=== PATIENT | male | born 1955 | race Asian ===

== ENCOUNTER 2016-11-06 01:44 | Emergency (ER) | payer MEDICARE ==
[2016-11-06] MEDS ORDERED: ASPIRIN 81 MG TABLET, CHEWABLE PO ONE (03:03)
[2016-11-06] MEDS ORDERED: ONDANSETRON 4 MG TAB.RAPDIS PO ONE (03:04)
[2016-11-06 03:38] LABS: ABSOLUTE BASOPHILS # (AUTO) 0.1 10^3/uL (0.0-0.2); ABSOLUTE EOSINOPHILS # (AUTO) 0.3 10^3/uL (0.0-0.6); ABSOLUTE LYMPHOCYTES (AUTO) 0.7 10^3/uL (0.5-4.7); ABSOLUTE MONOCYTES (AUTO) 0.6 10^3/uL (0.1-1.4); ABSOLUTE NEUT (AUTO) 3.4 10^3/uL (1.7-8.2); BASOPHILS % (AUTO) 1.7 % (0-2); EOSINOPHILS % (AUTO) 6.3 % (0-6); HEMATOCRIT 30.5 % (37.9-51.0); HEMOGLOBIN 9.9 g/dL (13.5-17.0); HGB HCT DIFFERENCE -0.8; LYMPHOCYTES % (AUTO) 13.5 % (13-45); MEAN CORPUSCULAR HEMOGLOBIN 31.4 pg (27.0-33.4); MEAN CORPUSCULAR HGB CONC 32.6 g/dL (32.0-36.0); MEAN CORPUSCULAR VOLUME 96 fl (80-97); RED BLOOD COUNT 3.17 10^6/uL (4.35-5.55); RED CELL DISTRIBUTION WIDTH 25.2 % (11.5-14.0); SEGMENTED NEUTROPHILS % (AUTO) 66.5 % (42-78); WHITE BLOOD COUNT 5.2 10^3/uL (4.0-10.5)
--- NOTE | 2016-11-06 03:38 | RADIOLOGY REPORT (SQ) ---
EXAM DESCRIPTION: CHEST SINGLE VIEW COMPLETED DATE/TIME: 11/06/2016 3:02 am REASON FOR STUDY: SOB COMPARISON: Chest x-ray 02/18/2016, CT chest 08/28/2015. EXAM PARAMETERS: NUMBER OF VIEWS: One view. TECHNIQUE: Single frontal radiographic view of the chest acquired. RADIATION DOSE: NA LIMITATIONS: None. FINDINGS: LUNGS AND PLEURA: No consolidation, pneumothorax or pleural effusion. MEDIASTINUM AND HILAR STRUCTURES: No masses. Contour normal. HEART AND VASCULAR STRUCTURES: The heart remains moderately enlarged. No overt vascular congestion. BONES: No acute findings. HARDWARE: None in the chest. IMPRESSION: Stable cardiomegaly. No consolidation or pleural effusion. TECHNICAL DOCUMENTATION: JOB ID: [id number]
[2016-11-06 03:40] LABS: ALANINE AMINOTRANSFERASE 36 U/L (21-72); ALBUMIN 4.3 g/dL (3.5-5.0); ALKALINE PHOSPHATASE 90 U/L (38-126); ANION GAP 15 (5-19); ASPARTATE AMINO TRANSFERASE 34 U/L (17-59); BILIRUBIN,DIRECT 0.5 mg/dL (0.0-0.4); BILIRUBIN,TOTAL 1.4 mg/dL (0.2-1.3); BLOOD UREA NITROGEN 35 mg/dL (7-20); CALCIUM 8.9 mg/dL (8.4-10.2); CARBON DIOXIDE 29 mmol/L (22-30); CHLORIDE 97 mmol/L (98-107); CREATINE KINASE 215 U/L (55-170); CREATININE RESULT 5.56 mg/dL (0.52-1.25); GLUCOSE 92 mg/dL (75-110); POTASSIUM 5.1 mmol/L (3.6-5.0); TOTAL PROTEIN 8.4 g/dL (6.3-8.2)
[2016-11-06 03:52] LABS: CREATINE KINASE MB 3.06 ng/mL (<4.55)
[2016-11-06 03:57] LABS: TROPONIN I 0.087 ng/mL
[2016-11-06 03:59] LABS: TOXIC VACUOLATION PRESENT
[2016-11-06 04:00] LABS: ACANTHOCYTES SLIGHT; ANISOCYTOSIS 3+; OVALOCYTES 1+; POIKILOCYTOSIS 2+; STOMATOCYTES 1+
[2016-11-06 04:01] LABS: TARGET CELLS 2+; TEAR DROP CELLS 1+
[2016-11-06 04:07] VITALS: BP 192/81
[2016-11-06] MEDS ORDERED: MAG HYDROX/AL HYDROX/SIMETH SUSP 30 ML UDCUP PO ONE (04:37)
[2016-11-06] MEDS ORDERED: LIDOCAINE 2% VISCOUS SOLN 20 ML UDCUP PO ONE (04:37)
--- NOTE | 2016-11-06 05:36 | ER Document Report ---
ED General - General Chief Complaint: Shortness Of Breath Stated Complaint: SHORTNESS OF BREATH Time Seen by Provider: 11/06/16 02:55 Notes: Patient is a 61 year old male with emergency department complaining of epigastric discomfort with radiation to his chest since yesterday afternoon before dialysis. Patient describes the patient is a chronic pressure and burning sensation starting in the stomach radiating up into his chest. Otherwise he admits to associated nausea, shortness of breath. Denies any chest pain, cough, dyspnea on exertion, neck pain, arm pain. Denies any vomiting, diarrhea or constipation. Denies any fevers or chills. Past medical history significant for end-stage renal disease secondary to type 2 diabetes TRAVEL OUTSIDE OF THE [place] IN LAST 30 DAYS: No - Related Data Allergies/Adverse Reactions: vancomycin [Vancomycin] Adverse Reaction (Unknown, Verified 11/06/16 02:08) molina syndrome Past Medical History - Social History Smoking Status: Never Smoker Frequency of alcohol use: None Drug Abuse: None Family History: Reviewed & Not Pertinent - Past Medical History Cardiac Medical History: Reports: Hx Congestive Heart Failure, Hx Coronary Artery Disease Endocrine Medical History: Reports: Hx Diabetes Mellitus Type 2 Renal/ Medical History: Reports: Hx End Stage Renal Disease, Hx Hemodialysis, Hx Renal Insufficiency GI Medical History: Reports: Hx Gastroesophageal Reflux Disease Musculoskeltal Medical History: Denies Hx Arthritis Past Surgical History: Reports: Hx Orthopedic Surgery, Hx Vascular Surgery - Immunizations Hx Diphtheria, Pertussis, Tetanus Vaccination: Yes Hx Pneumococcal Vaccination: 02/05/15 Review of Systems - Review of Systems Constitutional: No symptoms reported Cardiovascular: No symptoms reported Respiratory: See HPI Gastrointestinal: See HPI -: Yes All other systems reviewed and negative Physical Exam - Vital signs Vitals: Temp Resp BP Pulse Ox 98.2 F 20 187/78 H 100 11/06/16 02:04 11/06/16 02:04 11/06/16 02:04 11/06/16 02:04 - Notes Notes: PHYSICAL EXAM GENERAL: Alert, interacts well. NECK: Full range of motion. Supple. Trachea midline. LUNGS: Clear to auscultation bilaterally, no wheezes, rales, or rhonchi. No respiratory distress. HEART: Regular rate and rhythm. No murmurs, gallops, or rubs. ABDOMEN: Soft, nondistended, mild tenderness in the epigastrium. No guarding, rebound, or rigidity.. Bowel sounds present in all 4 quadrants. EXTREMITIES: Moves all 4 extremities spontaneously. No edema, radial and dorsalis pedis pulses 2/4 bilaterally. No cyanosis. NEUROLOGICAL: Alert and oriented x4. Normal speech. PSYCH: Normal affect, normal mood. SKIN: Warm, dry, normal turgor. No rashes or lesions noted. Course - Re-evaluation Re-evalutation: 11/06/16 06:39 Patient is a 61-year-old male but is stable, no acute distress and afebrile. Patient is very well in appearance, vitals within normal limits. Low clinical suspicion for ACS given clinical history, exam, EKG without ST elevations or depressions, and troponins consistent with his baseleine elevations. HEART score less than or equal to 3. PE also seems unlikely given clinical history, absence of tachycardia or dyspnea. Well's score of 0. CXR without evidence of pneumothorax or pneumonia. No widened mediastinum. Aortic dissection also seems unlikely given history, symmetric pulses, CXR, and vitals. At this time will discharge with return precautions and follow-up recommendations. Findings on PE consistent with GERD, patient with complete resolution after GI cocktail. Verbal discharge instructions given a the bedside and opportunity for questions given. Medication warnings reviewed. Patient is in agreement with this plan and has verbalized understanding of return precautions and the need for primary care follow-up in the next 24-72 hours. - Vital Signs Vital signs: Temp Pulse Resp BP Pulse Ox 98.2 F 18 192/81 H 97 11/06/16 02:04 11/06/16 04:01 11/06/16 04:01 11/06/16 04:01 - Laboratory Result Diagrams: 11/06/16 03:11 11/06/16 03:11 Laboratory results interpreted by me: 11/06/16 11/06/16 03:11 03:11 RBC 3.17 L Hgb 9.9 L Hct 30.5 L RDW 25.2 H Plt Count 135 L Eosinophils % 6.3 H Potassium 5.1 H Chloride 97 L BUN 35 H Creatinine 5.56 H Est GFR ( Amer) 13 L Est GFR (Non-Af Amer) 10 L Total Bilirubin 1.4 H Direct Bilirubin 0.5 H Creatine Kinase 215 H Total Protein 8.4 H - Diagnostic Test Radiology reviewed: Image reviewed, Reports reviewed - EKG Interpretation by Me When compared to previous EKG there are: No significant change Discharge - Discharge Clinical Impression: Heartburn Condition: Good Disposition: HOME, SELF-CARE Instructions: Reflux Disease (GERD) ([facility]) Additional Instructions: NORMAL EXAM AND WORKUP: At this time, your examination and workup show no significant abnormality. No significant abnormal physical findings were noted. All laboratory, EKG, and imaging (x-ray, CT scans, ultrasound) studies that were ordered show no significant abnormality. Although your examination and all studies that were ordered showed no significant abnormal finding, there are no examinations and no studies that are 100% accurate. There is always the possibility that some abnormality could exist and not be detected with physical examination or within the limits and capabilities of laboratory and other studies. You should return or follow up as you were instructed on your visit today for further evaluation if your symptoms do not resolve. ACID REFLUX DISEASE (GERD): Gastro-Esophageal Reflux Disease (GERD) is caused by stomach acid refluxing back up into the esophagus. The valve at the end of the esophagus may be weak. This is common in persons with a hiatal hernia. GERD symptoms can include indigestion, chest pain, heartburn, or food "sticking." Certain foods, alcohol, and aspirin can make GERD worse. Treatment depends on the severity. Usually, antacids or acid-suppressing medicines are used. When the esophagus is acutely inflamed, the physician will often prescribe membrane-protective drugs such as Carafate. Some patients benefit from medication such as Reglan that tightens the valve at the top of the stomach. Avoid those foods that bring on your symptoms. For many people, these foods are coffee, chocolate, onions, garlic, and carbonated drinks. Don't use alcohol, aspirin, caffeine, or tobacco. Don't eat late at night -- within 4 hours of bedtime. Don't over-eat. If necessary, elevate the head of your bed about 4 inches so that stomach acid will not roll up into your esophagus. Call the doctor if you develop severe chest pain, inability to swallow fluids, fever, or worsening symptoms. ANTACID THERAPY: You have been instructed to start antacid therapy. Antacids directly neutralize stomach acid. This is useful for acid irritation of the esophagus, gastritis, and ulcers. You should take two tablespoons of antacid one hour after each meal and three hours after each meal. If you are not eating, take the antacid every two hours. If you are using a concentrate (such as Maalox TC), use only one tablespoon. Many antacids affect the bowels. The most common problem is diarrhea. In this case, a pure aluminum hydroxide antacid (such as AlternaGel) can be substituted for some or all doses. If the problem is constipation, add a teaspoon of Milk of Magnesia to each dose. Call the doctor if you experience continued diarrhea or constipation, or if you develop lightheadedness, bloody stool or vomitus, severe abdominal pain, or black stool. PRILOSEC (ACID PUMP INHIBITOR): Prilosec (omeprazole) is an acid-pump inhibitor. It blocks the secretion of hydrogen ions in the acid-producing cells of the stomach. Prilosec keeps your stomach from making acid. Take all medication as prescribed, even after the pain is gone. Regular antacids may be added as needed if you have symptoms while taking this medicine. There are usually no side effects from this medication. Contact your doctor if there is fever, rash, yellow skin color, increasing abdominal pain, weakness, or unusual bruising. Return at once if you develop lightheadedness, black or bloody stool, or bloody vomitus. FOLLOW-UP CARE: If you have been referred to a physician for follow-up care, call the physician s office for an appointment as you were instructed or within the next two days. If you experience worsening or a significant change in your symptoms, notify the physician immediately or return to the Emergency Department at any time for re-evaluation. Prescriptions: Omeprazole Magnesium [Prilosec Otc] 40 mg PO DAILY #30 tablet. Ondansetron HCl [Zofran 4 mg Tablet] 1 - 2 tab PO Q4H PRN #30 tablet PRN Reason: Sucralfate [Carafate 1 gm Tablet] 1 gm PO ACHS #120 tablet Forms: Elevated Blood Pressure Referrals: FEI ZULETA MD [Primary Care Provider] - Follow up as needed
--- NOTE | 2016-11-06 10:53 | EKG REPORT ---
SEVERITY:- ABNORMAL ECG - SINUS RHYTHM FIRST DEGREE AV BLOCK RIGHT BUNDLE BRANCH BLOCK : Confirmed by: Rachid Eugene 06-Nov-2016 10:52:09
== END 2016-11-06 05:44 | disposition home or self-care (01) ==
LOC: ER 01:44
DX: R12 Heartburn (principal); R06.02 Shortness of breath; R10.13 Epigastric pain
CPT/HCPCS: 93005; 99285; 36415; 82553; 82550; 85025; 80053; 84484; 71010; 93010; A9270 ×2; J3490; S0119

== ENCOUNTER 2016-11-08 06:37 | Emergency (ER) | payer MEDICARE ==
[2016-11-08] MEDS ORDERED: FAMOTIDINE INJ/PF 20 MG/2 ML SDV IV ONE (06:55)
[2016-11-08] MEDS ORDERED: ONDANSETRON HCL INJ/PF 4 MG/2 ML SDV IV ONE ×2 (06:55→08:53)
--- NOTE | 2016-11-08 07:09 | RADIOLOGY REPORT (SQ) ---
EXAM DESCRIPTION: CHEST SINGLE VIEW COMPLETED DATE/TIME: 11/08/2016 6:58 am REASON FOR STUDY: CP COMPARISON: 11/06/2016. EXAM PARAMETERS: NUMBER OF VIEWS: One view. TECHNIQUE: Single frontal radiographic view of the chest acquired. RADIATION DOSE: NA LIMITATIONS: None. FINDINGS: LUNGS AND PLEURA: No opacities, masses or pneumothorax. No pleural effusion. MEDIASTINUM AND HILAR STRUCTURES: No masses. Contour normal. HEART AND VASCULAR STRUCTURES: Mild enlargement of the cardiac silhouette. BONES: No acute findings. HARDWARE: None in the chest. OTHER: No other significant finding. IMPRESSION: NO ACUTE RADIOGRAPHIC FINDING IN THE CHEST. TECHNICAL DOCUMENTATION: JOB ID: [id number]
[2016-11-08 08:00] LABS: ABSOLUTE BASOPHILS # (AUTO) 0.2 10^3/uL (0.0-0.2); ABSOLUTE EOSINOPHILS # (AUTO) 0.4 10^3/uL (0.0-0.6); ABSOLUTE LYMPHOCYTES (AUTO) 0.8 10^3/uL (0.5-4.7); ABSOLUTE MONOCYTES (AUTO) 0.9 10^3/uL (0.1-1.4); ABSOLUTE NEUT (AUTO) 3.9 10^3/uL (1.7-8.2); BASOPHILS % (AUTO) 2.5 % (0-2); EOSINOPHILS % (AUTO) 6.3 % (0-6); HEMATOCRIT 28.5 % (37.9-51.0); HEMOGLOBIN 9.4 g/dL (13.5-17.0); HGB HCT DIFFERENCE -0.3; LYMPHOCYTES % (AUTO) 12.3 % (13-45); MEAN CORPUSCULAR HEMOGLOBIN 31.3 pg (27.0-33.4); MEAN CORPUSCULAR HGB CONC 32.9 g/dL (32.0-36.0); MEAN CORPUSCULAR VOLUME 95 fl (80-97); MONOCYTES % (AUTO) 14.9 % (3-13); RED CELL DISTRIBUTION WIDTH 25.9 % (11.5-14.0); WHITE BLOOD COUNT 6.1 10^3/uL (4.0-10.5)
[2016-11-08] MEDS ORDERED: LORAZEPAM INJ 2 MG/1 ML VIAL IV ONE (08:07)
[2016-11-08 08:14] LABS: ALANINE AMINOTRANSFERASE 31 U/L (21-72); ALBUMIN 4.2 g/dL (3.5-5.0); ALKALINE PHOSPHATASE 80 U/L (38-126); ANION GAP 15 (5-19); ASPARTATE AMINO TRANSFERASE 33 U/L (17-59); BILIRUBIN,DIRECT 0.7 mg/dL (0.0-0.4); BILIRUBIN,TOTAL 1.5 mg/dL (0.2-1.3); BLOOD UREA NITROGEN 66 mg/dL (7-20); CALCIUM 8.3 mg/dL (8.4-10.2); CARBON DIOXIDE 28 mmol/L (22-30); CHLORIDE 97 mmol/L (98-107); CREATINE KINASE 446 U/L (55-170); GLUCOSE 88 mg/dL (75-110); LIPASE 100.7 U/L (23-300); SODIUM 139.7 mmol/L (137-145)
[2016-11-08 08:23] LABS: POTASSIUM 6.1 mmol/L (3.6-5.0)
[2016-11-08 08:28] LABS: CREATINE KINASE MB 3.84 ng/mL (<4.55)
[2016-11-08] MEDS ORDERED: INSULIN REG, HUMAN 100 UNIT/ML 3 ML VIAL (PYX) IV ONE (08:30)
[2016-11-08] MEDS ORDERED: CALCIUM GLUCONATE 1000 MG/10 ML INJ IV ONE (08:30)
[2016-11-08] MEDS ORDERED: DEXTROSE 50%-WATER 25 GM/50 ML DISP.SYRIN IV ONE ×3 (08:30→11:11)
[2016-11-08 08:31] LABS: TROPONIN I 0.124 ng/mL
[2016-11-08 08:44] LABS: ACANTHOCYTES SLIGHT; ANISOCYTOSIS 3+; HYPOCHROMASIA 1+; POIKILOCYTOSIS 2+; ROULEAUX 1+
[2016-11-08 08:45] LABS: OVALOCYTES 1+; TARGET CELLS SLIGHT
[2016-11-08] MEDS ORDERED: MORPHINE SULFATE 10 MG/ML INJ IV ONE (08:53)
[2016-11-08] MEDS ORDERED: SODIUM POLYSTYRENE SULFONATE 15 GM/60 ML PO ONE (09:26)
[2016-11-08] MEDS ORDERED: NORMAL SALINE 500 ML IV ONE (09:26)
--- NOTE | 2016-11-08 10:18 | ER Document Report ---
ED General - General Chief Complaint: Chest Pain Stated Complaint: CHEST PAIN Time Seen by Provider: 11/08/16 06:45 TRAVEL OUTSIDE OF THE [place] IN LAST 30 DAYS: No - HPI Patient complains to provider of: Chest pain epigastric pain nausea vomiting Notes: Coming in for evaluation chest pain substernal and epigastric pain. Patient was seen Tuesday for similar symptoms. Patient also having nausea vomiting with symptoms states symptoms are exacerbated after eating fried chicken. Patient denies any fevers chills nausea vomiting diarrhea. Patient is a end-stage renal dialysis patient and is scheduled to have his dialysis done today. - Related Data Allergies/Adverse Reactions: vancomycin [Vancomycin] Adverse Reaction (Unknown, Verified 11/06/16 02:08) molina syndrome Past Medical History - Social History Smoking Status: Unknown if Ever Smoked Family History: Reviewed & Not Pertinent - Past Medical History Cardiac Medical History: Reports: Hx Congestive Heart Failure, Hx Coronary Artery Disease Endocrine Medical History: Reports: Hx Diabetes Mellitus Type 2 Renal/ Medical History: Reports: Hx End Stage Renal Disease, Hx Hemodialysis, Hx Renal Insufficiency GI Medical History: Reports: Hx Gastroesophageal Reflux Disease Musculoskeltal Medical History: Denies Hx Arthritis Past Surgical History: Reports: Hx Orthopedic Surgery, Hx Vascular Surgery - Immunizations Hx Diphtheria, Pertussis, Tetanus Vaccination: Yes Hx Pneumococcal Vaccination: 02/05/15 Review of Systems - Review of Systems Constitutional: No symptoms reported EENT: No symptoms reported Cardiovascular: Chest pain Respiratory: No symptoms reported Gastrointestinal: Abdominal pain, Nausea, Vomiting Genitourinary: No symptoms reported Male Genitourinary: No symptoms reported Musculoskeletal: No symptoms reported Skin: No symptoms reported Hematologic/Lymphatic: No symptoms reported Neurological/Psychological: No symptoms reported -: Yes All other systems reviewed and negative Physical Exam - Vital signs Vitals: Resp 20 11/08/16 06:27 Interpretation: Normal - General General appearance: Appears well, Alert - HEENT Head: Normocephalic, Atraumatic Eyes: Normal Pupils: PERRL - Respiratory Respiratory status: No respiratory distress Chest status: Nontender Breath sounds: Normal Chest palpation: Normal - Cardiovascular Rhythm: Regular Heart sounds: Normal auscultation Murmur: No - Abdominal Inspection: Normal Distension: No distension Bowel sounds: Normal Tenderness: Tender - Epigastric and right upper quadrant tenderness.. No: McBurney's point, Steinberg's sign, Guarding, Rebound Organomegaly: No organomegaly - Back Back: Normal, Nontender - Extremities General upper extremity: Normal inspection, Nontender, Normal color, Normal ROM , Normal temperature, Other - AV fistula to the left upper extremity General lower extremity: Normal inspection, Nontender, Normal color, Normal ROM , Normal temperature, Normal weight bearing. No: Mercedes's sign - Neurological Neuro grossly intact: Yes Cognition: Normal Orientation: AAOx4 Virgie Coma Scale Eye Opening: Spontaneous Virgie Coma Scale Verbal: Oriented Doug Coma Scale Motor: Obeys Commands Virgie Coma Scale Total: 15 Speech: Normal Motor strength normal: LUE, RUE, LLE, RLE Sensory: Normal - Psychological Associated symptoms: Normal affect, Normal mood - Skin Skin Temperature: Warm Skin Moisture: Dry Skin Color: Normal Course - Re-evaluation Re-evalutation: 11/08/16 13:02 Patient presented today for evaluation of chest pain and epigastric pain. Patient's physical examination does reveal tenderness to palpation of the epigastric region. No tenderness chest wall. Initial evaluation concern for possible cardiac and GI pathology. Patient does state nausea vomiting after eating food. Patient was seen for this on Tuesday with noted relief with a GI cocktail negative workup except for slightly elevated bilirubin and was discharged home. After initiation of workup here in the ER patient did have approximately 12-15 beat run what looked to be V. tach. This was confirmed by her service counter cashier Dr. Cerda. Dr. Cerda recommended patient be transferred to a tertiary care facility for further evaluation by specialized cardiology team. Discussed with hospitalist and [facility] agreed to set the patient in transfer. Patient otherwise remained stable on the manager cardiac at this episode. No signs of any runs of V. tach. Patient was given 2 g of calcium insulin and dextrose for his potassium. Patient at this did become hypoglycemic patient was given D50 and also was given a meal. Patient was able tolerate a hospital meal without difficulty. Patient did initially due to the epigastric right upper quadrant pain have an ultrasound ordered at the time of the is stable and no other signs EKG abnormalities and the ultrasound was performed showing signs of acute cholecystitis. Again we did contact the hospitalist at [facility] who agreed that this time patient should receive IV antibiotics will be more likely no emergent surgery done until pathology is ruled out. At time transfer patient stable no signs of any other pathology. She was given 1 dose of Invanz for antibiotic coverage for the acute cholecystitis chest pain did improve with IV morphine. 11/08/16 13:47 11/08/16 13:49 EKG showed first-degree AV block with right bundle branch block no signs of significant pathology 11/08/16 13:49 - Vital Signs Vital signs: Temp Pulse Resp BP Pulse Ox 97.5 F 60 16 163/74 H 98 11/08/16 12:50 11/08/16 12:50 11/08/16 12:50 11/08/16 12:50 11/08/16 12:50 - Laboratory Result Diagrams: 11/08/16 07:40 11/08/16 10:50 Laboratory results interpreted by me: 11/08/16 11/08/16 11/08/16 07:40 07:40 07:40 RBC 3.00 L Hgb 9.4 L Hct 28.5 L RDW 25.9 H Plt Count 140 L Lymphocytes % 12.3 L Monocytes % 14.9 H Eosinophils % 6.3 H Basophils % 2.5 H Potassium 6.1 H* Chloride 97 L BUN 66 H Creatinine 9.90 H Est GFR ( Amer) 6 L Est GFR (Non-Af Amer) 5 L Glucose POC Glucose Calcium 8.3 L Magnesium 2.5 H Total Bilirubin 1.5 H Direct Bilirubin 0.7 H Creatine Kinase 446 H 11/08/16 11/08/16 10:50 11:08 RBC Hgb Hct RDW Plt Count Lymphocytes % Monocytes % Eosinophils % Basophils % Potassium 5.3 H Chloride BUN 67 H Creatinine 10.10 H Est GFR ( Amer) 6 L Est GFR (Non-Af Amer) 5 L Glucose 50 L POC Glucose 56 L Calcium Magnesium Total Bilirubin Direct Bilirubin Creatine Kinase Critical Care Note - Critical Care Note Total time excluding time spent on procedures (mins): 40 Comments: Evaluation patient with nonsustained V. tach Discharge - Discharge Clinical Impression: Acute cholecystitis, Hyperkalemia, Nonsustained ventricular tachycardia Chest pain Qualifiers: Chest pain type: unspecified Qualified Code(s): R07.9 - Chest pain, unspecified Condition: Good Disposition: [facility] Referrals: FEI ZULETA MD [Primary Care Provider] - Follow up as needed
[2016-11-08 11:25] LABS: ANION GAP 16 (5-19); BLOOD UREA NITROGEN 67 mg/dL (7-20); CALCIUM 8.4 mg/dL (8.4-10.2); CARBON DIOXIDE 26 mmol/L (22-30); CHLORIDE 99 mmol/L (98-107); GLUCOSE 50 mg/dL (75-110); POTASSIUM 5.3 mmol/L (3.6-5.0); SODIUM 141.4 mmol/L (137-145)
[2016-11-08] MEDS ORDERED: ERTAPENEM SODIUM INJ 1 GM VIAL IV ONE (12:53)
--- NOTE | 2016-11-08 13:01 | RADIOLOGY REPORT (SQ) ---
EXAM DESCRIPTION: U/S ABDOMEN LTD W/DOPPLER COMPLETED DATE/TIME: 11/08/2016 12:45 pm REASON FOR STUDY: epigastric RUQ pain COMPARISON: None. TECHNIQUE: Dynamic and static grayscale images acquired of the abdomen and recorded on PACS. Additio nal selected color Doppler and spectral images recorded. LIMITATIONS: None. FINDINGS: PANCREAS: No masses. Visualized pancreatic duct normal caliber. LIVER: 17.6 cm. No masses. Normal echotexture. LIVER VASCULATURE: Normal directional flow of the main portal vein and hepatic veins. GALLBLADDER: A couple gallstones are present. There is thickening gallbladder wall and pericholecyst ic fluid is present. ULTRASOUND-DETECTED HAMILTON'S SIGN: Negative. INTRAHEPATIC DUCTS AND COMMON DUCT: The common bile duct is within normal limits at 3.5 mm. INFERIOR VENA CAVA: Normal flow. AORTA: No aneurysm. RIGHT KIDNEY: Normal size, 8.8 cm. . Normal echogenicity. No solid or suspicious masses. There is a 38 mm cysts. No hydronephrosis. No calcifications. PERITONEAL AND RIGHT PLEURAL SPACE: There is a minimal amount of perihepatic and pericholecystic flui d. OTHER: Technologist noted small small mobile echogenic particles within the inferior vena cava. Upon review of the cine loop, this merely appears to be flow artifact. IMPRESSION: Cholelithiasis with thickening of the gallbladder wall and pericholecystic fluid suggest melba of cholecystitis. The common bile duct is normal. COMMENT: The findings were discussed with the ER physician at 1253 hours on this date. TECHNICAL DOCUMENTATION: JOB ID: [id number] [employer]- All Rights Reserved
[2016-11-08 13:26] VITALS: BP 163/74
--- NOTE | 2016-11-08 14:35 | EKG REPORT ---
SEVERITY:- ABNORMAL ECG - SINUS RHYTHM FIRST DEGREE AV BLOCK RIGHT BUNDLE BRANCH BLOCK : Confirmed by: Rachid Eugene 08-Nov-2016 14:35:10
--- NOTE | 2016-11-08 14:37 | EKG REPORT ---
SEVERITY:- ABNORMAL ECG - SINUS RHYTHM WITH ARTIFACTS RIGHT BUNDLE BRANCH BLOCK REC REPEAT EKG : Confirmed by: Rachid Eugene 08-Nov-2016 14:37:09
--- NOTE | 2016-11-08 14:38 | EKG REPORT ---
SEVERITY:- ABNORMAL ECG - SINUS RHYTHM FIRST DEGREE AV BLOCK RIGHT BUNDLE BRANCH BLOCK : Confirmed by: Rachid Eugene 08-Nov-2016 14:37:18
== END 2016-11-08 13:27 | disposition short-term general hospital (02) ==
LOC: ER 06:37
DX: I47.2 Ventricular tachycardia (principal); K80.00 Calculus of gallbladder with acute cholecystitis without obstruction; E87.5 Hyperkalemia; E11.649 Type 2 diabetes mellitus with hypoglycemia without coma; E11.22 Type 2 diabetes mellitus with diabetic chronic kidney disease; N18.6 End stage renal disease; Z99.2 Dependence on renal dialysis; I44.0 Atrioventricular block, first degree; I45.10 Unspecified right bundle-branch block; I25.10 Atherosclerotic heart disease of native coronary artery without angina pectoris; R07.89 Other chest pain; R10.13 Epigastric pain; R10.11 Right upper quadrant pain; R11.2 Nausea with vomiting, unspecified
CPT/HCPCS: 93005 ×2; 96376; 99291; 96361; 96375; 96365; 36415; 82553; 82962; 82550; 83690; 83735; 85025; 80048; 80053; 84484; 71010; 76705; 93976; 93010; J0610; J3490; J1335; J2270; J2060; A9270; J2405; J7040; S0028; J1815

== ENCOUNTER 2016-11-13 04:09 | Inpatient (IN) | payer MEDICARE ==
[2016-11-13] MEDS ORDERED: ASPIRIN 81 MG TABLET, CHEWABLE PO ONE (05:15)
--- NOTE | 2016-11-13 05:16 | ER Document Report ---
ED Medical Screen (RME) - General Chief Complaint: Chest Pain Stated Complaint: SHORTNESS OF BREATH Time Seen by Provider: 11/13/16 05:13 Information source: Patient Notes: Patient presents complaining of chest pain and shortness of breath that started around 10 PM today. Patient to his epigastric area as his source of tenderness. Patient denies any cough, nausea, or vomiting. Patient states that he was just discharged from the hospital yesterday for the same complaint. Patient was diagnosed with gallstones and states that the pain feels similar. Patient states that pain comes and goes. Reports that he did have a stress test during his last admission and states that the results were okay. hx: Dialysis Tuesday, GERD, cholelithiasis, diabetes, congestive heart failure TRAVEL OUTSIDE OF THE [place] IN LAST 30 DAYS: No - Related Data Allergies/Adverse Reactions: vancomycin [Vancomycin] Adverse Reaction (Unknown, Verified 11/06/16 02:08) molina syndrome Past Medical History - Past Medical History Cardiac Medical History: Reports: Hx Congestive Heart Failure, Hx Coronary Artery Disease Endocrine Medical History: Reports: Hx Diabetes Mellitus Type 2 Renal/ Medical History: Reports: Hx End Stage Renal Disease, Hx Hemodialysis, Hx Renal Insufficiency. Denies: Hx Peritoneal Dialysis GI Medical History: Reports: Hx Gastroesophageal Reflux Disease Musculoskeltal Medical History: Denies Hx Arthritis Past Surgical History: Reports: Hx Orthopedic Surgery, Hx Vascular Surgery - Immunizations Hx Diphtheria, Pertussis, Tetanus Vaccination: Yes Physical Exam - Vital signs Vitals: Temp Pulse Resp BP Pulse Ox 98.1 F 55 L 18 159/57 H 94 11/13/16 04:16 11/13/16 04:16 11/13/16 04:16 11/13/16 04:16 11/13/16 04:16 - Respiratory Respiratory status: No respiratory distress Chest status: Nontender Breath sounds: Normal Chest palpation: Normal - Abdominal Tenderness: Tender - epigastric tenderness Course - Vital Signs Vital signs: Temp Pulse Resp BP Pulse Ox 98.1 F 55 L 18 159/57 H 94 11/13/16 04:16 11/13/16 04:16 11/13/16 04:16 11/13/16 04:16 11/13/16 04:16
[2016-11-13 05:25] LABS: ABSOLUTE EOSINOPHILS # (AUTO) 0.6 10^3/uL (0.0-0.6); ABSOLUTE LYMPHOCYTES (AUTO) 0.9 10^3/uL (0.5-4.7); ABSOLUTE MONOCYTES (AUTO) 0.8 10^3/uL (0.1-1.4); ABSOLUTE NEUT (AUTO) 1.6 10^3/uL (1.7-8.2); BASOPHILS % (AUTO) 1.2 % (0-2); EOSINOPHILS % (AUTO) 14.5 % (0-6); HEMATOCRIT 27.6 % (37.9-51.0); HGB HCT DIFFERENCE -0.6; LYMPHOCYTES % (AUTO) 22.8 % (13-45); MEAN CORPUSCULAR HEMOGLOBIN 31.9 pg (27.0-33.4); MEAN CORPUSCULAR HGB CONC 32.7 g/dL (32.0-36.0); MEAN CORPUSCULAR VOLUME 98 fl (80-97); MONOCYTES % (AUTO) 19.5 % (3-13); RED BLOOD COUNT 2.83 10^6/uL (4.35-5.55); RED CELL DISTRIBUTION WIDTH 25.9 % (11.5-14.0); WHITE BLOOD COUNT 3.9 10^3/uL (4.0-10.5)
[2016-11-13 05:38] LABS: ALANINE AMINOTRANSFERASE 35 U/L (21-72); ALBUMIN 3.9 g/dL (3.5-5.0); ALKALINE PHOSPHATASE 66 U/L (38-126); ANION GAP 13 (5-19); ASPARTATE AMINO TRANSFERASE 41 U/L (17-59); BILIRUBIN,DIRECT 0.6 mg/dL (0.0-0.4); BLOOD UREA NITROGEN 35 mg/dL (7-20); CALCIUM 8.9 mg/dL (8.4-10.2); CARBON DIOXIDE 26 mmol/L (22-30); CHLORIDE 103 mmol/L (98-107); CREATINE KINASE 295 U/L (55-170); GLUCOSE 105 mg/dL (75-110); LIPASE 226.8 U/L (23-300); MAGNESIUM 2.2 mg/dL (1.6-2.3); POTASSIUM 5.1 mmol/L (3.6-5.0); SODIUM 141.5 mmol/L (137-145); TOTAL PROTEIN 7.3 g/dL (6.3-8.2)
--- NOTE | 2016-11-13 05:44 | RADIOLOGY REPORT (SQ) ---
EXAM DESCRIPTION: CHEST PA/LAT COMPLETED DATE/TIME: 11/13/2016 5:36 am REASON FOR STUDY: cp, sob COMPARISON: 02/18/2016, 01/28/2016. EXAM PARAMETERS: NUMBER OF VIEWS: two views TECHNIQUE: Digital Frontal and Lateral radiographic views of the chest acquired. RADIATION DOSE: NA LIMITATIONS: none FINDINGS: LUNGS AND PLEURA: No opacities, masses or pneumothorax. No pleural effusion. MEDIASTINUM AND HILAR STRUCTURES: No masses or contour abnormalities. HEART AND VASCULAR STRUCTURES: Moderate enlargement of the cardiac silhouette. BONES: No acute findings. HARDWARE: Lower cervical hardware. OTHER: No other significant finding. IMPRESSION: No acute cardiopulmonary findings. Moderate cardiac enlargement. TECHNICAL DOCUMENTATION: JOB ID: [id number] [employer]- All Rights Reserved
[2016-11-13 05:45] LABS: ANISOCYTOSIS 3+; OVALOCYTES SLIGHT; POIKILOCYTOSIS SLIGHT; POLYCHROMASIA SLIGHT; TARGET CELLS SLIGHT; TEAR DROP CELLS SLIGHT
[2016-11-13 05:48] LABS: CREATINE KINASE MB 2.89 ng/mL (<4.55)
[2016-11-13 05:54] LABS: TROPONIN I 0.057 ng/mL
[2016-11-13] MEDS: OXYCODONE-ACETAMINOPHEN 5-325 MG TABLET PO ONE (06:00)
[2016-11-13] MEDS ORDERED: ONDANSETRON HCL INJ/PF 4 MG/2 ML SDV IV ONE (07:07)
[2016-11-13] MEDS ORDERED: MORPHINE SULFATE 10 MG/ML INJ IV ONE (07:07)
[2016-11-13] MEDS ORDERED: NORMAL SALINE 1000 ML 1,000 ML IV ONE (07:07)
--- NOTE | 2016-11-13 07:22 | RADIOLOGY REPORT (SQ) ---
EXAM DESCRIPTION: U/S ABDOMEN LIMITED W/O DOP COMPLETED DATE/TIME: 11/13/2016 7:12 am REASON FOR STUDY: epig pain, hx gallstones COMPARISON: None. TECHNIQUE: Dynamic and static grayscale images acquired of the abdomen and recorded on PACS. Additio nal selected color Doppler and spectral images recorded. LIMITATIONS: None. FINDINGS: PANCREAS: No masses. Visualized pancreatic duct normal caliber. LIVER: No masses. Echotexture normal. LIVER VASCULATURE: Normal directional flow of the main portal vein and hepatic veins. GALLBLADDER: 1.1 cm gallstone. Minimal pericholecystic fluid. 0.5 cm gallbladder wall thickness. ULTRASOUND-DETECTED STEINBERG'S SIGN: Negative. INTRAHEPATIC DUCTS AND COMMON DUCT: 0.5 cm diameter CBD and intrahepatic ducts normal caliber. No stanton ling defects. INFERIOR VENA CAVA: Normal flow. AORTA: No aneurysm. RIGHT KIDNEY: Normal size. Normal echogenicity. No solid or suspicious masses. No hydronephrosis. No calcifications. Multiple likely benign cysts measure up to 4.8 cm, not definitively characterized. PERITONEAL AND RIGHT PLEURAL SPACE: No ascites or effusions. OTHER: No other significant findings. IMPRESSION: Cholelithiasis. Nonspecific small pericholecystic fluid and moderate gallbladder wall t hickening. Negative sonographic Steinberg's test. Consider laboratory correlation. Otherwise unremark able abdominal sonogram. TECHNICAL DOCUMENTATION: JOB ID: [id number]- All Rights Reserved
[2016-11-13] MEDS ORDERED: ERTAPENEM SODIUM INJ 1 GM VIAL IV ONE (07:52)
--- NOTE | 2016-11-13 08:18 | ER Document Report ---
ED General - General Chief Complaint: Chest Pain Stated Complaint: SHORTNESS OF BREATH Time Seen by Provider: 11/13/16 05:13 TRAVEL OUTSIDE OF THE [place] IN LAST 30 DAYS: No - HPI Patient complains to provider of: epiGastric right upper quadrant Notes: Patient is coming in for evaluation of epigastric right upper quadrant pain. Patient was seen approximately 5 days prior by myself for similar pain found to have a run of V. tach and was transferred for cardiac standpoint at that time patient had an ultrasound showing pericholecystic fluid consistent with acute cholecystitis. Patient states she had a negative stress test performed at transferring facility [facility] however no further investigation of the patient's gallbladder was performed. Patient states night prior to arrival was eating chicken soup when pain recurred. Upon my evaluation patient is resting comfortably no signs of obvious distress. - Related Data Allergies/Adverse Reactions: vancomycin [Vancomycin] Adverse Reaction (Unknown, Verified 11/06/16 02:08) molina syndrome Past Medical History - General Information source: Patient - Social History Smoking Status: Unknown if Ever Smoked Drug Abuse: None Family History: Reviewed & Not Pertinent Patient has suicidal ideation: No Patient has homicidal ideation: No - Past Medical History Cardiac Medical History: Reports: Hx Congestive Heart Failure, Hx Coronary Artery Disease Endocrine Medical History: Reports: Hx Diabetes Mellitus Type 2 Renal/ Medical History: Reports: Hx End Stage Renal Disease, Hx Hemodialysis, Hx Renal Insufficiency. Denies: Hx Peritoneal Dialysis GI Medical History: Reports: Hx Gastroesophageal Reflux Disease Musculoskeltal Medical History: Denies Hx Arthritis Past Surgical History: Reports: Hx Orthopedic Surgery, Hx Vascular Surgery - Immunizations Hx Diphtheria, Pertussis, Tetanus Vaccination: Yes Hx Pneumococcal Vaccination: 02/05/15 Review of Systems - Review of Systems Constitutional: No symptoms reported EENT: No symptoms reported Cardiovascular: No symptoms reported Respiratory: No symptoms reported Gastrointestinal: Abdominal pain Genitourinary: No symptoms reported Male Genitourinary: No symptoms reported Musculoskeletal: No symptoms reported Skin: No symptoms reported Hematologic/Lymphatic: No symptoms reported Neurological/Psychological: No symptoms reported -: Yes All other systems reviewed and negative Physical Exam - Vital signs Vitals: Temp Pulse Resp BP Pulse Ox 98.1 F 55 L 18 159/57 H 94 11/13/16 04:16 11/13/16 04:16 11/13/16 04:16 11/13/16 04:16 11/13/16 04:16 Interpretation: Normal - General General appearance: Appears well, Alert - HEENT Head: Normocephalic, Atraumatic Eyes: Normal Pupils: PERRL - Respiratory Respiratory status: No respiratory distress Chest status: Nontender Breath sounds: Normal Chest palpation: Normal - Cardiovascular Rhythm: Regular Heart sounds: Normal auscultation Murmur: No - Abdominal Inspection: Normal Distension: No distension Bowel sounds: Normal Tenderness: Tender - right Upper quadrant moderate to palpation Organomegaly: No organomegaly - Back Back: Normal, Nontender - Extremities General upper extremity: Normal inspection, Nontender, Normal color, Normal ROM , Normal temperature General lower extremity: Normal inspection, Nontender, Normal color, Normal ROM , Normal temperature, Normal weight bearing. No: Mercedes's sign - Neurological Neuro grossly intact: Yes Cognition: Normal Orientation: AAOx4 Sunflower Coma Scale Eye Opening: Spontaneous Doug Coma Scale Verbal: Oriented Doug Coma Scale Motor: Obeys Commands Doug Coma Scale Total: 15 Speech: Normal Motor strength normal: LUE, RUE, LLE, RLE Sensory: Normal - Psychological Associated symptoms: Normal affect, Normal mood - Skin Skin Temperature: Warm Skin Moisture: Dry Skin Color: Normal Course - Re-evaluation Re-evalutation: 11/13/16 08:17 Patient coming in for evaluation of epigastric right upper quadrant pain. Ultrasound shows pericholecystic fluid thickened gallbladder and gallstones consistent with previous ultrasound. Patient will be given a dose of Invanz n.p.o. the patient's case will be discussed with the surgeon on-call at this time. 11/13/16 09:56 Discussed with surgeon occupational therapist recommend medical admission at this time that are older only has 2 surgical packs and can only do 2 surgeries currently at this time. Patient otherwise has no signs of sepsis or obstruction. Discussed with covering physician Dr. Gray agrees for medical admission - Vital Signs Vital signs: Temp Pulse Resp BP Pulse Ox 98.1 F 55 L 18 159/57 H 94 11/13/16 04:16 11/13/16 04:16 11/13/16 04:16 11/13/16 04:16 11/13/16 04:16 - Laboratory Result Diagrams: 11/13/16 05:10 11/13/16 05:10 Laboratory results interpreted by me: 11/13/16 11/13/16 05:10 05:10 WBC 3.9 L RBC 2.83 L Hgb 9.0 L Hct 27.6 L MCV 98 H RDW 25.9 H Monocytes % 19.5 H Eosinophils % 14.5 H Absolute Neutrophils 1.6 L Potassium 5.1 H BUN 35 H Creatinine 5.90 H Est GFR ( Amer) 12 L Est GFR (Non-Af Amer) 10 L Direct Bilirubin 0.6 H Creatine Kinase 295 H Discharge - Discharge Clinical Impression: Acute cholecystitis, CKD (chronic kidney disease) stage V requiring chronic dialysis Type I diabetes mellitus Qualifiers: Diabetes mellitus complication status: with unspecified complications Qualified Code(s): E10.8 - Type 1 diabetes mellitus with unspecified complications Admitting Provider: Nestor Gray covering Unit Admitted: Medical Floor
[2016-11-13] MEDS: MORPHINE SULFATE 10 MG/ML INJ IV PRN ×3 (12:37→21:56)
[2016-11-13] MEDS ORDERED: NITROGLYCERIN 0.4 MG/TAB 25 TAB/BOTTLE SL PRN (14:36)
[2016-11-13] MEDS ORDERED: TRAMADOL HCL 50 MG TABLET PO PRN (14:36)
[2016-11-13] MEDS ORDERED: (PENDING PHARMACY ID) (Oxymorphone Hcl [Opana] 10 MG) PO PRN (14:36)
[2016-11-13] MEDS ORDERED: (PENDING PHARMACY ID) (Isosorbide Mononitrate [Isosorbide Mononitrate Er] 120 MG) PO SCH (16:00)
[2016-11-13] MEDS ORDERED: DEXTROSE 40% GEL 15 GM TUBE PO PRN (16:02)
[2016-11-13] MEDS ORDERED: DEXTROSE 50%-WATER SYRINGE 12.5 GM/25 ML DOSE IV PRN (16:02)
[2016-11-13] MEDS ORDERED: INSULIN REG, HUMAN 100 UNIT/ML 3 ML VIAL (PYX) SUBCUT PRN (16:02)
[2016-11-13] MEDS ORDERED: GLUCAGON,HUMAN RECOMB 1 MG INJ IM PRN (16:02)
[2016-11-13] MEDS ORDERED: DEXTROSE 40% GEL 15 GM TUBE X 2 PO PRN (16:02)
[2016-11-13] MEDS ORDERED: DEXTROSE 50%-WATER SYRINGE 25 GM/50 ML DOSE IV PRN (16:02)
[2016-11-13] MEDS: CARVEDILOL 3.125 MG TABLET PO SCH (16:25)
[2016-11-13] MEDS: ISOSORBIDE MONONITRATE 60 MG TAB.ER.24H PO SCH (16:25)
[2016-11-13] MEDS: CALCIUM ACETATE 667 MG CAPSULE PO SCH (16:25)
[2016-11-13] MEDS: SUCRALFATE SUSP 1 GM/10 ML UDCUP PO SCH ×2 (16:26→21:56)
--- NOTE | 2016-11-13 16:43 | CONSULTATION REPORT E ---
Consultation Report NAME: CHAPITO LESLIE : 1955 AGE: 61Y DATE: 11/13/2016 530 A TO: OMARI AGUILERA M.D. FROM: FEI ZULETA M.D. Requesting Physician CHIEF COMPLAINT: Patient with cholelithiasis and cholecystitis on ultrasound. HISTORY OF PRESENT ILLNESS: This is a 61-year-old male who was seen at the emergency room several days ago complaining of epigastric pain radiating to the chest. There was a question of a cardiac abnormality or cardiac arrhythmia with V-tach. The patient had stones in gallbladder and pericholecystic fluid. He was then transferred to [facility] where he had stress testing which the patient claimed was normal. The patient got discharged the other day but came back today to the [place] emergency room for the same epigastric pain radiating to the right upper quadrant and upper chest. Again he had an ultrasound of the gallbladder which showed gallstones with less pericholecystic fluid. He is tender in the epigastric and right upper quadrant. He is a dialysis patient and his dialysis is Mondays, Wednesdays and Fridays. He had dialysis yesterday, Tuesday. PAST MEDICAL HISTORY: 1. History of GERD. 2. Diabetes mellitus. 3. CHF. 4. History of coronary artery disease. ALLERGIES: VANCOMYCIN--RICKY SYNDROME. REVIEW OF SYSTEMS: As in HPI. Denies any visual or hearing problems. No shortness of breath. Some mild chest pains radiating from the epigastric area. No diarrhea, no constipation or dysuria. PHYSICAL EXAMINATION: VITAL SIGNS: Temperature of 98.1 degrees Fahrenheit, pulse of 55 per minute, respiratory 18 per minute, blood pressure 159/57 and pulse oximetry of 94% on room air. LUNGS: Showed good breath sounds bilaterally. HEART: Regular sinus rhythm. ABDOMEN: Tenderness in the epigastric area and mild tenderness in the right upper quadrant. EXTREMITIES: No edema. IMPRESSION: Cholelithiasis with acute cholecystitis. PLAN: To keep the patient n.p.o. from midnight and do an urgent laparoscopic cholecystectomy in the a.m. DICTATING PHYSICIAN: OMARI AGUILERA M.D. [id number] Y#: [id number] ID: [id number] JOB#: [id number] ACCT: [id number] cc:OMARI AGUILERA M.D. >
[2016-11-13] MEDS ORDERED: (PENDING PHARMACY ID) (Diclofenac Sodium [Voltaren] 2 GM) TP SCH (18:00)
[2016-11-13 18:21] LABS: HEMATOCRIT 29.1 % (37.9-51.0); HEMOGLOBIN 9.6 g/dL (13.5-17.0); HGB HCT DIFFERENCE -0.3; MEAN CORPUSCULAR HEMOGLOBIN 32.2 pg (27.0-33.4); MEAN CORPUSCULAR HGB CONC 33.1 g/dL (32.0-36.0); MEAN CORPUSCULAR VOLUME 97 fl (80-97); RED BLOOD COUNT 2.99 10^6/uL (4.35-5.55); RED CELL DISTRIBUTION WIDTH 25.3 % (11.5-14.0); WHITE BLOOD COUNT 3.7 10^3/uL (4.0-10.5)
[2016-11-13 18:42] LABS: ANION GAP 16 (5-19); BLOOD UREA NITROGEN 40 mg/dL (7-20); CALCIUM 9.2 mg/dL (8.4-10.2); CARBON DIOXIDE 29 mmol/L (22-30); CHLORIDE 99 mmol/L (98-107); CREATININE RESULT 6.79 mg/dL (0.52-1.25); GLUCOSE 107 mg/dL (75-110); POTASSIUM 5.4 mmol/L (3.6-5.0)
[2016-11-13 18:44] LABS: BAND NEUTROPHILS % (MANUAL) 1 % (3-5); BASOPHILS % (MANUAL) 1 % (0-2); EOSINOPHILS % (MANUAL) 21 % (0-6); LYMPHOCYTES % (MANUAL) 29 % (13-45); NUCLEATED RED BLOOD CELLS 1 /100 WBC (0); TOTAL CELLS COUNTED 100
[2016-11-13 18:46] LABS: ANISOCYTOSIS 2+; OVALOCYTES SLIGHT; POIKILOCYTOSIS 2+
[2016-11-13 18:47] LABS: TARGET CELLS 1+; TEAR DROP CELLS SLIGHT
[2016-11-13] MEDS: INSULIN GLARGINE,HUM.REC.ANLOG 300 UNIT/3 ML INSULN.PEN SUBCUT SCH (23:39)
[2016-11-14] MEDS: LANSOPRAZOLE 15 MG TAB.RAP.DR PO SCH (05:24)
[2016-11-14] MEDS: CALCIUM ACETATE 667 MG CAPSULE PO SCH ×3 (08:30→17:28)
[2016-11-14] MEDS: AMLODIPINE BESYLATE 5 MG TABLET PO SCH (09:34)
[2016-11-14] MEDS: SUCRALFATE SUSP 1 GM/10 ML UDCUP PO SCH ×4 (09:34→22:05)
[2016-11-14] MEDS: CARVEDILOL 3.125 MG TABLET PO SCH ×2 (09:34→17:31)
[2016-11-14] MEDS: ASPIRIN 81 MG TABLET, ENT COATED PO SCH (09:34)
[2016-11-14 10:39] LABS: ALANINE AMINOTRANSFERASE 39 U/L (21-72); ALBUMIN 3.8 g/dL (3.5-5.0); ALKALINE PHOSPHATASE 56 U/L (38-126); ANION GAP 13 (5-19); ASPARTATE AMINO TRANSFERASE 44 U/L (17-59); BILIRUBIN,DIRECT 0.6 mg/dL (0.0-0.4); BILIRUBIN,TOTAL 0.8 mg/dL (0.2-1.3); BLOOD UREA NITROGEN 54 mg/dL (7-20); CALCIUM 8.7 mg/dL (8.4-10.2); CARBON DIOXIDE 27 mmol/L (22-30); CHLORIDE 101 mmol/L (98-107); CREATININE RESULT 8.42 mg/dL (0.52-1.25); GLUCOSE 81 mg/dL (75-110); SODIUM 141.2 mmol/L (137-145); TOTAL PROTEIN 7.2 g/dL (6.3-8.2)
[2016-11-14] MEDS: MORPHINE SULFATE 10 MG/ML INJ IV PRN ×3 (11:49→23:28)
--- NOTE | 2016-11-14 12:35 | PROGRESS NOTE E ---
Progress Note NAME: CHAPITO LESLIE : 1955 AGE: 61Y DATE: 11/14/2016 ROOM: 530 SUBJECTIVE: He remains afebrile though still complaining of some right upper quadrant pains. OBJECTIVE: His abdomen is soft with mild tenderness in right upper quadrant. ASSESSMENT: His potassium went up to 6.0 though his white count remained low at 3.7 with a hemoglobin of 9.6. PLAN: He is due to have his dialysis tomorrow. Also Anesthesia is waiting for his records from the other hospital who did his stress test. The nurse told me that they were not able to get the records on the weekend, and I told the anesthesiologist we can cancel the case today and have his dialysis tomorrow and possibly do the laparoscopic cholecystectomy tomorrow or Tuesday. DICTATING PHYSICIAN: OMARI AGUILERA M.D. [id number] PHY#: [id number] ID: [id number] JOB#: [id number] ACCT: [id number] cc: >
--- NOTE | 2016-11-14 13:02 | PDOC H&P ---
History of Present Illness Admission Date/PCP: 11/13/16 09:18 FEI ZULETA MD History of Present Illness: CHAPITO LESLIE is a 61 year old male, he has end-stage kidney disease on maintenance hemodialysis, about 5 days ago he came to the emergency room for evaluation of chest pain, at that time he was transferred to the [facility], he was evaluated, had a Cardiolite Lexiscan stress test according to patient and it was negative. He presented again to the emergency room with epigastric pain, he was evaluated in the emergency room, ultrasound of the abdomen was done he demonstrated gallstones. Consultation was requested from surgery but because patient have multiple comorbid conditions ,medicine was consulted to admit the patient to the hospital Past Medical History Cardiac Medical History: Reports: Congestive Heart Failure, Coronary Artery Disease Endocrine Medical History: Reports: Diabetes Mellitus Type 2 Renal/ Medical History: Reports: End Stage Renal Disease GI Medical History: Reports: Gastroesophageal Reflux Disease Hematology: Reports: Anemia Past Surgical History Past Surgical History: Reports: Orthopedic Surgery, Vascular Surgery Social History Smoking Status: Former Smoker Frequency of Alcohol Use: None Hx Recreational Drug Use: No Hx Prescription Drug Abuse: No - Advance Directive Resuscitation Status: Full Code Family History Family History: Reviewed & Not Pertinent Parental Family History Reviewed: Yes Children Family History Reviewed: Yes Sibling(s) Family History Reviewed.: Yes Medication/Allergy Home Medications: Amlodipine Besylate [Norvasc 5 mg Tablet] 5 mg PO DAILY 11/13/16 Aspirin [Aspirin EC] 81 mg PO DAILY 11/13/16 Calcium Acetate [Phoslo 667 Mg Capsule] 1,334 mg PO MEALS 11/13/16 Carvedilol [Coreg 3.125 mg Tablet] 3.125 mg PO BIDACBS 11/13/16 Diclofenac Sodium [Voltaren] 2 gm TP QID 11/13/16 Insulin Glargine,Hum.rec.anlog [Lantus Solostar] 5 unit SQ QHS 11/13/16 Isosorbide Mononitrate [Isosorbide Mononitrate ER] 120 mg PO ACSUPPER 11/13/16 Nitroglycerin [Nitrostat 0.4 mg (1/150 Gr) Tabs 25/Bottle] 1 tab SL Q5MP PRN 03/22 Omeprazole 20 mg PO Q6AM 11/13/16 Oxymorphone HCl [Opana] 10 mg PO Q8HP PRN 11/13/16 Sucralfate [Carafate Susp 1 Gm/10 Ml Udcup] 1 gm PO QID 11/13/16 Tramadol HCl [Ultram 50 mg Tablet] 50 mg PO BIDP PRN 11/13/16 Allergies/Adverse Reactions: vancomycin [Vancomycin] Adverse Reaction (Unknown, Verified 11/06/16 02:08) molina syndrome Review of Systems Constitutional: ABSENT: chills, fever(s), headache(s), weight gain, weight loss Eyes: ABSENT: visual disturbances Ears: ABSENT: hearing changes Cardiovascular: ABSENT: chest pain, dyspnea on exertion, edema, orthropnea, palpitations Respiratory: ABSENT: cough, hemoptysis Gastrointestinal: PRESENT: abdominal pain Genitourinary: ABSENT: dysuria, hematuria Musculoskeletal: ABSENT: joint swelling Integumentary: ABSENT: rash, wounds Neurological: ABSENT: abnormal gait, abnormal speech, confusion, dizziness, focal weakness, syncope Psychiatric: ABSENT: anxiety, depression, homidical ideation, suicidal ideation Endocrine: ABSENT: cold intolerance, heat intolerance, menstrual abnormalities, polydipsia, polyuria Hematologic/Lymphatic: ABSENT: easy bleeding, easy bruising, lymphadenopathy Physical Exam Vital Signs: Temp Pulse Resp BP Pulse Ox 98 F 55 L 20 173/69 H 95 11/14/16 08:00 11/14/16 08:00 11/14/16 08:00 11/14/16 08:00 11/14/16 08:00 Intake & Output 11/13/16 11/14/16 11/15/16 06:59 06:59 06:59 Intake Total 240 Output Total 74 Balance 166 General appearance: PRESENT: mild distress Head exam: PRESENT: atraumatic, normocephalic Eye exam: PRESENT: PERRLA. ABSENT: scleral icterus Ear exam: PRESENT: normal external ear exam Mouth exam: PRESENT: moist, tongue midline Neck exam: PRESENT: full ROM Respiratory exam: PRESENT: clear to auscultation john Cardiovascular exam: PRESENT: RRR, +S1, +S2 Pulses: PRESENT: normal dorsalis pedis pul, +2 pedal pulses bilateral Vascular exam: PRESENT: normal capillary refill GI/Abdominal exam: PRESENT: tenderness Rectal exam: PRESENT: deferred Neurological exam: PRESENT: alert, awake, oriented to person, oriented to place , oriented to time, oriented to situation, CN II-XII grossly intact. ABSENT: motor sensory deficit Psychiatric exam: PRESENT: appropriate affect, normal mood Skin exam: PRESENT: dry, intact, warm. ABSENT: cyanosis, rash Results Laboratory Results: 11/13/16 18:00 11/14/16 10:05 11/13/16 11/13/16 11/14/16 18:00 18:00 10:05 WBC 3.7 L RBC 2.99 L Hgb 9.6 L Hct 29.1 L MCV 97 MCH 32.2 MCHC 33.1 RDW 25.3 H Plt Count 156 Seg Neutrophils % Not Reportable Lymphocytes % Not Reportable Monocytes % Not Reportable Eosinophils % Not Reportable Basophils % Not Reportable Absolute Neutrophils Not Reportable Absolute Lymphocytes Not Reportable Absolute Monocytes Not Reportable Absolute Eosinophils Not Reportable Absolute Basophils Not Reportable Sodium 144.0 141.2 Potassium 5.4 H 6.0 H* Chloride 99 101 Carbon Dioxide 29 27 Anion Gap 16 13 BUN 40 H 54 H Creatinine 6.79 H 8.42 H Est GFR ( Amer) 10 L 8 L Est GFR (Non-Af Amer) 8 L 6 L Glucose 107 81 Calcium 9.2 8.7 Total Bilirubin 0.8 AST 44 ALT 39 Alkaline Phosphatase 56 Total Protein 7.2 Albumin 3.8 Impressions: Abdomen Ultrasound 11/13/16 05:14 IMPRESSION: Cholelithiasis. Nonspecific small pericholecystic fluid and moderate gallbladder wall thickening. Negative sonographic Steinberg's test. Consider laboratory correlation. Otherwise unremarkable abdominal sonogram. Chest X-Ray 11/13/16 05:14 IMPRESSION: No acute cardiopulmonary findings. Moderate cardiac enlargement. Assessment & Plan - Diagnosis (1) Acute calculous cholecystitis Is this a current diagnosis for this admission?: YesPlan: Surgical consultation will be requested (2) End stage renal disease Is this a current diagnosis for this admission?: Yes (3) Diabetes mellitus Qualifiers: Diabetes mellitus type: type 2 Diabetes mellitus complication status: with neurologic complications Diabetes mellitus complication detail: with polyneuropathy Diabetes mellitus meterman insulin use: with custodial use Qualified Code(s): E11.42 - Type 2 diabetes mellitus with diabetic polyneuropathy; Z79.4 - 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 (current) use of insulin Is this a current diagnosis for this admission?: Yes
[2016-11-14] MEDS: SODIUM POLYSTYRENE SULFONATE 15 GM/60 ML PO SCH ×3 (13:20→22:06)
--- NOTE | 2016-11-14 14:45 | PDOC PROGRESS REPORT ---
Subjective Progress Note for:: 11/14/16 Subjective:: Patient was admitted yesterday he was supposed to have a laparoscopic cholecystectomy today for acute calculus, cholecystitis but he had hyperkalemia so the surgery was cancelled Physical Exam Vital Signs: Temp Pulse Resp BP Pulse Ox 98 F 51 L 20 165/66 H 97 11/14/16 12:00 11/14/16 12:00 11/14/16 12:00 11/14/16 12:00 11/14/16 12:00 Intake & Output 11/13/16 11/14/16 11/15/16 06:59 06:59 06:59 Intake Total 240 Output Total 74 Balance 166 General appearance: PRESENT: no acute distress Eye exam: PRESENT: PERRLA Respiratory exam: PRESENT: clear to auscultation john Cardiovascular exam: PRESENT: +S1, +S2 GI/Abdominal exam: PRESENT: soft Results Laboratory Results: 11/13/16 18:00 11/14/16 10:05 11/13/16 11/13/16 11/14/16 18:00 18:00 10:05 WBC 3.7 L RBC 2.99 L Hgb 9.6 L Hct 29.1 L MCV 97 MCH 32.2 MCHC 33.1 RDW 25.3 H Plt Count 156 Seg Neutrophils % Not Reportable Lymphocytes % Not Reportable Monocytes % Not Reportable Eosinophils % Not Reportable Basophils % Not Reportable Absolute Neutrophils Not Reportable Absolute Lymphocytes Not Reportable Absolute Monocytes Not Reportable Absolute Eosinophils Not Reportable Absolute Basophils Not Reportable Sodium 144.0 141.2 Potassium 5.4 H 6.0 H* Chloride 99 101 Carbon Dioxide 29 27 Anion Gap 16 13 BUN 40 H 54 H Creatinine 6.79 H 8.42 H Est GFR ( Amer) 10 L 8 L Est GFR (Non-Af Amer) 8 L 6 L Glucose 107 81 Calcium 9.2 8.7 Total Bilirubin 0.8 AST 44 ALT 39 Alkaline Phosphatase 56 Total Protein 7.2 Albumin 3.8 Impressions: Abdomen Ultrasound 11/13/16 05:14 IMPRESSION: Cholelithiasis. Nonspecific small pericholecystic fluid and moderate gallbladder wall thickening. Negative sonographic Steinberg's test. Consider laboratory correlation. Otherwise unremarkable abdominal sonogram. Chest X-Ray 11/13/16 05:14 IMPRESSION: No acute cardiopulmonary findings. Moderate cardiac enlargement. Assessment & Plan - Diagnosis (1) Acute calculous cholecystitis Is this a current diagnosis for this admission?: Yes (2) End stage renal disease Is this a current diagnosis for this admission?: Yes (3) Diabetes mellitus Qualifiers: Diabetes mellitus type: type 2 Diabetes mellitus complication status: with neurologic complications Diabetes mellitus complication detail: with polyneuropathy Diabetes mellitus correction insulin use: with correction use Qualified Code(s): E11.42 - Type 2 diabetes mellitus with diabetic polyneuropathy; Z79.4 - residential (current) use of insulin Is this a current diagnosis for this admission?: Yes (4) Hyperkalemia Is this a current diagnosis for this admission?: YesPlan: Treat patient with Kayexalate
[2016-11-14] MEDS: ISOSORBIDE MONONITRATE 60 MG TAB.ER.24H PO SCH (17:28)
[2016-11-14] MEDS ORDERED: AMLODIPINE BESYLATE 5 MG TABLET PO ONE (22:00)
[2016-11-14] MEDS: INSULIN GLARGINE,HUM.REC.ANLOG 300 UNIT/3 ML INSULN.PEN SUBCUT SCH (22:05)
[2016-11-15] MEDS: LANSOPRAZOLE 15 MG TAB.RAP.DR PO SCH (05:48)
--- NOTE | 2016-11-15 08:40 | PDOC PROGRESS REPORT ---
Subjective Progress Note for:: 11/15/16 Subjective:: Patient was admitted because of the acute cholecystitis and currently stable waiting for the surgery. Patient supposed to go for the surgery but because of the dialysis was not done on the weekends so unable to go Patients denied any chest pain denied any shortness of the breath Patient's abdominal pain is under well control Patient scheduled for the dialysis Patient also seen the cardiology at the [facility] and the recently have a stress test was done and according to the patient was all stable Physical Exam Vital Signs: Temp Pulse Resp BP Pulse Ox 98.0 F 54 L 18 171/61 H 97 11/15/16 07:34 11/15/16 07:34 11/15/16 07:34 11/15/16 07:34 11/15/16 07:34 Intake & Output 11/14/16 11/15/16 11/16/16 06:59 06:59 06:59 Intake Total 240 655 Output Total 74 0 Balance 166 655 General appearance: PRESENT: no acute distress, well-developed, well-nourished Head exam: PRESENT: atraumatic, normocephalic Eye exam: PRESENT: conjunctiva pink, EOMI, PERRLA. ABSENT: scleral icterus Ear exam: PRESENT: normal external ear exam Mouth exam: PRESENT: moist, tongue midline Neck exam: PRESENT: full ROM. ABSENT: carotid bruit, JVD, lymphadenopathy, thyromegaly Respiratory exam: PRESENT: clear to auscultation john Cardiovascular exam: PRESENT: RRR. ABSENT: diastolic murmur, rubs, systolic murmur Pulses: PRESENT: normal dorsalis pedis pul, +2 pedal pulses bilateral Vascular exam: PRESENT: normal capillary refill GI/Abdominal exam: PRESENT: normal bowel sounds, tenderness Rectal exam: PRESENT: deferred Neurological exam: PRESENT: alert, awake, oriented to person, oriented to place , oriented to time, oriented to situation, CN II-XII grossly intact. ABSENT: motor sensory deficit Psychiatric exam: PRESENT: appropriate affect, normal mood. ABSENT: homicidal ideation, suicidal ideation Skin exam: PRESENT: dry, intact, warm. ABSENT: cyanosis, rash Results Laboratory Results: 11/13/16 18:00 11/14/16 10:05 11/14/16 10:05 Sodium 141.2 Potassium 6.0 H* Chloride 101 Carbon Dioxide 27 Anion Gap 13 BUN 54 H Creatinine 8.42 H Est GFR ( Amer) 8 L Est GFR (Non-Af Amer) 6 L Glucose 81 Calcium 8.7 Total Bilirubin 0.8 AST 44 ALT 39 Alkaline Phosphatase 56 Total Protein 7.2 Albumin 3.8 Impressions: Abdomen Ultrasound 11/13/16 05:14 IMPRESSION: Cholelithiasis. Nonspecific small pericholecystic fluid and moderate gallbladder wall thickening. Negative sonographic Steinberg's test. Consider laboratory correlation. Otherwise unremarkable abdominal sonogram. Chest X-Ray 11/13/16 05:14 IMPRESSION: No acute cardiopulmonary findings. Moderate cardiac enlargement. Assessment & Plan - Diagnosis (1) Acute calculous cholecystitis Is this a current diagnosis for this admission?: YesPlan: Will waiting for the hemodialysis and consult the cardiology of the body of cardiac clearance I think patient should be ready by tomorrow for the surgery (2) Diabetes mellitus Qualifiers: Diabetes mellitus type: type 2 Diabetes mellitus complication status: with neurologic complications Diabetes mellitus complication detail: with polyneuropathy Diabetes mellitus assisted insulin use: with assisted use Qualified Code(s): E11.42 - Type 2 diabetes mellitus with diabetic polyneuropathy; Z79.4 - custodial (current) use of insulin Is this a current diagnosis for this admission?: YesPlan: Continues to current medications (3) End stage renal disease Is this a current diagnosis for this admission?: YesPlan: Follow with the nephrology (4) Hyperkalemia Is this a current diagnosis for this admission?: YesPlan: Scheduled for the hemodialysis today - Time Time Spent with patient: 15-24 minutes Medications reviewed and adjusted accordingly: Yes Anticipated discharge: Home Within: Other - Inpatient Certification Medical Necessity: Need Close Monitoring Due to Risk of Patient Decompensation Post Hospital Care: D/C Jewel Waxer Documentation - Plan Summary Plan Summary: Discussed with the patient in taking care of the nurse for the scheduled for the dialysis today and a preop cardiac clearance by the cardiology
[2016-11-15 09:19] LABS: HEMATOCRIT 27.3 % (37.9-51.0); HEMOGLOBIN 8.8 g/dL (13.5-17.0); HGB HCT DIFFERENCE -0.9; MEAN CORPUSCULAR HEMOGLOBIN 31.9 pg (27.0-33.4); MEAN CORPUSCULAR HGB CONC 32.4 g/dL (32.0-36.0); MEAN CORPUSCULAR VOLUME 99 fl (80-97); RED BLOOD COUNT 2.77 10^6/uL (4.35-5.55); RED CELL DISTRIBUTION WIDTH 25.5 % (11.5-14.0); WHITE BLOOD COUNT 4.1 10^3/uL (4.0-10.5)
[2016-11-15 09:24] LABS: ANION GAP 16 (5-19); BLOOD UREA NITROGEN 67 mg/dL (7-20); CALCIUM 8.7 mg/dL (8.4-10.2); CARBON DIOXIDE 26 mmol/L (22-30); CHLORIDE 102 mmol/L (98-107); CREATININE RESULT 9.59 mg/dL (0.52-1.25); GLUCOSE 103 mg/dL (75-110); POTASSIUM 5.6 mmol/L (3.6-5.0); SODIUM 144.1 mmol/L (137-145)
[2016-11-15 09:49] LABS: BASOPHILS % (MANUAL) 0 % (0-2); EOSINOPHILS % (MANUAL) 21 % (0-6); LYMPHOCYTES % (MANUAL) 15 % (13-45); NUCLEATED RED BLOOD CELLS 1 /100 WBC (0); TOTAL CELLS COUNTED 100
[2016-11-15 09:50] LABS: ANISOCYTOSIS 3+; HYPOCHROMASIA 1+; OVALOCYTES 1+; POIKILOCYTOSIS 1+; POLYCHROMASIA SLIGHT; ROULEAUX 1+
--- NOTE | 2016-11-15 09:51 | EKG REPORT ---
SEVERITY:- ABNORMAL ECG - SINUS RHYTHM FIRST DEGREE AV BLOCK RIGHT BUNDLE BRANCH BLOCK : Confirmed by: Rachid Eugene 15-Nov-2016 09:50:23
[2016-11-15] MEDS ORDERED: EPOETIN ALFA 10,000 UNIT in SYRINGE, DISPOSABLE, 1 EACH IV ONE (11:00)
[2016-11-15] MEDS: SUCRALFATE SUSP 1 GM/10 ML UDCUP PO SCH ×4 (11:29→21:27)
[2016-11-15] MEDS: CALCIUM ACETATE 667 MG CAPSULE PO SCH ×3 (11:29→17:58)
[2016-11-15] MEDS: CARVEDILOL 3.125 MG TABLET PO SCH ×2 (11:29→17:56)
[2016-11-15] MEDS: ASPIRIN 81 MG TABLET, ENT COATED PO SCH (12:38)
[2016-11-15] MEDS: AMLODIPINE BESYLATE 5 MG TABLET PO SCH (12:39)
--- NOTE | 2016-11-15 12:50 | PDOC CONSULTATION ---
Consultation Consult Date: 11/15/16 Attending physician:: FEI BAEZ Consult reason:: Encounter for preprocedural cardiovascular examination History of Present Illness Admission Date/PCP: 11/13/16 12:19 FEI BAEZ MD Patient complains of: abdominal discomfort History of Present Illness: CHAPITO LESLIE is a 61 year old male, he has end-stage kidney disease on maintenance hemodialysis, about 5 days ago he came to the emergency room for evaluation of chest pain, at that time he was transferred to the [facility], he was evaluated, had a Cardiolite Lexiscan stress test according to patient and it was negative. He presented again to the emergency room with epigastric pain, he was evaluated in the emergency room, ultrasound of the abdomen was done he demonstrated gallstones. Consultation was requested from surgery but because patient have multiple comorbid conditions , I was asked to evaluate patient and for cardiac clearance. Past Medical History Cardiac Medical History: Reports: Congestive Heart Failure, Coronary Artery Disease Endocrine Medical History: Reports: Diabetes Mellitus Type 2 Renal/ Medical History: Reports: End Stage Renal Disease GI Medical History: Reports: Gastroesophageal Reflux Disease Musculoskeltal Medical History: Denies: Arthritis Hematology: Reports: Anemia Past Surgical History Past Surgical History: Reports: Orthopedic Surgery, Vascular Surgery Social History Information Source: Patient Smoking Status: Former Smoker Frequency of Alcohol Use: None Hx Recreational Drug Use: No Hx Prescription Drug Abuse: No - Advance Directive Resuscitation Status: Full Code Family History Family History: Reviewed & Not Pertinent Parental Family History Reviewed: Yes Children Family History Reviewed: Yes Sibling(s) Family History Reviewed.: Yes - Negative for premature coronary artery disease or sudden cardiac in the family amongst first degree relatives. Medication/Allergy Home Medications: Aspirin [Aspirin EC] 81 mg PO DAILY 11/13/16 Calcium Acetate [Phoslo 667 mg Capsule] 1,334 mg PO MEALS 11/13/16 Carvedilol [Coreg 3.125 mg Tablet] 3.125 mg PO BIDACBS 11/13/16 Diclofenac Sodium [Voltaren] 2 gm TP QID 11/13/16 Insulin Glargine,Hum.rec.anlog [Lantus Solostar] 5 unit SQ QHS 11/13/16 Isosorbide Mononitrate [Isosorbide Mononitrate ER] 120 mg PO ACSUPPER 11/13/16 Nitroglycerin [Nitrostat 0.4 mg (1/150 Gr) Tabs 25/Bottle] 1 tab SL Q5MP PRN 03/22 Omeprazole 20 mg PO Q6AM 11/13/16 Oxymorphone HCl [Opana] 10 mg PO Q8HP PRN 11/13/16 Sucralfate [Carafate Susp 1 Gm/10 Ml Udcup] 1 gm PO QID 11/13/16 Tramadol HCl [Ultram 50 mg Tablet] 50 mg PO BIDP PRN 11/13/16 Amlodipine Besylate [Norvasc 5 mg Tablet] 5 mg PO Q12 #60 tablet 11/18/16 Allergies/Adverse Reactions: vancomycin [Vancomycin] Adverse Reaction (Unknown, Verified 11/06/16 02:08) molina syndrome Review of Systems Review of Systems: Please see history of present illness and past medical history as wall. Constitutional: No fever or chills reported. Head : No recent chronic headaches, recent head injury. Eyes: No recent eye pain, diplopia, redness, discharge, acute visual changes. Ears: No recent chronic ear pain, acute hearing loss, ear discharge. Oral cavity: No recent ulcerations, bleeding, oral cavity discomfort. Neck: No recent acute neck pain reported. Hematologic: No recent easy bruising or bleeding or hematologic malignancy reported. Lymphatic: No recent lymphatic malignancy, chronic lymphadenopathy reported yet Cardiovascular system review: See history of present illness. No prior history of myocardial infarction or CHF but patient Respiratory system review: No recent chronic cough, hemoptysis, blood clots in the lungs reported. Mild Shortness of breath on exertion Gastrointestinal system review: Negative for any recent acute or chronic abdominal pain, hematemesis, melena, recent change in bowel habits. Genitourinary system review: No recent acute or chronic hematuria, flank pain, UTI etc. reported. End-stage renal disease on dialysis. Skin system review: Negative for any recent abnormal bruising, no rash, no pruritus reported. Neurologic: No prior history of strokes, mini strokes, seizure disorder. Psychologic: No history of major psychosis or major depression reported. Musculoskeletal: Minor aches and pains reported. No acute joint swelling reported. Endocrine: No recent polyuria, polydipsia, recent heat or cold intolerance. Physical Exam Vital Signs: Temp Pulse Resp BP Pulse Ox 98.0 F 54 L 18 171/61 H 97 11/15/16 07:34 11/15/16 07:34 11/15/16 07:34 11/15/16 07:34 11/15/16 07:34 Intake & Output 11/14/16 11/15/16 11/16/16 06:59 06:59 06:59 Intake Total 240 655 Output Total 74 0 Balance 166 655 Exam: GENERAL: well-nourished and in no acute distress. Alert and oriented x3 HEAD: Atraumatic, normocephalic. EYES: Pupils equal round and reactive to light, extraocular movements intact, sclera anicteric, conjunctiva are normal. ENT: TMs normal, nares patent, oropharynx clear without exudates. Moist mucous membranes. No oral ulcerations or bleeding gums noted NECK: supple without lymphadenopathy. Trachea is central. No cervical or axillary lymphadenopathy noted. Carotids are 2+, JVD WNL LUNGS: Respiration seems nonlabored, no significant accessory muscle action noted. Breath sounds clear to auscultation bilaterally and equal noted. No wheezes rales or rhonchi noted. No significant dullness noted on percussion. CHEST: Palpation of the chest wall shows no significant chest wall tenderness. No other significant abnormalities noted. HEART: [place] CONSERVATION EDUCATOR, No PSH, 1/6 JORDAN aortic area, 1/6 gomez systolic murmur mitral area, no rubs, no gallops. ABDOMEN: Soft, no significant tenderness appreciated, normoactive bowel sounds. No guarding, no rebound. No rigidity noted . No masses appreciated. EXTREMITIES: Pedal pulses are 1-2+, no calf tenderness noted. No clubbing or cyanosis.trace to 1+ pedal edema noted NEUROLOGICAL: Focused neurological exam showed no significant neurologic deficit. Normal speech, no focal weakness appreciated. PSYCH: Normal mood, normal affect. Judgment and insight within normal limits. SKIN: No significant ecchymosis, rash, ulcerations or signs of pruritus noted. MUSCULOSKELETAL EXAM: No significant joint swelling noted. Results Laboratory Results: 11/15/16 08:15 11/15/16 08:15 11/15/16 11/15/16 08:15 08:15 WBC 4.1 RBC 2.77 L Hgb 8.8 L Hct 27.3 L MCV 99 H MCH 31.9 MCHC 32.4 RDW 25.5 H Plt Count 167 Seg Neutrophils % Not Reportable Lymphocytes % Not Reportable Monocytes % Not Reportable Eosinophils % Not Reportable Basophils % Not Reportable Absolute Neutrophils Not Reportable Absolute Lymphocytes Not Reportable Absolute Monocytes Not Reportable Absolute Eosinophils Not Reportable Absolute Basophils Not Reportable Sodium 144.1 Potassium 5.6 H Chloride 102 Carbon Dioxide 26 Anion Gap 16 BUN 67 H Creatinine 9.59 H Est GFR ( Amer) 7 L Est GFR (Non-Af Amer) 6 L Glucose 103 Calcium 8.7 11/13/16 14:45 Nasophary (Mrsa Only) MRSA Surveillance Culture - Final NO MRSA RECOVERED EKG Comments: Sinus rhythm, left axis deviation, right bundle branch block pattern and first- degree AV block Impressions: Abdomen Ultrasound 11/13/16 05:14 IMPRESSION: Cholelithiasis. Nonspecific small pericholecystic fluid and moderate gallbladder wall thickening. Negative sonographic Steinberg's test. Consider laboratory correlation. Otherwise unremarkable abdominal sonogram. Chest X-Ray 11/13/16 05:14 IMPRESSION: No acute cardiopulmonary findings. Moderate cardiac enlargement. Assessment & Plan - Diagnosis (1) Preoperative cardiovascular examination Is this a current diagnosis for this admission?: Yes (2) Diabetes mellitus Qualifiers: Diabetes mellitus type: type 2 Diabetes mellitus complication status: with neurologic complications Diabetes mellitus complication detail: with polyneuropathy Diabetes mellitus senior living insulin use: with superintendent terminal use Qualified Code(s): E11.42 - Type 2 diabetes mellitus with diabetic polyneuropathy; Z79.4 - terminal system operator (current) use of insulin Is this a current diagnosis for this admission?: Yes (3) End stage renal disease Is this a current diagnosis for this admission?: Yes (4) CKD (chronic kidney disease) stage V requiring chronic dialysis Is this a current diagnosis for this admission?: Yes (5) Nonsustained ventricular tachycardia Is this a current diagnosis for this admission?: Yes (6) Hyperkalemia Is this a current diagnosis for this admission?: Yes - Notes Notes: Preop cardiovascular examination: Patient had recent cardiovascular evaluation at [facility]. Patient has a history of nonsustained ventricular tachycardia and also had bifascicular/trifascicular block. Patient also has end-stage renal disease and diabetes. Patient considered higher than average risk but not in the prohibitive range. Would recommend close cardiology /internal medicine monitoring for any heart block or precipitation of CHF. History of nonsustained ventricular tachycardia: Exact recommendation from [facility] not available. Continue close cardiology monitoring. Continue COREG End-stage renal disease: Continue timely dialysis. Hyperkalemia: Continue with dialysis therapy. Monitor K levels. Diabetes: Recommend good control of blood sugar. However should avoid any hypoglycemia. Patient being expertly managed by primary care MEdgar Hypertension: Reasonably well controlled. Blood pressure goal in this patient is 135/85 or less. This was discussed with the patient. Currently blood pressure under reasonable control. Better medication for this patient are RIZWAN inhibitor/ARB/beta chang etc. discussed side effects of uncontrolled hypertension and also severe hypotension. ACEI/ARB may become contraindicated if K remains high. Discussed with Dr. Baez. Awaiting records from [facility] as well. Will F/U closely. - Time Time Spent: 50 to 70 Minutes - CODE STATUS was discussed, patient remains full code. Surrogate decision-maker unchanged. Multiple medical problems were addressed. More than 50% of the time spent coordinating care, discussing management plans with involved caregivers. Management plans discussed with involved personnels. Medical decision making was of moderate to high complexity , patient's has multiple comorbidities. Medications reviewed and adjusted accordingly: Yes
[2016-11-15] MEDS: MORPHINE SULFATE 10 MG/ML INJ IV PRN (14:05)
--- NOTE | 2016-11-15 17:42 | PDOC PROGRESS REPORT ---
Subjective Progress Note for:: 11/15/16 Subjective:: Patient had dialysis, walking in the halls, no complaints. Physical Exam Vital Signs: Temp Pulse Resp BP Pulse Ox 98.2 F 58 L 16 179/61 H 100 11/15/16 15:15 11/15/16 15:15 11/15/16 15:15 11/15/16 15:15 11/15/16 15:15 Intake & Output 11/14/16 11/15/16 11/16/16 06:59 06:59 06:59 Intake Total 240 655 Output Total 74 0 1100 Balance 166 655 -1100 General appearance: PRESENT: no acute distress - Stimulator. Cellular sugar Donley is again the only area he GI/Abdominal exam: PRESENT: other - She returns the abdomen is soft benign no peritoneal signs no rigidity no organomegaly. There is some bruising in the abdominal wall Results Laboratory Results: 11/15/16 08:15 11/15/16 08:15 11/15/16 11/15/16 08:15 08:15 WBC 4.1 RBC 2.77 L Hgb 8.8 L Hct 27.3 L MCV 99 H MCH 31.9 MCHC 32.4 RDW 25.5 H Plt Count 167 Seg Neutrophils % Not Reportable Lymphocytes % Not Reportable Monocytes % Not Reportable Eosinophils % Not Reportable Basophils % Not Reportable Absolute Neutrophils Not Reportable Absolute Lymphocytes Not Reportable Absolute Monocytes Not Reportable Absolute Eosinophils Not Reportable Absolute Basophils Not Reportable Sodium 144.1 Potassium 5.6 H Chloride 102 Carbon Dioxide 26 Anion Gap 16 BUN 67 H Creatinine 9.59 H Est GFR ( Amer) 7 L Est GFR (Non-Af Amer) 6 L Glucose 103 Calcium 8.7 11/13/16 14:45 Nasophary (Mrsa Only) MRSA Surveillance Culture - Final NO MRSA RECOVERED Impressions: Abdomen Ultrasound 11/13/16 05:14 IMPRESSION: Cholelithiasis. Nonspecific small pericholecystic fluid and moderate gallbladder wall thickening. Negative sonographic Steinberg's test. Consider laboratory correlation. Otherwise unremarkable abdominal sonogram. Chest X-Ray 11/13/16 05:14 IMPRESSION: No acute cardiopulmonary findings. Moderate cardiac enlargement. Assessment & Plan - Diagnosis (1) Acute calculous cholecystitis Is this a current diagnosis for this admission?: YesPlan: 1. Patient's symptoms remain controlled. Pointing including 1. 2. We will set him up for laparoscopic possible open cholecystectomy in the morning, Dr. Jett. 3. Will repeat potassium level in the morning
[2016-11-15] MEDS: ISOSORBIDE MONONITRATE 60 MG TAB.ER.24H PO SCH (17:58)
--- NOTE | 2016-11-15 20:17 | PDOC CONSULTATION ---
Consultation Consult Date: 11/15/16 Attending physician:: FEI ZULETA Consult reason:: I was asked by Dr. Zuleta to see this patient to supervise dialysis while in the hospital. History of Present Illness Admission Date/PCP: 11/13/16 12:19 FEI ZULETA MD History of Present Illness: Patient is a pleasant 60-year-old French gentleman known to me with history of end-stage renal disease on maintenance hemodialysis Wednesdays and Fridays secondary to diabetic nephropathy, diabetes mellitus type 2, diastolic cardiomyopathy, who was admitted last Tuesday because of acute cholecystitis with cholelithiasis. Patient initially presented in the emergency room on November 08, for chest pains and shortness of shortness of breath. Patient did have a run of V. tach and somewhat elevated troponin so he was transferred to [facility] for further cardiac evaluation. According to the patient he had a stress test done which she was told was good. Uncertain if echocardiogram was also done. Patient said he was found to have acute cholelithiasis at [facility] and he had some kind of imaging study. However no procedure was planned for the cholelithiasis and patient was subsequently discharged on November 11. Patient went home but the next day Tuesday he started to have epigastric pain with radiation to the left and mildly to the right upper quadrant and also radiates to the back associated with nausea but no vomiting. He said he feels cold but unknown if he has fever. Due to persistence of symptoms he presented to the emergency room on Tuesday. Patient had initial workup including abdominal ultrasound which confirmed the presence of cholelithiasis and findings consistent with acute cholecystitis. Patient was evaluated by the by surgery and recommendation was to have cholecystectomy. Patient was then admitted last Tuesday. He was supposed to have cholecystectomy on Tuesday but he had elevated potassium at 6.0. So surgery was postponed. In terms of the patient's hemodialysis since last dialysis was done at [facility] last Tuesday. This morning at around 8:20 AM I saw the patient on dialysis. He was tolerating dialysis well and it seems to be fairly comfortable. At that time he has only mild epigastric pain. He said the pain comes and goes in intensity fluctuates. Was hemodynamically stable during dialysis except for elevated blood pressure. Otherwise tolerated dialysis without any problems no any other complaints. Past Medical History Cardiac Medical History: Reports: CHF-Diastolic, Coronary Artery Disease, Hypertension-primary EENT Medical History: Reports: Cataracts, Other - Glaucoma Endocrine Medical History: Reports: Diabetes Mellitus Type 2 Complications of Diabetes: Reports: Nephropathy Renal/ Medical History: Reports: End Stage Renal Disease GI Medical History: Reports: Gastroesophageal Reflux Disease Musculoskeltal Medical History: Denies: Arthritis Psychiatric Medical History: Reports: Depression, General Anxiety Disorder Infectious Medical History: Reports: Hepatitis C Past Surgical History Past Surgical History: Reports: Dialysis Access Surgery AVF, Orthopedic Surgery - Right big toe amputation in 2014, left third and fourth toe amputation, Other - Neck surgery in 2013 Social History Information Source: Patient Lives with: Family Smoking Status: Former Smoker Frequency of Alcohol Use: None Hx Recreational Drug Use: No Hx Prescription Drug Abuse: No - Advance Directive Resuscitation Status: Full Code Family History Family History: Reviewed & Not Pertinent Parental Family History Reviewed: Yes Children Family History Reviewed: Yes Sibling(s) Family History Reviewed.: Yes Medication/Allergy Home Medications: Amlodipine Besylate [Norvasc 5 mg Tablet] 5 mg PO DAILY 11/13/16 Aspirin [Aspirin EC] 81 mg PO DAILY 11/13/16 Calcium Acetate [Phoslo 667 Mg Capsule] 1,334 mg PO MEALS 11/13/16 Carvedilol [Coreg 3.125 mg Tablet] 3.125 mg PO BIDACBS 11/13/16 Diclofenac Sodium [Voltaren] 2 gm TP QID 11/13/16 Insulin Glargine,Hum.rec.anlog [Lantus Solostar] 5 unit SQ QHS 11/13/16 Isosorbide Mononitrate [Isosorbide Mononitrate ER] 120 mg PO ACSUPPER 11/13/16 Nitroglycerin [Nitrostat 0.4 mg (1/150 Gr) Tabs 25/Bottle] 1 tab SL Q5MP PRN 03/22 Omeprazole 20 mg PO Q6AM 11/13/16 Oxymorphone HCl [Opana] 10 mg PO Q8HP PRN 11/13/16 Sucralfate [Carafate Susp 1 Gm/10 Ml Udcup] 1 gm PO QID 11/13/16 Tramadol HCl [Ultram 50 mg Tablet] 50 mg PO BIDP PRN 11/13/16 Allergies/Adverse Reactions: vancomycin [Vancomycin] Adverse Reaction (Unknown, Verified 11/06/16 02:08) molina syndrome Review of Systems All systems: reviewed and no additional remarkable complaints except as stated Review of Systems: Constitutional: ABSENT: chills, fatigue, fever(s), headache(s), weight gain, weight loss Eyes: ABSENT: visual disturbances Ears: ABSENT: hearing changes Cardiovascular: ABSENT: chest pain, dyspnea on exertion, edema, orthropnea, palpitations Respiratory: ABSENT: cough, dyspnea, hemoptysis Gastrointestinal: ABSENT: Constipation, diarrhea, hematemesis, hematochezia, vomiting; admits epigastric pain and nausea Genitourinary: ABSENT: dysuria, hematuria Musculoskeletal: ABSENT: joint swelling Integumentary: ABSENT: rash, wounds Neurological: ABSENT: abnormal gait, abnormal speech, confusion, dizziness, focal weakness, numbness, syncope Psychiatric: ABSENT: anxiety, depression Endocrine: ABSENT: cold intolerance, heat intolerance, polydipsia, polyuria Hematologic/Lymphatic: ABSENT: easy bleeding, easy bruising, lymphadenopathy Physical Exam Vital Signs: Temp Pulse Resp BP Pulse Ox 98.2 F 58 L 16 179/61 H 100 11/15/16 15:15 11/15/16 15:15 11/15/16 15:15 11/15/16 15:15 11/15/16 15:15 Intake & Output 11/14/16 11/15/16 11/16/16 06:59 06:59 06:59 Intake Total 918 260 4529 Output Total 74 0 1100 Balance 166 655 703 Results Laboratory Results: 11/15/16 08:15 11/15/16 08:15 11/15/16 11/15/16 08:15 08:15 WBC 4.1 RBC 2.77 L Hgb 8.8 L Hct 27.3 L MCV 99 H MCH 31.9 MCHC 32.4 RDW 25.5 H Plt Count 167 Seg Neutrophils % Not Reportable Lymphocytes % Not Reportable Monocytes % Not Reportable Eosinophils % Not Reportable Basophils % Not Reportable Absolute Neutrophils Not Reportable Absolute Lymphocytes Not Reportable Absolute Monocytes Not Reportable Absolute Eosinophils Not Reportable Absolute Basophils Not Reportable Sodium 144.1 Potassium 5.6 H Chloride 102 Carbon Dioxide 26 Anion Gap 16 BUN 67 H Creatinine 9.59 H Est GFR ( Amer) 7 L Est GFR (Non-Af Amer) 6 L Glucose 103 Calcium 8.7 11/13/16 14:45 Nasophary (Mrsa Only) MRSA Surveillance Culture - Final NO MRSA RECOVERED Impressions: Abdomen Ultrasound 11/13/16 05:14 IMPRESSION: Cholelithiasis. Nonspecific small pericholecystic fluid and moderate gallbladder wall thickening. Negative sonographic Steinberg's test. Consider laboratory correlation. Otherwise unremarkable abdominal sonogram. Chest X-Ray 11/13/16 05:14 IMPRESSION: No acute cardiopulmonary findings. Moderate cardiac enlargement. Assessment & Plan - Diagnosis (1) End stage renal disease Is this a current diagnosis for this admission?: YesPlan: This is due to diabetic nephropathy. We did dialysis today for 3 hours, using the patient's AV fistula, with one potassium bath for the first hour then to potassium that subsequently, blood flow rate of 450 mL per minute, dialysate flow rate of 600 mL per minute, ultrafiltration 1 L, no heparin and Procrit with 10,000 units during dialysis intravenously. Patient tolerated dialysis well. We will continue to supervise dialysis while here in the hospital. (2) Hyperkalemia Is this a current diagnosis for this admission?: YesPlan: Continue dialysis support and low potassium renal diet. (3) Hypertension Is this a current diagnosis for this admission?: YesPlan: Uncontrolled. I will increase his amlodipine to 10 mg p.o. daily. (4) Anemia in chronic kidney disease (CKD) Is this a current diagnosis for this admission?: YesPlan: Procrit on dialysis. (5) Acute calculous cholecystitis Is this a current diagnosis for this admission?: YesPlan: Patient plan for cholecystectomy laparoscopically tomorrow. (6) Diabetes mellitus Qualifiers: Diabetes mellitus type: type 2 Diabetes mellitus complication status: with neurologic complications Diabetes mellitus complication detail: with polyneuropathy Diabetes mellitus custodial insulin use: with custodial use Qualified Code(s): E11.42 - Type 2 diabetes mellitus with diabetic polyneuropathy; Z79.4 - skilled nursing (current) use of insulin Is this a current diagnosis for this admission?: Yes - Notes Notes: Thank you very much for this consultation. I will follow the patient with you. - Time Time Spent: 50 to 70 Minutes
[2016-11-15] MEDS: INSULIN GLARGINE,HUM.REC.ANLOG 300 UNIT/3 ML INSULN.PEN SUBCUT SCH (21:37)
[2016-11-16] MEDS: MORPHINE SULFATE 10 MG/ML INJ IV PRN ×2 (01:04→08:04)
[2016-11-16 05:01] LABS: HEMATOCRIT 26.4 % (37.9-51.0); HEMOGLOBIN 8.7 g/dL (13.5-17.0); HGB HCT DIFFERENCE -0.3; MEAN CORPUSCULAR HGB CONC 32.9 g/dL (32.0-36.0); MEAN CORPUSCULAR VOLUME 97 fl (80-97); RED BLOOD COUNT 2.73 10^6/uL (4.35-5.55); RED CELL DISTRIBUTION WIDTH 25.4 % (11.5-14.0); WHITE BLOOD COUNT 3.8 10^3/uL (4.0-10.5)
[2016-11-16 05:24] LABS: ALANINE AMINOTRANSFERASE 35 U/L (21-72); ALBUMIN 3.6 g/dL (3.5-5.0); ALKALINE PHOSPHATASE 56 U/L (38-126); ANION GAP 12 (5-19); ASPARTATE AMINO TRANSFERASE 33 U/L (17-59); BILIRUBIN,DIRECT 0.5 mg/dL (0.0-0.4); BILIRUBIN,TOTAL 0.7 mg/dL (0.2-1.3); CALCIUM 8.8 mg/dL (8.4-10.2); CARBON DIOXIDE 30 mmol/L (22-30); CHLORIDE 100 mmol/L (98-107); CREATININE RESULT 7.16 mg/dL (0.52-1.25); GLUCOSE 103 mg/dL (75-110); SODIUM 142.3 mmol/L (137-145)
[2016-11-16 05:32] LABS: POTASSIUM 4.7 mmol/L (3.6-5.0)
[2016-11-16 05:39] LABS: BLOOD UREA NITROGEN 46 mg/dL (7-20)
[2016-11-16 06:04] LABS: BAND NEUTROPHILS % (MANUAL) 1 % (3-5); BASOPHILS % (MANUAL) 0 % (0-2); EOSINOPHILS % (MANUAL) 18 % (0-6); LYMPHOCYTES % (MANUAL) 20 % (13-45); NUCLEATED RED BLOOD CELLS 1 /100 WBC (0); TOTAL CELLS COUNTED 100
[2016-11-16 06:06] LABS: ANISOCYTOSIS 4+; HYPOCHROMASIA SLIGHT; POLYCHROMASIA SLIGHT; TOXIC GRANULATION SLIGHT; TOXIC VACUOLATION PRESENT
[2016-11-16] MEDS: LANSOPRAZOLE 15 MG TAB.RAP.DR PO SCH (06:06)
[2016-11-16 06:07] LABS: OVALOCYTES SLIGHT; POIKILOCYTOSIS 1+; SCHISTOCYTES SLIGHT
[2016-11-16] MEDS: CARVEDILOL 3.125 MG TABLET PO SCH ×2 (08:05→17:16)
[2016-11-16] MEDS: CALCIUM ACETATE 667 MG CAPSULE PO SCH ×3 (08:06→17:13)
--- NOTE | 2016-11-16 08:20 | PDOC PROGRESS REPORT ---
Subjective Progress Note for:: 11/16/16 Subjective:: Patient is currently doing well this morning. Patient's denied any chest pain denied any shortness of the breath. Denied any abdominal pain no nausea no vomiting. Patient had hemodialysis done yesterday and patient's potassium is all stable. Patient seen by the cardiology and currently stable for the surgery with moderate risk Patient scheduled for the lap charlotte today Physical Exam Vital Signs: Temp Pulse Resp BP Pulse Ox 98.1 F 53 L 16 177/55 H 100 11/16/16 07:31 11/16/16 07:31 11/16/16 07:31 11/16/16 07:31 11/16/16 07:31 Intake & Output 11/15/16 11/16/16 11/17/16 06:59 06:59 06:59 Intake Total 655 2334 Output Total 0 1100 Balance 655 1234 General appearance: PRESENT: no acute distress, well-developed, well-nourished Head exam: PRESENT: atraumatic, normocephalic Eye exam: PRESENT: conjunctiva pink, EOMI, PERRLA. ABSENT: scleral icterus Ear exam: PRESENT: normal external ear exam Mouth exam: PRESENT: moist, tongue midline Neck exam: PRESENT: full ROM. ABSENT: carotid bruit, JVD, lymphadenopathy, thyromegaly Respiratory exam: PRESENT: clear to auscultation john Cardiovascular exam: PRESENT: RRR. ABSENT: diastolic murmur, rubs, systolic murmur Pulses: PRESENT: normal dorsalis pedis pul, +2 pedal pulses bilateral Vascular exam: PRESENT: normal capillary refill GI/Abdominal exam: PRESENT: normal bowel sounds, soft. ABSENT: distended, guarding, mass, organolmegaly, rebound, tenderness Rectal exam: PRESENT: deferred Neurological exam: PRESENT: alert, awake, oriented to person, oriented to place , oriented to time, oriented to situation, CN II-XII grossly intact. ABSENT: motor sensory deficit Psychiatric exam: PRESENT: appropriate affect, normal mood. ABSENT: homicidal ideation, suicidal ideation Skin exam: PRESENT: dry, intact, warm. ABSENT: cyanosis, rash Results Laboratory Results: 11/16/16 03:52 11/16/16 03:52 11/15/16 11/15/16 11/16/16 08:15 08:15 03:52 WBC 4.1 3.8 L RBC 2.77 L 2.73 L Hgb 8.8 L 8.7 L Hct 27.3 L 26.4 L MCV 99 H 97 MCH 31.9 32.0 MCHC 32.4 32.9 RDW 25.5 H 25.4 H Plt Count 167 142 L Seg Neutrophils % Not Reportable Not Reportable Lymphocytes % Not Reportable Not Reportable Monocytes % Not Reportable Not Reportable Eosinophils % Not Reportable Not Reportable Basophils % Not Reportable Not Reportable Absolute Neutrophils Not Reportable Not Reportable Absolute Lymphocytes Not Reportable Not Reportable Absolute Monocytes Not Reportable Not Reportable Absolute Eosinophils Not Reportable Not Reportable Absolute Basophils Not Reportable Not Reportable Sodium 144.1 Potassium 5.6 H Chloride 102 Carbon Dioxide 26 Anion Gap 16 BUN 67 H Creatinine 9.59 H Est GFR ( Amer) 7 L Est GFR (Non-Af Amer) 6 L Glucose 103 Calcium 8.7 Total Bilirubin AST ALT Alkaline Phosphatase Total Protein Albumin 11/16/16 03:52 WBC RBC Hgb Hct MCV MCH MCHC RDW Plt Count Seg Neutrophils % Lymphocytes % Monocytes % Eosinophils % Basophils % Absolute Neutrophils Absolute Lymphocytes Absolute Monocytes Absolute Eosinophils Absolute Basophils Sodium 142.3 Potassium 4.7 Chloride 100 Carbon Dioxide 30 Anion Gap 12 BUN 46 H D Creatinine 7.16 H Est GFR ( Amer) 9 L Est GFR (Non-Af Amer) 8 L Glucose 103 Calcium 8.8 Total Bilirubin 0.7 AST 33 ALT 35 Alkaline Phosphatase 56 Total Protein 7.0 Albumin 3.6 11/13/16 14:45 Nasophary (Mrsa Only) MRSA Surveillance Culture - Final NO MRSA RECOVERED Impressions: Abdomen Ultrasound 11/13/16 05:14 IMPRESSION: Cholelithiasis. Nonspecific small pericholecystic fluid and moderate gallbladder wall thickening. Negative sonographic Steinberg's test. Consider laboratory correlation. Otherwise unremarkable abdominal sonogram. Chest X-Ray 11/13/16 05:14 IMPRESSION: No acute cardiopulmonary findings. Moderate cardiac enlargement. Assessment & Plan - Diagnosis (1) Acute calculous cholecystitis Is this a current diagnosis for this admission?: YesPlan: Patient scheduled for the surgery today patient seen by cardiology and nephrology. Discussed with the patient and the in the room about the potential complication of the surgery. (2) Diabetes mellitus Qualifiers: Diabetes mellitus type: type 2 Diabetes mellitus complication status: with neurologic complications Diabetes mellitus complication detail: with polyneuropathy Diabetes mellitus long term care social worker insulin use: with long term care social worker use Qualified Code(s): E11.42 - Type 2 diabetes mellitus with diabetic polyneuropathy; Z79.4 - [facility] (current) use of insulin Is this a current diagnosis for this admission?: YesPlan: Continues to current medications (3) End stage renal disease Is this a current diagnosis for this admission?: YesPlan: Follow with the nephrology (4) Hyperkalemia Is this a current diagnosis for this admission?: YesPlan: Currently all resolved (5) Coronary artery disease Qualifiers: Coronary Disease-Associated Artery/Lesion type: unspecified vessel or lesion type Is this a current diagnosis for this admission?: YesPlan: Currently stable seen by cardiology - Time Time Spent with patient: 15-24 minutes Medications reviewed and adjusted accordingly: Yes Anticipated discharge: Home Within: Other - Inpatient Certification Medical Necessity: Need for Surgery Post Hospital Care: D/C Child Care Giver Documentation - Plan Summary Plan Summary: Discussed with the patient and the in the room about the all the test results and all the consult
[2016-11-16] MEDS ORDERED: BUPIVACAINE HCL 0.25 % INJ/PF (2.5 MG/1 ML) 30 ML VIAL ONE (09:38)
[2016-11-16] MEDS ORDERED: CIPROFLOXACIN 400 MG/D5W RTU 400 MG/200 ML RTUPB IV ONE (10:17)
[2016-11-16] MEDS: AMLODIPINE BESYLATE 5 MG TABLET PO SCH ×2 (10:40→23:15)
[2016-11-16] MEDS: ASPIRIN 81 MG TABLET, ENT COATED PO SCH (10:40)
[2016-11-16] MEDS: SUCRALFATE SUSP 1 GM/10 ML UDCUP PO SCH ×4 (10:40→23:15)
[2016-11-16] MEDS ORDERED: MIDAZOLAM 2 MG/2 ML INJ ONE (10:48)
[2016-11-16] MEDS ORDERED: FENTANYL CITRATE INJ/PF 250 MCG/5 ML AMPULE ONE (10:48)
[2016-11-16] MEDS ORDERED: PROPOFOL INJ 200 MG/20 ML VIAL IV ONE (10:49)
[2016-11-16] MEDS ORDERED: MORPHINE SULFATE 10 MG/ML INJ ONE (10:49)
[2016-11-16] MEDS ORDERED: ACETAMINOPHEN 100 ML IV ONE (10:49)
--- NOTE | 2016-11-16 11:04 | EKG REPORT ---
SEVERITY:- ABNORMAL ECG - SINUS RHYTHM MULTIPLE ATRIAL PREMATURE COMPLEXES FIRST DEGREE AV BLOCK RIGHT BUNDLE BRANCH BLOCK : Confirmed by: Rachid Eugene 16-Nov-2016 11:04:08
[2016-11-16] MEDS ORDERED: FENTANYL CITRATE INJ/PF 100 MCG/2 ML AMPUL IV PRN ×3 (11:49)
[2016-11-16] MEDS ORDERED: DIPHENHYDRAMINE HCL 50 MG/ML VIAL IV PRN (11:49)
[2016-11-16] MEDS ORDERED: MORPHINE SULFATE 10 MG/ML INJ IV PRN (11:49)
[2016-11-16] MEDS ORDERED: PROMETHAZINE HCL INJ 25 MG/1 ML VIAL IV PRN ×2 (11:49)
[2016-11-16] MEDS ORDERED: OXYCODONE-ACETAMINOPHEN 5-325 MG TABLET PO PRN ×2 (11:49)
[2016-11-16] MEDS ORDERED: MEPERIDINE HCL/PF INJ 25 MG/1 ML DISP.SYRIN IV PRN (11:49)
[2016-11-16] MEDS ORDERED: NORMAL SALINE 1000 ML 1,000 ML IV PRN (12:36)
[2016-11-16] MEDS ORDERED: LIDOCAINE 2% INJ-PF (20 MG/ML) 10 ML AMPUL ONE (13:55)
[2016-11-16] MEDS ORDERED: METOCLOPRAMIDE HCL INJ/PF 10 MG/2 ML SDV ONE (13:55)
[2016-11-16] MEDS ORDERED: ROCURONIUM BROMIDE INJ 50 MG/5 ML VIAL IV ONE (13:55)
[2016-11-16] MEDS ORDERED: ONDANSETRON HCL INJ/PF 4 MG/2 ML SDV ONE (13:55)
[2016-11-16] MEDS ORDERED: GLYCOPYRROLATE INJ 0.4 MG/2 ML VIAL ONE (13:55)
[2016-11-16] MEDS ORDERED: NEOSTIGMINE METHYLSULFATE 10 MG/10 ML VIAL ONE (13:55)
[2016-11-16] MEDS ORDERED: SUCCINYLCHOLINE CHLORIDE INJ 200 MG/10 ML VIAL ONE (13:55)
--- NOTE | 2016-11-16 14:03 | OPERATIVE REPORT E ---
Operative Report NAME: CHAPITO LESLIE : 1955 AGE: 61Y DATE OF SURGERY: 11/16/2016 ROOM: 530 PREOPERATIVE DIAGNOSIS: Chronic calculous cholecystitis. POSTOPERATIVE DIAGNOSES: 1. Chronic calculous cholecystitis. 2. Possible acute cholecystitis. ANESTHESIA: General. SURGEON: OMARI AGUILERA M.D. PROCEDURE: Laparoscopic cholecystectomy. INDICATION: This is a 61-year-old dialysis patient, who is complaining of right upper quadrant abdominal pains. He was noted to have gallstones. After cleared by Medicine and Cardiology, the patient now is going to have his gallbladder removed laparoscopically. DESCRIPTION OF PROCEDURE: After adequate general anesthesia, the abdomen was then prepped and draped in the usual sterile fashion. An infraumbilical elliptical incision was made and the fascia identified, grasped with Palma clamps and divided between the Palma clamps. A hemostat was then placed through the fascia and into the abdominal cavity and slightly dilated the area. Next, a Nita trocar was then inserted through the fascia into the abdominal cavity and CO2 insufflated through the trocar to a pressure of 15 mmHg. Next, three other trocars were placed, an 11 mm in the subxiphoid area and two 5 mm in the right upper quadrant. The trocars were placed under direct vision. Next, the gallbladder was subsequently grasped at the fundus. The wall was noted to be thickened and slightly distended. Another clamp placed in the infundibulum and the cystic duct was then dissected. There was some difficulty dissecting the cystic duct because of thickened wall and peritoneum, indicating likely the patient had chronic cholecystitis and the distended gallbladder may be from acute cholecystectomy. Cystic duct was then dissected and subsequently clipped without hemoclips. Cystic artery also identified and clipped with hemoclips and divided with the use of harmonic sandy. The gallbladder was then removed from the liver bed with the use of harmonic sheers. The gallbladder was then removed and placed in an Endobag and pulled out through the umbilical port. The trocars were put back and the liver bed inspected. No evidence of acute bleeding. There is a little oozing right at the area of the cystic duct that appears to have stopped after irrigating. An any rate, the small piece of Surgicel was placed at this area to aid in the hemostasis. The trocars were then all removed after making sure there was no bleeding at the trocar sites. Next, the Nita fascial defect at the infraumbilical area was then closed with a ijjkzz-[id number] suture using 0-Vicryl. All the skin incisions were then closed with running subcuticular 4-0 Vicryl undyed. Long-acting local anesthesia with Marcaine was then injected around the trocar sites and the area of the fascia. The incision sites were then dressed with skin glue. The patient tolerated the procedure well and was brought to the recovery room in a satisfactory condition. DICTATING PHYSICIAN: OMARI AGUILERA M.D. [id number] PHY#: [id number] ID: [id number] JOB#: [id number] ACCT: [id number] cc:OMARI AGUILERA M.D. >
[2016-11-16] MEDS: ISOSORBIDE MONONITRATE 60 MG TAB.ER.24H PO SCH (17:14)
[2016-11-16] MEDS: CIPROFLOXACIN 400 MG/D5W RTU 400 MG/200 ML RTUPB IV SCH (17:15)
--- NOTE | 2016-11-16 20:19 | PDOC PROGRESS REPORT ---
Subjective Progress Note for:: 11/16/16 Subjective:: Patient seems to be doing better. Patient was seen in the morning. He is waiting to go for surgery. Pt is denying any chest arm or neck discomfort. Patient denying any PND, orthopnea. Patient denied any sustained palpitations, dizziness, syncope, near syncope. Patient denying any fever chills. Patient denying any other significant discomfort. Patient is maintaining sinus rhythm. Mild sinus bradycardia is noted. Review of systems: Rest review of systems negative. Medications: Medications have been reviewed. Physical Exam Vital Signs: Temp Pulse Resp BP Pulse Ox 97.5 F 48 L 16 170/57 H 100 11/16/16 19:16 11/16/16 19:16 11/16/16 19:16 11/16/16 19:16 11/16/16 19:16 Intake & Output 11/15/16 11/16/16 11/17/16 06:59 06:59 06:59 Intake Total 655 2334 1730 Output Total 0 1100 860 Balance 655 1234 870 Exam: GENERAL: well-nourished and in no acute distress. Alert and oriented x3 HEAD: Atraumatic, normocephalic. EYES: Pupils equal round and reactive to light, extraocular movements intact, sclera anicteric, conjunctiva are normal. ENT: TMs normal, nares patent, oropharynx clear without exudates. Moist mucous membranes. No oral ulcerations or bleeding gums noted NECK: supple without lymphadenopathy. Trachea is central. No cervical or axillary lymphadenopathy noted. Carotids are 2+, JVD WNL LUNGS: Respiration seems nonlabored, no significant accessory muscle action noted. Breath sounds clear to auscultation bilaterally and equal noted. No wheezes rales or rhonchi noted. No significant dullness noted on percussion. CHEST: Palpation of the chest wall shows no significant chest wall tenderness. No other significant abnormalities noted. 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 ABDOMEN: Soft, mild right upper quadrant tenderness appreciated, normoactive bowel sounds. No guarding, no rebound. No rigidity noted . No masses appreciated. EXTREMITIES: Pedal pulses are 1-2+, no calf tenderness noted. No clubbing or cyanosis.trace to 1+ pedal edema noted. Dialysis fistula noted left arm. NEUROLOGICAL: Focused neurological exam showed no significant neurologic deficit. Normal speech, no focal weakness appreciated. PSYCH: Normal mood, normal affect. Judgment and insight within normal limits. SKIN: No significant ecchymosis, rash, ulcerations or signs of pruritus noted. MUSCULOSKELETAL EXAM: No significant joint swelling noted. Results Laboratory Results: 11/16/16 03:52 11/16/16 03:52 11/16/16 11/16/16 03:52 03:52 WBC 3.8 L RBC 2.73 L Hgb 8.7 L Hct 26.4 L MCV 97 MCH 32.0 MCHC 32.9 RDW 25.4 H Plt Count 142 L Seg Neutrophils % Not Reportable Lymphocytes % Not Reportable Monocytes % Not Reportable Eosinophils % Not Reportable Basophils % Not Reportable Absolute Neutrophils Not Reportable Absolute Lymphocytes Not Reportable Absolute Monocytes Not Reportable Absolute Eosinophils Not Reportable Absolute Basophils Not Reportable Sodium 142.3 Potassium 4.7 Chloride 100 Carbon Dioxide 30 Anion Gap 12 BUN 46 H D Creatinine 7.16 H Est GFR ( Amer) 9 L Est GFR (Non-Af Amer) 8 L Glucose 103 Calcium 8.8 Total Bilirubin 0.7 AST 33 ALT 35 Alkaline Phosphatase 56 Total Protein 7.0 Albumin 3.6 EKG Comments: Sinus rhythm, frequent APCs and right bundle branch block pattern Impressions: Abdomen Ultrasound 11/13/16 05:14 IMPRESSION: Cholelithiasis. Nonspecific small pericholecystic fluid and moderate gallbladder wall thickening. Negative sonographic Steinberg's test. Consider laboratory correlation. Otherwise unremarkable abdominal sonogram. Chest X-Ray 11/13/16 05:14 IMPRESSION: No acute cardiopulmonary findings. Moderate cardiac enlargement. 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 Review recent cardiac reports from [facility]. Preop cardiovascular examination: Patient had recent cardiovascular evaluation at [facility]. Patient has a history of nonsustained ventricular tachycardia and also had bifascicular/trifascicular block. Patient also has end-stage renal disease and diabetes. Patient considered higher than average risk but not in the prohibitive range. Would recommend close cardiology /internal medicine monitoring for any heart block or precipitation of CHF. Patient's today are unchanged. History of nonsustained ventricular tachycardia: There has been no recurrence on monitoring for 24 hours. End-stage renal disease: Continue timely dialysis. Hyperkalemia: Continue with dialysis therapy. Potassium level today 4.7. Diabetes: Recommend good control of blood sugar. However should avoid any hypoglycemia. Patient being expertly managed by primary care M.D. Hypertension: Reasonably well controlled. Blood pressure goal in this patient is 135/85 or less. This was discussed with the patient. Currently blood pressure under reasonable control. Better medication for this patient are RIZWAN inhibitor/ARB/beta chang etc. discussed side effects of uncontrolled hypertension and also severe hypotension. We will follow patient closely postop. Recommend postop EKG. Addendum patient also seen postop. He was noted to be bradycardic. Have ordered an EKG. - Time Time with patient: 15-25 minutes - CODE STATUS was discussed, patient remains full code. Surrogate decision-maker patient's . Multiple medical problems were addressed. More than 50% of the time spent coordinating care, discussing management plans with involved caregivers. Management plans discussed with involved personnels. Medical decision making was of moderate to high complexity , patient's has multiple comorbidities. Medications reviewed and adjusted accordingly: Yes
[2016-11-16] MEDS ORDERED: HYDRALAZINE HCL INJ/PF 20 MG/1 ML SDV IV PRN (20:21)
--- NOTE | 2016-11-16 22:49 | EKG REPORT ---
SEVERITY:- ABNORMAL ECG - SINUS OR ECTOPIC ATRIAL RHYTHM FIRST DEGREE AV BLOCK RIGHT BUNDLE BRANCH BLOCK : Confirmed by: Rachid Eugene 16-Nov-2016 22:48:56
[2016-11-16] MEDS: INSULIN GLARGINE,HUM.REC.ANLOG 300 UNIT/3 ML INSULN.PEN SUBCUT SCH (23:15)
[2016-11-17] MEDS: OXYCODONE-ACETAMINOPHEN 5-325 MG TABLET PO PRN (02:04)
[2016-11-17] MEDS: MORPHINE SULFATE 10 MG/ML INJ IV PRN ×4 (04:07→21:20)
[2016-11-17] MEDS ORDERED: EPOETIN ALFA INJ 20000 UNIT/1 ML VIAL (RENAL) IV PRN (05:00)
[2016-11-17] MEDS: CIPROFLOXACIN 400 MG/D5W RTU 400 MG/200 ML RTUPB IV SCH (05:56)
[2016-11-17] MEDS: LANSOPRAZOLE 15 MG TAB.RAP.DR PO SCH (05:56)
[2016-11-17 06:58] LABS: ABSOLUTE BASOPHILS # (AUTO) 0.1 10^3/uL (0.0-0.2); ABSOLUTE EOSINOPHILS # (AUTO) 0.6 10^3/uL (0.0-0.6); ABSOLUTE LYMPHOCYTES (AUTO) 0.5 10^3/uL (0.5-4.7); ABSOLUTE MONOCYTES (AUTO) 0.6 10^3/uL (0.1-1.4); BASOPHILS % (AUTO) 1.1 % (0-2); EOSINOPHILS % (AUTO) 12.3 % (0-6); HEMOGLOBIN 8.5 g/dL (13.5-17.0); HGB HCT DIFFERENCE -0.5; MEAN CORPUSCULAR HGB CONC 32.8 g/dL (32.0-36.0); MEAN CORPUSCULAR VOLUME 98 fl (80-97); MONOCYTES % (AUTO) 12.9 % (3-13); RED BLOOD COUNT 2.66 10^6/uL (4.35-5.55); SEGMENTED NEUTROPHILS % (AUTO) 62.7 % (42-78); WHITE BLOOD COUNT 4.7 10^3/uL (4.0-10.5)
[2016-11-17 07:11] LABS: ANION GAP 14 (5-19); BLOOD UREA NITROGEN 54 mg/dL (7-20); CALCIUM 8.8 mg/dL (8.4-10.2); CARBON DIOXIDE 28 mmol/L (22-30); CHLORIDE 100 mmol/L (98-107); GLUCOSE 93 mg/dL (75-110); SODIUM 141.7 mmol/L (137-145)
[2016-11-17 07:49] LABS: ANISOCYTOSIS 3+; HYPOCHROMASIA 2+; OVALOCYTES 2+; POIKILOCYTOSIS 2+; ROULEAUX 1+; SCHISTOCYTES SLIGHT; TARGET CELLS SLIGHT
[2016-11-17] MEDS: CALCIUM ACETATE 667 MG CAPSULE PO SCH ×3 (08:29→16:06)
--- NOTE | 2016-11-17 08:49 | PDOC PROGRESS REPORT ---
Subjective Progress Note for:: 11/17/16 Subjective:: Patient is currently doing well patient underwent for the lap charlotte and denied any abdominal pain no nausea no vomiting. Patient is currently on a dialysis Physical Exam Vital Signs: Temp Pulse Resp BP Pulse Ox 99.1 F 58 L 20 151/57 H 91 L 11/17/16 03:59 11/17/16 03:59 11/17/16 03:59 11/17/16 03:59 11/17/16 03:59 Intake & Output 11/16/16 11/17/16 11/18/16 06:59 06:59 06:59 Intake Total 2334 2676 Output Total 1100 860 Balance 1234 1816 General appearance: PRESENT: no acute distress, well-developed, well-nourished Head exam: PRESENT: atraumatic, normocephalic Eye exam: PRESENT: conjunctiva pink, EOMI, PERRLA. ABSENT: scleral icterus Ear exam: PRESENT: normal external ear exam Mouth exam: PRESENT: moist, tongue midline Neck exam: PRESENT: full ROM. ABSENT: carotid bruit, JVD, lymphadenopathy, thyromegaly Respiratory exam: PRESENT: clear to auscultation john Cardiovascular exam: PRESENT: RRR. ABSENT: diastolic murmur, rubs, systolic murmur Pulses: PRESENT: normal dorsalis pedis pul, +2 pedal pulses bilateral Vascular exam: PRESENT: normal capillary refill GI/Abdominal exam: PRESENT: normal bowel sounds, soft Additonal comments: Surgical scar is intact Rectal exam: PRESENT: deferred Neurological exam: PRESENT: alert, awake, oriented to person, oriented to place , oriented to time, oriented to situation, CN II-XII grossly intact. ABSENT: motor sensory deficit Psychiatric exam: PRESENT: appropriate affect, normal mood. ABSENT: homicidal ideation, suicidal ideation Skin exam: PRESENT: dry, intact, warm. ABSENT: cyanosis, rash Results Laboratory Results: 11/17/16 06:31 11/17/16 06:31 11/17/16 11/17/16 06:31 06:31 WBC 4.7 RBC 2.66 L Hgb 8.5 L Hct 26.0 L MCV 98 H MCH 32.0 MCHC 32.8 RDW 26.0 H Plt Count 123 L Seg Neutrophils % 62.7 Lymphocytes % 11.0 L Monocytes % 12.9 Eosinophils % 12.3 H Basophils % 1.1 Absolute Neutrophils 3.0 Absolute Lymphocytes 0.5 Absolute Monocytes 0.6 Absolute Eosinophils 0.6 Absolute Basophils 0.1 Sodium 141.7 Potassium 5.0 Chloride 100 Carbon Dioxide 28 Anion Gap 14 BUN 54 H Creatinine 8.70 H Est GFR ( Amer) 8 L Est GFR (Non-Af Amer) 6 L Glucose 93 Calcium 8.8 Impressions: Abdomen Ultrasound 11/13/16 05:14 IMPRESSION: Cholelithiasis. Nonspecific small pericholecystic fluid and moderate gallbladder wall thickening. Negative sonographic Steinberg's test. Consider laboratory correlation. Otherwise unremarkable abdominal sonogram. Chest X-Ray 11/13/16 05:14 IMPRESSION: No acute cardiopulmonary findings. Moderate cardiac enlargement. 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: with custodial use Qualified Code(s): E11.42 - Type 2 diabetes mellitus with diabetic polyneuropathy; Z79.4 - [facility] (current) use of insulin Is this a current diagnosis for this admission?: YesPlan: Continues to current medications (3) End stage renal disease Is this a current diagnosis for this admission?: YesPlan: Follow with the nephrology (4) Hyperkalemia Is this a current diagnosis for this admission?: YesPlan: All resolved (5) Coronary artery disease Qualifiers: Coronary Disease-Associated Artery/Lesion type: unspecified vessel or lesion type Is this a current diagnosis for this admission?: YesPlan: Currently stable seen by cardiology - Time Time Spent with patient: 15-24 minutes Medications reviewed and adjusted accordingly: Yes Anticipated discharge: Home, Other Within: within 24 hours - Inpatient Certification Medical Necessity: Need Close Monitoring Due to Risk of Patient Decompensation Post Hospital 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
[2016-11-17] MEDS: AMLODIPINE BESYLATE 5 MG TABLET PO SCH ×2 (11:16→21:17)
[2016-11-17] MEDS: SUCRALFATE SUSP 1 GM/10 ML UDCUP PO SCH ×4 (11:16→21:17)
[2016-11-17] MEDS: ASPIRIN 81 MG TABLET, ENT COATED PO SCH (11:45)
--- NOTE | 2016-11-17 13:33 | PROGRESS NOTE E ---
Progress Note NAME: CHAPITO LESLIE : 1955 AGE: 61Y DATE: 11/17/2016 ROOM: 530 SUBJECTIVE: The patient states he had surgery yesterday for his gallbladder due to cholecystitis. The patient is doing much better. He says the pain is well controlled. He denies any chest pain or discomfort. He denies any orthopnea, PND or palpitations. There is no dizziness, syncope or near syncope. There is no TIA or CVA symptoms. There is no fever, chills or rigors. The patient is in sinus bradycardia with a heart rate of 59 beats per minute. REVIEW OF SYSTEMS: The rest of the review of systems are negative. MEDICATIONS: Have been reviewed. PHYSICAL EXAMINATION: The patient is well built and well nourished, in no acute distress. VITAL SIGNS: He is afebrile with a temperature of 98.2 degrees Fahrenheit. His O2 sats are 97% on room air. His respirations are 15 per minute. His heart rate is 59 beats per minute. Blood pressure is 177/67. Note: The patient was seen when he was having dialysis. GENERAL: The patient is well nourished and in no acute distress. He is alert and oriented x3. HEENT: Head is atraumatic and normocephalic. Eyes - Pupils are equal, round, regular, and reactive to light and accommodation. Extraocular movements are normal. Sclerae are without icterus. Conjunctivae are pink. ENT is negative. NECK: Supple without lymphadenopathy. Trachea is central. There is no cervical or axillary lymphadenopathy. Carotids are 2+. JVD is within normal limits. LUNGS: Respirations seem to be nonlabored. There are no significant axillary muscles of respiration noted. Breath sounds are clear to auscultation bilaterally and equal. There are no wheezes, rales or rhonchi. There is no significant dullness noted on percussion. CHEST: Palpation shows no chest wall tenderness. HEART: S1 and S2 is heard. There is no S3 gallop and there is no S4 gallop. There is a systolic murmur in the left sternal area and 1/6 systolic ejection murmur at the aortic area. There is no rub. There are no gallops. ABDOMEN: Soft. The dressing is dry. There is no hepatosplenomegaly. Bowel sounds are well heard. EXTREMITIES: Pedal pulses are mildly diminished. Femorals are slightly reduced. There are no femoral bruits. There is no calf tenderness noted. There is no clubbing or cyanosis. There is trace edema bilaterally. Dialysis fistula noted in left arm. NEUROLOGIC: The patient is conscious, awake, alert, and oriented x3 with no focal deficits. PSYCHIATRIC: The patient's judgement and insight are intact. His affect is within normal limits. SKIN: There is no ecchymosis, rash, ulcerations or signs of pruritus noted. MUSCULOSKELETAL: There is no significant joint pain or swelling noted. Of note, 30 minutes was spent on this patient with [id number] medical decision making in view of the patient's bradycardia. At present the patient's blood pressure is good. We will not treat the bradycardia for now. Continue antibiotics. Continue aspirin. DIAGNOSTICS: The patient's white count is 4700, hemoglobin is 8.5, hematocrit is 26, platelet count is 123,000. The patient's sodium is 141.7, potassium is 5, chloride is 100, CO2 is 28, the patient's BUN is 24, creatinine is 8.70, GFR is reduced at 6 mL/min, glucose is 93, and calcium is 8.8. IMPRESSION: 1. SINUS BRADYCARDIA, ASYMPTOMATIC WITH STABLE BLOOD PRESSURE. In fact, the blood pressure is slightly high. 2. DIABETES MELLITUS, TYPE 2, INSULIN DEPENDENT. Continue insulin. 3. END-STAGE RENAL DISEASE, ON DIALYSIS. 4. NONSUSTAINED VENTRICULAR TACHYCARDIA, NO RECURRENCE. 5. HYPERKALEMIA. 6. HYPERTENSION. We will watch the patient's blood pressure. It could be the cause of recent surgery due to surgical pain, although the patient states that his pain is well controlled. NOTE: Thirty minutes was spent with this patient with moderate complexity of decision making in view of the patient's bradycardia. Of note, the patient is status post cholecystectomy. THE PATIENT IS A FULL CODE. His surrogate healthcare decision maker is the patient's . The patient did not have an EKG today; we will get one tomorrow. We will follow with you. DICTATING PHYSICIAN: MAGUE LORA M.D. [id number] PHY#: [id number] ID: [id number] JOB#: [id number] ACCT: [id number] cc: >
--- NOTE | 2016-11-17 15:48 | PDOC PROGRESS REPORT ---
Subjective Progress Note for:: 11/17/16 Subjective:: The patient on dialysis this morning at around 8:45 AM. He did very well with his laparoscopic cholecystectomy yesterday. Today he was stable and tolerated dialysis very well. He said he was able to eat breakfast without any nausea or vomiting. He has some abdominal discomfort but not really describing it as pain. Aside from mildly elevated blood pressure, he does not have any other complaints. Physical Exam Vital Signs: Temp Pulse Resp BP Pulse Ox 98.5 F 57 L 18 167/56 H 97 11/17/16 07:25 11/17/16 07:25 11/17/16 07:25 11/17/16 07:25 11/17/16 07:25 Intake & Output 11/16/16 11/17/16 11/18/16 06:59 06:59 06:59 Intake Total 2334 2676 Output Total 2534 557 9349 Balance 1234 1816 -3100 Vital signs during dialysis and I saw him this morning, blood pressure 175/78, heart rate 55, blood flow rate 450 mL/min, and dialysate flow rate of 800 mL/ min. Exam: General appearance: PRESENT: no acute distress, cooperative, well-developed, well-nourished Head exam: PRESENT: atraumatic, normocephalic Eye exam: PRESENT: conjunctiva pink, PERRLA. ABSENT: scleral icterus Neck exam: ABSENT: JVD Respiratory exam: PRESENT: Normal breath sounds. Positive crackles in both bases. ABSENT: Rhonchi, unlabored, wheezes Cardiovascular exam: PRESENT: Regular rate rhythm -+S1, +S2. ABSENT: diastolic murmur, systolic murmur GI/Abdominal exam: PRESENT: normal bowel sounds, soft. ABSENT: guarding, mass, tenderness Extremities exam: ABSENT: No edema Neurological exam: PRESENT: alert, awake, oriented to person, place and time. Skin exam: PRESENT: dry, warm, Results Laboratory Results: 11/17/16 06:31 11/17/16 06:31 11/17/16 11/17/16 06:31 06:31 WBC 4.7 RBC 2.66 L Hgb 8.5 L Hct 26.0 L MCV 98 H MCH 32.0 MCHC 32.8 RDW 26.0 H Plt Count 123 L Seg Neutrophils % 62.7 Lymphocytes % 11.0 L Monocytes % 12.9 Eosinophils % 12.3 H Basophils % 1.1 Absolute Neutrophils 3.0 Absolute Lymphocytes 0.5 Absolute Monocytes 0.6 Absolute Eosinophils 0.6 Absolute Basophils 0.1 Sodium 141.7 Potassium 5.0 Chloride 100 Carbon Dioxide 28 Anion Gap 14 BUN 54 H Creatinine 8.70 H Est GFR ( Amer) 8 L Est GFR (Non-Af Amer) 6 L Glucose 93 Calcium 8.8 Impressions: Abdomen Ultrasound 11/13/16 05:14 IMPRESSION: Cholelithiasis. Nonspecific small pericholecystic fluid and moderate gallbladder wall thickening. Negative sonographic Steinberg's test. Consider laboratory correlation. Otherwise unremarkable abdominal sonogram. Chest X-Ray 11/13/16 05:14 IMPRESSION: No acute cardiopulmonary findings. Moderate cardiac enlargement. Assessment & Plan - Diagnosis (1) End stage renal disease Is this a current diagnosis for this admission?: YesPlan: We did dialysis today for 3 hours, using the patient's AV fistula, with 2 potassium bath, blood flow rate of 450 mL per minute, dialysate flow rate of 800 mL per minute, ultrafiltration at least 3 L as tolerated, no heparin and Procrit with 20,000 units during dialysis intravenously. Patient tolerated dialysis well without any problems. (2) Hyperkalemia Is this a current diagnosis for this admission?: YesPlan: Resolved with dialysis. (3) Hypertension Is this a current diagnosis for this admission?: YesPlan: Suboptimal postoperatively. Pain is a contributory factor. (4) Anemia in chronic kidney disease (CKD) Is this a current diagnosis for this admission?: YesPlan: Procrit given in dialysis. (5) Acute calculous cholecystitis Is this a current diagnosis for this admission?: YesPlan: Status post successful laparoscopic cholecystectomy yesterday. (6) Diabetes mellitus Qualifiers: Diabetes mellitus type: type 2 Diabetes mellitus complication status: with neurologic complications Diabetes mellitus complication detail: with polyneuropathy Diabetes mellitus terminal operations supervisor insulin use: with fci use Qualified Code(s): E11.42 - Type 2 diabetes mellitus with diabetic polyneuropathy; Z79.4 - terminal operations supervisor (current) use of insulin Is this a current diagnosis for this admission?: Yes - Notes Notes: From nephrology standpoint I think the patient can go home tomorrow if continues to be stable. If he gets discharged his next dialysis will be in his regular scheduled dialysis time at [facility] until Tuesday. - Time Time with patient: 15-25 minutes
[2016-11-17] MEDS: ISOSORBIDE MONONITRATE 60 MG TAB.ER.24H PO SCH (16:07)
[2016-11-17] MEDS: INSULIN GLARGINE,HUM.REC.ANLOG 300 UNIT/3 ML INSULN.PEN SUBCUT SCH (21:17)
[2016-11-18] MEDS: OXYCODONE-ACETAMINOPHEN 5-325 MG TABLET PO PRN ×2 (00:11→09:08)
[2016-11-18 04:21] LABS: ANION GAP 12 (5-19); CALCIUM 8.9 mg/dL (8.4-10.2); CARBON DIOXIDE 30 mmol/L (22-30); CHLORIDE 99 mmol/L (98-107); CREATININE RESULT 6.52 mg/dL (0.52-1.25); GLUCOSE 85 mg/dL (75-110); POTASSIUM 4.4 mmol/L (3.6-5.0); SODIUM 140.5 mmol/L (137-145)
[2016-11-18 04:33] LABS: BLOOD UREA NITROGEN 31 mg/dL (7-20)
[2016-11-18] MEDS: LANSOPRAZOLE 15 MG TAB.RAP.DR PO SCH (06:04)
[2016-11-18] MEDS: CALCIUM ACETATE 667 MG CAPSULE PO SCH (08:39)
[2016-11-18 08:58] VITALS: BP 136/51
--- NOTE | 2016-11-18 13:00 | PDOC DISCHARGE SUMMARY ---
General - Admit/Disc Date/PCP Admission Date/Primary Care Provider: 11/13/16 12:19 FEI ZULETA MD Discharge Date: 11/18/16 - Discharge Diagnosis (1) Acute calculous cholecystitis Is this a current diagnosis for this admission?: YesSummary: Status post lap charlotte and currently doing well (2) Diabetes mellitus Is this a current diagnosis for this admission?: YesSummary: Continues to current medications (3) End stage renal disease Is this a current diagnosis for this admission?: YesSummary: Follow with the nephrology for hemodialysis (4) Hyperkalemia Is this a current diagnosis for this admission?: YesSummary: All resolved (5) Coronary artery disease Is this a current diagnosis for this admission?: YesSummary: Follow up with the cardiology as outpatients (6) Hypertension Is this a current diagnosis for this admission?: YesSummary: Will increase the Norvasc 5 mg p.o. twice a day and stop the beta-chang due to the low heart rate and follow outpatients cardiology - Additional Information Resuscitation Status: Full Code Discharge Diet: Diabetic Discharge Activity: Activity As Tolerated Home Medications: Aspirin [Aspirin EC] 81 mg PO DAILY 11/13/16 Calcium Acetate [Phoslo 667 mg Capsule] 1,334 mg PO MEALS 11/13/16 Carvedilol [Coreg 3.125 mg Tablet] 3.125 mg PO BIDACBS 11/13/16 Diclofenac Sodium [Voltaren] 2 gm TP QID 11/13/16 Insulin Glargine,Hum.rec.anlog [Lantus Solostar] 5 unit SQ QHS 11/13/16 Isosorbide Mononitrate [Isosorbide Mononitrate ER] 120 mg PO ACSUPPER 11/13/16 Nitroglycerin [Nitrostat 0.4 mg (1/150 Gr) Tabs 25/Bottle] 1 tab SL Q5MP PRN 03/22 Omeprazole 20 mg PO Q6AM 11/13/16 Oxymorphone HCl [Opana] 10 mg PO Q8HP PRN 11/13/16 Sucralfate [Carafate Susp 1 Gm/10 Ml Udcup] 1 gm PO QID 11/13/16 Tramadol HCl [Ultram 50 mg Tablet] 50 mg PO BIDP PRN 11/13/16 Amlodipine Besylate [Norvasc 5 mg Tablet] 5 mg PO Q12 #60 tablet 11/18/16 History of Present Illness History of Present Illness: CHAPITO LESLIE is a 61 year old male This is a 61-year-old male with end-stage renal disease and coronary disease hypertensions and hyperlipidemia and recently diagnosed with the cholecystitis was admitting in the [facility] was discharged and still complained of abdominal pain and admitting in the hospital and surgery was consulted Hospital Course Hospital Course: There is a 61-year-old male significant medical problem including the end-stage renal disease on hemodialysis diabetes mellitus hypertension's and coronary artery disease recently admitting in the [facility] for the cholecystitis and patient was discharged without any surgery. Patients came to the emergency department because of the complaint of abdominal pain and at this time patient was admitting in the hospital and the surgery was consulted Patient's potassium was high patient underwent for the hemodialysis and the cardiology was consulted before the surgery Patient's beta-chang was stopped due to the low heart rate patient's otherwise remained stable Underwent for the lap charlotte Patient is clear from the surgery and nephrology and cardiology status post surgery Patient's p.o. intake is good patient's walk in the hallway without any problem Patient discharged home with the stable conditions Follow outpatients cardiology for further evaluation about the heart rate Follow hemodialysis as scheduled And follow-up surgery for postop Physical Exam Vital Signs: Temp Pulse Resp BP Pulse Ox 98.6 F 56 L 15 136/51 H 93 11/18/16 08:54 11/18/16 08:54 11/18/16 08:54 11/18/16 08:54 11/18/16 08:54 Intake & Output 11/17/16 11/18/16 11/19/16 06:59 06:59 06:59 Intake Total 2676 950 Output Total 860 3100 Balance 1816 -2150 Weight 89.2 kg General appearance: PRESENT: no acute distress, well-developed, well-nourished Head exam: PRESENT: atraumatic, normocephalic Eye exam: PRESENT: conjunctiva pink, EOMI, PERRLA. ABSENT: scleral icterus Ear exam: PRESENT: normal external ear exam Mouth exam: PRESENT: moist, tongue midline Neck exam: PRESENT: full ROM. ABSENT: carotid bruit, JVD, lymphadenopathy, thyromegaly Respiratory exam: PRESENT: clear to auscultation john Cardiovascular exam: PRESENT: RRR. ABSENT: diastolic murmur, rubs, systolic murmur Pulses: PRESENT: normal dorsalis pedis pul, +2 pedal pulses bilateral Vascular exam: PRESENT: normal capillary refill GI/Abdominal exam: PRESENT: normal bowel sounds, soft. ABSENT: distended, guarding, mass, organolmegaly, rebound, tenderness Rectal exam: PRESENT: deferred Neurological exam: PRESENT: alert, awake, oriented to person, oriented to place , oriented to time, oriented to situation, CN II-XII grossly intact. ABSENT: motor sensory deficit Psychiatric exam: PRESENT: appropriate affect, normal mood. ABSENT: homicidal ideation, suicidal ideation Skin exam: PRESENT: dry, intact, warm. ABSENT: cyanosis, rash Results Laboratory Results: 11/17/16 06:31 11/18/16 03:52 11/18/16 03:52 Sodium 140.5 Potassium 4.4 Chloride 99 Carbon Dioxide 30 Anion Gap 12 BUN 31 H D Creatinine 6.52 H Est GFR ( Amer) 10 L Est GFR (Non-Af Amer) 9 L Glucose 85 Calcium 8.9 Impressions: Abdomen Ultrasound 11/13/16 05:14 IMPRESSION: Cholelithiasis. Nonspecific small pericholecystic fluid and moderate gallbladder wall thickening. Negative sonographic Steinberg's test. Consider laboratory correlation. Otherwise unremarkable abdominal sonogram. Chest X-Ray 11/13/16 05:14 IMPRESSION: No acute cardiopulmonary findings. Moderate cardiac enlargement. Plan Time Spent: Greater than 30 Minutes - Patient is currently doing well patient's discharge home with the stable conditions. Discussed with the in the room. Following office in 1 week Follow with the cardiology and the surgery is scheduled for hemodialysis as per routine
== END 2016-11-18 10:09 | disposition home or self-care (01) | DRG 417 ==
LOC: ER 04:09 → UNDOADMIN 09:18 → EH 09:18 → 5 11:07
PROVIDERS: ADMIT Family Medicine; ATTEND Family Medicine
PROC: 5A1D60Z (ICD-10-PCS; 2016-11-15)
PROC: 0FT44ZZ Resection of Gallbladder, Percutaneous Endoscopic Approach (ICD-10-PCS; principal; 2016-11-16 10:30)
DX: K80.12 Calculus of gallbladder with acute and chronic cholecystitis without obstruction (principal); N18.6 End stage renal disease; I13.2 Hypertensive heart and chronic kidney disease with heart failure and with stage 5 chronic kidney disease, or end stage renal disease; I42.9 Cardiomyopathy, unspecified; I50.32 Chronic diastolic (congestive) heart failure; I47.2 Ventricular tachycardia; I45.3 Trifascicular block; E11.22 Type 2 diabetes mellitus with diabetic chronic kidney disease; E87.5 Hyperkalemia; I25.10 Atherosclerotic heart disease of native coronary artery without angina pectoris; E78.5 Hyperlipidemia, unspecified; K21.9 Gastro-esophageal reflux disease without esophagitis; F32.9 Major depressive disorder, single episode, unspecified; F41.1 Generalized anxiety disorder; B19.20 Unspecified viral hepatitis C without hepatic coma; E11.42 Type 2 diabetes mellitus with diabetic polyneuropathy; D63.1 Anemia in chronic kidney disease; I44.0 Atrioventricular block, first degree; I45.10 Unspecified right bundle-branch block; R00.1 Bradycardia, unspecified; Z89.411 Acquired absence of right great toe; Z89.421 Acquired absence of other right toe(s); Z87.891 Personal history of nicotine dependence; Z98.42 Cataract extraction status, left eye; Z98.41 Cataract extraction status, right eye; Z79.82 Long term (current) use of aspirin; Z79.4 Long term (current) use of insulin; Z79.899 Other long term (current) drug therapy; Z99.2 Dependence on renal dialysis; Z88.3 Allergy status to other anti-infective agents
CPT/HCPCS: 36415; 71020; 76705; 790; 80048; 80053; 80076; 82550; 82553; 82962; 83690; 83735; 84484; 85025; 85610; 87040; 87077; 87186; 88304; 93005; 93010; 96374; 96375; 99285; J0131; J0330; J0360; J0744; J1335; J1815; J2250; J2270; J2405; J2704; J2765; J3010; J3490; J7030; Q4081

== ENCOUNTER 2016-12-13 11:30 | Inpatient (IN) | payer MEDICARE ==
[2016-12-13 12:05] LABS: ABSOLUTE BASOPHILS # (AUTO) 0.1 10^3/uL (0.0-0.2); ABSOLUTE EOSINOPHILS # (AUTO) 0.6 10^3/uL (0.0-0.6); ABSOLUTE LYMPHOCYTES (AUTO) 0.6 10^3/uL (0.5-4.7); ABSOLUTE MONOCYTES (AUTO) 0.7 10^3/uL (0.1-1.4); BASOPHILS % (AUTO) 1.4 % (0-2); EOSINOPHILS % (AUTO) 9.5 % (0-6); HEMATOCRIT 27.1 % (37.9-51.0); HEMOGLOBIN 8.8 g/dL (13.5-17.0); HGB HCT DIFFERENCE -0.7; LYMPHOCYTES % (AUTO) 9.6 % (13-45); MEAN CORPUSCULAR HGB CONC 32.4 g/dL (32.0-36.0); MEAN CORPUSCULAR VOLUME 99 fl (80-97); MONOCYTES % (AUTO) 11.9 % (3-13); RED BLOOD COUNT 2.75 10^6/uL (4.35-5.55); RED CELL DISTRIBUTION WIDTH 24.5 % (11.5-14.0); SEGMENTED NEUTROPHILS % (AUTO) 67.6 % (42-78); WHITE BLOOD COUNT 5.9 10^3/uL (4.0-10.5)
--- NOTE | 2016-12-13 12:10 | RADIOLOGY REPORT (SQ) ---
EXAM DESCRIPTION: CHEST SINGLE VIEW COMPLETED DATE/TIME: 12/13/2016 12:01 pm REASON FOR STUDY: cp COMPARISON: 11/13/2016 EXAM PARAMETERS: NUMBER OF VIEWS: One view. TECHNIQUE: Single frontal radiographic view of the chest acquired. RADIATION DOSE: NA LIMITATIONS: None. FINDINGS: LUNGS AND PLEURA: No opacities, masses or pneumothorax. No pleural effusion. MEDIASTINUM AND HILAR STRUCTURES: No masses. Contour normal. HEART AND VASCULAR STRUCTURES: Cardiac silhouette is enlarged. BONES: No acute findings. HARDWARE: None in the chest. OTHER: No other significant finding. IMPRESSION: Cardiomegaly. No acute consolidations or pleural effusions are identified. Other findi ngs as noted above TECHNICAL DOCUMENTATION: JOB ID: [id number]
[2016-12-13 12:16] LABS: ALANINE AMINOTRANSFERASE 32 U/L (21-72); ALBUMIN 4.1 g/dL (3.5-5.0); ALKALINE PHOSPHATASE 59 U/L (38-126); ANION GAP 10 (5-19); ASPARTATE AMINO TRANSFERASE 30 U/L (17-59); BILIRUBIN,DIRECT 0.4 mg/dL (0.0-0.4); BLOOD UREA NITROGEN 24 mg/dL (7-20); CALCIUM 8.3 mg/dL (8.4-10.2); CARBON DIOXIDE 28 mmol/L (22-30); CHLORIDE 100 mmol/L (98-107); CREATINE KINASE 221 U/L (55-170); CREATININE RESULT 3.88 mg/dL (0.52-1.25); GLUCOSE 87 mg/dL (75-110); POTASSIUM 4.2 mmol/L (3.6-5.0); SODIUM 137.5 mmol/L (137-145)
[2016-12-13 12:27] LABS: CREATINE KINASE MB 3.33 ng/mL (<4.55)
[2016-12-13 12:31] LABS: TROPONIN I 0.077 ng/mL
[2016-12-13 12:44] LABS: ANISOCYTOSIS 3+; HYPOCHROMASIA 1+; OVALOCYTES 2+; POIKILOCYTOSIS 2+; ROULEAUX SLIGHT
--- NOTE | 2016-12-13 13:11 | EKG REPORT ---
SEVERITY:- ABNORMAL ECG - INCOMPLETE ANALYSIS DUE TO MISSING DATA IN PRECORDIAL LEAD(S) SINUS RHYTHM ATRIAL PREMATURE COMPLEX FIRST DEGREE AV BLOCK RIGHT BUNDLE BRANCH BLOCK : Confirmed by: Marco Antonio Padilla MD 13-Dec-2016 13:10:31
--- NOTE | 2016-12-13 13:12 | EKG REPORT ---
SEVERITY:- ABNORMAL ECG - SINUS RHYTHM FIRST DEGREE AV BLOCK RIGHT BUNDLE BRANCH BLOCK NONSPECIFIC INFEROLATERAL ST-T INVERSIONS. : Confirmed by: Marco Antonio Padilla MD 13-Dec-2016 13:12:05
--- NOTE | 2016-12-13 13:32 | ER Document Report ---
ED General - General Chief Complaint: Chest Pain Stated Complaint: CHEST PAIN Time Seen by Provider: 12/13/16 12:58 TRAVEL OUTSIDE OF THE [place] IN LAST 30 DAYS: No - HPI Notes: 61-year-old former smoker with history of end-stage renal disease on dialysis presents emergency department complaining of intermittent sharp stabbing chest pain that is both substernal and epigastric in location with been going on since 1030 this morning. States it is associated with shortness of breath. States that nitroglycerin at home and from EMS have improved his pain. Has had this pain in the past, had a stress test about a month ago but he does not recall the results. Has never had a cardiac catheterization. Denies nausea, vomiting, diarrhea. Only recent surgery was a cholecystectomy one month ago. Pain does not feel similar to that. Given aspirin from EMS this morning. 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/16 13:07) molina syndrome Home Medications: Current Home Medications Amlodipine Besylate [Norvasc 5 mg Tablet] 10 mg PO DAILY 12/13/16 [History] Aspirin [Adult Low Dose Aspirin EC] 81 mg PO DAILY 12/13/16 [History] Atorvastatin Calcium [Lipitor 20 mg Tablet] 20 mg PO DAILY 12/13/16 [History] Insulin Glargine,Hum.rec.anlog [Lantus Solostar] 5 unit SQ QPM 12/13/16 [History ] Nitroglycerin [Nitrostat 0.4 mg (1/150 Gr) Tabs 25/Bottle] 0.4 mg SL Q5MP PRN [History] Pregabalin [Lyrica 25 mg Capsule] 25 mg PO DAILY 12/13/16 [History] Tapentadol Hydrochloride [Nucynta] 50 mg PO BID 12/13/16 [History] Past Medical History - General Information source: Patient, Relative - Social History Smoking Status: Former Smoker Cigarette use (# per day): No Chew tobacco use (# tins/day): No Frequency of alcohol use: None Drug Abuse: None Family History: Reviewed & Not Pertinent - Past Medical History Cardiac Medical History: Reports: Hx Congestive Heart Failure, Hx Coronary Artery Disease Pulmonary Medical History: Neurological Medical History: Endocrine Medical History: Reports: Hx Diabetes Mellitus Type 2 Renal/ Medical History: Reports: Hx End Stage Renal Disease, Hx Hemodialysis, Hx Renal Insufficiency. Denies: Hx Peritoneal Dialysis GI Medical History: Reports: Hx Gastroesophageal Reflux Disease, Other - Lap charlotte Musculoskeltal Medical History: Denies Hx Arthritis Psychiatric Medical History: Reports: Hx Depression Past Surgical History: Reports: Hx Orthopedic Surgery, Hx Vascular Surgery, Other - Neck surgery in 2013 - Immunizations Hx Diphtheria, Pertussis, Tetanus Vaccination: Yes Hx Pneumococcal Vaccination: 02/05/15 Review of Systems - Review of Systems Constitutional: No symptoms reported EENT: No symptoms reported Cardiovascular: Chest pain Respiratory: Short of breath Gastrointestinal: No symptoms reported -: Yes All other systems reviewed and negative Physical Exam - Vital signs Vitals: Resp Pulse Ox 13 95 12/13/16 12:02 12/13/16 12:02 Notes: Resp Pulse Ox 13 95 12/13/16 12:02 12/13/16 12:02 - Notes Notes: GENERAL: Alert, interacts well. No acute distress. HEAD: Normocephalic, atraumatic EYES: Pupils equal, round and reactive to light, extraocular movements intact. ENT: Oral mucosa moist, tongue midline. NECK: Full range of motion, supple, trachea midline. LUNGS: Clear to auscultation bilaterally, no wheezes, rales or rhonchi, no respiratory distress. HEART: Regular rate and rhythm, no murmurs, gallops, rubs. ABDOMEN: Soft, nontender, nondistended, bowel sounds present in all 4 quadrants. EXTREMITIES: Moves all 4 extremities spontaneously, no edema, radial and dorsalis pedis pulses 2/4 bilaterally. No cyanosis. NEUROLOGICAL: Alert and oriented x3, normal speech. PSYCH: Normal mood, normal affect. SKIN: Warm, Dry, normal turgor, no rashes or lesions noted. Course - Re-evaluation Re-evalutation: 12/13/16 13:33 CBC shows chronic anemia with hemoglobin 8.8, platelets slightly low at 142, CMP shows chronic renal failure consistent with his end-stage renal disease on dialysis, BUN 24 creatinine 3.88, cardiac enzymes indeterminate with a troponin of 0.077. EKG has new T-wave inversions. Patient's chest pain is relieved with nitroglycerin. Patient will be treated with beta chang, Lovenox, simvastatin. Patient has already received aspirin from EMS. 12/13/16 13:36 Discussed this case with Dr. Baez his primary care physician, states that the patient has known coronary artery disease, states that he has had a recent stress test but he does not have the results to this. Given the ongoing chest pain that is relieved by nitroglycerin associated with new EKG changes he recommends transfer of the patient to [facility] where his presales engineer practices Dr. Rubén Clinton. I have called the transfer line and I am awaiting a phone call back. 12/13/16 14:04 12/13/16 14:[address] Clinton, he states that the patient had a negative stress test back in February 2016 as well as last month. He states he would be glad to accept the patient however they have no beds available so his suggestion is that the patient be kept here in observation status and have her troponins and EKGs tract. If anything changes we should contact them for an emergent cath otherwise he can follow up with the patient as an outpatient for a cath in approximately 1 week. I discussed this both with Dr. Angel and Dr. Baez and they agreed to place the patient on Dr. Baez service in observation status. - Vital Signs Vital signs: Temp Pulse Resp BP Pulse Ox 98.5 F 59 L 13 163/65 H 100 12/15/16 17:44 12/15/16 17:44 12/15/16 17:44 12/15/16 17:44 12/15/16 17:44 - Laboratory Result Diagrams: 12/15/16 05:36 12/15/16 05:36 Laboratory results interpreted by me: 12/13/16 12/13/16 11:50 11:50 RBC 2.75 L Hgb 8.8 L Hct 27.1 L MCV 99 H RDW 24.5 H Plt Count 142 L Lymphocytes % 9.6 L Eosinophils % 9.5 H BUN 24 H Creatinine 3.88 H Est GFR ( Amer) 19 L Est GFR (Non-Af Amer) 16 L Calcium 8.3 L Creatine Kinase 221 H - EKG Interpretation by Me Additional EKG results interpreted by me: 12/13/16 13:37 EKG shows sinus rhythm at a rate of 60, first-degree AV block, right bundle branch block, new T-wave inversions noted in 2, 3, aVF, V3 through V6 per my interpretation. Discharge - Discharge Clinical Impression: Unstable angina, End stage renal disease, CKD (chronic kidney disease) stage V requiring chronic dialysis Anemia in chronic kidney disease (CKD) Qualifiers: Chronic kidney disease stage: on chronic dialysis Qualified Code(s): N18.6 - End stage renal disease Condition: Fair Disposition: ADMITTED OBSERVATION Admitting Provider: [facility] Unit Admitted: Telemetry Scribe Attestation: 12/20/16 00:04 I personally performed the services described in the documentation, reviewed and edited the documentation which was dictated to the scribe in my presence, and it accurately records my words and actions.
[2016-12-13] MEDS ORDERED: NITROGLYCERIN 0.4 MG/TAB 25 TAB/BOTTLE SL PRN ×2 (13:33→14:11)
[2016-12-13] MEDS ORDERED: NITROGLYCERIN 2% OINTMENT 1 GM PACKET TP ONE (13:33)
[2016-12-13] MEDS ORDERED: ASPIRIN 325 MG TABLET PO ONE (13:34)
[2016-12-13] MEDS ORDERED: SIMVASTATIN 40 MG TABLET PO ONE (13:34)
[2016-12-13] MEDS ORDERED: ENOXAPARIN SODIUM INJ 100 MG/1 ML DISP.SYRIN SUBCUT SCH (13:45)
[2016-12-13] MEDS ORDERED: IPRATROPIUM/ALBUTEROL 0.5-2.5 MG/3 ML AMPUL NEB PRN (13:58)
[2016-12-13] MEDS ORDERED: ACETAMINOPHEN 325 MG TABLET PO PRN (13:58)
[2016-12-13] MEDS ORDERED: DEXTROSE 50%-WATER 25 GM/50 ML DISP.SYRIN IV PRN ×2 (14:12)
[2016-12-13] MEDS ORDERED: INSULIN LISPRO 100 UNIT/ML 3 ML VIAL SUBCUT PRN (14:12)
[2016-12-13] MEDS ORDERED: DEXTROSE 40% GEL 15 GM TUBE PO PRN ×2 (14:12)
[2016-12-13] MEDS ORDERED: GLUCAGON,HUMAN RECOMB 1 MG INJ IM PRN (14:12)
[2016-12-13] MEDS ORDERED: HEPARIN SOD (PORCINE) 1,000 UNIT/ML 10 ML VIAL IV ONE (14:14)
[2016-12-13] MEDS ORDERED: HEPARIN SODIUM,PORCINE/D5W 250 ML IV PRN (14:14)
[2016-12-13] MEDS ORDERED: HEPARIN SOD (PORCINE) 1,000 UNIT/ML 10 ML VIAL IV PRN (14:14)
[2016-12-13 14:26] LABS: PROTHROMBIN TIME 14.4 SEC (11.4-15.4)
[2016-12-13 14:27] LABS: PARTIAL THROMBOPLASTIN TIME 33.3 SEC (23.5-35.8)
[2016-12-13] MEDS: CARVEDILOL 3.125 MG TABLET PO SCH (15:01)
[2016-12-13] MEDS ORDERED: ISOSORBIDE MONONITRATE 60 MG TAB.ER.24H PO SCH (16:00)
[2016-12-13] MEDS ORDERED: (PENDING PHARMACY ID) (Isosorbide Mononitrate [Isosorbide Mononitrate Er] 120 MG) PO SCH (16:00)
--- NOTE | 2016-12-13 16:42 | PDOC H&P ---
History of Present Illness Admission Date/PCP: 12/13/16 14:27 FEI ZULETA MD Patient complains of: Chest pain History of Present Illness: CHAPITO LESLIE is a 61 year old male This 61-year-old male with a history of the end-stage renal disease on hemodialysis history of the hypertensions and a history of the coronary disease and multiple other comorbidity came to the emergency department with a complaint of chest pain this morning on and off and relieved with the nitroglycerin. Patient's initial EKG some T-wave changes and troponin was 0.077 which is normal for the chronic kidney disease As per ER physician discussed with the [facility] cardiology and suggest to admit the patient here and if the patient's to continues with chest pain to the cardiac cath and he will transfer the patient's body of the patient's chest pain -free discharge home and follow outpatients for the cardiac cath and further evaluations Past Medical History Cardiac Medical History: Reports: Congestive Heart Failure, Coronary Artery Disease Pulmonary Medical History: Neurological Medical History: Endocrine Medical History: Reports: Diabetes Mellitus Type 2 Renal/ Medical History: Reports: End Stage Renal Disease GI Medical History: Reports: Gastroesophageal Reflux Disease, Other - Lap charlotte Musculoskeltal Medical History: Denies: Arthritis Psychiatric Medical History: Reports: Depression Hematology: Reports: Anemia Past Surgical History Past Surgical History: Reports: Orthopedic Surgery, Vascular Surgery, Other - Neck surgery in 2012 Social History Smoking Status: Former Smoker Frequency of Alcohol Use: None Hx Recreational Drug Use: No Hx Prescription Drug Abuse: No Family History Family History: Reviewed & Not Pertinent Parental Family History Reviewed: Yes Children Family History Reviewed: Yes Sibling(s) Family History Reviewed.: Yes Medication/Allergy Allergies/Adverse Reactions: vancomycin [Vancomycin] Adverse Reaction (Unknown, Verified 12/13/16 13:07) molina syndrome Review of Systems Constitutional: ABSENT: chills, fever(s), headache(s), weight gain, weight loss Eyes: ABSENT: visual disturbances Ears: ABSENT: hearing changes Cardiovascular: PRESENT: chest pain. ABSENT: dyspnea on exertion, edema, orthropnea, palpitations Respiratory: ABSENT: hemoptysis Gastrointestinal: ABSENT: abdominal pain, constipation, diarrhea, hematemesis, hematochezia, nausea, vomiting Genitourinary: ABSENT: dysuria, hematuria Musculoskeletal: ABSENT: joint swelling Integumentary: ABSENT: rash, wounds Neurological: ABSENT: abnormal gait, abnormal speech, confusion, dizziness, focal weakness, syncope Psychiatric: ABSENT: anxiety, depression, homidical ideation, suicidal ideation Endocrine: ABSENT: cold intolerance, heat intolerance, menstrual abnormalities, polydipsia, polyuria Hematologic/Lymphatic: ABSENT: easy bleeding, easy bruising, lymphadenopathy Physical Exam Vital Signs: Temp Pulse Resp BP Pulse Ox 13 95 12/13/16 12:02 12/13/16 12:02 General appearance: PRESENT: no acute distress, well-developed, well-nourished Head exam: PRESENT: atraumatic, normocephalic Eye exam: PRESENT: conjunctiva pink, EOMI, PERRLA. ABSENT: scleral icterus Ear exam: PRESENT: normal external ear exam Mouth exam: PRESENT: moist, tongue midline Neck exam: PRESENT: full ROM. ABSENT: carotid bruit, JVD, lymphadenopathy, thyromegaly Respiratory exam: PRESENT: clear to auscultation john Cardiovascular exam: PRESENT: RRR. ABSENT: diastolic murmur, rubs, systolic murmur Pulses: PRESENT: normal dorsalis pedis pul, +2 pedal pulses bilateral Vascular exam: PRESENT: normal capillary refill GI/Abdominal exam: PRESENT: normal bowel sounds, soft. ABSENT: distended, guarding, mass, organolmegaly, rebound, tenderness Rectal exam: PRESENT: deferred Neurological exam: PRESENT: alert, awake, oriented to person, oriented to place , oriented to time, oriented to situation, CN II-XII grossly intact. ABSENT: motor sensory deficit Psychiatric exam: PRESENT: appropriate affect, normal mood. ABSENT: homicidal ideation, suicidal ideation Skin exam: PRESENT: dry, intact, warm. ABSENT: cyanosis, rash Results Impressions: Chest X-Ray 12/13/16 11:34 IMPRESSION: Cardiomegaly. No acute consolidations or pleural effusions are identified. Other findings as noted above Assessment & Plan - Diagnosis (3) Chest pain Qualifiers: Chest pain type: unspecified Qualified Code(s): R07.9 - Chest pain, unspecified (4) Coronary artery disease Qualifiers: Coronary Disease-Associated Artery/Lesion type: unspecified vessel or lesion type (5) Diabetes mellitus Qualifiers: Diabetes mellitus type: type 2 Diabetes mellitus complication status: with neurologic complications Diabetes mellitus complication detail: with polyneuropathy Diabetes mellitus custodial insulin use: with custodial use Qualified Code(s): E11.42 - Type 2 diabetes mellitus with diabetic polyneuropathy; Z79.4 - snf (current) use of insulin - Time Time Spent: 30 to 50 Minutes Medications reviewed and adjusted accordingly: Yes Anticipated discharge: Home Within: Other - Inpatient Certification Medical Necessity: Need Close Monitoring Due to Risk of Patient Decompensation 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 Angel
[2016-12-13] MEDS: CALCIUM ACETATE 667 MG CAPSULE PO SCH (17:24)
[2016-12-13 19:02] LABS: CREATINE KINASE MB 3.09 ng/mL (<4.55); TROPONIN I 0.073 ng/mL
[2016-12-13] MEDS: AMLODIPINE BESYLATE 5 MG TABLET PO SCH (21:49)
[2016-12-13] MEDS: TRAMADOL HCL 50 MG TABLET PO PRN (21:52)
[2016-12-13] MEDS: FAMOTIDINE INJ/PF 20 MG/2 ML SDV IV SCH (21:52)
[2016-12-13] MEDS: INSULIN GLARGINE,HUM.REC.ANLOG 300 UNIT/3 ML INSULN.PEN SUBCUT SCH (21:53)
[2016-12-14 01:02] LABS: CREATINE KINASE MB 2.66 ng/mL (<4.55)
[2016-12-14 01:05] LABS: TROPONIN I 0.079 ng/mL
[2016-12-14] MEDS: LANSOPRAZOLE 15 MG TAB.RAP.DR PO SCH (06:06)
[2016-12-14 06:57] LABS: HEMATOCRIT 26.5 % (37.9-51.0); HEMOGLOBIN 8.7 g/dL (13.5-17.0); HGB HCT DIFFERENCE -0.4; MEAN CORPUSCULAR HEMOGLOBIN 32.2 pg (27.0-33.4); MEAN CORPUSCULAR HGB CONC 32.9 g/dL (32.0-36.0); MEAN CORPUSCULAR VOLUME 98 fl (80-97); RED CELL DISTRIBUTION WIDTH 23.7 % (11.5-14.0); WHITE BLOOD COUNT 3.7 10^3/uL (4.0-10.5)
[2016-12-14 07:08] LABS: ANION GAP 10 (5-19); BLOOD UREA NITROGEN 37 mg/dL (7-20); CALCIUM 8.8 mg/dL (8.4-10.2); CARBON DIOXIDE 28 mmol/L (22-30); CHLORIDE 101 mmol/L (98-107); CREATINE KINASE 192 U/L (55-170); CREATININE RESULT 6.37 mg/dL (0.52-1.25); GLUCOSE 80 mg/dL (75-110); POTASSIUM 5.1 mmol/L (3.6-5.0); SODIUM 139.1 mmol/L (137-145)
[2016-12-14 07:21] LABS: CREATINE KINASE MB 2.52 ng/mL (<4.55); TROPONIN I 0.081 ng/mL
[2016-12-14 07:58] LABS: ANISOCYTOSIS 3+; BAND NEUTROPHILS % (MANUAL) 1 % (3-5); BASOPHILS % (MANUAL) 3 % (0-2); EOSINOPHILS % (MANUAL) 14 % (0-6); HYPOCHROMASIA 2+; LYMPHOCYTES % (MANUAL) 27 % (13-45); ROULEAUX SLIGHT; TOTAL CELLS COUNTED 100; TOXIC GRANULATION SLIGHT
[2016-12-14 07:59] LABS: OVALOCYTES 1+; POIKILOCYTOSIS 1+; POLYCHROMASIA SLIGHT
[2016-12-14] MEDS: CARVEDILOL 3.125 MG TABLET PO SCH ×2 (08:20→16:32)
[2016-12-14] MEDS: CALCIUM ACETATE 667 MG CAPSULE PO SCH ×3 (08:20→16:31)
--- NOTE | 2016-12-14 08:44 | PDOC PROGRESS REPORT ---
Subjective Progress Note for:: 12/14/16 Subjective:: Patient is currently doing well denied any chest pain denied any shortness of the breath.Patient's all cardiac enzymes so far no acute finding Physical Exam Vital Signs: Temp Pulse Resp BP Pulse Ox 98.3 F 54 L 20 155/56 H 98 12/14/16 07:53 12/14/16 07:53 12/14/16 07:53 12/14/16 07:53 12/14/16 07:53 Intake & Output 12/13/16 12/14/16 12/15/16 06:59 06:59 06:59 Intake Total 165 Output Total 0 Balance 165 Weight 86.1 kg General appearance: PRESENT: no acute distress, well-developed, well-nourished Head exam: PRESENT: atraumatic, normocephalic Eye exam: PRESENT: conjunctiva pink, EOMI, PERRLA. ABSENT: scleral icterus Ear exam: PRESENT: normal external ear exam Mouth exam: PRESENT: moist, tongue midline Neck exam: PRESENT: full ROM. ABSENT: carotid bruit, JVD, lymphadenopathy, thyromegaly Respiratory exam: PRESENT: clear to auscultation john Cardiovascular exam: PRESENT: RRR. ABSENT: diastolic murmur, rubs, systolic murmur Pulses: PRESENT: normal dorsalis pedis pul, +2 pedal pulses bilateral Vascular exam: PRESENT: normal capillary refill GI/Abdominal exam: PRESENT: normal bowel sounds, soft. ABSENT: distended, guarding, mass, organolmegaly, rebound, tenderness Rectal exam: PRESENT: deferred Neurological exam: PRESENT: alert, awake, oriented to person, oriented to place , oriented to time, oriented to situation, CN II-XII grossly intact. ABSENT: motor sensory deficit Psychiatric exam: PRESENT: appropriate affect, normal mood. ABSENT: homicidal ideation, suicidal ideation Skin exam: PRESENT: dry, intact, warm. ABSENT: cyanosis, rash Results Laboratory Results: 12/14/16 06:15 12/14/16 06:15 12/14/16 12/14/16 06:15 06:15 WBC 3.7 L RBC 2.70 L Hgb 8.7 L Hct 26.5 L MCV 98 H MCH 32.2 MCHC 32.9 RDW 23.7 H Plt Count 137 L Seg Neutrophils % Not Reportable Lymphocytes % Not Reportable Monocytes % Not Reportable Eosinophils % Not Reportable Basophils % Not Reportable Absolute Neutrophils Not Reportable Absolute Lymphocytes Not Reportable Absolute Monocytes Not Reportable Absolute Eosinophils Not Reportable Absolute Basophils Not Reportable Sodium 139.1 Potassium 5.1 H Chloride 101 Carbon Dioxide 28 Anion Gap 10 BUN 37 H Creatinine 6.37 H Est GFR ( Amer) 11 L Est GFR (Non-Af Amer) 9 L Glucose 80 Calcium 8.8 12/13/16 12/13/16 12/14/16 18:15 18:15 00:13 Creatine Kinase 193 H 211 H CK-MB (CK-2) 3.09 Troponin I 0.073 12/14/16 12/14/16 12/14/16 00:13 06:15 06:15 Creatine Kinase 192 H CK-MB (CK-2) 2.66 2.52 Troponin I 0.079 0.081 Impressions: Chest X-Ray 12/13/16 11:34 IMPRESSION: Cardiomegaly. No acute consolidations or pleural effusions are identified. Other findings as noted above Assessment & Plan - Diagnosis (1) End stage renal disease Plan: Currently all stable (2) Unstable angina Plan: Continues to current medicationsFollow with the cardiology (3) Chest pain Qualifiers: Chest pain type: unspecified Qualified Code(s): R07.9 - Chest pain, unspecified Is this a current diagnosis for this admission?: YesPlan: All cardiac workup is stable discussed with the Dr. 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 mellitus extermination supervisor insulin use: with mcc use Qualified Code(s): E11.42 - Type 2 diabetes mellitus with diabetic polyneuropathy; Z79.4 - 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 manager (current) use of insulin Is this a current diagnosis for this admission?: YesPlan: Continues current medications (6) Hypertension Qualifiers: Hypertension type: essential hypertension Qualified Code(s): I10 - Essential (primary) hypertension Is this a current diagnosis for this admission?: YesPlan: Continues current medications - Time Time Spent with patient: 15-24 minutes Medications reviewed and adjusted accordingly: Yes Within: within 24 hours - Inpatient Certification Medical Necessity: Need Close Monitoring Due to Risk of Patient Decompensation Post Hospital Care: D/C Director [employer] Documentation - Plan Summary Plan Summary: Discussed with the patient and the about all the current test reports and if is cleared by the cardiology patients can discharge home. Discussed with the patient and the and the nursing staff to walk around in the rodas with the patient's
[2016-12-14] MEDS: AMLODIPINE BESYLATE 5 MG TABLET PO SCH ×2 (09:28→22:41)
[2016-12-14] MEDS: FAMOTIDINE INJ/PF 20 MG/2 ML SDV IV SCH (09:29)
[2016-12-14] MEDS: ASPIRIN 81 MG TABLET, ENT COATED PO SCH (09:29)
--- NOTE | 2016-12-14 11:27 | Physician Advisory Note ---
Physician Advisor ProgressNote .: [facility], I have reviewed the medical record for this patient. Physician Advisor Statement: Please consider documentin. "chronic ___ type CHF" 2. Medical necessity - CP, & even Acute UT, are essentially Outpt Obs dx.s until proven otherwise, and typically CP ruling out for UT can go home the next day. Please document any information that supports Inpatient status/greater acute severity of illness/need for pt to stay in hospital tonight. Otherwise, pt remains approp for Outpt Obs only. Thanks! CK
[2016-12-14] MEDS: TRAMADOL HCL 50 MG TABLET PO PRN (11:48)
[2016-12-14] MEDS ORDERED: MAG HYDROX/AL HYDROX/SIMETH SUSP 30 ML UDCUP PO ONE (12:00)
[2016-12-14] MEDS ORDERED: LIDOCAINE 2% VISCOUS SOLN 20 ML UDCUP PO ONE (12:00)
[2016-12-14] MEDS ORDERED: METOCLOPRAMIDE HCL ORAL SOLN 10 MG/10 ML UDCUP PO ONE (12:00)
--- NOTE | 2016-12-14 15:47 | RADIOLOGY REPORT (SQ) ---
EXAM DESCRIPTION: CT ABD/PELVIS NO ORAL OR IV COMPLETED DATE/TIME: 12/14/2016 1:26 pm REASON FOR STUDY: epigastric pain COMPARISON: 08/28/2015 TECHNIQUE: CT scan of the abdomen and pelvis performed without intravenous or oral contrast. Images reviewed with lung, soft tissue, and bone windows. Reconstructed coronal and sagittal MPR images revi ewed. All images stored on PACS. All CT scanners at this facility use dose modulation, iterative reconstruction, and/or weight based d osing when appropriate to reduce radiation dose to as low as reasonably achievable (ALARA). [facility]: Dose Right [facility]: CareDose [facility]: Dose Right [facility]: Teradose 4D [facility]: Smart Everloop RADIATION DOSE: Up-to-date CT equipment and radiation dose reduction techniques were employed. CTDIv ol: 6.1 mGy. DLP: 352 mGy-cm.mGy. LIMITATIONS: None. FINDINGS: LOWER CHEST: There is a focal pleural-based nodule in the right lower lobe. This is stabl e from prior study. There is some surrounding scar tissue. NON-CONTRASTED LIVER, SPLEEN, ADRENALS: Stable from prior study. No focal lesions. PANCREAS: No masses. No peripancreatic inflammatory changes. GALLBLADDER: Surgically absent. RIGHT KIDNEY AND URETER: No suspicious masses. Assessment limited by lack of IV contrast. No signif icant calcifications. No hydronephrosis or hydroureter. There are stable right renal cysts. LEFT KIDNEY AND URETER: No suspicious masses. Assessment limited by lack of IV contrast. No signifi cant calcifications. No hydronephrosis or hydroureter. There are stable left renal cyst. AORTA AND RETROPERITONEUM: No aneurysm. No retroperitoneal masses or adenopathy. BOWEL AND PERITONEAL CAVITY: No obvious masses or inflammatory changes. No free fluid. APPENDIX: Not visualized. PELVIS, BLADDER, AND ABDOMINAL WALL:No abnormal masses. No free fluid. Bladder normal. BONES: No significant findings. OTHER: No other significant finding. IMPRESSION: 1. No acute findings in the abdomen or pelvis. 2. Stable 2 cm pleural-based mass in the right lower lobe. TECHNICAL DOCUMENTATION: JOB ID: [id number] Quality ID # [id number]: Final reports with documentation of one or more dose reduction techniques (e.g., Au tomated exposure control, adjustment of the mA and/or kV according to patient size, use of iterative reconstruction technique) 2011 [employer]- All Rights Reserved
--- NOTE | 2016-12-14 16:03 | CONSULTATION REPORT E ---
Consultation Report NAME: CHAPITO LESLIE : 1955 AGE: 61Y DATE: 12/14/2016 ROOM: 334 A TO: MAGUE LORA M.D. FROM: KIM ZULETA M.D. Requesting Physician REASON FOR CONSULTATION: Patient with epigastric and lower front of chest pain, probable need to rule out unstable angina, hence, cardiology consult. HISTORY: The patient is a 61-year-old [place] origin [place] who has a history of diabetes mellitus, hypertension, end-stage renal disease, on hemodialysis, who states that he was having sudden onset of epigastric and lower front of chest pain which is tender to touch. He took some nitroglycerin which did not help him. The pain lasted for about 2 hours. His EKG shows no major changes and his cardiac enzymes have been indeterminate/negative. The patient when I saw him was having epigastric pain with some tenderness and this was relieved with GI cocktail; hence, clearly this was noncardiac and GI. There was no associated shortness of breath, palpitations, PND, orthopnea or pedal edema. He has had his dialysis regularly. He has not missed any dialysis. There are no palpitations, syncope, near syncope or dizziness. There is no TIA or CVA symptoms. PAST MEDICAL HISTORY: He has a past medical history of end-stage renal disease, on hemodialysis, history of hypertension, and history of diabetes mellitus. There is no history of TIA or CVA. No history of COPD, asthma or obstructive sleep apnea. There is no history of pulmonary embolism. There is no history of cough, sputum production, hemoptysis or pleuritic chest pain. PAST SURGICAL HISTORY: He has had C-spine surgery in the past. He has also had AV fistula placement and subsequently revision of the AV fistula. He has also had a cholecystectomy for gallstone cholecystitis. CARDIAC WORKUP: The patient in February of 2016 had a negative Cardiolite stress test and also last week he had a negative Cardiolite stress test in [facility]. ALLERGIES: The patient is ALLERGIC TO VANCOMYCIN. MEDICATIONS: 1. Coreg 3.125 mg p.o. b.i.d. before meals and at bedtime. 2. He is on hypoglycemic precautions with glucose 40% 15 g p.o. and 30 g p.o. p.r.n. hypoglycemia. 3. He is on amlodipine 5 mg p.o. every 12 hours. 4. He is on aspirin 81 mg p.o. daily. 5. He is on calcium acetate (PhosLo) 1334 mg p.o. meals. 6. He is on hypoglycemic precautions with dextrose 50% 12.5 g IV and 25 g IV p.r.n. respectively for hypoglycemia. 7. He is on Glucagon 1 mg IM p.r.n. hypoglycemia. 8. He is on heparin sodium 4000 units IV. 9. He is on heparin drip. 10. He is also on Lantus insulin 5 mg subcutaneously at bedtime. 11. He is on Accu-Cheks before meals t.i.d. and at bedtime with sliding-scale insulin coverage. 12. He is on ipratropium/albuterol p.r.n. nebulizer treatment every 6 hours p.r.n. 13. He is on lansoprazole 15 mg p.o. every 6 a.m. 14. He did receive GI cocktail. 15. He is on nitroglycerin 1 tablet sublingually every 5 minutes p.r.n. 16. He is on Tramadol 50 mg p.o. b.i.d. p.r.n. SOCIAL HISTORY: The patient is a former smoker. He does not smoke anymore. There is no history of ETOH abuse. FAMILY HISTORY: Positive for hypertension and diabetes. Negative for coronary artery disease. CODE STATUS: THE PATIENT IS A FULL CODE. His is his surrogate healthcare decision maker. REVIEW OF SYSTEMS: CONSTITUTIONAL: No history of fever, chills or rigors. No history of generalized weakness or fatigue. HEAD: Denies headaches or head injury. No dizziness. EYES: No history of amblyopia or diplopia. No history of amaurosis fugax. EARS: No history of tinnitus. No history of hearing loss. No history of vertigo. No history of recurrent ear infection. NOSE: No history of hay fever. No history of nosebleeds. No history of nasal polyps. MOUTH: No history of altered taste sensation or ulcers in the mouth. No bleeding from the gums. THROAT: There is no odynphagia or dysphagia. There is no recurrent sore throats. SKIN: There is no pruritus. There is no yellowish discoloration of the skin. There is no skin cancer. There is no psoriasis. C-SPINE: History of C-spine surgery but no neck pain. No painless or painful swelling of the legs. No goiter. LUNGS: No history of cough or sputum production. No history of wheezing. No history of pleuritic chest pain. No history of sleep apnea. No history of asthma or COPD. No history of pulmonary embolism. No history of recent wheezing, cough or sputum production suggestive of pneumonia. No symptoms of upper respiratory tract infection. CARDIAC: History of hypertension. Multiple risk factors for coronary artery disease and atypical chest pain. The last time the patient had chest pain it ended up with the patient having cholecystectomy due to gallstones. He had a negative stress test in February of 2016 with Cardiolite and a negative Cardiolite stress test about a week ago in [place]. He has a history of hypertension. He has no history of congestive heart failure. No history of PND, orthopnea, leg edema, palpitations or syncope. ENDOCRINE: History of diabetes mellitus type 2, insulin dependent. No history of polydipsia or polyuria. No history of heat or cold intolerance. No history of thyroid disease. RENAL: History of end-stage renal disease. No history of hematuria, pyuria or dysuria. The patient is on hemodialysis. GASTROINTESTINAL: Symptoms suggestive of GI this time with epigastric pain and lower chest pain reproduced by pressing on the area. He has no history of GI bleed, no history of fatty food intolerance, no history of hepatitis, no history of cirrhosis, no history of jaundice, no history of altered bowel movements, and no history of GI bleed. CENTRAL NERVOUS SYSTEM: No history of TIA or CVA. No history of headaches, migraines or seizures. No history of gait imbalance. PSYCHIATRIC: No history of anxiety or depression. No history of suicidal ideation. No history of homicidal ideation. VASCULAR: No history of calf or buttock claudication. No history of DVT. HEMATOLOGICAL: No history of bleeding diathesis. There is no history of clotting disorders. METABOLIC: No history of gout. He denies any history of hyperlipidemia. MUSCULOSKELETAL: History of arthritis and low back pain. No history of collagen-vascular disease. PHYSICAL EXAMINATION: GENERAL: The patient is well built and well nourished, at present in no acute distress. VITAL SIGNS: He is afebrile with a temperature of 97.6 degrees Fahrenheit, pulse is 56 beats per minute, blood pressure is 135/61, respirations are 20 per minute, O2 sat is 100% on nasal cannula of 0.5 L per minute. HEENT: Head is atraumatic, normocephalic. Eyes - Pupils are equal, round, regular, reactive to light and accommodation. Extraocular movements are normal. There is no conjunctival pallor. There is no scleral icterus. Ears - Tympanic membranes are intact. External auditory canals are clear. There are no lesions on the pinna. Nose - There is no deviated nasal septum. There is no inflammation of the nasal mucous membranes. Mouth - Mucous membranes of the mouth are moist. The tongue is moist. There are no ulcers. There is no bleeding from the gums. Throat - There is no redness of the oropharynx. No exudates. SKIN: There are no skin rashes. There is no petechia or ecchymosis. No skin lesions. NECK: Supple. There is no JVD. Carotids are equal. There is no bruit. There is no lymphadenopathy. There is no goiter. Trachea is central. LUNGS: Clear to auscultation and percussion. There is no chest wall tenderness. HEART: S1 and S2 is heard. There is no S3 gallop. There is no S4 gallop. There is a systolic murmur at the left sternal border and the apex. There is no rub. ABDOMEN: Soft. There is minimal discomfort on pressing on the epigastrium reproducing the patient's symptoms. There is no hepatosplenomegaly. There is no rebound, guarding or rigidity. Bowel sounds are well heard. There are no masses felt. EXTREMITIES: Femorals are diminished. Leg pulses are diminished. There are no femoral bruits. There is no pedal edema. There is no DVT or cellulitis. There is no calf tenderness. The patient has a working AV fistula in the left arm. There is no cyanosis or clubbing. Capillary refill is normal. CENTRAL NERVOUS SYSTEM: The patient is conscious, awake, alert, oriented x3 without any focal deficits. PSYCHIATRIC: Judgement and insight are intact. His affect is normal. DIAGNOSTICS: The patient's EKG done yesterday, 12/13/2016, shows sinus rhythm, right bundle branch block pattern, V6 lead is absent, and there is a first-degree AV block. There is 1 atrial premature complex. The patient's EKG done subsequently yesterday shows similar sinus rhythm, first-degree AV block, right bundle branch block pattern. No significant changes. No acute changes. The patient's chest x-ray is negative. His chest x-ray and EKG were reviewed by me. The patient's white count is 3700, hemoglobin is 8.7, hematocrit is 26.5, and his platelet count is 137,000. The patient's pro time is 14.4, INR is 1.05, SGPT is 33.3. The patient's sodium is 139, potassium is slightly elevated at 5.1, chloride is 101, CO2 is 28, patient's BUN is 37, creatinine is 6.37, GFR is reduced at 9 mL/min, his glucose is 80, and his calcium is 8.8. He has CPK elevation, but his CPK MBs are negative. His troponin I is 0.077, 0.073, 0.079, and 0.081, which is indeterminate/negative. IMPRESSION: 1. EPIGASTRIC AND LOWER CHEST PAIN, MOST LIKELY SECONDARY TO GI PROBLEM SINCE GI COCKTAIL RELIEVED IT NOW, EVIDENCE THAT THIS IS TYPICAL OR ATYPICAL ANGINA. 2. LOWER CHEST AND EPIGASTRIC PAIN, NONCARDIAC. 3. RIGHT BUNDLE BRANCH BLOCK PATTERN AND FIRST-DEGREE AV BLOCK BY EKG. 4. NO EVIDENCE OF WA THIS ADMISSION. 5. HYPERTENSION. 6. DIABETES MELLITUS, TYPE 2, INSULIN DEPENDENT. 7. END-STAGE RENAL DISEASE, ON HEMODIALYSIS. RECOMMENDATIONS: Would continue the patient's current medication. Would start the patient on hydralazine to control the patient's blood pressure. Would recommend GI workup. Continue his current medications, including Norvasc, small dose of beta chang, aspirin, and his insulin. Would recommend proton-pump inhibitors. Would recommend stopping the patient's metoclopramide since this can cause bradycardia since the patient is already bradycardic. NOTE: The patient was seen from 11:30 a.m. to 12:10 p.m. A total of 40 minutes was spent on the patient with more than 50% of the time spent in direct patient care. His medications have been reviewed and adjusted, and he was also given new medication in the form of GI cocktail. Note that this involved a highly complex medical decision making. Cardiac status is stable. The patient is advised to follow up with me. I will follow up the patient in the office and will sign off the case. Discussed with Dr. Kim Zuleta, the attending on record, and discussed future management plan of this patient with the attending physician. Discussed with the patient and the patient's . Of note, THE PATIENT IS A FULL CODE; his is surrogate healthcare decision maker. DICTATING PHYSICIAN: MAGUE LORA M.D. [id number] PHY#: [id number] ID: [id number] JOB#: [id number] ACCT: [id number] cc:MAGUE LORA M.D. > MTDD
--- NOTE | 2016-12-14 16:37 | PDOC CONSULTATION ---
Consultation Consult Date: 12/14/16 Attending physician:: FEI ZULETA Consult reason:: I was asked by Dr. Zuleta to see the patient to supervise hemodialysis while here in the hospital. History of Present Illness Admission Date/PCP: 12/13/16 14:27 FEI ZULETA MD History of Present Illness: The patient is a 61-year-old [place] gentleman known to me with history of end- stage renal disease on hemodialysis on Mondays, Wednesdays, and Fridays, history of hypertension, diabetes mellitus, and coronary artery disease who was brought and by EMS from [facility] dialysis unit to the emergency room yesterday because of chest pains. Patient said that the chest pain started while he was on dialysis yesterday. The blood pressure was relatively low compared to his usual with the systolic being in the low 100s. He was given a couple of nitroglycerin tablets in dialysis but that has not resolved so [facility] dialysis nurse called the EMS to bring him to the emergency room. He received a couple of other nitroglycerin tablets while in the ambulance on the way to the emergency room. He said the chest pain resolved to get to the emergency room. Initial evaluation showed no apparent EKG changes with indeterminate troponin. [facility] did not take the patient for transfer as the patient ended up being admitted by Dr. Zuleta here. This morning the patient said he had another episode of the same chest discomfort described around the epigastric area and nonradiating. This is associated with slight shortness of breath and nausea. This was resolved however by GI cocktail. Ballet Teacher Dr. Angel saw the patient is morning and thought that this is noncardiac and possibly GI in origin. He is currently scheduled for EGD by Dr. Jaimes tomorrow. He will need hemodialysis tomorrow. Currently he is hemodynamically stable and is not having any chest discomfort when I am seeing him. Past Medical History Cardiac Medical History: Reports: CHF-Diastolic, Coronary Artery Disease, Hypertension-primary Pulmonary Medical History: EENT Medical History: Reports: Cataracts, Other - Glaucoma Neurological Medical History: Endocrine Medical History: Reports: Diabetes Mellitus Type 2 Complications of Diabetes: Reports: Nephropathy Renal/ Medical History: Reports: End Stage Renal Disease GI Medical History: Reports: Gastroesophageal Reflux Disease, Other - Lap [place] Psychiatric Medical History: Reports: Depression, Other - Anxiety Hematology Medical History: Reports Other - Hepatitis C Past Surgical History Past Surgical History: Reports: Dialysis Access Surgery AVF, Orthopedic Surgery - Right big toe amputation in 2015, left third and fourth toe amputations, Other - Neck surgery in 2013 Social History Information Source: Patient Smoking Status: Former Smoker Number of Years Smokin Last Time Smoked: 06/06/1986 Frequency of Alcohol Use: None Hx Recreational Drug Use: No Hx Prescription Drug Abuse: No - Advance Directive Resuscitation Status: Full Code Family History Family History: Reviewed & Not Pertinent Parental Family History Reviewed: Yes Children Family History Reviewed: Yes Sibling(s) Family History Reviewed.: Yes Medication/Allergy Home Medications: Amlodipine Besylate [Norvasc 5 mg Tablet] 10 mg PO DAILY 12/13/16 Aspirin [Adult Low Dose Aspirin EC] 81 mg PO DAILY 12/13/16 Atorvastatin Calcium [Lipitor 20 mg Tablet] 20 mg PO DAILY 12/13/16 Insulin Glargine,Hum.rec.anlog [Lantus Solostar] 5 unit SQ QPM 12/13/16 Nitroglycerin [Nitrostat 0.4 mg (1/150 Gr) Tabs 25/Bottle] 0.4 mg SL Q5MP PRN Pregabalin [Lyrica 25 mg Capsule] 25 mg PO DAILY 12/13/16 Tapentadol Hydrochloride [Nucynta] 50 mg PO BID 12/13/16 Allergies/Adverse Reactions: vancomycin [Vancomycin] Adverse Reaction (Unknown, Verified 12/13/16 13:07) molina syndrome Review of Systems All systems: reviewed and no additional remarkable complaints except as stated Review of Systems: Constitutional: ABSENT: chills, fatigue, fever(s), headache(s), weight gain, weight loss Eyes: ABSENT: visual disturbances Ears: ABSENT: hearing changes Cardiovascular: ABSENT: Dyspnea on exertion, edema, orthropnea, palpitations; admits to chest discomfort associated with shortness of breath Respiratory: ABSENT: cough, dyspnea, hemoptysis Gastrointestinal: ABSENT: abdominal pain, constipation, diarrhea, hematemesis, hematochezia, vomiting; admits to nausea Genitourinary: ABSENT: dysuria, hematuria Musculoskeletal: ABSENT: joint swelling Integumentary: ABSENT: rash, wounds Neurological: ABSENT: abnormal gait, abnormal speech, confusion, dizziness, focal weakness, numbness, syncope Psychiatric: ABSENT: anxiety, depression Endocrine: ABSENT: cold intolerance, heat intolerance, polydipsia, polyuria Hematologic/Lymphatic: ABSENT: easy bleeding, easy bruising, lymphadenopathy Physical Exam Vital Signs: Temp Pulse Resp BP Pulse Ox 98.4 F 58 L 19 133/49 H 97 12/14/16 15:41 12/14/16 15:41 12/14/16 15:41 12/14/16 15:41 12/14/16 15:41 Intake & Output 12/13/16 12/14/16 12/15/16 06:59 06:59 06:59 Intake Total 165 118 Output Total 0 Balance 165 118 Weight 86.1 kg Exam: General appearance: no acute distress, cooperative, well-developed, well- nourished Head exam: PRESENT: atraumatic, normocephalic Eye exam: PRESENT: Conjunctiva [place], EOMI, PERRLA. ABSENT: conjunctival injection, scleral icterus Mouth exam: PRESENT: moist, neck supple, tongue midline Neck exam: PRESENT: full ROM. ABSENT: carotid bruit, JVD, lymphadenopathy, thyromegaly Respiratory exam: PRESENT: clear to auscultation bilaterally. ABSENT: rales, rhonchi, stridor, wheezes Cardiovascular exam: PRESENT: RRR, +S1, +S2. ABSENT: systolic murmur Pulses: PRESENT: normal radial pulses, normal dorsalis pedis pulses GI/Abdominal exam: PRESENT: normal bowel sounds, soft. ABSENT: guarding, mass, tenderness Rectal exam: deferred Extremities exam: PRESENT: full ROM. ABSENT: calf tenderness, pedal edema Musculoskeletal: PRESENT: full ROM. ABSENT: deformity Neurological exam: PRESENT: alert, Awake, Oriented to person, Oriented to place , Oriented to time, reflexes normal, CN II-XII grossly intact. ABSENT: motor sensory deficit Psychiatric exam: PRESENT: appropriate affect, normal mood. ABSENT: homicidal ideation, suicidal ideation Skin exam: PRESENT: intact, dry, warm. ABSENT: rash Results Laboratory Results: 12/14/16 06:15 12/14/16 06:15 12/14/16 12/14/16 06:15 06:15 WBC 3.7 L RBC 2.70 L Hgb 8.7 L Hct 26.5 L MCV 98 H MCH 32.2 MCHC 32.9 RDW 23.7 H Plt Count 137 L Seg Neutrophils % Not Reportable Lymphocytes % Not Reportable Monocytes % Not Reportable Eosinophils % Not Reportable Basophils % Not Reportable Absolute Neutrophils Not Reportable Absolute Lymphocytes Not Reportable Absolute Monocytes Not Reportable Absolute Eosinophils Not Reportable Absolute Basophils Not Reportable Sodium 139.1 Potassium 5.1 H Chloride 101 Carbon Dioxide 28 Anion Gap 10 BUN 37 H Creatinine 6.37 H Est GFR ( Amer) 11 L Est GFR (Non-Af Amer) 9 L Glucose 80 Calcium 8.8 12/13/16 12/13/16 12/14/16 18:15 18:15 00:13 Creatine Kinase 193 H 211 H CK-MB (CK-2) 3.09 Troponin I 0.073 12/14/16 12/14/16 12/14/16 00:13 06:15 06:15 Creatine Kinase 192 H CK-MB (CK-2) 2.66 2.52 Troponin I 0.079 0.081 Impressions: Chest X-Ray 12/13/16 11:34 IMPRESSION: Cardiomegaly. No acute consolidations or pleural effusions are identified. Other findings as noted above Abdomen/Pelvis CT 12/14/16 00:00 IMPRESSION: 1. No acute findings in the abdomen or pelvis. 2. Stable 2 cm pleural-based mass in the right lower lobe. Assessment & Plan - Diagnosis (1) End stage renal disease Is this a current diagnosis for this admission?: YesPlan: We will plan for hemodialysis tomorrow. (2) Anemia in chronic kidney disease (CKD) Qualifiers: Chronic kidney disease stage: on chronic dialysis Qualified Code(s): N18.6 - End stage renal disease; D63.1 - Anemia in chronic kidney disease; Z99.2 - Dependence on renal dialysis Is this a current diagnosis for this admission?: YesPlan: We will give him Procrit on hemodialysis. (3) Hyperkalemia Is this a current diagnosis for this admission?: Yes (4) Hypertension Qualifiers: Hypertension type: essential hypertension Qualified Code(s): I10 - Essential (primary) hypertension Is this a current diagnosis for this admission?: Yes (5) Atypical chest pain Is this a current diagnosis for this admission?: Yes (6) Diabetes mellitus Qualifiers: Diabetes mellitus type: type 2 Diabetes mellitus complication status: with neurologic complications Diabetes mellitus complication detail: with polyneuropathy Diabetes mellitus long term care pharmacist insulin use: with long term care pharmacist use Qualified Code(s): E11.42 - Type 2 diabetes mellitus with diabetic polyneuropathy; Z79.4 - detention (current) use of insulin Is this a current diagnosis for this admission?: Yes - Notes Notes: Thank you very much for this consultation. I will supervise patient's dialysis while in the hospital. - Time Time Spent: 50 to 70 Minutes
--- NOTE | 2016-12-14 19:15 | EKG REPORT ---
SEVERITY:- ABNORMAL ECG - SINUS RHYTHM FIRST DEGREE AV BLOCK RIGHT BUNDLE BRANCH BLOCK : Confirmed by: Marco Antonio Padilla MD 14-Dec-2016 19:15:30
[2016-12-14 19:24] LABS: APPEARANCE,URINE CLEAR; BILIRUBIN,URINE NEGATIVE (NEGATIVE); GLUCOSE, URINE 150 mg/dL (NEGATIVE); KETONES,URINE NEGATIVE (NEGATIVE); LEUKOCYTE ESTERASE,URINE NEGATIVE (NEGATIVE); NITRITE,URINE NEGATIVE (NEGATIVE); PROTEIN,URINE >=500 mg/dL (NEGATIVE); URINE SPECIFIC GRAVITY 1.005; UROBILINOGEN,URINE NEGATIVE mg/dL (<2.0)
[2016-12-14] MEDS: INSULIN GLARGINE,HUM.REC.ANLOG 300 UNIT/3 ML INSULN.PEN SUBCUT SCH (22:41)
[2016-12-15] MEDS ORDERED: EPOETIN ALFA INJ 20000 UNIT/1 ML VIAL (RENAL) IV PRN (05:00)
[2016-12-15] MEDS: LANSOPRAZOLE 15 MG TAB.RAP.DR PO SCH (05:18)
[2016-12-15 06:40] LABS: ABSOLUTE BASOPHILS # (AUTO) 0.1 10^3/uL (0.0-0.2); ABSOLUTE EOSINOPHILS # (AUTO) 0.6 10^3/uL (0.0-0.6); ABSOLUTE LYMPHOCYTES (AUTO) 0.9 10^3/uL (0.5-4.7); ABSOLUTE MONOCYTES (AUTO) 0.6 10^3/uL (0.1-1.4); ABSOLUTE NEUT (AUTO) 4.3 10^3/uL (1.7-8.2); BASOPHILS % (AUTO) 1.1 % (0-2); EOSINOPHILS % (AUTO) 9.6 % (0-6); HEMATOCRIT 26.3 % (37.9-51.0); HEMOGLOBIN 8.7 g/dL (13.5-17.0); HGB HCT DIFFERENCE -0.2; LYMPHOCYTES % (AUTO) 13.4 % (13-45); MEAN CORPUSCULAR HEMOGLOBIN 32.3 pg (27.0-33.4); MEAN CORPUSCULAR HGB CONC 33.2 g/dL (32.0-36.0); MEAN CORPUSCULAR VOLUME 97 fl (80-97); MONOCYTES % (AUTO) 9.5 % (3-13); SEGMENTED NEUTROPHILS % (AUTO) 66.4 % (42-78); WHITE BLOOD COUNT 6.5 10^3/uL (4.0-10.5)
[2016-12-15 06:57] LABS: ANION GAP 15 (5-19); BLOOD UREA NITROGEN 54 mg/dL (7-20); CALCIUM 9.5 mg/dL (8.4-10.2); CARBON DIOXIDE 25 mmol/L (22-30); CHLORIDE 99 mmol/L (98-107); CREATININE RESULT 8.66 mg/dL (0.52-1.25); GLUCOSE 72 mg/dL (75-110); POTASSIUM 5.7 mmol/L (3.6-5.0); SODIUM 139.2 mmol/L (137-145)
[2016-12-15 07:08] LABS: ANISOCYTOSIS 3+; OVALOCYTES SLIGHT; POIKILOCYTOSIS SLIGHT; TEAR DROP CELLS SLIGHT
[2016-12-15 07:09] LABS: HYPOCHROMASIA 1+
--- NOTE | 2016-12-15 09:10 | PDOC CONSULTATION ---
Consultation Consult Date: 12/14/16 Attending physician:: REAGAN HANSEN Consult reason:: non cardiac chest pain History of Present Illness Admission Date/PCP: 12/13/16 14:27 FEI ZULETA MD History of Present Illness: I was asked to see this patient by Dr Zuleta. patient was admitted and seen by Cardiology, it was recommended that patient have a GI consult due to ongoing issues Dr Zuleta requested an EGD to rule out for possible peptic ulcer disease patient does have some GERD, denies any melena there is no nausea or vomiting patient denies any early satiety does have anemia, and nephrology is following the patient as well Past Medical History Cardiac Medical History: Reports: Congestive Heart Failure, Coronary Artery Disease Pulmonary Medical History: EENT Medical History: Reports: Cataracts, Other - Glaucoma Neurological Medical History: Endocrine Medical History: Reports: Diabetes Mellitus Type 2 Renal/ Medical History: Reports: End Stage Renal Disease GI Medical History: Reports: Gastroesophageal Reflux Disease, Other - Lap [place] Musculoskeltal Medical History: Denies: Arthritis Psychiatric Medical History: Reports: Depression, Other - Anxiety Hematology: Reports: Anemia, Other - Glaucoma Past Surgical History Past Surgical History: Reports: Orthopedic Surgery - Right big toe amputation in 2014, left third and fourth toe amputations, Vascular Surgery, Other - Neck surgery in 2012 Social History Smoking Status: Former Smoker Number of Years Smokin Last Time Smoked: 06/06/1986 Frequency of Alcohol Use: None Hx Recreational Drug Use: No Hx Prescription Drug Abuse: No - Advance Directive Resuscitation Status: Full Code Family History Family History: Reviewed & Not Pertinent Parental Family History Reviewed: Yes Children Family History Reviewed: Unknown Sibling(s) Family History Reviewed.: Unknown Medication/Allergy Home Medications: Amlodipine Besylate [Norvasc 5 mg Tablet] 10 mg PO DAILY 12/13/16 Aspirin [Adult Low Dose Aspirin EC] 81 mg PO DAILY 12/13/16 Atorvastatin Calcium [Lipitor 20 mg Tablet] 20 mg PO DAILY 12/13/16 Insulin Glargine,Hum.rec.anlog [Lantus Solostar] 5 unit SQ QPM 12/13/16 Nitroglycerin [Nitrostat 0.4 mg (1/150 Gr) Tabs 25/Bottle] 0.4 mg SL Q5MP PRN Pregabalin [Lyrica 25 mg Capsule] 25 mg PO DAILY 12/13/16 Tapentadol Hydrochloride [Nucynta] 50 mg PO BID 12/13/16 Amlodipine Besylate [Norvasc 5 mg Tablet] 5 mg PO Q12 #60 tablet 12/15/16 Calcium Acetate [Phoslo 667 mg Capsule] 1,334 mg PO MEALS #0 capsule 12/15/16 Lansoprazole [Prevacid 15 mg Odt Tablet] 15 mg PO Q6AM #30 tab. 12/15/16 Allergies/Adverse Reactions: vancomycin [Vancomycin] Adverse Reaction (Unknown, Verified 12/13/16 13:07) molina syndrome Review of Systems Constitutional: ABSENT: fever(s), headache(s), night sweats, weakness Eyes: ABSENT: visual disturbances Ears: ABSENT: hearing changes Nose, Mouth, and Throat: ABSENT: sore throat Cardiovascular: ABSENT: orthropnea, palpitations Respiratory: ABSENT: dyspnea, hemoptysis Gastrointestinal: ABSENT: diarrhea, melena Genitourinary: ABSENT: dysuria, hematuria Musculoskeletal: ABSENT: deformity, joint swelling Integumentary: ABSENT: pruritus Neurological: ABSENT: numbness, syncope, tingling Endocrine: ABSENT: heat intolerance, polydipsia, polyphagia, polyuria Hematologic/Lymphatic: ABSENT: easy bruising Physical Exam Vital Signs: Temp Pulse Resp BP Pulse Ox 98.4 F 57 L 19 163/65 H 95 12/15/16 08:17 12/15/16 08:17 12/15/16 08:17 12/15/16 08:17 12/15/16 08:17 Intake & Output 12/14/16 12/15/16 12/16/16 06:59 06:59 06:59 Intake Total 165 572 Output Total 0 Balance 165 572 Weight 86.1 kg 86.9 kg General appearance: PRESENT: no acute distress, well-developed Head exam: PRESENT: atraumatic, normocephalic Eye exam: PRESENT: EOMI, PERRLA. ABSENT: nystagmus, scleral icterus Mouth exam: PRESENT: moist, neck supple Throat exam: ABSENT: tonsillar exudate Neck exam: ABSENT: meningismus, tenderness, thyromegaly Respiratory exam: PRESENT: symmetrical, unlabored. ABSENT: rales, wheezes Cardiovascular exam: PRESENT: RRR, +S1, +S2 Vascular exam: ABSENT: pallor GI/Abdominal exam: PRESENT: soft. ABSENT: rebound, rigid, tenderness Extremities exam: ABSENT: joint swelling Musculoskeletal exam: PRESENT: full ROM Neurological exam: PRESENT: oriented to time, oriented to situation, reflexes normal Skin exam: PRESENT: normal color. ABSENT: mottled, pallor, petechiae Results Laboratory Results: 12/15/16 05:36 12/15/16 05:36 12/14/16 12/15/16 12/15/16 18:50 05:36 05:36 WBC 6.5 RBC 2.70 L Hgb 8.7 L Hct 26.3 L MCV 97 MCH 32.3 MCHC 33.2 RDW 24.0 H Plt Count 145 L Seg Neutrophils % 66.4 Lymphocytes % 13.4 Monocytes % 9.5 Eosinophils % 9.6 H Basophils % 1.1 Absolute Neutrophils 4.3 Absolute Lymphocytes 0.9 Absolute Monocytes 0.6 Absolute Eosinophils 0.6 Absolute Basophils 0.1 Sodium 139.2 Potassium 5.7 H Chloride 99 Carbon Dioxide 25 Anion Gap 15 BUN 54 H Creatinine 8.66 H Est GFR ( Amer) 8 L Est GFR (Non-Af Amer) 6 L Glucose 72 L Calcium 9.5 Urine Color YELLOW Urine Appearance CLEAR Urine pH 9.0 Ur Specific [place] 1.005 Urine Protein >=500 H Urine Glucose (UA) 150 H Urine Ketones NEGATIVE Urine Blood NEGATIVE Urine Nitrite NEGATIVE Ur Leukocyte Esterase NEGATIVE Urine WBC (Auto) 0 Urine RBC (Auto) 2 12/13/16 12/13/16 12/14/16 18:15 18:15 00:13 Creatine Kinase 193 H 211 H CK-MB (CK-2) 3.09 Troponin I 0.073 12/14/16 12/14/16 12/14/16 00:13 06:15 06:15 Creatine Kinase 192 H CK-MB (CK-2) 2.66 2.52 Troponin I 0.079 0.081 Impressions: Chest X-Ray 12/13/16 11:34 IMPRESSION: Cardiomegaly. No acute consolidations or pleural effusions are identified. Other findings as noted above Abdomen/Pelvis CT 12/14/16 00:00 IMPRESSION: 1. No acute findings in the abdomen or pelvis. 2. Stable 2 cm pleural-based mass in the right lower lobe. Assessment & Plan - Diagnosis (1) Atypical chest pain Is this a current diagnosis for this admission?: YesPlan: ? possible GI related disease will need EGD Risks, benefits and alternatives are discussed with the patient in detail further recommendations to follow (2) Anemia in chronic kidney disease (CKD) Qualifiers: Chronic kidney disease stage: on chronic dialysis Qualified Code(s): N18.6 - End stage renal disease; D63.1 - Anemia in chronic kidney disease; Z99.2 - Dependence on renal dialysis Is this a current diagnosis for this admission?: YesPlan: less likely due to be due to gross GI bleeding will continue to monitor - Time Time Spent: 50 to 70 Minutes
[2016-12-15] MEDS ORDERED: FENTANYL CITRATE INJ/PF 100 MCG/2 ML AMPUL ONE (09:21)
[2016-12-15] MEDS ORDERED: DIPHENHYDRAMINE HCL 50 MG/ML VIAL ONE (09:21)
[2016-12-15] MEDS ORDERED: FLUMAZENIL INJ 0.5 MG/5 ML VIAL IV ONE (09:21)
[2016-12-15] MEDS ORDERED: NALOXONE HCL INJ/PF 0.4 MG/1 ML SDV ONE (09:21)
[2016-12-15] MEDS ORDERED: ONDANSETRON HCL INJ/PF 4 MG/2 ML SDV ONE (09:21)
[2016-12-15] MEDS ORDERED: GLUCAGON,HUMAN RECOMB 1 MG INJ ONE (09:22)
[2016-12-15] MEDS ORDERED: EPINEPHRINE INJ 1 MG/10 ML DISP.SYRIN ONE (09:22)
[2016-12-15] MEDS: MIDAZOLAM 2 MG/2 ML INJ ONE ×2 (09:41→09:47)
--- NOTE | 2016-12-15 09:53 | Operative Report ---
Operative Report DATE OF SURGERY: 12/15/16 Operative Report: The risks benefits and alternatives of the procedure explained to the patient in detail and informed consent is obtained. A GIF Olympus video scope was inserted into the patient's mouth and hypopharynx, the esophagus is identified intubated and insufflated, the scope was then advanced through the esophagus stomach and duodenum, retroflexion maneuver is done, the esophagus stomach and first and second portions of the duodenum examined PREOPERATIVE DIAGNOSIS: Noncardiac chest pain POSTOPERATIVE DIAGNOSIS: Gastritis and duodenitis biopsies obtained. No ulcers noted OPERATION: EGD with biopsy SURGEON: REAGAN HANSEN ANESTHESIA: Moderate Sedation - 4 mg of Versed, 75 mcg of fentanyl. Conscious sedation monitoring time 30 minutes. TISSUE REMOVED OR ALTERED: Gastric mucosal specimens obtained to rule out Helicobacter pylori COMPLICATIONS: None. ESTIMATED BLOOD LOSS: None. INTRAOPERATIVE FINDINGS: As described above. PROCEDURE: Patient tolerated the procedure well. No immediate postprocedure complications are noted. Patient discharged back to the room in good condition. Discharge diet: Regular. Discharge activity: Regular. 2-3 week follow-up to discuss findings. We will await pathology. Case discussed with Dr. Baez.
[2016-12-15] MEDS: AMLODIPINE BESYLATE 5 MG TABLET PO SCH (14:28)
[2016-12-15] MEDS: CARVEDILOL 3.125 MG TABLET PO SCH ×2 (14:28→17:22)
[2016-12-15] MEDS: CALCIUM ACETATE 667 MG CAPSULE PO SCH ×2 (14:28→17:25)
[2016-12-15] MEDS: ASPIRIN 81 MG TABLET, ENT COATED PO SCH (14:28)
--- NOTE | 2016-12-15 16:24 | PDOC PROGRESS REPORT ---
Subjective Progress Note for:: 12/15/16 Subjective:: Patient is currently doing well. Patient's to have a no chest pain no shortness of the breath. Patient scheduled for the endoscopy today Physical Exam Vital Signs: Temp Pulse Resp BP Pulse Ox 97.6 F 57 L 17 154/62 H 98 12/15/16 11:54 12/15/16 14:00 12/15/16 11:54 12/15/16 11:54 12/15/16 11:54 Intake & Output 12/14/16 12/15/16 12/16/16 06:59 06:59 06:59 Intake Total 165 572 50 Output Total 0 0 Balance 165 572 50 Weight 86.1 kg 86.9 kg General appearance: PRESENT: no acute distress, well-developed, well-nourished Head exam: PRESENT: atraumatic, normocephalic Eye exam: PRESENT: conjunctiva pink, EOMI, PERRLA. ABSENT: scleral icterus Ear exam: PRESENT: normal external ear exam Mouth exam: PRESENT: moist, tongue midline Neck exam: PRESENT: full ROM. ABSENT: carotid bruit, JVD, lymphadenopathy, thyromegaly Respiratory exam: PRESENT: clear to auscultation john Cardiovascular exam: PRESENT: RRR. ABSENT: diastolic murmur, rubs, systolic murmur Pulses: PRESENT: normal dorsalis pedis pul, +2 pedal pulses bilateral Vascular exam: PRESENT: normal capillary refill GI/Abdominal exam: PRESENT: normal bowel sounds, soft. ABSENT: distended, guarding, mass, organolmegaly, rebound, tenderness Rectal exam: PRESENT: deferred Neurological exam: PRESENT: alert, awake, oriented to person, oriented to place , oriented to time, oriented to situation, CN II-XII grossly intact. ABSENT: motor sensory deficit Psychiatric exam: PRESENT: appropriate affect, normal mood. ABSENT: homicidal ideation, suicidal ideation Skin exam: PRESENT: dry, intact, warm. ABSENT: cyanosis, rash Results Laboratory Results: 12/15/16 05:36 12/15/16 05:36 12/14/16 12/15/16 12/15/16 18:50 05:36 05:36 WBC 6.5 RBC 2.70 L Hgb 8.7 L Hct 26.3 L MCV 97 MCH 32.3 MCHC 33.2 RDW 24.0 H Plt Count 145 L Seg Neutrophils % 66.4 Lymphocytes % 13.4 Monocytes % 9.5 Eosinophils % 9.6 H Basophils % 1.1 Absolute Neutrophils 4.3 Absolute Lymphocytes 0.9 Absolute Monocytes 0.6 Absolute Eosinophils 0.6 Absolute Basophils 0.1 Sodium 139.2 Potassium 5.7 H Chloride 99 Carbon Dioxide 25 Anion Gap 15 BUN 54 H Creatinine 8.66 H Est GFR ( Amer) 8 L Est GFR (Non-Af Amer) 6 L Glucose 72 L Calcium 9.5 Urine Color YELLOW Urine Appearance CLEAR Urine pH 9.0 Ur Specific [place] 1.005 Urine Protein >=500 H Urine Glucose (UA) 150 H Urine Ketones NEGATIVE Urine Blood NEGATIVE Urine Nitrite NEGATIVE Ur Leukocyte Esterase NEGATIVE Urine WBC (Auto) 0 Urine RBC (Auto) 2 12/13/16 12/13/16 12/14/16 18:15 18:15 00:13 Creatine Kinase 193 H 211 H CK-MB (CK-2) 3.09 Troponin I 0.073 12/14/16 12/14/16 12/14/16 00:13 06:15 06:15 Creatine Kinase 192 H CK-MB (CK-2) 2.66 2.52 Troponin I 0.079 0.081 Impressions: Chest X-Ray 12/13/16 11:34 IMPRESSION: Cardiomegaly. No acute consolidations or pleural effusions are identified. Other findings as noted above Abdomen/Pelvis CT 12/14/16 00:00 IMPRESSION: 1. No acute findings in the abdomen or pelvis. 2. Stable 2 cm pleural-based mass in the right lower lobe. Assessment & Plan - Diagnosis (1) End stage renal disease Is this a current diagnosis for this admission?: YesPlan: Scheduled for the hemodialysis today (2) Unstable angina Plan: Currently all stablePer cardiology most likely a from the GI (3) Chest pain Qualifiers: Chest pain type: unspecified Qualified Code(s): R07.9 - Chest pain, unspecified Is this a current diagnosis for this admission?: YesPlan: All cardiac workup is stable discussed with the Dr. 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 mellitus snf insulin use: with 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 manager use Qualified Code(s): E11.42 - Type 2 diabetes mellitus with diabetic polyneuropathy; Z79.4 - 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 (current) use of insulin Is this a current diagnosis for this admission?: YesPlan: Continues current medications (6) Hypertension Qualifiers: Hypertension type: essential hypertension Qualified Code(s): I10 - Essential (primary) hypertension Is this a current diagnosis for this admission?: YesPlan: Continues current medications (7) Gastroesophageal reflux disease Qualifiers: Esophagitis presence: without esophagitis Qualified Code(s): K21.9 - Gastro-esophageal reflux disease without esophagitis Is this a current diagnosis for this admission?: YesPlan: Continues to PPI and schedule for the endoscopy today - Time Time Spent with patient: 15-24 minutes Medications reviewed and adjusted accordingly: Yes Anticipated discharge: Home Within: within 24 hours - Inpatient Certification Medical Necessity: Need Close Monitoring Due to Risk of Patient Decompensation Post Hospital Care: D/C Gift Consultant Documentation - Plan Summary Plan Summary: Continues to current medications
[2016-12-15 17:48] VITALS: BP 163/65
--- NOTE | 2016-12-15 19:40 | PDOC PROGRESS REPORT ---
Subjective Progress Note for:: 12/15/16 Subjective:: I saw the patient during dialysis at around 4:10 PM this afternoon. Patient has been stable on dialysis and tolerated the procedure without any problems. Today he also underwent an EGD and was found to have gastritis and duodenitis. He is otherwise stable. Denies any more epigastric nor substernal chest pains. Denies any shortness of breath and does not have any other complaints. Physical Exam Vital Signs: Temp Pulse Resp BP Pulse Ox 98.5 F 59 L 13 163/65 H 100 12/15/16 17:44 12/15/16 17:44 12/15/16 17:44 12/15/16 17:44 12/15/16 17:44 Intake & Output 12/14/16 12/15/16 12/16/16 06:59 06:59 06:59 Intake Total 165 572 60 Output Total 0 1800 Balance 165 572 -1740 Weight 86.1 kg 86.9 kg Vital signs during dialysis when I saw him: Pressure 157/74, heart rate of 55, blood flow rate of 400 mL/min okay, dialysate flow rate of 800 mL/min. Exam: General appearance: PRESENT: no acute distress, cooperative, well-developed, well-nourished Head exam: PRESENT: atraumatic, normocephalic Eye exam: PRESENT: conjunctiva pink, PERRLA. ABSENT: scleral icterus Neck exam: ABSENT: JVD Respiratory exam: PRESENT: Diminished breath sounds. ABSENT: crackles, rales, rhonchi, unlabored, wheezes okay Cardiovascular exam: PRESENT: Regular rate rhythm -+S1, +S2. ABSENT: diastolic murmur, systolic murmur GI/Abdominal exam: PRESENT: normal bowel sounds, soft. ABSENT: guarding, mass, tenderness Extremities exam: ABSENT: No edema Neurological exam: PRESENT: alert, awake, oriented to person, place and time. Skin exam: PRESENT: dry, warm, Results Laboratory Results: 12/15/16 05:36 12/15/16 05:36 12/15/16 12/15/16 05:36 05:36 WBC 6.5 RBC 2.70 L Hgb 8.7 L Hct 26.3 L MCV 97 MCH 32.3 MCHC 33.2 RDW 24.0 H Plt Count 145 L Seg Neutrophils % 66.4 Lymphocytes % 13.4 Monocytes % 9.5 Eosinophils % 9.6 H Basophils % 1.1 Absolute Neutrophils 4.3 Absolute Lymphocytes 0.9 Absolute Monocytes 0.6 Absolute Eosinophils 0.6 Absolute Basophils 0.1 Sodium 139.2 Potassium 5.7 H Chloride 99 Carbon Dioxide 25 Anion Gap 15 BUN 54 H Creatinine 8.66 H Est GFR ( Amer) 8 L Est GFR (Non-Af Amer) 6 L Glucose 72 L Calcium 9.5 12/13/16 12/13/16 12/14/16 18:15 18:15 00:13 Creatine Kinase 193 H 211 H CK-MB (CK-2) 3.09 Troponin I 0.073 12/14/16 12/14/16 12/14/16 00:13 06:15 06:15 Creatine Kinase 192 H CK-MB (CK-2) 2.66 2.52 Troponin I 0.079 0.081 Impressions: Chest X-Ray 12/13/16 11:34 IMPRESSION: Cardiomegaly. No acute consolidations or pleural effusions are identified. Other findings as noted above Abdomen/Pelvis CT 12/14/16 00:00 IMPRESSION: 1. No acute findings in the abdomen or pelvis. 2. Stable 2 cm pleural-based mass in the right lower lobe. Assessment & Plan - Diagnosis (1) End stage renal disease Is this a current diagnosis for this admission?: YesPlan: We did dialysis today for 3 hours, using the patient's AV fistula, with 2 potassium bath, blood flow rate of 400 mL per minute, dialysate flow rate of 800 mL per minute, ultrafiltration 1.5-2 L, no heparin and Procrit with 20,000 units during dialysis intravenously. (2) Anemia in chronic kidney disease (CKD) Qualifiers: Chronic kidney disease stage: on chronic dialysis Qualified Code(s): N18.6 - End stage renal disease; D63.1 - Anemia in chronic kidney disease; Z99.2 - Dependence on renal dialysis Is this a current diagnosis for this admission?: YesPlan: We gave Procrit 20,000 units IV during dialysis today. (3) Hyperkalemia Is this a current diagnosis for this admission?: Yes (4) Hypertension Qualifiers: Hypertension type: essential hypertension Qualified Code(s): I10 - Essential (primary) hypertension Is this a current diagnosis for this admission?: Yes (5) Atypical chest pain Is this a current diagnosis for this admission?: YesPlan: Improved. EGD showed gastritis and duodenitis. Management deferred to primary care provider. (6) Diabetes mellitus Qualifiers: Diabetes mellitus type: type 2 Diabetes mellitus complication status: with neurologic complications Diabetes mellitus complication detail: with polyneuropathy Diabetes mellitus ferry terminal agent insulin use: with fpc use Qualified Code(s): E11.42 - Type 2 diabetes mellitus with diabetic polyneuropathy; Z79.4 - care home (current) use of insulin Is this a current diagnosis for this admission?: Yes - Notes Notes: From nephrology standpoint I think the patient can be discharged home either tonight or tomorrow per primary care provider's discretion. He is to continue his dialysis at [facility] (formerly [facility]) and next dialysis will be on Tuesday on his regular scheduled time. - Time Time with patient: 15-25 minutes
--- NOTE | 2016-12-16 10:13 | PDOC DISCHARGE SUMMARY ---
General - Admit/Disc Date/PCP Admission Date/Primary Care Provider: 12/13/16 14:27 FEI ZULETA MD Discharge Date: 12/16/16 - Discharge Diagnosis (1) End stage renal disease Is this a current diagnosis for this admission?: YesSummary: s/p hd (2) Unstable angina Summary: stable and f/u cardilogy recnt stress test was neg (3) Chest pain Is this a current diagnosis for this admission?: YesSummary: all r/o acs seen by dr santos and f/u with cardilogy (4) Coronary artery disease Is this a current diagnosis for this admission?: YesSummary: Currently all stableFollow with the cardiology as per discussed with the cardiology patient's currently denied any chest pain (5) Diabetes mellitus Is this a current diagnosis for this admission?: YesSummary: Continues current medications (6) Hypertension Is this a current diagnosis for this admission?: YesSummary: Patient's Norvasc was changed 5 mg twice a day per cardiology (7) Gastroesophageal reflux disease Is this a current diagnosis for this admission?: YesSummary: Status post EGD (8) Lung mass Is this a current diagnosis for this admission?: YesSummary: The pleural-based 2 cm mass make appointment to see the oncology outpatient need a further PET scan for evaluations - Additional Information Resuscitation Status: Full Code Discharge Diet: Diabetic Discharge Activity: Activity As Tolerated Home Medications: Amlodipine Besylate [Norvasc 5 mg Tablet] 10 mg PO DAILY 12/13/16 Aspirin [Adult Low Dose Aspirin EC] 81 mg PO DAILY 12/13/16 Atorvastatin Calcium [Lipitor 20 mg Tablet] 20 mg PO DAILY 12/13/16 Insulin Glargine,Hum.rec.anlog [Lantus Solostar] 5 unit SQ QPM 12/13/16 Nitroglycerin [Nitrostat 0.4 mg (1/150 Gr) Tabs 25/Bottle] 0.4 mg SL Q5MP PRN Pregabalin [Lyrica 25 mg Capsule] 25 mg PO DAILY 12/13/16 Tapentadol Hydrochloride [Nucynta] 50 mg PO BID 12/13/16 Amlodipine Besylate [Norvasc 5 mg Tablet] 5 mg PO Q12 #60 tablet 12/15/16 Calcium Acetate [Phoslo 667 mg Capsule] 1,334 mg PO MEALS #0 capsule 12/15/16 Lansoprazole [Prevacid 15 mg Odt Tablet] 15 mg PO Q6AM #30 tab.eloy. 12/15/16 History of Present Illness History of Present Illness: CHAPITO LESLIE is a 61 year old male This 61-year-old male with a history of the end-stage renal disease on hemodialysis history of the hypertensions and a history of the coronary disease and multiple other comorbidity came to the emergency department with a complaint of chest pain this morning on and off and relieved with the nitroglycerin. Patient's initial EKG some T-wave changes and troponin was 0.077 which is normal for the chronic kidney disease As per ER physician discussed with the [facility] cardiology and suggest to admit the patient here and if the patient's to continues with chest pain to the cardiac cath and he will transfer the patient's body of the patient's chest pain -free discharge home and follow outpatients for the cardiac cath and further evaluations Hospital Course Hospital Course: This is a 61-year-old male with a significant multiple medical problems as above came to the emergency department with epigastric pain chest pains and initial workup was all negative for the cardiac standpoint . Admitting in the IMCU rule out the acute coronary syndrome and cardiology was consultedAnd suggest the patient's noncardiac chest pain and patient have a recently a stress test done in the [facility] and was all stable and according to the [facility] cardiology if the patient's rule out acute coronary syndromes follow as outpatients for further workup Patient also underwent further GI evaluations which is also stable Patient underwent for the hemodialysis as per schedule and patients remained stable denied any chest pain and patient's otherwise put on a PPI Discussed with the about the patient's current condition and will follow outpatients Physical Exam Vital Signs: Temp Pulse Resp BP Pulse Ox 98.5 F 59 L 13 163/65 H 100 12/15/16 17:44 12/15/16 17:44 12/15/16 17:44 12/15/16 17:44 12/15/16 17:44 Intake & Output 12/15/16 12/16/16 12/17/16 06:59 06:59 06:59 Intake Total 572 60 Output Total 1800 Balance 572 -1740 Weight 86.9 kg General appearance: PRESENT: no acute distress, well-developed, well-nourished Head exam: PRESENT: atraumatic, normocephalic Eye exam: PRESENT: conjunctiva pink, EOMI, PERRLA. ABSENT: scleral icterus Ear exam: PRESENT: normal external ear exam Mouth exam: PRESENT: moist, tongue midline Neck exam: PRESENT: full ROM. ABSENT: carotid bruit, JVD, lymphadenopathy, thyromegaly Respiratory exam: PRESENT: clear to auscultation john Cardiovascular exam: PRESENT: RRR. ABSENT: diastolic murmur, rubs, systolic murmur Pulses: PRESENT: normal dorsalis pedis pul, +2 pedal pulses bilateral Vascular exam: PRESENT: normal capillary refill GI/Abdominal exam: PRESENT: normal bowel sounds, soft. ABSENT: distended, guarding, mass, organolmegaly, rebound, tenderness Rectal exam: PRESENT: deferred Neurological exam: PRESENT: alert, awake, oriented to person, oriented to place , oriented to time, oriented to situation, CN II-XII grossly intact. ABSENT: motor sensory deficit Psychiatric exam: PRESENT: appropriate affect, normal mood. ABSENT: homicidal ideation, suicidal ideation Skin exam: PRESENT: dry, intact, warm. ABSENT: cyanosis, rash Results Laboratory Results: 12/15/16 05:36 12/15/16 05:36 12/13/16 12/13/16 12/14/16 18:15 18:15 00:13 Creatine Kinase 193 H 211 H CK-MB (CK-2) 3.09 Troponin I 0.073 12/14/16 12/14/16 12/14/16 00:13 06:15 06:15 Creatine Kinase 192 H CK-MB (CK-2) 2.66 2.52 Troponin I 0.079 0.081 Impressions: Chest X-Ray 12/13/16 11:34 IMPRESSION: Cardiomegaly. No acute consolidations or pleural effusions are identified. Other findings as noted above Abdomen/Pelvis CT 12/14/16 00:00 IMPRESSION: 1. No acute findings in the abdomen or pelvis. 2. Stable 2 cm pleural-based mass in the right lower lobe. Plan Time Spent: Greater than 30 Minutes - Patient is currently doing fair p.o. intake is good patient walking the hallway without any problems and patient with no chest pain no epigastric pains. Patient CT abdomen and pelvis was negative for any acute finding except patient have a some lung mass in the pleural base which follow outpatients PET scans
== END 2016-12-15 18:45 | disposition home or self-care (01) | DRG 302 ==
LOC: ER 11:30 → 3S 13:58 → INTOOBSV 14:27 → OBSVTOIN 14:27 → UNDOADMOB 14:27 → EH 14:27 → 3S 17:45 → EH 17:45
PROVIDERS: ADMIT Family Medicine; ATTEND Family Medicine
PROC: 3E0F73Z Introduction of Anti-inflammatory into Respiratory Tract, Via Natural or Artificial Opening (ICD-10-PCS; 2016-12-14)
PROC: 0DB68ZX Excision of Stomach, Via Natural or Artificial Opening Endoscopic, Diagnostic (ICD-10-PCS; 2016-12-15)
PROC: 5A1D00Z (ICD-10-PCS; 2016-12-15)
PROC: 0DB58ZX Excision of Esophagus, Via Natural or Artificial Opening Endoscopic, Diagnostic (ICD-10-PCS; principal; 2016-12-15 09:30)
DX: I25.110 Atherosclerotic heart disease of native coronary artery with unstable angina pectoris (principal); N18.6 End stage renal disease; I13.2 Hypertensive heart and chronic kidney disease with heart failure and with stage 5 chronic kidney disease, or end stage renal disease; I50.32 Chronic diastolic (congestive) heart failure; E11.22 Type 2 diabetes mellitus with diabetic chronic kidney disease; K21.9 Gastro-esophageal reflux disease without esophagitis; R91.8 Other nonspecific abnormal finding of lung field; D63.1 Anemia in chronic kidney disease; F32.9 Major depressive disorder, single episode, unspecified; F41.9 Anxiety disorder, unspecified; E87.5 Hyperkalemia; E11.42 Type 2 diabetes mellitus with diabetic polyneuropathy; I45.10 Unspecified right bundle-branch block; I44.0 Atrioventricular block, first degree; K29.70 Gastritis, unspecified, without bleeding; K29.80 Duodenitis without bleeding; Z99.2 Dependence on renal dialysis; Z79.82 Long term (current) use of aspirin; Z79.4 Long term (current) use of insulin; Z79.899 Other long term (current) drug therapy; Z98.49 Cataract extraction status, unspecified eye; Z90.49 Acquired absence of other specified parts of digestive tract; Z89.411 Acquired absence of right great toe; Z89.421 Acquired absence of other right toe(s); Z87.891 Personal history of nicotine dependence; Z88.3 Allergy status to other anti-infective agents; Z83.3 Family history of diabetes mellitus; Z82.49 Family history of ischemic heart disease and other diseases of the circulatory system
CPT/HCPCS: 36415; 43239; 71010; 74176; 80048; 80053; 81001; 82550; 82553; 82962; 84484; 85025; 85610; 85730; 88305; 88342; 93005; 93010; 96374; 99285; J0171; J1200; J1610; J1644; J1815; J2250; J2310; J2405; J3010; J3490; Q4081; S0028

== ENCOUNTER 2016-12-21 02:51 | Emergency (ER) | payer OTHER, MEDICARE ==
[2016-12-21 03:41] LABS: ABSOLUTE BASOPHILS # (AUTO) 0.1 10^3/uL (0.0-0.2); ABSOLUTE EOSINOPHILS # (AUTO) 1.3 10^3/uL (0.0-0.6); ABSOLUTE MONOCYTES (AUTO) 0.8 10^3/uL (0.1-1.4); ABSOLUTE NEUT (AUTO) 4.4 10^3/uL (1.7-8.2); BASOPHILS % (AUTO) 0.7 % (0-2); EOSINOPHILS % (AUTO) 17.7 % (0-6); HEMATOCRIT 26.1 % (37.9-51.0); HEMOGLOBIN 8.5 g/dL (13.5-17.0); HGB HCT DIFFERENCE -0.6; LYMPHOCYTES % (AUTO) 13.1 % (13-45); MEAN CORPUSCULAR HEMOGLOBIN 32.2 pg (27.0-33.4); MEAN CORPUSCULAR HGB CONC 32.5 g/dL (32.0-36.0); MEAN CORPUSCULAR VOLUME 99 fl (80-97); MONOCYTES % (AUTO) 10.7 % (3-13); RED BLOOD COUNT 2.63 10^6/uL (4.35-5.55); RED CELL DISTRIBUTION WIDTH 24.3 % (11.5-14.0); SEGMENTED NEUTROPHILS % (AUTO) 57.8 % (42-78); WHITE BLOOD COUNT 7.6 10^3/uL (4.0-10.5)
--- NOTE | 2016-12-21 03:58 | RADIOLOGY REPORT (SQ) ---
EXAM DESCRIPTION: CHEST SINGLE VIEW COMPLETED DATE/TIME: 12/21/2016 3:50 am REASON FOR STUDY: shortness of breath COMPARISON: 12/13/2016. NUMBER OF VIEWS: One view. TECHNIQUE: Single frontal radiographic view of the chest acquired. LIMITATIONS: None. FINDINGS: LUNGS AND PLEURA: No opacities, masses or pneumothorax. No pleural effusion. MEDIASTINUM AND HILAR STRUCTURES: No masses. Contour normal. HEART AND VASCULAR STRUCTURES: Heart enlarged without failure. Normal vasculature. BONES: No acute findings. HARDWARE: None in the chest. OTHER: No other significant finding. IMPRESSION: HEART ENLARGED WITHOUT FAILURE. NO OTHER SIGNIFICANT RADIOGRAPHIC FINDING IN THE CHEST. TECHNICAL DOCUMENTATION: JOB ID: [id number] [employer]- All Rights Reserved
[2016-12-21 04:27] LABS: ANISOCYTOSIS 3+; OVALOCYTES SLIGHT; POIKILOCYTOSIS 1+; TARGET CELLS 1+; TEAR DROP CELLS SLIGHT
[2016-12-21 04:51] LABS: ALANINE AMINOTRANSFERASE 28 U/L (21-72); ALBUMIN 4.2 g/dL (3.5-5.0); ALKALINE PHOSPHATASE 60 U/L (38-126); ANION GAP 18 (5-19); ASPARTATE AMINO TRANSFERASE 24 U/L (17-59); BILIRUBIN,DIRECT 0.6 mg/dL (0.0-0.4); BILIRUBIN,TOTAL 0.8 mg/dL (0.2-1.3); BLOOD UREA NITROGEN 81 mg/dL (7-20); CALCIUM 8.6 mg/dL (8.4-10.2); CARBON DIOXIDE 19 mmol/L (22-30); CHLORIDE 102 mmol/L (98-107); CREATINE KINASE 252 U/L (55-170); GLUCOSE 81 mg/dL (75-110); TOTAL PROTEIN 7.8 g/dL (6.3-8.2)
[2016-12-21 04:56] LABS: POTASSIUM 6.8 mmol/L (3.6-5.0)
[2016-12-21 05:02] LABS: CREATINE KINASE MB 3.39 ng/mL (<4.55)
[2016-12-21 05:06] LABS: TROPONIN I 0.234 ng/mL
[2016-12-21] MEDS ORDERED: ONDANSETRON HCL INJ/PF 4 MG/2 ML SDV IV ONE (05:12)
[2016-12-21] MEDS ORDERED: HYDROMORPHONE HCL INJ/PF 2 MG/ML AMPULE IV ONE (05:12)
[2016-12-21] MEDS ORDERED: FUROSEMIDE INJ/PF 100 MG/10 ML SDV IV ONE (05:12)
[2016-12-21] MEDS ORDERED: OXYCODONE HCL IR 5 MG TABLET PO ONE (05:12)
[2016-12-21] MEDS ORDERED: SODIUM POLYSTYRENE SULFONATE 15 GM/60 ML PO ONE (05:20)
[2016-12-21] MEDS ORDERED: DEXTROSE 50%-WATER 25 GM/50 ML DISP.SYRIN IV ONE (05:21)
[2016-12-21] MEDS ORDERED: CALCIUM GLUCONATE 1000 MG/10 ML INJ IV ONE (05:21)
[2016-12-21] MEDS ORDERED: INSULIN REG, HUMAN 100 UNIT/ML 3 ML VIAL (PYX) IV ONE (05:22)
--- NOTE | 2016-12-21 05:24 | ER Document Report ---
ED Medical Screen (RME) - General Chief Complaint: Shortness Of Breath Stated Complaint: RESPIRATORY DISTRESS Time Seen by Provider: 12/21/16 05:04 Mode of Arrival: Medic Information source: Patient TRAVEL OUTSIDE OF THE [place] IN LAST 30 DAYS: No - HPI Notes: 12/21/16 05:24 61-year-old male end-stage renal disease who missed dialysis yesterday as he had ran out of his chronic oxycodone that he takes 10 mg 3 times a day. Patient at home had worsening of his chronic back and upper abdomen pain with associated nausea, diarrhea. Patient denies any chest pain, but this morning reports dyspnea and orthopnea and is unable to hold still. Patient was just discharged last week after admission for chest pain and unstable angina. Patient is given Zofran for nausea, Dilaudid IV for narcotic withdrawal with his usual p.o. dose of 10 mg oxycodone, but was noted to be hyperkalemic with a creatinine 6.8 and have an elevated troponin beyond his baseline. Creatinines consistent with chronic renal insufficiency, but the patient may need a repeat troponin level to rule out cardiac etiology. Patient will need dialysis today, but needs emergent treatment for his hyperkalemia with IV Lasix , Kayexalate, calcium chloride, regular insulin, and D50. Patient will need appropriate diuresis and dialysis. Lungs showed scant rales. EKG shows no obvious STEMI. 12/21/16 05:29 - Related Data Allergies/Adverse Reactions: vancomycin [Vancomycin] Adverse Reaction (Unknown, Verified 12/21/16 03:15) molina syndrome Past Medical History - Social History Chew tobacco use (# tins/day): No Frequency of alcohol use: None Drug Abuse: None - Past Medical History Cardiac Medical History: Reports: Hx Congestive Heart Failure, Hx Coronary Artery Disease Pulmonary Medical History: Neurological Medical History: Endocrine Medical History: Reports: Hx Diabetes Mellitus Type 2 Renal/ Medical History: Reports: Hx End Stage Renal Disease - Dialysis dependent, Hx Hemodialysis, Hx Renal Insufficiency. Denies: Hx Peritoneal Dialysis GI Medical History: Reports: Hx Gastroesophageal Reflux Disease Musculoskeltal Medical History: Denies Hx Arthritis Psychiatric Medical History: Reports: Hx Depression Past Surgical History: Reports: Hx Orthopedic Surgery, Hx Vascular Surgery, Other - Neck surgery in 2013 - Immunizations Hx Diphtheria, Pertussis, Tetanus Vaccination: Yes Physical Exam - Vital signs Vitals: Temp Pulse Resp BP Pulse Ox 98.6 F 62 20 179/75 H 97 12/21/16 03:02 12/21/16 03:02 12/21/16 03:02 12/21/16 03:02 12/21/16 03:02 Course - Vital Signs Vital signs: Temp Pulse Resp BP Pulse Ox 98.6 F 62 26 H 171/68 H 98 12/21/16 03:02 12/21/16 03:02 12/21/16 05:00 12/21/16 04:02 12/21/16 05:00 - Laboratory Result Diagrams: 12/21/16 03:24 12/21/16 04:22 Laboratory results interpreted by me: 12/21/16 12/21/16 03:24 04:22 RBC 2.63 L Hgb 8.5 L Hct 26.1 L MCV 99 H RDW 24.3 H Plt Count 139 L Eosinophils % 17.7 H Absolute Eosinophils 1.3 H Potassium 6.8 H* Carbon Dioxide 19 L BUN 81 H Creatinine 11.70 H Est GFR ( Amer) 5 L Est GFR (Non-Af Amer) 4 L Direct Bilirubin 0.6 H Creatine Kinase 252 H
--- NOTE | 2016-12-21 07:48 | EKG REPORT ---
SEVERITY:- ABNORMAL ECG - SINUS OR ECTOPIC ATRIAL RHYTHM FIRST DEGREE AV BLOCK RIGHT BUNDLE BRANCH BLOCK : Confirmed by: Rachid Eugene 21-Dec-2016 07:47:45
[2016-12-21 08:29] LABS: ANION GAP 19 (5-19); BLOOD UREA NITROGEN 83 mg/dL (7-20); CALCIUM 8.8 mg/dL (8.4-10.2); CARBON DIOXIDE 21 mmol/L (22-30); CHLORIDE 101 mmol/L (98-107); CREATININE RESULT 11.88 mg/dL (0.52-1.25); GLUCOSE 73 mg/dL (75-110); SODIUM 140.6 mmol/L (137-145)
[2016-12-21 08:42] LABS: POTASSIUM 5.8 mmol/L (3.6-5.0)
--- NOTE | 2016-12-21 13:26 | ER Document Report ---
ED General - General Chief Complaint: Shortness Of Breath Stated Complaint: RESPIRATORY DISTRESS Time Seen by Provider: 12/21/16 06:10 Mode of Arrival: Medic TRAVEL OUTSIDE OF THE [place] IN LAST 30 DAYS: No - HPI Patient complains to provider of: Shortness of breath Notes: Patient has a history of end-stage renal disease missed his dialysis on Tuesday workup in the middle night with shortness of breath denying specific chest pain abdominal pain nausea vomiting fever chills diaphoresis came into the ER for further evaluation. Upon my evaluation patient is lying on his stomach in no obvious distress. Patient denies weakness denies fevers chills denies any recent antibiotics. Patient states that recently ran out of his pain medication as a prescription for further pain medication. - Related Data Allergies/Adverse Reactions: vancomycin [Vancomycin] Adverse Reaction (Unknown, Verified 12/21/16 03:15) molina syndrome Past Medical History - General Information source: Patient - Social History Smoking Status: Former Smoker Chew tobacco use (# tins/day): No Frequency of alcohol use: None Drug Abuse: None Family History: Reviewed & Not Pertinent - Past Medical History Cardiac Medical History: Reports: Hx Congestive Heart Failure, Hx Coronary Artery Disease Pulmonary Medical History: Neurological Medical History: Endocrine Medical History: Reports: Hx Diabetes Mellitus Type 2 Renal/ Medical History: Reports: Hx End Stage Renal Disease - Dialysis dependent, Hx Hemodialysis, Hx Renal Insufficiency. Denies: Hx Peritoneal Dialysis GI Medical History: Reports: Hx Gastroesophageal Reflux Disease Musculoskeltal Medical History: Denies Hx Arthritis Psychiatric Medical History: Reports: Hx Depression Past Surgical History: Reports: Hx Orthopedic Surgery, Hx Vascular Surgery, Other - Neck surgery in 2013 - Immunizations Hx Diphtheria, Pertussis, Tetanus Vaccination: Yes Hx Pneumococcal Vaccination: 02/05/15 Review of Systems - Review of Systems Constitutional: No symptoms reported EENT: No symptoms reported Cardiovascular: Dyspnea Respiratory: No symptoms reported Gastrointestinal: No symptoms reported Genitourinary: No symptoms reported Male Genitourinary: No symptoms reported Musculoskeletal: No symptoms reported Skin: No symptoms reported Hematologic/Lymphatic: No symptoms reported Neurological/Psychological: No symptoms reported -: Yes All other systems reviewed and negative Physical Exam - Vital signs Vitals: Temp Pulse Resp BP Pulse Ox 98.6 F 62 20 179/75 H 97 12/21/16 03:02 12/21/16 03:02 12/21/16 03:02 12/21/16 03:02 12/21/16 03:02 Interpretation: Normal - General General appearance: Appears well, Alert - HEENT Head: Normocephalic, Atraumatic Eyes: Normal Pupils: PERRL - Respiratory Respiratory status: No respiratory distress Chest status: Nontender Breath sounds: Normal Chest palpation: Normal - Cardiovascular Rhythm: Regular Heart sounds: Normal auscultation Murmur: No - Abdominal Inspection: Normal Distension: No distension Bowel sounds: Normal Tenderness: Nontender Organomegaly: No organomegaly - Back Back: Normal, Nontender - Extremities General upper extremity: Normal inspection, Nontender, Normal color, Normal ROM , Normal temperature, Other - AV fistula on the left upper extremity with a palpable thrill General lower extremity: Normal inspection, Nontender, Normal color, Normal ROM , Normal temperature, Normal weight bearing. No: Mercedes's sign - Neurological Neuro grossly intact: Yes Cognition: Normal Orientation: AAOx4 Doug Coma Scale Eye Opening: Spontaneous Doug Coma Scale Verbal: Oriented Doug Coma Scale Motor: Obeys Commands [place] Coma Scale Total: 15 Speech: Normal Motor strength normal: LUE, RUE, LLE, RLE Sensory: Normal - Psychological Associated symptoms: Normal affect, Normal mood - Skin Skin Temperature: Warm Skin Moisture: Dry Skin Color: Normal Course - Re-evaluation Re-evalutation: 12/21/16 13:23 Initially discussed with covering PCP Dr. Gray who agrees transfer the patient has that we normally do not have dialysis on Tuesdays. Discussed with the team at [facility] who agrees to the patient's troponins more likely due to his renal insufficiency as the patient has no chest pain no EKG changes are not concerned about cardiac pathology at this time. Hospitalist request we discussed with nephrology nephrology team did return a phone call stating that we would need to call our quill winder here Dr. Elizondo to see if he establishes emergent dialysis here in the ER. I did discuss this with Dr. Elizondo who agrees patient can stay here in the ER and received his emergent dialysis for his hyperkalemia. Patient initially received calcium and Kayexalate which did lower his potassium from 6.8-5.8. Patient's troponins have continued to be trended and now are going down again do believe that this is more likely due to the patient's renal insufficiency the patient continues to complain of no weakness no nausea no vomiting no shortness of breath no chest pain while here in the ER. Plan at this time is to have the patient undergo his dialysis after which she will be discharged home. - Vital Signs Vital signs: Temp Pulse Resp BP Pulse Ox 97.7 F 62 10 L 187/73 H 96 12/21/16 10:21 12/21/16 03:02 12/21/16 11:00 12/21/16 10:02 12/21/16 11:00 - Laboratory Result Diagrams: 12/21/16 03:24 12/21/16 08:03 Laboratory results interpreted by me: 12/21/16 12/21/16 12/21/16 03:24 04:22 08:03 RBC 2.63 L Hgb 8.5 L Hct 26.1 L MCV 99 H RDW 24.3 H Plt Count 139 L Eosinophils % 17.7 H Absolute Eosinophils 1.3 H Potassium 6.8 H* 5.8 H D Carbon Dioxide 19 L 21 L BUN 81 H 83 H Creatinine 11.70 H 11.88 H Est GFR ( Amer) 5 L 5 L Est GFR (Non-Af Amer) 4 L 4 L Glucose 73 L Direct Bilirubin 0.6 H Creatine Kinase 252 H Critical Care Note - Critical Care Note Total time excluding time spent on procedures (mins): 40 Comments: Time spent multiple evaluations discussion with transferring team and specialist to have the patient emergently dialyzed for his potassium. Discharge - Discharge Clinical Impression: Hyperkalemia Condition: Good Disposition: HOME, SELF-CARE Additional Instructions: Please continue your home medications as prescribed. Please make sure he follow -up with your primary care physician. Please make sure you follow with your dialysis schedule as recommended by her quill winder. Referrals: FEI ZULETA MD [Primary Care Provider] - Follow up as needed
[2016-12-21] MEDS ORDERED: OXYCODONE-ACETAMINOPHEN 5-325 MG TABLET PO ONE (16:18)
--- NOTE | 2016-12-21 16:19 | PDOC CONSULTATION ---
Consultation Consult Date: 12/21/16 Attending physician:: FEI ZULETA Consult reason:: I was asked by the emergency room physician Dr. Puga for Dr. Zuleta to see the patient for hyperkalemia requiring emergency hemodialysis. History of Present Illness Admission Date/PCP: FEI ZULETA MD History of Present Illness: CHAPITO LESLIE is a 61 year old male known to me with history of end-stage renal disease on hemodialysis on Mondays, Wednesdays, and Fridays; history of hypertension, diabetes mellitus, coronary artery disease, recent cholecystectomy presented in the emergency room because of sudden onset of worsening shortness of breath early this morning. Patient's last dialysis was Tuesday of last week. He missed his dialysis yesterday because of diarrhea. He said he started having shortness of breath yesterday afternoon. In the middle of the night he was awakened by shortness of breath and subsequently presented to the emergency room this morning. He tells me he is a little of nausea but no vomiting. He had a little bit of chest tightness and took some nitroglycerin without any relief. Initial evaluation showed elevated potassium of 6.8. Patient was given hyperkalemia cocktail including calcium gluconate, insulin with D50 50, and Kayexalate 30 g in the emergency room. Patient also presented with mildly elevated troponin. Initially he was being arranged for transfer but the thought was this elevated troponin was due to his kidney function. So I was instead called for emergency dialysis in the emergency room for hyperkalemia. When I saw the patient is afternoon he was already on hemodialysis and feels better. His breathing is much improved. He denies any more chest pain, shortness of breath, nausea, or vomiting. He is tolerating dialysis well. Denied any other complaints otherwise. Blood pressure was somewhat elevated. He is tolerating ultrafiltration of almost 3 L this afternoon. Past Medical History Cardiac Medical History: Reports: CHF-Diastolic, Coronary Artery Disease, Hypertension-primary Pulmonary Medical History: EENT Medical History: Reports: Cataracts Neurological Medical History: Endocrine Medical History: Reports: Diabetes Mellitus Type 2 Complications of Diabetes: Reports: Nephropathy Renal/ Medical History: Reports: End Stage Renal Disease - Dialysis dependent GI Medical History: Reports: Gastroesophageal Reflux Disease Psychiatric Medical History: Reports: Depression, General Anxiety Disorder Infectious Medical History: Reports: Hepatitis C Past Surgical History Past Surgical History: Reports: Dialysis Access Surgery AVF, Orthopedic Surgery - Right big toe amputation in 2015, left third and fourth toe amputation, Other - Neck surgery in 2013 Social History Smoking Status: Former Smoker Frequency of Alcohol Use: None Hx Recreational Drug Use: No Hx Prescription Drug Abuse: No Family History Family History: Reviewed & Not Pertinent Parental Family History Reviewed: Yes Children Family History Reviewed: Yes Sibling(s) Family History Reviewed.: Yes Medication/Allergy Home Medications: Amlodipine Besylate [Norvasc 5 mg Tablet] 10 mg PO DAILY 12/13/16 Aspirin [Adult Low Dose Aspirin EC] 81 mg PO DAILY 12/13/16 Atorvastatin Calcium [Lipitor 20 mg Tablet] 20 mg PO DAILY 12/13/16 Insulin Glargine,Hum.rec.anlog [Lantus Solostar] 5 unit SQ QPM 12/13/16 Nitroglycerin [Nitrostat 0.4 mg (1/150 Gr) Tabs 25/Bottle] 0.4 mg SL Q5MP PRN Pregabalin [Lyrica 25 mg Capsule] 25 mg PO DAILY 12/13/16 Tapentadol Hydrochloride [Nucynta] 50 mg PO BID 12/13/16 Amlodipine Besylate [Norvasc 5 mg Tablet] 5 mg PO Q12 #60 tablet 12/15/16 Calcium Acetate [Phoslo 667 mg Capsule] 1,334 mg PO MEALS #0 capsule 12/15/16 Lansoprazole [Prevacid 15 mg Odt Tablet] 15 mg PO Q6AM #30 tab.rap.dr 12/15/16 Allergies/Adverse Reactions: vancomycin [Vancomycin] Adverse Reaction (Unknown, Verified 12/21/16 03:15) molina syndrome Review of Systems All systems: reviewed and no additional remarkable complaints except as stated Review of Systems: Constitutional: ABSENT: chills, fatigue, fever(s), headache(s), weight gain, weight loss Eyes: ABSENT: visual disturbances Ears: ABSENT: hearing changes Cardiovascular: ABSENT: Dyspnea on exertion, edema, orthropnea, palpitations; admits to dyspnea Respiratory: ABSENT: cough, hemoptysis Gastrointestinal: ABSENT: abdominal pain, constipation, hematemesis, hematochezia, vomiting; admits diarrhea and nausea Genitourinary: ABSENT: dysuria, hematuria Musculoskeletal: ABSENT: joint swelling Integumentary: ABSENT: rash, wounds Neurological: ABSENT: abnormal gait, abnormal speech, confusion, dizziness, focal weakness, numbness, syncope Psychiatric: ABSENT: anxiety, depression Endocrine: ABSENT: cold intolerance, heat intolerance, polydipsia, polyuria Hematologic/Lymphatic: ABSENT: easy bleeding, easy bruising, lymphadenopathy Physical Exam Vital Signs: Temp Pulse Resp BP Pulse Ox 97.7 F 62 10 L 187/73 H 96 12/21/16 10:21 12/21/16 03:02 12/21/16 11:00 12/21/16 10:02 12/21/16 11:00 Intake & Output 12/20/16 12/21/16 12/22/16 06:59 06:59 06:59 Weight 85.275 kg Vitals during dialysis: Blood pressure 182/63, heart rate of 56, respiratory rate of 19, oxygen saturation 99%, flow rate 450 mL/min, dialysate flow rate 800 mL/min . Exam: General appearance: no acute distress, cooperative, well-developed, well- nourished Head exam: PRESENT: atraumatic, normocephalic Eye exam: PRESENT: Conjunctiva pale, EOMI, PERRLA. ABSENT: conjunctival injection, scleral icterus Mouth exam: PRESENT: moist, neck supple, tongue midline Neck exam: PRESENT: full ROM. ABSENT: carotid bruit, JVD, lymphadenopathy, thyromegaly Respiratory exam: PRESENT: clear to auscultation bilaterally. ABSENT: rales, rhonchi, stridor, wheezes Cardiovascular exam: PRESENT: RRR, +S1, +S2. ABSENT: systolic murmur Pulses: PRESENT: normal radial pulses, normal dorsalis pedis pulses GI/Abdominal exam: PRESENT: normal bowel sounds, soft. ABSENT: guarding, mass, tenderness Rectal exam: deferred Extremities exam: PRESENT: full ROM. ABSENT: calf tenderness, pedal edema Musculoskeletal: PRESENT: full ROM. ABSENT: deformity Neurological exam: PRESENT: alert, Awake, Oriented to person, Oriented to place , Oriented to time, reflexes normal, CN II-XII grossly intact. ABSENT: motor sensory deficit Psychiatric exam: PRESENT: appropriate affect, normal mood. ABSENT: homicidal ideation, suicidal ideation Skin exam: PRESENT: intact, dry, warm. ABSENT: rash Results Laboratory Results: 12/21/16 03:24 12/21/16 08:03 0712/21/16 12/21/16 03:24 03:24 04:22 WBC 7.6 RBC 2.63 L Hgb 8.5 L Hct 26.1 L MCV 99 H MCH 32.2 MCHC 32.5 RDW 24.3 H Plt Count 139 L Seg Neutrophils % 57.8 Lymphocytes % 13.1 Monocytes % 10.7 Eosinophils % 17.7 H Basophils % 0.7 Absolute Neutrophils 4.4 Absolute Lymphocytes 1.0 Absolute Monocytes 0.8 Absolute Eosinophils 1.3 H Absolute Basophils 0.1 Sodium Cancelled 139.0 Potassium Cancelled 6.8 H* Chloride Cancelled 102 Carbon Dioxide Cancelled 19 L Anion Gap Cancelled 18 BUN Cancelled 81 H Creatinine Cancelled 11.70 H Est GFR ( Amer) Cancelled 5 L Est GFR (Non-Af Amer) Cancelled 4 L Glucose Cancelled 81 Calcium Cancelled 8.6 Total Bilirubin Cancelled 0.8 AST Cancelled 24 ALT Cancelled 28 Alkaline Phosphatase Cancelled 60 Total Protein Cancelled 7.8 Albumin Cancelled 4.2 12/21/16 08:03 WBC RBC Hgb Hct MCV MCH MCHC RDW Plt Count Seg Neutrophils % Lymphocytes % Monocytes % Eosinophils % Basophils % Absolute Neutrophils Absolute Lymphocytes Absolute Monocytes Absolute Eosinophils Absolute Basophils Sodium 140.6 Potassium 5.8 H D Chloride 101 Carbon Dioxide 21 L Anion Gap 19 BUN 83 H Creatinine 11.88 H Est GFR ( Amer) 5 L Est GFR (Non-Af Amer) 4 L Glucose 73 L Calcium 8.8 Total Bilirubin AST ALT Alkaline Phosphatase Total Protein Albumin 12/21/16 12/21/16 12/21/16 03:24 03:24 04:22 Creatine Kinase Cancelled CK-MB (CK-2) Cancelled 3.39 Troponin I Cancelled 0.234 12/21/16 12/21/16 12/21/16 04:22 08:03 12:30 Creatine Kinase 252 H CK-MB (CK-2) Troponin I 0.244 0.218 Impressions: Chest X-Ray 12/21/16 03:02 IMPRESSION: HEART ENLARGED WITHOUT FAILURE. NO OTHER SIGNIFICANT RADIOGRAPHIC FINDING IN THE CHEST. Assessment & Plan - Diagnosis (1) End stage renal disease Is this a current diagnosis for this admission?: YesPlan: We did dialysis today for 3 hours, using the patient's AV fistula, with one potassium bath for 1-1/2 hours followed by 2 potassium bath, blood flow rate of 450 mL per minute, dialysate flow rate of 800 mL per minute, ultrafiltration 3, no heparin and no Procrit during dialysis intravenously. Patient was monitored toward throughout the treatment and has tolerated dialysis without any problems. (2) Hyperkalemia Is this a current diagnosis for this admission?: YesPlan: Emergency dialysis initiated the emergency room today. (3) Anemia in chronic kidney disease (CKD) Qualifiers: Chronic kidney disease stage: on chronic dialysis Qualified Code(s): N18.6 - End stage renal disease; D63.1 - Anemia in chronic kidney disease; Z99.2 - Dependence on renal dialysis Is this a current diagnosis for this admission?: YesPlan: This is likely worsened by hemodilution due to some fluid retention. (4) Hypertension Qualifiers: Hypertension type: essential hypertension Qualified Code(s): I10 - Essential (primary) hypertension Is this a current diagnosis for this admission?: YesPlan: Continue patient's home blood pressure medications to be given here. (5) Elevated troponin Is this a current diagnosis for this admission?: Yes - Notes Notes: Thank you very much for this consultation. From nephrology standpoint patient may be discharged home after dialysis today. I instructed patient to also go to his regular routine dialysis schedule treatment tomorrow at [facility]. - Time Time Spent: 50 to 70 Minutes
[2016-12-21 16:32] VITALS: BP 173/76
== END 2016-12-21 16:25 | disposition home or self-care (01) ==
LOC: ER 02:51
PROC: 5A1D00Z (ICD-10-PCS; principal; 2016-12-21)
DX: E11.22 Type 2 diabetes mellitus with diabetic chronic kidney disease (principal); N18.6 End stage renal disease; Z99.2 Dependence on renal dialysis; Z91.15 Patient's noncompliance with renal dialysis; E87.5 Hyperkalemia; R06.02 Shortness of breath; I25.10 Atherosclerotic heart disease of native coronary artery without angina pectoris; Z87.891 Personal history of nicotine dependence
CPT/HCPCS: 93005; 99291; 96374; 96375; 36415; 82553; 82550; 85025; 80048; 80053; 84484; 71010; 93010; 90970; J0610; J3490; J1940; J1170; J1815; J2405

== ENCOUNTER 2016-12-22 03:40 | Emergency (ER) | payer OTHER, MEDICARE ==
[2016-12-22] MEDS ORDERED: ASPIRIN 81 MG TABLET, CHEWABLE PO ONE (03:44)
--- NOTE | 2016-12-22 04:27 | RADIOLOGY REPORT (SQ) ---
EXAM DESCRIPTION: CHEST SINGLE VIEW COMPLETED DATE/TIME: 12/22/2016 4:07 am REASON FOR STUDY: CP COMPARISON: 12/21/2016. NUMBER OF VIEWS: One view. TECHNIQUE: Single frontal radiographic view of the chest acquired. LIMITATIONS: None. FINDINGS: LUNGS AND PLEURA: No opacities, masses or pneumothorax. No pleural effusion. MEDIASTINUM AND HILAR STRUCTURES: No masses. Contour normal. HEART AND VASCULAR STRUCTURES: Heart enlarged without failure. Normal vasculature. BONES: No acute findings. HARDWARE: None in the chest. OTHER: No other significant finding. IMPRESSION: HEART ENLARGED WITHOUT FAILURE. NO OTHER SIGNIFICANT RADIOGRAPHIC FINDING IN THE CHEST. TECHNICAL DOCUMENTATION: JOB ID: [id number] [employer]- All Rights Reserved
[2016-12-22 04:37] LABS: HEMOGLOBIN 8.8 g/dL (13.5-17.0); HGB HCT DIFFERENCE -0.6; MEAN CORPUSCULAR HGB CONC 32.7 g/dL (32.0-36.0); MEAN CORPUSCULAR VOLUME 98 fl (80-97); RED BLOOD COUNT 2.77 10^6/uL (4.35-5.55); RED CELL DISTRIBUTION WIDTH 24.5 % (11.5-14.0); WHITE BLOOD COUNT 5.9 10^3/uL (4.0-10.5)
[2016-12-22 04:40] LABS: ALANINE AMINOTRANSFERASE 29 U/L (21-72); ALBUMIN 4.5 g/dL (3.5-5.0); ALKALINE PHOSPHATASE 69 U/L (38-126); ANION GAP 15 (5-19); ASPARTATE AMINO TRANSFERASE 42 U/L (17-59); BILIRUBIN,DIRECT 0.7 mg/dL (0.0-0.4); BILIRUBIN,TOTAL 1.2 mg/dL (0.2-1.3); CALCIUM 8.6 mg/dL (8.4-10.2); CARBON DIOXIDE 29 mmol/L (22-30); CHLORIDE 98 mmol/L (98-107); CREATINE KINASE 284 U/L (55-170); CREATININE RESULT 8.33 mg/dL (0.52-1.25); GLUCOSE 89 mg/dL (75-110); POTASSIUM 4.9 mmol/L (3.6-5.0); SODIUM 142.4 mmol/L (137-145); TOTAL PROTEIN 8.4 g/dL (6.3-8.2)
[2016-12-22 04:52] LABS: CREATINE KINASE MB 4.16 ng/mL (<4.55); TROPONIN I 0.23 ng/mL
[2016-12-22 05:04] LABS: BLOOD UREA NITROGEN 54 mg/dL (7-20)
[2016-12-22 05:07] LABS: ANISOCYTOSIS 3+; BAND NEUTROPHILS % (MANUAL) 1 % (3-5); BASOPHILS % (MANUAL) 0 % (0-2); EOSINOPHILS % (MANUAL) 19 % (0-6); HYPOCHROMASIA SLIGHT; LYMPHOCYTES % (MANUAL) 9 % (13-45); NUCLEATED RED BLOOD CELLS 1 /100 WBC (0); OVALOCYTES SLIGHT; POIKILOCYTOSIS SLIGHT; SCHISTOCYTES SLIGHT; TARGET CELLS SLIGHT; TOTAL CELLS COUNTED 100; TOXIC GRANULATION 1+; TOXIC VACUOLATION PRESENT
[2016-12-22] MEDS ORDERED: HYDROMORPHONE HCL INJ/PF 2 MG/ML AMPULE IV ONE (05:55)
[2016-12-22] MEDS ORDERED: ONDANSETRON HCL INJ/PF 4 MG/2 ML SDV IV ONE (05:55)
[2016-12-22] MEDS ORDERED: OXYCODONE-ACETAMINOPHEN 5-325 MG TABLET PO ONE (07:07)
--- NOTE | 2016-12-22 07:13 | ER Document Report ---
ED General - General Chief Complaint: Chest Pain Stated Complaint: CHEAT PAIN Time Seen by Provider: 12/22/16 06:52 TRAVEL OUTSIDE OF THE [place] IN LAST 30 DAYS: No - HPI Patient complains to provider of: Chest pain Notes: Patient is coming in for evaluation chest pain states ongoing since his dialysis here in the ER a day prior to arrival. Patient states he did not take any of his pain medications that he is currently out of his chronic pain medication. Patient is a have an appointment until the for further evaluation by his PCP to have more pain medication. Patient states he did not go to his dialysis this morning is that he was in too much pain. Denies any diaphoresis denies any nausea vomiting - Related Data Allergies/Adverse Reactions: vancomycin [Vancomycin] Adverse Reaction (Unknown, Verified 12/22/16 07:37) molina syndrome Past Medical History - Social History Smoking Status: Unknown if Ever Smoked Family History: Reviewed & Not Pertinent - Past Medical History Cardiac Medical History: Reports: Hx Congestive Heart Failure, Hx Coronary Artery Disease Pulmonary Medical History: Neurological Medical History: Endocrine Medical History: Reports: Hx Diabetes Mellitus Type 2 Renal/ Medical History: Reports: Hx End Stage Renal Disease - Dialysis dependent, Hx Hemodialysis, Hx Renal Insufficiency. Denies: Hx Peritoneal Dialysis GI Medical History: Reports: Hx Gastroesophageal Reflux Disease Musculoskeltal Medical History: Denies Hx Arthritis Psychiatric Medical History: Reports: Hx Depression Past Surgical History: Reports: Hx Orthopedic Surgery - Right big toe amputation in 2014, left third and fourth toe amputation, Hx Vascular Surgery, Other - Neck surgery in 2012 - Immunizations Hx Diphtheria, Pertussis, Tetanus Vaccination: Yes Hx Pneumococcal Vaccination: 02/05/15 Review of Systems - Review of Systems Constitutional: No symptoms reported EENT: No symptoms reported Cardiovascular: Chest pain Respiratory: No symptoms reported Gastrointestinal: No symptoms reported Genitourinary: No symptoms reported Male Genitourinary: No symptoms reported Musculoskeletal: No symptoms reported Skin: No symptoms reported Hematologic/Lymphatic: No symptoms reported Neurological/Psychological: No symptoms reported -: Yes All other systems reviewed and negative Physical Exam - Vital signs Vitals: Pulse Ox 97 12/22/16 04:05 Interpretation: Normal - General General appearance: Appears well, Alert - HEENT Head: Normocephalic, Atraumatic Eyes: Normal Pupils: PERRL - Respiratory Respiratory status: No respiratory distress Chest status: Nontender Breath sounds: Normal Chest palpation: Normal - Cardiovascular Rhythm: Regular Heart sounds: Normal auscultation Murmur: No - Abdominal Inspection: Normal Distension: No distension Bowel sounds: Normal Tenderness: Nontender Organomegaly: No organomegaly - Back Back: Normal, Nontender - Extremities General upper extremity: Normal inspection, Nontender, Normal color, Normal ROM , Normal temperature General lower extremity: Normal inspection, Nontender, Normal color, Normal ROM , Normal temperature, Normal weight bearing. No: Mercedes's sign - Neurological Neuro grossly intact: Yes Cognition: Normal Orientation: AAOx4 Doug Coma Scale Eye Opening: Spontaneous Doug Coma Scale Verbal: Oriented Doug Coma Scale Motor: Obeys Commands Doug Coma Scale Total: 15 Speech: Normal Motor strength normal: LUE, RUE, LLE, RLE Sensory: Normal - Psychological Associated symptoms: Normal affect, Normal mood - Skin Skin Temperature: Warm Skin Moisture: Dry Skin Color: Normal Course - Re-evaluation Re-evalutation: 12/22/16 14:03 Patient's lab work shows similarity in his troponins performed today prior to arrival. No EKG changes. Patient did have pain relief after receiving narcotics here. More likely some withdrawals from his chronic pain medication signs the patient he will need to follow-up with his primary care physician for further pain medication. No signs of acute coronary event at this time. The patient has atypical chest pain as the patient's chest pain is not suggestive of pulmonary embolus, cardiac ischemia, aortic dissection, or other serious etiology. Given the extremely low risk of these diagnoses further testing and evaluation for these possibilities does not appear to be indicated at this time. The patient has been instructed to return if the symptoms worsen or change in any way. - Vital Signs Vital signs: Temp Pulse Resp BP Pulse Ox 72 19 205/75 H 98 12/22/16 07:35 12/22/16 07:35 12/22/16 07:35 12/22/16 07:35 - Laboratory Result Diagrams: 12/22/16 04:10 12/22/16 04:10 Laboratory results interpreted by me: 12/22/16 12/22/16 04:10 04:10 RBC 2.77 L Hgb 8.8 L Hct 27.0 L MCV 98 H RDW 24.5 H Band Neutrophils % 1 L Lymphocytes % (Manual) 9 L Eosinophils % (Manual) 19 H Absolute Eos (Manual) 1.1 H BUN 54 H D Creatinine 8.33 H Est GFR ( Amer) 8 L Est GFR (Non-Af Amer) 7 L Direct Bilirubin 0.7 H Creatine Kinase 284 H Total Protein 8.4 H Discharge - Discharge Clinical Impression: Chest wall pain, End stage renal disease Condition: Good Disposition: HOME, SELF-CARE Instructions: Chest Wall Pain ([facility]), Chest Pain of Unclear Cause ([facility]) Additional Instructions: Go to dialysis at 230pm. Your laboratory studies that showed no signs of significant heart damage. I highly recommend she follow-up with your primary care physician for further evaluation. We are going to be unable to give you any further prescriptions for narcotics he may take Tylenol for your pain however if the pain changes or worsens please return to the ER for further evaluation. Referrals: FEI ZULETA MD [Primary Care Provider] - Follow up as needed
[2016-12-22] MEDS ORDERED: ONDANSETRON 4 MG TAB.RAPDIS ONE (07:28)
[2016-12-22 07:37] VITALS: BP 205/75
[2016-12-22] MEDS ORDERED: ONDANSETRON 4 MG TAB.RAPDIS PO ONE (08:20)
--- NOTE | 2016-12-22 12:04 | EKG REPORT ---
SEVERITY:- ABNORMAL ECG - SINUS RHYTHM FIRST DEGREE AV BLOCK RIGHT BUNDLE BRANCH BLOCK : Confirmed by: Shraddha Angel MD 22-Dec-2016 12:03:38
== END 2016-12-22 07:35 | disposition home or self-care (01) ==
LOC: ER 03:40
DX: R07.89 Other chest pain (principal); N18.6 End stage renal disease; Z99.2 Dependence on renal dialysis
CPT/HCPCS: 93005; 99285; 96374; 96375; 36415; 82553; 82550; 85025; 80053; 84484; 71010; 93010; S0119; J1170; J2405

== ENCOUNTER 2016-12-23 02:01 | Emergency (ER) | payer OTHER, MEDICARE ==
[2016-12-23] MEDS ORDERED: ONDANSETRON 4 MG TAB.RAPDIS PO ONE (02:13)
[2016-12-23] MEDS ORDERED: OXYCODONE-ACETAMINOPHEN 5-325 MG TABLET PO ONE (02:13)
--- NOTE | 2016-12-23 02:14 | ER Document Report ---
ED GI/ - General Chief Complaint: Abdominal Pain Stated Complaint: ABDOMINAL PAIN Time Seen by Provider: 12/23/16 02:11 Mode of Arrival: Medic Information source: Patient, Emergency Med Personnel Notes: 61-year-old male presents to ED for lower left abdominal pain 3 days. He complains of a productive cough lungs are clear TRAVEL OUTSIDE OF THE [place] IN LAST 30 DAYS: No - HPI Patient complains to provider of: Abdominal pain, Other - Cough nausea Onset: Other - 3 days Timing/Duration: Intermittent Quality of pain: Sharp Location: LLQ Associated symptoms: Nausea, Other - Cough Exacerbated by: Denies Relieved by: Denies Similar symptoms previously: Yes Recently seen / treated by doctor: Yes - Related Data Allergies/Adverse Reactions: vancomycin [Vancomycin] Adverse Reaction (Unknown, Verified 12/22/16 07:37) molina syndrome Past Medical History - General Information source: Patient - Social History Smoking Status: Never Smoker Cigarette use (# per day): No Chew tobacco use (# tins/day): No Smoking Education Provided: No Frequency of alcohol use: None Drug Abuse: None Family History: Reviewed & Not Pertinent - Past Medical History Cardiac Medical History: Reports: Hx Congestive Heart Failure, Hx Coronary Artery Disease Pulmonary Medical History: Reports: None EENT Medical History: Reports: None Neurological Medical History: Reports: None Endocrine Medical History: Reports: Hx Diabetes Mellitus Type 2 Renal/ Medical History: Reports: Hx End Stage Renal Disease - Dialysis dependent, Hx Hemodialysis, Hx Renal Insufficiency. Denies: Hx Peritoneal Dialysis Malignancy Medical History: Reports None GI Medical History: Reports: Hx Gastroesophageal Reflux Disease Musculoskeltal Medical History: Reports Other - Chronic pain Skin Medical History: Reports None Psychiatric Medical History: Reports: Hx Depression Traumatic Medical History: Reports: None Infectious Medical History: Reports: None Past Surgical History: Reports: Hx Orthopedic Surgery - Right big toe amputation in 2014, left third and fourth toe amputation, Hx Vascular Surgery, Other - Neck surgery in 2013 - Immunizations Hx Diphtheria, Pertussis, Tetanus Vaccination: Yes Hx Pneumococcal Vaccination: 02/05/15 Review of Systems - Review of Systems Constitutional: No symptoms reported EENT: No symptoms reported Cardiovascular: No symptoms reported Respiratory: Cough Gastrointestinal: Abdominal pain, Nausea Genitourinary: No symptoms reported Male Genitourinary: No symptoms reported Musculoskeletal: No symptoms reported Skin: No symptoms reported Hematologic/Lymphatic: No symptoms reported Neurological/Psychological: No symptoms reported -: Yes All other systems reviewed and negative Physical Exam - Vital signs Vitals: Temp Pulse Resp BP Pulse Ox 98.7 F 61 18 174/68 H 97 12/23/16 02:15 12/23/16 02:15 12/23/16 02:15 12/23/16 02:15 12/23/16 02:15 Interpretation: Normal - General General appearance: Appears well, Alert - HEENT Head: Normocephalic, Atraumatic Eyes: Normal Pupils: PERRL - Respiratory Respiratory status: No respiratory distress Chest status: Nontender Breath sounds: Normal Chest palpation: Normal - Cardiovascular Rhythm: Regular Heart sounds: Normal auscultation Murmur: No - Abdominal Inspection: Normal Distension: No distension Bowel sounds: Normal Tenderness: Nontender Organomegaly: No organomegaly - Back Back: Normal, Nontender - Extremities General upper extremity: Normal inspection, Nontender, Normal color, Normal ROM , Normal temperature General lower extremity: Normal inspection, Nontender, Normal color, Normal ROM , Normal temperature, Normal weight bearing. No: Mercedes's sign - Neurological Neuro grossly intact: Yes Cognition: Normal Orientation: AAOx4 [place] Coma Scale Eye Opening: Spontaneous [place] Coma Scale Verbal: Oriented Doug Coma Scale Motor: Obeys Commands Doug Coma Scale Total: 15 Speech: Normal Motor strength normal: LUE, RUE, LLE, RLE Sensory: Normal - Psychological Associated symptoms: Normal affect, Normal mood - Skin Skin Temperature: Warm Skin Moisture: Dry Skin Color: Normal Course - Re-evaluation Re-evalutation: 12/23/16 03:50 Assessment and lab results with Dr. Luke will discharge patient home to follow-up with his chronic pain management doctor - Vital Signs Vital signs: Temp Pulse Resp BP Pulse Ox 98.7 F 61 18 174/68 H 97 12/23/16 02:15 12/23/16 02:15 12/23/16 02:15 12/23/16 02:15 12/23/16 02:15 - Laboratory Result Diagrams: 12/23/16 02:28 12/23/16 02:28 Laboratory results interpreted by me: 12/23/16 12/23/16 12/23/16 02:28 02:28 02:41 WBC 3.3 L RBC 2.75 L Hgb 8.9 L Hct 27.0 L MCV 98 H RDW 24.3 H Band Neutrophils % 1 L Monocytes % (Manual) 14 H Eosinophils % (Manual) 22 H Basophils % (Manual) 3 H Abs Neuts (Manual) 1.4 L Absolute Eos (Manual) 0.7 H Chloride 96 L BUN 23 H D Creatinine 4.68 H Est GFR ( Amer) 15 L Est GFR (Non-Af Amer) 13 L Total Bilirubin 1.9 H Direct Bilirubin 0.7 H Total Protein 8.5 H Urine Protein >=500 H Urine Glucose (UA) 150 H Discharge - Discharge Clinical Impression: Abdominal pain Qualifiers: Abdominal location: left lower quadrant Qualified Code(s): R10.32 - Left lower quadrant pain Chronic pain Qualifiers: Chronic pain type: chronic pain syndrome Qualified Code(s): G89.4 - Chronic pain syndrome Condition: Stable Disposition: HOME, SELF-CARE Additional Instructions: ABDOMINAL PAIN: There are many causes of abdominal pain. Pain can mean a serious problem requiring surgery (such as appendicitis). It can also be an innocent problem that goes away on its own (such as a viral infection). Often, time must pass to determine the cause of pain. The physician does not feel that hospitalization is necessary, at present. Things may change within the next 24 hours. Call the doctor or come back for re- examination if any problems occur, such as: (1) Pain that becomes more severe, steady, or becomes concentrated in one specific area. Also, pain that is more severe with movement or coughing. (2) Vomiting that persists or becomes more frequent. (3) Blood in the vomitus, urine, or bowel movements. Blood in the stool may have a tarry or black appearance. (4) Shaking chills or fever greater than 100 degrees F. (5) The abdomen becomes more distended or swollen. (6) Bowel movements cease. (7) Failure to improve as expected. NORMAL EXAM AND WORKUP: At this time, your examination and workup show no significant abnormality. No significant abnormal physical findings are noted. All laboratory, EKG, and imaging (x-ray, CT scans, ultrasound) studies that were ordered show no significant abnormality. Although your examination and all studies that were ordered showed no significant abnormal finding, there are no examinations and no studies that are 100% accurate. There is always the possibility that some abnormality could exist and not be detected with physical examination or within the limits and capabilities of laboratory and other studies. You should return or follow up as you were instructed on your visit today for further evaluation if your symptoms do not resolve. Chronic Pain Control Stress, inactivity, and depression make pain more severe regardless of the cause of the pain. Stress and poor physical condition can cause pain such as headaches and backache. Relaxation: Rest in a quiet place with your eyes closed for 20 minutes twice daily. Concentrate on a pleasant image, or simply "feel" your breathing. Clear your mind. Stress management: Deal with your "stressors." Either take action, or eliminate the stressor from your life. Don't let things hang over you. Accept those things you can't change. Nutrition: Eat small, balanced meals -- don't skip, don't overeat. Meals should be high-carbohydrate, low-sugar, low-fat. Exercise: Exercise helps painful conditions and eases stress. Get 30 minutes of moderate exercise, five days a week. Do an activity that does not flare your pain. Precautions: Pain which continues to disrupt daily activities, or which changes in nature, requires a medical evaluation. Pain Clinic referral is available. We do not manage chronic pain in the Emergency Department. We will try to appropriately help you through an acute flare of your chronic painful condition , but for on-going chronic pain that does not improve, you will need to see your private doctor or spray ii painter. We do not provide repeated medication management of chronic painful conditions. If you wish, we can provide the name of local pain management physicians. FOLLOW-UP CARE: If you have been referred to a physician for follow-up care, call the physician s office for an appointment as you were instructed or within the next two days. If you experience worsening or a significant change in your symptoms, notify the physician immediately or return to the Emergency Department at any time for re-evaluation. Forms: Elevated Blood Pressure Referrals: FEI ZULETA MD [Primary Care Provider] - Follow up tomorrow
[2016-12-23 02:20] VITALS: BP 174/68
[2016-12-23 03:00] LABS: HEMOGLOBIN 8.9 g/dL (13.5-17.0); HGB HCT DIFFERENCE -0.3; MEAN CORPUSCULAR HEMOGLOBIN 32.2 pg (27.0-33.4); MEAN CORPUSCULAR HGB CONC 32.9 g/dL (32.0-36.0); MEAN CORPUSCULAR VOLUME 98 fl (80-97); RED BLOOD COUNT 2.75 10^6/uL (4.35-5.55); RED CELL DISTRIBUTION WIDTH 24.3 % (11.5-14.0); WHITE BLOOD COUNT 3.3 10^3/uL (4.0-10.5)
[2016-12-23 03:02] LABS: APPEARANCE,URINE CLEAR; BILIRUBIN,URINE NEGATIVE (NEGATIVE); GLUCOSE, URINE 150 mg/dL (NEGATIVE); KETONES,URINE NEGATIVE (NEGATIVE); LEUKOCYTE ESTERASE,URINE NEGATIVE (NEGATIVE); NITRITE,URINE NEGATIVE (NEGATIVE); PROTEIN,URINE >=500 mg/dL (NEGATIVE); URINE SPECIFIC GRAVITY 1.008; UROBILINOGEN,URINE NEGATIVE mg/dL (<2.0)
[2016-12-23 03:06] LABS: ALANINE AMINOTRANSFERASE 36 U/L (21-72); ALBUMIN 4.5 g/dL (3.5-5.0); ALKALINE PHOSPHATASE 69 U/L (38-126); ANION GAP 15 (5-19); ASPARTATE AMINO TRANSFERASE 30 U/L (17-59); BILIRUBIN,DIRECT 0.7 mg/dL (0.0-0.4); BILIRUBIN,TOTAL 1.9 mg/dL (0.2-1.3); CALCIUM 8.4 mg/dL (8.4-10.2); CARBON DIOXIDE 29 mmol/L (22-30); CHLORIDE 96 mmol/L (98-107); CREATININE RESULT 4.68 mg/dL (0.52-1.25); GLUCOSE 88 mg/dL (75-110); SODIUM 139.7 mmol/L (137-145); TOTAL PROTEIN 8.5 g/dL (6.3-8.2)
[2016-12-23 03:22] LABS: BAND NEUTROPHILS % (MANUAL) 1 % (3-5); BASOPHILS % (MANUAL) 3 % (0-2); EOSINOPHILS % (MANUAL) 22 % (0-6); LYMPHOCYTES % (MANUAL) 18 % (13-45); NUCLEATED RED BLOOD CELLS 1 /100 WBC (0); TOTAL CELLS COUNTED 100
[2016-12-23 03:24] LABS: ANISOCYTOSIS 3+; OVALOCYTES SLIGHT; POIKILOCYTOSIS SLIGHT; POLYCHROMASIA SLIGHT; TARGET CELLS SLIGHT; TEAR DROP CELLS SLIGHT; TOXIC GRANULATION SLIGHT; TOXIC VACUOLATION PRESENT
[2016-12-23 03:35] LABS: BLOOD UREA NITROGEN 23 mg/dL (7-20)
== END 2016-12-23 03:55 | disposition home or self-care (01) ==
LOC: ER 02:01
DX: F11.23 Opioid dependence with withdrawal (principal); R10.84 Generalized abdominal pain; G89.29 Other chronic pain; T40.2X6A Underdosing of other opioids, initial encounter; Z91.128 Patient's intentional underdosing of medication regimen for other reason; Z91.14 Patient's other noncompliance with medication regimen; R11.0 Nausea; R00.1 Bradycardia, unspecified; E11.22 Type 2 diabetes mellitus with diabetic chronic kidney disease; N18.6 End stage renal disease; Z99.2 Dependence on renal dialysis; I25.10 Atherosclerotic heart disease of native coronary artery without angina pectoris; Z90.49 Acquired absence of other specified parts of digestive tract
CPT/HCPCS: 99284; 36415; 85025; 80053; 81001; S0119

== ENCOUNTER 2016-12-23 17:33 | Emergency (ER) | payer OTHER, MEDICARE ==
[2016-12-23] MEDS ORDERED: METOCLOPRAMIDE HCL INJ/PF 10 MG/2 ML SDV IV ONE (17:56)
--- NOTE | 2016-12-23 17:58 | ER Document Report ---
ED Medical Screen (RME) - General Chief Complaint: Chest Pain Stated Complaint: CHEST PAIN Notes: Patient states approximately 4 days ago he began to have upper quadrant abdominal pain that radiates into his chest. He states that he is nauseated but is not vomiting. He has had a decreased appetite. He states he does not have shortness of breath. No problems with stools or urine. He states that the pain became worse today after dialysis. TRAVEL OUTSIDE OF THE [place] 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 Past Medical History - Past Medical History Cardiac Medical History: Reports: Hx Congestive Heart Failure, Hx Coronary Artery Disease Pulmonary Medical History: Neurological Medical History: Endocrine Medical History: Reports: Hx Diabetes Mellitus Type 2 Renal/ Medical History: Reports: Hx End Stage Renal Disease - Dialysis dependent, Hx Hemodialysis, Hx Renal Insufficiency. Denies: Hx Peritoneal Dialysis GI Medical History: Reports: Hx Gastroesophageal Reflux Disease Musculoskeltal Medical History: Denies Hx Arthritis Psychiatric Medical History: Reports: Hx Depression Past Surgical History: Reports: Hx Orthopedic Surgery - Right big toe amputation in 2014, left third and fourth toe amputation, Hx Vascular Surgery, Other - Neck surgery in 2012 - Immunizations Hx Diphtheria, Pertussis, Tetanus Vaccination: Yes Physical Exam - Vital signs Vitals: Temp Pulse Resp BP Pulse Ox 98.7 F 58 L 18 163/63 H 96 12/23/16 17:47 12/23/16 17:47 12/23/16 17:47 12/23/16 17:47 12/23/16 17:47 Course - Vital Signs Vital signs: Temp Pulse Resp BP Pulse Ox 98.7 F 58 L 18 163/63 H 96 12/23/16 17:47 12/23/16 17:47 12/23/16 17:47 12/23/16 17:47 12/23/16 17:47
[2016-12-23] MEDS ORDERED: METOCLOPRAMIDE HCL 10 MG TABLET PO ONE (18:22)
[2016-12-23 18:44] LABS: HEMATOCRIT 26.3 % (37.9-51.0); HGB HCT DIFFERENCE 0.7; MEAN CORPUSCULAR HEMOGLOBIN 33.8 pg (27.0-33.4); MEAN CORPUSCULAR HGB CONC 34.2 g/dL (32.0-36.0); MEAN CORPUSCULAR VOLUME 99 fl (80-97); RED BLOOD COUNT 2.67 10^6/uL (4.35-5.55); RED CELL DISTRIBUTION WIDTH 23.7 % (11.5-14.0); WHITE BLOOD COUNT 2.8 10^3/uL (4.0-10.5)
[2016-12-23 18:53] LABS: ALANINE AMINOTRANSFERASE 32 U/L (21-72); ALBUMIN 3.9 g/dL (3.5-5.0); ALKALINE PHOSPHATASE 57 U/L (38-126); ANION GAP 14 (5-19); ASPARTATE AMINO TRANSFERASE 30 U/L (17-59); BILIRUBIN,DIRECT 0.6 mg/dL (0.0-0.4); BILIRUBIN,TOTAL 1.4 mg/dL (0.2-1.3); BLOOD UREA NITROGEN 37 mg/dL (7-20); CARBON DIOXIDE 25 mmol/L (22-30); CHLORIDE 99 mmol/L (98-107); CREATININE RESULT 6.34 mg/dL (0.52-1.25); GLUCOSE 168 mg/dL (75-110); LIPASE 78.6 U/L (23-300); POTASSIUM 4.4 mmol/L (3.6-5.0); TOTAL PROTEIN 7.5 g/dL (6.3-8.2)
[2016-12-23 18:58] LABS: BAND NEUTROPHILS % (MANUAL) 1 % (3-5); BASOPHILS % (MANUAL) 2 % (0-2); EOSINOPHILS % (MANUAL) 15 % (0-6); LYMPHOCYTES % (MANUAL) 22 % (13-45); TOTAL CELLS COUNTED 100
[2016-12-23 18:59] LABS: ANISOCYTOSIS 3+
[2016-12-23 19:00] LABS: POIKILOCYTOSIS SLIGHT
[2016-12-23 19:01] LABS: OVALOCYTES 1+; POLYCHROMASIA SLIGHT; TARGET CELLS 1+; TEAR DROP CELLS SLIGHT
[2016-12-23 19:03] LABS: HYPOCHROMASIA SLIGHT
[2016-12-23 19:04] LABS: TOXIC GRANULATION SLIGHT
--- NOTE | 2016-12-23 19:31 | RADIOLOGY REPORT (SQ) ---
EXAM DESCRIPTION: CHEST SINGLE VIEW COMPLETED DATE/TIME: 12/23/2016 6:53 pm REASON FOR STUDY: chest pain COMPARISON: 12/22/2016 NUMBER OF VIEWS: One view. TECHNIQUE: Single frontal radiographic view of the chest acquired. LIMITATIONS: None. FINDINGS: LUNGS AND PLEURA: No opacities, masses or pneumothorax. No pleural effusion. MEDIASTINUM AND HILAR STRUCTURES: No masses. Contour normal. HEART AND VASCULAR STRUCTURES: Cardiomegaly stable. No overt CHF. BONES: No acute findings. HARDWARE: None in the chest. OTHER: No other significant finding. IMPRESSION: Stable cardiomegaly. No overt CHF. TECHNICAL DOCUMENTATION: JOB ID: [id number] [employer]- All Rights Reserved
[2016-12-23] MEDS ORDERED: MAG HYDROX/AL HYDROX/SIMETH SUSP 30 ML UDCUP PO ONE (19:45)
[2016-12-23] MEDS ORDERED: FAMOTIDINE 20 MG TABLET PO ONE (19:45)
[2016-12-23] MEDS ORDERED: METOCLOPRAMIDE HCL ORAL SOLN 10 MG/10 ML UDCUP PO ONE (19:45)
[2016-12-23] MEDS ORDERED: LIDOCAINE 2% VISCOUS SOLN 20 ML UDCUP PO ONE (19:45)
--- NOTE | 2016-12-23 19:52 | ER Document Report ---
ED General - General Chief Complaint: Chest Pain Stated Complaint: CHEST PAIN Time Seen by Provider: 12/23/16 18:42 Notes: Patient is a 61-year-old male with past medical history of chronic kidney disease with dialysis dependence, prior history of coronary artery disease, history of recurrent epigastric abdominal pain that has been evaluated extensively including with an endoscopy, prior cholecystectomy, recent admission for serial troponins and a recent stress test which was noted to be normal again presents today less than 24 hours after last evaluation for ongoing epigastric abdominal discomfort. Patient describes as a dull, constant , aching pain that often radiates up into his chest. Nothing improves or worsens that pain. Notes it is associated with nausea without vomiting. The symptoms have been present for the past 5 days. Of note patient did run out of his oxycodone 10 mg 2-3 times daily 5 days ago and this is correlated with the time that he has come to the emergency department for this concern. Patient initially states that he ran out of this medication due to the pharmacy "short changing the 30 pills" but this is contradicted later and history in which he states that he took a few extra once in a while to help control his chronic pain. He has seen his primary care doctor regarding today's concerns has been referred to his pain management doctor for these concerns. TRAVEL OUTSIDE OF THE [place] 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 Past Medical History - General Information source: Patient - Social History Smoking Status: Never Smoker Chew tobacco use (# tins/day): No Frequency of alcohol use: None Drug Abuse: None Lives with: Family Family History: Reviewed & Not Pertinent Patient has suicidal ideation: No Patient has homicidal ideation: No - Past Medical History Cardiac Medical History: Reports: Hx Congestive Heart Failure, Hx Coronary Artery Disease Pulmonary Medical History: Neurological Medical History: Endocrine Medical History: Reports: Hx Diabetes Mellitus Type 2 Renal/ Medical History: Reports: Hx End Stage Renal Disease - Dialysis dependent, Hx Hemodialysis, Hx Renal Insufficiency. Denies: Hx Peritoneal Dialysis GI Medical History: Reports: Hx Gastroesophageal Reflux Disease Musculoskeltal Medical History: Denies Hx Arthritis Psychiatric Medical History: Reports: Hx Depression Past Surgical History: Reports: Hx Orthopedic Surgery - Right big toe amputation in 2014, left third and fourth toe amputation, Hx Vascular Surgery, Other - Neck surgery in 2013 - Immunizations Hx Diphtheria, Pertussis, Tetanus Vaccination: Yes Hx Pneumococcal Vaccination: 02/05/15 Review of Systems - Review of Systems Notes: Constitutional: Negative for fever. HENT: Negative for sore throat. Eyes: Negative for visual changes. Cardiovascular: Positive for chest pain. Respiratory: Negative for shortness of breath. Gastrointestinal: Positive for epigastric abdominal pain and nausea Genitourinary: Negative for dysuria. Musculoskeletal: Negative for back pain. Skin: Negative for rash. Neurological: Negative for headaches, weakness or numbness. 10 point ROS negative except as marked above and in HPI. Physical Exam - Vital signs Vitals: Temp Pulse Resp BP Pulse Ox 98.7 F 58 L 18 163/63 H 96 12/23/16 17:47 12/23/16 17:47 12/23/16 17:47 12/23/16 17:47 12/23/16 17:47 Interpretation: Bradycardic Notes: PHYSICAL EXAMINATION: GENERAL: Well-appearing, well-nourished and in no acute distress. HEAD: Atraumatic, normocephalic. EYES: Pupils equal round and reactive to light, extraocular movements intact, sclera anicteric, conjunctiva are normal. ENT: nares patent, oropharynx clear without exudates. Moist mucous membranes. NECK: Normal range of motion, supple without lymphadenopathy LUNGS: Breath sounds clear to auscultation bilaterally and equal. No wheezes rales or rhonchi. HEART: Regular rate and rhythm without murmurs ABDOMEN: Soft, nontender, normoactive bowel sounds. No guarding, no rebound. No masses appreciated. EXTREMITIES: Normal range of motion, no pitting or edema. No cyanosis. NEUROLOGICAL: No focal neurological deficits. Moves all extremities spontaneously and on command. PSYCH: Normal mood, normal affect. SKIN: Warm, Dry, normal turgor, no rashes or lesions noted. Course - Re-evaluation Re-evalutation: 12/23/16 19:49 Patient presents again today with ongoing epigastric abdominal pain. He has been evaluated several times for this complaint including endoscopy which was noted to be normal, and a cholecystectomy which has not resulted in improvement of his symptoms, has had 2 CTs of his abdomen and pelvis in the past 2 months for this complaint both of which were unremarkable, and he has had an extensive cardiac evaluation including a stress test as well as a recent hospitalization for serial troponin markers. His troponin is lower today than it has been in the past at 0.180 most recent reading was 0.26. No EKG changes. Many of patient's symptoms that he relates are consistent with opiate withdrawal. He does admit to running out of his oxycodone 10 mg tablets early and is not scheduled for a refill until the of this month through his for chronic pain management clinic. His at the bedside also relates that patient has had severe insomnia, been more agitated, had nausea and difficulty eating ever since he ran out of his pain medications. I have expressed with this patient the severity of his opiate dependency as well as the likelihood that some of his symptoms are related to opiate withdrawal. I do not believe there is any indication for advanced imaging at this time as patient has no focal abdominal tenderness, rebound or guarding on examination. His gallbladder has already been removed. His labs today are unchanged from prior. At this time will discharge with return precautions and follow-up recommendations. Verbal discharge instructions given a the bedside and opportunity for questions given. Medication warnings reviewed. Patient is in agreement with this plan and has verbalized understanding of return precautions and the need for primary care follow-up in the next 24-72 hours. - Vital Signs Vital signs: Temp Pulse Resp BP Pulse Ox 98.7 F 58 L 27 H 187/74 H 97 12/23/16 17:47 12/23/16 17:47 12/23/16 20:01 12/23/16 20:01 12/23/16 20:01 - Laboratory Result Diagrams: 12/23/16 18:05 12/23/16 18:05 Laboratory results interpreted by me: 12/23/16 12/23/16 18:05 18:05 WBC 2.8 L RBC 2.67 L Hgb 9.0 L Hct 26.3 L MCV 99 H MCH 33.8 H RDW 23.7 H Plt Count 139 L Seg Neuts % (Manual) 40 L Band Neutrophils % 1 L Monocytes % (Manual) 19 H Eosinophils % (Manual) 15 H Abs Neuts (Manual) 1.1 L BUN 37 H Creatinine 6.34 H Est GFR ( Amer) 11 L Est GFR (Non-Af Amer) 9 L Glucose 168 H Calcium 8.0 L Total Bilirubin 1.4 H Direct Bilirubin 0.6 H - Diagnostic Test Radiology reviewed: Image reviewed, Reports reviewed Radiology results interpreted by me: 12/24/16 03:43 Chest x-ray: No acute infiltrate or pneumothorax Discharge - Discharge Clinical Impression: Opiate withdrawal Abdominal pain Qualifiers: Abdominal location: generalized Qualified Code(s): R10.84 - Generalized abdominal pain Opiate dependence Qualifiers: Substance use status: in withdrawal Qualified Code(s): F11.23 - Opioid dependence with withdrawal Condition: Stable Disposition: HOME, SELF-CARE Additional Instructions: You have been seen in the Emergency Department (ED) for abdominal pain. Your evaluation did not identify a clear cause of your symptoms but was generally reassuring. Many of your symptoms may be related to you coming off oxycodone. Chronic use of this medication is almost never appropriate and you are addicted. Please follow up with your doctor as soon as possible regarding today's emergent visit and the symptoms that are bothering you. Return to the ED if your abdominal pain worsens or fails to improve, you develop bloody vomiting, bloody diarrhea, you are unable to tolerate fluids due to vomiting, fever greater than 101, or other symptoms that concern you. Referrals: SMITHA ZULETA MD [Primary Care Provider] - Follow up as needed
[2016-12-23 20:05] VITALS: BP 187/74
--- NOTE | 2016-12-26 13:50 | EKG REPORT ---
SEVERITY:- ABNORMAL ECG - SINUS RHYTHM FIRST DEGREE AV BLOCK RIGHT BUNDLE BRANCH BLOCK : Confirmed by: Shraddha Agnel MD 26-Dec-2016 13:49:34
== END 2016-12-23 20:20 | disposition home or self-care (01) ==
LOC: ER 17:33
DX: F11.23 Opioid dependence with withdrawal (principal); R10.84 Generalized abdominal pain; G89.29 Other chronic pain; T40.2X6A Underdosing of other opioids, initial encounter; Z91.128 Patient's intentional underdosing of medication regimen for other reason; Z91.14 Patient's other noncompliance with medication regimen; R11.0 Nausea; R00.1 Bradycardia, unspecified; R07.9 Chest pain, unspecified; I25.10 Atherosclerotic heart disease of native coronary artery without angina pectoris; E11.22 Type 2 diabetes mellitus with diabetic chronic kidney disease; N18.6 End stage renal disease; Z99.2 Dependence on renal dialysis; Z90.49 Acquired absence of other specified parts of digestive tract
CPT/HCPCS: 93005; 99285; 36415; 83690; 85025; 80053; 84484; 71010; 93010; J3490

== ENCOUNTER → 2017-01-27 | Outpatient (CLI) | payer MEDICARE ==
--- NOTE | 2017-01-27 12:25 | RADIOLOGY REPORT (SQ) ---
EXAM DESCRIPTION: FOOT RIGHT COMPLETE COMPLETED DATE/TIME: 01/27/2017 12:09 pm REASON FOR STUDY: UNSPECIFIED INJURY OF RIGHT FOOT, INITIAL ENCOUNTER S99.921A UNSPECIFIED INJURY O F RIGHT FOOT, INITIAL ENCOUNTER COMPARISON: Right foot films 10/21/2014, 12/17/2014 NUMBER OF VIEWS: Three views. TECHNIQUE: AP, lateral and oblique radiographic images acquired of the right foot. LIMITATIONS: None. FINDINGS: The right 2nd toe demonstrates diffuse soft tissue swelling. No radiopaque foreign body o r soft tissue gas. No aggressive 2nd toe demineralization worrisome for osteomyelitis. Patient is post remote prior great toe transmetatarsal amputation. There is well corticated bone carrie ng the proximal half of the 1st metatarsal. No aggressive bony demineralization worrisome for 1st me tatarsal osteomyelitis. Remainder of the bones of the right foot are otherwise unremarkable. Arterial vascular calcification s are present. Small plantar and dorsal calcaneal spurs. Mild diffuse forefoot soft tissue swelling . IMPRESSION: Right 2nd toe and diffuse forefoot soft tissue swelling likely cellulitis. No aggressiv e bony demineralization worrisome for an acute osteomyelitis. Old post therapeutic and post infectious/inflammatory change 1st metatarsal TECHNICAL DOCUMENTATION: JOB ID: [id number] [employer]- All Rights Reserved
== END ==
LOC: OD 11:40
PROVIDERS: ATTEND Physician Assistant
DX: S99.921A Unspecified injury of right foot, initial encounter (principal); X58.XXXA Exposure to other specified factors, initial encounter; Y93.9 Activity, unspecified; Y92.9 Unspecified place or not applicable; Y99.9 Unspecified external cause status

== ENCOUNTER → 2017-02-24 | Outpatient (CLI) | payer MEDICARE ==
--- NOTE | 2017-02-24 11:50 | RADIOLOGY REPORT (SQ) ---
EXAM DESCRIPTION: FOOT RIGHT COMPLETE COMPLETED DATE/TIME: 02/24/2017 10:50 am REASON FOR STUDY: NON-PRS CHRONIC ULCER OTH PRT RIGHT FOOT W NECROSIS OF BONE L97.514 NON-PRS CHRON IC ULCER OTH PRT RIGHT FOOT W NECROSIS COMPARISON: 01/27/2017 NUMBER OF VIEWS: Three views. TECHNIQUE: AP, lateral and oblique radiographic images acquired of the right foot. LIMITATIONS: None. FINDINGS: MINERALIZATION: Normal. BONES: There is amputation of the 1st digit from the mid to distal aspect of the 1st metatarsal. Bon e destruction is present in the 2nd middle phalanx and distal phalanx. JOINTS: No effusions. SOFT TISSUES: No soft tissue swelling. No foreign body. OTHER: No other significant finding. IMPRESSION: There are new changes of bone destruction in the 2nd digit concerning for osteomyelitis. TECHNICAL DOCUMENTATION: JOB ID: [id number] [employer]- All Rights Reserved
== END ==
LOC: OD 10:34
PROVIDERS: ATTEND Preventive Medicine Undersea and Hyperbaric Medicine
DX: L97.514 Non-pressure chronic ulcer of other part of right foot with necrosis of bone (principal)

== ENCOUNTER 2017-03-01 11:13 | Day surgery (SDC) | payer MEDICARE ==
[2017-03-01 11:36] LABS: HEMATOCRIT 26.9 % (37.9-51.0); HEMOGLOBIN 9.1 g/dL (13.5-17.0); HGB HCT DIFFERENCE 0.4; MEAN CORPUSCULAR HEMOGLOBIN 33.7 pg (27.0-33.4); MEAN CORPUSCULAR HGB CONC 33.8 g/dL (32.0-36.0); MEAN CORPUSCULAR VOLUME 100 fl (80-97); RED BLOOD COUNT 2.69 10^6/uL (4.35-5.55); RED CELL DISTRIBUTION WIDTH 22.5 % (11.5-14.0); WHITE BLOOD COUNT 7.9 10^3/uL (4.0-10.5)
[2017-03-01] MEDS ORDERED: OXYCODONE-ACETAMINOPHEN 5-325 MG TABLET ONE (11:51)
[2017-03-01] MEDS ORDERED: DIAZEPAM 5 MG TABLET ONE (11:51)
[2017-03-01] MEDS ORDERED: HEPARIN SOD (PORCINE) 5,000 UNIT/ML 1 ML SYRINGE ONE (11:58)
[2017-03-01 12:01] LABS: ANION GAP 14 (5-19); BLOOD UREA NITROGEN 44 mg/dL (7-20); CARBON DIOXIDE 29 mmol/L (22-30); CHLORIDE 98 mmol/L (98-107); CREATININE RESULT 8.61 mg/dL (0.52-1.25); GLUCOSE 114 mg/dL (75-110); POTASSIUM 4.8 mmol/L (3.6-5.0); SODIUM 141.1 mmol/L (137-145)
--- NOTE | 2017-03-01 12:54 | PDOC DISCHARGE SUMMARY ---
Discharge Summary (SDC) - Discharge Final Diagnosis: #1 malfunctioning arteriovenous fistula, left brachiocephalic. 2. End-stage renal disease on hemodialysis. 3. Diabetes mellitus type 2. 4. Hypertension. Date of Surgery: 03/01/17 Discharge Date: 03/01/17 Condition: Fair Treatment or Instructions: Discharge home [after recovery per ASU criteria]. Diet , [renal],as tolerated, when fully awake advance as tolerated. Activities within moderation encouraged. Follow up in my office by appointment in about 1 month. Call for appointment. Leave wounds [covered], [keep clean and dry, unti hemodialysis]. Meds per med rec. May shower [in 48 hrs], [try to keep operated area as dry as possible]. Referrals: FEI ZULETA MD [Primary Care Provider] - Discharge Diet: Other (Comments) - Renal Respiratory Treatments at Home: Deep Breathing/Coughing Discharge Activity: Activity As Tolerated Report the Following to Your Physician Immediately: Shortness of Breath, Unusual Bleeding
[2017-03-01] MEDS ORDERED: LIDOCAINE 0.5% INJ-PF (5 MG/ML) 50 ML SDV ONE (13:03)
[2017-03-01 13:39] VITALS: BP 153/63
--- NOTE | 2017-03-01 14:16 | Operative Report ---
Operative Report DATE OF SURGERY: 03/01/17 PREOPERATIVE DIAGNOSIS: #1 malfunctioning arteriovenous fistula, left brachiocephalic. 2. End-stage renal disease on hemodialysis. 3. Diabetes mellitus type 2. 4. Hypertensio POSTOPERATIVE DIAGNOSIS: #1 malfunctioning arteriovenous fistula, left brachiocephalic. Post angioplasty. 2. End-stage renal disease on hemodialysis. 3. Diabetes mellitus type 2. 4. Hypertensio OPERATION: #1 needle introduction into left brachiocephalic arteriovenous fistula. 2. Angioplasty in the fistula. 3. Angioplasty of the central subclavian vein. 4. Angiogram and interpretation. SURGEON: ADIA MORENO RN PERIOPERATIVE: None ANESTHESIA: Moderate Sedation TISSUE REMOVED OR ALTERED: Not applicable. COMPLICATIONS: None ESTIMATED BLOOD LOSS: 2 mL. INTRAOPERATIVE FINDINGS: Of a very firm and hyper pulsatile fistula large not quite a Eric fistula. The circuit entirely normal from the proximal fistula up to the cephalic near the arch. Tight stenosis of the distal cephalic about 2 cm long is a 90% of the adjacent lumen. In addition a central cyst stenosis noted in the subclavian about 70% of the adjacent lumen. Both corrected with angioplasty with no more than 5% residual stenosis of the subclavian. The fistula was noticeably softer and the bruit was continuous as opposed to semi- obstructive as an as followed initially. If further interventions are needed at 12 are larger balloon may be needed and considerations given to a drug- eluting balloon. PROCEDURE: PROCEDURE: This patient with a generally satisfactory left arm brachiocephalic vein is indicated for intervention because of a hyper pulsatile and semi-obstructive signal. The hope is to prolong the useful life of this fistula. After verifying the procedure and having obtained informed consent, the patient's left arm was prepared with Chlorhexidine and draped out with sterile linen. Local anesthesia infiltrated. Percutaneous access into the fistula ,[ antegrade], obtained about [6 cm] from the arteriovenous anastomosis using a micro puncture needle followed by micro puncture wire and then a micro puncture catheter. Angiogram demonstrated the aforementioned findings. Angioplasty was elected. A 0.035 [place] wire was inserted, and over this, a 7 Stateless short introducer was placed, this was followed by a [8-mm ] angioplasty balloon . Angioplasty was Subclavian segment with elimination of the waist done first in the then in the distal cephalic near the junction. Angioplasty showed significant residual stenosis. A 10 mm angioplasty balloon was now inserted and inflated along the culprit regions first in the subclavian vein and the cephalic. All injections were done with a 3 mils syringe. Elimination of the waist were accomplished with the exception of a very tiny amount of stenosis left subclavian. [place] to me not hemodynamically significant. The final angiogram result was accepted. Hand-held pressure held for 10 minutes. Dressings applied, procedure concluded. Exposure time: 2.8 minutes Radiation: 16.2 ирина bradley per centimeter squared Contrast: 25 mils of Isovue-300, low osmolality. DICTATING PHYSICIAN: ADIA ROWE M.D. cc: ADIA ROWE M.D. ([id number]) >>
--- NOTE | 2017-03-01 16:20 | RADIOLOGY REPORT (SQ) ---
EXAM DESCRIPTION: FISTULAGRAM W/PLASTY; ANGIOPLASTY BRACHIOCEPHALIC COMPLETED DATE/TIME: 03/01/2017 4:11 pm; 03/01/2017 4:12 pm REASON FOR STUDY: T82.858A T82.858A STENOSIS OF OTHER VASCULAR PROSTH DEV/GRFT, INIT COMPARISON: None. FLUOROSCOPY TIME: 2.8 minutes. 26 images saved to PACS. TECHNIQUE: Intra-operative images acquired during surgical procedure to evaluate progress. NUMBER OF IMAGES: 26 images. LIMITATIONS: None. FINDINGS: Imaging in fluoroscopy during left upper extremity dialysis access evaluation and plasty b y Dr. Ocampo . Please refer to the operative report for further details. IMPRESSION: INTRA PROCEDURAL IMAGING ABOVE . COMMENT: Quality ID [id number]: Final reports for procedures using fluoroscopy that document radiation exp osure indices, or exposure time and number of fluorographic images (if radiation exposure indices are not available) Please consult full operative report of the attending physician for description of the procedure. TECHNICAL DOCUMENTATION: JOB ID: [id number] [employer]- All Rights Reserved
== END 2017-03-01 13:35 | disposition home or self-care (01) ==
LOC: SC 11:13
PROVIDERS: ATTEND Surgery
PROC: 057F3DZ Dilation of Left Cephalic Vein with Intraluminal Device, Percutaneous Approach (ICD-10-PCS; principal; 2017-03-01)
DX: T82.858A Stenosis of other vascular prosthetic devices, implants and grafts, initial encounter (principal); Y83.2 Surgical operation with anastomosis, bypass or graft as the cause of abnormal reaction of the patient, or of later complication, without mention of misadventure at the time of the procedure; I12.0 Hypertensive chronic kidney disease with stage 5 chronic kidney disease or end stage renal disease; E11.22 Type 2 diabetes mellitus with diabetic chronic kidney disease; N18.6 End stage renal disease; Z99.2 Dependence on renal dialysis; E11.621 Type 2 diabetes mellitus with foot ulcer; G47.30 Sleep apnea, unspecified; Z88.3 Allergy status to other anti-infective agents; Z87.891 Personal history of nicotine dependence
CPT/HCPCS: 36415; 85027; 80048; 36907; 36902; C1725 ×2; C1752; C1894; Q9967; C1769; J1644 ×2; A9270 ×2; J3490

== ENCOUNTER 2017-08-11 00:56 | Emergency (ER) | payer OTHER, MEDICARE ==
--- NOTE | 2017-08-11 01:31 | RADIOLOGY REPORT (SQ) ---
EXAM DESCRIPTION: CHEST SINGLE VIEW CLINICAL HISTORY: cough COMPARISON: 12/23/2016 FINDINGS: Single frontal view of the chest. Tortuosity of thoracic aorta. Cardiomegaly. Leads overlie the chest. Linear left midlung opacity. No displaced rib fractures identified. Upper abdominal soft tissues are unremarkable. IMPRESSION: 1. Linear left midlung opacity may be related to atelectasis however developing pneumonia could produce this appearance. Continued radiographic follow-up recommended. 2. Cardiomegaly.
--- NOTE | 2017-08-11 01:31 | ER Document Report ---
ED GI/ - General Chief Complaint: Vomiting Stated Complaint: VOMITING Time Seen by Provider: 08/11/17 01:13 Notes: The patient is a 62 yo male, PMHx ESRD (MWF), presents with 1 day of nausea, vomiting and left upper quadrant abdominal pain. He received his full course of dialysis yesterday. EMS provided him with 8 mg Zofran ODT and his nausea is improving. Patient denies hematemesis, fevers, chest pain, shortness of breath , rash, flank pain or back pain. TRAVEL OUTSIDE OF THE [place] 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 Past Medical History - General Information source: Patient - Social History Smoking Status: Unknown if Ever Smoked Family History: Reviewed & Not Pertinent - Past Medical History Cardiac Medical History: Reports: Hx Congestive Heart Failure, Hx Coronary Artery Disease - ANGINA 03/01/17 Denies: Hx Heart Attack, Hx Hypertension - SOMETIMES,NO MEDS Pulmonary Medical History: Denies: Hx Asthma, Hx Bronchitis, Hx COPD, Hx Pneumonia Neurological Medical History: Denies: Hx Cerebrovascular Accident, Hx Seizures Endocrine Medical History: Reports: Hx Diabetes Mellitus Type 2 Renal/ Medical History: Reports: Hx End Stage Renal Disease - Dialysis dependent, Hx Hemodialysis, Hx Renal Insufficiency. Denies: Hx Peritoneal Dialysis GI Medical History: Reports: Hx Gastroesophageal Reflux Disease. Denies: Hx Hepatitis, Hx Hiatal Hernia, Hx Ulcer Musculoskeltal Medical History: Denies Hx Arthritis Psychiatric Medical History: Reports: Hx Depression Infectious Medical History: Denies: Hx Hepatitis Past Surgical History: Reports: Hx Orthopedic Surgery - Right big toe amputation in 2014, left third and fourth toe amputation, Hx Vascular Surgery, Other - Neck surgery in 2012. Denies: Hx Open Heart Surgery, Hx Pacemaker - Immunizations Hx Diphtheria, Pertussis, Tetanus Vaccination: Yes Hx Pneumococcal Vaccination: 02/05/15 Review of Systems - Review of Systems Notes: REVIEW OF SYSTEMS: CONSTITUTIONAL: -fevers, -chills EENT: -eye pain, -difficulty swallowing, -nasal congestion CARDIOVASCULAR: -chest pain, -syncope. RESPIRATORY: -cough, -SOB GASTROINTESTINAL: +LUQ abdominal pain, +nausea, +vomiting, -diarrhea MUSCULOSKELETAL: -back pain, -neck pain SKIN: -rash or skin lesions. HEMATOLOGIC: -easy bruising or bleeding. LYMPHATIC: -swollen, enlarged glands. NEUROLOGICAL: -altered mental status or loss of consciousness, -headache, - neurologic symptoms PSYCHIATRIC: -anxiety, -depression. ALL OTHER SYSTEMS REVIEWED AND NEGATIVE. Physical Exam - Vital signs Vitals: Temp Pulse Resp BP Pulse Ox 98.7 F 66 18 182/90 H 96 08/11/17 00:57 08/11/17 00:57 08/11/17 00:57 08/11/17 00:57 08/11/17 00:57 - Notes Notes: PHYSICAL EXAMINATION: GENERAL: Well-appearing, well-nourished and in no acute distress. HEAD: Atraumatic, normocephalic. EYES: Pupils equal round and reactive to light, extraocular movements intact, sclera anicteric, conjunctiva are normal. ENT: nares patent, oropharynx clear without exudates. Moist mucous membranes. NECK: Normal range of motion, supple without lymphadenopathy LUNGS: Breath sounds clear to auscultation bilaterally and equal. No wheezes rales or rhonchi. HEART: Regular rate and rhythm without murmurs ABDOMEN: Soft, mild LUQ tenderness, normoactive bowel sounds. No guarding, no rebound. No masses appreciated. EXTREMITIES: Normal range of motion, no pitting or edema. No cyanosis. NEUROLOGICAL: Cranial nerves grossly intact. Normal speech, normal gait. Normal sensory and motor exams. PSYCH: Normal mood, normal affect. SKIN: Warm, Dry, normal turgor, no rashes or lesions noted. Course - Re-evaluation Re-evalutation: Patient with 1 day of left upper quadrant abdominal pain after vomiting. EKG does not show any acute ischemic changes and troponins are at baseline levels for him. Blood work is unremarkable, including a normal lipase. After Zofran by EMS, Phenergan and Protonix, he feels much better. Instructed him about using Zofran to help with his nausea and adding Pepcid to help with suspected gastritis. He will follow-up with his primary care physician for further evaluation and treatment. - Vital Signs Vital signs: Temp Pulse Resp BP Pulse Ox 98.7 F 66 22 H 150/64 H 97 08/11/17 00:57 08/11/17 00:57 08/11/17 03:00 08/11/17 03:01 08/11/17 03:01 - Laboratory Result Diagrams: 08/11/17 01:54 08/11/17 01:54 Laboratory results interpreted by me: 08/11/17 08/11/17 01:54 01:54 WBC 3.9 L RBC 3.40 L Hgb 11.2 L Hct 33.8 L MCV 100 H RDW 23.9 H Band Neutrophils % 1 L Monocytes % (Manual) 14 H Eosinophils % (Manual) 13 H Basophils % (Manual) 3 H Sodium 135.6 L Chloride 93 L BUN 27 H Creatinine 6.83 H Est GFR ( Amer) 10 L Est GFR (Non-Af Amer) 8 L Total Bilirubin 1.4 H Creatine Kinase 364 H - Diagnostic Test Radiology reviewed: Image reviewed, Reports reviewed Radiology results interpreted by me: CXR: 1. Linear left midlung opacity may be related to atelectasis however developing pneumonia could produce this appearance. Continued radiographic follow-up recommended. 2. Cardiomegaly. - EKG Interpretation by Me EKG shows normal: Sinus rhythm, QRS Complexes, ST-T Waves Rate: Bradycardia [place]/QRS: RBBB When compared to previous EKG there are: No significant change Discharge - Discharge Clinical Impression: Left upper quadrant pain Nausea and vomiting Qualifiers: Vomiting type: unspecified Vomiting Intractability: non-intractable Qualified Code(s): R11.2 - Nausea with vomiting, unspecified Condition: Stable Disposition: HOME, SELF-CARE Additional Instructions: VOMITING: Vomiting (or nausea without vomiting) can be caused by many other different problems. It can mean that something's wrong with the stomach, such as ulcers or inflammation or the intestinal tract, such as appendicitis. But it can also be a symptom of a problem that has nothing to do with the stomach or intestines. Vomiting is common with severe headaches, earaches, tonsillitis, and kidney infections, etc. We see it with pneumonia or heart attacks. Drugs can cause nausea and vomiting. Many abdominal problems cause vomiting; for example, gallstones, kidney stones, pancreatitis, and intestinal obstruction ( blocked bowels). In most cases, curing the vomiting depends on fixing the problem that caused it. For temporary relief, we may use an anti-nausea medicine. For home use, we can prescribe suppositories, chewable pills, pills that dissolve in the mouth, or liquid anti-nausea drugs. If the vomiting seems to be caused by a problem in the stomach, acid-suppressing drugs may be prescribed as well. It's important to avoid dehydration. Sip small amounts of clear liquids ( soft drinks, tea, broth, etc) . Try to take fluids frequently even if you are vomiting to prevent dehydration. Take increasing amounts of fluid and when liquids are being consumed successfully, advance to small amounts of bland food (toast, soups, mashed potatoes, etc.) until you are able to resume a regular diet. Avoid aspirin, tobacco, and alcohol. If the vomiting worsens, if the problem that's making you vomit worsens, or if there's evidence of bleeding in the stomach (such as black, tarry stool, or bloody or black vomit), you should return immediately. Also, return if abdominal pain worsens or becomes localized to one area or you develop high fever. Call your doctor if you aren't improved in 24 hours. ANTINAUSEA MEDICATION: You have been given a medication to suppress nausea and vomiting. This type of medication can be given as a shot, pill, or suppository. It will usually last for many hours. Pills and shots usually last six to eight hours. For the typical illness, only one or two doses of the medication may be necessary. Mild lightheadedness may occur. This type of medicine can cause drowsiness. Do not drive or operate dangerous machinery while under its influence. Do not mix with alcohol. See your doctor at once if you have muscle spasms or tightness, or uncontrollable motions (particularly of the neck, mouth, or jaw). Persistent vomiting or severe lightheadedness should also be evaluated by the physician. FOLLOW-UP CARE: If you have been referred to a physician for follow-up care, call the physician s office for an appointment as you were instructed or within the next two days. If you experience worsening or a significant change in your symptoms, notify the physician immediately or return to the Emergency Department at any time for re-evaluation. ABDOMINAL PAIN: There are many causes of abdominal pain. Pain can mean a serious problem requiring surgery (such as appendicitis). It can also be an innocent problem that goes away on its own (such as a viral infection). Often, time must pass to determine the cause of pain. The physician does not feel that hospitalization is necessary, at present. Things may change within the next 24 hours. Call the doctor or come back for re- examination if any problems occur, such as: (1) Pain that becomes more severe, steady, or becomes concentrated in one specific area. Also, pain that is more severe with movement or coughing. (2) Vomiting that persists or becomes more frequent. (3) Blood in the vomitus, urine, or bowel movements. Blood in the stool may have a tarry or black appearance. (4) Shaking chills or fever greater than 100 degrees F. (5) The abdomen becomes more distended or swollen. (6) Bowel movements cease. (7) Failure to improve as expected. NORMAL EXAM AND WORKUP: At this time, your examination and workup show no significant abnormality. No significant abnormal physical findings are noted. All laboratory, EKG, and imaging (x-ray, CT scans, ultrasound) studies that were ordered show no significant abnormality. Although your examination and all studies that were ordered showed no significant abnormal finding, there are no examinations and no studies that are 100% accurate. There is always the possibility that some abnormality could exist and not be detected with physical examination or within the limits and capabilities of laboratory and other studies. You should return or follow up as you were instructed on your visit today for further evaluation if your symptoms do not resolve. FOLLOW-UP CARE: If you have been referred to a physician for follow-up care, call the physician s office for an appointment as you were instructed or within the next two days. If you experience worsening or a significant change in your symptoms, notify the physician immediately or return to the Emergency Department at any time for re-evaluation. Prescriptions: Famotidine [Pepcid 20 mg Tablet] 20 mg PO BID #12 tablet Ondansetron [Zofran Odt 4 mg Tablet] 1 - 2 tab PO Q4H PRN #15 tab.rapdis PRN Reason: For Nausea/Vomiting Forms: Elevated Blood Pressure Referrals: FEI ZULETA MD [Primary Care Provider] - Follow up as needed
[2017-08-11 02:04] LABS: HEMATOCRIT 33.8 % (37.9-51.0); HEMOGLOBIN 11.2 g/dL (13.5-17.0); MEAN CORPUSCULAR HGB CONC 33.2 g/dL (32.0-36.0); MEAN CORPUSCULAR VOLUME 100 fl (80-97); PLATELET COUNT 161 10^3/uL (150-450); RED CELL DISTRIBUTION WIDTH 23.9 % (11.5-14.0); WHITE BLOOD COUNT 3.9 10^3/uL (4.0-10.5)
[2017-08-11] MEDS ORDERED: PANTOPRAZOLE SODIUM 40 MG VIAL IV ONE (02:08)
[2017-08-11 02:22] LABS: ALANINE AMINOTRANSFERASE 29 U/L (21-72); ALBUMIN 4.3 g/dL (3.5-5.0); ALKALINE PHOSPHATASE 53 U/L (38-126); ANION GAP 14 (5-19); ASPARTATE AMINO TRANSFERASE 33 U/L (17-59); BILIRUBIN,DIRECT 0.3 mg/dL (0.0-0.4); BILIRUBIN,TOTAL 1.4 mg/dL (0.2-1.3); BLOOD UREA NITROGEN 27 mg/dL (7-20); CALCIUM 9.1 mg/dL (8.4-10.2); CARBON DIOXIDE 29 mmol/L (22-30); CHLORIDE 93 mmol/L (98-107); CREATINE KINASE 364 U/L (55-170); GLUCOSE 88 mg/dL (75-110); POTASSIUM 4.3 mmol/L (3.6-5.0); SODIUM 135.6 mmol/L (137-145); TOTAL PROTEIN 7.2 g/dL (6.3-8.2)
[2017-08-11 02:27] LABS: ABSOLUTE LYMPHOCYTES# (MANUAL) 0.5 10^3/uL (0.5-4.7); ABSOLUTE MONOCYTES # (MANUAL) 0.5 10^3/uL (0.1-1.4); ABSOLUTE NEUTROPHILS# (MANUAL) 2.2 10^3/uL (1.7-8.2); BAND NEUTROPHILS % (MANUAL) 1 % (3-5); BASOPHILS % (MANUAL) 3 % (0-2); EOSINOPHILS % (MANUAL) 13 % (0-6); LYMPHOCYTES % (MANUAL) 13 % (13-45); MONOCYTES % (MANUAL) 14 % (3-13); SEGMENTED NEUTROPHILS % (MAN) 56 % (42-78); TOTAL CELLS COUNTED 100
[2017-08-11 02:30] LABS: ANISOCYTOSIS 3+; OVALOCYTES 1+; POIKILOCYTOSIS 1+; SCHISTOCYTES 1+; TOXIC GRANULATION 1+
[2017-08-11 02:31] LABS: PLATELET COMMENT ADEQUATE; PLATELET LARGE PRESENT
[2017-08-11] MEDS ORDERED: PROMETHAZINE HCL 25 MG TABLET PO ONE (03:07)
[2017-08-11 04:58] VITALS: BP 158/63
--- NOTE | 2017-08-11 10:36 | EKG REPORT ---
SEVERITY:- ABNORMAL ECG - SINUS RHYTHM ATRIAL PREMATURE COMPLEX FIRST DEGREE AV BLOCK RIGHT BUNDLE BRANCH BLOCK : Confirmed by: Rachid Eugene 11-Aug-2017 10:36:13
== END 2017-08-11 04:58 | disposition home or self-care (01) ==
LOC: ER 00:56
DX: R11.2 Nausea with vomiting, unspecified (principal); R10.12 Left upper quadrant pain; I45.10 Unspecified right bundle-branch block; R00.1 Bradycardia, unspecified; I25.10 Atherosclerotic heart disease of native coronary artery without angina pectoris; E11.22 Type 2 diabetes mellitus with diabetic chronic kidney disease; N18.6 End stage renal disease; Z99.2 Dependence on renal dialysis; Z87.19 Personal history of other diseases of the digestive system
CPT/HCPCS: 93005; 99284; 96374; 36415; 82550; 85025; 80053; 84484; 71045; 93010; S0164

== ENCOUNTER → 2017-08-18 | Outpatient (CLI) | payer MEDICARE ==
--- NOTE | 2017-08-18 09:47 | RADIOLOGY REPORT (SQ) ---
EXAM DESCRIPTION: U/S ABDOMEN LIMITED W/O DOP COMPLETED DATE/TIME: 08/18/2017 9:23 am REASON FOR STUDY: R10.12 LEFT UPPER QUADRANT PAIN R10.12 LEFT UPPER QUADRANT PAIN R10.2 PELVIC AND PERINEAL PAIN COMPARISON: CT dated 12/14/2016. TECHNIQUE: Dynamic and static grayscale images acquired of the left upper quadrant acquired and juanjose rded on PACS. Additional selected color Doppler and spectral images recorded. LIMITATIONS: None. FINDINGS: LEFT KIDNEY: Normal size. Normal echogenicity. Cortical cysts measuring 1.8 cm and 2.1 c m. No solid or suspicious masses. No hydronephrosis. No calcifications. SPLEEN: Normal size. No focal lesions. OTHER FINDINGS: No other significant finding. IMPRESSION: CORTICAL CYSTS IN THE LEFT KIDNEY. NO HYDRONEPHROSIS OR OTHER SIGNIFICANT FINDINGS. UN REMARKABLE APPEARANCE OF THE SPLEEN. TECHNICAL DOCUMENTATION: JOB ID: [id number] [employer]- All Rights Reserved Reading location - IP/workstation name: [email or web address]
== END ==
LOC: EDBD → RAD 08:54 → MERGE 09:30
PROVIDERS: ATTEND Family Medicine
DX: R10.12 Left upper quadrant pain (principal); R10.2 Pelvic and perineal pain
CPT/HCPCS: 76705

== ENCOUNTER → 2017-09-14 | Outpatient (CLI) | payer MEDICARE ==
--- NOTE | 2017-09-14 20:06 | RADIOLOGY REPORT (SQ) ---
EXAM DESCRIPTION: MRI HEAD WITHOUT COMPLETED DATE/TIME: 09/14/2017 6:57 pm REASON FOR STUDY: DIZZINESS AND GIDDINESS R42 DIZZINESS AND GIDDINESS COMPARISON: None. TECHNIQUE: Multiplanar imaging includes non-contrasted T1, T2, FLAIR, and diffusion with ADC map seq uences. Images stored on PACS. LIMITATIONS: None. FINDINGS: ANATOMY: No anomalies. Normal vascular flow voids. Pituitary fossa normal. CSF SPACES: Atrophy induced prominence of ventricles and CSF spaces. CEREBRUM: High signal intensity lesions scattered throughout the white matter on FLAIR imaging with d istribution suggesting micro-vascular ischemic changes. No evidence of hemorrhage, mass, or extraaxi al fluid collection. POSTERIOR FOSSA: No signal alteration. No hemorrhage. No edema, masses or mass effect. Internal aryan tory canals, cerebello-pontine angles, mastoids normal. DIFFUSION IMAGING: Negative for acute or sub-acute infarction. ORBITS: No masses. Globes normal. PARANASAL SINUSES: Chronic sinus disease. OTHER: No other significant finding. IMPRESSION: ATROPHY AND CHRONIC MICRO-VASCULAR ISCHEMIC CHANGES. OTHERWISE NORMAL MRI OF THE BRAIN W ITHOUT INTRAVENOUS GADOLINIUM CONTRAST. EVIDENCE OF ACUTE STROKE: No TECHNICAL DOCUMENTATION: JOB ID: [id number] [employer]- All Rights Reserved Reading location - IP/workstation name: [email or web address]
== END ==
LOC: RAD 17:34
PROVIDERS: ATTEND Family Medicine
DX: R42 Dizziness and giddiness (principal)
CPT/HCPCS: 70551

== ENCOUNTER 2017-10-15 02:23 | Emergency (ER) | payer OTHER, MEDICARE ==
--- NOTE | 2017-10-15 02:35 | ER Document Report ---
ED General - General Chief Complaint: Arm Problem Stated Complaint: ARMS JERKING Time Seen by Provider: 10/15/17 02:28 Notes: Patient is a 62-year-old female presents with complaint of muscle squeezing and cramping in both his arms. He says he also gets some in the legs but is mostly in the arms. He said this started during dialysis and is continued throughout the night. No leg squeezing or cramping. No difficulty breathing. He said he felt the dialysis otherwise once is normal. No recent fevers or infections. Numbness into the hands. No other complaints at this time. TRAVEL OUTSIDE OF THE [place] 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 Past Medical History - Social History Smoking Status: Never Smoker Frequency of alcohol use: None Drug Abuse: None Family History: Reviewed & Not Pertinent - Past Medical History Cardiac Medical History: Reports: Hx Congestive Heart Failure, Hx Coronary Artery Disease - ANGINA 03/01/17 Denies: Hx Heart Attack, Hx Hypertension - SOMETIMES,NO MEDS Pulmonary Medical History: Denies: Hx Asthma, Hx Bronchitis, Hx COPD, Hx Pneumonia Neurological Medical History: Denies: Hx Cerebrovascular Accident, Hx Seizures Endocrine Medical History: Reports: Hx Diabetes Mellitus Type 2 Renal/ Medical History: Reports: Hx End Stage Renal Disease - Dialysis dependent, Hx Hemodialysis, Hx Renal Insufficiency. Denies: Hx Peritoneal Dialysis GI Medical History: Reports: Hx Gastroesophageal Reflux Disease. Denies: Hx Hepatitis, Hx Hiatal Hernia, Hx Ulcer Musculoskeltal Medical History: Denies Hx Arthritis Psychiatric Medical History: Reports: Hx Depression Infectious Medical History: Denies: Hx Hepatitis Past Surgical History: Reports: Hx Orthopedic Surgery - Right big toe amputation in 2014, left third and fourth toe amputation, Hx Vascular Surgery, Other - Neck surgery in 2012. Denies: Hx Open Heart Surgery, Hx Pacemaker - Immunizations Hx Diphtheria, Pertussis, Tetanus Vaccination: Yes Hx Pneumococcal Vaccination: 02/05/15 Review of Systems - Review of Systems Notes: My Normal Review Basic REVIEW OF SYSTEMS: CONSTITUTIONAL : Denies fever, chills, or sweats. Denies recent illness. EENT: Denies eye, ear, throat, or mouth pain or symptoms. Denies nasal or sinus congestion. CARDIOVASCULAR: Denies chest pain. RESPIRATORY: Denies cough, cold, or chest congestion. Denies shortness of breath, difficulty breathing, or wheezing. GASTROINTESTINAL: Denies abdominal pain. Denies nausea, vomiting, or diarrhea. GENITOURINARY: Denies difficulty urinating, painful urination, burning, frequency, or blood in urine. MUSCULOSKELETAL: Cramping in arms. SKIN: Denies rash or skin lesions. NEUROLOGICAL: Denies altered mental status or loss of consciousness. Denies headache. Denies weakness or paralysis or loss of use of either side. Denies problems with gait or speech. Denies sensory or motor loss. ALL OTHER SYSTEMS REVIEWED AND NEGATIVE. Physical Exam - Vital signs Vitals: Temp Pulse Resp Pulse Ox 98.5 F 59 L 20 92 10/15/17 02:30 10/15/17 02:30 10/15/17 02:30 10/15/17 02:30 - Notes Notes: General Appearance: Well nourished, alert, cooperative, no acute distress, no obvious discomfort. Well-appearing. Sitting at bedside in no distress Vitals: reviewed, See vital signs table. Head: no swelling or tenderness to the head Eyes: PERRL, EOMI, Conjuctiva clear Mouth: No decreasd moisture Lungs: No wheezing, No rales, No rhonci, No accessory muscle use, good air exchange bilaterally. Heart: Normal rate, Regular rythm, No murmur, no rub Abdomen: Normal BS, soft, No rigidity, No abdominal tenderness, No guarding, no rebound, no abdominal masses, no organomegaly Extremities: Patient does not have obvious visual twitching of the arms or muscles. We will occasionally move his arm quickly very quickly. He will occasionally do this with his leg as well. He feels a squeezing or cramping type pain in his arms is how he describes it. No significant tenderness palpation of his arms. No swelling or edema. There is a fistula left upper arm with the good palpable thrill. Distal pulses in both upper extremities are normal. Normal distal sensation and good religion department chair strength in both upper extremities. Skin: warm, dry, appropriate color, no rash Neuro: speech clear, oriented x 3, normal affect, responds appropriately to questions. Cranial nerves II through XII intact. On exam patient is standing at bedside and walking back and forth with normal gait. His good strength in all 4 extremities. Course - Re-evaluation Re-evalutation: 10/15/17 03:39 On into the room the patient is sleeping comfortably. I did wake him up to talk to him. I wake him up he starts occasionally moving his arm and and kicking his leg. It is at times almost dystonic appearing however it is not continuous and is very intermittent and seems to be only when patient is awake. I did review the patient's med list. On any medications that should cause dystonia. In his records did show that he has been on Reglan. Patient says he has not had this medication a long time and is no longer on it. I will give him a dose of Benadryl to see if it does help his symptoms. We will then reassess. 10/15/17 05:20 Benadryl did not improve him. I therefore gave him a dose of Valium and this allows him to sleep. When he is sleeping he does not have any of the muscle twitching. When he wakes up in his me talking he starts having muscle twitching. This is somewhat atypical and odd. She is on any medications that would cause a dystonic reaction at this time. His symptoms started during dialysis. Does not have a headache or any focal neurologic deficits to suggest stroke or brain bleed. He may have some dehydration and had too much fluid taken off during dialysis. I informed him and his that if this is the case with particular 24 hours before his hydration status improves. Do not feel to appropriate given the IV fluids right now being that he is normotensive and also it is the weekend and therefore he will not have dialysis again until Tuesday. I would hate to give him some IV fluids now that the potentially cause him to have respiratory distress and pulmonary edema before his next dialysis appointment. Patient's is understanding of this. Patient is looking improved and therefore will be discharged home by strongly encourage him return to ER if he has recurrent worsening tremors, fevers, or if he feels unwell in any way. - Vital Signs Vital signs: Temp Pulse Resp BP Pulse Ox 98.5 F 59 L 20 92 10/15/17 02:30 10/15/17 02:30 10/15/17 02:30 10/15/17 02:30 - Laboratory Result Diagrams: 10/15/17 02:45 10/15/17 02:45 Laboratory results interpreted by me: 10/15/17 10/15/17 02:45 02:45 RBC 3.70 L Hgb 11.9 L Hct 36.4 L MCV 98 H RDW 24.0 H Eosinophils % (Manual) 9 H Carbon Dioxide 31 H BUN 39 H Creatinine 9.72 H Est GFR ( Amer) 7 L Est GFR (Non-Af Amer) 5 L Discharge - Discharge Clinical Impression: Muscle tremor, CKD (chronic kidney disease) stage V requiring chronic dialysis Condition: Good Disposition: HOME, SELF-CARE Additional Instructions: Your muscle twitching should be gone within the next 12 to 24 hours. Please return to the ER immediately if you develop severe headache, worsening muscle twitching, fevers, or feel that you are still having significant twitching after 24 hours. Referrals: FEI ZULETA MD [Primary Care Provider] - 10/17/17
[2017-10-15 03:06] LABS: HEMATOCRIT 36.4 % (37.9-51.0); HEMOGLOBIN 11.9 g/dL (13.5-17.0); MEAN CORPUSCULAR HEMOGLOBIN 32.3 pg (27.0-33.4); MEAN CORPUSCULAR HGB CONC 32.8 g/dL (32.0-36.0); MEAN CORPUSCULAR VOLUME 98 fl (80-97); PLATELET COUNT 173 10^3/uL (150-450); WHITE BLOOD COUNT 5.4 10^3/uL (4.0-10.5)
[2017-10-15 03:10] LABS: ANION GAP 14 (5-19); BLOOD UREA NITROGEN 39 mg/dL (7-20); CALCIUM 9.9 mg/dL (8.4-10.2); CARBON DIOXIDE 31 mmol/L (22-30); CHLORIDE 99 mmol/L (98-107); GLUCOSE 84 mg/dL (75-110); POTASSIUM 4.7 mmol/L (3.6-5.0); SODIUM 143.8 mmol/L (137-145)
[2017-10-15] MEDS ORDERED: NORMAL SALINE 1000 ML 1,000 ML IV ONE (03:10)
[2017-10-15 03:23] LABS: ABSOLUTE MONOCYTES # (MANUAL) 0.5 10^3/uL (0.1-1.4); ABSOLUTE NEUTROPHILS# (MANUAL) 3.3 10^3/uL (1.7-8.2); BASOPHILS % (MANUAL) 2 % (0-2); EOSINOPHILS % (MANUAL) 9 % (0-6); LYMPHOCYTES % (MANUAL) 18 % (13-45); MONOCYTES % (MANUAL) 10 % (3-13); SEGMENTED NEUTROPHILS % (MAN) 61 % (42-78); TOTAL CELLS COUNTED 100
[2017-10-15 03:26] LABS: ANISOCYTOSIS 3+; OVALOCYTES 1+; PLATELET COMMENT ADEQUATE; PLATELET LARGE PRESENT; POIKILOCYTOSIS 1+
[2017-10-15] MEDS ORDERED: DIPHENHYDRAMINE HCL 50 MG/ML VIAL IV ONE (03:38)
[2017-10-15] MEDS ORDERED: DIAZEPAM INJ 10 MG/2 ML DISP.SYRIN IV ONE (04:30)
[2017-10-15 05:59] VITALS: BP 134/72
== END 2017-10-15 05:59 | disposition home or self-care (01) ==
LOC: ER 02:23
DX: R25.1 Tremor, unspecified (principal); E11.22 Type 2 diabetes mellitus with diabetic chronic kidney disease; N18.5 Chronic kidney disease, stage 5; Z99.2 Dependence on renal dialysis; I25.10 Atherosclerotic heart disease of native coronary artery without angina pectoris
CPT/HCPCS: 99284; 96374; 96375; 36415; 83735; 85025; 80048; J3360; J1200

== ENCOUNTER 2017-10-16 09:11 | Emergency (ER) | payer OTHER, MEDICARE ==
[2017-10-16] MEDS ORDERED: DIAZEPAM INJ 10 MG/2 ML DISP.SYRIN IV ONE ×2 (09:46→13:46)
--- NOTE | 2017-10-16 10:45 | ER Document Report ---
ED General - General Chief Complaint: Tremor Stated Complaint: CHILLS Time Seen by Provider: 10/16/17 09:38 Mode of Arrival: Ambulatory Information source: Patient, [facility] Records Notes: 62-year-old male on dialysis presents with complaints of tremors over the past 2 days. Patient denies any fevers or chills denies any night having or diarrhea. Patient notes is involuntary movement of the upper extremities TRAVEL OUTSIDE OF THE [place] 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 Past Medical History - Social History Smoking Status: Never Smoker Cigarette use (# per day): No Chew tobacco use (# tins/day): No Smoking Education Provided: No Family History: Reviewed & Not Pertinent - Past Medical History Cardiac Medical History: Reports: Hx Congestive Heart Failure, Hx Coronary Artery Disease - ANGINA 03/01/17 Denies: Hx Heart Attack, Hx Hypertension - SOMETIMES,NO MEDS Pulmonary Medical History: Denies: Hx Asthma, Hx Bronchitis, Hx COPD, Hx Pneumonia Neurological Medical History: Denies: Hx Cerebrovascular Accident, Hx Seizures Endocrine Medical History: Reports: Hx Diabetes Mellitus Type 2 Renal/ Medical History: Reports: Hx End Stage Renal Disease - Dialysis dependent, Hx Hemodialysis, Hx Renal Insufficiency. Denies: Hx Peritoneal Dialysis GI Medical History: Reports: Hx Gastroesophageal Reflux Disease. Denies: Hx Hepatitis, Hx Hiatal Hernia, Hx Ulcer Musculoskeltal Medical History: Denies Hx Arthritis Psychiatric Medical History: Reports: Hx Depression Infectious Medical History: Denies: Hx Hepatitis Past Surgical History: Reports: Hx Orthopedic Surgery - Right big toe amputation in 2014, left third and fourth toe amputation, Hx Vascular Surgery, Other - Neck surgery in 2012. Denies: Hx Open Heart Surgery, Hx Pacemaker - Immunizations Hx Diphtheria, Pertussis, Tetanus Vaccination: Yes Hx Pneumococcal Vaccination: 02/05/15 Review of Systems - Review of Systems Notes: REVIEW OF SYSTEMS: CONSTITUTIONAL : Denies fever, chills, or sweats. Denies recent illness. EENT: Denies eye, ear, throat, or mouth pain or symptoms. Denies nasal or sinus congestion or discharge. Denies throat, tongue, or mouth swelling or difficulty swallowing. CARDIOVASCULAR: Denies chest pain. Denies palpitations or racing or irregular heart beat. Denies ankle edema. RESPIRATORY: Denies cough, cold, or chest congestion. Denies shortness of breath, difficulty breathing, or wheezing. GASTROINTESTINAL: Denies abdominal pain or distention. Denies nausea, vomiting , or diarrhea. Denies blood in vomitus, stools, or per rectum. Denies black, tarry stools. Denies constipation. GENITOURINARY: Denies difficulty urinating, painful urination, burning, frequency, blood in urine, or discharge. MUSCULOSKELETAL: Denies back or neck pain or stiffness. Denies joint pain or swelling. SKIN: Denies rash, lesions or sores. HEMATOLOGIC : Denies easy bruising or bleeding. LYMPHATIC: Denies swollen, enlarged glands. NEUROLOGICAL: Admits to shaking episodes PSYCHIATRIC: Denies anxiety or stress. Denies depression, suicidal ideation, or homicidal ideation. ALL OTHER SYSTEMS REVIEWED AND NEGATIVE. Dictation was performed using [employer] voice recognition software PHYSICAL EXAMINATION: GENERAL: Well-appearing, well-nourished and in no acute distress. HEAD: Atraumatic, normocephalic. EYES: Pupils equal round and reactive to light, extraocular movements intact, sclera anicteric, conjunctiva are normal. ENT: Nares patent, oropharynx clear without exudates. Moist mucous membranes. NECK: Normal range of motion, supple without lymphadenopathy LUNGS: Breath sounds clear to auscultation bilaterally and equal. No wheezes rales or rhonchi. HEART: Regular rate and rhythm without murmurs ABDOMEN: Soft, nontender, nondistended abdomen. No guarding, no rebound. No masses appreciated. Musculoskeletal: Normal range of motion, no pitting or edema. No cyanosis. NEUROLOGICAL: Cranial nerves grossly intact. Normal speech, normal gait. Normal sensory, motor exams involuntarily spasms noted PSYCH: Normal mood, normal affect. SKIN: Warm, Dry, normal turgor, no rashes or lesions noted. 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 Panda would like the patient to follow-up in her office with Dr. Gamez at [phone] - Vital Signs Vital signs: Temp Pulse Resp BP Pulse Ox 98.1 F 62 9 L 186/73 H 100 10/16/17 09:19 10/16/17 09:19 10/16/17 14:03 10/16/17 14:03 10/16/17 14:03 - Laboratory Result Diagrams: 10/16/17 10:29 10/16/17 12:05 Laboratory results interpreted by me: 10/16/17 10/16/17 10/16/17 10:29 12:05 12:23 RBC 3.68 L Hgb 11.9 L Hct 36.2 L MCV 98 H RDW 24.2 H Eosinophils % 11.4 H Potassium 5.1 H BUN 49 H Creatinine 12.22 H Est GFR ( Amer) 5 L Est GFR (Non-Af Amer) 4 L Direct Bilirubin 0.7 H Urine Protein >=500 H Urine Glucose (UA) >=500 H Discharge - Discharge Clinical Impression: Chorea, End stage renal disease Condition: Stable Disposition: HOME, SELF-CARE Additional Instructions: Dr. Panda would like you to follow-up in her office with Dr. Gamez at [phone] Prescriptions: Haloperidol [Haldol 2 Mg Tablet] 2 mg PO BID #10 tablet Referrals: FEI ZULETA MD [Primary Care Provider] - Follow up as needed
[2017-10-16 11:06] LABS: ABSOLUTE BASOPHILS # (AUTO) 0.1 10^3/uL (0.0-0.2); ABSOLUTE EOSINOPHILS # (AUTO) 0.5 10^3/uL (0.0-0.6); ABSOLUTE LYMPHOCYTES (AUTO) 0.7 10^3/uL (0.5-4.7); ABSOLUTE MONOCYTES (AUTO) 0.6 10^3/uL (0.1-1.4); ABSOLUTE NEUT (AUTO) 2.9 10^3/uL (1.7-8.2); BASOPHILS % (AUTO) 1.1 % (0-2); EOSINOPHILS % (AUTO) 11.4 % (0-6); HEMATOCRIT 36.2 % (37.9-51.0); HEMOGLOBIN 11.9 g/dL (13.5-17.0); LYMPHOCYTES % (AUTO) 14.3 % (13-45); MEAN CORPUSCULAR HEMOGLOBIN 32.3 pg (27.0-33.4); MEAN CORPUSCULAR HGB CONC 32.8 g/dL (32.0-36.0); MEAN CORPUSCULAR VOLUME 98 fl (80-97); MONOCYTES % (AUTO) 12.3 % (3-13); PLATELET COUNT 193 10^3/uL (150-450); RED BLOOD COUNT 3.68 10^6/uL (4.35-5.55); RED CELL DISTRIBUTION WIDTH 24.2 % (11.5-14.0); SEGMENTED NEUTROPHILS % (AUTO) 60.9 % (42-78); TOTAL CELLS COUNTED % (AUTO) 100 %; WHITE BLOOD COUNT 4.8 10^3/uL (4.0-10.5)
[2017-10-16 11:39] LABS: ANISOCYTOSIS 3+; OVALOCYTES 1+; PLATELET COMMENT ADEQUATE; POIKILOCYTOSIS 1+; TARGET CELLS SLIGHT
--- NOTE | 2017-10-16 11:39 | RADIOLOGY REPORT (SQ) ---
EXAM DESCRIPTION: CHEST SINGLE VIEW COMPLETED DATE/TIME: 10/16/2017 11:28 am REASON FOR STUDY: dialysis, PER DR. HELMS CHANGE TO PORTABLE COMPARISON: 08/11/2017 NUMBER OF VIEWS: One view. TECHNIQUE: Single frontal radiographic view of the chest acquired. LIMITATIONS: None. FINDINGS: LUNGS AND PLEURA: Mild interstitial edema. No consolidation, significant pleural effusion , or pneumothorax. MEDIASTINUM AND HILAR STRUCTURES: No masses or contour abnormality. HEART AND VASCULATURE: Cardiac enlargement. Vascular congestion. BONES: No acute findings. HARDWARE: None in the chest. OTHER: No other significant finding. IMPRESSION: MILD INTERSTITIAL EDEMA. TECHNICAL DOCUMENTATION: JOB ID: [id number] [employer]- All Rights Reserved Reading location - IP/workstation name: [email or web address]
[2017-10-16 12:41] LABS: ALANINE AMINOTRANSFERASE 26 U/L (21-72); ALKALINE PHOSPHATASE 51 U/L (38-126); ANION GAP 19 (5-19); ASPARTATE AMINO TRANSFERASE 27 U/L (17-59); BILIRUBIN,DIRECT 0.7 mg/dL (0.0-0.4); BILIRUBIN,TOTAL 0.9 mg/dL (0.2-1.3); BLOOD UREA NITROGEN 49 mg/dL (7-20); CALCIUM 9.7 mg/dL (8.4-10.2); CARBON DIOXIDE 25 mmol/L (22-30); CHLORIDE 100 mmol/L (98-107); GLUCOSE 90 mg/dL (75-110); POTASSIUM 5.1 mmol/L (3.6-5.0); TOTAL PROTEIN 6.8 g/dL (6.3-8.2)
[2017-10-16 12:48] LABS: APPEARANCE,URINE CLEAR; BILIRUBIN,URINE NEGATIVE (NEGATIVE); COLOR,URINE YELLOW; GLUCOSE, URINE >=500 mg/dL (NEGATIVE); KETONES,URINE NEGATIVE (NEGATIVE); LEUKOCYTE ESTERASE,URINE NEGATIVE (NEGATIVE); NITRITE,URINE NEGATIVE (NEGATIVE); PROTEIN,URINE >=500 mg/dL (NEGATIVE); URINE SPECIFIC GRAVITY 1.013; UROBILINOGEN,URINE NEGATIVE mg/dL (<2.0)
[2017-10-16] MEDS ORDERED: DIPHENHYDRAMINE HCL 50 MG/ML VIAL IV ONE (13:21)
--- NOTE | 2017-10-16 13:33 | RADIOLOGY REPORT (SQ) ---
EXAM DESCRIPTION: CT HEAD WITHOUT COMPLETED DATE/TIME: 10/16/2017 1:21 pm REASON FOR STUDY: tremors COMPARISON: MRI from 09/14/2017 TECHNIQUE: Axial images acquired through the brain without intravenous contrast. Images reviewed wi th bone, brain and subdural windows. Images stored on PACS. All CT scanners at this facility use dose modulation, iterative reconstruction, and/or weight based d osing when appropriate to reduce radiation dose to as low as reasonably achievable (ALARA). [facility]: Dose Right [facility]: CareDose [facility]: Dose Right [facility]: Teradose 4D [facility]: [email or web address] RADIATION DOSE: mGy. LIMITATIONS: None. FINDINGS: VENTRICLES: Prominent. CEREBRUM: No masses. No hemorrhage. No midline shift. Areas of low density in the white matter mos t likely due to chronic micro-vascular ischemic change. No evidence for acute infarction. CEREBELLUM: No masses. No hemorrhage. No alteration of density. No evidence for acute infarction. EXTRAAXIAL SPACES: Age-related involutional change. No fluid collections. No masses. ORBITS AND GLOBE: No intra- or extraconal masses. Normal contour of globe without masses. CALVARIUM: No fracture. PARANASAL SINUSES: No fluid or mucosal thickening. SOFT TISSUES: No mass or hematoma. OTHER: No other significant finding. IMPRESSION: NO ACUTE INTRACRANIAL PROCESS. NO SIGNIFICANT CHANGE FROM RECENT MRI. EVIDENCE OF ACUTE STROKE: NO. TECHNICAL DOCUMENTATION: JOB ID: [id number] Quality ID # [id number]: Final reports with documentation of one or more dose reduction techniques (e.g., Au tomated exposure control, adjustment of the mA and/or kV according to patient size, use of iterative reconstruction technique) 2010 [employer]- All Rights Reserved Reading location - IP/workstation name: [email or web address]
[2017-10-16 14:05] LABS: FREE T3 3.52 pg/mL (2.77-5.27); FREE T4 (FREE THYROXINE) 1.37 ng/dL (0.78-2.19)
[2017-10-16 14:18] LABS: THYROID STIMULATING HORMONE 0.85 uIU/mL (0.47-4.68)
[2017-10-16] MEDS ORDERED: HALOPERIDOL LACTATE INJ 5 MG/1 ML VIAL IV ONE (15:01)
[2017-10-16 16:11] VITALS: BP 165/74
--- NOTE | 2017-10-16 16:45 | EKG REPORT ---
SEVERITY:- ABNORMAL ECG - SINUS RHYTHM FIRST DEGREE AV BLOCK RIGHT BUNDLE BRANCH BLOCK : Confirmed by: Marco Antonio Padilla MD 16-Oct-2017 16:44:41
== END 2017-10-16 16:11 | disposition home or self-care (01) ==
LOC: ER 09:11
DX: G25.5 Other chorea (principal); E11.22 Type 2 diabetes mellitus with diabetic chronic kidney disease; N18.6 End stage renal disease; I50.9 Heart failure, unspecified; Z99.2 Dependence on renal dialysis; Z88.3 Allergy status to other anti-infective agents; Z89.411 Acquired absence of right great toe
CPT/HCPCS: 93005; 96376; 99284; 96374; 96375; 36415; 84439; 84443; 85025; 80053; 81001; 84481; 71045; 70450; 93010; J3360; J1200; J1630

== ENCOUNTER 2017-10-18 21:47 | Emergency (ER) | payer OTHER, MEDICARE ==
[2017-10-18 23:23] LABS: ABSOLUTE BASOPHILS # (AUTO) 0.1 10^3/uL (0.0-0.2); ABSOLUTE EOSINOPHILS # (AUTO) 0.3 10^3/uL (0.0-0.6); ABSOLUTE LYMPHOCYTES (AUTO) 0.7 10^3/uL (0.5-4.7); ABSOLUTE MONOCYTES (AUTO) 0.6 10^3/uL (0.1-1.4); ABSOLUTE NEUT (AUTO) 1.9 10^3/uL (1.7-8.2); BASOPHILS % (AUTO) 1.5 % (0-2); HEMOGLOBIN 12.3 g/dL (13.5-17.0); LYMPHOCYTES % (AUTO) 20.6 % (13-45); MEAN CORPUSCULAR HEMOGLOBIN 31.7 pg (27.0-33.4); MEAN CORPUSCULAR HGB CONC 32.3 g/dL (32.0-36.0); MEAN CORPUSCULAR VOLUME 98 fl (80-97); PLATELET COUNT 158 10^3/uL (150-450); RED BLOOD COUNT 3.87 10^6/uL (4.35-5.55); RED CELL DISTRIBUTION WIDTH 24.7 % (11.5-14.0); SEGMENTED NEUTROPHILS % (AUTO) 51.9 % (42-78); TOTAL CELLS COUNTED % (AUTO) 100 %; WHITE BLOOD COUNT 3.6 10^3/uL (4.0-10.5)
[2017-10-18 23:39] LABS: ALANINE AMINOTRANSFERASE 25 U/L (21-72); ALBUMIN 4.5 g/dL (3.5-5.0); ALKALINE PHOSPHATASE 49 U/L (38-126); ANION GAP 18 (5-19); ASPARTATE AMINO TRANSFERASE 29 U/L (17-59); BILIRUBIN,DIRECT 0.7 mg/dL (0.0-0.4); BILIRUBIN,TOTAL 0.9 mg/dL (0.2-1.3); BLOOD UREA NITROGEN 38 mg/dL (7-20); CALCIUM 10.8 mg/dL (8.4-10.2); CARBON DIOXIDE 29 mmol/L (22-30); CHLORIDE 97 mmol/L (98-107); CREATINE KINASE 281 U/L (55-170); GLUCOSE 103 mg/dL (75-110); POTASSIUM 4.6 mmol/L (3.6-5.0); TOTAL PROTEIN 7.8 g/dL (6.3-8.2)
[2017-10-18 23:48] LABS: CREATINE KINASE MB 5.4 ng/mL (<4.55); TOXIC GRANULATION SLIGHT
[2017-10-18 23:49] LABS: ACANTHOCYTES 2+; ANISOCYTOSIS 3+; BURR CELLS 2+; HELMET CELLS SLIGHT; POIKILOCYTOSIS 2+; POLYCHROMASIA SLIGHT
[2017-10-18 23:50] LABS: HOWELL-JOLLY BODIES PRESENT; OVALOCYTES SLIGHT; PLATELET COMMENT ADEQUATE; PLATELET GIANT PRESENT; PLATELET LARGE PRESENT; SCHISTOCYTES 1+; TARGET CELLS 1+; TEAR DROP CELLS 1+
[2017-10-18 23:52] LABS: TROPONIN I 0.212 ng/mL
--- NOTE | 2017-10-19 01:10 | ER Document Report ---
ED General - General Mode of Arrival: Ambulatory Information source: Patient TRAVEL OUTSIDE OF THE [place] IN LAST 30 DAYS: No <MARIA A CHESTER - Last Filed: 10/19/17 01:25> <ANDREA KURTZ - Last Filed: 10/19/17 06:50> - General Chief Complaint: Weak, shaking, pain Stated Complaint: WEAKNESS Time Seen by Provider: 10/19/17 01:00 Notes: Patient is a 62 year old male with MWF dialysis, CHF, CAD, diabetes type 2 presents to the emergency department complaining of shaking in bilateral upper and lower extremities as well as weakness. Patient was seen here on 10/17 and for similar symptoms and discharged home. Patient states the symptoms have progressively worsened and states he can not sit still. He states he can not operate due to these symptoms, further stating he think these symptoms are due to anxiety. Patient reports seeing his PCP, Dr. Baez, on 10/18/2017 and was referred to a doctor in [place]. 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 Past Medical History - General Information source: Patient - Social History Smoking Status: Never Smoker Cigarette use (# per day): No Chew tobacco use (# tins/day): No Smoking Education Provided: No Frequency of alcohol use: None Family History: Reviewed & Not Pertinent - Past Medical History Cardiac Medical History: Reports: Hx Congestive Heart Failure, Hx Coronary Artery Disease - ANGINA 03/01/17 Endocrine Medical History: Reports: Hx Diabetes Mellitus Type 2 Renal/ Medical History: Reports: Hx End Stage Renal Disease - Dialysis dependent, Hx Hemodialysis, Hx Renal Insufficiency GI Medical History: Reports: Hx Gastroesophageal Reflux Disease Psychiatric Medical History: Reports: Hx Depression Past Surgical History: Reports: Hx Orthopedic Surgery - Right big toe amputation in 2014, left third and fourth toe amputation, Hx Vascular Surgery, Other - Neck surgery in 2012 - Immunizations Hx Diphtheria, Pertussis, Tetanus Vaccination: Yes Hx Pneumococcal Vaccination: 02/05/15 <MARIA A CHESTER - Last Filed: 10/19/17 01:25> Review of Systems - Review of Systems Constitutional: See HPI, Weakness EENT: No symptoms reported Cardiovascular: No symptoms reported Respiratory: No symptoms reported Gastrointestinal: No symptoms reported Genitourinary: No symptoms reported Male Genitourinary: No symptoms reported Musculoskeletal: See HPI Skin: No symptoms reported Hematologic/Lymphatic: No symptoms reported Neurological/Psychological: See HPI, Anxiety -: Yes All other systems reviewed and negative <MARIA A CHESTER Last Filed: 10/19/17 01:25> Physical Exam - General General appearance: Appears well, Alert In distress: None - HEENT Head: Normocephalic, Atraumatic Eyes: Normal Conjunctiva: Normal Extraocular movements intact: Yes Pupils: PERRL Neck: Normal - Respiratory Respiratory status: No respiratory distress Chest status: Nontender Breath sounds: Normal Chest palpation: Normal - Cardiovascular Rhythm: Regular Heart sounds: Normal auscultation Murmur: No Friction rub: No Gallop: None auscultated - Abdominal Inspection: Normal Distension: No distension Bowel sounds: Normal Tenderness: Nontender Organomegaly: No organomegaly - Back Back: Normal - Extremities General upper extremity: Normal ROM, Other - Patient will periodically jerk and shake BUE during exam, will hit left against bed repeatedly. General lower extremity: Normal ROM - Neurological Neuro grossly intact: Yes Cognition: Normal Orientation: AAOx4 Doug Coma Scale Eye Opening: Spontaneous Doug Coma Scale Verbal: Oriented [place] Coma Scale Motor: Obeys Commands Doug Coma Scale Total: 15 Speech: Normal - Psychological Associated symptoms: Normal affect, Normal mood - Skin Skin Temperature: Warm Skin Moisture: Dry Skin Color: Normal <MARIA A CHESTER Filed: 10/19/17 01:25> - Vital signs Vitals: Temp Pulse Resp BP Pulse Ox 97.7 F 75 18 178/84 H 96 10/18/17 22:15 10/18/17 22:15 10/18/17 22:15 10/18/17 22:15 10/18/17 22:15 Course - Laboratory Result Diagrams: 10/18/17 22:45 10/18/17 22:45 <MARIA A CHESTER Last Filed: 10/19/17 01:25> - Laboratory Result Diagrams: 10/18/17 22:45 10/18/17 22:45 - Diagnostic Test Radiology reviewed: Reports reviewed - CT scan of the head is unremarkable. - EKG Interpretation by Fl EKG shows normal: Sinus rhythm, [place], Intervals, QRS Complexes, ST-T Waves Rate: Normal - 78 Rhythm: Other - Occasional supraventricular bigeminy [place]/QRS: RBBB Heart block present: 1st Degree When compared to previous EKG there are: No significant change - Transfer of Care Care transferred to following provider: Dr. Nascimento <ANDREA KURTZ - Last Filed: 10/19/17 06:50> - Re-evaluation Re-evalutation: 10/19/17 02:34 At this time the patient states she does not feel any better and wants a medicine that works for his problem. He is somewhat drowsy and seems to have difficulty keeping his eyes open. While talking to him he will repeatedly take his fist and banging it against the railing, or lift his foot up and bouncing off of the other foot. He does admit that he believes this is anxiety, and tries to state it is being caused by his spouse. 10/19/17 06:45 The patient's initial troponin was elevated but within what could be considered a normal range for this patient. A repeat about 4 hours later showed a doubling. 3 hours later it showed another doubling. His EKG does not show any new changes, he does not have chest pain. He is supposed to go to dialysis today. I am not comfortable discharging him with troponin that is doubling every 3-4 hours. At this time we are waiting on a phone call back from [facility] to get the patient on a transfer schedule. They are presently on a 24 hour plus bed delay. Anitha is on a bed delay of twice that length of time. 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 If no beds are available, then suggest calling Dr. Elizondo to see if he can be dialyzed at [facility], then calling Dr. Baez his PCP to admit for monitoring, and psychiatric evaluation while here. (ANDREA KURTZ) Discharge <MARIA A CHESTER - Last Filed: 10/19/17 01:25> <ANDREA KURTZ - Last Filed: 10/19/17 06:50> - Discharge Clinical Impression: Anxiety, Shaking, CKD (chronic kidney disease) stage V requiring chronic dialysis, Elevated troponin Referrals: FEI BAEZ MD [Primary Care Provider] - Follow up as needed Scribe Attestation: 10/19/17 01:52 I personally performed the services described in the documentation, reviewed and edited the documentation which was dictated to the scribe in my presence, and it accurately records my words and actions. (ANDREA KURTZ) Scribe Documentation - Scribe Written by Eliee:: Rebeca Zendejas, 10/19/2017 01:18 acting as scribe for :: Loida <MARIA A CHESTER - Last Filed: 10/19/17 01:25>
[2017-10-19] MEDS ORDERED: LORAZEPAM 1 MG TABLET PO ONE (01:11)
--- NOTE | 2017-10-19 03:08 | RADIOLOGY REPORT (SQ) ---
EXAM DESCRIPTION: CT of the head without contrast CLINICAL HISTORY: Altered mental status COMPARISON: 10/16/2017 TECHNIQUE: Axial CT of the head obtained from the skull apex to the skull base without contrast. FINDINGS: No acute intracranial hemorrhage identified. No mass, mass effect, shift of the midline, abnormal extra-axial fluid collection or CT evidence of acute ischemic change identified. The ventricular system and sulcal spaces are mildly enlarged compatible with mild cerebral atrophy. Scattered areas of hypodensity throughout the supratentorial white matter are nonspecific and may be related to chronic small vessel ischemic change. The visualized paranasal sinuses and the mastoids are clear. No skull fracture identified. Visualized orbits and globes are unremarkable. Atherosclerotic calcification of the intracranial internal carotid arteries. DLP: 1194.43 mGy-cm IMPRESSION: 1. No acute intracranial abnormality by CT criteria. This exam was performed according to our departmental dose-optimization program, which includes automated exposure control, adjustment of the mA and/or kV according to patient size and/or use of iterative reconstruction technique.
[2017-10-19] MEDS ORDERED: DIPHENHYDRAMINE HCL 25 MG CAPSULE PO ONE (04:19)
--- NOTE | 2017-10-19 06:43 | ER Document Report ---
Doctor's Note Notes: 10/19/17 07:04 Third troponin elevated. Waiting on callback by [facility]. Dr. Mariscal has seen this patient. At this time patient has had troponin that has tripled since he has been in the ER. Still having these weird neurological symptoms. Head CT unremarkable. Electrolytes unremarkable on initial blood draw. Patient dialyzes Tuesday. Spoke with Dr. Carmona/Keaton. Patient has been accepted but they are on divert at this time at [facility]. Potentially will be able to call other facility. Will consult with nephrology as well for potential dialysis while he is awaiting transport. Patient may just need to be admitted at this facility. Will consult with patient's primary care doctor as well to see what he recommends. 10/19/17 07:15 Spoke with patient's primary care doctor, Dr. Baez. Recommends calling another facility if [facility] is on the long wait. Will call [place]/ cardiac connections to attempt transfer. Ordering aspirin at this time.Awaiting call back 10/19/17 09:00 We will consult with Dr. Merino with nephrology to see if he would be able to dialyze patient if needed while in the emergency department. 10/19/17 09:[address] Elizondo with nephrology. She will evaluate patient in the emergency department and possibly dialyze him. Still waiting transfer. 10/19/17 10:09 10/19/17 13:31 Patient with continued elevation of his cardiac troponin. There is no doubt in my mind that this is a real cardiac issue at this time. More than likely patient's neurological symptoms are stemming from his poor cardiac function. Troponin is now 2.7. Starting heparin drip. Aspirin has been given. Starting on Nitropaste at this time. Reconsulting with the transfer team to see if we can get this patient out of here sooner rather than later. 10/19/17 13:49 The patient has been accepted. Anticipate transport here shortly. Discharge - Discharge Clinical Impression: Anxiety, Shaking, CKD (chronic kidney disease) stage V requiring chronic dialysis, Elevated troponin, Acute non-ST segment elevation myocardial infarction Condition: Good Disposition: [facility] Referrals: FEI BAEZ MD [Primary Care Provider] - Follow up as needed Scribe Attestation: 10/19/17 01:52 I personally performed the services described in the documentation, reviewed and edited the documentation which was dictated to the scribe in my presence, and it accurately records my words and actions. Course - Vital Signs Vital signs: Temp Pulse Resp BP Pulse Ox 98.3 F 75 15 178/77 H 97 10/19/17 08:48 10/18/17 22:15 10/19/17 13:01 10/19/17 13:01 10/19/17 13:01 - Laboratory Result Diagrams: 10/18/17 22:45 10/18/17 22:45 Laboratory results interpreted by me: 10/18/17 10/18/17 10/18/17 22:45 22:45 22:45 WBC 3.6 L RBC 3.87 L Hgb 12.3 L MCV 98 H RDW 24.7 H Monocytes % 17.0 H Eosinophils % 9.0 H Chloride 97 L BUN 38 H Creatinine 9.92 H Est GFR ( Amer) 6 L Est GFR (Non-Af Amer) 5 L Calcium 10.8 H Direct Bilirubin 0.7 H Creatine Kinase 281 H CK-MB (CK-2) 5.40 H NT-Pro-B Natriuret Pep 10/19/17 05:30 WBC RBC Hgb MCV RDW Monocytes % Eosinophils % Chloride BUN Creatinine Est GFR ( Amer) Est GFR (Non-Af Amer) Calcium Direct Bilirubin Creatine Kinase CK-MB (CK-2) NT-Pro-B Natriuret Pep 758311 H - EKG Interpretation by Me EKG shows normal: Sinus rhythm, [place], QRS Complexes, ST-T Waves [place]/QRS: RBBB When compared to previous EKG there are: No significant change Critical Care Note - Critical Care Note Total time excluding time spent on procedures (mins): 60 Comments: Non-ST elevation myocardial infarction, consultation with specialists, coordination of transfer of care.
[2017-10-19] MEDS ORDERED: ASPIRIN 81 MG TABLET, CHEWABLE PO ONE (07:11)
--- NOTE | 2017-10-19 08:53 | EKG REPORT ---
SEVERITY:- ABNORMAL ECG - SINUS RHYTHM ATRIAL PREMATURE COMPLEX FIRST DEGREE AV BLOCK RIGHT BUNDLE BRANCH BLOCK BORDERLINE ST DEPRESSION, LATERAL LEADS : Confirmed by: Rachid Eugene 19-Oct-2017 08:53:01
--- NOTE | 2017-10-19 08:54 | EKG REPORT ---
SEVERITY:- ABNORMAL ECG - SINUS RHYTHM SUPRAVENTRICULAR BIGEMINY FIRST DEGREE AV BLOCK RIGHT BUNDLE BRANCH BLOCK : Confirmed by: Rachid Eugene 19-Oct-2017 08:53:28
--- NOTE | 2017-10-19 10:25 | RADIOLOGY REPORT (SQ) ---
EXAM DESCRIPTION: CHEST SINGLE VIEW COMPLETED DATE/TIME: 10/19/2017 10:08 am REASON FOR STUDY: sob COMPARISON: CT chest 04/12/2017 Chest films 08/11/2017, 10/16/2017 EXAM PARAMETERS: NUMBER OF VIEWS: One view. TECHNIQUE: Single frontal radiographic view of the chest acquired. RADIATION DOSE: NA LIMITATIONS: None. FINDINGS: LUNGS AND PLEURA: There is pulmonary vascular congestion without alveolar or gross interst itial edema. No pleural effusions. No pneumothorax. MEDIASTINUM AND HILAR STRUCTURES: No masses. Contour normal. HEART AND VASCULAR STRUCTURES: Massive cardiomegaly, stable BONES: Lower cervical micro plates and screws HARDWARE: None in the chest. OTHER: No other significant finding. IMPRESSION: Stable massive cardiomegaly. Pulmonary vascular prominence without alveolar or intersti tial edema TECHNICAL DOCUMENTATION: JOB ID: [id number] [employer]- All Rights Reserved Reading location - IP/workstation name: [email or web address]
[2017-10-19] MEDS ORDERED: MORPHINE SULFATE 10 MG/ML INJ IV ONE (10:47)
[2017-10-19] MEDS ORDERED: HEPARIN SOD (PORCINE) 1,000 UNIT/ML 10 ML VIAL IV ONE (13:29)
[2017-10-19] MEDS ORDERED: HEPARIN SODIUM,PORCINE/D5W 25,000 UNIT/250 ML RTUINJ IV PRN (13:29)
[2017-10-19] MEDS ORDERED: NITROGLYCERIN 2% OINTMENT 1 GM PACKET TP ONE (13:30)
[2017-10-19] MEDS ORDERED: HEPARIN SODIUM,PORCINE/D5W 25,000 UNIT/250 ML RTUINJ IV ONE (14:18)
[2017-10-19 15:28] VITALS: BP 163/110
[2017-10-19] MEDS ORDERED: HEPARIN SOD (PORCINE) 1,000 UNIT/ML 10 ML VIAL IV PRN (16:29)
--- NOTE | 2017-10-19 22:55 | EKG REPORT ---
SEVERITY:- ABNORMAL ECG - SINUS RHYTHM FIRST DEGREE AV BLOCK RIGHT BUNDLE BRANCH BLOCK : Confirmed by: Rachid Eugene 19-Oct-2017 19:53:35
== END 2017-10-19 15:28 | disposition short-term general hospital (02) ==
LOC: ER 21:47
DX: I21.4 Non-ST elevation (NSTEMI) myocardial infarction (principal); F41.9 Anxiety disorder, unspecified; N18.4 Chronic kidney disease, stage 4 (severe); Z99.2 Dependence on renal dialysis; M25.512 Pain in left shoulder; I50.9 Heart failure, unspecified; I25.10 Atherosclerotic heart disease of native coronary artery without angina pectoris
CPT/HCPCS: 93005 ×2; 96376; 99291; 96375; 96365; 36415; 82553; 82962; 82550; 85025; 80053; 84484; 83880; 71045; 70450; 93010 ×2; J1644 ×2; J2270

== ENCOUNTER 2017-12-04 02:39 | Inpatient (IN) | payer OTHER, MEDICARE ==
[2017-12-04] MEDS ORDERED: ASPIRIN 81 MG TABLET, CHEWABLE PO ONE (03:17)
[2017-12-04] MEDS ORDERED: OXYCODONE HCL IR 5 MG TABLET PO ONE (03:19)
--- NOTE | 2017-12-04 03:53 | RADIOLOGY REPORT (SQ) ---
EXAM DESCRIPTION: XR CHEST 1 VIEW COMPLETED DATE/TME: 12/04/2017 03:17 CLINICAL HISTORY: chest pain COMPARISON: 10/19/2017 FINDINGS: Single frontal view of the chest. Cardiomegaly. Prior median sternotomy. Small bilateral pleural effusions with likely underlying atelectasis or consolidation. No pneumothorax. No acute osseous abnormalities. Leads overlie the chest Upper abdominal soft tissues are unremarkable. IMPRESSION: 1. Cardiomegaly with small bilateral pleural effusions.
--- NOTE | 2017-12-04 04:59 | ER Document Report ---
ED Cardiac - General Chief Complaint: Chest Pain Stated Complaint: CHEST PAIN Time Seen by Provider: 12/04/17 03:27 Notes: The patient is a 62-year-old male, past medical history CAD with CABG 6 weeks ago in [facility], presents with several days of anterior chest wall pain that is not associated with exertion. Pain is not his surgical site and is located left upper chest wall and right lower anterior chest wall. He is taking oxycodone for pain prescribed by his cardiac surgeon at [place]. Patient denies nausea, vomiting, shortness of breath, back pain, numbness, tingling, abdominal pain or syncope. TRAVEL OUTSIDE OF THE [place] 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 Past Medical History - General Information source: Patient - Social History Smoking Status: Unknown if Ever Smoked Family History: Reviewed & Not Pertinent - Past Medical History Cardiac Medical History: Reports: Hx Congestive Heart Failure, Hx Coronary Artery Disease - ANGINA 03/01/17 Denies: Hx Heart Attack, Hx Hypertension - SOMETIMES,NO MEDS Pulmonary Medical History: Denies: Hx Asthma, Hx Bronchitis, Hx COPD, Hx Pneumonia Neurological Medical History: Denies: Hx Cerebrovascular Accident, Hx Seizures Endocrine Medical History: Reports: Hx Diabetes Mellitus Type 2 Renal/ Medical History: Reports: Hx End Stage Renal Disease - Dialysis dependent, Hx Hemodialysis, Hx Renal Insufficiency. Denies: Hx Peritoneal Dialysis GI Medical History: Reports: Hx Gastroesophageal Reflux Disease. Denies: Hx Hepatitis, Hx Hiatal Hernia, Hx Ulcer Musculoskeltal Medical History: Denies Hx Arthritis Psychiatric Medical History: Reports: Hx Depression Infectious Medical History: Denies: Hx Hepatitis Past Surgical History: Reports: Hx Orthopedic Surgery - Right big toe amputation in 2014, left third and fourth toe amputation, Hx Vascular Surgery, Other - Neck surgery in 2012. Denies: Hx Open Heart Surgery, Hx Pacemaker - Immunizations Hx Diphtheria, Pertussis, Tetanus Vaccination: Yes Hx Pneumococcal Vaccination: 02/05/15 Review of Systems - Review of Systems Notes: REVIEW OF SYSTEMS: CONSTITUTIONAL: -fevers, -chills EENT: -eye pain, -difficulty swallowing, -nasal congestion CARDIOVASCULAR: +chest pain, -syncope. RESPIRATORY: -cough, -SOB GASTROINTESTINAL: -abdominal pain, -nausea, -vomiting, -diarrhea GENITOURINARY: -dysuria, -hematuria MUSCULOSKELETAL: -back pain, -neck pain SKIN: -rash or skin lesions. HEMATOLOGIC: -easy bruising or bleeding. LYMPHATIC: -swollen, enlarged glands. NEUROLOGICAL: -altered mental status or loss of consciousness, -headache, - neurologic symptoms PSYCHIATRIC: -anxiety, -depression. ALL OTHER SYSTEMS REVIEWED AND NEGATIVE. Physical Exam - Vital signs Vitals: Temp Pulse Resp BP 97.5 F 88 20 118/57 L 12/04/17 02:59 12/04/17 02:59 12/04/17 02:59 12/04/17 02:59 - Notes Notes: PHYSICAL EXAMINATION: GENERAL: Well-appearing, well-nourished and in no acute distress. HEAD: Atraumatic, normocephalic. EYES: Pupils equal round and reactive to light, extraocular movements intact, sclera anicteric, conjunctiva are normal. ENT: nares patent, oropharynx clear without exudates. Moist mucous membranes. NECK: Normal range of motion, supple without lymphadenopathy LUNGS: Breath sounds clear to auscultation bilaterally and equal. No wheezes rales or rhonchi. HEART: Regular rate and rhythm. ABDOMEN: Soft, nontender, normoactive bowel sounds. No guarding, no rebound. No masses appreciated. EXTREMITIES: Normal range of motion, no pitting or edema. No cyanosis. NEUROLOGICAL: Cranial nerves grossly intact. Normal speech, normal gait. Normal sensory and motor exams. PSYCH: Normal mood, normal affect. SKIN: Well-healing sternal surgical scar. Course - Re-evaluation Re-evalutation: Pt chest pain free. His EKG does not show any acute ischemic changes and his troponin is lower than prior values. EKG does not show pneumonia, but does have small pleural effusion. Patient's primary care physician is Dr. Zuleta. 12/04/17 05:[address] Gray and he has accepted patient to telemetry - Vital Signs Vital signs: Temp Pulse Resp BP Pulse Ox 97.5 F 88 20 118/57 L 12/04/17 02:59 12/04/17 02:59 12/04/17 02:59 12/04/17 02:59 - Laboratory Result Diagrams: 12/04/17 04:41 12/04/17 04:41 Laboratory results interpreted by me: 12/04/17 12/04/17 12/04/17 04:41 04:41 04:41 PT 18.1 H BUN 29 H Creatinine 7.63 H Est GFR ( Amer) 9 L Est GFR (Non-Af Amer) 7 L Direct Bilirubin 0.8 H ALT 14 L Creatine Kinase 43 L NT-Pro-B Natriuret Pep 41755 H Albumin 3.4 L - Diagnostic Test Radiology reviewed: Image reviewed, Reports reviewed Radiology results interpreted by me: CXR: Cardiomegaly with small B/L pleural effusions - EKG Interpretation by Me EKG shows normal: Sinus rhythm Rate: Normal [place]/QRS: RBBB When compared to previous EKG there are: No significant change Additional EKG results interpreted by me: No STEMI. Discharge - Discharge Clinical Impression: Chest pain Qualifiers: Chest pain type: unspecified Qualified Code(s): R07.9 - Chest pain, unspecified Condition: Stable Disposition: ADMITTED OBSERVATION Admitting Provider: [facility] Unit Admitted: Telemetry Referrals: FEI ZULETA MD [Primary Care Provider] - Follow up as needed
[2017-12-04 05:00] LABS: INTERNATIONAL RATION (INR) 1.42; PROTHROMBIN TIME 18.1 SEC (11.4-15.4)
[2017-12-04 05:15] LABS: ALANINE AMINOTRANSFERASE 14 U/L (21-72); ALBUMIN 3.4 g/dL (3.5-5.0); ALKALINE PHOSPHATASE 87 U/L (38-126); ANION GAP 11 (5-19); ASPARTATE AMINO TRANSFERASE 34 U/L (17-59); BILIRUBIN,DIRECT 0.8 mg/dL (0.0-0.4); BILIRUBIN,TOTAL 0.8 mg/dL (0.2-1.3); BLOOD UREA NITROGEN 29 mg/dL (7-20); CALCIUM 8.4 mg/dL (8.4-10.2); CARBON DIOXIDE 30 mmol/L (22-30); CHLORIDE 103 mmol/L (98-107); CREATINE KINASE 43 U/L (55-170); GLUCOSE 97 mg/dL (75-110); SODIUM 143.9 mmol/L (137-145); TOTAL PROTEIN 7.5 g/dL (6.3-8.2)
[2017-12-04 05:27] LABS: CREATINE KINASE MB 1.97 ng/mL (<4.55)
[2017-12-04 05:32] LABS: TROPONIN I 0.091 ng/mL
[2017-12-04 05:42] LABS: HEMATOCRIT 32.3 % (37.9-51.0); HEMOGLOBIN 10.4 g/dL (13.5-17.0); MEAN CORPUSCULAR HEMOGLOBIN 31.5 pg (27.0-33.4); MEAN CORPUSCULAR VOLUME 98 fl (80-97); PLATELET COUNT 309 10^3/uL (150-450); RED BLOOD COUNT 3.29 10^6/uL (4.35-5.55); RED CELL DISTRIBUTION WIDTH 25.8 % (11.5-14.0); WHITE BLOOD COUNT 12.8 10^3/uL (4.0-10.5)
[2017-12-04 05:46] LABS: ABSOLUTE LYMPHOCYTES# (MANUAL) 0.8 10^3/uL (0.5-4.7); ABSOLUTE MONOCYTES # (MANUAL) 1.2 10^3/uL (0.1-1.4); ABSOLUTE NEUTROPHILS# (MANUAL) 9.2 10^3/uL (1.7-8.2); BAND NEUTROPHILS % (MANUAL) 1 % (3-5); BASOPHILS % (MANUAL) 2 % (0-2); EOSINOPHILS % (MANUAL) 11 % (0-6); LYMPHOCYTES % (MANUAL) 6 % (13-45); MONOCYTES % (MANUAL) 9 % (3-13); NUCLEATED RED BLOOD CELLS 3 /100 WBC (0); SEGMENTED NEUTROPHILS % (MAN) 71 % (42-78); TOTAL CELLS COUNTED 100
[2017-12-04 05:48] LABS: POLYCHROMASIA SLIGHT
[2017-12-04 05:49] LABS: ANISOCYTOSIS 4+; HYPOCHROMASIA 1+; OVALOCYTES 1+; PLATELET COMMENT ADEQUATE; POIKILOCYTOSIS 1+
[2017-12-04 10:08] LABS: INTERNATIONAL RATION (INR) 1.54; PROTHROMBIN TIME 19.2 SEC (11.4-15.4)
[2017-12-04 10:09] LABS: PARTIAL THROMBOPLASTIN TIME 47.1 SEC (23.5-35.8)
[2017-12-04 10:59] LABS: CREATINE KINASE MB 1.65 ng/mL (<4.55)
[2017-12-04 11:03] LABS: TROPONIN I 0.077 ng/mL
[2017-12-04] MEDS: ASPIRIN 81 MG TABLET, ENT COATED PO SCH (11:44)
[2017-12-04] MEDS ORDERED: NITROGLYCERIN 0.4 MG/TAB 25 TAB/BOTTLE SL PRN (13:39)
[2017-12-04] MEDS ORDERED: FAMOTIDINE 20 MG TABLET PO PRN (13:39)
[2017-12-04] MEDS ORDERED: ACETAMINOPHEN 325 MG TABLET PO PRN (13:39)
[2017-12-04] MEDS ORDERED: OXYCODONE HCL IR 5 MG TABLET PO PRN (13:39)
[2017-12-04] MEDS ORDERED: CEPHALEXIN 250 MG PO SCH (13:45)
--- NOTE | 2017-12-04 13:52 | PDOC H&P ---
History of Present Illness Admission Date/PCP: 12/04/17 09:33 FEI ZULETA MD History of Present Illness: CHAPITO LESLIE is a 62 year old male he has a history of coronary artery disease, status post coronary artery bypass grafting about 6 weeks ago, end- stage renal disease on hemodialysis, type 2 diabetes mellitus, he came to the emergency room for evaluation of chest pain, he stated that the chest pain started since he haD surgery 6 weeks ago when I asked him what change in the chest pain that made him come to the emergency room last night, he could not give me any specific reason for his come to the emergency room last night, he uses oxycodone for pain control. In the emergency room he was evaluated, it was felt that patient needed to be admitted for further evaluation. I sent by the bedside on the floor the incision on the chest is very clean there is no infection, the incision on his left leg where the vein was harvested looks infected, He needs topical antibiotic for that. The chest pain is atypical it is sharp pain, it does not sound like a cardiac related chest pain it is more likely chest wall pain from the site of incision. Past Medical History Cardiac Medical History: Reports: Coronary Artery Disease Endocrine Medical History: Reports: Diabetes Mellitus Type 2 Renal/ Medical History: Reports: End Stage Renal Disease - Dialysis dependent GI Medical History: Reports: Gastroesophageal Reflux Disease Past Surgical History Past Surgical History: Reports: Cardiac Catheterization, Coronary Artery Bypass Graft, Orthopedic Surgery - Right big toe amputation in 2014, left third and fourth toe amputation, Vascular Surgery, Other - Cervical laminectomy in 2013 Social History Smoking Status: Former Smoker Cigarettes Packs Per Day: 1.5 Number of Years Smokin Frequency of Alcohol Use: None Hx Recreational Drug Use: No Drugs: None Hx Prescription Drug Abuse: No Family History Family History: Reviewed & Not Pertinent Parental Family History Reviewed: Yes Children Family History Reviewed: Yes Sibling(s) Family History Reviewed.: Yes Medication/Allergy Home Medications: Nitroglycerin [Nitrostat 0.4 mg (1/150 Gr) Tabs 25/Bottle] 0.4 mg SL Q5MP PRN Acetaminophen [Tylenol 325 mg Tablet] 650 mg PO Q4HP PRN 12/04/17 Atorvastatin Calcium [Lipitor 40 mg Tablet] 40 mg PO DAILY 12/04/17 Benzonatate [Tessalon Perles 100 mg Capsule] 100 mg PO Q8HP PRN 12/04/17 Calcium Acetate [Phoslo 667 mg Capsule] 667 mg PO MEALS 12/04/17 Cephalexin [Cephalexin 250 MG Tablet] 250 mg PO Q12 MDD FOR 10DAYS 12/04/17 Clopidogrel Bisulfate [Plavix 75 mg Tablet] 75 mg PO DAILY 12/04/17 Epoetin Deo [Procrit] 10,000 unit IJ MOWEFR@1000 12/04/17 Famotidine [Pepcid 20 mg Tablet] 20 mg PO BIDP PRN 12/04/17 Gabapentin [Neurontin 100 mg Capsule] 100 mg PO Q12 12/04/17 Metoprolol Succinate [Toprol Xl 25 mg Tab.sr] 12.5 mg PO DAILY 12/04/17 Mirtazapine [Remeron 15 mg Tablet] 30 mg PO QHS 12/04/17 Oxycodone HCl [Oxy-Ir 5 mg Tablet] 5 mg PO Q8HP PRN 12/04/17 Pantoprazole Sodium [Protonix] 40 mg PO DAILY 12/04/17 Ramelteon [Rozerem] 8 mg PO QHS 12/04/17 Warfarin Sodium [Coumadin 2 mg Tablet] 2 mg PO QHS 12/04/17 Allergies/Adverse Reactions: vancomycin [Vancomycin] Adverse Reaction (Unknown, Verified 10/19/17 07:42) molina syndrome Review of Systems Eyes: ABSENT: visual disturbances Ears: ABSENT: hearing changes Cardiovascular: PRESENT: chest pain Respiratory: ABSENT: cough, hemoptysis Gastrointestinal: ABSENT: abdominal pain, constipation, diarrhea, hematemesis, hematochezia, nausea, vomiting Genitourinary: ABSENT: dysuria, hematuria Musculoskeletal: ABSENT: joint swelling Integumentary: ABSENT: rash, wounds Neurological: ABSENT: abnormal gait, abnormal speech, confusion, dizziness, focal weakness, syncope Psychiatric: ABSENT: anxiety, depression, homidical ideation, suicidal ideation Endocrine: ABSENT: cold intolerance, heat intolerance, menstrual abnormalities, polydipsia, polyuria Hematologic/Lymphatic: ABSENT: easy bleeding, easy bruising, lymphadenopathy Physical Exam Vital Signs: Temp Pulse Resp BP Pulse Ox 99.1 F 70 16 104/55 L 100 12/04/17 13:24 12/04/17 13:24 12/04/17 13:24 12/04/17 13:24 12/04/17 13:24 Intake & Output 12/03/17 12/04/17 12/05/17 06:59 06:59 06:59 Weight 80.3 kg General appearance: PRESENT: no acute distress, well-developed, well-nourished Head exam: PRESENT: atraumatic, normocephalic Eye exam: PRESENT: conjunctiva pink, EOMI, PERRLA Ear exam: PRESENT: normal external ear exam Mouth exam: PRESENT: moist, tongue midline Neck exam: PRESENT: full ROM Respiratory exam: PRESENT: chest wall tenderness, clear to auscultation john Cardiovascular exam: PRESENT: RRR, +S1, +S2 Pulses: PRESENT: normal dorsalis pedis pul, +2 pedal pulses bilateral Vascular exam: PRESENT: normal capillary refill GI/Abdominal exam: PRESENT: normal bowel sounds, soft Rectal exam: PRESENT: deferred Neurological exam: PRESENT: alert, awake, oriented to person, oriented to place , oriented to time, oriented to situation, CN II-XII grossly intact. ABSENT: motor sensory deficit Psychiatric exam: PRESENT: appropriate affect, normal mood Skin exam: PRESENT: dry, intact, warm Results Laboratory Results: 12/04/17 09:52 CK-MB (CK-2) 1.65 Troponin I 0.077 Impressions: Chest X-Ray 12/04/17 03:17 IMPRESSION: 1. Cardiomegaly with small bilateral pleural effusions. Assessment & Plan - Diagnosis (1) Chest pain Qualifiers: Chest pain type: unspecified Qualified Code(s): R07.9 - Chest pain, unspecified Is this a current diagnosis for this admission?: Yes Plan: The chest pain is atypical (2) ESRD (end stage renal disease) Is this a current diagnosis for this admission?: Yes (3) Coronary artery disease Qualifiers: Coronary Disease-Associated Artery/Lesion type: unspecified vessel or lesion type Is this a current diagnosis for this admission?: Yes
[2017-12-04 14:35] LABS: INTERNATIONAL RATION (INR) 1.45; PROTHROMBIN TIME 18.4 SEC (11.4-15.4)
[2017-12-04 14:55] LABS: HEMATOCRIT 30.7 % (37.9-51.0); HEMOGLOBIN 9.9 g/dL (13.5-17.0); MEAN CORPUSCULAR HEMOGLOBIN 31.1 pg (27.0-33.4); MEAN CORPUSCULAR HGB CONC 32.2 g/dL (32.0-36.0); MEAN CORPUSCULAR VOLUME 97 fl (80-97); PLATELET COUNT 300 10^3/uL (150-450); RED BLOOD COUNT 3.17 10^6/uL (4.35-5.55); RED CELL DISTRIBUTION WIDTH 25.9 % (11.5-14.0); WHITE BLOOD COUNT 10.1 10^3/uL (4.0-10.5)
[2017-12-04 14:59] LABS: CREATINE KINASE MB 1.82 ng/mL (<4.55); TROPONIN I 0.078 ng/mL
[2017-12-04] MEDS ORDERED: LANSOPRAZOLE 30 MG TAB.RAP.DR PO ONE (15:00)
[2017-12-04] MEDS ORDERED: CLOPIDOGREL BISULFATE 75 MG TABLET PO ONE (15:00)
[2017-12-04] MEDS ORDERED: ATORVASTATIN CALCIUM 40 MG TABLET PO ONE (15:00)
[2017-12-04] MEDS ORDERED: METOPROLOL SUCCINATE 25 MG TAB.SR.24H PO ONE (15:00)
[2017-12-04] MEDS ORDERED: CEPHALEXIN 250 MG CAPSULE PO ONE (15:00)
[2017-12-04] MEDS ORDERED: GABAPENTIN 100 MG CAPSULE PO ONE (15:00)
[2017-12-04] MEDS: OXYCODONE HCL IR 5 MG TABLET PO PRN ×2 (15:14→21:49)
[2017-12-04] MEDS: CALCIUM ACETATE 667 MG CAPSULE PO SCH (16:46)
[2017-12-04] MEDS: CEPHALEXIN 250 MG CAPSULE PO SCH (18:02)
--- NOTE | 2017-12-04 19:11 | EKG REPORT ---
SEVERITY:- ABNORMAL ECG - SINUS RHYTHM ATRIAL PREMATURE COMPLEX FIRST DEGREE AV BLOCK RIGHT BUNDLE BRANCH BLOCK : Confirmed by: Shraddha Angel MD 04-Dec-2017 19:10:41
[2017-12-04] MEDS: GABAPENTIN 100 MG CAPSULE PO SCH (21:48)
[2017-12-04 21:49] LABS: ANION GAP 12 (5-19); BLOOD UREA NITROGEN 38 mg/dL (7-20); CALCIUM 8.1 mg/dL (8.4-10.2); CARBON DIOXIDE 30 mmol/L (22-30); CHLORIDE 98 mmol/L (98-107); GLUCOSE 108 mg/dL (75-110); POTASSIUM 5.3 mmol/L (3.6-5.0); SODIUM 140.3 mmol/L (137-145)
[2017-12-04] MEDS: WARFARIN SODIUM 2 MG TABLET PO SCH (21:49)
[2017-12-04] MEDS: MIRTAZAPINE 15 MG TABLET PO SCH (21:49)
[2017-12-04] MEDS ORDERED: WARFARIN SODIUM 1 MG TABLET PO SCH (22:00)
[2017-12-04] MEDS ORDERED: (PENDING PHARMACY ID) (Ramelteon [Rozerem] 8 MG) PO SCH (22:00)
[2017-12-04 22:01] LABS: CREATINE KINASE MB 1.98 ng/mL (<4.55); TROPONIN I 0.084 ng/mL
[2017-12-05] MEDS: LANSOPRAZOLE 30 MG TAB.RAP.DR PO SCH (05:54)
[2017-12-05 06:49] LABS: HEMATOCRIT 29.9 % (37.9-51.0); HEMOGLOBIN 9.6 g/dL (13.5-17.0); MEAN CORPUSCULAR HEMOGLOBIN 31.5 pg (27.0-33.4); MEAN CORPUSCULAR HGB CONC 32.2 g/dL (32.0-36.0); MEAN CORPUSCULAR VOLUME 98 fl (80-97); PLATELET COUNT 252 10^3/uL (150-450); RED BLOOD COUNT 3.05 10^6/uL (4.35-5.55); WHITE BLOOD COUNT 10.6 10^3/uL (4.0-10.5)
[2017-12-05 07:02] LABS: PROTHROMBIN TIME 17.9 SEC (11.4-15.4)
[2017-12-05 07:05] LABS: ANION GAP 12 (5-19); BLOOD UREA NITROGEN 44 mg/dL (7-20); CALCIUM 8.4 mg/dL (8.4-10.2); CARBON DIOXIDE 26 mmol/L (22-30); CHLORIDE 100 mmol/L (98-107); CHOLESTEROL 62.66 mg/dL (0-200); GLUCOSE 105 mg/dL (75-110); SODIUM 138.3 mmol/L (137-145); TRIGLYCERIDES 111 mg/dL (<150)
[2017-12-05 07:12] LABS: POTASSIUM 5.9 mmol/L (3.6-5.0)
[2017-12-05 07:16] LABS: ABSOLUTE MONOCYTES # (MANUAL) 1.5 10^3/uL (0.1-1.4); ABSOLUTE NEUTROPHILS# (MANUAL) 7.6 10^3/uL (1.7-8.2); BAND NEUTROPHILS % (MANUAL) 2 % (3-5); BASOPHILS % (MANUAL) 2 % (0-2); EOSINOPHILS % (MANUAL) 3 % (0-6); LYMPHOCYTES % (MANUAL) 9 % (13-45); METAMYELOCYTES % (MANUAL) 1 % (0); MONOCYTES % (MANUAL) 14 % (3-13); NUCLEATED RED BLOOD CELLS 5 /100 WBC (0); SEGMENTED NEUTROPHILS % (MAN) 69 % (42-78); TOTAL CELLS COUNTED 100
[2017-12-05 07:19] LABS: ANISOCYTOSIS 4+; HYPOCHROMASIA 1+; OVALOCYTES 1+; PLATELET COMMENT ADEQUATE; POLYCHROMASIA SLIGHT
[2017-12-05 07:20] LABS: DIRECT LDL < 30 mg/dL (<100)
--- NOTE | 2017-12-05 07:44 | PDOC PROGRESS REPORT ---
Subjective Progress Note for:: 12/05/17 Subjective:: This is a 62-year-old male recently admitted in the [facility] for the CABG and the patient's came to the emergency department with a complaint with chest pain and pretty much rule out acute coronary syndrome most likely a chest wall pain due to the incisions Patient usually see a pain management for the chronic pain and take the oxycodone 10 mg and if he needed to get 20 mg per the pain management and patients ask for that Patient otherwise denied any short of breath denied any other symptoms patient scheduled for the dialysis today Reason For Visit: CHEST PAIN, H/O CAD, S/P CABG Physical Exam Vital Signs: Temp Pulse Resp BP Pulse Ox 98.7 F 65 16 99/47 L 82 L 12/05/17 03:06 12/05/17 03:06 12/05/17 03:06 12/05/17 03:06 12/05/17 03:06 Intake & Output 12/04/17 12/05/17 12/06/17 06:59 06:59 06:59 Intake Total 490 Output Total 0 Balance 490 Weight 81.6 kg General appearance: PRESENT: no acute distress, well-developed, well-nourished Head exam: PRESENT: atraumatic, normocephalic Eye exam: PRESENT: conjunctiva pink, EOMI, PERRLA. ABSENT: scleral icterus Ear exam: PRESENT: normal external ear exam Mouth exam: PRESENT: moist, tongue midline Neck exam: PRESENT: full ROM. ABSENT: carotid bruit, JVD, lymphadenopathy, thyromegaly Respiratory exam: PRESENT: chest wall tenderness, clear to auscultation john Additional comments: Incision is dry and clean Cardiovascular exam: PRESENT: RRR. ABSENT: diastolic murmur, rubs, systolic murmur Pulses: PRESENT: normal dorsalis pedis pul, +2 pedal pulses bilateral Vascular exam: PRESENT: normal capillary refill GI/Abdominal exam: PRESENT: normal bowel sounds, soft. ABSENT: distended, guarding, mass, organolmegaly, rebound, tenderness Rectal exam: PRESENT: deferred Extremities exam: ABSENT: pedal edema Musculoskeletal exam: PRESENT: ambulatory Neurological exam: PRESENT: alert, awake, oriented to person, oriented to place , oriented to time, oriented to situation, CN II-XII grossly intact. ABSENT: motor sensory deficit Psychiatric exam: PRESENT: appropriate affect, normal mood. ABSENT: homicidal ideation, suicidal ideation Skin exam: PRESENT: dry, intact, warm. ABSENT: cyanosis, rash Results Laboratory Results: 12/05/17 06:22 12/04/17 12/04/17 12/05/17 14:12 21:23 06:22 WBC 10.1 RBC 3.17 L Hgb 9.9 L Hct 30.7 L MCV 97 MCH 31.1 MCHC 32.2 RDW 25.9 H Plt Count 300 Seg Neutrophils % Not Reportable Lymphocytes % Not Reportable Monocytes % Not Reportable Eosinophils % Not Reportable Basophils % Not Reportable Absolute Neutrophils Not Reportable Absolute Lymphocytes Not Reportable Absolute Monocytes Not Reportable Absolute Eosinophils Not Reportable Absolute Basophils Not Reportable Sodium 140.3 Potassium 5.3 H Chloride 98 Carbon Dioxide 30 Anion Gap 12 BUN 38 H Creatinine 8.70 H Est GFR ( Amer) 7 L Est GFR (Non-Af Amer) 6 L Glucose 108 Calcium 8.1 L Magnesium 2.2 Triglycerides Cholesterol LDL Cholesterol Direct VLDL Cholesterol HDL Cholesterol 12/05/17 06:22 WBC RBC Hgb Hct MCV MCH MCHC RDW Plt Count Seg Neutrophils % Lymphocytes % Monocytes % Eosinophils % Basophils % Absolute Neutrophils Absolute Lymphocytes Absolute Monocytes Absolute Eosinophils Absolute Basophils Sodium 138.3 Potassium 5.9 H Chloride 100 Carbon Dioxide 26 Anion Gap 12 BUN 44 H Creatinine 9.18 H Est GFR ( Amer) 7 L Est GFR (Non-Af Amer) 6 L Glucose 105 Calcium 8.4 Magnesium Triglycerides 111 Cholesterol 62.66 LDL Cholesterol Direct < 30 VLDL Cholesterol 22.0 HDL Cholesterol 18 L 12/04/17 12/04/17 12/04/17 09:52 15:45 21:23 CK-MB (CK-2) 1.65 1.82 1.98 Troponin I 0.077 0.078 0.084 Impressions: Chest X-Ray 12/04/17 03:17 IMPRESSION: 1. Cardiomegaly with small bilateral pleural effusions. Assessment & Plan - Diagnosis (1) Chest pain Qualifiers: Chest pain type: unspecified Qualified Code(s): R07.9 - Chest pain, unspecified Is this a current diagnosis for this admission?: Yes Plan: Most likely a chest wall pain will consult the cardiology due to the recent's bypass surgery (2) ESRD (end stage renal disease) Is this a current diagnosis for this admission?: Yes Plan: Currently scheduled for hemodialysis today (3) Anemia in chronic kidney disease (CKD) Qualifiers: Chronic kidney disease stage: on chronic dialysis Qualified Code(s): N18.6 - End stage renal disease Is this a current diagnosis for this admission?: Yes (4) Coronary artery disease Qualifiers: Coronary Disease-Associated Artery/Lesion type: unspecified vessel or lesion type Is this a current diagnosis for this admission?: Yes (5) Diabetes mellitus Qualifiers: Diabetes mellitus type: type 2 Diabetes mellitus correction insulin use: with correction use Diabetes mellitus complication status: with neurologic complications Diabetes mellitus complication detail: with polyneuropathy Qualified Code(s): E11.42 - Type 2 diabetes mellitus with diabetic polyneuropathy Is this a current diagnosis for this admission?: Yes (6) Gastroesophageal reflux disease Qualifiers: Esophagitis presence: without esophagitis Qualified Code(s): K21.9 - Gastro -esophageal reflux disease without esophagitis Is this a current diagnosis for this admission?: Yes (7) Hypertension Qualifiers: Hypertension type: essential hypertension Qualified Code(s): I10 - Essential (primary) hypertension Is this a current diagnosis for this admission?: Yes - Time Time Spent with patient: 15-24 minutes Medications reviewed and adjusted accordingly: Yes Anticipated discharge: Home Within: within 24 hours - Inpatient Certification Medical Necessity: Need Close Monitoring Due to Risk of Patient Decompensation Post Hospital Care: D/C Curing Oven Tender Documentation - Plan Summary Plan Summary: Discussed with the patient and the regarding the patient's current condition with consult the cardiology continues to monitor the patient
[2017-12-05] MEDS ORDERED: EPOETIN ALFA INJ 20000 UNIT/1 ML VIAL (RENAL) SUBCUT SCH (10:00)
[2017-12-05] MEDS: ASPIRIN 81 MG TABLET, ENT COATED PO SCH (10:27)
[2017-12-05] MEDS: ATORVASTATIN CALCIUM 40 MG TABLET PO SCH (10:28)
[2017-12-05] MEDS: GABAPENTIN 100 MG CAPSULE PO SCH ×2 (10:28→21:45)
[2017-12-05] MEDS: CEPHALEXIN 250 MG CAPSULE PO SCH ×2 (10:28→18:47)
[2017-12-05] MEDS: OXYCODONE HCL IR 5 MG TABLET PO PRN ×2 (10:29→15:04)
[2017-12-05] MEDS: CLOPIDOGREL BISULFATE 75 MG TABLET PO SCH (10:29)
[2017-12-05] MEDS: CALCIUM ACETATE 667 MG CAPSULE PO SCH ×3 (10:35→18:45)
[2017-12-05] MEDS: METOPROLOL SUCCINATE 25 MG TAB.SR.24H PO SCH (11:04)
--- NOTE | 2017-12-05 17:50 | CONSULTATION REPORT E ---
Consultation Report NAME: CHAPITO LESLIE : 1955 AGE: 62Y DATE: 12/05/2017 ROOM: 331 A TO: MAGUE LORA M.D. FROM: FEI ZULETA M.D. Requesting Physician REASON FOR CONSULTATION: Chest pain. HISTORY OF PRESENT ILLNESS: The patient is a 62-year-old of [place] origin, [place] male who has a history of coronary artery disease, history of non-ST elevation [place] in 10/2017 after which he had a 3 vessel bypass in the end of October in [facility]. The patient states since then he has been having chest pain which is sharp in nature and is reproducible by pressing on the incision. There are no clear cut anginal symptoms. There is no PND, orthopnea, or shortness of breath. There are no palpitations or arrhythmias. There is no syncope or near syncope. There are no palpitations. There is no leg edema. He denies any fever, chills, or rigors. PAST MEDICAL HISTORY: Positive for history of coronary artery disease. The patient was admitted here to the ER in 10/2017 wherein he had a non-ST elevation [place] and was transferred to [facility] where he had 3 vessel coronary artery bypass graft surgery. Records have been requested. Since then after surgery he has been having incisional chest pain but no clear cut anginal symptoms. He has a past history of congestive heart failure related to his end-stage renal disease. He also has history of diabetes mellitus type 2 insulin requiring. He has a history of hypertension and he has a history of end-stage renal disease on dialysis. There is no history of palpitations. There is no history of thyroid disease. There is no history of hemoptysis. There is no history of pulmonary emboli. PAST SURGICAL HISTORY: Positive for recent coronary artery bypass graft surgery. He has also had c-spine surgery in the past. He has also had an AV fistula placement and subsequently revision of the AV fistula. He also had a cholecystectomy for gallstone cholecystitis. ALLERGIES: The patient is allergic to VANCOMYCIN. SOCIAL HISTORY: He is a former smoker, he does not smoke anymore. FAMILY HISTORY: Positive for hypertension and diabetes mellitus. Negative for coronary artery disease. CODE STATUS: The patient is a full code. His is the surrogate healthcare decision maker. MEDICATIONS: 1. Tylenol 650 mg p.o. q.4 hours p.r.n. 2. Aspirin 81 mg p.o. daily. 3. Atorvastatin 40 mg p.o. daily. 4. Calcium acetate (PhosLo) 667 mg p.o. with each meal. 5. Cephalexin 250 mg p.o. b.i.d. 6. Plavix 75 mg p.o. daily. 7. Procrit 10,000 units subcutaneously Tuesday, Tuesday, Tuesday. 8. Pepcid 20 mg q.i.d. p.r.n. 9. Neurontin 100 mg p.o. q.12 hours. 10. Prevacid 30 mg p.o. q.6 a.m. 11. Toprol XL 12.5 mg p.o. daily. 12. Remeron 30 mg p.o. at bedtime. 13. Nitroglycerine 1 tablet sublingually q.5 minutes p.r.n. chest pain. 14. Oxycodone/hydrochloride 10 mg p.o. q.4 hours p.r.n. 15. Rozerem 8 mg p.o. at bedtime. 16. Coumadin 2 mg p.o. at bedtime. 17. He is on dialysis three days a week. REVIEW OF SYSTEMS: CONSTITUTIONAL: There is no history of fever, chills, or rigors. The patient complains of generalized fatigue and weakness. HEAD: Denies headaches or head injury. No dizziness. EYES: No history of amblyopia or diplopia. No history of amaurosis fugax. EARS: No history of hearing loss. No history of tinnitus. No history of vertigo. No history of recurrent ear infections. NOSE: No history of hay fever. No history of nosebleeds. No history of nasal polyps. MOUTH: No history of altered taste sensation. No ulcers in the mouth. No bleeding from the gums. THROAT: There is no odynophagia or dysphagia. There is no recurrent sore throat. SKIN: There is no pruritus. There is yellowish discoloration of the skin. There is no skin cancer. There is no psoriasis. NECK: History of c-spine surgery, but no neck pain, no painless or painful swelling of the neck. No goiter. No lymphadenopathy. LUNGS: No history of cough or sputum production. No wheezing. No history of pleuritic chest pain. No history of sleep apnea. No history of asthma or COPD. No history of pulmonary embolism. No history of recent wheezing. CARDIAC: History of hypertension present. Multiple risk factors for coronary artery disease and atypical chest pain. The last time the patient had chest pain the patient underwent cholecystectomy. History of chest pain in october wherein he sustained a non-ST elevation [place] and patient had coronary artery bypass graft surgery x3. No recent history of congestive heart failure. He has a history of hypertension. He denies any PND, orthopnea, leg edema, palpitations, or syncope. For unknown reason the patient is on Coumadin 2 mg p.o. at bedtime. We will need to review the records from [facility] to see as to why the patient is on Coumadin. No recent congestive heart failure. He has a past history of congestive heart failure. ENDOCRINE: History of diabetes mellitus type 2 insulin dependent. He has a history of diabetic neuropathy. There is no polydipsia or polyuria. No history heat or cold intolerance. No history of thyroid disease. RENAL: History of end-stage renal disease on hemodialysis. No hematuria, pyuria, or dysuria. GASTROINTESTINAL: No history of GERD. No history of GI bleed. No history of cirrhosis. No history of jaundice. No history of fatty intolerance. He has had a cholecystectomy in the past. NO altered bowel movement. CENTRAL NERVOUS SYSTEM: No history of TIA or CVA. No history of headaches, migraines, or seizures. No history of gait imbalance. PSYCHIATRIC: No history of anxiety or depression. No history of suicidal ideation. No history of homicidal ideation. VASCULAR: No history of calf or buttock claudication. No history of DVT. METABOLIC: No history of gout. He has a history of hyperlipidemia. He is on medication for that. HEMATOLOGICAL: No history of bleeding diathesis. No history of clotting disorders. MUSCULOSKELETAL: Denies arthritis or collagen vascular disease. PHYSICAL EXAMINATION: GENERAL: On examination the patient appears to be well-built and well-nourished. At present he is in no acute distress. He says only when he moves or touches his chest it is very sensitive and has chest pain. VITAL SIGNS: The patient is afebrile with a temperature of 98.5 degrees Fahrenheit, pulse is 66 beats per minute, blood pressure is 96/71, respirations are 15 per minute, O2 saturations are 98% on room air. HEENT: Head is atraumatic, normocephalic. Eyes: Pupils are equal, round and regular, reactive to light and accommodation. Extraocular movements are normal. There is no conjunctival pallor. There is no scleral icterus. Ears: Tympanic membranes are intact, external auditory canals are clear. Nose: There is no deviated nasal septum. There is no inflammation of the nasal mucous membrane. Mouth: Mucous membranes of the mouth are moist. Tongue is moist. There are no ulcers. There is no bleeding from the gums. Throat: There is no redness of the oropharynx. There are no exudates. SKIN: There is no skin rashes. There are no skin lesions. There is no petechiae or ecchymosis. NECK: Supple. There is no JVD. There is no lymphadenopathy. There is no goiter. Carotids are equal. There is no bruit. Trachea is central. LUNGS: Clear to auscultation and percussion. There is healing midline incision of his coronary artery bypass graft scar which is clean. There is no evidence of infection at the scar. There is tenderness when pressing on the chest wall incision, which reproduces the patient's symptoms of chest pain. HEART: S1, S2 is heard. There is no S3 gallop. There is no S4 gallop. There is a systolic murmur in the left sternal border and the apex. There is no rub. ABDOMEN: Soft, nontender. There is no hepatosplenomegaly. Bowel sounds are well heard. There are no tender areas or masses. There is no rebound, guarding, or rigidity. EXTREMITIES: Femorals are slightly diminished. Leg pulses are diminished. There are no femoral bruits. There is no pedal edema. There is scar of the vein graft harvest in the left leg, it is clean and healing. There is no DVT or cellulitis. There is no calf tenderness. CENTRAL NERVOUS SYSTEM: The patient is conscious, awake, alert and oriented x3 with no focal deficits. PSYCHIATRIC: The patient's judgment and insight are intact. His affect is normal. DIAGNOSTICS: His EKG shows sinus rhythm, *------* first degree AV block and right bundle branch block pattern. The patient's chest x-ray shows cardiomegaly with small bilateral pleural effusions. The patient's white count is 10,600; hemoglobin is 9.6; hematocrit is 29.9; and platelet count is 252,000. His ProTime is 17.9, INR is 1.40. The patient's sodium is 138.9, potassium is 5.9, chloride is 100, CO2 is 26. The patient's BUN is 44, creatinine is 9.18, GFR is reduced at 6 mL per hour which is end-stage renal disease. Glucose is 105. His calcium is 8.4. His triglycerides are normal at 111. His LDL cholesterol is less than 30. His HDL cholesterol is very low at 18. His troponin I has been 0.091, 0.077, 0.078, and 0.084. His CPK-MBs are negative. His liver function tests are normal, except for a low ALT of 40 and a slightly elevated direct bilirubin of 0.8. His NT-proBNP is 25,100. IMPRESSION: 1. Chest wall pain, noncardiac, no evidence of angina. This is secondary to recent surgery, the patient having incisional pain. 2. Recent coronary artery bypass graft surgery at the end of 10/2017. 3. Coronary artery disease, history of non-ST elevation [place]. No anginal symptoms. 4. Hypertension. 5. Diabetes mellitus, insulin requiring. 6. End-stage renal disease on hemodialysis. 7. Dyslipidemia but low HDL level. 8. ? reason for the patient being on warfarin. 9. Anemia. 10. Hyperkalemia. RECOMMENDATIONS: His medications have been reviewed. We will add iron to his regimen. For his end-stage renal disease continue hemodialysis. Medical decision making is of moderate complexity. I am going to sign off the case and have the patient follow up with me in the office since he is a patient of mine. Discussed with the attending physician on the case and other care giving providers. TIME SPENT: Note that the patient was seen at 8 a.m. and 55 minutes spent on this patient with more than 50% of the time spent on direct patient care. DICTATING PHYSICIAN: MAGUE LORA M.D. [id number] PHY#: [id number] ID: [id number] JOB#: [id number] ACCT: [id number] cc:MAGUE LORA M.D. >
[2017-12-05] MEDS: FERROUS SULFATE 325 MG TABLET PO SCH (18:46)
--- NOTE | 2017-12-05 20:28 | PDOC CONSULTATION ---
Consultation Consult Date: 12/05/17 Attending physician:: FEI ZULETA Consult reason:: I was asked to see the patient for supervision of dialysis. History of Present Illness Admission Date/PCP: 12/05/17 09:08 FEI ZULETA MD History of Present Illness: CHAPITO LESLIE is a 62 year old male known to me with history of end-stage renal disease on maintenance hemodialysis on Mondays, Wednesdays and Fridays, coronary artery disease status post recent CABG x3, hypertension and diabetes mellitus who was admitted yesterday because of chest pains. Patient underwent CABG x3 on October 26 at [facility]. He was subsequently transferred to acute cardiac rehab and was just recently discharged home last week on . His last dialysis was Tuesday only for 2 hours because he was dialyzed for 4 hours on . Over the weekend the patient said that he experience excruciating right sided chest pains so he presented himself in the emergency room. Pain is worse on coughing. Acute coronary event has been ruled out so far. Patient denies any shortness of breath, leg swelling, nausea nor vomiting. Cardiology evaluated the patient and assess the patient to have noncardiac chest pains probably just due to incisional pain due to most recent CABG. Patient also complains of being weak upon discharge home. He said he did not realize that he was weak until he got home last . He said he is unable to stand and walk around at home. He describes his legs and arms is giving out like Jell-O. He had an episode of a fall on . He was supposed to have some home health nurse and is questionable if he will need to continue his cardiac rehab as an outpatient. His appetite is still not back. He has lost about 12 kg with his dry weight adjusted from 90 kg to 7 7.7 kg. I saw the patient earlier during initiation of hemodialysis. Patient's hemodialysis went well and he tolerated it. There was not any complications during the treatment. Past Medical History Cardiac Medical History: Reports: CHF-Diastolic, Coronary Artery Disease, Hypertension-primary Neurological Medical History: Reports: Other - He has been having involuntary tremors of unknown origin Endocrine Medical History: Reports: Diabetes Mellitus Type 2 Complications of Diabetes: Reports: Nephropathy Renal/ Medical History: Reports: End Stage Renal Disease - Dialysis dependent , Hyperphosphatemia, Secondary Hyperparathyroidism GI Medical History: Reports: Gastroesophageal Reflux Disease Psychiatric Medical History: Reports: Depression, General Anxiety Disorder Infectious Medical History: Reports: Hepatitis C Hematology Medical History: Reports Anemia of Chronic Kidney Disease Past Surgical History Past Surgical History: Reports: Cardiac Catheterization, Coronary Artery Bypass Graft - X3 vessel on October 26, 2017, Dialysis Access Surgery AVF, Orthopedic Surgery - Right big toe amputation in 2014, left third and fourth toe amputation , Vascular Surgery, Other - Cervical laminectomy in 2013 Social History Information Source: Patient Smoking Status: Former Smoker Cigarettes Packs Per Day: 1.5 Number of Years Smokin Frequency of Alcohol Use: None Hx Recreational Drug Use: No Drugs: None Hx Prescription Drug Abuse: No Family History Family History: Reviewed & Not Pertinent Parental Family History Reviewed: Yes Children Family History Reviewed: Yes Sibling(s) Family History Reviewed.: Yes Medication/Allergy Home Medications: Nitroglycerin [Nitrostat 0.4 mg (1/150 Gr) Tabs 25/Bottle] 0.4 mg SL Q5MP PRN Acetaminophen [Tylenol 325 mg Tablet] 650 mg PO Q4HP PRN 12/04/17 Atorvastatin Calcium [Lipitor 40 mg Tablet] 40 mg PO DAILY 12/04/17 Benzonatate [Tessalon Perles 100 mg Capsule] 100 mg PO Q8HP PRN 12/04/17 Calcium Acetate [Phoslo 667 mg Capsule] 667 mg PO MEALS 12/04/17 Cephalexin [Cephalexin 250 MG Tablet] 250 mg PO Q12 MDD FOR 10DAYS 12/04/17 Clopidogrel Bisulfate [Plavix 75 mg Tablet] 75 mg PO DAILY 12/04/17 Epoetin Deo [Procrit] 10,000 unit IJ MOWEFR@1000 12/04/17 Famotidine [Pepcid 20 mg Tablet] 20 mg PO BIDP PRN 12/04/17 Gabapentin [Neurontin 100 mg Capsule] 100 mg PO Q12 12/04/17 Metoprolol Succinate [Toprol Xl 25 mg Tab.sr] 12.5 mg PO DAILY 12/04/17 Mirtazapine [Remeron 15 mg Tablet] 30 mg PO QHS 12/04/17 Oxycodone HCl [Oxy-Ir 5 mg Tablet] 5 mg PO Q8HP PRN 12/04/17 Pantoprazole Sodium [Protonix] 40 mg PO DAILY 12/04/17 Ramelteon [Rozerem] 8 mg PO QHS 12/04/17 Warfarin Sodium [Coumadin 2 mg Tablet] 2 mg PO QHS 12/04/17 Allergies/Adverse Reactions: vancomycin [Vancomycin] Adverse Reaction (Unknown, Verified 10/19/17 07:42) molina syndrome Review of Systems All systems: reviewed and no additional remarkable complaints except as stated Review of Systems: Constitutional: ABSENT: chills, fatigue, fever(s), headache(s), weight gain, weight loss; admits appetite loss Eyes: ABSENT: visual disturbances Ears: ABSENT: hearing changes Cardiovascular: ABSENT: Dyspnea on exertion, edema, orthropnea, palpitations; admits right-sided chest pain Respiratory: ABSENT: cough, dyspnea, hemoptysis Gastrointestinal: ABSENT: abdominal pain, constipation, diarrhea, hematemesis, hematochezia, nausea, vomiting Genitourinary: ABSENT: dysuria, hematuria Musculoskeletal: ABSENT: joint swelling Integumentary: ABSENT: rash, wounds Neurological: ABSENT: abnormal gait, abnormal speech, confusion, dizziness, focal weakness, numbness, syncope; admits occasional involuntary tremors Psychiatric: ABSENT: anxiety, depression Endocrine: ABSENT: cold intolerance, heat intolerance, polydipsia, polyuria Hematologic/Lymphatic: ABSENT: easy bleeding, easy bruising, lymphadenopathy Physical Exam Vital Signs: Temp Pulse Resp BP Pulse Ox 98.8 F 63 14 122/54 L 92 12/05/17 12:12 12/05/17 14:00 12/05/17 12:12 12/05/17 12:12 12/05/17 12:12 Intake & Output 12/04/17 12/05/17 12/06/17 06:59 06:59 06:59 Intake Total 100 Balance 100 Vitals during dialysis: Blood pressure 142/68, heart rate of 61, blood flow of 400 mL/min, dialysate flow of 600 mL/min. Exam: General appearance: No acute distress, cooperative, well-developed, well- nourished Head exam: PRESENT: atraumatic, normocephalic Eye exam: PRESENT: Conjunctiva pale, EOMI, PERRLA. ABSENT: conjunctival injection, scleral icterus Mouth exam: PRESENT: moist, neck supple, tongue midline Neck exam: PRESENT: full ROM. ABSENT: carotid bruit, JVD, lymphadenopathy, thyromegaly Respiratory exam: PRESENT: Diminished to auscultation bilaterally. Positive bibasilar crackles, chest wall showed midline scar from recent surgery ABSENT: Rhonchi, stridor, wheezes Cardiovascular exam: PRESENT: RRR, +S1, +S2. ABSENT: systolic murmur Pulses: PRESENT: normal radial pulses, normal dorsalis pedis pulses; left arm AV fistula with thrill and bruit GI/Abdominal exam: PRESENT: normal bowel sounds, soft. ABSENT: guarding, mass, tenderness Rectal exam: Deferred Extremities exam: PRESENT: full ROM. He has left arm swelling ABSENT: calf tenderness, pedal edema Musculoskeletal: PRESENT: full ROM. ABSENT: deformity Neurological exam: PRESENT: alert, Awake, Oriented to person, Oriented to place , Oriented to time, reflexes normal, CN II-XII grossly intact. ABSENT: motor sensory deficit Psychiatric exam: PRESENT: appropriate affect, normal mood. ABSENT: homicidal ideation, suicidal ideation Skin exam: PRESENT: intact, dry, warm. Patient still has some open wound on his left leg where the vein was obtained from for his bypass ABSENT: rash Results Laboratory Results: Laboratory 12/04/17 12/04/17 12/04/17 04:41 04:41 04:41 WBC 12.8 H RBC 3.29 L Hgb 10.4 L Hct 32.3 L MCV 98 H MCH 31.5 MCHC 32.0 RDW 25.8 H Plt Count 309 Total Counted 100 Seg Neutrophils % Not Reportable Seg Neuts % (Manual) 71 Band Neutrophils % 1 L Lymphocytes % Not Reportable Lymphocytes % (Manual) 6 L Monocytes % Not Reportable Monocytes % (Manual) 9 Eosinophils % Not Reportable Eosinophils % (Manual) 11 H Basophils % Not Reportable Basophils % (Manual) 2 Metamyelocytes % Absolute Neutrophils Not Reportable Abs Neuts (Manual) 9.2 H Absolute Lymphocytes Not Reportable Abs Lymphs (Manual) 0.8 Absolute Monocytes Not Reportable Abs Monocytes (Manual) 1.2 Absolute Eosinophils Not Reportable Absolute Eos (Manual) 1.4 H Absolute Basophils Not Reportable Abs Basophils (Manual) 0.3 H Nucleated RBCs 3 Platelet Comment ADEQUATE Polychromasia SLIGHT Hypochromasia 1+ Poikilocytosis 1+ Basophilic Stippling PRESENT Anisocytosis 4+ Ovalocytes 1+ PT 18.1 H INR 1.42 APTT Sodium 143.9 Potassium 5.0 Chloride 103 Carbon Dioxide 30 Anion Gap 11 BUN 29 H Creatinine 7.63 H Est GFR ( Amer) 9 L Est GFR (Non-Af Amer) 7 L Glucose 97 POC Glucose Calcium 8.4 Magnesium Total Bilirubin 0.8 Direct Bilirubin 0.8 H Neonat Total Bilirubin Not Reportable Neonat Direct Bilirubin Not Reportable Neonat Indirect Bili Not Reportable AST 34 ALT 14 L Alkaline Phosphatase 87 Creatine Kinase 43 L CK-MB (CK-2) Troponin I NT-Pro-B Natriuret Pep Total Protein 7.5 Albumin 3.4 L Triglycerides Cholesterol LDL Cholesterol Direct VLDL Cholesterol HDL Cholesterol 12/04/17 12/04/17 12/04/17 04:41 09:52 09:52 WBC RBC Hgb Hct MCV MCH MCHC RDW Plt Count Total Counted Seg Neutrophils % Seg Neuts % (Manual) Band Neutrophils % Lymphocytes % Lymphocytes % (Manual) Monocytes % Monocytes % (Manual) Eosinophils % Eosinophils % (Manual) Basophils % Basophils % (Manual) Metamyelocytes % Absolute Neutrophils Abs Neuts (Manual) Absolute Lymphocytes Abs Lymphs (Manual) Absolute Monocytes Abs Monocytes (Manual) Absolute Eosinophils Absolute Eos (Manual) Absolute Basophils Abs Basophils (Manual) Nucleated RBCs Platelet Comment Polychromasia Hypochromasia Poikilocytosis Basophilic Stippling Anisocytosis Ovalocytes PT 19.2 H INR 1.54 APTT 47.1 H Sodium Potassium Chloride Carbon Dioxide Anion Gap BUN Creatinine Est GFR ( Amer) Est GFR (Non-Af Amer) Glucose POC Glucose Calcium Magnesium Total Bilirubin Direct Bilirubin Neonat Total Bilirubin Neonat Direct Bilirubin Neonat Indirect Bili AST ALT Alkaline Phosphatase Creatine Kinase CK-MB (CK-2) 1.97 1.65 Troponin I 0.091 0.077 NT-Pro-B Natriuret Pep 81871 H Total Protein Albumin Triglycerides Cholesterol LDL Cholesterol Direct VLDL Cholesterol HDL Cholesterol 12/04/17 12/04/17 12/04/17 12:18 14:12 14:12 WBC 10.1 RBC 3.17 L Hgb 9.9 L Hct 30.7 L MCV 97 MCH 31.1 MCHC 32.2 RDW 25.9 H Plt Count 300 Total Counted Seg Neutrophils % Seg Neuts % (Manual) Band Neutrophils % Lymphocytes % Lymphocytes % (Manual) Monocytes % Monocytes % (Manual) Eosinophils % Eosinophils % (Manual) Basophils % Basophils % (Manual) Metamyelocytes % Absolute Neutrophils Abs Neuts (Manual) Absolute Lymphocytes Abs Lymphs (Manual) Absolute Monocytes Abs Monocytes (Manual) Absolute Eosinophils Absolute Eos (Manual) Absolute Basophils Abs Basophils (Manual) Nucleated RBCs Platelet Comment Polychromasia Hypochromasia Poikilocytosis Basophilic Stippling Anisocytosis Ovalocytes PT 18.4 H INR 1.45 APTT Sodium Potassium Chloride Carbon Dioxide Anion Gap BUN Creatinine Est GFR ( Amer) Est GFR (Non-Af Amer) Glucose POC Glucose 91 Calcium Magnesium Total Bilirubin Direct Bilirubin Neonat Total Bilirubin Neonat Direct Bilirubin Neonat Indirect Bili AST ALT Alkaline Phosphatase Creatine Kinase CK-MB (CK-2) Troponin I NT-Pro-B Natriuret Pep Total Protein Albumin Triglycerides Cholesterol LDL Cholesterol Direct VLDL Cholesterol HDL Cholesterol 12/04/17 12/04/17 12/04/17 15:45 16:28 21:23 WBC RBC Hgb Hct MCV MCH MCHC RDW Plt Count Total Counted Seg Neutrophils % Seg Neuts % (Manual) Band Neutrophils % Lymphocytes % Lymphocytes % (Manual) Monocytes % Monocytes % (Manual) Eosinophils % Eosinophils % (Manual) Basophils % Basophils % (Manual) Metamyelocytes % Absolute Neutrophils Abs Neuts (Manual) Absolute Lymphocytes Abs Lymphs (Manual) Absolute Monocytes Abs Monocytes (Manual) Absolute Eosinophils Absolute Eos (Manual) Absolute Basophils Abs Basophils (Manual) Nucleated RBCs Platelet Comment Polychromasia Hypochromasia Poikilocytosis Basophilic Stippling Anisocytosis Ovalocytes PT INR APTT Sodium Potassium Chloride Carbon Dioxide Anion Gap BUN Creatinine Est GFR ( Amer) Est GFR (Non-Af Amer) Glucose POC Glucose 102 Calcium Magnesium Total Bilirubin Direct Bilirubin Neonat Total Bilirubin Neonat Direct Bilirubin Neonat Indirect Bili AST ALT Alkaline Phosphatase Creatine Kinase CK-MB (CK-2) 1.82 1.98 Troponin I 0.078 0.084 NT-Pro-B Natriuret Pep Total Protein Albumin Triglycerides Cholesterol LDL Cholesterol Direct VLDL Cholesterol HDL Cholesterol 12/04/17 12/04/17 12/05/17 21:23 21:37 06:22 WBC 10.6 H RBC 3.05 L Hgb 9.6 L Hct 29.9 L MCV 98 H MCH 31.5 MCHC 32.2 RDW 26.0 H Plt Count 252 Total Counted 100 Seg Neutrophils % Not Reportable Seg Neuts % (Manual) 69 Band Neutrophils % 2 L Lymphocytes % Not Reportable Lymphocytes % (Manual) 9 L Monocytes % Not Reportable Monocytes % (Manual) 14 H Eosinophils % Not Reportable Eosinophils % (Manual) 3 Basophils % Not Reportable Basophils % (Manual) 2 Metamyelocytes % 1 H Absolute Neutrophils Not Reportable Abs Neuts (Manual) 7.6 Absolute Lymphocytes Not Reportable Abs Lymphs (Manual) 1.0 Absolute Monocytes Not Reportable Abs Monocytes (Manual) 1.5 H Absolute Eosinophils Not Reportable Absolute Eos (Manual) 0.3 Absolute Basophils Not Reportable Abs Basophils (Manual) 0.2 Nucleated RBCs 5 Platelet Comment ADEQUATE Polychromasia SLIGHT Hypochromasia 1+ Poikilocytosis Basophilic Stippling Anisocytosis 4+ Ovalocytes 1+ PT INR APTT Sodium 140.3 Potassium 5.3 H Chloride 98 Carbon Dioxide 30 Anion Gap 12 BUN 38 H Creatinine 8.70 H Est GFR ( Amer) 7 L Est GFR (Non-Af Amer) 6 L Glucose 108 POC Glucose 102 Calcium 8.1 L Magnesium 2.2 Total Bilirubin Direct Bilirubin Neonat Total Bilirubin Neonat Direct Bilirubin Neonat Indirect Bili AST ALT Alkaline Phosphatase Creatine Kinase CK-MB (CK-2) Troponin I NT-Pro-B Natriuret Pep Total Protein Albumin Triglycerides Cholesterol LDL Cholesterol Direct VLDL Cholesterol HDL Cholesterol 12/05/17 12/05/17 12/05/17 06:22 06:22 06:34 WBC RBC Hgb Hct MCV MCH MCHC RDW Plt Count Total Counted Seg Neutrophils % Seg Neuts % (Manual) Band Neutrophils % Lymphocytes % Lymphocytes % (Manual) Monocytes % Monocytes % (Manual) Eosinophils % Eosinophils % (Manual) Basophils % Basophils % (Manual) Metamyelocytes % Absolute Neutrophils Abs Neuts (Manual) Absolute Lymphocytes Abs Lymphs (Manual) Absolute Monocytes Abs Monocytes (Manual) Absolute Eosinophils Absolute Eos (Manual) Absolute Basophils Abs Basophils (Manual) Nucleated RBCs Platelet Comment Polychromasia Hypochromasia Poikilocytosis Basophilic Stippling Anisocytosis Ovalocytes PT 17.9 H INR 1.40 APTT Sodium 138.3 Potassium 5.9 H Chloride 100 Carbon Dioxide 26 Anion Gap 12 BUN 44 H Creatinine 9.18 H Est GFR ( Amer) 7 L Est GFR (Non-Af Amer) 6 L Glucose 105 POC Glucose 111 H Calcium 8.4 Magnesium Total Bilirubin Direct Bilirubin Neonat Total Bilirubin Neonat Direct Bilirubin Neonat Indirect Bili AST ALT Alkaline Phosphatase Creatine Kinase CK-MB (CK-2) Troponin I NT-Pro-B Natriuret Pep Total Protein Albumin Triglycerides 111 Cholesterol 62.66 LDL Cholesterol Direct < 30 VLDL Cholesterol 22.0 HDL Cholesterol 18 L 12/05/17 11:16 WBC RBC Hgb Hct MCV MCH MCHC RDW Plt Count Total Counted Seg Neutrophils % Seg Neuts % (Manual) Band Neutrophils % Lymphocytes % Lymphocytes % (Manual) Monocytes % Monocytes % (Manual) Eosinophils % Eosinophils % (Manual) Basophils % Basophils % (Manual) Metamyelocytes % Absolute Neutrophils Abs Neuts (Manual) Absolute Lymphocytes Abs Lymphs (Manual) Absolute Monocytes Abs Monocytes (Manual) Absolute Eosinophils Absolute Eos (Manual) Absolute Basophils Abs Basophils (Manual) Nucleated RBCs Platelet Comment Polychromasia Hypochromasia Poikilocytosis Basophilic Stippling Anisocytosis Ovalocytes PT INR APTT Sodium Potassium Chloride Carbon Dioxide Anion Gap BUN Creatinine Est GFR ( Amer) Est GFR (Non-Af Amer) Glucose POC Glucose 104 Calcium Magnesium Total Bilirubin Direct Bilirubin Neonat Total Bilirubin Neonat Direct Bilirubin Neonat Indirect Bili AST ALT Alkaline Phosphatase Creatine Kinase CK-MB (CK-2) Troponin I NT-Pro-B Natriuret Pep Total Protein Albumin Triglycerides Cholesterol LDL Cholesterol Direct VLDL Cholesterol HDL Cholesterol Impressions: Chest X-Ray 12/04/17 03:17 IMPRESSION: 1. Cardiomegaly with small bilateral pleural effusions. Assessment & Plan - Diagnosis (1) ESRD (end stage renal disease) Is this a current diagnosis for this admission?: Yes Plan: We did dialysis today for 3 hours, using the patient's AV fistula, with 2 potassium bath, blood flow rate of 400 mL per minute, dialysate flow rate of 6 mL per minute, ultrafiltration 2.5-3 L as tolerated, no heparin and Procrit was not given during dialysis intravenously. Patient tolerated dialysis well. Patient was monitored toward the whole treatment. (2) Chest wall pain following surgery Is this a current diagnosis for this admission?: Yes (3) Anemia in chronic kidney disease (CKD) Qualifiers: Chronic kidney disease stage: on chronic dialysis Qualified Code(s): N18.6 - End stage renal disease Is this a current diagnosis for this admission?: Yes Plan: We will give Procrit during dialysis as needed. (4) Leg wound, left Is this a current diagnosis for this admission?: Yes Plan: Continue Keflex. (5) Coronary artery disease Qualifiers: Coronary Disease-Associated Artery/Lesion type: unspecified vessel or lesion type Is this a current diagnosis for this admission?: Yes Plan: Status post CABG x3. I think the patient needs continued cardiac rehab. 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 Patient seems to be clinically stable and possibly could be discharge tomorrow. Patient's next dialysis will then be on Tuesday on his regular scheduled time at [facility]. If for whatever reason patient stays here on Tuesday Dr. Merino will be covering me during my unavailability. - Time Time Spent: 50 to 70 Minutes
[2017-12-05] MEDS: WARFARIN SODIUM 2 MG TABLET PO SCH (21:45)
[2017-12-05] MEDS: MIRTAZAPINE 15 MG TABLET PO SCH (21:45)
[2017-12-06] MEDS: LANSOPRAZOLE 30 MG TAB.RAP.DR PO SCH (05:54)
[2017-12-06 07:27] LABS: INTERNATIONAL RATION (INR) 1.36; PROTHROMBIN TIME 17.5 SEC (11.4-15.4)
--- NOTE | 2017-12-06 08:30 | PDOC PROGRESS REPORT ---
Subjective Subjective:: Patient is feeling still weak As reviewed the [facility] rehab note patient was week after the surgery Patient's was started on the Coumadin due to the atrial fibrillation's Patient still complaining of pain which is not controlled with the pain medications patient used to see her Dr. Smith's office for the pain management Patient seen by Dr. Angel and suggest that the chest wall pain and no need for further cardiac evaluations Reason For Visit: CHEST PAIN WITH RECENT BYPAS,ESRD ON HD,ANEMIA,HTN Physical Exam Vital Signs: Temp Pulse Resp BP Pulse Ox 98.6 F 78 14 98/47 L 96 12/06/17 07:45 12/06/17 07:45 12/06/17 07:45 12/06/17 07:45 12/06/17 07:45 Intake & Output 12/05/17 12/06/17 12/07/17 06:59 06:59 06:59 Intake Total 330 Output Total 2900 Balance -2570 Weight 79.4 kg General appearance: PRESENT: no acute distress, well-developed, well-nourished Head exam: PRESENT: atraumatic, normocephalic Eye exam: PRESENT: conjunctiva pink, EOMI, PERRLA. ABSENT: scleral icterus Ear exam: PRESENT: normal external ear exam Mouth exam: PRESENT: moist, tongue midline Neck exam: PRESENT: full ROM. ABSENT: carotid bruit, JVD, lymphadenopathy, thyromegaly Respiratory exam: PRESENT: clear to auscultation john Cardiovascular exam: PRESENT: RRR. ABSENT: diastolic murmur, rubs, systolic murmur Pulses: PRESENT: normal dorsalis pedis pul, +2 pedal pulses bilateral Vascular exam: PRESENT: normal capillary refill GI/Abdominal exam: PRESENT: normal bowel sounds, soft. ABSENT: distended, guarding, mass, organolmegaly, rebound, tenderness Rectal exam: PRESENT: deferred Extremities exam: ABSENT: pedal edema Musculoskeletal exam: PRESENT: ambulatory Neurological exam: PRESENT: alert, awake, oriented to person, oriented to place , oriented to time, oriented to situation, CN II-XII grossly intact. ABSENT: motor sensory deficit Psychiatric exam: PRESENT: appropriate affect, normal mood. ABSENT: homicidal ideation, suicidal ideation Skin exam: PRESENT: dry, intact, warm. ABSENT: cyanosis, rash Results Impressions: Chest X-Ray 12/04/17 03:17 IMPRESSION: 1. Cardiomegaly with small bilateral pleural effusions. Assessment & Plan - Diagnosis (1) Chest pain Qualifiers: Chest pain type: unspecified Qualified Code(s): R07.9 - Chest pain, unspecified Is this a current diagnosis for this admission?: Yes Plan: The chest wall pain (2) ESRD (end stage renal disease) Is this a current diagnosis for this admission?: Yes Plan: Currently scheduled for hemodialysis today (3) Anemia in chronic kidney disease (CKD) Qualifiers: Chronic kidney disease stage: on chronic dialysis Qualified Code(s): N18.6 - End stage renal disease Is this a current diagnosis for this admission?: Yes (4) Coronary artery disease Qualifiers: Coronary Disease-Associated Artery/Lesion type: unspecified vessel or lesion type Is this a current diagnosis for this admission?: Yes Plan: Follow with the cardiology patients need a private cardiac rehab (5) Diabetes mellitus Qualifiers: Diabetes mellitus type: type 2 Diabetes mellitus assisted insulin use: with assisted use Diabetes mellitus complication status: with neurologic complications Diabetes mellitus complication detail: with polyneuropathy Qualified Code(s): E11.42 - Type 2 diabetes mellitus with diabetic polyneuropathy Is this a current diagnosis for this admission?: Yes (6) Gastroesophageal reflux disease Qualifiers: Esophagitis presence: without esophagitis Qualified Code(s): K21.9 - Gastro -esophageal reflux disease without esophagitis Is this a current diagnosis for this admission?: Yes (7) Hypertension Qualifiers: Hypertension type: essential hypertension Qualified Code(s): I10 - Essential (primary) hypertension Is this a current diagnosis for this admission?: Yes (8) Chronic pain syndrome Is this a current diagnosis for this admission?: Yes Plan: We consult the pain management - Time Time Spent with patient: 15-24 minutes Medications reviewed and adjusted accordingly: Yes Anticipated discharge: Other Within: Other - Inpatient Certification Medical Necessity: Need Close Monitoring Due to Risk of Patient Decompensation Post Hospital Care: D/C Driver Examiner Documentation - Plan Summary Plan Summary: Will get the CT of the chest for further evaluations get the physical therapy evaluations and also pain management evaluations and consult the materials planner with the patient unable to go home to be considered rehab
--- NOTE | 2017-12-06 10:01 | RADIOLOGY REPORT (SQ) ---
EXAM DESCRIPTION: CT CHEST WITHOUT COMPLETED DATE/TIME: 12/06/2017 9:37 am REASON FOR STUDY: chest pain COMPARISON: 04/12/2017, 08/28/2015, 06/10/2015 CT chest exams Chest films 12/04/2017, 10/19/2017, 10/16/2017 TECHNIQUE: CT scan performed of the chest without intravenous contrast. Images reviewed with lung, soft tissue and bone windows. Reconstructed coronal and sagittal MPR images reviewed. All images st ored on PACS. All CT scanners at this facility use dose modulation, iterative reconstruction, and/or weight based d osing when appropriate to reduce radiation dose to as low as reasonably achievable (ALARA). [facility]: Dose Right [facility]: CareDose [facility]: Dose Right [facility]: Teradose 4D [facility]: Zenoss RADIATION DOSE: CT Rad equipment meets quality standard of care and radiation dose reduction techniq ues were employed. CTDIvol: 8.3 mGy. DLP: 310 mGy-cm. mGy. LIMITATIONS: No technical limitations. FINDINGS: LUNGS AND PLEURA: Trace bilateral pleural effusions are present. There is minimal right basilar atelectasis in the posterior costophrenic sulcus. Moderate left basil ar airspace disease is present atelectasis versus pneumonia. No pneumothorax. HILAR AND MEDIASTINAL STRUCTURES: Post recent sternotomy for CABG. Minimal soft tissue stranding in the prevascular anterior mediastinal fat, benign. HEART AND VASCULAR STRUCTURES: Post recent sternotomy and CABG. Moderate cardiomegaly. No pericardi al effusion. Heavily calcified mitral annulus. UPPER ABDOMEN: Heavily calcified arterial vascular structures THYROID AND OTHER SOFT TISSUES: Diffuse subcutaneous stranding and skin thickening over the chest wal l, likely due to third-spacing of fluid. BONES: Old T12 kyphoplasty with 25% loss of height of the T12 vertebral body. HARDWARE: Post recent sternotomy and CABG OTHER: No other significant findings. IMPRESSION: Trace bilateral pleural effusions. Minimal right basilar atelectasis. Moderate left ba silar airspace disease atelectasis versus pneumonia. No pneumothorax Recent sternotomy for CABG. TECHNICAL DOCUMENTATION: JOB ID: [id number] Quality ID # [id number]: Final reports with documentation of one or more dose reduction techniques (e.g., Au tomated exposure control, adjustment of the mA and/or kV according to patient size, use of iterative reconstruction technique) 2010 [employer]- All Rights Reserved Reading location - IP/workstation name: [email or web address]
[2017-12-06] MEDS: FERROUS SULFATE 325 MG TABLET PO SCH ×3 (10:52→18:11)
[2017-12-06] MEDS: CALCIUM ACETATE 667 MG CAPSULE PO SCH ×3 (10:52→18:12)
[2017-12-06] MEDS: ASPIRIN 81 MG TABLET, ENT COATED PO SCH (10:52)
[2017-12-06] MEDS: ATORVASTATIN CALCIUM 40 MG TABLET PO SCH (10:52)
[2017-12-06] MEDS: GABAPENTIN 100 MG CAPSULE PO SCH ×2 (10:53→23:13)
[2017-12-06] MEDS: CLOPIDOGREL BISULFATE 75 MG TABLET PO SCH (10:53)
[2017-12-06] MEDS: METOPROLOL SUCCINATE 25 MG TAB.SR.24H PO SCH (10:53)
[2017-12-06] MEDS ORDERED: CEFUROXIME 500 MG TABLET PO SCH ×2 (12:00→18:00)
[2017-12-06] MEDS: HYDROMORPHONE HCL 2 MG TABLET PO PRN (20:34)
[2017-12-06] MEDS: WARFARIN SODIUM 2 MG TABLET PO SCH (23:13)
[2017-12-06] MEDS: MIRTAZAPINE 15 MG TABLET PO SCH (23:13)
[2017-12-07] MEDS: ACETAMINOPHEN 325 MG TABLET PO PRN ×2 (02:34→09:10)
[2017-12-07] MEDS: HYDROMORPHONE HCL 2 MG TABLET PO PRN ×2 (05:16→18:08)
[2017-12-07] MEDS: LANSOPRAZOLE 30 MG TAB.RAP.DR PO SCH (05:17)
[2017-12-07 06:38] LABS: INTERNATIONAL RATION (INR) 1.22; PROTHROMBIN TIME 16.1 SEC (11.4-15.4)
[2017-12-07] MEDS: CALCIUM ACETATE 667 MG CAPSULE PO SCH ×3 (08:16→18:01)
[2017-12-07] MEDS: FERROUS SULFATE 325 MG TABLET PO SCH ×3 (08:16→18:01)
[2017-12-07] MEDS: GABAPENTIN 100 MG CAPSULE PO SCH ×2 (09:09→21:21)
[2017-12-07] MEDS: ASPIRIN 81 MG TABLET, ENT COATED PO SCH (09:09)
[2017-12-07] MEDS: CLOPIDOGREL BISULFATE 75 MG TABLET PO SCH (09:10)
[2017-12-07] MEDS: METOPROLOL SUCCINATE 25 MG TAB.SR.24H PO SCH (09:10)
[2017-12-07] MEDS: ATORVASTATIN CALCIUM 40 MG TABLET PO SCH (09:12)
--- NOTE | 2017-12-07 10:16 | PDOC PROGRESS REPORT ---
Subjective Progress Note for:: 12/07/17 Subjective:: Patient is feeling still weak As reviewed the [facility] note patient was week after the surgery Patient's was started on the Coumadin due to the atrial fibrillation's Patient still complaining of pain which is not controlled with the pain medications patient used to see her Dr. Smith's office for the pain management Patient seen by Dr. Angel and suggest that the chest wall pain and no need for further cardiac evaluations Reason For Visit: CHEST PAIN WITH RECENT BYPAS,ESRD ON HD,ANEMIA,HTN Physical Exam Vital Signs: Temp Pulse Resp BP Pulse Ox 98.1 F 64 16 101/52 L 100 12/07/17 07:42 12/07/17 07:42 12/07/17 07:42 12/07/17 07:42 12/07/17 07:42 Intake & Output 12/06/17 12/07/17 12/08/17 06:59 06:59 06:59 Intake Total 330 840 Output Total 2900 Balance -2570 840 Weight 79.4 kg 83.4 kg General appearance: PRESENT: no acute distress, well-developed, well-nourished Head exam: PRESENT: atraumatic, normocephalic Eye exam: PRESENT: conjunctiva pink, EOMI, PERRLA. ABSENT: scleral icterus Ear exam: PRESENT: normal external ear exam Mouth exam: PRESENT: moist, tongue midline Neck exam: PRESENT: full ROM. ABSENT: carotid bruit, JVD, lymphadenopathy, thyromegaly Respiratory exam: PRESENT: clear to auscultation john Cardiovascular exam: PRESENT: RRR. ABSENT: diastolic murmur, rubs, systolic murmur Pulses: PRESENT: normal dorsalis pedis pul, +2 pedal pulses bilateral Vascular exam: PRESENT: normal capillary refill GI/Abdominal exam: PRESENT: normal bowel sounds, soft. ABSENT: distended, guarding, mass, organolmegaly, rebound, tenderness Rectal exam: PRESENT: deferred Extremities exam: ABSENT: pedal edema Musculoskeletal exam: PRESENT: ambulatory Neurological exam: PRESENT: alert, awake, oriented to person, oriented to place , oriented to time, oriented to situation, CN II-XII grossly intact. ABSENT: motor sensory deficit Psychiatric exam: PRESENT: appropriate affect, normal mood. ABSENT: homicidal ideation, suicidal ideation Skin exam: PRESENT: dry, intact, warm. ABSENT: cyanosis, rash Results Laboratory Results: 12/06/17 16:38 Stool Occult Blood NEGATIVE Impressions: Chest X-Ray 12/04/17 03:17 IMPRESSION: 1. Cardiomegaly with small bilateral pleural effusions. Chest CT 12/06/17 00:00 IMPRESSION: Trace bilateral pleural effusions. Minimal right basilar atelectasis. Moderate left basilar airspace disease atelectasis versus pneumonia. No pneumothorax Recent sternotomy for CABG. Assessment & Plan - Diagnosis (1) Chest pain Qualifiers: Chest pain type: unspecified Qualified Code(s): R07.9 - Chest pain, unspecified Is this a current diagnosis for this admission?: Yes Plan: The chest wall pain (2) ESRD (end stage renal disease) Is this a current diagnosis for this admission?: Yes Plan: Currently scheduled for hemodialysis today (3) Anemia in chronic kidney disease (CKD) Qualifiers: Chronic kidney disease stage: on chronic dialysis Qualified Code(s): N18.6 - End stage renal disease Is this a current diagnosis for this admission?: Yes (4) Coronary artery disease Qualifiers: Coronary Disease-Associated Artery/Lesion type: unspecified vessel or lesion type Is this a current diagnosis for this admission?: Yes Plan: Follow with the cardiology patients need a private cardiac rehab (5) Diabetes mellitus Qualifiers: Diabetes mellitus type: type 2 Diabetes mellitus mcc insulin use: with mcc use Diabetes mellitus complication status: with neurologic complications Diabetes mellitus complication detail: with polyneuropathy Qualified Code(s): E11.42 - Type 2 diabetes mellitus with diabetic polyneuropathy Is this a current diagnosis for this admission?: Yes (6) Gastroesophageal reflux disease Qualifiers: Esophagitis presence: without esophagitis Qualified Code(s): K21.9 - Gastro -esophageal reflux disease without esophagitis Is this a current diagnosis for this admission?: Yes (7) Hypertension Qualifiers: Hypertension type: essential hypertension Qualified Code(s): I10 - Essential (primary) hypertension Is this a current diagnosis for this admission?: Yes (8) Chronic pain syndrome Is this a current diagnosis for this admission?: Yes Plan: Follow with the pain management (9) Atrial fibrillation Qualifiers: Atrial fibrillation type: unspecified Qualified Code(s): I48.91 - Unspecified atrial fibrillation Is this a current diagnosis for this admission?: Yes Plan: Status post bypass surgery put the patient on Eliquis 2.5 mg because of the patient is very noncompliance to check the Coumadin discussed with the Dr. Angle and suggest continues to Eliquis is better for patient and also discussed with the patient and the and the bedside regarding the side effect of the Eliquis continues to monitor in the fall pecuation
--- NOTE | 2017-12-07 13:10 | PDOC PROGRESS REPORT ---
Subjective Progress Note for:: 12/07/17 Reason For Visit: Patient seen today on dialysis. He was admitted with right sided chest pains. Recently underwent CABG. Has a mild cough and then it hurts his chest even more. His initial BP was low. Discussed with treating stem teacher Bri to prime him and and then start QB ar 250 cc/min. He is undergoing dialysis without any other issues. Labs and medications were reviewed with him. Physical Exam Vital Signs: Temp Pulse Resp BP Pulse Ox 98.1 F 64 16 101/52 L 100 12/07/17 07:42 12/07/17 07:42 12/07/17 07:42 12/07/17 07:42 12/07/17 07:42 Intake & Output 12/06/17 12/07/17 12/08/17 06:59 06:59 06:59 Intake Total 330 840 Output Total 2900 Balance -2570 840 Weight 79.4 kg 83.4 kg General appearance: PRESENT: no acute distress Respiratory exam: PRESENT: clear to auscultation john. ABSENT: crackles Cardiovascular exam: PRESENT: +S1, +S2 Extremities exam: ABSENT: pedal edema Neurological exam: PRESENT: alert, awake, oriented to person, oriented to place Skin exam: PRESENT: skin tears - on left leg where he apparently had his vein harvested for the CABG. No sign of infection. Results Laboratory Results: 12/06/17 16:38 Stool Occult Blood NEGATIVE Impressions: Chest X-Ray 12/04/17 03:17 IMPRESSION: 1. Cardiomegaly with small bilateral pleural effusions. Chest CT 12/06/17 00:00 IMPRESSION: Trace bilateral pleural effusions. Minimal right basilar atelectasis. Moderate left basilar airspace disease atelectasis versus pneumonia. No pneumothorax Recent sternotomy for CABG. Assessment & Plan - Diagnosis (1) ESRD (end stage renal disease) Is this a current diagnosis for this admission?: Yes Plan: Patient seen on dialysis today.Hypotensive to begin with and better after priming. He is undergoing dialysis without any other issues. Plan to remove 1 L as tolerated. Orders were reviewed with the treating stem teacher. (2) Diabetes mellitus Qualifiers: Diabetes mellitus type: type 2 Diabetes mellitus alf insulin use: with alf use Diabetes mellitus complication status: with neurologic complications Diabetes mellitus complication detail: with polyneuropathy Qualified Code(s): E11.42 - Type 2 diabetes mellitus with diabetic polyneuropathy Is this a current diagnosis for this admission?: Yes Plan: Adv on tight control. (3) Hyperkalemia Plan: He is a 2 K bath.Should respond to dialysis today. Adv him on a low K diet. (4) Chest pain Qualifiers: Chest pain type: unspecified Qualified Code(s): R07.9 - Chest pain, unspecified Is this a current diagnosis for this admission?: Yes Plan: Improving.As per Dr Baez. (5) Hypotension Plan: Monitor. No evidence of sepsis, PE. INR is 1.2 .Will increase dosage of warfarin. Also start IV Rocephin atthe expense of cefuroxime.Get CXR
[2017-12-07] MEDS ORDERED: CEFTRIAXONE SODIUM 1,000 MG in DEXTROSE 5%-WATER 50 ML IV SCH (14:00)
[2017-12-07 15:21] LABS: ANION GAP 13 (5-19); BLOOD UREA NITROGEN 49 mg/dL (7-20); CALCIUM 8.1 mg/dL (8.4-10.2); CARBON DIOXIDE 28 mmol/L (22-30); CHLORIDE 100 mmol/L (98-107); GLUCOSE 104 mg/dL (75-110); POTASSIUM 5.8 mmol/L (3.6-5.0); SODIUM 141.1 mmol/L (137-145)
[2017-12-07 15:28] LABS: ANION GAP 13 (5-19); BLOOD UREA NITROGEN 50 mg/dL (7-20); CALCIUM 7.9 mg/dL (8.4-10.2); CARBON DIOXIDE 29 mmol/L (22-30); CHLORIDE 97 mmol/L (98-107); GLUCOSE 117 mg/dL (75-110); POTASSIUM 5.4 mmol/L (3.6-5.0); SODIUM 139.4 mmol/L (137-145)
[2017-12-07] MEDS ORDERED: EPOETIN ALFA 10,000 UNIT in SYRINGE, DISPOSABLE, 1 EACH IV ONE (17:00)
[2017-12-07] MEDS: CEFTRIAXONE SODIUM 1,000 MG in DEXTROSE 5%-WATER 50 ML IV SCH (18:01)
--- NOTE | 2017-12-07 19:45 | RADIOLOGY REPORT (SQ) ---
EXAM DESCRIPTION: CHEST SINGLE VIEW COMPLETED DATE/TIME: 12/07/2017 7:33 pm REASON FOR STUDY: cough COMPARISON: 12/04/2017 EXAM PARAMETERS: NUMBER OF VIEWS: One view. TECHNIQUE: Single frontal radiographic view of the chest acquired. RADIATION DOSE: NA LIMITATIONS: None. FINDINGS: LUNGS AND PLEURA: There is increased opacification in the left base. Left pleural effusio n. Elevated left diaphragm. Increased right pleural effusion. MEDIASTINUM AND HILAR STRUCTURES: No masses. Contour normal. HEART AND VASCULAR STRUCTURES: Cardiomegaly. BONES: No acute findings. HARDWARE: Sternotomy wires. Graft markers. OTHER: No other significant finding. IMPRESSION: 1. Cardiomegaly without caro CHF. 2. Increased pleural effusions. 3. Increased opacification in the retrocardiac area. Cannot exclude left lower lobe pneumonia. TECHNICAL DOCUMENTATION: JOB ID: [id number] [employer]- All Rights Reserved Reading location - IP/workstation name: [email or web address]
[2017-12-07] MEDS: MIRTAZAPINE 15 MG TABLET PO SCH (21:21)
[2017-12-07] MEDS ORDERED: WARFARIN SODIUM 2 MG TABLET PO SCH (22:00)
[2017-12-08] MEDS: LANSOPRAZOLE 30 MG TAB.RAP.DR PO SCH (05:17)
[2017-12-08 06:27] LABS: INTERNATIONAL RATION (INR) 1.19; PROTHROMBIN TIME 15.7 SEC (11.4-15.4)
[2017-12-08 06:42] LABS: ANION GAP 12 (5-19); BLOOD UREA NITROGEN 33 mg/dL (7-20); CALCIUM 7.9 mg/dL (8.4-10.2); CARBON DIOXIDE 31 mmol/L (22-30); CHLORIDE 97 mmol/L (98-107); GLUCOSE 151 mg/dL (75-110); POTASSIUM 5.2 mmol/L (3.6-5.0); SODIUM 140.4 mmol/L (137-145)
[2017-12-08] MEDS ORDERED: IPRATROPIUM/ALBUTEROL 0.5-2.5 MG/3 ML AMPUL NEB PRN (08:20)
[2017-12-08] MEDS: CALCIUM ACETATE 667 MG CAPSULE PO SCH ×3 (09:40→18:32)
[2017-12-08] MEDS: ATORVASTATIN CALCIUM 40 MG TABLET PO SCH (09:40)
[2017-12-08] MEDS: ASPIRIN 81 MG TABLET, ENT COATED PO SCH (09:40)
[2017-12-08] MEDS: CLOPIDOGREL BISULFATE 75 MG TABLET PO SCH (09:40)
[2017-12-08] MEDS: GABAPENTIN 100 MG CAPSULE PO SCH ×2 (09:40→22:01)
[2017-12-08] MEDS: FERROUS SULFATE 325 MG TABLET PO SCH ×3 (09:41→18:33)
[2017-12-08] MEDS: METOPROLOL SUCCINATE 25 MG TAB.SR.24H PO SCH (09:41)
[2017-12-08] MEDS: APIXABAN 2.5 MG TABLET PO SCH ×2 (09:54→22:01)
--- NOTE | 2017-12-08 10:37 | PDOC PROGRESS REPORT ---
Subjective Progress Note for:: 12/08/17 Reason For Visit: CHEST PAIN WITH RECENT BYPAS,ESRD ON HD,ANEMIA,HTN Patient's blood pressure was low yesterday after dialysis and Dr. Merino start the patient on IV Rocephin and order the chest x-ray Chest x-ray so some atelectasis versus questionable pneumonia Patient's complaining some mild cough and congestion's Still ongoing problem with the chronic pain Patient's denied any short of breath Physical Exam Vital Signs: Temp Pulse Resp BP Pulse Ox 99.2 F 62 16 80/42 L 95 12/08/17 08:39 12/08/17 08:40 12/08/17 08:40 12/08/17 08:39 12/08/17 08:40 Intake & Output 12/07/17 12/08/17 12/09/17 06:59 06:59 06:59 Intake Total 840 599 Output Total 1500 Balance 840 -901 Weight 83.4 kg 79.9 kg General appearance: PRESENT: no acute distress, well-developed, well-nourished Head exam: PRESENT: atraumatic, normocephalic Eye exam: PRESENT: conjunctiva pink, EOMI, PERRLA. ABSENT: scleral icterus Ear exam: PRESENT: normal external ear exam Mouth exam: PRESENT: moist, tongue midline Neck exam: PRESENT: full ROM. ABSENT: carotid bruit, JVD, lymphadenopathy, thyromegaly Respiratory exam: PRESENT: clear to auscultation john Cardiovascular exam: PRESENT: RRR. ABSENT: diastolic murmur, rubs, systolic murmur Pulses: PRESENT: normal dorsalis pedis pul, +2 pedal pulses bilateral Vascular exam: PRESENT: normal capillary refill GI/Abdominal exam: PRESENT: normal bowel sounds, soft. ABSENT: distended, guarding, mass, organolmegaly, rebound, tenderness Rectal exam: PRESENT: deferred Extremities exam: ABSENT: pedal edema Musculoskeletal exam: PRESENT: ambulatory Neurological exam: PRESENT: alert, awake, oriented to person, oriented to place , oriented to time, oriented to situation, CN II-XII grossly intact. ABSENT: motor sensory deficit Psychiatric exam: PRESENT: appropriate affect, normal mood. ABSENT: homicidal ideation, suicidal ideation Skin exam: PRESENT: dry, intact, warm. ABSENT: cyanosis, rash Results Laboratory Results: 12/08/17 05:25 12/07/17 12/07/17 12/08/17 05:41 13:57 05:25 Sodium 141.1 139.4 140.4 Potassium 5.8 H 5.4 H 5.2 H Chloride 100 97 L 97 L Carbon Dioxide 28 29 31 H Anion Gap 13 13 12 BUN 49 H 50 H 33 H Creatinine 9.31 H 9.69 H 6.56 H Est GFR ( Amer) 7 L 7 L 10 L Est GFR (Non-Af Amer) 6 L 5 L 9 L Glucose 104 117 H 151 H Calcium 8.1 L 7.9 L 7.9 L Impressions: Chest CT 12/06/17 00:00 IMPRESSION: Trace bilateral pleural effusions. Minimal right basilar atelectasis. Moderate left basilar airspace disease atelectasis versus pneumonia. No pneumothorax Recent sternotomy for CABG. Chest X-Ray 12/07/17 13:30 IMPRESSION: 1. Cardiomegaly without caro CHF. 2. Increased pleural effusions. 3. Increased opacification in the retrocardiac area. Cannot exclude left lower lobe pneumonia. Assessment & Plan - Diagnosis (1) Chest pain Qualifiers: Chest pain type: unspecified Qualified Code(s): R07.9 - Chest pain, unspecified Is this a current diagnosis for this admission?: Yes Plan: Chest wall pain discussed with the patient about the use the incentive spirometry because of the patient's pain patient started developing atelectasis and possible getting the pneumonia (2) ESRD (end stage renal disease) Is this a current diagnosis for this admission?: Yes Plan: Currently scheduled for hemodialysis today (3) Anemia in chronic kidney disease (CKD) Qualifiers: Chronic kidney disease stage: on chronic dialysis Qualified Code(s): N18.6 - End stage renal disease Is this a current diagnosis for this admission?: Yes (4) Coronary artery disease Qualifiers: Coronary Disease-Associated Artery/Lesion type: unspecified vessel or lesion type Is this a current diagnosis for this admission?: Yes Plan: Follow with the cardiology patients need a private cardiac rehab (5) Diabetes mellitus Qualifiers: Diabetes mellitus type: type 2 Diabetes mellitus drafter patent insulin use: with usp use Diabetes mellitus complication status: with neurologic complications Diabetes mellitus complication detail: with polyneuropathy Qualified Code(s): E11.42 - Type 2 diabetes mellitus with diabetic polyneuropathy Is this a current diagnosis for this admission?: Yes (6) Gastroesophageal reflux disease Qualifiers: Esophagitis presence: without esophagitis Qualified Code(s): K21.9 - Gastro -esophageal reflux disease without esophagitis Is this a current diagnosis for this admission?: Yes (7) Hypertension Qualifiers: Hypertension type: essential hypertension Qualified Code(s): I10 - Essential (primary) hypertension Is this a current diagnosis for this admission?: Yes (8) Chronic pain syndrome Is this a current diagnosis for this admission?: Yes Plan: Follow with the pain management (9) Atrial fibrillation Qualifiers: Atrial fibrillation type: unspecified Qualified Code(s): I48.91 - Unspecified atrial fibrillation Is this a current diagnosis for this admission?: Yes Plan: Will start the patient on Eliquis already started in the past and why is not on the medications and stop the Coumadin - Time Time Spent with patient: 15-24 minutes Medications reviewed and adjusted accordingly: Yes Anticipated discharge: SNF Within: Other - Inpatient Certification Medical Necessity: Need Close Monitoring Due to Risk of Patient Decompensation, Need for IV Antibiotics Post Hospital Care: D/C Director Financial Planning Documentation - Plan Summary Plan Summary: Discussed with the patient and the with the patient on multiple comorbidity will get the respiratory treatments incentive spirometry and continues IV Rocephin
[2017-12-08] MEDS: CEFTRIAXONE SODIUM 1,000 MG in DEXTROSE 5%-WATER 50 ML IV SCH (14:02)
[2017-12-08] MEDS: HYDROMORPHONE HCL 2 MG TABLET PO PRN (19:54)
[2017-12-08] MEDS: MIRTAZAPINE 15 MG TABLET PO SCH (22:01)
[2017-12-09] MEDS: ACETAMINOPHEN 325 MG TABLET PO PRN ×3 (02:56→19:50)
[2017-12-09 05:43] LABS: INTERNATIONAL RATION (INR) 1.28; PROTHROMBIN TIME 16.6 SEC (11.4-15.4)
[2017-12-09 05:47] LABS: ABSOLUTE BASOPHILS # (AUTO) 0.1 10^3/uL (0.0-0.2); ABSOLUTE EOSINOPHILS # (AUTO) 0.3 10^3/uL (0.0-0.6); ABSOLUTE LYMPHOCYTES (AUTO) 0.7 10^3/uL (0.5-4.7); ABSOLUTE MONOCYTES (AUTO) 0.8 10^3/uL (0.1-1.4); ABSOLUTE NEUT (AUTO) 6.6 10^3/uL (1.7-8.2); EOSINOPHILS % (AUTO) 3.8 % (0-6); HEMATOCRIT 29.3 % (37.9-51.0); HEMOGLOBIN 9.6 g/dL (13.5-17.0); LYMPHOCYTES % (AUTO) 7.9 % (13-45); MEAN CORPUSCULAR HEMOGLOBIN 31.7 pg (27.0-33.4); MEAN CORPUSCULAR HGB CONC 32.6 g/dL (32.0-36.0); MEAN CORPUSCULAR VOLUME 97 fl (80-97); MONOCYTES % (AUTO) 9.4 % (3-13); PLATELET COUNT 245 10^3/uL (150-450); RED BLOOD COUNT 3.01 10^6/uL (4.35-5.55); SEGMENTED NEUTROPHILS % (AUTO) 77.9 % (42-78); TOTAL CELLS COUNTED % (AUTO) 100 %; WHITE BLOOD COUNT 8.5 10^3/uL (4.0-10.5)
[2017-12-09 05:58] LABS: ANION GAP 13 (5-19); BLOOD UREA NITROGEN 47 mg/dL (7-20); CALCIUM 8.2 mg/dL (8.4-10.2); CARBON DIOXIDE 31 mmol/L (22-30); CHLORIDE 99 mmol/L (98-107); GLUCOSE 143 mg/dL (75-110); POTASSIUM 5.4 mmol/L (3.6-5.0); SODIUM 143.1 mmol/L (137-145)
[2017-12-09 06:22] LABS: ANISOCYTOSIS 3+; OVALOCYTES SLIGHT; PLATELET COMMENT ADEQUATE; POIKILOCYTOSIS 1+; TARGET CELLS SLIGHT; TEAR DROP CELLS SLIGHT; TOXIC VACUOLATION PRESENT
--- NOTE | 2017-12-09 08:52 | PDOC PROGRESS REPORT ---
Subjective Progress Note for:: 12/09/17 Subjective:: Patient is currently doing fair Patient's white count is normal and no fever no chills Patient's blood pressure is running in the lower end Reason For Visit: CHEST PAIN WITH RECENT BYPAS,ESRD ON HD,ANEMIA,HTN Physical Exam Vital Signs: Temp Pulse Resp BP Pulse Ox 98.9 F 68 18 112/68 98 12/09/17 04:00 12/09/17 04:00 12/09/17 04:00 12/09/17 04:00 12/09/17 04:00 Intake & Output 12/08/17 12/09/17 12/10/17 06:59 06:59 06:59 Intake Total 599 590 Output Total 1500 0 Balance -901 590 Weight 79.9 kg General appearance: PRESENT: no acute distress, well-developed, well-nourished Head exam: PRESENT: atraumatic, normocephalic Eye exam: PRESENT: conjunctiva pink, EOMI, PERRLA. ABSENT: scleral icterus Ear exam: PRESENT: normal external ear exam Mouth exam: PRESENT: moist, tongue midline Neck exam: PRESENT: full ROM. ABSENT: carotid bruit, JVD, lymphadenopathy, thyromegaly Respiratory exam: PRESENT: clear to auscultation john Cardiovascular exam: PRESENT: RRR. ABSENT: diastolic murmur, rubs, systolic murmur Pulses: PRESENT: normal dorsalis pedis pul, +2 pedal pulses bilateral Vascular exam: PRESENT: normal capillary refill GI/Abdominal exam: PRESENT: normal bowel sounds, soft. ABSENT: distended, guarding, mass, organolmegaly, rebound, tenderness Rectal exam: PRESENT: deferred Musculoskeletal exam: PRESENT: ambulatory Neurological exam: PRESENT: alert, awake, oriented to person, oriented to place , oriented to time, oriented to situation, CN II-XII grossly intact. ABSENT: motor sensory deficit Psychiatric exam: PRESENT: appropriate affect, normal mood. ABSENT: homicidal ideation, suicidal ideation Skin exam: PRESENT: dry, intact, warm. ABSENT: cyanosis, rash Results Laboratory Results: 12/09/17 05:14 12/09/17 05:14 12/09/17 12/09/17 05:14 05:14 WBC 8.5 RBC 3.01 L Hgb 9.6 L Hct 29.3 L MCV 97 MCH 31.7 MCHC 32.6 RDW 26.0 H Plt Count 245 Seg Neutrophils % 77.9 Lymphocytes % 7.9 L Monocytes % 9.4 Eosinophils % 3.8 Basophils % 1.0 Absolute Neutrophils 6.6 Absolute Lymphocytes 0.7 Absolute Monocytes 0.8 Absolute Eosinophils 0.3 Absolute Basophils 0.1 Sodium 143.1 Potassium 5.4 H Chloride 99 Carbon Dioxide 31 H Anion Gap 13 BUN 47 H Creatinine 9.06 H Est GFR ( Amer) 7 L Est GFR (Non-Af Amer) 6 L Glucose 143 H Calcium 8.2 L Impressions: Chest CT 12/06/17 00:00 IMPRESSION: Trace bilateral pleural effusions. Minimal right basilar atelectasis. Moderate left basilar airspace disease atelectasis versus pneumonia. No pneumothorax Recent sternotomy for CABG. Chest X-Ray 12/07/17 13:30 IMPRESSION: 1. Cardiomegaly without caro CHF. 2. Increased pleural effusions. 3. Increased opacification in the retrocardiac area. Cannot exclude left lower lobe pneumonia. Assessment & Plan - Diagnosis (1) Chest pain Qualifiers: Chest pain type: unspecified Qualified Code(s): R07.9 - Chest pain, unspecified Is this a current diagnosis for this admission?: Yes Plan: Chest wall pain discussed with the patient about the use the incentive spirometry because of the patient's pain patient started developing atelectasis and possible getting the pneumonia (2) ESRD (end stage renal disease) Is this a current diagnosis for this admission?: Yes Plan: Currently scheduled for hemodialysis today (3) Anemia in chronic kidney disease (CKD) Qualifiers: Chronic kidney disease stage: on chronic dialysis Qualified Code(s): N18.6 - End stage renal disease Is this a current diagnosis for this admission?: Yes (4) Coronary artery disease Qualifiers: Coronary Disease-Associated Artery/Lesion type: unspecified vessel or lesion type Is this a current diagnosis for this admission?: Yes Plan: Follow with the cardiology patients need a private cardiac rehab (5) Diabetes mellitus Qualifiers: Diabetes mellitus type: type 2 Diabetes mellitus usp insulin use: with usp use Diabetes mellitus complication status: with neurologic complications Diabetes mellitus complication detail: with polyneuropathy Qualified Code(s): E11.42 - Type 2 diabetes mellitus with diabetic polyneuropathy Is this a current diagnosis for this admission?: Yes (6) Gastroesophageal reflux disease Qualifiers: Esophagitis presence: without esophagitis Qualified Code(s): K21.9 - Gastro -esophageal reflux disease without esophagitis Is this a current diagnosis for this admission?: Yes (7) Hypertension Qualifiers: Hypertension type: essential hypertension Qualified Code(s): I10 - Essential (primary) hypertension Is this a current diagnosis for this admission?: Yes (8) Chronic pain syndrome Is this a current diagnosis for this admission?: Yes Plan: Follow with the pain management (9) Atrial fibrillation Qualifiers: Atrial fibrillation type: unspecified Qualified Code(s): I48.91 - Unspecified atrial fibrillation Is this a current diagnosis for this admission?: Yes - Time Time Spent with patient: 15-24 minutes Medications reviewed and adjusted accordingly: Yes Anticipated discharge: SNF Within: Other - Inpatient Certification Medical Necessity: Need Close Monitoring Due to Risk of Patient Decompensation Post Hospital Care: D/C Medical Scribe Documentation - Plan Summary Plan Summary: Continues to current medications discussed with the regarding the patient' s current conditions
--- NOTE | 2017-12-09 12:13 | PDOC PROGRESS REPORT ---
Subjective Progress Note for:: 12/09/17 Reason For Visit: Patient seen on dialysis today. Some improvement in his chest pain. He denies any history of shortness of breath, fever or chills. Undergoing dialysis without any issues. Labs and medications were reviewed. Dialysis orders were reviewed with the treating dialysis nurse. Physical Exam Vital Signs: Temp Pulse Resp BP Pulse Ox 98.9 F 68 18 112/68 98 12/09/17 04:00 12/09/17 04:00 12/09/17 04:00 12/09/17 04:00 12/09/17 04:00 Intake & Output 12/08/17 12/09/17 12/10/17 06:59 06:59 06:59 Intake Total 599 590 Output Total 1500 0 Balance -901 590 Weight 79.9 kg General appearance: PRESENT: no acute distress Respiratory exam: PRESENT: clear to auscultation john. ABSENT: crackles, rhonchi Cardiovascular exam: PRESENT: +S1, +S2 Neurological exam: PRESENT: alert, awake, oriented to person, oriented to place Results Laboratory Results: 12/09/17 05:14 12/09/17 05:14 12/09/17 12/09/17 05:14 05:14 WBC 8.5 RBC 3.01 L Hgb 9.6 L Hct 29.3 L MCV 97 MCH 31.7 MCHC 32.6 RDW 26.0 H Plt Count 245 Seg Neutrophils % 77.9 Lymphocytes % 7.9 L Monocytes % 9.4 Eosinophils % 3.8 Basophils % 1.0 Absolute Neutrophils 6.6 Absolute Lymphocytes 0.7 Absolute Monocytes 0.8 Absolute Eosinophils 0.3 Absolute Basophils 0.1 Sodium 143.1 Potassium 5.4 H Chloride 99 Carbon Dioxide 31 H Anion Gap 13 BUN 47 H Creatinine 9.06 H Est GFR ( Amer) 7 L Est GFR (Non-Af Amer) 6 L Glucose 143 H Calcium 8.2 L Impressions: Chest CT 12/06/17 00:00 IMPRESSION: Trace bilateral pleural effusions. Minimal right basilar atelectasis. Moderate left basilar airspace disease atelectasis versus pneumonia. No pneumothorax Recent sternotomy for CABG. Chest X-Ray 12/07/17 13:30 IMPRESSION: 1. Cardiomegaly without caro CHF. 2. Increased pleural effusions. 3. Increased opacification in the retrocardiac area. Cannot exclude left lower lobe pneumonia. Assessment & Plan - Diagnosis (1) ESRD (end stage renal disease) Is this a current diagnosis for this admission?: Yes Plan: Patient seen on dialysis today. He is undergoing dialysis without any other issues. Plan to remove 1 L as tolerated. Orders were reviewed with the treating babcock tester. (2) Diabetes mellitus Qualifiers: Diabetes mellitus type: type 2 Diabetes mellitus residential insulin use: with residential use Diabetes mellitus complication status: with neurologic complications Diabetes mellitus complication detail: with polyneuropathy Qualified Code(s): E11.42 - Type 2 diabetes mellitus with diabetic polyneuropathy Is this a current diagnosis for this admission?: Yes Plan: Adv on tight control. (3) Hyperkalemia Plan: He is a 2 K bath.Should respond to dialysis today. Adv him on a low K diet. (4) Chest pain Qualifiers: Chest pain type: unspecified Qualified Code(s): R07.9 - Chest pain, unspecified Is this a current diagnosis for this admission?: Yes Plan: Improving.As per Dr Baez. (5) Hypotension Plan: Chronic. Check random cortisol.
[2017-12-09] MEDS ORDERED: EPOETIN ALFA 10,000 UNIT in SYRINGE, DISPOSABLE, 1 EACH IV PRN (12:30)
[2017-12-09] MEDS: ATORVASTATIN CALCIUM 40 MG TABLET PO SCH (12:46)
[2017-12-09] MEDS: CLOPIDOGREL BISULFATE 75 MG TABLET PO SCH (12:47)
[2017-12-09] MEDS: GABAPENTIN 100 MG CAPSULE PO SCH ×2 (12:47→22:23)
[2017-12-09] MEDS: ASPIRIN 81 MG TABLET, ENT COATED PO SCH (12:47)
[2017-12-09] MEDS: CALCIUM ACETATE 667 MG CAPSULE PO SCH ×3 (12:49→17:43)
[2017-12-09] MEDS: APIXABAN 2.5 MG TABLET PO SCH ×2 (12:50→22:23)
[2017-12-09] MEDS: FERROUS SULFATE 325 MG TABLET PO SCH ×3 (12:50→17:43)
[2017-12-09] MEDS: METOPROLOL SUCCINATE 25 MG TAB.SR.24H PO SCH (12:54)
[2017-12-09] MEDS: CEFTRIAXONE SODIUM 1,000 MG in DEXTROSE 5%-WATER 50 ML IV SCH (15:35)
[2017-12-09] MEDS: MIDODRINE HCL 5 MG TABLET PO SCH (17:44)
[2017-12-09] MEDS: MIRTAZAPINE 15 MG TABLET PO SCH (22:23)
[2017-12-09] MEDS: LANSOPRAZOLE 30 MG TAB.RAP.DR PO SCH (22:48)
[2017-12-10 05:33] LABS: ANION GAP 12 (5-19); BLOOD UREA NITROGEN 33 mg/dL (7-20); CALCIUM 8.5 mg/dL (8.4-10.2); CARBON DIOXIDE 36 mmol/L (22-30); CHLORIDE 96 mmol/L (98-107); GLUCOSE 119 mg/dL (75-110); POTASSIUM 4.5 mmol/L (3.6-5.0); SODIUM 144.2 mmol/L (137-145)
[2017-12-10] MEDS: LANSOPRAZOLE 30 MG TAB.RAP.DR PO SCH (09:37)
[2017-12-10] MEDS: ATORVASTATIN CALCIUM 40 MG TABLET PO SCH (09:41)
[2017-12-10] MEDS: CLOPIDOGREL BISULFATE 75 MG TABLET PO SCH (09:41)
[2017-12-10] MEDS: FERROUS SULFATE 325 MG TABLET PO SCH ×3 (09:41→18:00)
[2017-12-10] MEDS: GABAPENTIN 100 MG CAPSULE PO SCH ×2 (09:42→21:48)
[2017-12-10] MEDS: MIDODRINE HCL 5 MG TABLET PO SCH ×3 (09:42→18:00)
[2017-12-10] MEDS: APIXABAN 2.5 MG TABLET PO SCH ×2 (09:42→21:48)
[2017-12-10] MEDS: METOPROLOL SUCCINATE 25 MG TAB.SR.24H PO SCH (09:42)
[2017-12-10] MEDS: ASPIRIN 81 MG TABLET, ENT COATED PO SCH (09:42)
[2017-12-10] MEDS: CALCIUM ACETATE 667 MG CAPSULE PO SCH ×3 (09:42→18:00)
[2017-12-10] MEDS: ACETAMINOPHEN 325 MG TABLET PO PRN (09:57)
--- NOTE | 2017-12-10 10:51 | PDOC PROGRESS REPORT ---
Subjective Progress Note for:: 12/10/17 Subjective:: Patient is currently doing fair Patient's white count is normal and no fever no chills Patient's blood pressure is running in the lower end Reason For Visit: CHEST PAIN WITH RECENT BYPAS,ESRD ON HD,ANEMIA,HTN Physical Exam Vital Signs: Temp Pulse Resp BP Pulse Ox 98.6 F 78 16 120/64 92 12/10/17 07:54 12/10/17 07:54 12/10/17 07:54 12/10/17 07:54 12/10/17 07:54 Intake & Output 12/09/17 12/10/17 12/11/17 06:59 06:59 06:59 Intake Total 590 577 Output Total 0 2000 Balance 590 -1423 Weight 83.5 kg General appearance: PRESENT: no acute distress, well-developed, well-nourished Head exam: PRESENT: atraumatic, normocephalic Eye exam: PRESENT: conjunctiva pink, EOMI, PERRLA. ABSENT: scleral icterus Ear exam: PRESENT: normal external ear exam Mouth exam: PRESENT: moist, tongue midline Neck exam: PRESENT: full ROM. ABSENT: carotid bruit, JVD, lymphadenopathy, thyromegaly Respiratory exam: PRESENT: clear to auscultation john Cardiovascular exam: PRESENT: RRR. ABSENT: diastolic murmur, rubs, systolic murmur Pulses: PRESENT: normal dorsalis pedis pul, +2 pedal pulses bilateral Vascular exam: PRESENT: normal capillary refill GI/Abdominal exam: PRESENT: normal bowel sounds, soft. ABSENT: distended, guarding, mass, organolmegaly, rebound, tenderness Rectal exam: PRESENT: deferred Extremities exam: ABSENT: pedal edema Musculoskeletal exam: PRESENT: ambulatory Neurological exam: PRESENT: alert, awake, oriented to person, oriented to place , oriented to time, oriented to situation, CN II-XII grossly intact. ABSENT: motor sensory deficit Psychiatric exam: PRESENT: appropriate affect, normal mood. ABSENT: homicidal ideation, suicidal ideation Skin exam: PRESENT: dry, intact, warm. ABSENT: cyanosis, rash Results Laboratory Results: 12/09/17 05:14 12/10/17 04:42 12/10/17 04:42 Sodium 144.2 Potassium 4.5 Chloride 96 L Carbon Dioxide 36 H Anion Gap 12 BUN 33 H Creatinine 6.60 H Est GFR ( Amer) 10 L Est GFR (Non-Af Amer) 9 L Glucose 119 H Calcium 8.5 Impressions: Chest CT 12/06/17 00:00 IMPRESSION: Trace bilateral pleural effusions. Minimal right basilar atelectasis. Moderate left basilar airspace disease atelectasis versus pneumonia. No pneumothorax Recent sternotomy for CABG. Chest X-Ray 12/07/17 13:30 IMPRESSION: 1. Cardiomegaly without caro CHF. 2. Increased pleural effusions. 3. Increased opacification in the retrocardiac area. Cannot exclude left lower lobe pneumonia. Assessment & Plan - Diagnosis (1) Chest pain Qualifiers: Chest pain type: unspecified Qualified Code(s): R07.9 - Chest pain, unspecified Is this a current diagnosis for this admission?: Yes Plan: Chest wall pain discussed with the patient about the use the incentive spirometry because of the patient's pain patient started developing atelectasis and possible getting the pneumonia (2) ESRD (end stage renal disease) Is this a current diagnosis for this admission?: Yes Plan: Currently scheduled for hemodialysis today (3) Anemia in chronic kidney disease (CKD) Qualifiers: Chronic kidney disease stage: on chronic dialysis Qualified Code(s): N18.6 - End stage renal disease Is this a current diagnosis for this admission?: Yes (4) Coronary artery disease Qualifiers: Coronary Disease-Associated Artery/Lesion type: unspecified vessel or lesion type Is this a current diagnosis for this admission?: Yes Plan: Follow with the cardiology patients need a private cardiac rehab (5) Diabetes mellitus Qualifiers: Diabetes mellitus type: type 2 Diabetes mellitus meterman insulin use: with meterman use Diabetes mellitus complication status: with neurologic complications Diabetes mellitus complication detail: with polyneuropathy Qualified Code(s): E11.42 - Type 2 diabetes mellitus with diabetic polyneuropathy Is this a current diagnosis for this admission?: Yes (6) Gastroesophageal reflux disease Qualifiers: Esophagitis presence: without esophagitis Qualified Code(s): K21.9 - Gastro -esophageal reflux disease without esophagitis Is this a current diagnosis for this admission?: Yes (7) Hypertension Qualifiers: Hypertension type: essential hypertension Qualified Code(s): I10 - Essential (primary) hypertension Is this a current diagnosis for this admission?: Yes (8) Chronic pain syndrome Is this a current diagnosis for this admission?: Yes Plan: Follow with the pain management (9) Atrial fibrillation Qualifiers: Atrial fibrillation type: unspecified Qualified Code(s): I48.91 - Unspecified atrial fibrillation Is this a current diagnosis for this admission?: Yes Plan: Will start the patient on Eliquis already started in the past and why is not on the medications and stop the Coumadin - Time Time Spent with patient: 15-24 minutes Medications reviewed and adjusted accordingly: Yes Anticipated discharge: Other Within: Other - Inpatient Certification Medical Necessity: Need Close Monitoring Due to Risk of Patient Decompensation Post Hospital Care: D/C Tiler Documentation - Plan Summary Plan Summary: Patient is currently doing well Blood pressure is all stable up to start the Midrin Discussed with the patient and the and the bedside's Patients willing to try to go home tomorrow instead of going to the rehab facilities
[2017-12-10] MEDS: CEFTRIAXONE SODIUM 1,000 MG in DEXTROSE 5%-WATER 50 ML IV SCH (13:43)
[2017-12-10] MEDS: MIRTAZAPINE 15 MG TABLET PO SCH (21:48)
[2017-12-11 06:35] LABS: ANION GAP 12 (5-19); BLOOD UREA NITROGEN 44 mg/dL (7-20); CALCIUM 8.6 mg/dL (8.4-10.2); CARBON DIOXIDE 34 mmol/L (22-30); CHLORIDE 96 mmol/L (98-107); GLUCOSE 134 mg/dL (75-110); POTASSIUM 5.6 mmol/L (3.6-5.0); SODIUM 142.3 mmol/L (137-145)
[2017-12-11] MEDS: LANSOPRAZOLE 30 MG TAB.RAP.DR PO SCH (06:35)
[2017-12-11 07:56] LABS: HEMOGLOBIN 9.4 g/dL (13.5-17.0); MEAN CORPUSCULAR HEMOGLOBIN 31.8 pg (27.0-33.4); MEAN CORPUSCULAR HGB CONC 32.6 g/dL (32.0-36.0); MEAN CORPUSCULAR VOLUME 98 fl (80-97); PLATELET COUNT 268 10^3/uL (150-450); RED BLOOD COUNT 2.96 10^6/uL (4.35-5.55); RED CELL DISTRIBUTION WIDTH 26.2 % (11.5-14.0); WHITE BLOOD COUNT 7.5 10^3/uL (4.0-10.5)
[2017-12-11] MEDS: CALCIUM ACETATE 667 MG CAPSULE PO SCH ×3 (08:34→16:40)
[2017-12-11] MEDS: MIDODRINE HCL 5 MG TABLET PO SCH ×3 (08:34→16:40)
[2017-12-11] MEDS: FERROUS SULFATE 325 MG TABLET PO SCH ×3 (08:34→16:40)
[2017-12-11] MEDS ORDERED: SODIUM POLYSTYRENE SULFONATE 15 GM/60 ML PO ONE (10:00)
--- NOTE | 2017-12-11 10:20 | PDOC PROGRESS REPORT ---
Subjective Progress Note for:: 12/11/17 Subjective:: Patient is currently doing fair Patient's white count is normal and no fever no chills Patient's blood pressure is running in the lower end Reason For Visit: CHEST PAIN WITH RECENT BYPAS,ESRD ON HD,ANEMIA,HTN Physical Exam Vital Signs: Temp Pulse Resp BP Pulse Ox 98.5 F 61 16 106/57 L 93 12/11/17 04:00 12/11/17 04:00 12/11/17 04:00 12/11/17 04:00 12/11/17 04:00 Intake & Output 12/10/17 12/11/17 12/12/17 06:59 06:59 06:59 Intake Total 577 708 Output Total 1999 Balance -1423 708 Weight 83.5 kg General appearance: PRESENT: no acute distress, well-developed, well-nourished Head exam: PRESENT: atraumatic, normocephalic Eye exam: PRESENT: conjunctiva pink, EOMI, PERRLA. ABSENT: scleral icterus Ear exam: PRESENT: normal external ear exam Mouth exam: PRESENT: moist, tongue midline Neck exam: PRESENT: full ROM. ABSENT: carotid bruit, JVD, lymphadenopathy, thyromegaly Respiratory exam: PRESENT: clear to auscultation john Cardiovascular exam: PRESENT: RRR. ABSENT: diastolic murmur, rubs, systolic murmur Pulses: PRESENT: normal dorsalis pedis pul, +2 pedal pulses bilateral Vascular exam: PRESENT: normal capillary refill GI/Abdominal exam: PRESENT: normal bowel sounds, soft. ABSENT: distended, guarding, mass, organolmegaly, rebound, tenderness Rectal exam: PRESENT: deferred Extremities exam: ABSENT: pedal edema Additional comments: The left leg there is open wound because of the bypass surgery is present Neurological exam: PRESENT: alert, awake, oriented to person, oriented to place , oriented to time, oriented to situation, CN II-XII grossly intact. ABSENT: motor sensory deficit Psychiatric exam: PRESENT: appropriate affect, normal mood. ABSENT: homicidal ideation, suicidal ideation Skin exam: PRESENT: dry, intact, warm. ABSENT: cyanosis, rash Results Laboratory Results: 12/11/17 05:29 12/11/17 05:29 12/11/17 12/11/17 05:29 05:29 WBC 7.5 RBC 2.96 L Hgb 9.4 L Hct 29.0 L MCV 98 H MCH 31.8 MCHC 32.6 RDW 26.2 H Plt Count 268 Sodium 142.3 Potassium 5.6 H Chloride 96 L Carbon Dioxide 34 H Anion Gap 12 BUN 44 H Creatinine 8.29 H Est GFR ( Amer) 8 L Est GFR (Non-Af Amer) 7 L Glucose 134 H Calcium 8.6 Impressions: Chest CT 12/06/17 00:00 IMPRESSION: Trace bilateral pleural effusions. Minimal right basilar atelectasis. Moderate left basilar airspace disease atelectasis versus pneumonia. No pneumothorax Recent sternotomy for CABG. Chest X-Ray 12/07/17 13:30 IMPRESSION: 1. Cardiomegaly without caro CHF. 2. Increased pleural effusions. 3. Increased opacification in the retrocardiac area. Cannot exclude left lower lobe pneumonia. Assessment & Plan - Diagnosis (1) Chest pain Qualifiers: Chest pain type: unspecified Qualified Code(s): R07.9 - Chest pain, unspecified Is this a current diagnosis for this admission?: Yes Plan: Chest wall pain discussed with the patient about the use the incentive spirometry because of the patient's pain patient started developing atelectasis and possible getting the pneumonia (2) ESRD (end stage renal disease) Is this a current diagnosis for this admission?: Yes Plan: Currently scheduled for hemodialysis today (3) Anemia in chronic kidney disease (CKD) Qualifiers: Chronic kidney disease stage: on chronic dialysis Qualified Code(s): N18.6 - End stage renal disease Is this a current diagnosis for this admission?: Yes (4) Coronary artery disease Qualifiers: Coronary Disease-Associated Artery/Lesion type: unspecified vessel or lesion type Is this a current diagnosis for this admission?: Yes Plan: Follow with the cardiology patients need a private cardiac rehab (5) Diabetes mellitus Qualifiers: Diabetes mellitus type: type 2 Diabetes mellitus usp insulin use: with manager of customer billing use Diabetes mellitus complication status: with neurologic complications Diabetes mellitus complication detail: with polyneuropathy Qualified Code(s): E11.42 - Type 2 diabetes mellitus with diabetic polyneuropathy Is this a current diagnosis for this admission?: Yes (6) Gastroesophageal reflux disease Qualifiers: Esophagitis presence: without esophagitis Qualified Code(s): K21.9 - Gastro -esophageal reflux disease without esophagitis Is this a current diagnosis for this admission?: Yes (7) Hypertension Qualifiers: Hypertension type: essential hypertension Qualified Code(s): I10 - Essential (primary) hypertension Is this a current diagnosis for this admission?: Yes (8) Chronic pain syndrome Is this a current diagnosis for this admission?: Yes Plan: Follow with the pain management (9) Atrial fibrillation Qualifiers: Atrial fibrillation type: unspecified Qualified Code(s): I48.91 - Unspecified atrial fibrillation Is this a current diagnosis for this admission?: Yes Plan: Will start the patient on Eliquis already started in the past and why is not on the medications and stop the Coumadin - Time Time Spent with patient: 15-24 minutes Medications reviewed and adjusted accordingly: Yes Anticipated discharge: SNF Within: Other - Inpatient Certification Medical Necessity: Need Close Monitoring Due to Risk of Patient Decompensation, Need for IV Antibiotics Post Hospital Care: D/C Grain Thresher Documentation - Plan Summary Plan Summary: Give her Kayexalate 15 g because of elevated potassiums The surgery to look for the wound care The patient and the patient still very weak and multiple comorbidity probably best way to go to the rehab Asked her Dr. Angel to get the EKG for questionable first-degree AV block
[2017-12-11] MEDS: CLOPIDOGREL BISULFATE 75 MG TABLET PO SCH (11:57)
[2017-12-11] MEDS: ASPIRIN 81 MG TABLET, ENT COATED PO SCH (11:58)
[2017-12-11] MEDS: GABAPENTIN 100 MG CAPSULE PO SCH ×2 (11:59→21:06)
[2017-12-11] MEDS: APIXABAN 2.5 MG TABLET PO SCH ×2 (11:59→21:08)
[2017-12-11] MEDS: ATORVASTATIN CALCIUM 40 MG TABLET PO SCH (11:59)
[2017-12-11] MEDS: METOPROLOL SUCCINATE 25 MG TAB.SR.24H PO SCH (12:03)
--- NOTE | 2017-12-11 12:59 | PDOC CONSULTATION ---
History of Present Illness Admission Date/PCP: 12/05/17 09:08 FEI ZULETA MD Patient complains of: left leg non-healing wound History of Present Illness: CHAPITO LESLIE is a 62 year old male s/p CABG 1 month ago with left leg saphenous vein harvest. He is c/o non-healing of the left leg harvest wound. Past Medical History Cardiac Medical History: Reports: Congestive Heart Failure, Coronary Artery Disease Denies: Myocardial Infarction, Hypertension - SOMETIMES,NO MEDS Pulmonary Medical History: Denies: Asthma, Bronchitis, Chronic Obstructive Pulmonary Disease (COPD), Pneumonia Neurological Medical History: Reports: Other - He has been having involuntary tremors of unknown origin Denies: Seizures Endocrine Medical History: Reports: Diabetes Mellitus Type 2 Renal/ Medical History: Reports: End Stage Renal Disease - Dialysis dependent GI Medical History: Reports: Gastroesophageal Reflux Disease Denies: Hepatitis, Hiatal Hernia Musculoskeltal Medical History: Denies: Arthritis Psychiatric Medical History: Reports: Depression, General Anxiety Disorder Infectious Medical History: Reports: Hepatitis C Past Surgical History Past Surgical History: Reports: Cardiac Catheterization, Coronary Artery Bypass Graft - X3 vessel on October 26, 2017, Orthopedic Surgery - Right big toe amputation in 2014, left third and fourth toe amputation, Vascular Surgery, Other - Cervical laminectomy in 2012 Denies: Pacemaker Social History Smoking Status: Former Smoker Cigarettes Packs Per Day: 1.5 Number of Years Smokin Frequency of Alcohol Use: None Hx Recreational Drug Use: No Drugs: None Hx Prescription Drug Abuse: No Family History Family History: Reviewed & Not Pertinent Parental Family History Reviewed: No Children Family History Reviewed: No Sibling(s) Family History Reviewed.: No Medication/Allergy Home Medications: Nitroglycerin [Nitrostat 0.4 mg (1/150 Gr) Tabs 25/Bottle] 0.4 mg SL Q5MP PRN Acetaminophen [Tylenol 325 mg Tablet] 650 mg PO Q4HP PRN 12/04/17 Atorvastatin Calcium [Lipitor 40 mg Tablet] 40 mg PO DAILY 12/04/17 Benzonatate [Tessalon Perles 100 mg Capsule] 100 mg PO Q8HP PRN 12/04/17 Calcium Acetate [Phoslo 667 mg Capsule] 667 mg PO MEALS 12/04/17 Cephalexin [Cephalexin 250 MG Tablet] 250 mg PO Q12 MDD FOR 10DAYS 12/04/17 Clopidogrel Bisulfate [Plavix 75 mg Tablet] 75 mg PO DAILY 12/04/17 Epoetin Deo [Procrit] 10,000 unit IJ MOWEFR@1000 12/04/17 Famotidine [Pepcid 20 mg Tablet] 20 mg PO BIDP PRN 12/04/17 Gabapentin [Neurontin 100 mg Capsule] 100 mg PO Q12 12/04/17 Metoprolol Succinate [Toprol Xl 25 mg Tab.sr] 12.5 mg PO DAILY 12/04/17 Mirtazapine [Remeron 15 mg Tablet] 30 mg PO QHS 12/04/17 Oxycodone HCl [Oxy-Ir 5 mg Tablet] 5 mg PO Q8HP PRN 12/04/17 Pantoprazole Sodium [Protonix] 40 mg PO DAILY 12/04/17 Ramelteon [Rozerem] 8 mg PO QHS 12/04/17 Warfarin Sodium [Coumadin 2 mg Tablet] 2 mg PO QHS 12/04/17 Allergies/Adverse Reactions: vancomycin [Vancomycin] Adverse Reaction (Unknown, Verified 10/19/17 07:42) molina syndrome Physical Exam Vital Signs: Temp Pulse Resp BP Pulse Ox 98.5 F 61 16 106/57 L 93 12/11/17 04:00 12/11/17 04:00 12/11/17 04:00 12/11/17 04:00 12/11/17 04:00 Intake & Output 12/10/17 12/11/17 12/12/17 06:59 06:59 06:59 Intake Total 577 708 Output Total 1999 Balance -1423 708 Weight 83.5 kg General appearance: PRESENT: no acute distress Extremities exam: PRESENT: other - LLE: 3 cm long anterior leg wound located in the upper 1/3 with fibrinous material Results Laboratory Results: 12/11/17 05:29 12/11/17 05:29 12/11/17 12/11/17 05:29 05:29 WBC 7.5 RBC 2.96 L Hgb 9.4 L Hct 29.0 L MCV 98 H MCH 31.8 MCHC 32.6 RDW 26.2 H Plt Count 268 Sodium 142.3 Potassium 5.6 H Chloride 96 L Carbon Dioxide 34 H Anion Gap 12 BUN 44 H Creatinine 8.29 H Est GFR ( Amer) 8 L Est GFR (Non-Af Amer) 7 L Glucose 134 H Calcium 8.6 Impressions: Chest CT 12/06/17 00:00 IMPRESSION: Trace bilateral pleural effusions. Minimal right basilar atelectasis. Moderate left basilar airspace disease atelectasis versus pneumonia. No pneumothorax Recent sternotomy for CABG. Chest X-Ray 12/07/17 13:30 IMPRESSION: 1. Cardiomegaly without caro CHF. 2. Increased pleural effusions. 3. Increased opacification in the retrocardiac area. Cannot exclude left lower lobe pneumonia. Assessment & Plan - Plan Summary Plan Summary: A/ S/p CABG 1 month ago Non-healing Left leg wound after vein harvest, covered with fibrinous tissue P/ Debridment of left leg non-healing wound at bedside today BID NS wet-to-dry I will sign off; please call me with questions
--- NOTE | 2017-12-11 13:03 | Operative Report ---
Nonrecallable Operative Report DATE OF SURGERY: 12/11/17 PREOPERATIVE DIAGNOSIS: non healing 3 cm wound 1/3 upper third left anterior leg POSTOPERATIVE DIAGNOSIS: same OPERATION: debridment of non healing wound left 1/3 upper leg, anterior aspect SURGEON: SARI NARANJO ANESTHESIA: Other - none TISSUE REMOVED OR ALTERED: n/a COMPLICATIONS: none ESTIMATED BLOOD LOSS: none INTRAOPERATIVE FINDINGS: fibrinous material covering the wound bed PROCEDURE: see dictation
--- NOTE | 2017-12-11 13:40 | OPERATIVE REPORT E ---
Operative Report NAME: CHAPITO LESLIE : 1955 AGE: 62Y DATE OF SURGERY: ROOM: 331 PREOPERATIVE DIAGNOSES: NONHEALING WOUND TO LEFT LEG. POSTOPERATIVE DIAGNOSES: NONHEALING WOUND TO LEFT LEG. OPERATION: Debridement, left leg. SURGEON: SARI NARANJO M.D. DESCRIPTION OF PROCEDURE: The procedure was done at bedside. The left leg was prepped and draped in the usual fashion. With use of scissors the material covering the wound of the left leg, which was about 3-cm in length was sharply debrided down to subcutaneous tissue until bleeding tissue was obtained. Following this, the area was covered with a normal saline moist sponges, tape, Kerlix roll, and Sebastián bandage. The patient tolerated the procedure well, transferred to the recovery room in satisfactory condition. DICTATING PHYSICIAN: SARI NARANJO M.D. [id number] PHY#: [id number] ID: [id number] JOB#: [id number] ACCT: [id number] cc:SARI NARANJO M.D. > MTDD
[2017-12-11] MEDS: CEFTRIAXONE SODIUM 1,000 MG in DEXTROSE 5%-WATER 50 ML IV SCH (14:53)
--- NOTE | 2017-12-11 15:29 | EKG REPORT ---
SEVERITY:- ABNORMAL ECG - SINUS RHYTHM FIRST DEGREE AV BLOCK RIGHT BUNDLE BRANCH BLOCK : Confirmed by: Marco Antonio Padilla MD 11-Dec-2017 15:28:42
[2017-12-11] MEDS: HYDROMORPHONE HCL 2 MG TABLET PO PRN (21:06)
[2017-12-11] MEDS: MIRTAZAPINE 15 MG TABLET PO SCH (21:06)
[2017-12-12] MEDS: LANSOPRAZOLE 30 MG TAB.RAP.DR PO SCH (06:11)
[2017-12-12 06:46] LABS: ANION GAP 12 (5-19); BLOOD UREA NITROGEN 51 mg/dL (7-20); CALCIUM 8.3 mg/dL (8.4-10.2); CARBON DIOXIDE 31 mmol/L (22-30); CHLORIDE 99 mmol/L (98-107); GLUCOSE 117 mg/dL (75-110); POTASSIUM 5.2 mmol/L (3.6-5.0); SODIUM 141.8 mmol/L (137-145)
[2017-12-12] MEDS: MIDODRINE HCL 5 MG TABLET PO SCH ×3 (07:55→17:24)
[2017-12-12] MEDS: FERROUS SULFATE 325 MG TABLET PO SCH ×3 (07:55→17:24)
[2017-12-12] MEDS: CALCIUM ACETATE 667 MG CAPSULE PO SCH ×3 (07:55→17:25)
--- NOTE | 2017-12-12 08:23 | PDOC PROGRESS REPORT ---
Subjective Progress Note for:: 12/12/17 Subjective:: Patient is currently doing fair Patient's denied any chest pain denied any shortness of the breath Patient scheduled for the dialysis today Patient seen by general surgery in the suggest the dressing and debridement of the wound Reason For Visit: CHEST PAIN WITH RECENT BYPAS,ESRD ON HD,ANEMIA,HTN Physical Exam Vital Signs: Temp Pulse Resp BP Pulse Ox 98.5 F 73 18 110/47 L 92 12/12/17 07:37 12/12/17 07:40 12/12/17 07:37 12/12/17 07:37 12/12/17 07:40 Intake & Output 12/11/17 12/12/17 12/13/17 06:59 06:59 06:59 Intake Total 708 785 Output Total 0 Balance 708 785 Weight 84.7 kg General appearance: PRESENT: no acute distress, well-developed, well-nourished Head exam: PRESENT: atraumatic, normocephalic Eye exam: PRESENT: conjunctiva pink, EOMI, PERRLA. ABSENT: scleral icterus Ear exam: PRESENT: normal external ear exam Mouth exam: PRESENT: moist, tongue midline Neck exam: PRESENT: full ROM. ABSENT: carotid bruit, JVD, lymphadenopathy, thyromegaly Respiratory exam: PRESENT: clear to auscultation john Cardiovascular exam: PRESENT: RRR. ABSENT: diastolic murmur, rubs, systolic murmur Pulses: PRESENT: normal dorsalis pedis pul, +2 pedal pulses bilateral Vascular exam: PRESENT: normal capillary refill GI/Abdominal exam: PRESENT: normal bowel sounds, soft. ABSENT: distended, guarding, mass, organolmegaly, rebound, tenderness Rectal exam: PRESENT: deferred Extremities exam: ABSENT: pedal edema Additional comments: Left side of the leg the wound dressing is intact was debrided yesterday by surgery Neurological exam: PRESENT: alert, awake, oriented to person, oriented to place , oriented to time, oriented to situation, CN II-XII grossly intact. ABSENT: motor sensory deficit Psychiatric exam: PRESENT: appropriate affect, normal mood. ABSENT: homicidal ideation, suicidal ideation Skin exam: PRESENT: dry, intact, warm. ABSENT: cyanosis, rash Results Laboratory Results: 12/11/17 05:29 12/12/17 05:28 12/11/17 12/12/17 05:29 05:28 WBC 7.5 RBC 2.96 L Hgb 9.4 L Hct 29.0 L MCV 98 H MCH 31.8 MCHC 32.6 RDW 26.2 H Plt Count 268 Sodium 141.8 Potassium 5.2 H Chloride 99 Carbon Dioxide 31 H Anion Gap 12 BUN 51 H Creatinine 9.19 H Est GFR ( Amer) 7 L Est GFR (Non-Af Amer) 6 L Glucose 117 H Calcium 8.3 L Impressions: Chest CT 12/06/17 00:00 IMPRESSION: Trace bilateral pleural effusions. Minimal right basilar atelectasis. Moderate left basilar airspace disease atelectasis versus pneumonia. No pneumothorax Recent sternotomy for CABG. Chest X-Ray 12/07/17 13:30 IMPRESSION: 1. Cardiomegaly without caro CHF. 2. Increased pleural effusions. 3. Increased opacification in the retrocardiac area. Cannot exclude left lower lobe pneumonia. Assessment & Plan - Diagnosis (1) Chest pain Qualifiers: Chest pain type: unspecified Qualified Code(s): R07.9 - Chest pain, unspecified Is this a current diagnosis for this admission?: Yes Plan: Chest wall pain discussed with the patient about the use the incentive spirometry because of the patient's pain patient started developing atelectasis and possible getting the pneumonia (2) ESRD (end stage renal disease) Is this a current diagnosis for this admission?: Yes Plan: Currently scheduled for hemodialysis today (3) Anemia in chronic kidney disease (CKD) Qualifiers: Chronic kidney disease stage: on chronic dialysis Qualified Code(s): N18.6 - End stage renal disease Is this a current diagnosis for this admission?: Yes (4) Coronary artery disease Qualifiers: Coronary Disease-Associated Artery/Lesion type: unspecified vessel or lesion type Is this a current diagnosis for this admission?: Yes Plan: Follow with the cardiology patients need a private cardiac rehab (5) Diabetes mellitus Qualifiers: Diabetes mellitus type: type 2 Diabetes mellitus residential insulin use: with watermelon harvesting supervisor use Diabetes mellitus complication status: with neurologic complications Diabetes mellitus complication detail: with polyneuropathy Qualified Code(s): E11.42 - Type 2 diabetes mellitus with diabetic polyneuropathy Is this a current diagnosis for this admission?: Yes (6) Gastroesophageal reflux disease Qualifiers: Esophagitis presence: without esophagitis Qualified Code(s): K21.9 - Gastro -esophageal reflux disease without esophagitis Is this a current diagnosis for this admission?: Yes (7) Hypertension Qualifiers: Hypertension type: essential hypertension Qualified Code(s): I10 - Essential (primary) hypertension Is this a current diagnosis for this admission?: Yes (8) Chronic pain syndrome Is this a current diagnosis for this admission?: Yes Plan: Follow with the pain management (9) Atrial fibrillation Qualifiers: Atrial fibrillation type: unspecified Qualified Code(s): I48.91 - Unspecified atrial fibrillation Is this a current diagnosis for this admission?: Yes Plan: Will start the patient on Eliquis already started in the past and why is not on the medications and stop the Coumadin - Time Time Spent with patient: 15-24 minutes Medications reviewed and adjusted accordingly: Yes Anticipated discharge: SNF Within: Other - Inpatient Certification Medical Necessity: Need Close Monitoring Due to Risk of Patient Decompensation, Need for IV Antibiotics Post Hospital Care: D/C Digital Media Designer Documentation - Plan Summary Plan Summary: Patient scheduled for the hemodialysis and after dialysis we will repeat the chest x-ray
--- NOTE | 2017-12-12 09:09 | CONSULTATION REPORT E ---
Consultation Report NAME: CHAPITO LESLIE : 1955 AGE: 62Y DATE: 12/12/2017 331 A TO: WALLACE SMITH FROM: FEI ZULETA M.D. Requesting Physician CHIEF COMPLAINT: Chest pain. HISTORY OF PRESENT ILLNESS: We are consulted for this patient, who is a 62-year-old male presenting with chest pain. It is noted that he previously had a coronary artery bypass about 6 weeks ago. Note, the patient has been seen in our clinic for pain management of chronic back pain earlier this year and was stable overall at that time. The patient does have an ongoing history of end-stage renal disease, currently on dialysis, along with type 2 diabetes. The patient has been admitted for ongoing chest pain, which is believed to be chest wall pain at this time. He states that the pain is more of a pressure, stabbing chest pain and is usually worse with any type of cough, deep breathing, increased with any type of Valsalva maneuvers. He denies any numbness, tingling, paresthesia of the upper extremities or pain radiation at this time. The pain medication that he is currently taking is not effective. The 5 mg Percocet was only giving him about 30% to 60% relief. When he was taking 10, he tended to fall asleep. He would sleep for a few hours and then wakes up with pain again. PAST MEDICAL HISTORY: Significant for: 1. Coronary artery disease. 2. End-stage renal disease, currently on dialysis. 3. Type 2 diabetes. 4. Gastroesophageal reflux disease. PAST SURGICAL HISTORY: Significant for: 1. Cardiac catheterization. 2. Coronary artery bypass graft. 3. Orthopedic surgery of the right big toe that was amputated in 2014. 4. Left third and fourth toe amputations. 5. Vascular surgery. 7. Cervical laminectomy in 2012. SOCIAL HISTORY: The patient does admit to history of smoking. He smoked 1-1/2 packs per day for 20 years. Denies any recreational drug use or alcohol consumption at this time. FAMILY HISTORY: As per chart. MEDICATIONS: As per chart. 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 REVIEW OF SYSTEMS: EYES: Denies any blurry vision or changes in visual field. EARS: Denies any changes or loss of hearing. HEAD: Denies any headaches. NOSE: Denies epistaxis or complications with bleeding. THROAT: Denies any swallowing or sore throat complications at this time. RESPIRATORY: Denies any cough, hemoptysis, problems with breathing. CHEST: Complains of chest wall pain, worse with deep inhalation. GASTROINTESTINAL: No abdominal pain, constipation or diarrhea. MUSCULOSKELETAL: Denies any joint swelling. Pain with range of motion. SKIN: Denies any rashes or lesions. NEUROLOGICAL: Denies any abnormal gait, focal weakness, dizziness, nausea, vomiting, or syncope. PSYCHIATRIC: Denies any anxiety, depression, homicidal or suicidal ideation. ENDOCRINE: Denies any heat or intolerance. HEMATOLOGIC: Denies any bleeding, bruising, or *------*. PHYSICAL EXAMINATION: GENERAL APPEARANCE: The patient is sitting in a chair, attempting to eat dinner. He is well-developed, no severe discomfort or pain at this time. HEAD: Normocephalic. No trauma noted. EYES: PERRLA. EOMI. EARS: Appearing to be normal. MOUTH: No oral lesions, masses, moist mucosa. Tongue protrudes in the midline. NECK: Full range of motion. Trachea midline. No goiters, masses, lesions. CHEST WALL: Tenderness anteriorly. Chest wall incision running the length of the sternum from recent coronary artery bypass graft. LUNGS: Clear to auscultation bilaterally. CARDIOVASCULAR: Regular rate and rhythm. Positive S1 and S2 auscultated on exam. EXTREMITIES: Mild erythema of the left lower extremity secondary to vein removal for coronary artery bypass graft, bandaged with Tegaderm. Some edema noted around the site. Some minor tenderness to palpation. Pulses present, normal dorsalis pedis and pedal pulses on exam. NEUROLOGICAL: The patient is alert, awake and oriented x3. Cranial nerves 2-12 appear intact grossly. No motor or sensory deficits at this time. PSYCHIATRIC: Patient is in engaging mood. There is no evidence of depression or anxiety. ASSESSMENT AND PLAN: 1. CHEST PAIN. The chest pain seems to be more of a chest wall pain secondary to recent coronary artery bypass graft incision site. In regards to his pain, I would recommend we hold the Percocet for now as it seems to be less effective at the 5 mg dosing and having sedation at the 10 mg dosing. We will trial on Dilaudid 2 mg by mouth every 8 hours as needed and monitor for his pain relief without as much sedation. I also want to monitor his pain in waking hours in regards to relief. 2. END-STAGE RENAL DISEASE ON DIALYSIS. We will be mindful of his medication administration in regard to his dialysis and his pain relief and other medications changes in regards to the effect to kidneys. Note, he is due to transfer to a [facility] nursing facility from what I am being told probably within the next 24 hours. If there is no relief, we recommend someone contact us and we may consider stopping the Dilaudid and return to the Percocet but at 7.5 mg dosing and monitor. Recommend also he continue to follow up with cardiology to rule out any other complications or complaints. DICTATING PHYSICIAN: WALLACE SMITH [id number] PHY#: [id number] ID: [id number] JOB#: [id number] ACCT: [id number] cc:WALLACE SMITH >
[2017-12-12] MEDS: ATORVASTATIN CALCIUM 40 MG TABLET PO SCH (09:22)
[2017-12-12] MEDS: CLOPIDOGREL BISULFATE 75 MG TABLET PO SCH (09:22)
[2017-12-12] MEDS: APIXABAN 2.5 MG TABLET PO SCH ×2 (09:22→22:51)
[2017-12-12] MEDS: GABAPENTIN 100 MG CAPSULE PO SCH ×2 (09:22→22:51)
[2017-12-12] MEDS: ASPIRIN 81 MG TABLET, ENT COATED PO SCH (09:22)
[2017-12-12] MEDS ORDERED: EPOETIN ALFA 10,000 UNIT in SYRINGE, DISPOSABLE, 1 EACH IV PRN (12:30)
[2017-12-12] MEDS ORDERED: FAMOTIDINE 20 MG TABLET PO PRN (12:38)
[2017-12-12] MEDS: HYDROMORPHONE HCL 2 MG TABLET PO PRN (13:49)
[2017-12-12] MEDS: CEFTRIAXONE SODIUM 1,000 MG in DEXTROSE 5%-WATER 50 ML IV SCH (13:50)
--- NOTE | 2017-12-12 18:19 | RADIOLOGY REPORT (SQ) ---
EXAM DESCRIPTION: CHEST 2 VIEWS COMPLETED DATE/TIME: 12/12/2017 5:42 pm REASON FOR STUDY: chest pain COMPARISON: 11/13/2016 EXAM PARAMETERS: NUMBER OF VIEWS: two views TECHNIQUE: Digital Frontal and Lateral radiographic views of the chest acquired. RADIATION DOSE: NA LIMITATIONS: none FINDINGS: LUNGS AND PLEURA: Bilateral pleural effusions left greater than right. Basilar opacities. MEDIASTINUM AND HILAR STRUCTURES: No masses or contour abnormalities. HEART AND VASCULAR STRUCTURES: CABG hardware. Heart not enlarged. BONES: No acute findings. HARDWARE: Sternal wires. OTHER: No other significant finding. IMPRESSION: Interval CABG. Bilateral pleural effusions and basilar opacities. TECHNICAL DOCUMENTATION: JOB ID: [id number] [employer]- All Rights Reserved Reading location - IP/workstation name: [email or web address]
--- NOTE | 2017-12-12 20:24 | EKG REPORT ---
SEVERITY:- ABNORMAL ECG - SINUS RHYTHM MULTIFORM VENTRICULAR PREMATURE COMPLEXES FIRST DEGREE AV BLOCK RIGHT BUNDLE BRANCH BLOCK : Confirmed by: Shraddha Angel MD 12-Dec-2017 20:24:12
--- NOTE | 2017-12-12 21:42 | PDOC PROGRESS REPORT ---
Subjective Progress Note for:: 12/12/17 Subjective:: I saw the patient during dialysis at around 12:15 noontime today. He was tolerating dialysis without any complaints. He continues to have this right- sided chest pains. He still has some shortness of breath. Blood pressure has been labile at times. He said he is trying to walk in the hallways and is awaiting for rehab placement. Reason For Visit: CHEST PAIN WITH RECENT BYPAS,ESRD ON HD,ANEMIA,HTN Physical Exam Vital Signs: Temp Pulse Resp BP Pulse Ox 99.0 F 67 16 109/48 L 81 L 12/12/17 20:14 12/12/17 20:14 12/12/17 20:14 12/12/17 20:14 12/12/17 20:14 Intake & Output 12/11/17 12/12/17 12/13/17 06:59 06:59 06:59 Intake Total 708 785 474 Output Total 0 3200 Balance 708 785 -2726 Weight 84.7 kg Vitals during dialysis: Blood pressure 122/63, heart rate of 64, blood flow rate of 400 mL/min and dialysate flow rate of 600/min. Exam: General appearance: PRESENT: no acute distress, cooperative, well-developed, well-nourished Head exam: PRESENT: atraumatic, normocephalic Eye exam: PRESENT: conjunctiva pale, PERRLA. ABSENT: scleral icterus Neck exam: ABSENT: JVD Respiratory exam: PRESENT: Normal breath sounds. ABSENT: crackles, rales, rhonchi, unlabored, wheezes Cardiovascular exam: PRESENT: Regular rate rhythm -+S1, +S2. ABSENT: diastolic murmur, systolic murmur GI/Abdominal exam: PRESENT: normal bowel sounds, soft. ABSENT: guarding, mass, tenderness Extremities exam: ABSENT: No edema Neurological exam: PRESENT: alert, awake, oriented to person, place and time. Skin exam: PRESENT: dry, warm, Cardiovascular exam: PRESENT: +S1, +S2 Results Laboratory Results: 12/11/17 05:29 12/12/17 05:28 12/12/17 05:28 Sodium 141.8 Potassium 5.2 H Chloride 99 Carbon Dioxide 31 H Anion Gap 12 BUN 51 H Creatinine 9.19 H Est GFR ( Amer) 7 L Est GFR (Non-Af Amer) 6 L Glucose 117 H Calcium 8.3 L Impressions: Chest CT 12/06/17 00:00 IMPRESSION: Trace bilateral pleural effusions. Minimal right basilar atelectasis. Moderate left basilar airspace disease atelectasis versus pneumonia. No pneumothorax Recent sternotomy for CABG. Chest X-Ray 12/12/17 00:00 IMPRESSION: Interval CABG. Bilateral pleural effusions and basilar opacities. Assessment & Plan - Diagnosis (1) ESRD (end stage renal disease) Is this a current diagnosis for this admission?: Yes Plan: We did dialysis today for 3 hours, using the patient's AV fistula, with 2 potassium bath, blood flow rate of 400 mL per minute, dialysate flow rate of 600 mL per minute, ultrafiltration 3 L as tolerated, no heparin and Procrit with 10,000 units during dialysis intravenously. Patient was monitored throughout dialysis treatment and did not have any issues. (2) Chest wall pain following surgery Is this a current diagnosis for this admission?: Yes (3) Anemia in chronic kidney disease (CKD) Qualifiers: Chronic kidney disease stage: on chronic dialysis Qualified Code(s): N18.6 - End stage renal disease Is this a current diagnosis for this admission?: Yes Plan: Procrit given today and we will be continued to be given as needed during dialysis treatment. (4) Leg wound, left Is this a current diagnosis for this admission?: Yes Plan: Followed by surgery. (5) Coronary artery disease Qualifiers: Coronary Disease-Associated Artery/Lesion type: unspecified vessel or lesion type Is this a current diagnosis for this admission?: Yes (6) Diabetes mellitus Qualifiers: Diabetes mellitus type: type 2 Diabetes mellitus long-term insulin use: with computer terminal operator use Diabetes mellitus complication status: with neurologic complications Diabetes mellitus complication detail: with polyneuropathy Qualified Code(s): E11.42 - Type 2 diabetes mellitus with diabetic polyneuropathy Is this a current diagnosis for this admission?: Yes (7) Hypertension Qualifiers: Hypertension type: essential hypertension Qualified Code(s): I10 - Essential (primary) hypertension Is this a current diagnosis for this admission?: Yes - Time Time with patient: 15-25 minutes
[2017-12-12] MEDS: MIRTAZAPINE 15 MG TABLET PO SCH (22:50)
[2017-12-13] MEDS: HYDROMORPHONE HCL 2 MG TABLET PO PRN (03:08)
[2017-12-13] MEDS: ACETAMINOPHEN 325 MG TABLET PO PRN (04:21)
[2017-12-13] MEDS: LANSOPRAZOLE 30 MG TAB.RAP.DR PO SCH (06:11)
[2017-12-13] MEDS: CALCIUM ACETATE 667 MG CAPSULE PO SCH ×3 (08:12→16:57)
[2017-12-13] MEDS: MIDODRINE HCL 5 MG TABLET PO SCH ×3 (08:12→16:56)
[2017-12-13] MEDS: FERROUS SULFATE 325 MG TABLET PO SCH ×3 (08:12→16:56)
[2017-12-13] MEDS: APIXABAN 2.5 MG TABLET PO SCH ×2 (09:30→22:02)
[2017-12-13] MEDS: CLOPIDOGREL BISULFATE 75 MG TABLET PO SCH (09:30)
[2017-12-13] MEDS: ASPIRIN 81 MG TABLET, ENT COATED PO SCH (09:30)
[2017-12-13] MEDS: GABAPENTIN 100 MG CAPSULE PO SCH ×2 (09:30→22:03)
[2017-12-13] MEDS: ATORVASTATIN CALCIUM 40 MG TABLET PO SCH (09:30)
--- NOTE | 2017-12-13 12:36 | PDOC PROGRESS REPORT ---
Subjective Progress Note for:: 12/13/17 Subjective:: Patient is currently doing fair Patient's denied any chest pain denied any shortness of the breath Patient scheduled for the dialysis today Patient seen by general surgery in the suggest the dressing and debridement of the wound Reason For Visit: CHEST PAIN WITH RECENT BYPAS,ESRD ON HD,ANEMIA,HTN Physical Exam Vital Signs: Temp Pulse Resp BP Pulse Ox 98.9 F 74 16 105/53 L 91 L 12/13/17 11:55 12/13/17 11:55 12/13/17 11:55 12/13/17 11:55 12/13/17 11:55 Intake & Output 12/12/17 12/13/17 12/14/17 06:59 06:59 06:59 Intake Total 785 911 118 Output Total 0 3200 Balance 785 -2289 118 Weight 84.7 kg 82.7 kg General appearance: PRESENT: no acute distress, well-developed, well-nourished Head exam: PRESENT: atraumatic, normocephalic Eye exam: PRESENT: conjunctiva pink, EOMI, PERRLA. ABSENT: scleral icterus Ear exam: PRESENT: normal external ear exam Mouth exam: PRESENT: moist, tongue midline Neck exam: PRESENT: full ROM. ABSENT: carotid bruit, JVD, lymphadenopathy, thyromegaly Respiratory exam: PRESENT: clear to auscultation john Cardiovascular exam: PRESENT: RRR. ABSENT: diastolic murmur, rubs, systolic murmur Pulses: PRESENT: normal dorsalis pedis pul, +2 pedal pulses bilateral Vascular exam: PRESENT: normal capillary refill GI/Abdominal exam: PRESENT: normal bowel sounds, soft. ABSENT: distended, guarding, mass, organolmegaly, rebound, tenderness Rectal exam: PRESENT: deferred Extremities exam: ABSENT: pedal edema Musculoskeletal exam: PRESENT: ambulatory Neurological exam: PRESENT: alert, awake, oriented to person, oriented to place , oriented to time, oriented to situation, CN II-XII grossly intact. ABSENT: motor sensory deficit Psychiatric exam: PRESENT: appropriate affect, normal mood. ABSENT: homicidal ideation, suicidal ideation Skin exam: PRESENT: dry, intact, warm. ABSENT: cyanosis, rash Results Laboratory Results: 12/11/17 05:29 12/12/17 05:28 12/08/17 09:28 Blood Blood Culture - Final NO GROWTH IN 5 DAYS 12/08/17 08:48 Blood Blood Culture - Final NO GROWTH IN 5 DAYS Impressions: Chest CT 12/06/17 00:00 IMPRESSION: Trace bilateral pleural effusions. Minimal right basilar atelectasis. Moderate left basilar airspace disease atelectasis versus pneumonia. No pneumothorax Recent sternotomy for CABG. Chest X-Ray 12/12/17 00:00 IMPRESSION: Interval CABG. Bilateral pleural effusions and basilar opacities. Assessment & Plan - Diagnosis (1) Chest pain Qualifiers: Chest pain type: unspecified Qualified Code(s): R07.9 - Chest pain, unspecified Is this a current diagnosis for this admission?: Yes Plan: Chest wall pain discussed with the patient about the use the incentive spirometry because of the patient's pain patient started developing atelectasis and possible getting the pneumonia (2) ESRD (end stage renal disease) Is this a current diagnosis for this admission?: Yes Plan: Currently scheduled for hemodialysis today (3) Anemia in chronic kidney disease (CKD) Qualifiers: Chronic kidney disease stage: on chronic dialysis Qualified Code(s): N18.6 - End stage renal disease Is this a current diagnosis for this admission?: Yes (4) Coronary artery disease Qualifiers: Coronary Disease-Associated Artery/Lesion type: unspecified vessel or lesion type Is this a current diagnosis for this admission?: Yes Plan: Follow with the cardiology patients need a private cardiac rehab (5) Diabetes mellitus Qualifiers: Diabetes mellitus type: type 2 Diabetes mellitus mcc insulin use: with moss bleacher use Diabetes mellitus complication status: with neurologic complications Diabetes mellitus complication detail: with polyneuropathy Qualified Code(s): E11.42 - Type 2 diabetes mellitus with diabetic polyneuropathy Is this a current diagnosis for this admission?: Yes (6) Gastroesophageal reflux disease Qualifiers: Esophagitis presence: without esophagitis Qualified Code(s): K21.9 - Gastro -esophageal reflux disease without esophagitis Is this a current diagnosis for this admission?: Yes (7) Hypertension Qualifiers: Hypertension type: essential hypertension Qualified Code(s): I10 - Essential (primary) hypertension Is this a current diagnosis for this admission?: Yes (8) Chronic pain syndrome Is this a current diagnosis for this admission?: Yes Plan: Follow with the pain management (9) Atrial fibrillation Qualifiers: Atrial fibrillation type: unspecified Qualified Code(s): I48.91 - Unspecified atrial fibrillation Is this a current diagnosis for this admission?: Yes Plan: Will start the patient on Eliquis already started in the past and why is not on the medications and stop the Coumadin - Time Time Spent with patient: 15-24 minutes Medications reviewed and adjusted accordingly: Yes Anticipated discharge: SNF Within: Other - Inpatient Certification Medical Necessity: Need Close Monitoring Due to Risk of Patient Decompensation Post Hospital Care: D/C Vp Corporate Development Documentation - Plan Summary Plan Summary: Will get the ultrasound of the chestSince the pleural effusion if is all stable patients may be discharged today with the nursing facilities when the bed is available
[2017-12-13] MEDS: CEFTRIAXONE SODIUM 1,000 MG in DEXTROSE 5%-WATER 50 ML IV SCH (13:11)
--- NOTE | 2017-12-13 15:50 | RADIOLOGY REPORT (SQ) ---
EXAM DESCRIPTION: U/S CHEST COMPLETED DATE/TIME: 12/13/2017 3:41 pm REASON FOR STUDY: pleural effusion COMPARISON: CT chest 12/06/2017 Chest films 12/07/2017, 12/12/2017 TECHNIQUE: Ultrasound of the right and left chest was performed to quantify pleural effusions. LIMITATIONS: None. FINDINGS: On the right side, a small to moderate size subpulmonic pleural effusion is present with s eptations. On the left side, trace pleural fluid is present. IMPRESSION: Small to moderate right subpulmonic pleural effusion with septations. TECHNICAL DOCUMENTATION: JOB ID: [id number] [employer]- All Rights Reserved Reading location - IP/workstation name: [email or web address]
[2017-12-13] MEDS: MIRTAZAPINE 15 MG TABLET PO SCH (22:03)
[2017-12-14] MEDS ORDERED: EPOETIN ALFA INJ 20000 UNIT/1 ML VIAL (RENAL) IV PRN (05:00)
[2017-12-14] MEDS ORDERED: EPOETIN ALFA 10,000 UNIT in SYRINGE, DISPOSABLE, 1 EACH IV PRN (05:00)
[2017-12-14] MEDS: LANSOPRAZOLE 30 MG TAB.RAP.DR PO SCH (05:54)
[2017-12-14 06:14] LABS: ANION GAP 12 (5-19); BLOOD UREA NITROGEN 40 mg/dL (7-20); CALCIUM 8.3 mg/dL (8.4-10.2); CARBON DIOXIDE 32 mmol/L (22-30); CHLORIDE 98 mmol/L (98-107); GLUCOSE 113 mg/dL (75-110); POTASSIUM 5.4 mmol/L (3.6-5.0); SODIUM 141.9 mmol/L (137-145)
[2017-12-14] MEDS: CALCIUM ACETATE 667 MG CAPSULE PO SCH ×3 (08:26→17:38)
[2017-12-14] MEDS: FERROUS SULFATE 325 MG TABLET PO SCH ×3 (08:26→17:38)
--- NOTE | 2017-12-14 09:21 | PDOC PROGRESS REPORT ---
Subjective Progress Note for:: 12/14/17 Subjective:: Patient is currently doing fair Since chest ultrasound suggests a right-sided moderate pleural effusions and as per discussed with Dr. Rod scheduled for the possible chest tube were thoracocentesis Discussed with the Dr. Elizondo is okay to use a CT angiogram tomorrow Patient's otherwise denied any chest pain denied any shortness of the buttocks the patient still hypoxic when the patient's moving Reason For Visit: CHEST PAIN WITH RECENT BYPAS,ESRD ON HD,ANEMIA,HTN Physical Exam Vital Signs: Temp Pulse Resp BP Pulse Ox 98.5 F 59 L 17 149/59 H 91 L 12/14/17 07:19 12/14/17 07:19 12/14/17 07:19 12/14/17 07:19 12/14/17 07:19 Intake & Output 12/13/17 12/14/17 12/15/17 06:59 06:59 06:59 Intake Total 911 1303 Output Total 3200 Balance -2289 1303 Weight 82.7 kg 85.4 kg General appearance: PRESENT: no acute distress, well-developed, well-nourished Head exam: PRESENT: atraumatic, normocephalic Eye exam: PRESENT: conjunctiva pink, EOMI, PERRLA. ABSENT: scleral icterus Ear exam: PRESENT: normal external ear exam Mouth exam: PRESENT: moist, tongue midline Neck exam: PRESENT: full ROM. ABSENT: carotid bruit, JVD, lymphadenopathy, thyromegaly Respiratory exam: PRESENT: clear to auscultation john Cardiovascular exam: PRESENT: RRR. ABSENT: diastolic murmur, rubs, systolic murmur Pulses: PRESENT: normal dorsalis pedis pul, +2 pedal pulses bilateral Vascular exam: PRESENT: normal capillary refill GI/Abdominal exam: PRESENT: normal bowel sounds, soft. ABSENT: distended, guarding, mass, organolmegaly, rebound, tenderness Rectal exam: PRESENT: deferred Extremities exam: ABSENT: pedal edema Musculoskeletal exam: PRESENT: ambulatory Neurological exam: PRESENT: alert, awake, oriented to person, oriented to place , oriented to time, oriented to situation, CN II-XII grossly intact. ABSENT: motor sensory deficit Psychiatric exam: PRESENT: appropriate affect, normal mood. ABSENT: homicidal ideation, suicidal ideation Skin exam: PRESENT: dry, intact, warm. ABSENT: cyanosis, rash Results Laboratory Results: 12/11/17 05:29 12/14/17 05:07 12/14/17 05:07 Sodium 141.9 Potassium 5.4 H Chloride 98 Carbon Dioxide 32 H Anion Gap 12 BUN 40 H Creatinine 8.49 H Est GFR ( Amer) 8 L Est GFR (Non-Af Amer) 6 L Glucose 113 H Calcium 8.3 L 12/08/17 09:28 Blood Blood Culture - Final NO GROWTH IN 5 DAYS 12/08/17 08:48 Blood Blood Culture - Final NO GROWTH IN 5 DAYS Impressions: Chest CT 12/06/17 00:00 IMPRESSION: Trace bilateral pleural effusions. Minimal right basilar atelectasis. Moderate left basilar airspace disease atelectasis versus pneumonia. No pneumothorax Recent sternotomy for CABG. Chest X-Ray 12/12/17 00:00 IMPRESSION: Interval CABG. Bilateral pleural effusions and basilar opacities. Chest Ultrasound 12/13/17 00:00 IMPRESSION: Small to moderate right subpulmonic pleural effusion with septations. Assessment & Plan - Diagnosis (1) Chest pain Qualifiers: Chest pain type: unspecified Qualified Code(s): R07.9 - Chest pain, unspecified Is this a current diagnosis for this admission?: Yes Plan: Chest wall pain discussed with the patient about the use the incentive spirometry because of the patient's pain patient started developing atelectasis and possible getting the pneumonia (2) ESRD (end stage renal disease) Is this a current diagnosis for this admission?: Yes Plan: Currently scheduled for hemodialysis today (3) Anemia in chronic kidney disease (CKD) Qualifiers: Chronic kidney disease stage: on chronic dialysis Qualified Code(s): N18.6 - End stage renal disease Is this a current diagnosis for this admission?: Yes (4) Coronary artery disease Qualifiers: Coronary Disease-Associated Artery/Lesion type: unspecified vessel or lesion type Is this a current diagnosis for this admission?: Yes Plan: Follow with the cardiology patients need a private cardiac rehab (5) Diabetes mellitus Qualifiers: Diabetes mellitus type: type 2 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 use: with remote computer terminal operator use Diabetes mellitus complication status: with neurologic complications Diabetes mellitus complication detail: with polyneuropathy Qualified Code(s): E11.42 - Type 2 diabetes mellitus with diabetic polyneuropathy Is this a current diagnosis for this admission?: Yes (6) Gastroesophageal reflux disease Qualifiers: Esophagitis presence: without esophagitis Qualified Code(s): K21.9 - Gastro -esophageal reflux disease without esophagitis Is this a current diagnosis for this admission?: Yes (7) Hypertension Qualifiers: Hypertension type: essential hypertension Qualified Code(s): I10 - Essential (primary) hypertension Is this a current diagnosis for this admission?: Yes (8) Chronic pain syndrome Is this a current diagnosis for this admission?: Yes Plan: Follow with the pain management (9) Atrial fibrillation Qualifiers: Atrial fibrillation type: unspecified Qualified Code(s): I48.91 - Unspecified atrial fibrillation Is this a current diagnosis for this admission?: Yes (10) Pleural effusion Is this a current diagnosis for this admission?: Yes Plan: Currently hold the Eliquis start the patient on heparin this as per discussed with the nephrology and scheduled for thoracocentesis as per discussed with Dr. 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
[2017-12-14 10:07] LABS: HEMOGLOBIN 9.1 g/dL (13.5-17.0); MEAN CORPUSCULAR HEMOGLOBIN 31.8 pg (27.0-33.4); MEAN CORPUSCULAR HGB CONC 32.5 g/dL (32.0-36.0); MEAN CORPUSCULAR VOLUME 98 fl (80-97); PLATELET COUNT 297 10^3/uL (150-450); RED BLOOD COUNT 2.85 10^6/uL (4.35-5.55); RED CELL DISTRIBUTION WIDTH 26.5 % (11.5-14.0); WHITE BLOOD COUNT 6.5 10^3/uL (4.0-10.5)
[2017-12-14 12:12] LABS: TOTAL PROTEIN 7.8 g/dL (6.3-8.2)
[2017-12-14] MEDS: CLOPIDOGREL BISULFATE 75 MG TABLET PO SCH (13:46)
[2017-12-14] MEDS: APIXABAN 2.5 MG TABLET PO SCH (13:46)
[2017-12-14] MEDS: MIDODRINE HCL 5 MG TABLET PO SCH ×2 (14:58→15:16)
[2017-12-14] MEDS: HEPARIN SOD (PORCINE) 5,000 UNIT/ML 1 ML SYRINGE SUBCUT SCH ×2 (15:04→21:25)
[2017-12-14] MEDS: GABAPENTIN 100 MG CAPSULE PO SCH ×2 (15:04→21:26)
[2017-12-14] MEDS: ASPIRIN 81 MG TABLET, ENT COATED PO SCH (15:05)
[2017-12-14] MEDS: ATORVASTATIN CALCIUM 40 MG TABLET PO SCH (15:05)
--- NOTE | 2017-12-14 16:11 | RADIOLOGY REPORT (SQ) ---
EXAM DESCRIPTION: CHEST 2 VIEWS COMPLETED DATE/TIME: 12/14/2017 4:01 pm REASON FOR STUDY: Pleural effusion COMPARISON: 12/12/2017. EXAM PARAMETERS: NUMBER OF VIEWS: two views TECHNIQUE: Digital Frontal and Lateral radiographic views of the chest acquired. RADIATION DOSE: NA LIMITATIONS: none FINDINGS: LUNGS AND PLEURA: Bilateral pleural effusions. Bibasilar opacities consistent with atelec tasis or infiltrate. MEDIASTINUM AND HILAR STRUCTURES: No masses or contour abnormalities. HEART AND VASCULAR STRUCTURES: Persistent cardiomegaly with changes of CABG. Pulmonary vasculature i s normal. BONES: No acute findings. HARDWARE: None in the chest. OTHER: Moderate amount of fluid and food within the stomach. IMPRESSION: Status post CABG. Cardiomegaly. No significant change. TECHNICAL DOCUMENTATION: JOB ID: [id number] [employer]- All Rights Reserved Reading location - IP/workstation name: [email or web address]
--- NOTE | 2017-12-14 18:02 | PDOC PROGRESS REPORT ---
Subjective Progress Note for:: 12/14/17 Subjective:: I saw the patient is morning at the start of dialysis. Patient continues to be weak with occasional right-sided chest pain but no new complaints. A chest ultrasound was done which showed small to moderate pleural effusion with some septations. I also had a chance to talk to Dr. Baez this morning. Apparently the patient still gets short of breath on minimal exertion. Pulmonary is also on the case. Dr. Baez is considering possibility of thoracentesis per pulmonology recommendations. His anticoagulation Eliquis needs to be held before that. So for his dialysis this morning we tried to obtain as much ultrafiltration as we can to see if it will make a difference in his pleural effusion. Patient did tolerate dialysis and ultrafiltration this morning without any problems. Reason For Visit: CHEST PAIN WITH RECENT BYPAS,ESRD ON HD,ANEMIA,HTN Physical Exam Vital Signs: Temp Pulse Resp BP Pulse Ox 99.2 F 86 17 105/50 L 77 L 12/14/17 15:10 12/14/17 15:10 12/14/17 15:10 12/14/17 15:10 12/14/17 15:10 Intake & Output 12/13/17 12/14/17 12/15/17 06:59 06:59 06:59 Intake Total 911 1303 200 Output Total 3200 4800 Balance -2289 1303 -4600 Weight 82.7 kg 85.4 kg Vitals at the initiation of dialysis: Blood pressure 164/76, heart rate of 60, temperature 97.4, respiratory rate of 14, blood flow rate of 350 mL/min, dialysate flow rate of 600 mL/min. Exam: General appearance: PRESENT: no acute distress, cooperative, fairly-developed, fairly-nourished Head exam: PRESENT: atraumatic, normocephalic Eye exam: PRESENT: conjunctiva pale, PERRLA. ABSENT: scleral icterus Neck exam: ABSENT: JVD Respiratory exam: PRESENT: Diminished breath sounds. ABSENT: crackles, rales, rhonchi, unlabored, wheezes Cardiovascular exam: PRESENT: Regular rate rhythm -+S1, +S2. ABSENT: diastolic murmur, systolic murmur GI/Abdominal exam: PRESENT: normal bowel sounds, soft. ABSENT: guarding, mass, tenderness Extremities exam: ABSENT: No edema Neurological exam: PRESENT: alert, awake, oriented to person, place and time. Skin exam: PRESENT: dry, warm, Cardiovascular exam: PRESENT: +S1, +S2 Results Laboratory Results: 12/14/17 08:46 12/14/17 05:07 12/14/17 12/14/17 12/14/17 05:07 08:46 10:59 WBC 6.5 RBC 2.85 L Hgb 9.1 L Hct 28.0 L MCV 98 H MCH 31.8 MCHC 32.5 RDW 26.5 H Plt Count 297 Sodium 141.9 Potassium 5.4 H Chloride 98 Carbon Dioxide 32 H Anion Gap 12 BUN 40 H Creatinine 8.49 H Est GFR ( Amer) 8 L Est GFR (Non-Af Amer) 6 L Glucose 113 H Calcium 8.3 L Total Protein 7.8 Impressions: Chest CT 12/06/17 00:00 IMPRESSION: Trace bilateral pleural effusions. Minimal right basilar atelectasis. Moderate left basilar airspace disease atelectasis versus pneumonia. No pneumothorax Recent sternotomy for CABG. Chest Ultrasound 12/13/17 00:00 IMPRESSION: Small to moderate right subpulmonic pleural effusion with septations. Chest X-Ray 12/14/17 00:00 IMPRESSION: Status post CABG. Cardiomegaly. No significant change. Assessment & Plan - Diagnosis (1) ESRD (end stage renal disease) Is this a current diagnosis for this admission?: Yes Plan: We did dialysis today for 3 hours, using the patient's AV fistula, with 2 potassium bath, blood flow rate of 350 mL per minute, dialysate flow rate of 600 mL per minute, ultrafiltration 4-5 L as tolerated, no heparin and Procrit with 10,000 units during dialysis intravenously. Patient tolerated the procedure well without any problems. (2) Chest wall pain following surgery Is this a current diagnosis for this admission?: Yes (3) Anemia in chronic kidney disease (CKD) Qualifiers: Chronic kidney disease stage: on chronic dialysis Qualified Code(s): N18.6 - End stage renal disease Is this a current diagnosis for this admission?: Yes Plan: Procrit given today during dialysis treatment. (4) Pleural effusion Is this a current diagnosis for this admission?: Yes Plan: Small to moderate with septations associated with dyspnea on exertion. Per discussion with Dr. Beaz, if not better after dialysis today a thoracentesis might need to be done so the Eliquis will be held today and tomorrow. 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
[2017-12-14] MEDS: MIRTAZAPINE 15 MG TABLET PO SCH (21:25)
[2017-12-14] MEDS: HYDROMORPHONE HCL 2 MG TABLET PO PRN (21:30)
[2017-12-15] MEDS: HEPARIN SOD (PORCINE) 5,000 UNIT/ML 1 ML SYRINGE SUBCUT SCH ×3 (05:59→21:39)
[2017-12-15] MEDS: LANSOPRAZOLE 30 MG TAB.RAP.DR PO SCH (05:59)
[2017-12-15] MEDS: HYDROMORPHONE HCL 2 MG TABLET PO PRN ×2 (05:59→21:41)
[2017-12-15] MEDS: CALCIUM ACETATE 667 MG CAPSULE PO SCH ×3 (08:04→17:36)
[2017-12-15] MEDS: MIDODRINE HCL 5 MG TABLET PO SCH ×3 (08:04→17:37)
[2017-12-15] MEDS: FERROUS SULFATE 325 MG TABLET PO SCH ×3 (08:04→17:37)
[2017-12-15] MEDS: ACETAMINOPHEN 325 MG TABLET PO PRN (08:04)
--- NOTE | 2017-12-15 08:45 | PDOC PROGRESS REPORT ---
Subjective Progress Note for:: 12/15/17 Subjective:: Patient is currently doing well Denied any chest pain denied any shortness of the breath Patient's currently hold the Eliquis and Plavix and scheduled for the thoracocentesis tomorrow Scheduled the CT angiogram tomorrow and schedule the dialysis tomorrow Reason For Visit: CHEST PAIN WITH RECENT BYPAS,ESRD ON HD,ANEMIA,HTN Physical Exam Vital Signs: Temp Pulse Resp BP Pulse Ox 98.6 F 63 16 125/58 L 100 12/15/17 07:07 12/15/17 07:07 12/15/17 07:07 12/15/17 07:07 12/15/17 07:07 Intake & Output 12/14/17 12/15/17 12/16/17 06:59 06:59 06:59 Intake Total 1303 1206 Output Total 4800 Balance 1303 -3594 Weight 85.4 kg 82.4 kg General appearance: PRESENT: no acute distress, well-developed, well-nourished Head exam: PRESENT: atraumatic, normocephalic Eye exam: PRESENT: conjunctiva pink, EOMI, PERRLA. ABSENT: scleral icterus Ear exam: PRESENT: normal external ear exam Mouth exam: PRESENT: moist, tongue midline Neck exam: PRESENT: full ROM. ABSENT: carotid bruit, JVD, lymphadenopathy, thyromegaly Respiratory exam: PRESENT: clear to auscultation john Cardiovascular exam: PRESENT: RRR. ABSENT: diastolic murmur, rubs, systolic murmur Pulses: PRESENT: normal dorsalis pedis pul, +2 pedal pulses bilateral Vascular exam: PRESENT: normal capillary refill GI/Abdominal exam: PRESENT: normal bowel sounds, soft. ABSENT: distended, guarding, mass, organolmegaly, rebound, tenderness Rectal exam: PRESENT: deferred Extremities exam: ABSENT: pedal edema Musculoskeletal exam: PRESENT: ambulatory Neurological exam: PRESENT: alert, awake, oriented to person, oriented to place , oriented to time, oriented to situation, CN II-XII grossly intact. ABSENT: motor sensory deficit Psychiatric exam: PRESENT: appropriate affect, normal mood. ABSENT: homicidal ideation, suicidal ideation Skin exam: PRESENT: dry, intact, warm. ABSENT: cyanosis, rash Results Laboratory Results: 12/14/17 08:46 12/14/17 05:07 12/14/17 12/14/17 08:46 10:59 WBC 6.5 RBC 2.85 L Hgb 9.1 L Hct 28.0 L MCV 98 H MCH 31.8 MCHC 32.5 RDW 26.5 H Plt Count 297 Total Protein 7.8 Impressions: Chest CT 12/06/17 00:00 IMPRESSION: Trace bilateral pleural effusions. Minimal right basilar atelectasis. Moderate left basilar airspace disease atelectasis versus pneumonia. No pneumothorax Recent sternotomy for CABG. Chest Ultrasound 12/13/17 00:00 IMPRESSION: Small to moderate right subpulmonic pleural effusion with septations. Chest X-Ray 12/14/17 00:00 IMPRESSION: Status post CABG. Cardiomegaly. No significant change. Assessment & Plan - Diagnosis (1) Chest pain Qualifiers: Chest pain type: unspecified Qualified Code(s): R07.9 - Chest pain, unspecified Is this a current diagnosis for this admission?: Yes Plan: Chest wall pain discussed with the patient about the use the incentive spirometry because of the patient's pain patient started developing atelectasis and possible getting the pneumonia (2) ESRD (end stage renal disease) Is this a current diagnosis for this admission?: Yes Plan: Currently scheduled for hemodialysis today (3) Anemia in chronic kidney disease (CKD) Qualifiers: Chronic kidney disease stage: on chronic dialysis Qualified Code(s): N18.6 - End stage renal disease Is this a current diagnosis for this admission?: Yes (4) Coronary artery disease Qualifiers: Coronary Disease-Associated Artery/Lesion type: unspecified vessel or lesion type Is this a current diagnosis for this admission?: Yes (5) Diabetes mellitus Qualifiers: Diabetes mellitus type: type 2 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 insulin use: with mcc use Diabetes mellitus complication status: with neurologic complications Diabetes mellitus complication detail: with polyneuropathy Qualified Code(s): E11.42 - Type 2 diabetes mellitus with diabetic polyneuropathy Is this a current diagnosis for this admission?: Yes (6) Gastroesophageal reflux disease Qualifiers: Esophagitis presence: without esophagitis Qualified Code(s): K21.9 - Gastro -esophageal reflux disease without esophagitis Is this a current diagnosis for this admission?: Yes (7) Hypertension Qualifiers: Hypertension type: essential hypertension Qualified Code(s): I10 - Essential (primary) hypertension Is this a current diagnosis for this admission?: Yes (8) Chronic pain syndrome Is this a current diagnosis for this admission?: Yes Plan: Follow with the pain management (9) Atrial fibrillation Qualifiers: Atrial fibrillation type: unspecified Qualified Code(s): I48.91 - Unspecified atrial fibrillation Is this a current diagnosis for this admission?: Yes Plan: Will start the patient on Eliquis already started in the past and why is not on the medications and stop the Coumadin (10) Pleural effusion Is this a current diagnosis for this admission?: Yes Plan: This is scheduled for thoracocentesis tomorrow - Time Time Spent with patient: 15-24 minutes Medications reviewed and adjusted accordingly: Yes Anticipated discharge: SNF Within: Other - Inpatient Certification Medical Necessity: Need Close Monitoring Due to Risk of Patient Decompensation 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
[2017-12-15] MEDS: ASPIRIN 81 MG TABLET, ENT COATED PO SCH (10:48)
[2017-12-15] MEDS: ATORVASTATIN CALCIUM 40 MG TABLET PO SCH (10:48)
[2017-12-15] MEDS: GABAPENTIN 100 MG CAPSULE PO SCH ×2 (10:49→21:40)
--- NOTE | 2017-12-15 12:13 | PDOC CONSULTATION ---
Consultation Consult Date: 12/14/17 Attending physician:: FEI ZULETA Consult reason:: effusions History of Present Illness Admission Date/PCP: 12/05/17 09:08 FEI ZULETA MD History of Present Illness: CHAPITO LESLIE is a 62 year old male, presented to the emergency room with increasing shortness of breath has history of coronary artery disease and myocardial infarctions as well as chronic renal failure end-stage requiring hemodialysis denies that it affects his activities of daily living has occasional cough denies hemoptysis PPD was recently taken and was negative has no history of chronic lung disease as a child or adolescent he admits to exposure to passive smoke as a child as well as an adult he was very grave vague about his smoking history but apparently has not slowed smoked in the last 30 years while he was in [place] he smoked approximately 25 years after surgery in the [employer] 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 He has no pets and denies any recent travel admits to occasional tightness in his chest sleeps on 2 pillows he admits to PND nocturnal cough and intermittent episodes of edema he admits to snoring restless sleep , unrestful sleep and excessive daytime somnolence Past Medical History Cardiac Medical History: Reports: Congestive Heart Failure, Coronary Artery Disease Denies: Myocardial Infarction, Hypertension - SOMETIMES,NO MEDS Pulmonary Medical History: Denies: Asthma, Bronchitis, Chronic Obstructive Pulmonary Disease (COPD), Pneumonia Neurological Medical History: Reports: Other - He has been having involuntary tremors of unknown origin Denies: Seizures Endocrine Medical History: Reports: Diabetes Mellitus Type 2 Renal/ Medical History: Reports: End Stage Renal Disease - Dialysis dependent GI Medical History: Reports: Gastroesophageal Reflux Disease Denies: Hepatitis, Hiatal Hernia Musculoskeltal Medical History: Denies: Arthritis Skin Medical History: Denies: Psoriasis Psychiatric Medical History: Reports: Depression, General Anxiety Disorder Denies: Tobacco Dependency Traumatic Medical History: Denies: Traumatic Brain Injury Infectious Medical History: Reports: Hepatitis B, Hepatitis C Past Surgical History Past Surgical History: Reports: Cardiac Catheterization, Coronary Artery Bypass Graft - X3 vessel on October 26, 2017, Orthopedic Surgery - Right big toe amputation in 2014, left third and fourth toe amputation, Vascular Surgery, Other - Cervical laminectomy in 2012 Denies: Pacemaker Social History Information Source: Patient, Relative, [facility] Records Smoking Status: Former Smoker Cigarettes Packs Per Day: 1.5 Number of Years Smokin Passive smoke exposure as: Both Frequency of Alcohol Use: None Hx Recreational Drug Use: No Drugs: None Hx Prescription Drug Abuse: No Do you have pets?: No Have you had any respiratory illnesses as a child?: No Have you been exposed to any sick contacts recently?: No Have you had any recent respiratory illnesses?: No Have you travelled outside of [place] in the past 12 months?: No Family History Family History: CAD, Hypertension, Malignancy. denies: DM Parental Family History Reviewed: Yes Children Family History Reviewed: Yes Sibling(s) Family History Reviewed.: Yes Medication/Allergy Home Medications: Nitroglycerin [Nitrostat 0.4 mg (1/150 Gr) Tabs 25/Bottle] 0.4 mg SL Q5MP PRN Acetaminophen [Tylenol 325 mg Tablet] 650 mg PO Q4HP PRN 12/04/17 Atorvastatin Calcium [Lipitor 40 mg Tablet] 40 mg PO DAILY 12/04/17 Benzonatate [Tessalon Perles 100 mg Capsule] 100 mg PO Q8HP PRN 12/04/17 Calcium Acetate [Phoslo 667 mg Capsule] 667 mg PO MEALS 12/04/17 Cephalexin [Cephalexin 250 MG Tablet] 250 mg PO Q12 MDD FOR 10DAYS 12/04/17 Clopidogrel Bisulfate [Plavix 75 mg Tablet] 75 mg PO DAILY 12/04/17 Epoetin Deo [Procrit] 10,000 unit IJ MOWEFR@1000 12/04/17 Famotidine [Pepcid 20 mg Tablet] 20 mg PO BIDP PRN 12/04/17 Gabapentin [Neurontin 100 mg Capsule] 100 mg PO Q12 12/04/17 Metoprolol Succinate [Toprol Xl 25 mg Tab.sr] 12.5 mg PO DAILY 12/04/17 Mirtazapine [Remeron 15 mg Tablet] 30 mg PO QHS 12/04/17 Pantoprazole Sodium [Protonix] 40 mg PO DAILY 12/04/17 Ramelteon [Rozerem] 8 mg PO QHS 12/04/17 Apixaban [Eliquis 2.5 mg Tablet] 2.5 mg PO Q12 #60 tablet 12/12/17 Hydromorphone HCl [Dilaudid 2 mg Tablet] 2 mg PO Q8HP PRN #30 tablet 12/12/17 Midodrine HCl [Proamatine 5 mg Tablet] 2.5 mg PO TID@0800,1200,1600 #90 tablet 12/12/17 Allergies/Adverse Reactions: vancomycin [Vancomycin] Adverse Reaction (Unknown, Verified 10/19/17 07:42) molina syndrome Review of Systems Constitutional: ABSENT: chills, fever(s), night sweats Eyes: ABSENT: visual disturbances Ears: ABSENT: hearing changes Nose, Mouth, and Throat: ABSENT: mouth pain, sore throat Cardiovascular: PRESENT: chest pain, dyspnea on exertion, edema, orthropnea. ABSENT: palpitations Respiratory: PRESENT: cough, dyspnea. ABSENT: hemoptysis Gastrointestinal: ABSENT: abdominal pain, bloating, coffee ground emesis, dysphagia, hematemesis, hematochezia, melena, nausea, vomiting Genitourinary: ABSENT: dysuria, hematuria, nocturia Musculoskeletal: ABSENT: deformity, joint swelling Integumentary: ABSENT: pruritus, rash Neurological: PRESENT: memory loss. ABSENT: abnormal speech, frequent falls, lack of coordination Psychiatric: PRESENT: anxiety, depression. ABSENT: hallucinations, homidical ideation, suicidal ideation Endocrine: ABSENT: cold intolerance, heat intolerance Hematologic/Lymphatic: ABSENT: easy bruising Allergic/Immunologic: ABSENT: seasonal rhinorrhea Physical Exam Vital Signs: Temp Pulse Resp BP Pulse Ox 98.5 F 59 L 17 149/59 H 91 L 12/14/17 07:19 12/14/17 07:19 12/14/17 07:19 12/14/17 07:19 12/14/17 07:19 Intake & Output 12/13/17 12/14/17 12/15/17 06:59 06:59 06:59 Intake Total 911 1303 Output Total 3200 Balance -2289 1303 Weight 82.7 kg 85.4 kg General appearance: PRESENT: no acute distress, cooperative, well-developed, well-nourished Head exam: PRESENT: atraumatic, normocephalic Eye exam: PRESENT: conjunctiva pale, EOMI. ABSENT: nystagmus, periorbital swelling Mouth exam: PRESENT: dry mucosa, neck supple, tongue midline Neck exam: ABSENT: carotid bruit, JVD, lymphadenopathy, thyromegaly, tracheal deviation, tracheostomy Respiratory exam: PRESENT: decreased breath sounds, prolonged expiratory phas, rales, rhonchi, unlabored. ABSENT: retraction, stridor, tachypnea Cardiovascular exam: PRESENT: irregular rhythm, systolic murmur Pulses: PRESENT: normal radial pulses GI/Abdominal exam: PRESENT: normal bowel sounds, soft Extremities exam: ABSENT: calf tenderness, clubbing, joint swelling Musculoskeletal exam: PRESENT: ambulatory, deformity, dislocation Neurological exam: PRESENT: awake, oriented to person, oriented to place, oriented to time Focused psych exam: PRESENT: internal stimuli Skin exam: PRESENT: dry, warm Results Laboratory Results: 12/11/17 05:29 12/14/17 05:07 12/14/17 05:07 Sodium 141.9 Potassium 5.4 H Chloride 98 Carbon Dioxide 32 H Anion Gap 12 BUN 40 H Creatinine 8.49 H Est GFR ( Amer) 8 L Est GFR (Non-Af Amer) 6 L Glucose 113 H Calcium 8.3 L 12/08/17 09:28 Blood Blood Culture - Final NO GROWTH IN 5 DAYS 12/08/17 08:48 Blood Blood Culture - Final NO GROWTH IN 5 DAYS Impressions: Chest CT 12/06/17 00:00 IMPRESSION: Trace bilateral pleural effusions. Minimal right basilar atelectasis. Moderate left basilar airspace disease atelectasis versus pneumonia. No pneumothorax Recent sternotomy for CABG. Chest X-Ray 12/12/17 00:00 IMPRESSION: Interval CABG. Bilateral pleural effusions and basilar opacities. Chest Ultrasound 12/13/17 00:00 IMPRESSION: Small to moderate right subpulmonic pleural effusion with septations. Assessment & Plan - Diagnosis (1) Atrial fibrillation Qualifiers: Atrial fibrillation type: unspecified Qualified Code(s): I48.91 - Unspecified atrial fibrillation Is this a current diagnosis for this admission?: Yes Plan: Ventricular rate stable at this time (2) ESRD (end stage renal disease) Is this a current diagnosis for this admission?: Yes Plan: Hemodialysis per nephrology (3) Pleural effusion Is this a current diagnosis for this admission?: Yes Plan: At some point in time this needs to be dealt with recent does not appear to be currently in any respiratory distress the report states that the patient has septations in the area of the right pleural effusion suggests and is very loculated he may need to see a thoracic surgeon for a VATS procedure preclude these loculations (5) Coronary artery disease Qualifiers: Coronary Disease-Associated Artery/Lesion type: unspecified vessel or lesion type Is this a current diagnosis for this admission?: Yes (6) Gastroesophageal reflux disease Qualifiers: Esophagitis presence: without esophagitis Qualified Code(s): K21.9 - Gastro -esophageal reflux disease without esophagitis Is this a current diagnosis for this admission?: Yes Plan: Continue PPIs
--- NOTE | 2017-12-15 16:27 | RADIOLOGY REPORT (SQ) ---
EXAM DESCRIPTION: CTA CHEST COMPLETED DATE/TIME: 12/15/2017 3:42 pm REASON FOR STUDY: SOB COMPARISON: CT chest 06/10/2015, 08/28/2015, 04/12/2017 TECHNIQUE: CT scan of the chest performed using helical scanning technique with dynamic intravenous contrast injection. Images reviewed with lung, soft tissue and bone windows. Reconstructed coronal and sagittal MPR images reviewed. Additional 3 dimensional post-processing performed to develop Maximal Intensity Projection images (IL P). All images stored on PACS. All CT scanners at this facility use dose modulation, iterative reconstruction, and/or weight based d osing when appropriate to reduce radiation dose to as low as reasonably achievable (ALARA). [facility]: Dose Right [facility]: CareDose [facility]: Dose Right [facility]: Teradose 4D [facility]: Ubicom CONTRAST TYPE AND DOSE: contrast/concentration: Isovue 370.00 mg/ml; Total Contrast Delivered: 67.0 ml; Total Saline Delivered: 110.0 ml Contrast bolus optimized for the pulmonary arteries. Not diagnostic for the aorta. RENAL FUNCTION: Creatinine 8.5. Patient is on dialysis RADIATION DOSE: CT Rad equipment meets quality standard of care and radiation dose reduction techniq ues were employed. CTDIvol: 12.1 - 15.0 mGy. DLP: 456 mGy-cm. . LIMITATIONS: None. FINDINGS: LUNGS AND PLEURA: Small bilateral pleural effusions are present, similar compared to 018. There is airspace disease in the dependent portions of the right and left lower lobe, atelectasis karime vito pneumonia, similar compared to 12/06/2017. No pneumothorax. Airways are patent. AORTA AND GREAT VESSELS: No aneurysm. Contrast bolus not optimized for the aorta. HEART: No pericardial effusion. Moderate cardiomegaly. Diffuse coronary artery calcifications. Rece nt sternotomy for CABG. PULMONARY ARTERIES: No emboli visualized in the main pulmonary arteries or the segmental branches. HILAR AND MEDIASTINAL STRUCTURES: No identified masses or abnormal nodes. HARDWARE: Cassette sternotomy for CABG UPPER ABDOMEN: No significant findings. Limited exam. THYROID AND OTHER SOFT TISSUES: No masses. No adenopathy. BONES: T12 kyphoplasty with bone cement 3D MIPS: Confirm above findings. OTHER: No other significant finding. IMPRESSION: Stable small bilateral pleural effusions with bibasilar airspace fluid. No CT angio evidence of acute pulmonary emboli COMMENT: Quality ID # [id number]: Final reports with documentation of one or more dose reduction techniques (e.g., Automated exposure control, adjustment of the mA and/or kV according to patient size, use of iterative reconstruction technique) TECHNICAL DOCUMENTATION: JOB ID: [id number] [employer]- All Rights Reserved Reading location - IP/workstation name: [facility]
[2017-12-15] MEDS: MIRTAZAPINE 15 MG TABLET PO SCH (21:41)
[2017-12-16] MEDS: ACETAMINOPHEN 325 MG TABLET PO PRN ×2 (00:28→08:06)
[2017-12-16] MEDS ORDERED: EPOETIN ALFA INJ 20000 UNIT/1 ML VIAL (RENAL) IV PRN (05:00)
[2017-12-16] MEDS ORDERED: NORMAL SALINE 1000 ML 1,000 ML IV PRN (05:00)
[2017-12-16] MEDS: LANSOPRAZOLE 30 MG TAB.RAP.DR PO SCH (05:18)
[2017-12-16] MEDS: HEPARIN SOD (PORCINE) 5,000 UNIT/ML 1 ML SYRINGE SUBCUT SCH ×2 (05:19→13:46)
[2017-12-16] MEDS: HYDROMORPHONE HCL 2 MG TABLET PO PRN (05:22)
[2017-12-16 05:41] LABS: HEMOGLOBIN 9.3 g/dL (13.5-17.0); MEAN CORPUSCULAR HEMOGLOBIN 32.6 pg (27.0-33.4); MEAN CORPUSCULAR HGB CONC 33.2 g/dL (32.0-36.0); MEAN CORPUSCULAR VOLUME 98 fl (80-97); PLATELET COUNT 283 10^3/uL (150-450); RED BLOOD COUNT 2.86 10^6/uL (4.35-5.55); RED CELL DISTRIBUTION WIDTH 26.9 % (11.5-14.0); WHITE BLOOD COUNT 6.6 10^3/uL (4.0-10.5)
[2017-12-16 06:01] LABS: ANION GAP 11 (5-19); BLOOD UREA NITROGEN 34 mg/dL (7-20); CALCIUM 8.9 mg/dL (8.4-10.2); CARBON DIOXIDE 34 mmol/L (22-30); CHLORIDE 98 mmol/L (98-107); GLUCOSE 117 mg/dL (75-110); POTASSIUM 5.3 mmol/L (3.6-5.0); SODIUM 142.7 mmol/L (137-145)
[2017-12-16 06:09] LABS: ABSOLUTE LYMPHOCYTES# (MANUAL) 0.9 10^3/uL (0.5-4.7); ABSOLUTE MONOCYTES # (MANUAL) 0.5 10^3/uL (0.1-1.4); BASOPHILS % (MANUAL) 1 % (0-2); EOSINOPHILS % (MANUAL) 4 % (0-6); LYMPHOCYTES % (MANUAL) 13 % (13-45); MONOCYTES % (MANUAL) 7 % (3-13); SEGMENTED NEUTROPHILS % (MAN) 75 % (42-78); TOTAL CELLS COUNTED 100
[2017-12-16 06:10] LABS: PLATELET COMMENT ADEQUATE
[2017-12-16 06:20] LABS: ANISOCYTOSIS 3+; HYPOCHROMASIA 2+; OVALOCYTES SLIGHT; POIKILOCYTOSIS 1+
[2017-12-16 06:21] LABS: POLYCHROMASIA SLIGHT; STOMATOCYTES SLIGHT
[2017-12-16] MEDS: CALCIUM ACETATE 667 MG CAPSULE PO SCH ×3 (08:04→18:38)
[2017-12-16] MEDS: FERROUS SULFATE 325 MG TABLET PO SCH ×3 (08:04→18:38)
[2017-12-16] MEDS: MIDODRINE HCL 5 MG TABLET PO SCH ×2 (12:03→15:09)
--- NOTE | 2017-12-16 12:53 | PDOC TRANSFER SUMMARY ---
General - Admit/Disc Date/PCP Admission Date/Primary Care Provider: 12/05/17 09:08 FEI ZULETA MD Discharge Date: 12/16/17 - Discharge Diagnosis (1) Chest pain Is this a current diagnosis for this admission?: Yes Summary: Most likely a chest wall pain per the Dr. Angel status post CABG follow with the Dr. Angel as outpatient in [facility] (2) ESRD (end stage renal disease) Is this a current diagnosis for this admission?: Yes Summary: Currently on hemodialysis per nephrology 3 times per week (3) Anemia in chronic kidney disease (CKD) Is this a current diagnosis for this admission?: Yes Summary: Currently all stable (4) Coronary artery disease Is this a current diagnosis for this admission?: Yes Summary: With the Dr. Angel as outpatients (5) Diabetes mellitus Is this a current diagnosis for this admission?: Yes Summary: Continues to current medications and sliding scale with [facility] protocol (6) Gastroesophageal reflux disease Is this a current diagnosis for this admission?: Yes Summary: Currently all stable (7) Hypertension Is this a current diagnosis for this admission?: Yes Summary: Currently well under control (8) Chronic pain syndrome Is this a current diagnosis for this admission?: Yes Summary: Patients does not like the Dilaudid will go back to the oxycodone and follow with the Dr. Smith's next week (9) Atrial fibrillation Is this a current diagnosis for this admission?: Yes Summary: Currently on Eliquis 2.5 mg p.o. twice a day fall precautions (10) Pleural effusion Is this a current diagnosis for this admission?: Yes Summary: Currently all resolved the CT angiogram is all stable will continues to antibiotic for 7 days - Additional Information Discharge Diet: Cardiac Discharge Activity: Activity As Tolerated Prescriptions: Apixaban [Eliquis 2.5 mg Tablet] 2.5 mg PO Q12 #60 tablet Cefdinir [Omnicef 300 mg Capsule] 1 cap PO BID #14 capsule Midodrine HCl [Proamatine 5 mg Tablet] 2.5 mg PO TID@0800,1200,1600 #90 tablet Oxycodone HCl/Acetaminophen [Percocet 5-325 mg Tablet] 1 tab PO ASDIR PRN #15 tab PRN Reason: Home Medications: Nitroglycerin [Nitrostat 0.4 mg (1/150 Gr) Tabs 25/Bottle] 0.4 mg SL Q5MP PRN Acetaminophen [Tylenol 325 mg Tablet] 650 mg PO Q4HP PRN 12/04/17 Atorvastatin Calcium [Lipitor 40 mg Tablet] 40 mg PO DAILY 12/04/17 Benzonatate [Tessalon Perles 100 mg Capsule] 100 mg PO Q8HP PRN 12/04/17 Calcium Acetate [Phoslo 667 mg Capsule] 667 mg PO MEALS 12/04/17 Clopidogrel Bisulfate [Plavix 75 mg Tablet] 75 mg PO DAILY 12/04/17 Epoetin Deo [Procrit] 10,000 unit IJ MOWEFR@1000 12/04/17 Famotidine [Pepcid 20 mg Tablet] 20 mg PO BIDP PRN 12/04/17 Gabapentin [Neurontin 100 mg Capsule] 100 mg PO Q12 12/04/17 Metoprolol Succinate [Toprol Xl 25 mg Tab.sr] 12.5 mg PO DAILY 12/04/17 Mirtazapine [Remeron 15 mg Tablet] 30 mg PO QHS 12/04/17 Pantoprazole Sodium [Protonix] 40 mg PO DAILY 12/04/17 Ramelteon [Rozerem] 8 mg PO QHS 12/04/17 Apixaban [Eliquis 2.5 mg Tablet] 2.5 mg PO Q12 #60 tablet 12/12/17 Midodrine HCl [Proamatine 5 mg Tablet] 2.5 mg PO TID@0800,1200,1600 #90 tablet 12/12/17 Cefdinir [Omnicef 300 mg Capsule] 1 cap PO BID #14 capsule 12/16/17 Oxycodone HCl/Acetaminophen [Percocet 5-325 mg Tablet] 1 tab PO ASDIR PRN #15 tab 12/16/17 History of Present Illness Admission Date/PCP: 12/05/17 09:08 FEI ZULETA MD History of Present Illness: CHAPITO LESLIE is a 62 year old male 's is 62-year-old male with recently have a [facility] have a CABG done was admitted because of the chest pain and the patient's initially ruled out with the acute coronary syndrome and seen by the roll machine operator Hospital Course Hospital Course: This is a 62-year-old male's with a significant history of the type 2 diabetes mellitus hypertension's hyperlipidemia recent history of the CABG with a history of the right-sided pleural effusions with the thoracocentesis and multiple other comorbidity basically admitted because of the chest pain to rule out Patients all cardiac workup is stable and seen by the cardiology was all stable His chest pain is most likely related to the chest wall pain and the cardiology suggest the continues the pain management Seen by the pain management and initially put on the Dilaudid but patient does not like in patients went to go back to the oxycodone Recent have a history of the chronic back issue and chronic pain syndrome and currently see a Dr. Smith's as outpatient Also have a history of the pleural effusions and her thoracocentesis to the [facility] and also not is here also and initially patient scheduled for thoracocentesis but a repeat CT angiogram was very minimal fluid and does not require any thoracocentesis at this point as per discussed with Dr. Rod's the pulmonary Patient also get the hemodialysis per nephrology Otherwise remained stable p.o. intake is stable patients require a couple of liters oxygens and patient's movement a hallway Very extensive discussed with the patient and his regarding the patient's current conditions with the multiple comorbidity with the patient have a multiple issues and multiple consultants needs to be follow Discussed with the patient is currently on Eliquis by the roll machine operator history of the Coumadin because of the patient's with some noncompliance as outpatients Discussed with the patient and the to fall precaution and all side effects of the Eliquis and complication of the Eliquis understand very well Patients get a very maximum benefit of the hospitalization at this point patient discharged to the half-way facility due to the ongoing weakness Patient is to follow outpatients and nephrology for hemodialysis per schedule follow outpatients cardiology and outflow since pain management Physical Exam Vital Signs: Temp Pulse Resp BP Pulse Ox 98.8 F 65 20 144/57 H 97 12/16/17 07:12 12/16/17 07:12 12/16/17 07:12 12/16/17 07:12 12/16/17 08:49 Intake & Output 12/15/17 12/16/17 12/17/17 06:59 06:59 06:59 Intake Total 1206 278 100 Output Total 4800 0 0 Balance -3594 278 100 Weight 82.4 kg 84.6 kg General appearance: PRESENT: no acute distress, well-developed, well-nourished Head exam: PRESENT: atraumatic, normocephalic Eye exam: PRESENT: conjunctiva pink, EOMI, PERRLA. ABSENT: scleral icterus Ear exam: PRESENT: normal external ear exam Mouth exam: PRESENT: moist, tongue midline Neck exam: ABSENT: carotid bruit, JVD, lymphadenopathy, thyromegaly Respiratory exam: PRESENT: clear to auscultation john. ABSENT: rales, rhonchi, wheezes Cardiovascular exam: PRESENT: RRR. ABSENT: diastolic murmur, rubs, systolic murmur Pulses: PRESENT: normal dorsalis pedis pul Vascular exam: PRESENT: normal capillary refill GI/Abdominal exam: PRESENT: normal bowel sounds, soft. ABSENT: distended, guarding, mass, organolmegaly, rebound, tenderness Rectal exam: PRESENT: deferred Extremities exam: PRESENT: full ROM. ABSENT: calf tenderness, clubbing, pedal edema Neurological exam: PRESENT: alert, awake, oriented to person, oriented to place , oriented to time, oriented to situation, CN II-XII grossly intact. ABSENT: motor sensory deficit Psychiatric exam: PRESENT: appropriate affect, normal mood. ABSENT: homicidal ideation, suicidal ideation Skin exam: PRESENT: dry, intact, warm. ABSENT: cyanosis, rash Results Laboratory Results: 12/16/17 04:49 12/16/17 04:49 12/16/17 12/16/17 04:49 04:49 WBC 6.6 RBC 2.86 L Hgb 9.3 L Hct 28.0 L MCV 98 H MCH 32.6 MCHC 33.2 RDW 26.9 H Plt Count 283 Seg Neutrophils % Not Reportable Lymphocytes % Not Reportable Monocytes % Not Reportable Eosinophils % Not Reportable Basophils % Not Reportable Absolute Neutrophils Not Reportable Absolute Lymphocytes Not Reportable Absolute Monocytes Not Reportable Absolute Eosinophils Not Reportable Absolute Basophils Not Reportable Sodium 142.7 Potassium 5.3 H Chloride 98 Carbon Dioxide 34 H Anion Gap 11 BUN 34 H Creatinine 8.53 H Est GFR ( Amer) 8 L Est GFR (Non-Af Amer) 6 L Glucose 117 H Calcium 8.9 Impressions: Chest CT 12/06/17 00:00 IMPRESSION: Trace bilateral pleural effusions. Minimal right basilar atelectasis. Moderate left basilar airspace disease atelectasis versus pneumonia. No pneumothorax Recent sternotomy for CABG. Chest Ultrasound 12/13/17 00:00 IMPRESSION: Small to moderate right subpulmonic pleural effusion with septations. Chest X-Ray 12/14/17 00:00 IMPRESSION: Status post CABG. Cardiomegaly. No significant change. Chest/Abdomen CTA 12/15/17 00:00 IMPRESSION: Stable small bilateral pleural effusions with bibasilar airspace fluid. No CT angio evidence of acute pulmonary emboli Transfer Plan - Time Spent with Patient Time spent with patient: Greater than 30 Minutes Qualifiers - * PATIENT BEING DISCHARGED WITH ANY OF THE FOLLOWING DIAGNOSIS: No VTE patient discharged on overlapping Therapy?: Yes Plan Time Spent: Greater than 30 Minutes - Patient's discharge snf with the stable conditions
[2017-12-16] MEDS: ATORVASTATIN CALCIUM 40 MG TABLET PO SCH (13:36)
[2017-12-16] MEDS: GABAPENTIN 100 MG CAPSULE PO SCH (13:45)
[2017-12-16] MEDS: ASPIRIN 81 MG TABLET, ENT COATED PO SCH (13:46)
[2017-12-16 15:13] VITALS: BP 87/52
--- NOTE | 2017-12-16 16:53 | PDOC PROGRESS REPORT ---
Subjective Progress Note for:: 12/16/17 Subjective:: I saw the patient during dialysis this morning at around 8:30 AM. He looks a little bit better although he still weak. He denies any shortness of breath but still feels right-sided pain. CTA of the chest was done yesterday. Decision was made not to do any more thoracentesis so patient is being planned to be sent to custodial facility after dialysis today. Patient did not have any other further complaints. Reason For Visit: CHEST PAIN WITH RECENT BYPAS,ESRD ON HD,ANEMIA,HTN Physical Exam Vital Signs: Temp Pulse Resp BP Pulse Ox 99.0 F 97 16 87/52 L 92 12/16/17 15:12 12/16/17 15:12 12/16/17 15:12 12/16/17 15:12 12/16/17 15:12 Intake & Output 12/15/17 12/16/17 12/17/17 06:59 06:59 06:59 Intake Total 1206 278 100 Output Total 4800 0 3700 Balance -3594 278 -3600 Weight 82.4 kg 84.6 kg Vitals during dialysis: Blood pressure 140/63, heart rate of 74, blood flow of 300 mL/min, dialysate flow rate of 600 mL/min. Exam: General appearance: PRESENT: no acute distress, cooperative, well-developed, well-nourished Head exam: PRESENT: atraumatic, normocephalic Eye exam: PRESENT: conjunctiva pale, PERRLA. ABSENT: scleral icterus Neck exam: ABSENT: JVD Respiratory exam: PRESENT: Diminished breath sounds. ABSENT: crackles, rales, rhonchi, unlabored, wheezes Cardiovascular exam: PRESENT: Regular rate rhythm -+S1, +S2. ABSENT: diastolic murmur, systolic murmur GI/Abdominal exam: PRESENT: normal bowel sounds, soft. ABSENT: guarding, mass, tenderness Extremities exam: ABSENT: No edema Neurological exam: PRESENT: alert, awake, oriented to person, place and time. Skin exam: PRESENT: dry, warm, Cardiovascular exam: PRESENT: +S1, +S2 Results Laboratory Results: 12/16/17 04:49 12/16/17 04:49 12/16/17 12/16/17 04:49 04:49 WBC 6.6 RBC 2.86 L Hgb 9.3 L Hct 28.0 L MCV 98 H MCH 32.6 MCHC 33.2 RDW 26.9 H Plt Count 283 Seg Neutrophils % Not Reportable Lymphocytes % Not Reportable Monocytes % Not Reportable Eosinophils % Not Reportable Basophils % Not Reportable Absolute Neutrophils Not Reportable Absolute Lymphocytes Not Reportable Absolute Monocytes Not Reportable Absolute Eosinophils Not Reportable Absolute Basophils Not Reportable Sodium 142.7 Potassium 5.3 H Chloride 98 Carbon Dioxide 34 H Anion Gap 11 BUN 34 H Creatinine 8.53 H Est GFR ( Amer) 8 L Est GFR (Non-Af Amer) 6 L Glucose 117 H Calcium 8.9 Impressions: Chest CT 12/06/17 00:00 IMPRESSION: Trace bilateral pleural effusions. Minimal right basilar atelectasis. Moderate left basilar airspace disease atelectasis versus pneumonia. No pneumothorax Recent sternotomy for CABG. Chest Ultrasound 12/13/17 00:00 IMPRESSION: Small to moderate right subpulmonic pleural effusion with septations. Chest X-Ray 12/14/17 00:00 IMPRESSION: Status post CABG. Cardiomegaly. No significant change. Chest/Abdomen CTA 12/15/17 00:00 IMPRESSION: Stable small bilateral pleural effusions with bibasilar airspace fluid. No CT angio evidence of acute pulmonary emboli Assessment & Plan - Diagnosis (1) ESRD (end stage renal disease) Is this a current diagnosis for this admission?: Yes Plan: We did dialysis today for 3 hours, using the patient's AV fistula, with 2 potassium bath, blood flow rate of 350 mL per minute, dialysate flow rate of 600 mL per minute, ultrafiltration 3-4 L as tolerated, no heparin and Procrit with 20,000 units during dialysis intravenously. Patient tolerated dialysis without any problems. (2) Chest wall pain following surgery Is this a current diagnosis for this admission?: Yes (3) Anemia in chronic kidney disease (CKD) Qualifiers: Chronic kidney disease stage: on chronic dialysis Qualified Code(s): N18.6 - End stage renal disease Is this a current diagnosis for this admission?: Yes Plan: Procrit was given today during dialysis. (4) Pleural effusion Is this a current diagnosis for this admission?: Yes Plan: CTA was interpreted with small bilateral pleural effusions. Dr. Baez decided not to have any thoracentesis done at this point. (5) Leg wound, left Is this a current diagnosis for this admission?: Yes (6) Coronary artery disease Qualifiers: Coronary Disease-Associated Artery/Lesion type: unspecified vessel or lesion type Is this a current diagnosis for this admission?: Yes (7) Diabetes mellitus Qualifiers: Diabetes mellitus type: type 2 Diabetes mellitus ferry terminal agent insulin use: with ferry terminal agent use Diabetes mellitus complication status: with neurologic complications Diabetes mellitus complication detail: with polyneuropathy Qualified Code(s): E11.42 - Type 2 diabetes mellitus with diabetic polyneuropathy Is this a current diagnosis for this admission?: Yes (8) Hypertension Qualifiers: Hypertension type: essential hypertension Qualified Code(s): I10 - Essential (primary) hypertension Is this a current diagnosis for this admission?: Yes - Notes Notes: If the patient gets discharged today, next dialysis will be on Tuesday on his regular dialysis schedule at [facility]. - Time Time with patient: 15-25 minutes
== END 2017-12-16 19:17 | DRG 682 ==
LOC: ER 02:39 → UNDOADMOB 06:04 → EH 06:04 → 5 09:34 → 3S 12:08 → OBSVTOIN 12-05 09:08
PROVIDERS: ADMIT Family Medicine; ATTEND Family Medicine
PROC: 5A1D70Z Performance of Urinary Filtration, Intermittent, Less than 6 Hours Per Day (ICD-10-PCS; 2017-12-05)
PROC: 5A1D70Z Performance of Urinary Filtration, Intermittent, Less than 6 Hours Per Day (ICD-10-PCS; 2017-12-07)
PROC: 5A1D70Z Performance of Urinary Filtration, Intermittent, Less than 6 Hours Per Day (ICD-10-PCS; 2017-12-09)
PROC: 0JDM3ZZ Extraction of Left Upper Leg Subcutaneous Tissue and Fascia, Percutaneous Approach (ICD-10-PCS; principal; 2017-12-11)
PROC: 5A1D70Z Performance of Urinary Filtration, Intermittent, Less than 6 Hours Per Day (ICD-10-PCS; 2017-12-12)
PROC: 5A1D70Z Performance of Urinary Filtration, Intermittent, Less than 6 Hours Per Day (ICD-10-PCS; 2017-12-14)
PROC: 5A1D70Z Performance of Urinary Filtration, Intermittent, Less than 6 Hours Per Day (ICD-10-PCS; 2017-12-16)
DX: I12.0 Hypertensive chronic kidney disease with stage 5 chronic kidney disease or end stage renal disease (principal); N18.6 End stage renal disease; J90 Pleural effusion, not elsewhere classified; N25.81 Secondary hyperparathyroidism of renal origin; D63.1 Anemia in chronic kidney disease; R07.89 Other chest pain; I25.10 Atherosclerotic heart disease of native coronary artery without angina pectoris; E11.22 Type 2 diabetes mellitus with diabetic chronic kidney disease; K21.9 Gastro-esophageal reflux disease without esophagitis; I48.91 Unspecified atrial fibrillation; G89.4 Chronic pain syndrome; E78.00 Pure hypercholesterolemia, unspecified; R25.1 Tremor, unspecified; F32.9 Major depressive disorder, single episode, unspecified; F41.1 Generalized anxiety disorder; I45.19 Other right bundle-branch block; E87.5 Hyperkalemia; E11.42 Type 2 diabetes mellitus with diabetic polyneuropathy; I95.9 Hypotension, unspecified; I25.2 Old myocardial infarction; Z99.2 Dependence on renal dialysis; Z95.1 Presence of aortocoronary bypass graft; Z79.899 Other long term (current) drug therapy; Z89.411 Acquired absence of right great toe; Z89.422 Acquired absence of other left toe(s); Z87.891 Personal history of nicotine dependence; Z88.3 Allergy status to other anti-infective agents; Z90.49 Acquired absence of other specified parts of digestive tract; Z79.4 Long term (current) use of insulin; Z79.01 Long term (current) use of anticoagulants; Z82.49 Family history of ischemic heart disease and other diseases of the circulatory system; Z80.9 Family history of malignant neoplasm, unspecified
CPT/HCPCS: 36415; 71045; 71046; 71250; 71275; 76604; 80048; 80053; 80061; 82272; 82533; 82550; 82553; 82962; 83615; 83735; 83880; 84155; 84484; 85025; 85027; 85610; 85730; 87040; 93005; 93010; 99285; G0378; G8978-GP; G8979-GP; J0696; J1644; J3490; Q4081

== ENCOUNTER 2018-01-30 13:13 | Inpatient (IN) | payer MEDICARE ==
--- NOTE | 2018-01-30 13:41 | ER Document Report ---
ED Respiratory Problem - General Stated Complaint: BREATHING DIFFICULTY Time Seen by Provider: 01/30/18 13:33 Information source: Patient Notes: Patient is a 62-year-old male with past medical history as recorded including dialysis, Tuesday, as well as a CABG April 28, diabetes, high blood pressure, high cholesterol, congestive heart failure, atrial fibrillation, hepatitis C, and obstructive sleep apnea who presents today stating he felt some shortness of breath starting around 5 AM. Patient states some chest discomfort but states that this has not changed since his open heart surgery on October 26. He denies any increased pain. Denies any calf pain or leg swelling. He does state a nonproductive cough. No runny nose, congestion, or fevers. Patient states that he was at a rehab facility until 3 days ago and was discharged not on oxygen. Patient states he is normally on 2 L nasal cannula daily. He states that he was told to follow-up with his primary care physician. He states his family thought he was not breathing as well today. He still wanted to go to dialysis and was placed on oxygen there. He states he was feeling much better after being placed on oxygen and completed almost the full dialysis session. Patient states that they could not get a good pulse oxygenation and they therefore sent patient here for further evaluation. TRAVEL OUTSIDE OF THE [place] 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 denies: DM - Past Medical History Cardiac Medical History: Reports: Hx Congestive Heart Failure, Hx Coronary Artery Disease Denies: Hx Heart Attack, Hx Hypertension - SOMETIMES,NO MEDS Pulmonary Medical History: Denies: Hx Asthma, Hx Bronchitis, Hx COPD, Hx Pneumonia Neurological Medical History: Denies: Hx Cerebrovascular Accident, Hx Seizures Endocrine Medical History: Reports: Hx Diabetes Mellitus Type 2 Renal/ Medical History: Reports: Hx End Stage Renal Disease - Dialysis dependent, Hx Hemodialysis, Hx Renal Insufficiency. Denies: Hx Peritoneal Dialysis GI Medical History: Reports: Hx Gastroesophageal Reflux Disease. Denies: Hx Hepatitis, Hx Hiatal Hernia, Hx Ulcer Musculoskeletal Medical History: Denies Hx Arthritis Skin Medical History: Denies Hx Psoriasis Psychiatric Medical History: Reports: Hx Depression Traumatic Medical History: Denies: Hx Traumatic Brain Injury Infectious Medical History: Denies: Hx Hepatitis Past Surgical History: Reports: Hx Cardiac Catheterization, Hx Coronary Artery Bypass Graft - X3 vessel on October 26, 2017, Hx Orthopedic Surgery - Right big toe amputation in 2014, left third and fourth toe amputation, Hx Vascular Surgery, Other - Cervical laminectomy in 2012. Denies: Hx Open Heart Surgery, Hx Pacemaker - Immunizations Hx Diphtheria, Pertussis, Tetanus Vaccination: Yes Hx Pneumococcal Vaccination: 02/05/15 Review of Systems - Review of Systems Constitutional: denies: Fever EENT: denies: Eye discharge, Nose discharge Cardiovascular: denies: Palpitations Respiratory: Short of breath. denies: Hemoptysis, Wheezing Gastrointestinal: denies: Vomiting Musculoskeletal: denies: Leg swelling Skin: Other - no hives. denies: Rash Neurological/Psychological: Other - no slurred speech -: Yes All other systems reviewed and negative Physical Exam - Vital signs Vitals: Temp 98.4 F 01/30/18 13:13 Notes: Reviewed vital signs and nursing note as charted by RN. CONSTITUTIONAL: Alert and oriented and responds appropriately to questions. Well -appearing; well-nourished HEAD: Normocephalic; atraumatic EYES: PERRL; Conjunctivae clear, sclerae non-icteric ENT: Normal nose; no rhinorrhea; moist mucous membranes; pharynx without lesions noted NECK: Supple without meningismus; non-tender CARD: Regular rate and rhythm; no murmurs; symmetric distal pulses RESP: Normal chest excursion without splinting or tachypnea; breath sounds clear and equal bilaterally; normal rales at the bases with no wheezing or rhonchi ABD/GI: Normal bowel sounds; non-distended; soft, non-tender; no palpable organomegaly or masses BACK: The back appears normal and is non-tender to palpation EXT: Normal ROM in all joints; non-tender to palpation, no edema SKIN: Normal color for age and race; warm; no acute lesions noted NEURO: Moves all extremities equally; Motor and sensory function intact PSYCH: The patient's mood and manner are appropriate. Grooming and personal hygiene are appropriate. Course - Re-evaluation Re-evalutation: 01/30/18 13:38 Given the above history and physical examination we will order cardiac panel, x- ray of the chest, and reassess. Patient states his pain is no worse than normal. He has had no fever. No calf pain or leg swelling. I do believe pulmonary embolism to be unlikely. Patient does have some mild tachycardia. Blood pressure was stable. 01/30/18 13:40 EKG shows a heart rate of 114, atrial fibrillation, right bundle branch block, PVCs present. Previous EKG has been compared showing a similar morphology. 01/30/18 14:51 I reviewed the previous we have hospitalization discharge note as well as the patient's previous admission note here by Dr. Lennie Baez. It appears the patient has some chronic septated pleural effusions. He did have a thoracentesis back in November. Patient has been treated with Dilaudid and oxycodone for the right sided chest wall pain. 01/30/18 16:11 Patient is satting 97% on 2 L of nasal cannula. Patient is not on oxygen at home. Off oxygen the patient satting in the high 80s. Patient may have a slightly increased right pleural effusion. Patient did 3 out of 4 hours of dialysis today. I talked to the primary care physician would like repeat troponin in 530 and if this is unremarkable or unchanged patient will be admitted to his service. - Vital Signs Vital signs: Temp Pulse Resp BP Pulse Ox 98.4 F 113 H 22 H 117/72 01/30/18 13:13 01/30/18 13:14 01/30/18 13:14 01/30/18 13:14 - Laboratory Result Diagrams: 01/30/18 13:15 01/30/18 14:27 Laboratory results interpreted by me: 01/30/18 01/30/18 13:15 14:27 RBC 3.73 L Hgb 11.2 L Hct 35.8 L MCHC 31.1 L RDW 24.3 H Chloride 95 L Creatinine 4.69 H Est GFR ( Amer) 15 L Est GFR (Non-Af Amer) 13 L Glucose 148 H Discharge - Discharge Clinical Impression: Pleural effusion, right Dyspnea Qualifiers: Dyspnea type: unspecified Qualified Code(s): R06.00 - Dyspnea, unspecified Condition: Fair Disposition: ADMITTED INPATIENT Admitting Provider: [facility] Unit Admitted: IMCU Referrals: CLARICE LUND MD [NO LOCAL MD] - Follow up as needed
[2018-01-30 13:43] LABS: ABSOLUTE BASOPHILS # (AUTO) 0.1 10^3/uL (0.0-0.2); ABSOLUTE EOSINOPHILS # (AUTO) 0.3 10^3/uL (0.0-0.6); ABSOLUTE LYMPHOCYTES (AUTO) 1.3 10^3/uL (0.5-4.7); ABSOLUTE MONOCYTES (AUTO) 0.7 10^3/uL (0.1-1.4); ABSOLUTE NEUT (AUTO) 5.3 10^3/uL (1.7-8.2); EOSINOPHILS % (AUTO) 3.6 % (0-6); HEMATOCRIT 35.8 % (37.9-51.0); HEMOGLOBIN 11.2 g/dL (13.5-17.0); MEAN CORPUSCULAR HEMOGLOBIN 29.9 pg (27.0-33.4); MEAN CORPUSCULAR HGB CONC 31.1 g/dL (32.0-36.0); MEAN CORPUSCULAR VOLUME 96 fl (80-97); MONOCYTES % (AUTO) 9.2 % (3-13); PLATELET COUNT 286 10^3/uL (150-450); RED BLOOD COUNT 3.73 10^6/uL (4.35-5.55); RED CELL DISTRIBUTION WIDTH 24.3 % (11.5-14.0); SEGMENTED NEUTROPHILS % (AUTO) 69.2 % (42-78); TOTAL CELLS COUNTED % (AUTO) 100 %; WHITE BLOOD COUNT 7.6 10^3/uL (4.0-10.5)
[2018-01-30 14:11] LABS: ANISOCYTOSIS 3+; OVALOCYTES SLIGHT; POIKILOCYTOSIS SLIGHT; TARGET CELLS SLIGHT
[2018-01-30 14:12] LABS: PLATELET COMMENT ADEQUATE
--- NOTE | 2018-01-30 14:37 | RADIOLOGY REPORT (SQ) ---
EXAM DESCRIPTION: CHEST 2 VIEWS COMPLETED DATE/TIME: 01/30/2018 2:08 pm REASON FOR STUDY: 16, SOB COMPARISON: None. EXAM PARAMETERS: NUMBER OF VIEWS: two views TECHNIQUE: Digital Frontal and Lateral radiographic views of the chest acquired. RADIATION DOSE: NA LIMITATIONS: none FINDINGS: LUNGS AND PLEURA: Pulmonary vascular congestion. No caro pulmonary edema. Prominent john ateral pleural effusions. MEDIASTINUM AND HILAR STRUCTURES: No masses or contour abnormalities. HEART AND VASCULAR STRUCTURES: Cardiomegaly. BONES: No acute findings. HARDWARE: None in the chest. OTHER: No other significant finding. IMPRESSION: Cardiomegaly. Pulmonary vascular congestion. Bilateral pleural effusions. TECHNICAL DOCUMENTATION: JOB ID: [id number] [employer]- All Rights Reserved Reading location - IP/workstation name: [email or web address]
[2018-01-30 15:16] LABS: INTERNATIONAL RATION (INR) 1.03
[2018-01-30 15:28] LABS: ANION GAP 15 (5-19); BLOOD UREA NITROGEN 18 mg/dL (7-20); CARBON DIOXIDE 28 mmol/L (22-30); CHLORIDE 95 mmol/L (98-107); GLUCOSE 148 mg/dL (75-110); POTASSIUM 3.7 mmol/L (3.6-5.0); SODIUM 138.4 mmol/L (137-145)
[2018-01-30 15:37] LABS: CALCIUM 8.8 mg/dL (8.4-10.2)
[2018-01-30] MEDS ORDERED: ACETAMINOPHEN 325 MG TABLET PO PRN (19:00)
[2018-01-30] MEDS ORDERED: NITROGLYCERIN 0.4 MG/TAB 25 TAB/BOTTLE SL PRN (19:00)
--- NOTE | 2018-01-30 19:31 | EKG REPORT ---
SEVERITY:- ABNORMAL ECG - ATRIAL FIBRILLATION VENTRICULAR TRIGEMINY RIGHT BUNDLE BRANCH BLOCK : Confirmed by: Marco Antonio Padilla MD 30-Jan-2018 19:31:03
[2018-01-30] MEDS ORDERED: IPRATROPIUM/ALBUTEROL 0.5-2.5 MG/3 ML AMPUL NEB PRN (20:08)
[2018-01-30] MEDS ORDERED: GLUCAGON,HUMAN RECOMB 1 MG INJ IM PRN (20:14)
[2018-01-30] MEDS ORDERED: DEXTROSE 50%-WATER 25 GM/50 ML DISP.SYRIN IV PRN ×2 (20:14)
[2018-01-30] MEDS ORDERED: INSULIN LISPRO 100 UNIT/ML 3 ML VIAL SUBCUT PRN (20:14)
[2018-01-30] MEDS ORDERED: DEXTROSE 40% GEL 15 GM TUBE PO PRN ×2 (20:14)
[2018-01-30] MEDS: CALCIUM ACETATE 667 MG CAPSULE PO SCH (21:27)
[2018-01-30] MEDS: APIXABAN 2.5 MG TABLET PO SCH (21:28)
[2018-01-30] MEDS: GABAPENTIN 100 MG CAPSULE PO SCH (21:28)
[2018-01-30] MEDS: MIRTAZAPINE 15 MG TABLET PO SCH (21:28)
[2018-01-30] MEDS: ATORVASTATIN CALCIUM 40 MG TABLET PO SCH (21:28)
[2018-01-30] MEDS ORDERED: (PENDING PHARMACY ID) (Ramelteon [Rozerem] 8 MG) PO SCH (22:00)
[2018-01-31] MEDS: LANSOPRAZOLE 30 MG TAB.RAP.DR PO SCH (06:12)
[2018-01-31] MEDS ORDERED: CALCIUM ACETATE 667 MG CAPSULE ONE (06:14)
[2018-01-31] MEDS: CALCIUM ACETATE 667 MG CAPSULE PO SCH ×3 (06:49→22:43)
[2018-01-31 08:34] LABS: ABSOLUTE BASOPHILS # (AUTO) 0.1 10^3/uL (0.0-0.2); ABSOLUTE EOSINOPHILS # (AUTO) 0.1 10^3/uL (0.0-0.6); ABSOLUTE LYMPHOCYTES (AUTO) 0.5 10^3/uL (0.5-4.7); ABSOLUTE MONOCYTES (AUTO) 0.7 10^3/uL (0.1-1.4); ABSOLUTE NEUT (AUTO) 5.5 10^3/uL (1.7-8.2); BASOPHILS % (AUTO) 0.9 % (0-2); EOSINOPHILS % (AUTO) 1.9 % (0-6); HEMATOCRIT 31.6 % (37.9-51.0); HEMOGLOBIN 10.1 g/dL (13.5-17.0); LYMPHOCYTES % (AUTO) 7.6 % (13-45); MEAN CORPUSCULAR HEMOGLOBIN 30.3 pg (27.0-33.4); MEAN CORPUSCULAR HGB CONC 32.1 g/dL (32.0-36.0); MEAN CORPUSCULAR VOLUME 94 fl (80-97); MONOCYTES % (AUTO) 10.4 % (3-13); PLATELET COUNT 257 10^3/uL (150-450); RED BLOOD COUNT 3.34 10^6/uL (4.35-5.55); RED CELL DISTRIBUTION WIDTH 23.5 % (11.5-14.0); SEGMENTED NEUTROPHILS % (AUTO) 79.2 % (42-78); TOTAL CELLS COUNTED % (AUTO) 100 %; WHITE BLOOD COUNT 6.9 10^3/uL (4.0-10.5)
[2018-01-31 08:52] LABS: ALANINE AMINOTRANSFERASE 15 U/L (21-72); ALKALINE PHOSPHATASE 62 U/L (38-126); ANION GAP 14 (5-19); ASPARTATE AMINO TRANSFERASE 14 U/L (17-59); BILIRUBIN,DIRECT 0.8 mg/dL (0.0-0.4); BILIRUBIN,TOTAL 1.1 mg/dL (0.2-1.3); BLOOD UREA NITROGEN 24 mg/dL (7-20); CALCIUM 8.6 mg/dL (8.4-10.2); CARBON DIOXIDE 26 mmol/L (22-30); CHLORIDE 98 mmol/L (98-107); CREATINE KINASE 48 U/L (55-170); GLUCOSE 129 mg/dL (75-110); POTASSIUM 4.3 mmol/L (3.6-5.0); SODIUM 138.3 mmol/L (137-145)
[2018-01-31 09:03] LABS: CREATINE KINASE MB 1.65 ng/mL (<4.55)
[2018-01-31 09:19] LABS: TROPONIN I 0.163 ng/mL
--- NOTE | 2018-01-31 10:38 | PDOC PROGRESS REPORT ---
Subjective Progress Note for:: 01/31/18 Subjective:: Patient is currently doing fair She has denied any chest pain Denied any shortness of the brain while sitting but patients lay down patients feel short of breath Patient is otherwise as she is on no other complaints Reason For Visit: SOB,ESRD Physical Exam Vital Signs: Temp Pulse Resp BP Pulse Ox 98.9 F 85 17 125/58 L 94 01/31/18 07:27 01/31/18 07:27 01/31/18 07:27 01/31/18 07:27 01/31/18 07:27 Intake & Output 01/30/18 01/31/18 02/01/18 06:59 06:59 06:59 Output Total 300 Balance -300 Weight 81.3 kg General appearance: PRESENT: no acute distress, well-developed, well-nourished Head exam: PRESENT: atraumatic, normocephalic Eye exam: PRESENT: conjunctiva pink, EOMI, PERRLA. ABSENT: scleral icterus Ear exam: PRESENT: normal external ear exam Mouth exam: PRESENT: moist, tongue midline Neck exam: PRESENT: full ROM. ABSENT: carotid bruit, JVD, lymphadenopathy, thyromegaly Respiratory exam: PRESENT: clear to auscultation john Cardiovascular exam: PRESENT: RRR. ABSENT: diastolic murmur, rubs, systolic murmur Pulses: PRESENT: normal dorsalis pedis pul, +2 pedal pulses bilateral Vascular exam: PRESENT: normal capillary refill GI/Abdominal exam: PRESENT: normal bowel sounds, soft. ABSENT: distended, guarding, mass, organolmegaly, rebound, tenderness Rectal exam: PRESENT: deferred Extremities exam: ABSENT: pedal edema Musculoskeletal exam: PRESENT: ambulatory Neurological exam: PRESENT: alert, awake, oriented to person, oriented to place , oriented to time, oriented to situation, CN II-XII grossly intact. ABSENT: motor sensory deficit Psychiatric exam: PRESENT: appropriate affect, normal mood. ABSENT: homicidal ideation, suicidal ideation Skin exam: PRESENT: dry, intact, warm. ABSENT: cyanosis, rash Results Laboratory Results: 01/31/18 07:53 01/31/18 07:53 01/31/18 01/31/18 07:53 07:53 WBC 6.9 RBC 3.34 L Hgb 10.1 L Hct 31.6 L MCV 94 MCH 30.3 MCHC 32.1 RDW 23.5 H Plt Count 257 Seg Neutrophils % 79.2 H Lymphocytes % 7.6 L Monocytes % 10.4 Eosinophils % 1.9 Basophils % 0.9 Absolute Neutrophils 5.5 Absolute Lymphocytes 0.5 Absolute Monocytes 0.7 Absolute Eosinophils 0.1 Absolute Basophils 0.1 Sodium 138.3 Potassium 4.3 Chloride 98 Carbon Dioxide 26 Anion Gap 14 BUN 24 H Creatinine 5.48 H Est GFR ( Amer) 13 L Est GFR (Non-Af Amer) 11 L Glucose 129 H Calcium 8.6 Magnesium 1.8 Total Bilirubin 1.1 AST 14 L ALT 15 L Alkaline Phosphatase 62 Total Protein 7.0 Albumin 3.0 L 01/31/18 01/31/18 07:53 07:53 Creatine Kinase 48 L CK-MB (CK-2) 1.65 Troponin I 0.163 Impressions: Chest X-Ray 01/30/18 13:33 IMPRESSION: Cardiomegaly. Pulmonary vascular congestion. Bilateral pleural effusions. Assessment & Plan - Diagnosis (1) Dyspnea Qualifiers: Dyspnea type: unspecified Qualified Code(s): R06.00 - Dyspnea, unspecified Is this a current diagnosis for this admission?: Yes Plan: Multifactorial Patient of a CT angiogram done 2 weeks back was all negative for any PE Get the chest ultrasounds to rule out any pleural effusions (2) Anemia in chronic kidney disease (CKD) Qualifiers: Chronic kidney disease stage: on chronic dialysis Qualified Code(s): N18.6 - End stage renal disease; D63.1 - Anemia in chronic kidney disease; D63.1 - Anemia in chronic kidney disease; Z99.2 - Dependence on renal dialysis; Z99.2 - Dependence on renal dialysis; Z99.2 - Dependence on renal dialysis; Z99.2 - Dependence on renal dialysis Is this a current diagnosis for this admission?: Yes (3) Atrial fibrillation Qualifiers: Atrial fibrillation type: chronic Qualified Code(s): I48.2 - Chronic atrial fibrillation Is this a current diagnosis for this admission?: Yes Plan: Currently on Eliquis 2.5 mg p.o. twice a day (4) Chest pain Qualifiers: Chest pain type: other chest pain Qualified Code(s): R07.89 - Other chest pain; R07.8 - Other chest pain Is this a current diagnosis for this admission?: Yes Plan: With the most likely a chest wall pain the patient on multiple risk factor we will consult to cardiology with his elevated troponin for further evaluations (5) Chronic pain syndrome Is this a current diagnosis for this admission?: Yes (6) Coronary artery disease Qualifiers: Coronary Disease-Associated Artery/Lesion type: unspecified vessel or lesion type Is this a current diagnosis for this admission?: Yes Plan: Consult cardiology (7) Diabetes mellitus Qualifiers: Diabetes mellitus type: type 2 Chronic kidney disease stage: on chronic dialysis Is this a current diagnosis for this admission?: Yes Plan: Continues to sliding-scale (8) ESRD (end stage renal disease) Is this a current diagnosis for this admission?: Yes Plan: Currently on hemodialysis consult the nephrology (9) Hypertension Qualifiers: Hypertension type: essential hypertension Is this a current diagnosis for this admission?: Yes Plan: Currently all stable (10) Pleural effusion Is this a current diagnosis for this admission?: Yes Plan: Will get the ultrasound for the chest - Time Time Spent with patient: 15-24 minutes Medications reviewed and adjusted accordingly: Yes Anticipated discharge: Home Within: Other - Inpatient Certification Medical Necessity: Significant Comorbidiites Make Outpatient Treatment Too Risky , Need Close Monitoring Due to Risk of Patient Decompensation Post Hospital Care: D/C Engineering Scientist Documentation - Plan Summary Plan Summary: Discussed with the patient and the regarding the patient's current conditions patient of a multiple comorbidity
--- NOTE | 2018-01-31 10:42 | PDOC CONSULTATION ---
Consultation Consult Date: 01/31/18 Attending physician:: FEI ZULETA Consult reason:: Positive troponin I History of Present Illness Admission Date/PCP: 01/30/18 20:21 FEI ZULETA MD Patient complains of: Shortness of breath History of Present Illness: Patient is a 62-year-old male with past medical history as recorded including dialysis, Tuesday, as well as a CABG April 28, diabetes, high blood pressure, high cholesterol, congestive heart failure, atrial fibrillation, hepatitis C, and obstructive sleep apnea who presents today stating he felt some shortness of breath starting around 5 AM. Patient states some chest discomfort but states that this has not changed since his open heart surgery on October 26. He denies any increased pain. Denies any calf pain or leg swelling. He does state a nonproductive cough. No runny nose, congestion, or fevers. Patient states that he was at a rehab facility until 3 days ago and was discharged not on oxygen. Patient states he is normally on 2 L nasal cannula daily. He states that he was told to follow-up with his primary care physician. He states his family thought he was not breathing as well today. He still wanted to go to dialysis and was placed on oxygen there. He states he was feeling much better after being placed on oxygen and completed almost the full dialysis session. Patient states that they could not get a good pulse oxygenation and they therefore sent patient here for further evaluation. This history obtained by the ER physician was reviewed and confirmed with the patient. Nurses tell me that patient has been intermittently confused. On questioning patient denied any chest pain. His troponin I has trended up. He claims to be less short of breath while oxygen is on. Past Medical History Cardiac Medical History: Reports: Congestive Heart Failure, Coronary Artery Disease Denies: Myocardial Infarction, Hypertension - SOMETIMES,NO MEDS Pulmonary Medical History: Denies: Asthma, Bronchitis, Chronic Obstructive Pulmonary Disease (COPD), Pneumonia Neurological Medical History: Denies: Seizures Endocrine Medical History: Reports: Diabetes Mellitus Type 2 Renal/ Medical History: Reports: End Stage Renal Disease - Dialysis dependent GI Medical History: Reports: Gastroesophageal Reflux Disease Denies: Hepatitis, Hiatal Hernia Musculoskeltal Medical History: Denies: Arthritis Skin Medical History: Denies: Psoriasis Psychiatric Medical History: Reports: Depression Traumatic Medical History: Denies: Traumatic Brain Injury Past Surgical History Past Surgical History: Reports: Cardiac Catheterization, Coronary Artery Bypass Graft - X3 vessel on October 26, 2017, Orthopedic Surgery - Right big toe amputation in 2014, left third and fourth toe amputation, Vascular Surgery, Other - Cervical laminectomy in 2012 Denies: Pacemaker Social History Information Source: Patient Smoking Status: Smoker,Current Status Unk Frequency of Alcohol Use: Rare Hx Recreational Drug Use: No Drugs: None Hx Prescription Drug Abuse: No - Advance Directive Resuscitation Status: Full Code Family History Family History: CAD, Hypertension, Malignancy. denies: DM Parental Family History Reviewed: Yes Children Family History Reviewed: Yes Sibling(s) Family History Reviewed.: Yes Medication/Allergy Home Medications: Acetaminophen [Tylenol 325 mg Tablet] 650 mg PO Q4HP PRN 01/30/18 Apixaban [Eliquis 2.5 mg Tablet] 2.5 mg PO Q12 01/30/18 Atorvastatin Calcium [Lipitor 40 mg Tablet] 40 mg PO DAILY 01/30/18 Calcium Acetate [Phoslo 667 Mg Capsule] 667 mg PO Q8 01/30/18 Clopidogrel Bisulfate [Plavix 75 mg Tablet] 75 mg PO DAILY 01/30/18 Ferrous Sulfate [Iron] 325 mg PO DAILY 01/30/18 Gabapentin [Neurontin 100 mg Capsule] 100 mg PO Q12 01/30/18 Mirtazapine [Remeron] 30 mg PO QHS 01/30/18 Nitroglycerin [Nitrostat 0.4 mg (1/150 Gr) Tabs 25/Bottle] 1 tab SL Q5MP PRN Oxycodone HCl/Acetaminophen [Percocet 5-325 mg Tablet] 1 tab PO Q6HP PRN Pantoprazole Sodium [Protonix] 40 mg PO DAILY 01/30/18 Ramelteon [Rozerem] 8 mg PO QHS 01/30/18 Allergies/Adverse Reactions: vancomycin [Vancomycin] Adverse Reaction (Unknown, Verified 10/19/17 07:42) molina syndrome Review of Systems Review of Systems: Please see history of present illness and past medical history as wall. Constitutional: No fever or chills reported. Fatigue and tiredness reported. Head : No recent chronic headaches, recent head injury. Eyes: No recent eye pain, diplopia, redness, discharge, acute visual changes. Ears: No recent chronic ear pain, acute hearing loss, ear discharge. Oral cavity: No recent ulcerations, bleeding, oral cavity discomfort. Neck: No recent acute neck pain reported. Hematologic: No recent easy bruising or bleeding. Lymphatic: No recent lymph node enlargement reported. Cardiovascular system review: See history of present illness. History of CABG. Respiratory system review: No hemoptysis or blood clots in the lungs reported. Shortness of breath on exertion Gastrointestinal system review: Negative for any recent acute hematemesis, melena. History of hepatitis C Genitourinary system review: No recent acute or chronic hematuria, flank pain, UTI etc. reported. Skin system review: Negative for any recent abnormal bruising, no rash, no pruritus reported. Neurologic: No prior history of strokes, mini strokes, seizure disorder. Psychologic: No history of major psychosis or major depression reported. Musculoskeletal: Minor aches and pains reported. No acute joint swelling reported. Patient has amputation of some of the toes and great toe on the right side. Endocrine: No recent polyuria, polydipsia, recent heat or cold intolerance. Physical Exam Vital Signs: Temp Pulse Resp BP Pulse Ox 98.9 F 85 17 125/58 L 94 01/31/18 07:27 01/31/18 07:27 01/31/18 07:27 01/31/18 07:27 01/31/18 07:27 Intake & Output 01/30/18 01/31/18 02/01/18 06:59 06:59 06:59 Output Total 300 Balance -300 Weight 81.3 kg Exam: GENERAL: well-nourished and in no acute distress. Alert and oriented x3 HEAD: Atraumatic, normocephalic. EYES: Pupils equal round and reactive to light, extraocular movements intact, sclera anicteric, conjunctiva are normal. ENT: TMs normal, nares patent, oropharynx clear without exudates. Moist mucous membranes. No oral ulcerations or bleeding gums noted NECK: supple without lymphadenopathy. Trachea is central. No cervical or axillary lymphadenopathy noted. Carotids are 2+, JVD 10-12 cm LUNGS: Respiration seems nonlabored, no significant accessory muscle action noted. Bibasilar fine crackles and few a scattered wheezes rales or rhonchi noted. Bibasilar dullness noted on percussion. CHEST: Palpation of the chest wall shows no significant chest wall tenderness. HEART: [place] [employer], No PSH, 2/6 JORDAN aortic area, 1/6 gomez systolic murmur mitral area , no rubs, no gallops. ABDOMEN: Soft, no significant tenderness appreciated, normoactive bowel sounds. No guarding, no rebound. No rigidity noted . No masses appreciated. EXTREMITIES: Pedal pulses are 1-2+, no calf tenderness noted. No clubbing or cyanosis. 1+ pedal edema noted, right great toe amputated, 2 lateral toes amputated on the left side. AV graft noted left forearm NEUROLOGICAL: Focused neurological exam showed no significant neurologic deficit. Normal speech, no focal weakness appreciated. PSYCH: Normal mood, normal affect. Judgment and insight within normal limits. SKIN: No significant ecchymosis, skin is noted to be warm. MUSCULOSKELETAL EXAM: No significant acute joint swelling noted. Results Laboratory Results: 01/31/18 07:53 01/31/18 07:53 01/31/18 01/31/18 07:53 07:53 WBC 6.9 RBC 3.34 L Hgb 10.1 L Hct 31.6 L MCV 94 MCH 30.3 MCHC 32.1 RDW 23.5 H Plt Count 257 Seg Neutrophils % 79.2 H Lymphocytes % 7.6 L Monocytes % 10.4 Eosinophils % 1.9 Basophils % 0.9 Absolute Neutrophils 5.5 Absolute Lymphocytes 0.5 Absolute Monocytes 0.7 Absolute Eosinophils 0.1 Absolute Basophils 0.1 Sodium 138.3 Potassium 4.3 Chloride 98 Carbon Dioxide 26 Anion Gap 14 BUN 24 H Creatinine 5.48 H Est GFR ( Amer) 13 L Est GFR (Non-Af Amer) 11 L Glucose 129 H Calcium 8.6 Magnesium 1.8 Total Bilirubin 1.1 AST 14 L ALT 15 L Alkaline Phosphatase 62 Total Protein 7.0 Albumin 3.0 L 01/31/18 01/31/18 07:53 07:53 Creatine Kinase 48 L CK-MB (CK-2) 1.65 Troponin I 0.163 EKG Comments: Atrial fibrillation, RVR, right bundle branch block, nonspecific ST-T wave changes. Impressions: Chest X-Ray 01/30/18 13:33 IMPRESSION: Cardiomegaly. Pulmonary vascular congestion. Bilateral pleural effusions. Assessment & Plan - Diagnosis (1) CAD (coronary artery disease) Qualifiers: Coronary Disease-Associated Artery/Lesion type: unspecified vessel or lesion type [place] vs. 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: unspecified ad terminal makeup operator insulin use status Chronic kidney disease stage: on chronic dialysis Is this a current diagnosis for this admission?: Yes (4) Elevated troponin I level Is this a current diagnosis for this admission?: Yes (5) Dyspnea Qualifiers: Dyspnea type: unspecified Qualified Code(s): R06.00 - Dyspnea, unspecified Is this a current diagnosis for this admission?: Yes (6) ESRD (end stage renal disease) Is this a current diagnosis for this admission?: Yes (7) Hypertension Qualifiers: Hypertension type: essential hypertension Qualified Code(s): I10 - Essential (primary) hypertension Is this a current diagnosis for this admission?: Yes (8) Congestive heart failure Qualifiers: Heart failure type: unspecified Is this a current diagnosis for this admission?: Yes (9) Hypoxemia Is this a current diagnosis for this admission?: Yes - Notes Notes: Troponin I elevation: Exact etiology not clear but could well be from hypoxemia , atrial fibrillation with RVR. Recommend optimization of underlying anti- ischemic therapy. Recommend nitrates, antiplatelets, beta blockers, high potency statins, RIZWAN inhibitor/ARB etc. Atrial fibrillation with rapid ventricular response: Recommend rate control. Beta-blockers preferred in view of CAD. Continue Eliquis therapy at current dose. CHF: Have ordered a 2D echo to evaluate underlying cause of CHF. Agree with fluid removal on dialysis. Hypoxemia: Recommend oxygen supplementation and noninvasive positive pressure ventilation as needed to maintain O2 sat over 90%. CAD: Currently without any chest pain. Will consider evaluation with a nuclear stress test once patient more stable. A 2D echocardiogram has been ordered. In the meantime we will try obtain CABG report etc. End-stage renal disease: Patient advised compliance with dialysis. Nephrology following. Hypertension: Blood pressure goal is 135/85 or less. Currently adequately controlled. Diabetes: Being well managed by window dresser. Recommend avoiding any hyper or hypoglycemia. PVD: Currently stable without any ongoing signs of tissue ischemia. Dyslipidemia: Recommend high potency statin therapy with LDL goal less than 70. - Time Time Spent: 30 to 50 Minutes - More than 50% of the time spent coordinating care , discussing management plans with involved caregivers. Management plans discussed with involved personnels. Medical decision making was of moderate to high complexity, patient's has multiple comorbidities. Medications reviewed and adjusted accordingly: Yes
--- NOTE | 2018-01-31 10:45 | PDOC H&P ---
History of Present Illness Admission Date/PCP: 01/30/18 20:21 FEI ZULETA MD Patient complains of: Shortness of the breath History of Present Illness: CHAPITO LESLIE is a 62 year old male This is a 62-year-old male went to the dialysis today and the patient's oxygen saturation was low and patient was discharged to the ER at that point Emergency department patient oxygen saturation is 86% on room air patient was put on 2 L nasal cannula and patients go up to the 98%'s Recently discharged from the rehab facility with the patient is requiring oxygens especially at nighttime to 2 L She was recently admitting in the hospital extensive evaluation done by the pulmonary and cardiology patient have a history of the recurrent pleural effusions which last CT angiogram was done 2 weeks but was negative for any PE and very minimal effusions Patient's currently follow the [place] cardiology not seen after came from the [facility] Patient's denied any chest pain except when patient's cough no mild chest wall pain She is denied any fever or chills Patient's denied any abdominal pain no nausea no vomiting When I saw the patient in the emergency department comfortable lying in the bed denied any complaints as usual feeling weak This with the patient and the and the bedside to decided to admit in the hospital with a multiple risk factors Patient's 2 sets of the troponin was so for no acute finding Past Medical History Cardiac Medical History: Reports: Atrial Fibrillation, Congestive Heart Failure , Coronary Artery Disease, Myocardial Infarction, Hypertension - SOMETIMES,NO MEDS, Peripheral Vascular Disease Pulmonary Medical History: Denies: Asthma, Bronchitis, Chronic Obstructive Pulmonary Disease (COPD), Pneumonia Neurological Medical History: Denies: Seizures Endocrine Medical History: Reports: Diabetes Mellitus Type 2 Renal/ Medical History: Reports: End Stage Renal Disease - Dialysis dependent GI Medical History: Reports: Gastroesophageal Reflux Disease Denies: Hepatitis, Hiatal Hernia Musculoskeltal Medical History: Denies: Arthritis Skin Medical History: Denies: Psoriasis Psychiatric Medical History: Reports: Depression Traumatic Medical History: Denies: Traumatic Brain Injury Past Surgical History Past Surgical History: Reports: Cardiac Catheterization, Coronary Artery Bypass Graft - X3 vessel on October 26, 2017, Orthopedic Surgery - Right big toe amputation in 2014, left third and fourth toe amputation, Vascular Surgery, Other - Cervical laminectomy in 2012 Denies: Pacemaker Social History Information Source: Patient Smoking Status: Smoker,Current Status Unk Frequency of Alcohol Use: Rare Hx Recreational Drug Use: No Drugs: None Hx Prescription Drug Abuse: No - Advance Directive Resuscitation Status: Full Code Family History Family History: Reviewed & Not Pertinent, CAD, Hypertension, Malignancy. denies : DM Parental Family History Reviewed: Yes Children Family History Reviewed: Yes Sibling(s) Family History Reviewed.: Yes Medication/Allergy Home Medications: Acetaminophen [Tylenol 325 mg Tablet] 650 mg PO Q4HP PRN 01/30/18 Apixaban [Eliquis 2.5 mg Tablet] 2.5 mg PO Q12 01/30/18 Atorvastatin Calcium [Lipitor 40 mg Tablet] 40 mg PO DAILY 01/30/18 Calcium Acetate [Phoslo 667 Mg Capsule] 667 mg PO Q8 01/30/18 Clopidogrel Bisulfate [Plavix 75 mg Tablet] 75 mg PO DAILY 01/30/18 Ferrous Sulfate [Iron] 325 mg PO DAILY 01/30/18 Gabapentin [Neurontin 100 mg Capsule] 100 mg PO Q12 01/30/18 Mirtazapine [Remeron] 30 mg PO QHS 01/30/18 Nitroglycerin [Nitrostat 0.4 mg (1/150 Gr) Tabs 25/Bottle] 1 tab SL Q5MP PRN Oxycodone HCl/Acetaminophen [Percocet 5-325 mg Tablet] 1 tab PO Q6HP PRN Pantoprazole Sodium [Protonix] 40 mg PO DAILY 01/30/18 Ramelteon [Rozerem] 8 mg PO QHS 01/30/18 Allergies/Adverse Reactions: vancomycin [Vancomycin] Adverse Reaction (Unknown, Verified 10/19/17 07:42) molina syndrome Review of Systems Constitutional: PRESENT: fatigue, weakness. ABSENT: chills, fever(s), headache( s), weight gain, weight loss Eyes: ABSENT: visual disturbances Ears: ABSENT: hearing changes Cardiovascular: PRESENT: dyspnea on exertion. ABSENT: chest pain, edema, orthropnea, palpitations Respiratory: ABSENT: cough, hemoptysis Gastrointestinal: ABSENT: abdominal pain, constipation, diarrhea, hematemesis, hematochezia, nausea, vomiting Genitourinary: ABSENT: dysuria, hematuria Musculoskeletal: ABSENT: joint swelling Integumentary: ABSENT: rash, wounds Neurological: ABSENT: abnormal gait, abnormal speech, confusion, dizziness, focal weakness, syncope Psychiatric: ABSENT: anxiety, depression, homidical ideation, suicidal ideation Endocrine: ABSENT: cold intolerance, heat intolerance, menstrual abnormalities, polydipsia, polyuria Hematologic/Lymphatic: ABSENT: easy bleeding, easy bruising, lymphadenopathy Physical Exam Vital Signs: Temp Pulse Resp BP Pulse Ox 98.9 F 85 17 125/58 L 94 01/31/18 07:27 01/31/18 07:27 01/31/18 07:27 01/31/18 07:27 01/31/18 07:27 Intake & Output 01/30/18 01/31/18 02/01/18 06:59 06:59 06:59 Output Total 300 Balance -300 Weight 81.3 kg General appearance: PRESENT: no acute distress, well-developed, well-nourished Head exam: PRESENT: atraumatic, normocephalic Eye exam: PRESENT: conjunctiva pink, EOMI, PERRLA. ABSENT: scleral icterus Ear exam: PRESENT: normal external ear exam Mouth exam: PRESENT: moist, tongue midline Neck exam: PRESENT: full ROM. ABSENT: carotid bruit, JVD, lymphadenopathy, thyromegaly Respiratory exam: PRESENT: clear to auscultation john Cardiovascular exam: PRESENT: RRR. ABSENT: diastolic murmur, rubs, systolic murmur Pulses: PRESENT: normal dorsalis pedis pul, +2 pedal pulses bilateral Vascular exam: PRESENT: normal capillary refill GI/Abdominal exam: PRESENT: normal bowel sounds, soft. ABSENT: distended, guarding, mass, organolmegaly, rebound, tenderness Rectal exam: PRESENT: deferred Extremities exam: ABSENT: pedal edema Musculoskeletal exam: PRESENT: ambulatory Neurological exam: PRESENT: alert, awake, oriented to person, oriented to place , oriented to time, oriented to situation, CN II-XII grossly intact. ABSENT: motor sensory deficit Psychiatric exam: PRESENT: appropriate affect, normal mood. ABSENT: homicidal ideation, suicidal ideation Skin exam: PRESENT: dry, intact, warm. ABSENT: cyanosis, rash Results Laboratory Results: 01/31/18 07:53 01/31/18 07:53 01/31/18 01/31/18 07:53 07:53 WBC 6.9 RBC 3.34 L Hgb 10.1 L Hct 31.6 L MCV 94 MCH 30.3 MCHC 32.1 RDW 23.5 H Plt Count 257 Seg Neutrophils % 79.2 H Lymphocytes % 7.6 L Monocytes % 10.4 Eosinophils % 1.9 Basophils % 0.9 Absolute Neutrophils 5.5 Absolute Lymphocytes 0.5 Absolute Monocytes 0.7 Absolute Eosinophils 0.1 Absolute Basophils 0.1 Sodium 138.3 Potassium 4.3 Chloride 98 Carbon Dioxide 26 Anion Gap 14 BUN 24 H Creatinine 5.48 H Est GFR ( Amer) 13 L Est GFR (Non-Af Amer) 11 L Glucose 129 H Calcium 8.6 Magnesium 1.8 Total Bilirubin 1.1 AST 14 L ALT 15 L Alkaline Phosphatase 62 Total Protein 7.0 Albumin 3.0 L 01/31/18 01/31/18 07:53 07:53 Creatine Kinase 48 L CK-MB (CK-2) 1.65 Troponin I 0.163 Impressions: Chest X-Ray 01/30/18 13:33 IMPRESSION: Cardiomegaly. Pulmonary vascular congestion. Bilateral pleural effusions. Assessment & Plan - Diagnosis (1) Dyspnea Qualifiers: Dyspnea type: unspecified Qualified Code(s): R06.00 - Dyspnea, unspecified Is this a current diagnosis for this admission?: Yes Plan: Multifactorial Patient of a CT angiogram done 2 weeks back was all negative for any PE Get the chest ultrasounds to rule out any pleural effusions (2) Anemia in chronic kidney disease (CKD) Qualifiers: Chronic kidney disease stage: on chronic dialysis Qualified Code(s): N18.6 - End stage renal disease; D63.1 - Anemia in chronic kidney disease; D63.1 - Anemia in chronic kidney disease; Z99.2 - Dependence on renal dialysis; Z99.2 - Dependence on renal dialysis; Z99.2 - Dependence on renal dialysis; Z99.2 - Dependence on renal dialysis Is this a current diagnosis for this admission?: Yes (3) Atrial fibrillation Qualifiers: Atrial fibrillation type: chronic Qualified Code(s): I48.2 - Chronic atrial fibrillation Is this a current diagnosis for this admission?: Yes Plan: Currently on Eliquis 2.5 mg p.o. twice a day (4) Chest pain Qualifiers: Chest pain type: other chest pain Qualified Code(s): R07.89 - Other chest pain; R07.8 - Other chest pain Is this a current diagnosis for this admission?: Yes Plan: With the most likely a chest wall pain the patient on multiple risk factor we will consult to cardiology with his elevated troponin for further evaluations (5) Chronic pain syndrome Is this a current diagnosis for this admission?: Yes (6) Coronary artery disease Qualifiers: Coronary Disease-Associated Artery/Lesion type: unspecified vessel or lesion type Is this a current diagnosis for this admission?: Yes Plan: Consult cardiology (7) Diabetes mellitus Qualifiers: Diabetes mellitus type: type 2 Chronic kidney disease stage: on chronic dialysis Is this a current diagnosis for this admission?: Yes Plan: Continues to sliding-scale (8) ESRD (end stage renal disease) Is this a current diagnosis for this admission?: Yes Plan: Currently on hemodialysis consult the nephrology (9) Hypertension Qualifiers: Hypertension type: essential hypertension Is this a current diagnosis for this admission?: Yes Plan: Currently all stable (10) Pleural effusion Is this a current diagnosis for this admission?: Yes Plan: Will get the ultrasound for the chest - Time Time Spent: 50 to 70 Minutes Medications reviewed and adjusted accordingly: Yes Anticipated discharge: Home Within: Other - Inpatient Certification Medical Necessity: Need Close Monitoring Due to Risk of Patient Decompensation Post Hospital Care: D/C Manager Of It Documentation - Plan Summary Plan Summary: See other MD orders Patient's seen and examined in the emergency department on 01/30 Very extensive discussions with the patient's . The patient's current conditions
[2018-01-31] MEDS: APIXABAN 2.5 MG TABLET PO SCH ×2 (13:11→22:43)
[2018-01-31] MEDS: GABAPENTIN 100 MG CAPSULE PO SCH ×2 (13:11→22:43)
[2018-01-31] MEDS: FERROUS SULFATE 325 MG TABLET PO SCH (13:11)
[2018-01-31] MEDS: CLOPIDOGREL BISULFATE 75 MG TABLET PO SCH (13:11)
[2018-01-31] MEDS: CEFTRIAXONE SODIUM 750 MG in DEXTROSE 5%-WATER 50 ML IV SCH (15:07)
--- NOTE | 2018-01-31 15:40 | PDOC CONSULTATION ---
Consultation Consult Date: 01/31/18 Consult reason:: Hemodialysis. History of Present Illness Admission Date/PCP: 01/30/18 20:21 FEI BAEZ MD History of Present Illness: CHAPITO LESLIE is a 62 year old male with a history of Diabetes mellitus, CAD- CABG, ESRD on hemodialysis under Dr. Elizondo, hypertension, hepatitis C, obstructive sleep apnea was admitted with history of coughing with green productive phlegm and generalized pleuritic type chest pain. Chest x-ray shows that he has some vascular congestion and pleural effusions.No caro evidences of any consolidation at the moment.Patient had recent pneumonia with effusions and was drained in [facility] recently. His last dialysis was yesterday where he had some difficulty because of desaturation but responded to nasal cannula.Labs and medications were reviewed with the patient.Dr. Elizondo is away and I am covering in my absence. Past Medical History Cardiac Medical History: Reports: Atrial Fibrillation, CHF-Diastolic, Coronary Artery Disease, Hypertension-primary, Myocardial Infarction, Peripheral Vascular Disease Pulmonary Medical History: Denies: Asthma, Bronchitis, Chronic Obstructive Pulmonary Disease (COPD), Pneumonia Neurological Medical History: Denies: Seizures Endocrine Medical History: Reports: Diabetes Mellitus Type 2 Complications of Diabetes: Reports: Nephropathy Renal/ Medical History: Reports: End Stage Renal Disease - Dialysis dependent , Hyperphosphatemia, Secondary Hyperparathyroidism GI Medical History: Reports: Gastroesophageal Reflux Disease Denies: Hepatitis, Hiatal Hernia Musculoskeltal Medical History: Denies: Arthritis Skin Medical History: Denies: Psoriasis Psychiatric Medical History: Reports: Depression Traumatic Medical History: Denies: Traumatic Brain Injury Hematology Medical History: Reports Anemia of Chronic Kidney Disease Past Surgical History Past Surgical History: Reports: Cardiac Catheterization, Coronary Artery Bypass Graft - X3 vessel on October 26, 2017, Dialysis Access Surgery AVF, Orthopedic Surgery - Right big toe amputation in 2014, left third and fourth toe amputation , Vascular Surgery, Other - Cervical laminectomy in 2012 Denies: Pacemaker Social History Smoking Status: Smoker,Current Status Unk Frequency of Alcohol Use: Rare Hx Recreational Drug Use: No Drugs: None Hx Prescription Drug Abuse: No - Advance Directive Resuscitation Status: Full Code Family History Parental Family History Reviewed: Yes - Negative for ESRD Children Family History Reviewed: No Sibling(s) Family History Reviewed.: No Medication/Allergy Home Medications: Acetaminophen [Tylenol 325 mg Tablet] 650 mg PO Q4HP PRN 01/30/18 Apixaban [Eliquis 2.5 mg Tablet] 2.5 mg PO Q12 01/30/18 Atorvastatin Calcium [Lipitor 40 mg Tablet] 40 mg PO DAILY 01/30/18 Calcium Acetate [Phoslo 667 Mg Capsule] 667 mg PO Q8 01/30/18 Clopidogrel Bisulfate [Plavix 75 mg Tablet] 75 mg PO DAILY 01/30/18 Ferrous Sulfate [Iron] 325 mg PO DAILY 01/30/18 Gabapentin [Neurontin 100 mg Capsule] 100 mg PO Q12 01/30/18 Mirtazapine [Remeron] 30 mg PO QHS 01/30/18 Nitroglycerin [Nitrostat 0.4 mg (1/150 Gr) Tabs 25/Bottle] 1 tab SL Q5MP PRN Oxycodone HCl/Acetaminophen [Percocet 5-325 mg Tablet] 1 tab PO Q6HP PRN Pantoprazole Sodium [Protonix] 40 mg PO DAILY 01/30/18 Ramelteon [Rozerem] 8 mg PO QHS 01/30/18 Allergies/Adverse Reactions: vancomycin [Vancomycin] Adverse Reaction (Unknown, Verified 10/19/17 07:42) molina syndrome Review of Systems Constitutional: PRESENT: fatigue, weakness. ABSENT: fever(s), headache(s), night sweats Ears: ABSENT: hearing changes Nose, Mouth, and Throat: ABSENT: mouth pain, sore throat, vertigo Cardiovascular: PRESENT: chest pain, dyspnea on exertion, edema. ABSENT: palpitations Respiratory: PRESENT: sputum - Greenish in color Gastrointestinal: ABSENT: abdominal pain, diarrhea, dysphagia, heartburn, melena , nausea, vomiting Genitourinary: ABSENT: dysuria, hematuria Neurological: ABSENT: focal weakness Hematologic/Lymphatic: ABSENT: easy bruising, lymphadenopathy Physical Exam Vital Signs: Temp Pulse Resp BP Pulse Ox 98.7 F 135 H 20 134/77 H 98 01/31/18 11:51 01/31/18 11:51 01/31/18 11:51 01/31/18 11:51 01/31/18 11:51 Intake & Output 01/30/18 01/31/18 02/01/18 06:59 06:59 06:59 Output Total 300 Balance -300 Weight 81.3 kg General appearance: PRESENT: mild distress Eye exam: PRESENT: conjunctiva pink, EOMI, PERRLA Ear exam: PRESENT: normal external ear exam Mouth exam: PRESENT: moist, neck supple Neck exam: ABSENT: lymphadenopathy, meningismus, tenderness, thyromegaly, tracheal deviation Respiratory exam: PRESENT: decreased breath sounds, rhonchi - Scattered especially in the lower bases both lungs. ABSENT: chest wall tenderness Cardiovascular exam: PRESENT: +S1, +S2 GI/Abdominal exam: PRESENT: normal bowel sounds, soft. ABSENT: organomegaly, tenderness Extremities exam: PRESENT: pedal edema Neurological exam: PRESENT: alert, awake, oriented to person, oriented to place Skin exam: ABSENT: erythema, mottled, rash Results Laboratory Results: 01/31/18 07:53 01/31/18 07:53 01/31/18 01/31/18 07:53 07:53 WBC 6.9 RBC 3.34 L Hgb 10.1 L Hct 31.6 L MCV 94 MCH 30.3 MCHC 32.1 RDW 23.5 H Plt Count 257 Seg Neutrophils % 79.2 H Lymphocytes % 7.6 L Monocytes % 10.4 Eosinophils % 1.9 Basophils % 0.9 Absolute Neutrophils 5.5 Absolute Lymphocytes 0.5 Absolute Monocytes 0.7 Absolute Eosinophils 0.1 Absolute Basophils 0.1 Sodium 138.3 Potassium 4.3 Chloride 98 Carbon Dioxide 26 Anion Gap 14 BUN 24 H Creatinine 5.48 H Est GFR ( Amer) 13 L Est GFR (Non-Af Amer) 11 L Glucose 129 H Calcium 8.6 Magnesium 1.8 Total Bilirubin 1.1 AST 14 L ALT 15 L Alkaline Phosphatase 62 Total Protein 7.0 Albumin 3.0 L 01/31/18 01/31/18 07:53 07:53 Creatine Kinase 48 L CK-MB (CK-2) 1.65 Troponin I 0.163 Impressions: Chest X-Ray 01/30/18 13:33 IMPRESSION: Cardiomegaly. Pulmonary vascular congestion. Bilateral pleural effusions. Assessment & Plan - Diagnosis (1) Pneumonia Plan: Clinical findings are indicative of pneumonia. Supportive findings radiologically on lab light in the form of leukocytosis is currently lacking. However patient is immunocompromised. I am going to start him on IV antibiotics in the form of Rocephin and add levofloxacin. Discussed with Dr. Baez. (2) Pleural effusion, right Plan: Dr. Baez is ordering a thoracic ultrasound to delineate more and see if there is a need for thoracentesis and possible ruling out of an empyema. (3) Anemia in chronic kidney disease (CKD) Qualifiers: Chronic kidney disease stage: on chronic dialysis Qualified Code(s): N18.6 - End stage renal disease; D63.1 - Anemia in chronic kidney disease; D63.1 - Anemia in chronic kidney disease; Z99.2 - Dependence on renal dialysis; Z99.2 - Dependence on renal dialysis; Z99.2 - Dependence on renal dialysis; Z99.2 - Dependence on renal dialysis Is this a current diagnosis for this admission?: Yes Plan: Continue on erythropoietin on dialysis. (4) Diabetes mellitus Qualifiers: Diabetes mellitus type: type 2 Chronic kidney disease stage: on chronic dialysis Is this a current diagnosis for this admission?: Yes Plan: Advised tight control. (5) ESRD (end stage renal disease) Is this a current diagnosis for this admission?: Yes Plan: Plan for dialysis in the morning. Orders have been placed. No acute indications for dialysis currently. (6) Hypertension Qualifiers: Hypertension type: essential hypertension Is this a current diagnosis for this admission?: Yes Plan: Controlled.
[2018-01-31] MEDS ORDERED: LEVOFLOXACIN 500 MG TABLET PO ONE (17:00)
--- NOTE | 2018-01-31 18:04 | RADIOLOGY REPORT (SQ) ---
EXAM DESCRIPTION: U/S CHEST COMPLETED DATE/TIME: 01/31/2018 5:49 pm REASON FOR STUDY: pleural effusion COMPARISON: None. LIMITATIONS: None. PROCEDURE: Sonographic evaluation pleural effusions. FINDINGS: Sonographic imaging shows a large right pleural effusion with septations. Small left pleu ral effusion. IMPRESSION: Pleural effusions as described. COMMENT: None. TECHNICAL DOCUMENTATION: JOB ID: [id number] [employer]- All Rights Reserved Reading location - IP/workstation name: [email or web address]
--- NOTE | 2018-01-31 18:40 | XCELERA REPORT ---
[address] [address] Transthoracic Echocardiogram Report Name: CHAPITO LESLIE Age: 62 yrs Gender: Male : 1955 Patient Status: Inpatient Patient Location: [address] [place] [address] Study Date: 01/31/2018 02:14 PM Procedure: A complete two-dimensional transthoracic echocardiogram was performed (2D, M-mode, spectral and color flow Doppler). The study was technically difficult with many images being suboptimal in quality. Reason For Study: CHF, CAD, troponin I elevation Ordering Physician: RACHID GILLIAM Performed By: Deana Kenny Interpretation Summary Left ventricular systolic function is low normal. Doppler measurements suggest pseudonormalized left ventricular relaxation, which is associated with grade II/IV or mild to moderate diastolic dysfunction There is mild to moderate concentric left ventricular hypertrophy. The left ventricle is grossly normal size. Regional wall motion abnormalities cannot be excluded due to limited visualization. Not all wall segments were well visualized. The right ventricle is mild to moderately dilated. The right ventricle appears to be hypertrophied The right ventricular systolic function is mildly reduced. The right atrium is mildly dilated. The left atrium is mildly dilated. Interarterial septum not well visualized and not well dopplered. Cannot comment on ASD/PFO presence. There is a trace to mild amount of mitral regurgitation There is no mitral valve stenosis. There is a trace amount of aortic regurgitation There is no aortic valve stenosis There is a trace or physiologic amount of tricuspid regurgitation Tricuspid regurgitation jet envelope not well defined to measure RV systolic pressure accurately. The aortic root is not well visualized but is probably normal size. The inferior vena cava appeared normal and decreased > 50% with respiration (RAP 5-10 mmHg) There is no pericardial effusion. MMode/2D Measurements & Calculations RVDd: 3.6 cm LVIDd: 4.7 cm FS: 29.1 % Ao root diam: 3.8 cm IVSd: 1.1 cm LVIDs: 3.4 cm EDV(Teich): 104.4 ml Ao root area: 11.1 cm2 LVPWd: 1.1 cm ESV(Teich): 46.1 ml EF(Teich): 55.9 % LVOT diam: 2.1 cm LVOT area: 3.6 cm2 Doppler Measurements & Calculations MV E max alli: MV dec slope: Ao V2 max: LV V1 max P.1 cm/sec 102.1 cm/sec 2.7 mmHg MV A max alli: 513.0 cm/sec2 Ao max P.2 mmHgLV V1 max: 111.7 cm/sec MV dec time: 0.20 sec 82.4 cm/sec MV E/A: 0.91 AYDEE(V,D): 2.9 cm2 PA V2 max: PI end-d alli: TR max alli: 112.2 cm/sec 109.8 cm/sec 213.2 cm/sec PA max P.0 mmHg TR max P.2 mmHg Left Ventricle The left ventricle is grossly normal size. There is mild to moderate concentric left ventricular hypertrophy. Left ventricular systolic function is low normal. Doppler measurements suggest pseudonormalized left ventricular relaxation, which is associated with grade II/IV or mild to moderate diastolic dysfunction. Regional wall motion abnormalities cannot be excluded due to limited visualization. Not all wall segments were well visualized. Right Ventricle The right ventricle is mild to moderately dilated. The right ventricle appears to be hypertrophied. The right ventricular systolic function is mildly reduced. Atria The right atrium is mildly dilated. The left atrium is mildly dilated. Interarterial septum not well visualized and not well dopplered. Cannot comment on ASD/PFO presence. Mitral Valve There is moderate mitral leaflet calcification. There is moderate to severe mitral annular calcification. There is no mitral valve stenosis. There is a trace to mild amount of mitral regurgitation. Aortic Valve The aortic valve is mildly calcified. There is no aortic valve stenosis. There is a trace amount of aortic regurgitation. Tricuspid Valve The tricuspid valve is not well visualized secondary to technical limitations. There is no tricuspid stenosis. There is a trace or physiologic amount of tricuspid regurgitation. Tricuspid regurgitation jet envelope not well defined to measure RV systolic pressure accurately. Pulmonic Valve The pulmonic valve is not well visualized. Great Vessels The aortic root is not well visualized but is probably normal size. The inferior vena cava appeared normal and decreased > 50% with respiration (RAP 5-10 mmHg). Effusions There is no pericardial effusion. : RACHID GILLIAM > Rachid Gilliam
--- NOTE | 2018-01-31 19:56 | EKG REPORT ---
SEVERITY:- ABNORMAL ECG - ATRIAL FIBRILLATION VENTRICULAR PREMATURE COMPLEX RBBB AND LPFB : Confirmed by: Marco Antonio Padilla MD 31-Jan-2018 19:55:44
[2018-01-31] MEDS: MIRTAZAPINE 15 MG TABLET PO SCH (22:43)
[2018-01-31] MEDS: ATORVASTATIN CALCIUM 40 MG TABLET PO SCH (22:43)
[2018-02-01] MEDS ORDERED: EPOETIN ALFA INJ 20000 UNIT/1 ML VIAL (RENAL) IV PRN (05:00)
[2018-02-01 05:16] LABS: ABSOLUTE BASOPHILS # (AUTO) 0.1 10^3/uL (0.0-0.2); ABSOLUTE EOSINOPHILS # (AUTO) 0.3 10^3/uL (0.0-0.6); ABSOLUTE LYMPHOCYTES (AUTO) 0.6 10^3/uL (0.5-4.7); ABSOLUTE MONOCYTES (AUTO) 0.6 10^3/uL (0.1-1.4); ABSOLUTE NEUT (AUTO) 5.4 10^3/uL (1.7-8.2); BASOPHILS % (AUTO) 1.2 % (0-2); EOSINOPHILS % (AUTO) 4.7 % (0-6); HEMATOCRIT 33.5 % (37.9-51.0); HEMOGLOBIN 10.5 g/dL (13.5-17.0); LYMPHOCYTES % (AUTO) 7.9 % (13-45); MEAN CORPUSCULAR HEMOGLOBIN 29.8 pg (27.0-33.4); MEAN CORPUSCULAR HGB CONC 31.3 g/dL (32.0-36.0); MEAN CORPUSCULAR VOLUME 95 fl (80-97); MONOCYTES % (AUTO) 8.8 % (3-13); PLATELET COUNT 274 10^3/uL (150-450); RED BLOOD COUNT 3.52 10^6/uL (4.35-5.55); RED CELL DISTRIBUTION WIDTH 23.7 % (11.5-14.0); SEGMENTED NEUTROPHILS % (AUTO) 77.4 % (42-78); TOTAL CELLS COUNTED % (AUTO) 100 %
[2018-02-01 05:41] LABS: ANION GAP 17 (5-19); BLOOD UREA NITROGEN 32 mg/dL (7-20); CALCIUM 8.4 mg/dL (8.4-10.2); CARBON DIOXIDE 23 mmol/L (22-30); CHLORIDE 98 mmol/L (98-107); GLUCOSE 122 mg/dL (75-110); POTASSIUM 4.7 mmol/L (3.6-5.0); SODIUM 137.9 mmol/L (137-145)
[2018-02-01] MEDS: CALCIUM ACETATE 667 MG CAPSULE PO SCH ×4 (06:22→22:07)
[2018-02-01] MEDS: LANSOPRAZOLE 30 MG TAB.RAP.DR PO SCH (06:22)
[2018-02-01] MEDS: FERROUS SULFATE 325 MG TABLET PO SCH (09:44)
[2018-02-01] MEDS: GABAPENTIN 100 MG CAPSULE PO SCH ×2 (09:44→21:56)
[2018-02-01] MEDS: APIXABAN 2.5 MG TABLET PO SCH (09:44)
[2018-02-01] MEDS: CLOPIDOGREL BISULFATE 75 MG TABLET PO SCH (09:44)
[2018-02-01] MEDS: CEFTRIAXONE SODIUM 750 MG in DEXTROSE 5%-WATER 50 ML IV SCH (12:39)
--- NOTE | 2018-02-01 16:56 | PDOC PROGRESS REPORT ---
Subjective Progress Note for:: 02/01/18 Subjective:: Patient is currently doing fair She has denied any chest pain Denied any shortness of the brain while sitting but patients lay down patients feel short of breath Patient is otherwise as she is on no other complaints Reason For Visit: SOB,ESRD Physical Exam Vital Signs: Temp Pulse Resp BP Pulse Ox 98.9 F 130 H 18 91/44 L 100 02/01/18 12:56 02/01/18 14:00 02/01/18 12:56 02/01/18 12:56 02/01/18 12:56 Intake & Output 01/31/18 02/01/18 02/02/18 06:59 06:59 06:59 Intake Total 300 50 Output Total 300 Balance -300 300 50 Weight 81.3 kg 82.1 kg General appearance: PRESENT: no acute distress, well-developed, well-nourished Head exam: PRESENT: atraumatic, normocephalic Eye exam: PRESENT: conjunctiva pink, EOMI, PERRLA. ABSENT: scleral icterus Ear exam: PRESENT: normal external ear exam Mouth exam: PRESENT: moist, tongue midline Neck exam: PRESENT: full ROM. ABSENT: carotid bruit, JVD, lymphadenopathy, thyromegaly Respiratory exam: PRESENT: clear to auscultation john Cardiovascular exam: PRESENT: RRR. ABSENT: diastolic murmur, rubs, systolic murmur Pulses: PRESENT: normal dorsalis pedis pul, +2 pedal pulses bilateral Vascular exam: PRESENT: normal capillary refill GI/Abdominal exam: PRESENT: normal bowel sounds, soft. ABSENT: distended, guarding, mass, organolmegaly, rebound, tenderness Rectal exam: PRESENT: deferred Extremities exam: ABSENT: pedal edema Neurological exam: PRESENT: alert, awake, oriented to person, oriented to place , oriented to time, oriented to situation, CN II-XII grossly intact. ABSENT: motor sensory deficit Psychiatric exam: PRESENT: appropriate affect, normal mood. ABSENT: homicidal ideation, suicidal ideation Skin exam: PRESENT: dry, intact, warm. ABSENT: cyanosis, rash Results Laboratory Results: 02/01/18 04:18 02/01/18 04:18 02/01/18 02/01/18 04:18 04:18 WBC 7.0 RBC 3.52 L Hgb 10.5 L Hct 33.5 L MCV 95 MCH 29.8 MCHC 31.3 L RDW 23.7 H Plt Count 274 Seg Neutrophils % 77.4 Lymphocytes % 7.9 L Monocytes % 8.8 Eosinophils % 4.7 Basophils % 1.2 Absolute Neutrophils 5.4 Absolute Lymphocytes 0.6 Absolute Monocytes 0.6 Absolute Eosinophils 0.3 Absolute Basophils 0.1 Sodium 137.9 Potassium 4.7 Chloride 98 Carbon Dioxide 23 Anion Gap 17 BUN 32 H Creatinine 6.86 H Est GFR ( Amer) 10 L Est GFR (Non-Af Amer) 8 L Glucose 122 H Calcium 8.4 01/31/18 01/31/18 07:53 07:53 Creatine Kinase 48 L CK-MB (CK-2) 1.65 Troponin I 0.163 Impressions: Chest Ultrasound 01/30/18 00:00 IMPRESSION: Pleural effusions as described. Chest X-Ray 01/30/18 13:33 IMPRESSION: Cardiomegaly. Pulmonary vascular congestion. Bilateral pleural effusions. Assessment & Plan - Diagnosis (1) Dyspnea Qualifiers: Dyspnea type: unspecified Qualified Code(s): R06.00 - Dyspnea, unspecified Is this a current diagnosis for this admission?: Yes Plan: Multifactorial Patient of a CT angiogram done 2 weeks back was all negative for any PE Get the chest ultrasounds to rule out any pleural effusions (2) Anemia in chronic kidney disease (CKD) Qualifiers: Chronic kidney disease stage: on chronic dialysis Qualified Code(s): N18.6 - End stage renal disease; D63.1 - Anemia in chronic kidney disease; D63.1 - Anemia in chronic kidney disease; Z99.2 - Dependence on renal dialysis; Z99.2 - Dependence on renal dialysis; Z99.2 - Dependence on renal dialysis; Z99.2 - Dependence on renal dialysis Is this a current diagnosis for this admission?: Yes (3) Atrial fibrillation Qualifiers: Atrial fibrillation type: chronic Qualified Code(s): I48.2 - Chronic atrial fibrillation Is this a current diagnosis for this admission?: Yes Plan: Currently on Eliquis 2.5 mg p.o. twice a day (4) Chest pain Qualifiers: Chest pain type: other chest pain Qualified Code(s): R07.89 - Other chest pain; R07.8 - Other chest pain Is this a current diagnosis for this admission?: Yes Plan: With the most likely a chest wall pain the patient on multiple risk factor we will consult to cardiology with his elevated troponin for further evaluations (5) Chronic pain syndrome Is this a current diagnosis for this admission?: Yes (6) Coronary artery disease Qualifiers: Coronary Disease-Associated Artery/Lesion type: unspecified vessel or lesion type Is this a current diagnosis for this admission?: Yes Plan: Consult cardiology (7) Diabetes mellitus Qualifiers: Diabetes mellitus type: type 2 Chronic kidney disease stage: on chronic dialysis Is this a current diagnosis for this admission?: Yes Plan: Continues to sliding-scale (8) ESRD (end stage renal disease) Is this a current diagnosis for this admission?: Yes Plan: Currently on hemodialysis consult the nephrology (9) Hypertension Qualifiers: Hypertension type: essential hypertension Is this a current diagnosis for this admission?: Yes Plan: Currently all stable (10) Pleural effusion Is this a current diagnosis for this admission?: Yes Plan: We will consult general surgery for the thoracocentesis once this recurrent pleural effusion and consult the pulmonary - Time Time Spent with patient: 15-24 minutes Medications reviewed and adjusted accordingly: Yes Anticipated discharge: Home Within: Other - Inpatient Certification Medical Necessity: Need Close Monitoring Due to Risk of Patient Decompensation, Need for IV Antibiotics Post Hospital Care: D/C Mosquito Sprayer Documentation - Plan Summary Plan Summary: Continues to current medication
--- NOTE | 2018-02-01 18:52 | PDOC PROGRESS REPORT ---
Subjective Progress Note for:: 02/01/18 Subjective:: Still has dyspnea on laying flat. Patient seems to be doing better with gradual improvement. Pt is denying any chest arm or neck discomfort. Patient denying any PND, orthopnea. Patient denied any sustained palpitations, dizziness, syncope, near syncope. Patient denying any fever chills. Patient denying any other significant discomfort. Patient is maintaining chronic atrial fibrillation. Review of systems: Rest review of systems negative. Medications: Medications have been reviewed. Reason For Visit: SOB,ESRD Physical Exam Vital Signs: Temp Pulse Resp BP Pulse Ox 98.9 F 130 H 18 91/44 L 100 02/01/18 12:56 02/01/18 14:00 02/01/18 12:56 02/01/18 12:56 02/01/18 12:56 Intake & Output 01/31/18 02/01/18 02/02/18 06:59 06:59 06:59 Intake Total 300 170 Output Total 300 Balance -300 300 170 Weight 81.3 kg 82.1 kg Exam: GENERAL: well-nourished and in no acute distress. Alert and oriented x3 HEAD: Atraumatic, normocephalic. EYES: Pupils equal round and reactive to light, extraocular movements intact, sclera anicteric, conjunctiva are normal. ENT: TMs normal, nares patent, oropharynx clear without exudates. Moist mucous membranes. No oral ulcerations or bleeding gums noted NECK: supple without lymphadenopathy. Trachea is central. No cervical or axillary lymphadenopathy noted. Carotids are 2+, JVD 10-12 cm LUNGS: Respiration seems nonlabored, no significant accessory muscle action noted. Bibasilar fine crackles and few a scattered wheezes rales or rhonchi noted. Bibasilar dullness noted on percussion. CHEST: Palpation of the chest wall shows no significant chest wall tenderness. HEART: [place], No PSH, 2/6 JORDAN aortic area, 1/6 gomez systolic murmur mitral area , no rubs, no gallops. ABDOMEN: Soft, no significant tenderness appreciated, normoactive bowel sounds. No guarding, no rebound. No rigidity noted . No masses appreciated. EXTREMITIES: Pedal pulses are 1-2+, no calf tenderness noted. No clubbing or cyanosis. 1+ pedal edema noted, right great toe amputated, 2 lateral toes amputated on the left side. AV graft noted left forearm NEUROLOGICAL: Focused neurological exam showed no significant neurologic deficit. Normal speech, no focal weakness appreciated. PSYCH: Normal mood, normal affect. Judgment and insight within normal limits. SKIN: No significant ecchymosis, skin is noted to be warm. MUSCULOSKELETAL EXAM: No significant acute joint swelling noted. Results Laboratory Results: 02/01/18 04:18 02/01/18 04:18 02/01/18 02/01/18 04:18 04:18 WBC 7.0 RBC 3.52 L Hgb 10.5 L Hct 33.5 L MCV 95 MCH 29.8 MCHC 31.3 L RDW 23.7 H Plt Count 274 Seg Neutrophils % 77.4 Lymphocytes % 7.9 L Monocytes % 8.8 Eosinophils % 4.7 Basophils % 1.2 Absolute Neutrophils 5.4 Absolute Lymphocytes 0.6 Absolute Monocytes 0.6 Absolute Eosinophils 0.3 Absolute Basophils 0.1 Sodium 137.9 Potassium 4.7 Chloride 98 Carbon Dioxide 23 Anion Gap 17 BUN 32 H Creatinine 6.86 H Est GFR ( Amer) 10 L Est GFR (Non-Af Amer) 8 L Glucose 122 H Calcium 8.4 01/31/18 01/31/18 07:53 07:53 Creatine Kinase 48 L CK-MB (CK-2) 1.65 Troponin I 0.163 EKG Comments: Shows atrial fibrillation with controlled ventricular response Impressions: Chest Ultrasound 01/30/18 00:00 IMPRESSION: Pleural effusions as described. Chest X-Ray 01/30/18 13:33 IMPRESSION: Cardiomegaly. Pulmonary vascular congestion. Bilateral pleural effusions. Assessment & Plan - Diagnosis (1) CAD (coronary artery disease) Qualifiers: Coronary Disease-Associated Artery/Lesion type: unspecified vessel or lesion type [place] vs. transplanted heart: [place] heart Associated angina: angina presence unspecified Qualified Code(s): I25.10 - Atherosclerotic heart disease of [place] coronary artery without angina pectoris Is this a current diagnosis for this admission?: Yes (2) Congestive heart failure Qualifiers: Heart failure type: unspecified Is this a current diagnosis for this admission?: Yes (3) Diabetes Qualifiers: Diabetes mellitus type: type 2 Diabetes mellitus chcf insulin use: unspecified chcf insulin use status Chronic kidney disease stage: on chronic dialysis Is this a current diagnosis for this admission?: Yes (4) Elevated troponin I level Is this a current diagnosis for this admission?: Yes (5) Hypoxemia Is this a current diagnosis for this admission?: Yes (6) PVD (peripheral vascular disease) Is this a current diagnosis for this admission?: Yes (7) Atrial fibrillation Qualifiers: Atrial fibrillation type: chronic Qualified Code(s): I48.2 - Chronic atrial fibrillation Is this a current diagnosis for this admission?: Yes (8) Diabetes mellitus Qualifiers: Diabetes mellitus type: type 2 Chronic kidney disease stage: on chronic dialysis Is this a current diagnosis for this admission?: Yes (9) ESRD (end stage renal disease) Is this a current diagnosis for this admission?: Yes (10) Hypertension Qualifiers: Hypertension type: essential hypertension Qualified Code(s): I10 - Essential (primary) hypertension Is this a current diagnosis for this admission?: Yes - Notes Notes: Patient to have dialysis today. Patient to have some fluid removed. Will consider a nuclear stress test prior to discharge. Troponin I elevation: Exact etiology not clear but could well be from hypoxemia , atrial fibrillation with RVR. Recommend optimization of underlying anti- ischemic therapy. Recommend nitrates, antiplatelets, beta blockers, high potency statins, RIZWAN inhibitor/ARB etc. Atrial fibrillation with rapid ventricular response: Recommend rate control. Beta-blockers preferred in view of CAD. Continue Eliquis therapy at current dose. CHF: Have ordered a 2D echo to evaluate underlying cause of CHF. Agree with fluid removal on dialysis. Hypoxemia: Recommend oxygen supplementation and noninvasive positive pressure ventilation as needed to maintain O2 sat over 90%. CAD: Currently without any chest pain. Will consider evaluation with a nuclear stress test once patient more stable. A 2D echocardiogram has been ordered. In the meantime we will try obtain CABG report etc. End-stage renal disease: Patient advised compliance with dialysis. Nephrology following. Hypertension: Blood pressure goal is 135/85 or less. Currently adequately controlled. 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 Recommend avoiding any hyper or hypoglycemia. PVD: Currently stable without any ongoing signs of tissue ischemia. Dyslipidemia: Recommend high potency statin therapy with LDL goal less than 70. - Time Time with patient: Greater than 35 minutes - CODE STATUS was discussed, patient remains full code. Surrogate decision-maker unchanged. Multiple medical problems were addressed. More than 50% of the time spent coordinating care, discussing management plans with involved caregivers. Management plans discussed with involved personnels. Medical decision making was of moderate to high complexity, patient's has multiple comorbidities. Medications reviewed and adjusted accordingly: Yes
[2018-02-01] MEDS: LEVOFLOXACIN 250 MG TABLET PO SCH (19:10)
--- NOTE | 2018-02-01 20:37 | PDOC PROGRESS REPORT ---
Subjective Progress Note for:: 02/01/18 Subjective:: I saw the patient during dialysis this afternoon at around 5:30 PM. He seems to be comfortable but his blood pressure has been in the low side. We backed off on her ultrafiltration because of that. Patient confirmed that he just went home from the senior living about 3 days ago. Last Tuesday he cut short his dialysis treatment because of increasing shortness of breath and he was brought here in the emergency room. His initial chest x-ray showed pulmonary vascular congestion and bilateral pleural effusion without any evidence of consolidation. He was empirically treated with IV Rocephin and oral Levaquin. Patient said that he is coughing some whitish phlegm but denies any fever. He said he still having shortness of breath and pleuritic chest pain across his chest which she has been experiencing since his CABG. Aside from lowish blood pressure he otherwise is tolerating dialysis. To increase his ultrafiltration I extended his dialysis treatment to 3-1/2 hours. Reason For Visit: SOB,ESRD Physical Exam Vital Signs: Temp Pulse Resp BP Pulse Ox 98.9 F 130 H 18 91/44 L 100 02/01/18 12:56 02/01/18 14:00 02/01/18 12:56 02/01/18 12:56 02/01/18 12:56 Intake & Output 01/31/18 02/01/18 02/02/18 06:59 06:59 06:59 Intake Total 300 170 Output Total 300 Balance -300 300 170 Weight 81.3 kg 82.1 kg Vitals during dialysis: Blood pressure 1O 6/83, heart rate of 1O9, blood flow rate of 350 mL/min, dialysate flow rate of 6 and mL per minute. Exam: General appearance: PRESENT: no acute distress, cooperative, well-developed, well-nourished Head exam: PRESENT: atraumatic, normocephalic Eye exam: PRESENT: conjunctiva pink, PERRLA. ABSENT: scleral icterus Neck exam: ABSENT: JVD Respiratory exam: PRESENT: He has bilateral crackles from mid to lower lung [place]. ABSENT: Rhonchi, unlabored, wheezes Cardiovascular exam: PRESENT: Tachycardic, regular rate rhythm -+S1, +S2. ABSENT: diastolic murmur, systolic murmur GI/Abdominal exam: PRESENT: normal bowel sounds, soft. ABSENT: guarding, mass, tenderness Extremities exam: ABSENT: No edema Neurological exam: PRESENT: alert, awake, oriented to person, place and time. Skin exam: PRESENT: dry, warm, Cardiovascular exam: PRESENT: +S1, +S2 Results Laboratory Results: 02/01/18 04:18 02/01/18 04:18 02/01/18 02/01/18 04:18 04:18 WBC 7.0 RBC 3.52 L Hgb 10.5 L Hct 33.5 L MCV 95 MCH 29.8 MCHC 31.3 L RDW 23.7 H Plt Count 274 Seg Neutrophils % 77.4 Lymphocytes % 7.9 L Monocytes % 8.8 Eosinophils % 4.7 Basophils % 1.2 Absolute Neutrophils 5.4 Absolute Lymphocytes 0.6 Absolute Monocytes 0.6 Absolute Eosinophils 0.3 Absolute Basophils 0.1 Sodium 137.9 Potassium 4.7 Chloride 98 Carbon Dioxide 23 Anion Gap 17 BUN 32 H Creatinine 6.86 H Est GFR ( Amer) 10 L Est GFR (Non-Af Amer) 8 L Glucose 122 H Calcium 8.4 01/31/18 01/31/18 07:53 07:53 Creatine Kinase 48 L CK-MB (CK-2) 1.65 Troponin I 0.163 Impressions: Chest Ultrasound 01/30/18 00:00 IMPRESSION: Pleural effusions as described. Chest X-Ray 01/30/18 13:33 IMPRESSION: Cardiomegaly. Pulmonary vascular congestion. Bilateral pleural effusions. Assessment & Plan - Diagnosis (1) ESRD (end stage renal disease) Is this a current diagnosis for this admission?: Yes Plan: We did dialysis today for 3.5 hours, using the patient's AV fistula, with 2 potassium bath, blood flow rate of 350 mL per minute, dialysate flow rate of 600 mL per minute, ultrafiltration 2-3 L as tolerated, no heparin and no Procrit during dialysis. Again ultrafiltration was limited due to hypotension. Otherwise patient tolerated the procedure well without any complications. Due to pulmonary vascular congestion and a bladder pleural effusion I will attempt to optimize ultrafiltration in the face of hypotension in this patient by doing dialysis and ultrafiltration for the next couple more days. We will repeat chest x-ray on Tuesday after 3 dialysis treatments in a row to see if there is any improvement. During thoracentesis would be risky because the patient is on anticoagulation. (2) Pulmonary vascular congestion Is this a current diagnosis for this admission?: Yes (3) Intra-dialytic hypotension Is this a current diagnosis for this admission?: Yes Plan: We will start midodrine 5 mg p.o. twice daily scheduled. Hold Toprol before dialysis. (4) Anemia in chronic kidney disease (CKD) Qualifiers: Chronic kidney disease stage: on chronic dialysis Qualified Code(s): N18.6 - End stage renal disease; D63.1 - Anemia in chronic kidney disease; D63.1 - Anemia in chronic kidney disease; Z99.2 - Dependence on renal dialysis; Z99.2 - Dependence on renal dialysis; Z99.2 - Dependence on renal dialysis; Z99.2 - Dependence on renal dialysis Is this a current diagnosis for this admission?: Yes (5) Coronary artery disease Qualifiers: Coronary Disease-Associated Artery/Lesion type: unspecified vessel or lesion type Is this a current diagnosis for this admission?: Yes (6) Pleural effusion Is this a current diagnosis for this admission?: Yes Plan: Bilateral. Cannot completely rule out underlying consolidation. Patient on empiric antibiotics. Consider cardiac cause. - Time Time with patient: 15-25 minutes
[2018-02-01] MEDS: MIRTAZAPINE 15 MG TABLET PO SCH ×2 (21:55→22:08)
[2018-02-01] MEDS: TIOTROPIUM BROMIDE DPI 5 CAP/KIT (18 MCG/CAP) IH SCH (21:56)
[2018-02-01] MEDS: FLUTICASONE/SALMETEROL DISKUS 500-50 MCG/DOSE IH SCH (21:56)
[2018-02-01] MEDS: ATORVASTATIN CALCIUM 40 MG TABLET PO SCH ×2 (21:56→22:08)
[2018-02-02] MEDS ORDERED: NORMAL SALINE 1000 ML 1,000 ML IV PRN (05:00)
[2018-02-02 05:08] LABS: ABSOLUTE BASOPHILS # (AUTO) 0.1 10^3/uL (0.0-0.2); ABSOLUTE EOSINOPHILS # (AUTO) 0.2 10^3/uL (0.0-0.6); ABSOLUTE LYMPHOCYTES (AUTO) 0.5 10^3/uL (0.5-4.7); ABSOLUTE MONOCYTES (AUTO) 0.7 10^3/uL (0.1-1.4); ABSOLUTE NEUT (AUTO) 3.4 10^3/uL (1.7-8.2); BASOPHILS % (AUTO) 1.1 % (0-2); HEMATOCRIT 31.7 % (37.9-51.0); MEAN CORPUSCULAR HEMOGLOBIN 29.7 pg (27.0-33.4); MEAN CORPUSCULAR HGB CONC 31.5 g/dL (32.0-36.0); MEAN CORPUSCULAR VOLUME 94 fl (80-97); MONOCYTES % (AUTO) 13.6 % (3-13); PLATELET COUNT 261 10^3/uL (150-450); RED BLOOD COUNT 3.36 10^6/uL (4.35-5.55); RED CELL DISTRIBUTION WIDTH 23.9 % (11.5-14.0); SEGMENTED NEUTROPHILS % (AUTO) 69.3 % (42-78); TOTAL CELLS COUNTED % (AUTO) 100 %; WHITE BLOOD COUNT 4.9 10^3/uL (4.0-10.5)
[2018-02-02 05:25] LABS: ANION GAP 14 (5-19); BLOOD UREA NITROGEN 19 mg/dL (7-20); CALCIUM 9.3 mg/dL (8.4-10.2); CARBON DIOXIDE 30 mmol/L (22-30); CHLORIDE 97 mmol/L (98-107); GLUCOSE 93 mg/dL (75-110); SODIUM 140.9 mmol/L (137-145)
[2018-02-02] MEDS: CALCIUM ACETATE 667 MG CAPSULE PO SCH ×3 (06:31→22:32)
[2018-02-02] MEDS: LANSOPRAZOLE 30 MG TAB.RAP.DR PO SCH (06:31)
--- NOTE | 2018-02-02 09:05 | PDOC PROGRESS REPORT ---
Subjective Progress Note for:: 02/02/18 Subjective:: Patient is currently doing fair She has denied any chest pain Denied any shortness of the brain while sitting but patients lay down patients feel short of breath Patient is otherwise as she is on no other complaints Reason For Visit: SOB,ESRD Physical Exam Vital Signs: Temp Pulse Resp BP Pulse Ox 98.1 F 93 16 137/59 H 93 02/02/18 07:18 02/02/18 07:18 02/02/18 07:18 02/02/18 07:18 02/02/18 07:18 Intake & Output 02/01/18 02/02/18 02/03/18 06:59 06:59 06:59 Intake Total 300 370 Output Total 2800 Balance 300 -2430 Weight 82.1 kg 83.4 kg General appearance: PRESENT: no acute distress, well-developed, well-nourished Head exam: PRESENT: atraumatic, normocephalic Eye exam: PRESENT: conjunctiva pink, EOMI, PERRLA. ABSENT: scleral icterus Ear exam: PRESENT: normal external ear exam Mouth exam: PRESENT: moist, tongue midline Neck exam: PRESENT: full ROM. ABSENT: carotid bruit, JVD, lymphadenopathy, thyromegaly Respiratory exam: PRESENT: clear to auscultation john Cardiovascular exam: PRESENT: RRR. ABSENT: diastolic murmur, rubs, systolic murmur Pulses: PRESENT: normal dorsalis pedis pul, +2 pedal pulses bilateral Vascular exam: PRESENT: normal capillary refill GI/Abdominal exam: PRESENT: normal bowel sounds, soft. ABSENT: distended, guarding, mass, organolmegaly, rebound, tenderness Rectal exam: PRESENT: deferred Musculoskeletal exam: PRESENT: ambulatory Neurological exam: PRESENT: alert, awake, oriented to person, oriented to place , oriented to time, oriented to situation, CN II-XII grossly intact. ABSENT: motor sensory deficit Psychiatric exam: PRESENT: appropriate affect, normal mood. ABSENT: homicidal ideation, suicidal ideation Skin exam: PRESENT: dry, intact, warm. ABSENT: cyanosis, rash Results Laboratory Results: 02/02/18 04:20 02/02/18 04:20 02/02/18 02/02/18 04:20 04:20 WBC 4.9 RBC 3.36 L Hgb 10.0 L Hct 31.7 L MCV 94 MCH 29.7 MCHC 31.5 L RDW 23.9 H Plt Count 261 Seg Neutrophils % 69.3 Lymphocytes % 11.0 L Monocytes % 13.6 H Eosinophils % 5.0 Basophils % 1.1 Absolute Neutrophils 3.4 Absolute Lymphocytes 0.5 Absolute Monocytes 0.7 Absolute Eosinophils 0.2 Absolute Basophils 0.1 Sodium 140.9 Potassium 4.0 Chloride 97 L Carbon Dioxide 30 Anion Gap 14 BUN 19 Creatinine 4.70 H Est GFR ( Amer) 15 L Est GFR (Non-Af Amer) 13 L Glucose 93 Calcium 9.3 01/31/18 01/31/18 07:53 07:53 Creatine Kinase 48 L CK-MB (CK-2) 1.65 Troponin I 0.163 Impressions: Chest Ultrasound 01/30/18 00:00 IMPRESSION: Pleural effusions as described. Chest X-Ray 01/30/18 13:33 IMPRESSION: Cardiomegaly. Pulmonary vascular congestion. Bilateral pleural effusions. Assessment & Plan - Diagnosis (1) Dyspnea Qualifiers: Dyspnea type: unspecified Qualified Code(s): R06.00 - Dyspnea, unspecified Is this a current diagnosis for this admission?: Yes Plan: The continues to hemodialysis (2) Anemia in chronic kidney disease (CKD) Qualifiers: Chronic kidney disease stage: on chronic dialysis Qualified Code(s): N18.6 - End stage renal disease; D63.1 - Anemia in chronic kidney disease; D63.1 - Anemia in chronic kidney disease; Z99.2 - Dependence on renal dialysis; Z99.2 - Dependence on renal dialysis; Z99.2 - Dependence on renal dialysis; Z99.2 - Dependence on renal dialysis Is this a current diagnosis for this admission?: Yes (3) Atrial fibrillation Qualifiers: Atrial fibrillation type: chronic Qualified Code(s): I48.2 - Chronic atrial fibrillation Is this a current diagnosis for this admission?: Yes Plan: Currently on Eliquis 2.5 mg p.o. twice a day (4) Chest pain Qualifiers: Chest pain type: other chest pain Qualified Code(s): R07.89 - Other chest pain; R07.8 - Other chest pain Is this a current diagnosis for this admission?: Yes Plan: With the most likely a chest wall pain the patient on multiple risk factor we will consult to cardiology with his elevated troponin for further evaluations (5) Chronic pain syndrome Is this a current diagnosis for this admission?: Yes (6) Coronary artery disease Qualifiers: Coronary Disease-Associated Artery/Lesion type: unspecified vessel or lesion type Is this a current diagnosis for this admission?: Yes Plan: Consult cardiology (7) Diabetes mellitus Qualifiers: Diabetes mellitus type: type 2 Chronic kidney disease stage: on chronic dialysis Is this a current diagnosis for this admission?: Yes Plan: Continues to sliding-scale (8) ESRD (end stage renal disease) Is this a current diagnosis for this admission?: Yes Plan: Currently on hemodialysis consult the nephrology (9) Hypertension Qualifiers: Hypertension type: essential hypertension Is this a current diagnosis for this admission?: Yes Plan: Currently all stable (10) Pleural effusion Is this a current diagnosis for this admission?: Yes Plan: According to the surgeon's patient is a not a candidate for chest tubes as per nephrology not patients getting the dialysis every day we will repeat the chest x-ray in the morning - Time Time Spent with patient: 15-24 minutes Medications reviewed and adjusted accordingly: Yes Anticipated discharge: Home Within: Other - Inpatient Certification Medical Necessity: Need Close Monitoring Due to Risk of Patient Decompensation Post Hospital Care: D/C [employer] Consultant Documentation - Plan Summary Plan Summary: Continues to current medication
[2018-02-02] MEDS: CEFTRIAXONE SODIUM 750 MG in DEXTROSE 5%-WATER 50 ML IV SCH (13:03)
[2018-02-02] MEDS: MIDODRINE HCL 5 MG TABLET PO SCH ×2 (13:03→17:03)
[2018-02-02] MEDS: CLOPIDOGREL BISULFATE 75 MG TABLET PO SCH (13:04)
[2018-02-02] MEDS: GABAPENTIN 100 MG CAPSULE PO SCH ×2 (13:04→22:31)
[2018-02-02] MEDS: FERROUS SULFATE 325 MG TABLET PO SCH (13:04)
[2018-02-02] MEDS: TIOTROPIUM BROMIDE DPI 5 CAP/KIT (18 MCG/CAP) IH SCH (13:04)
[2018-02-02] MEDS: FLUTICASONE/SALMETEROL DISKUS 500-50 MCG/DOSE IH SCH ×2 (13:04→22:30)
--- NOTE | 2018-02-02 15:21 | CONSULTATION REPORT E ---
Consultation Report NAME: CHAPITO LESLIE : 1955 AGE: 62Y DATE: 02/01/2018 538 A TO: MARYAM CARDONA M.D. FROM: FEI ZULETA M.D. Requesting Physician The patient is a 62-year-old male who came in with increasing shortness of breath over the last few days. Patient has chronic kidney disease and on hemodialysis. The patient had recent bypass at [facility] x3 vessels in October 2017. Patient recurrent pleural effusion in the past resulted because of the pleural effusion. Patient denies any fever, chills. Has increasing cough with no sputum production, no hemoptysis. Currently the patient is on Eliquis and Plavix. PAST MEDICAL HISTORY: 1. History of atrial fibrillation. 2. Congestive heart failure. 3. Coronary artery disease. 4. Myocardial infarction. 5. Hypertension. 6. Peripheral vascular disease. 7. Patient also with diabetes. 8. End-stage renal disease, dialysis dependent. PAST SURGICAL HISTORY: 1. Cardiac cath. 2. Coronary artery bypass graft x3 vessels, October 2017. 3. Right big toe amputation in 2014. 4. Left third and fourth toe amputation. 5. Vascular surgery. 6. Cervical laminectomy in 2012. SOCIAL HISTORY: Patient is a smoker. Smokes about 1-3 packs per day for about 20 years. Drinks alcohol occasionally. Denies illicit drug use. FAMILY HISTORY: Reviewed but not present history of coronary artery disease, hypertension, malignancy. MEDICATIONS: Include: 1. Tylenol. 2. Eliquis. 3. Lipitor. 4. Calcium. 5. Plavix. 6. Ferrous sulfate. 7. Gabapentin. 8. Remeron. 10. Oxycodone. 11. Pantoprazole. 12. Rozerem. ALLERGIES: VANCOMYCIN. REVIEW OF SYSTEMS: CONSTITUTIONAL: Complained about fatigue, weakness. Denies any fever or chills, headache or weight gain. EYES: No visual disturbances. No jaundice. EAR, NOSE AND THROAT: No ear drainage. No nasal discharge. RESPIRATORY: Complained about increased shortness of breath, coughing nonproductive. No chest pain. CARDIOVASCULAR: History of CABG. History of congestive heart failure. GASTROINTESTINAL: No nausea, vomiting, diarrhea. GENITOURINARY: No dysuria or hematuria. EXTREMITIES: No joint swelling, no cellulitis. Positive nail clubbing on the fingernails. PHYSICAL EXAMINATION: GENERAL: The patient is awake, alert, coherent, oriented x3. VITAL SIGNS: Afebrile. Slightly short of breath. Slight respiratory distress with temperature of 98.9 with a T-max of 98.9. Heart rate of 130, blood pressure is 91/44, saturation is 100% on 3 L. EYES: No jaundice or pallor. EARS, NOSE, AND THROAT: No ear drainage noted. No nasal discharge. HEAD AND NECK: No scalp swelling and no neck tenderness. CHEST/LUNGS: No wheezing, no rhonchi, no coarse crackles. CARDIOVASCULAR: S1 and S2 is distinct. Normal rate, regular rhythm. ABDOMEN: Flabby, positive bowel sounds. Soft, nondistended, nontender. EXTREMITIES: No joint swelling, no cellulitis. LABORATORY DATA: Chest x-ray done 2 days ago showed a bilateral pleural effusion, mild to moderate in amount. May be loculated as well. Ultrasound of the right chest showed mild to moderate pleural effusion. PLAN/RECOMMENDATION: 1. Spoke to Nephrology, Dr. Elizondo, and she plans to do dialysis to try to remove the pleural fluid out. 2. Will do a thoracentesis after holding the Plavix and the Eliquis for about 5 days to prevent significant bleeding complications. Will need to consult Cardiology if they are comfortable holding the Eliquis and the Plavix together for 5 days. Increases risk of excessive bleeding during and after thoracentesis. 3. Will start patient on Advair 500 mcg 1 puff BID daily and will start spiriva inhaler one capsule daily and continue nebulizer treatment as needed. DICTATING PHYSICIAN: MARYAM CARDONA MD,HIEN,MPH [id number] PHY#: [id number] ID: [id number] JOB#: [id number] ACCT: [id number] cc:MARYAM CARDONA M.D. > TIERA
[2018-02-02] MEDS: LEVOFLOXACIN 250 MG TABLET PO SCH (17:03)
--- NOTE | 2018-02-02 17:47 | PDOC PROGRESS REPORT ---
Subjective Progress Note for:: 02/02/18 Subjective:: I saw the patient on dialysis at around 10 AM this morning. He said is feeling better and seems to be breathing better. He continues to have not very good appetite. His blood pressure was a little higher during dialysis this morning. Dialysis went on without any complications. We also did about 1 hour and 45 minutes of isolated ultrafiltration. Reason For Visit: SOB,ESRD Physical Exam Vital Signs: Temp Pulse Resp BP Pulse Ox 99.0 F 62 12 102/66 100 02/02/18 15:25 02/02/18 15:25 02/02/18 15:25 02/02/18 15:25 02/02/18 15:25 Intake & Output 02/01/18 02/02/18 02/03/18 06:59 06:59 06:59 Intake Total 300 370 674 Output Total 2800 4700 Balance 300 -7800 -4028 Weight 82.1 kg 83.4 kg Vitals during dialysis: Blood pressure 181/82 and 152/53, heart rate of 75, blood flow rate of 450 mL/min, dialysate flow rate of 600 mL/min, oxygen saturation 100% with oxygen of 2 L which is an improvement from yesterday. Exam: General appearance: PRESENT: no acute distress, cooperative, well-developed, well-nourished Head exam: PRESENT: atraumatic, normocephalic Eye exam: PRESENT: conjunctiva pale, PERRLA. ABSENT: scleral icterus Neck exam: ABSENT: JVD Respiratory exam: PRESENT: Diminished breath sounds. Bilateral mid to lower lung field crackles ABSENT: Rhonchi, unlabored, wheezes Cardiovascular exam: PRESENT: Regular rate rhythm -+S1, +S2. ABSENT: diastolic murmur, systolic murmur GI/Abdominal exam: PRESENT: normal bowel sounds, soft. ABSENT: guarding, mass, tenderness Extremities exam: ABSENT: No edema Neurological exam: PRESENT: alert, awake, oriented to person, place and time. Skin exam: PRESENT: dry, warm, Cardiovascular exam: PRESENT: +S1, +S2 GI/Abdominal exam: PRESENT: normal bowel sounds, soft. ABSENT: organomegaly, tenderness Results Laboratory Results: 02/02/18 04:20 02/02/18 04:20 02/02/18 02/02/18 04:20 04:20 WBC 4.9 RBC 3.36 L Hgb 10.0 L Hct 31.7 L MCV 94 MCH 29.7 MCHC 31.5 L RDW 23.9 H Plt Count 261 Seg Neutrophils % 69.3 Lymphocytes % 11.0 L Monocytes % 13.6 H Eosinophils % 5.0 Basophils % 1.1 Absolute Neutrophils 3.4 Absolute Lymphocytes 0.5 Absolute Monocytes 0.7 Absolute Eosinophils 0.2 Absolute Basophils 0.1 Sodium 140.9 Potassium 4.0 Chloride 97 L Carbon Dioxide 30 Anion Gap 14 BUN 19 Creatinine 4.70 H Est GFR ( Amer) 15 L Est GFR (Non-Af Amer) 13 L Glucose 93 Calcium 9.3 01/31/18 01/31/18 07:53 07:53 Creatine Kinase 48 L CK-MB (CK-2) 1.65 Troponin I 0.163 Impressions: Chest Ultrasound 01/30/18 00:00 IMPRESSION: Pleural effusions as described. Chest X-Ray 01/30/18 13:33 IMPRESSION: Cardiomegaly. Pulmonary vascular congestion. Bilateral pleural effusions. Assessment & Plan - Diagnosis (1) ESRD (end stage renal disease) Is this a current diagnosis for this admission?: Yes Plan: We did isolated ultrafiltration and dialysis today for 3-1/2 hours, using the patient's AV fistula, with 3 potassium bath, blood flow rate of 450 mL per minute, dialysate flow rate of 600 mL per minute, ultrafiltration 45 L as tolerated, no heparin and no Procrit during dialysis. Total ultrafiltration at the end of treatment was 4.7 L. Patient tolerated dialysis as well as ultrafiltration well. Next dialysis will be tomorrow with ultrafiltration as well. (2) Pulmonary vascular congestion Is this a current diagnosis for this admission?: Yes (3) Intra-dialytic hypotension Is this a current diagnosis for this admission?: Yes Plan: We will start Midodrine 5 mg p.o. twice daily scheduled. Hold Toprol before dialysis. (4) Anemia in chronic kidney disease (CKD) Qualifiers: Chronic kidney disease stage: on chronic dialysis Qualified Code(s): N18.6 - End stage renal disease; D63.1 - Anemia in chronic kidney disease; D63.1 - Anemia in chronic kidney disease; Z99.2 - Dependence on renal dialysis; Z99.2 - Dependence on renal dialysis; Z99.2 - Dependence on renal dialysis; Z99.2 - Dependence on renal dialysis Is this a current diagnosis for this admission?: Yes (5) Coronary artery disease Qualifiers: Coronary Disease-Associated Artery/Lesion type: unspecified vessel or lesion type Is this a current diagnosis for this admission?: Yes (6) Pleural effusion Is this a current diagnosis for this admission?: Yes Plan: Bilateral. Cannot completely rule out underlying consolidation. Patient on empiric antibiotics. Consider cardiac cause. Pulmonary also on board.
[2018-02-02] MEDS: OXYCODONE-ACETAMINOPHEN 5-325 MG TABLET PO PRN (17:52)
--- NOTE | 2018-02-02 18:43 | PDOC PROGRESS REPORT ---
Subjective Progress Note for:: 02/02/18 Subjective:: Patient was seen on dialysis. Noted to be doing reasonably well. Patient had dialysis yesterday and again having today and is planning to have it tomorrow as well. Patient is now able to lay flat. Have therefore gone ahead and schedule patient for a nuclear stress test for tomorrow. Patient seems to be doing better with gradual improvement. Pt is denying any chest arm or neck discomfort. Patient denying any PND, orthopnea. Patient denied any sustained palpitations, dizziness, syncope, near syncope. Patient denying any fever chills. Patient denying any other significant discomfort. Patient is maintaining chronic atrial fibrillation. Review of systems: Rest review of systems negative. Medications: Medications have been reviewed.. Reason For Visit: SOB,ESRD Physical Exam Vital Signs: Temp Pulse Resp BP Pulse Ox 99.0 F 62 12 102/66 100 02/02/18 15:25 02/02/18 15:25 02/02/18 15:25 02/02/18 15:25 02/02/18 15:25 Intake & Output 02/01/18 02/02/18 02/03/18 06:59 06:59 06:59 Intake Total 300 370 674 Output Total 2800 4700 Balance 300 -2430 -4026 Weight 82.1 kg 83.4 kg Exam: GENERAL: well-nourished and in no acute distress. Alert and oriented x3 HEAD: Atraumatic, normocephalic. EYES: Pupils equal round and reactive to light, extraocular movements intact, sclera anicteric, conjunctiva are normal. ENT: TMs normal, nares patent, oropharynx clear without exudates. Moist mucous membranes. No oral ulcerations or bleeding gums noted NECK: supple without lymphadenopathy. Trachea is central. No cervical or axillary lymphadenopathy noted. Carotids are 2+, JVD 10-12 cm LUNGS: Respiration seems nonlabored, no significant accessory muscle action noted. Bibasilar fine crackles and few a scattered wheezes rales or rhonchi noted. Bibasilar dullness noted on percussion. CHEST: Palpation of the chest wall shows no significant chest wall tenderness. HEART: [place] [employer], No PSH, 2/6 JORDAN aortic area, 1/6 gomez systolic murmur mitral area , no rubs, no gallops. ABDOMEN: Soft, no significant tenderness appreciated, normoactive bowel sounds. No guarding, no rebound. No rigidity noted . No masses appreciated. EXTREMITIES: Pedal pulses are 1-2+, no calf tenderness noted. No clubbing or cyanosis. 1+ pedal edema noted, right great toe amputated, 2 lateral toes amputated on the left side. AV graft noted left forearm NEUROLOGICAL: Focused neurological exam showed no significant neurologic deficit. Normal speech, no focal weakness appreciated. PSYCH: Normal mood, normal affect. Judgment and insight within normal limits. SKIN: No significant ecchymosis, skin is noted to be warm. MUSCULOSKELETAL EXAM: No significant acute joint swelling noted. Results Laboratory Results: 02/02/18 04:20 02/02/18 04:20 02/02/18 02/02/18 04:20 04:20 WBC 4.9 RBC 3.36 L Hgb 10.0 L Hct 31.7 L MCV 94 MCH 29.7 MCHC 31.5 L RDW 23.9 H Plt Count 261 Seg Neutrophils % 69.3 Lymphocytes % 11.0 L Monocytes % 13.6 H Eosinophils % 5.0 Basophils % 1.1 Absolute Neutrophils 3.4 Absolute Lymphocytes 0.5 Absolute Monocytes 0.7 Absolute Eosinophils 0.2 Absolute Basophils 0.1 Sodium 140.9 Potassium 4.0 Chloride 97 L Carbon Dioxide 30 Anion Gap 14 BUN 19 Creatinine 4.70 H Est GFR ( Amer) 15 L Est GFR (Non-Af Amer) 13 L Glucose 93 Calcium 9.3 01/31/18 01/31/18 07:53 07:53 Creatine Kinase 48 L CK-MB (CK-2) 1.65 Troponin I 0.163 EKG Comments: Telemetry shows atrial fibrillation with controlled ventricular response Impressions: Chest Ultrasound 01/30/18 00:00 IMPRESSION: Pleural effusions as described. Chest X-Ray 01/30/18 13:33 IMPRESSION: Cardiomegaly. Pulmonary vascular congestion. Bilateral pleural effusions. Assessment & Plan - Diagnosis (1) CAD (coronary artery disease) Qualifiers: Coronary Disease-Associated Artery/Lesion type: unspecified vessel or lesion type [place] vs. transplanted heart: [place] heart Associated angina: angina presence unspecified Qualified Code(s): I25.10 - Atherosclerotic heart disease of [place] coronary artery without angina pectoris Is this a current diagnosis for this admission?: Yes (2) Congestive heart failure Qualifiers: Heart failure type: unspecified Is this a current diagnosis for this admission?: Yes (3) Diabetes Qualifiers: Diabetes mellitus type: type 2 Diabetes mellitus skilled nursing insulin use: unspecified skilled nursing insulin use status Chronic kidney disease stage: on chronic dialysis Is this a current diagnosis for this admission?: Yes (4) Dyspnea Qualifiers: Dyspnea type: unspecified Qualified Code(s): R06.00 - Dyspnea, unspecified Is this a current diagnosis for this admission?: Yes (5) Elevated troponin I level Is this a current diagnosis for this admission?: Yes (6) Hypoxemia Is this a current diagnosis for this admission?: Yes (7) PVD (peripheral vascular disease) Is this a current diagnosis for this admission?: Yes (8) ESRD (end stage renal disease) Is this a current diagnosis for this admission?: Yes - Notes Notes: Patient seen on dialysis today. Is having some fluid removed. Was noted to have intermittently elevated blood pressure. Patient now claims able to lay flat. Patient being scheduled for a nuclear stress test for tomorrow. 2D echo results reviewed. It showed low normal to mildly depressed LVEF, significant LVH, also RV dysfunction noted. Troponin I elevation: Exact etiology not clear but could well be from hypoxemia , atrial fibrillation with RVR. Recommend optimization of underlying anti- ischemic therapy. Recommend nitrates, antiplatelets, beta blockers, high potency statins, RIZWAN inhibitor/ARB etc. Patient to be scheduled for a nuclear stress test prior to discharge. Atrial fibrillation with rapid ventricular response: Recommend rate control. Beta-blockers preferred in view of CAD. Continue Eliquis therapy at current dose. CHF: Have ordered a 2D echo to evaluate underlying cause of CHF. Agree with fluid removal on dialysis. Hypoxemia: Recommend oxygen supplementation and noninvasive positive pressure ventilation as needed to maintain O2 sat over 90%. CAD: Currently without any chest pain. Will consider evaluation with a nuclear stress test once patient more stable. A 2D echocardiogram has been ordered. In the meantime we will try obtain CABG report etc. End-stage renal disease: Patient advised compliance with dialysis. Nephrology following. Hypertension: Blood pressure goal is 135/85 or less. Currently adequately controlled. Diabetes: Being well managed by primary care pediatrician. Recommend avoiding any hyper or hypoglycemia. PVD: Currently stable without any ongoing signs of tissue ischemia. Dyslipidemia: Recommend high potency statin therapy with LDL goal less than 70. - Time Time with patient: 15-25 minutes - CODE STATUS was discussed, patient remains full code. Surrogate decision-maker unchanged. Multiple medical problems were addressed. More than 50% of the time spent coordinating care, discussing management plans with involved caregivers. Management plans discussed with involved personnels. Medical decision making was of moderate to high complexity , patient's has multiple comorbidities. Medications reviewed and adjusted accordingly: Yes
--- NOTE | 2018-02-02 22:21 | PROGRESS NOTE E ---
Progress Note NAME: CHAPITO LESLIE : 1955 AGE: 62Y DATE: 02/02/2018 ROOM: 538 SUBJECTIVE: The patient is a 62-year-old male who came in with increased shortness of breath. The patient has chronic kidney disease on hemodialysis and has history of congestive heart failure and pleural effusion. Consulted because of possible a thoracentesis of the pleural effusion. The patient is on Plavix and Eliquis, and the patient has been doing hemodialysis. The patient had hemodialysis yesterday and another hemodialysis today, which seemed to improve his dyspnea symptoms. The patient was started on Spiriva inhaler and Advair 500 Diskhaler also yesterday. The patient claimed that he is feeling a lot better. Denies any fever, chills, increased cough, or purulent sputum production. No hemoptysis. OBJECTIVE: GENERAL: The patient at this time is awake, alert, coherent, afebrile, not in apparent severe distress. VITAL SIGNS: With temperature of 99 degrees Fahrenheit with a temperature maximum of 99 degrees Fahrenheit. Blood pressure is 102/66. Heart rate is 62. Respiratory rate is 12. Saturation is 100% on 2 liters nasal cannula. EYES: No jaundice or pallor. EARS, NOSE, AND THROAT: No ear drainage. No nasal discharge. CHEST AND LUNGS: No wheezing. No rhonchi. No coarse crackles. CARDIOVASCULAR: S1, S2 distinct. Normal rate. Regular rhythm. ABDOMEN: Flabby, positive bowel sounds, soft, nondistended, nontender. EXTREMITIES: No joint swelling. No cellulitis. LABORATORY: CBC done today showed white count of 4.9, hemoglobin is 10, hematocrit is 31.7, platelet count is 261,000. Chemistry done today showed sodium is 140, potassium is 4, chloride 97, CO2 is 30, creatinine is 4.7, glucose 93, and calcium is 9.3. ASSESSMENT AND PLAN: 1. PLEURAL EFFUSION, PROBABLY MILD TO MODERATE, BILATERAL, MORE ON THE LEFT THAN ON THE RIGHT SIDE, APPEARED IMPROVING ON HEMODIALYSIS. The patient does not need urgent thoracentesis. The amount of the pleural effusion on the left would not cause severe dyspnea. But hemodialysis will help. This is a trapped lung post CABG and high chance of recurrence following thoracentesis. If thoracentesis is deemed urgently needed, we need to hold eliquis and plavix for 5 days. However, patient is currently feeling better and breathing better. 2. COPD PLUS ASTHMA. Currently being treated for COPD and asthma. The patient seems to be breathing better. Will continue both Advair and Spiriva for now. 3. HYPOXEMIA. Recommend home oxygen therapy evaluation prior to discharge. RECOMMENDATIONS: Pulmonary Clinic followup in 2 to 3 weeks following hospital discharge. DICTATING PHYSICIAN: MARYAM CARDONA MD,HIEN,MPH [id number] PHY#: [id number] ID: [id number] JOB#: [id number] ACCT: [id number] cc:MARYAM CARDONA M.D. > MTDD
[2018-02-02] MEDS: MIRTAZAPINE 15 MG TABLET PO SCH (22:31)
[2018-02-02] MEDS: APIXABAN 2.5 MG TABLET PO SCH (22:31)
[2018-02-02] MEDS: ATORVASTATIN CALCIUM 40 MG TABLET PO SCH (22:31)
[2018-02-03] MEDS ORDERED: NORMAL SALINE 1000 ML 1,000 ML IV PRN (05:00)
[2018-02-03 05:29] LABS: HEMATOCRIT 33.5 % (37.9-51.0); HEMOGLOBIN 10.5 g/dL (13.5-17.0); MEAN CORPUSCULAR HEMOGLOBIN 29.8 pg (27.0-33.4); MEAN CORPUSCULAR HGB CONC 31.3 g/dL (32.0-36.0); MEAN CORPUSCULAR VOLUME 95 fl (80-97); PLATELET COUNT 248 10^3/uL (150-450); RED BLOOD COUNT 3.51 10^6/uL (4.35-5.55); RED CELL DISTRIBUTION WIDTH 23.9 % (11.5-14.0)
[2018-02-03 06:00] LABS: ANION GAP 13 (5-19); BLOOD UREA NITROGEN 22 mg/dL (7-20); CALCIUM 9.4 mg/dL (8.4-10.2); CARBON DIOXIDE 31 mmol/L (22-30); CHLORIDE 97 mmol/L (98-107); GLUCOSE 134 mg/dL (75-110); POTASSIUM 4.2 mmol/L (3.6-5.0); SODIUM 140.9 mmol/L (137-145)
[2018-02-03] MEDS: LANSOPRAZOLE 30 MG TAB.RAP.DR PO SCH (06:47)
[2018-02-03] MEDS: CALCIUM ACETATE 667 MG CAPSULE PO SCH ×3 (06:47→21:15)
--- NOTE | 2018-02-03 08:24 | PDOC PROGRESS REPORT ---
Subjective Progress Note for:: 02/03/18 Subjective:: Patient is currently doing well\ Patient's denied any chest pain denied any shortness of the breath Patients as per the pulmonary no need for thoracocentesis Patient is probably need home oxygen's Patient is currently on hemodialysis Reason For Visit: SOB,ESRD Physical Exam Vital Signs: Temp Pulse Resp BP Pulse Ox 98.3 F 84 16 154/74 H 95 02/03/18 04:00 02/03/18 07:00 02/03/18 04:00 02/03/18 04:00 02/03/18 04:00 Intake & Output 02/02/18 02/03/18 02/04/18 06:59 06:59 06:59 Intake Total 370 1024 Output Total 2800 4700 Balance -2430 -3676 Weight 83.4 kg General appearance: PRESENT: no acute distress, well-developed, well-nourished Head exam: PRESENT: atraumatic, normocephalic Eye exam: PRESENT: conjunctiva pink, EOMI, PERRLA. ABSENT: scleral icterus Ear exam: PRESENT: normal external ear exam Mouth exam: PRESENT: moist, tongue midline Neck exam: PRESENT: full ROM. ABSENT: carotid bruit, JVD, lymphadenopathy, thyromegaly Respiratory exam: PRESENT: clear to auscultation john Cardiovascular exam: PRESENT: RRR. ABSENT: diastolic murmur, rubs, systolic murmur Pulses: PRESENT: normal dorsalis pedis pul, +2 pedal pulses bilateral Vascular exam: PRESENT: normal capillary refill GI/Abdominal exam: PRESENT: normal bowel sounds, soft. ABSENT: distended, guarding, mass, organolmegaly, rebound, tenderness Rectal exam: PRESENT: deferred Extremities exam: ABSENT: pedal edema Musculoskeletal exam: PRESENT: ambulatory Neurological exam: PRESENT: alert, awake, oriented to person, oriented to place , oriented to time, oriented to situation, CN II-XII grossly intact. ABSENT: motor sensory deficit Psychiatric exam: PRESENT: appropriate affect, normal mood. ABSENT: homicidal ideation, suicidal ideation Skin exam: PRESENT: dry, intact, warm. ABSENT: cyanosis, rash Results Laboratory Results: 02/03/18 04:34 02/03/18 04:34 02/03/18 02/03/18 04:34 04:34 WBC 5.0 RBC 3.51 L Hgb 10.5 L Hct 33.5 L MCV 95 MCH 29.8 MCHC 31.3 L RDW 23.9 H Plt Count 248 Sodium 140.9 Potassium 4.2 Chloride 97 L Carbon Dioxide 31 H Anion Gap 13 BUN 22 H Creatinine 4.88 H Est GFR ( Amer) 15 L Est GFR (Non-Af Amer) 12 L Glucose 134 H Calcium 9.4 01/31/18 01/31/18 07:53 07:53 Creatine Kinase 48 L CK-MB (CK-2) 1.65 Troponin I 0.163 Impressions: Chest Ultrasound 01/30/18 00:00 IMPRESSION: Pleural effusions as described. Chest X-Ray 01/30/18 13:33 IMPRESSION: Cardiomegaly. Pulmonary vascular congestion. Bilateral pleural effusions. Assessment & Plan - Diagnosis (1) Dyspnea Qualifiers: Dyspnea type: unspecified Qualified Code(s): R06.00 - Dyspnea, unspecified Is this a current diagnosis for this admission?: Yes Plan: Currently all improving (2) Anemia in chronic kidney disease (CKD) Qualifiers: Chronic kidney disease stage: on chronic dialysis Qualified Code(s): N18.6 - End stage renal disease; D63.1 - Anemia in chronic kidney disease; D63.1 - Anemia in chronic kidney disease; Z99.2 - Dependence on renal dialysis; Z99.2 - Dependence on renal dialysis; Z99.2 - Dependence on renal dialysis; Z99.2 - Dependence on renal dialysis Is this a current diagnosis for this admission?: Yes (3) Atrial fibrillation Qualifiers: Atrial fibrillation type: chronic Qualified Code(s): I48.2 - Chronic atrial fibrillation Is this a current diagnosis for this admission?: Yes Plan: Currently on Eliquis 2.5 mg p.o. twice a day (4) Chest pain Qualifiers: Chest pain type: other chest pain Qualified Code(s): R07.89 - Other chest pain; R07.8 - Other chest pain Is this a current diagnosis for this admission?: Yes Plan: he is scheduled for the stress test (5) Chronic pain syndrome Is this a current diagnosis for this admission?: Yes (6) Coronary artery disease Qualifiers: Coronary Disease-Associated Artery/Lesion type: unspecified vessel or lesion type Is this a current diagnosis for this admission?: Yes Plan: Consult cardiology (7) Diabetes mellitus Qualifiers: Diabetes mellitus type: type 2 Chronic kidney disease stage: on chronic dialysis Is this a current diagnosis for this admission?: Yes Plan: Continues to sliding-scale (8) ESRD (end stage renal disease) Is this a current diagnosis for this admission?: Yes Plan: Currently on hemodialysis consult the nephrology (9) Hypertension Qualifiers: Hypertension type: essential hypertension Qualified Code(s): I10 - Essential (primary) hypertension Is this a current diagnosis for this admission?: Yes Plan: Currently all stable (10) Pleural effusion Is this a current diagnosis for this admission?: Yes Plan: Will repeat the chest x-ray today - Time Time Spent with patient: 15-24 minutes Medications reviewed and adjusted accordingly: Yes Anticipated discharge: Home Within: within 24 hours - Inpatient Certification Medical Necessity: Need Close Monitoring Due to Risk of Patient Decompensation 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
[2018-02-03] MEDS: MIDODRINE HCL 5 MG TABLET PO SCH ×2 (09:00→18:47)
[2018-02-03] MEDS: CEFTRIAXONE SODIUM 750 MG in DEXTROSE 5%-WATER 50 ML IV SCH (12:43)
[2018-02-03] MEDS: GABAPENTIN 100 MG CAPSULE PO SCH ×2 (12:44→21:15)
[2018-02-03] MEDS: FLUTICASONE/SALMETEROL DISKUS 500-50 MCG/DOSE IH SCH ×2 (12:44→21:18)
[2018-02-03] MEDS: OXYCODONE-ACETAMINOPHEN 5-325 MG TABLET PO PRN ×2 (12:44→20:24)
[2018-02-03] MEDS: TIOTROPIUM BROMIDE DPI 5 CAP/KIT (18 MCG/CAP) IH SCH (12:45)
[2018-02-03] MEDS: APIXABAN 2.5 MG TABLET PO SCH ×2 (12:45→21:15)
[2018-02-03] MEDS: CLOPIDOGREL BISULFATE 75 MG TABLET PO SCH (12:45)
[2018-02-03] MEDS: FERROUS SULFATE 325 MG TABLET PO SCH (12:45)
--- NOTE | 2018-02-03 14:14 | RADIOLOGY REPORT (SQ) ---
EXAM DESCRIPTION: CHEST 2 VIEWS COMPLETED DATE/TIME: 02/03/2018 2:04 pm REASON FOR STUDY: pleural effusion COMPARISON: 01/30/2018 EXAM PARAMETERS: NUMBER OF VIEWS: two views TECHNIQUE: Digital Frontal and Lateral radiographic views of the chest acquired. RADIATION DOSE: NA LIMITATIONS: none FINDINGS: LUNGS AND PLEURA: Bilateral pleural effusions. There is improvement on the left. Opacifi cation in the lung bases. MEDIASTINUM AND HILAR STRUCTURES: No masses or contour abnormalities. HEART AND VASCULAR STRUCTURES: Heart size is borderline. No pulmonary edema. BONES: No acute findings. HARDWARE: None in the chest. OTHER: No other significant finding. IMPRESSION: Bilateral pleural effusions, improved on the left. Airspace disease in the lung bases, atelectasis versus pneumonia. Cardiomegaly without CHF. TECHNICAL DOCUMENTATION: JOB ID: [id number] [employer]- All Rights Reserved Reading location - IP/workstation name: [email or web address]
--- NOTE | 2018-02-03 16:24 | PDOC PROGRESS REPORT ---
Subjective Progress Note for:: 02/03/18 Subjective:: I saw the patient on hemodialysis this morning at around 8:10 AM. He is feeling much better and wanted to go home. He said he is breathing better. He does not have any other new complaints. His blood pressure is again a little bit on the low side so ultrafiltration has been limited. Reason For Visit: SOB,ESRD Physical Exam Vital Signs: Temp Pulse Resp BP Pulse Ox 98.9 F 77 20 122/62 100 02/03/18 14:21 02/03/18 15:20 02/03/18 14:21 02/03/18 14:21 02/03/18 15:20 Intake & Output 02/02/18 02/03/18 02/04/18 06:59 06:59 06:59 Intake Total 370 1024 50 Output Total 2800 4700 Balance -2430 -3676 50 Weight 83.4 kg Vitals during dialysis: Blood pressure of 112/69, heart rate of 71, blood flow rate of 450 mL/min dialysate flow rate of 800 mL/min. Exam: General appearance: PRESENT: no acute distress, cooperative, well-developed, well-nourished Head exam: PRESENT: atraumatic, normocephalic Eye exam: PRESENT: conjunctiva pale, PERRLA. ABSENT: scleral icterus Neck exam: ABSENT: JVD Respiratory exam: PRESENT: Diminished breath sounds. There are normal crackles heard in the mid to lower lung [place]. ABSENT: crackles, rales, rhonchi, unlabored, wheezes Cardiovascular exam: PRESENT: Regular rate rhythm -+S1, +S2. ABSENT: diastolic murmur, systolic murmur GI/Abdominal exam: PRESENT: normal bowel sounds, soft. ABSENT: guarding, mass, tenderness Extremities exam: ABSENT: No edema Neurological exam: PRESENT: alert, awake, oriented to person, place and time. Skin exam: PRESENT: dry, warm, Cardiovascular exam: PRESENT: +S1, +S2 GI/Abdominal exam: PRESENT: normal bowel sounds, soft. ABSENT: organomegaly, tenderness Results Laboratory Results: 02/03/18 04:34 02/03/18 04:34 02/03/18 02/03/18 04:34 04:34 WBC 5.0 RBC 3.51 L Hgb 10.5 L Hct 33.5 L MCV 95 MCH 29.8 MCHC 31.3 L RDW 23.9 H Plt Count 248 Sodium 140.9 Potassium 4.2 Chloride 97 L Carbon Dioxide 31 H Anion Gap 13 BUN 22 H Creatinine 4.88 H Est GFR ( Amer) 15 L Est GFR (Non-Af Amer) 12 L Glucose 134 H Calcium 9.4 01/31/18 01/31/18 07:53 07:53 Creatine Kinase 48 L CK-MB (CK-2) 1.65 Troponin I 0.163 Impressions: Chest Ultrasound 01/30/18 00:00 IMPRESSION: Pleural effusions as described. Chest X-Ray 02/03/18 13:00 IMPRESSION: Bilateral pleural effusions, improved on the left. Airspace disease in the lung bases, atelectasis versus pneumonia. Cardiomegaly without CHF. Assessment & Plan - Diagnosis (1) ESRD (end stage renal disease) Is this a current diagnosis for this admission?: Yes Plan: We did isolated ultrafiltration and dialysis today for 3-1/2 hours, using the patient's AV fistula, with 2 potassium bath, blood flow rate of 450 mL per minute, dialysate flow rate of 800 mL per minute, ultrafiltration 2-3 l as tolerated, no heparin and no Procrit during dialysis. Total ultrafiltration at the end of treatment was 2.6 l. Patient tolerated dialysis as well as ultrafiltration well. Patient seems to be clinically improved. From nephrology standpoint I think he can be sent home safely. We will continue dialysis at [facility] on his regular schedule. (2) Pulmonary vascular congestion Is this a current diagnosis for this admission?: Yes Plan: Radiographically improved through hemodialysis and ultrafiltration. (3) Intra-dialytic hypotension Is this a current diagnosis for this admission?: Yes Plan: Continue midodrine 5 mg p.o. twice daily scheduled. Hold Toprol before dialysis. (4) Anemia in chronic kidney disease (CKD) Qualifiers: Chronic kidney disease stage: on chronic dialysis Qualified Code(s): N18.6 - End stage renal disease; D63.1 - Anemia in chronic kidney disease; D63.1 - Anemia in chronic kidney disease; Z99.2 - Dependence on renal dialysis; Z99.2 - Dependence on renal dialysis; Z99.2 - Dependence on renal dialysis; Z99.2 - Dependence on renal dialysis Is this a current diagnosis for this admission?: Yes (5) Coronary artery disease Qualifiers: Coronary Disease-Associated Artery/Lesion type: unspecified vessel or lesion type Is this a current diagnosis for this admission?: Yes (6) Pleural effusion Is this a current diagnosis for this admission?: Yes Plan: Pulmonary service following. - Time Time with patient: 15-25 minutes
[2018-02-03] MEDS: LEVOFLOXACIN 250 MG TABLET PO SCH (18:47)
[2018-02-03] MEDS: MIRTAZAPINE 15 MG TABLET PO SCH (21:15)
[2018-02-03] MEDS: ATORVASTATIN CALCIUM 40 MG TABLET PO SCH (21:15)
--- NOTE | 2018-02-03 22:53 | PDOC PROGRESS REPORT ---
Subjective Progress Note for:: 02/03/18 Subjective:: Patient was seen on dialysis. Noted to be doing reasonably well. Patient was scheduled for nuclear stress test but because of scheduling issue, cannot be done until Tuesday a.m. Patient seems to be doing better with gradual improvement. Pt is denying any chest arm or neck discomfort. Patient denying any PND, orthopnea. Patient denied any sustained palpitations, dizziness, syncope, near syncope. Patient denying any fever chills. Patient denying any other significant discomfort. Patient is maintaining chronic atrial fibrillation. Review of systems: Rest review of systems negative. Medications: Medications have been reviewed.. Reason For Visit: SOB,ESRD Physical Exam Vital Signs: Temp Pulse Resp BP Pulse Ox 98.7 F 71 15 120/69 90 L 02/03/18 20:20 02/03/18 20:20 02/03/18 20:20 02/03/18 20:20 02/03/18 20:20 Intake & Output 02/02/18 02/03/18 02/04/18 06:59 06:59 06:59 Intake Total 370 1024 770 Output Total 2800 4700 2600 Balance -2430 -3676 -1830 Weight 83.4 kg Exam: GENERAL: well-nourished and in no acute distress. Alert and oriented x3 HEAD: Atraumatic, normocephalic. EYES: Pupils equal round and reactive to light, extraocular movements intact, sclera anicteric, conjunctiva are normal. ENT: TMs normal, nares patent, oropharynx clear without exudates. Moist mucous membranes. No oral ulcerations or bleeding gums noted NECK: supple without lymphadenopathy. Trachea is central. No cervical or axillary lymphadenopathy noted. Carotids are 2+, JVD 10-12 cm LUNGS: Respiration seems nonlabored, no significant accessory muscle action noted. Bibasilar fine crackles and few a scattered wheezes rales or rhonchi noted. Bibasilar dullness noted on percussion. CHEST: Palpation of the chest wall shows no significant chest wall tenderness. HEART: Odem SECURITY CONTROL ASSESSOR, No PSH, 2/6 JORDAN aortic area, 1/6 gomez systolic murmur mitral area , no rubs, no gallops. ABDOMEN: Soft, no significant tenderness appreciated, normoactive bowel sounds. No guarding, no rebound. No rigidity noted . No masses appreciated. EXTREMITIES: No calf tenderness noted. No clubbing or cyanosis. 1+ pedal edema noted, right great toe amputated, 2 lateral toes amputated on the left side. AV graft noted left forearm. Pedal pulses are diminished. NEUROLOGICAL: Focused neurological exam showed no significant neurologic deficit. Normal speech, no focal weakness appreciated. PSYCH: Normal mood, normal affect. Judgment and insight within normal limits. SKIN: No significant ecchymosis, skin is noted to be warm. MUSCULOSKELETAL EXAM: No significant acute joint swelling noted. Results Laboratory Results: 02/03/18 04:34 02/03/18 04:34 02/03/18 02/03/18 04:34 04:34 WBC 5.0 RBC 3.51 L Hgb 10.5 L Hct 33.5 L MCV 95 MCH 29.8 MCHC 31.3 L RDW 23.9 H Plt Count 248 Sodium 140.9 Potassium 4.2 Chloride 97 L Carbon Dioxide 31 H Anion Gap 13 BUN 22 H Creatinine 4.88 H Est GFR ( Amer) 15 L Est GFR (Non-Af Amer) 12 L Glucose 134 H Calcium 9.4 01/31/18 01/31/18 07:53 07:53 Creatine Kinase 48 L CK-MB (CK-2) 1.65 Troponin I 0.163 Impressions: Chest Ultrasound 01/30/18 00:00 IMPRESSION: Pleural effusions as described. Chest X-Ray 02/03/18 13:00 IMPRESSION: Bilateral pleural effusions, improved on the left. Airspace disease in the lung bases, atelectasis versus pneumonia. Cardiomegaly without CHF. Assessment & Plan - Diagnosis (1) CAD (coronary artery disease) Qualifiers: Coronary Disease-Associated Artery/Lesion type: unspecified vessel or lesion type [place] vs. transplanted heart: [place] heart Associated angina: angina presence unspecified Qualified Code(s): I25.10 - Atherosclerotic heart disease of [place] coronary artery without angina pectoris Is this a current diagnosis for this admission?: Yes (2) Congestive heart failure Qualifiers: Heart failure type: unspecified Is this a current diagnosis for this admission?: Yes (3) Diabetes Qualifiers: Diabetes mellitus type: type 2 Diabetes mellitus mcfp insulin use: unspecified mcfp insulin use status Chronic kidney disease stage: on chronic dialysis Is this a current diagnosis for this admission?: Yes (4) Dyspnea Qualifiers: Dyspnea type: unspecified Qualified Code(s): R06.00 - Dyspnea, unspecified Is this a current diagnosis for this admission?: Yes (5) Elevated troponin I level Is this a current diagnosis for this admission?: Yes (6) Hypoxemia Is this a current diagnosis for this admission?: Yes (7) PVD (peripheral vascular disease) Is this a current diagnosis for this admission?: Yes (8) ESRD (end stage renal disease) Is this a current diagnosis for this admission?: Yes - Notes Notes: Telemetry shows atrial fibrillation with controlled ventricular response. Patient seen on dialysis today. Is having some fluid removed. Patient could not have nuclear stress test today. Troponin I elevation: Exact etiology not clear but could well be from hypoxemia , atrial fibrillation with RVR. Recommend optimization of underlying anti- ischemic therapy. Recommend nitrates, antiplatelets, beta blockers, high potency statins, RIZWAN inhibitor/ARB etc. Atrial fibrillation with rapid ventricular response: Recommend rate control. Beta-blockers preferred in view of CAD. Continue Eliquis therapy at current dose. CHF: 2D echo to evaluate underlying cause of CHF, shows CHF is mainly diastolic. Agree with fluid removal on dialysis. Hypoxemia: Recommend oxygen supplementation and noninvasive positive pressure ventilation as needed to maintain O2 sat over 90%. CAD: Currently without any chest pain. Will consider evaluation with a nuclear stress test once patient more stable. End-stage renal disease: Patient advised compliance with dialysis. Nephrology following. Hypertension: Blood pressure goal is 135/85 or less. Currently adequately controlled. Diabetes: Being well managed by spray painter. Recommend avoiding any hyper or hypoglycemia. PVD: Currently stable without any ongoing signs of tissue ischemia. Dyslipidemia: Recommend high potency statin therapy with LDL goal less than 70. - Time Time with patient: Greater than 35 minutes - CODE STATUS was discussed, patient remains full code. Surrogate decision-maker unchanged. Multiple medical problems were addressed. More than 50% of the time spent coordinating care, discussing management plans with involved caregivers. Management plans discussed with involved personnels. Medical decision making was of moderate to high complexity, patient's has multiple comorbidities.
[2018-02-04 06:05] LABS: ANION GAP 12 (5-19); BLOOD UREA NITROGEN 20 mg/dL (7-20); CALCIUM 9.6 mg/dL (8.4-10.2); CARBON DIOXIDE 33 mmol/L (22-30); CHLORIDE 97 mmol/L (98-107); GLUCOSE 159 mg/dL (75-110); SODIUM 141.7 mmol/L (137-145)
[2018-02-04] MEDS: CALCIUM ACETATE 667 MG CAPSULE PO SCH ×2 (06:41→13:10)
[2018-02-04] MEDS: LANSOPRAZOLE 30 MG TAB.RAP.DR PO SCH (06:42)
[2018-02-04] MEDS: OXYCODONE-ACETAMINOPHEN 5-325 MG TABLET PO PRN (08:48)
[2018-02-04] MEDS: FLUTICASONE/SALMETEROL DISKUS 500-50 MCG/DOSE IH SCH (10:16)
[2018-02-04] MEDS: CLOPIDOGREL BISULFATE 75 MG TABLET PO SCH (10:16)
[2018-02-04] MEDS: APIXABAN 2.5 MG TABLET PO SCH (10:16)
[2018-02-04] MEDS: FERROUS SULFATE 325 MG TABLET PO SCH (10:16)
[2018-02-04] MEDS: GABAPENTIN 100 MG CAPSULE PO SCH (10:16)
[2018-02-04] MEDS: TIOTROPIUM BROMIDE DPI 5 CAP/KIT (18 MCG/CAP) IH SCH (10:16)
[2018-02-04] MEDS: MIDODRINE HCL 5 MG TABLET PO SCH (10:17)
--- NOTE | 2018-02-04 11:32 | PDOC PROGRESS REPORT ---
Subjective Progress Note for:: 02/04/18 Subjective:: No chest pain. Remain on supplemental oxygen via nasal cannula. No fever or chills. Discussed with Dr. Keene, appliquer, request for oxygen need evaluation before discharge. No nausea, vomiting, or abdominal pain. On schedule for dialysis on Tuesday, Tuesday and Tuesday. Reason For Visit: SOB,ESRD Physical Exam Vital Signs: Temp Pulse Resp BP Pulse Ox 98.0 F 69 16 134/93 H 99 02/04/18 07:33 02/04/18 07:33 02/04/18 07:33 02/04/18 07:33 02/04/18 07:33 Intake & Output 02/03/18 02/04/18 02/05/18 06:59 06:59 06:59 Intake Total 1024 1090 Output Total 4700 2600 Balance -3676 -1510 Weight 82.4 kg General appearance: PRESENT: no acute distress Head exam: PRESENT: atraumatic, normocephalic Ear exam: PRESENT: normal external ear exam Mouth exam: PRESENT: moist Respiratory exam: PRESENT: clear to auscultation john, decreased breath sounds - at lung bases Cardiovascular exam: PRESENT: irregular rhythm Vascular exam: ABSENT: pallor GI/Abdominal exam: PRESENT: normal bowel sounds, soft. ABSENT: distended, guarding, mass, organolmegaly, rebound, tenderness Extremities exam: ABSENT: pedal edema Musculoskeletal exam: PRESENT: normal inspection Neurological exam: PRESENT: alert, awake, oriented to person, oriented to place , oriented to time, oriented to situation, CN II-XII grossly intact. ABSENT: motor sensory deficit Psychiatric exam: PRESENT: appropriate affect, normal mood. ABSENT: homicidal ideation, suicidal ideation Skin exam: PRESENT: dry, intact, warm. ABSENT: cyanosis, rash Results Laboratory Results: 02/03/18 04:34 02/04/18 04:34 02/04/18 04:34 Sodium 141.7 Potassium 4.0 Chloride 97 L Carbon Dioxide 33 H Anion Gap 12 BUN 20 Creatinine 5.02 H Est GFR ( Amer) 14 L Est GFR (Non-Af Amer) 12 L Glucose 159 H Calcium 9.6 01/31/18 01/31/18 07:53 07:53 Creatine Kinase 48 L CK-MB (CK-2) 1.65 Troponin I 0.163 Impressions: Chest Ultrasound 01/30/18 00:00 IMPRESSION: Pleural effusions as described. Chest X-Ray 02/03/18 13:00 IMPRESSION: Bilateral pleural effusions, improved on the left. Airspace disease in the lung bases, atelectasis versus pneumonia. Cardiomegaly without CHF. Assessment & Plan - Diagnosis (1) Acute on chronic diastolic (congestive) heart failure Is this a current diagnosis for this admission?: Yes Plan: Continue current medication management. (2) Chronic atrial fibrillation Is this a current diagnosis for this admission?: Yes Plan: Continue current medication management. (3) Coronary artery disease Qualifiers: Coronary Disease-Associated Artery/Lesion type: unspecified vessel or lesion type Is this a current diagnosis for this admission?: Yes Plan: Continue current medication management. (4) Elevated troponin I level Is this a current diagnosis for this admission?: Yes Plan: Continue current medication management. (5) Pleural effusion Is this a current diagnosis for this admission?: Yes Plan: Continue current management. Surgical Services Assistant advised against thoracentesis. Supported supplemental oxygen at home. (6) Hypoxemia Is this a current diagnosis for this admission?: Yes Plan: Continue current supportive management. Discussed with special events planner regarding home supplemental oxygen. (7) Type 2 diabetes mellitus Qualifiers: Diabetes mellitus halfway insulin use: with termite control service representative use Diabetes mellitus complication status: with other specified complication Qualified Code (s): E11.69 - Type 2 diabetes mellitus with other specified complication; Z79.4 - exterminator termite (current) use of insulin; Z79.4 - exterminator termite (current) use of insulin ; Z79.4 - USP (current) use of insulin; Z79.4 - USP (current) use of insulin Is this a current diagnosis for this admission?: Yes Plan: Continue current medication management. (8) CKD (chronic kidney disease) stage V requiring chronic dialysis Is this a current diagnosis for this admission?: Yes Plan: Continue current medication and supportive management. (9) Anemia in chronic kidney disease (CKD) Qualifiers: Chronic kidney disease stage: on chronic dialysis Qualified Code(s): N18.6 - End stage renal disease; D63.1 - Anemia in chronic kidney disease; D63.1 - Anemia in chronic kidney disease; Z99.2 - Dependence on renal dialysis; Z99.2 - Dependence on renal dialysis; Z99.2 - Dependence on renal dialysis; Z99.2 - Dependence on renal dialysis Is this a current diagnosis for this admission?: Yes Plan: Continue current medication and supportive management. - Time Time Spent with patient: 25-34 minutes Anticipated discharge: Home Within: Other - Inpatient Certification Based on my medical assessment, after consideration of the patient's comorbidities, presenting symptoms, or acuity I expect that the services needed warrant INPATIENT care.: Yes I certify that my determination is in accordance with my understanding of Medicare's requirements for reasonable and necessary INPATIENT services [42 CFR 412.3e].: Yes Medical Necessity: Need Close Monitoring Due to Risk of Patient Decompensation, Need For Continuous Telemetry Monitoring, Risk of Complication if Not Cared For in Hospital Post Hospital Care: D/C Fretted Instrument Maker Hand Documentation - Plan Summary Plan Summary: Continue current medication management. See covering attending physician orders.
[2018-02-04] MEDS: CEFTRIAXONE SODIUM 750 MG in DEXTROSE 5%-WATER 50 ML IV SCH (11:58)
--- NOTE | 2018-02-04 13:25 | PDOC DISCHARGE SUMMARY ---
General - Admit/Disc Date/PCP Admission Date/Primary Care Provider: 01/30/18 20:21 FEI ZULETA MD Discharge Date: 02/04/18 - Discharge Diagnosis (1) Acute on chronic diastolic (congestive) heart failure Is this a current diagnosis for this admission?: Yes (2) Chronic atrial fibrillation Is this a current diagnosis for this admission?: Yes (3) Coronary artery disease Is this a current diagnosis for this admission?: Yes (4) Elevated troponin I level Is this a current diagnosis for this admission?: Yes (5) Pleural effusion Is this a current diagnosis for this admission?: Yes (6) Hypoxemia Is this a current diagnosis for this admission?: Yes (7) Type 2 diabetes mellitus Is this a current diagnosis for this admission?: Yes (8) CKD (chronic kidney disease) stage V requiring chronic dialysis Is this a current diagnosis for this admission?: Yes (9) Anemia in chronic kidney disease (CKD) Is this a current diagnosis for this admission?: Yes (10) Pneumonia Is this a current diagnosis for this admission?: Yes Summary: Discharge home on Levofloxacin 250 mg po daily for five more days. - Additional Information Resuscitation Status: Full Code Discharge Diet: Cardiac, Diabetic Discharge Activity: Activity As Tolerated Prescriptions: Levofloxacin [Levaquin 250 mg Tablet] 250 mg PO QPM #5 tablet Oxycodone HCl/Acetaminophen [Percocet 5-325 mg Tablet] 1 tab PO Q6HP PRN #20 tablet PRN Reason: Severe Pain Home Medications: Acetaminophen [Tylenol 325 mg Tablet] 650 mg PO Q4HP PRN 01/30/18 Apixaban [Eliquis 2.5 mg Tablet] 2.5 mg PO Q12 01/30/18 Atorvastatin Calcium [Lipitor 40 mg Tablet] 40 mg PO DAILY 01/30/18 Calcium Acetate [Phoslo 667 mg Capsule] 667 mg PO Q8 01/30/18 Clopidogrel Bisulfate [Plavix 75 mg Tablet] 75 mg PO DAILY 01/30/18 Ferrous Sulfate [Iron] 325 mg PO DAILY 01/30/18 Gabapentin [Neurontin 100 mg Capsule] 100 mg PO Q12 01/30/18 Mirtazapine [Remeron] 30 mg PO QHS 01/30/18 Nitroglycerin [Nitrostat 0.4 mg (1/150 Gr) Tabs 25/Bottle] 1 tab SL Q5MP PRN Pantoprazole Sodium [Protonix] 40 mg PO DAILY 01/30/18 Ramelteon [Rozerem] 8 mg PO QHS 01/30/18 Levofloxacin [Levaquin 250 mg Tablet] 250 mg PO QPM #5 tablet 02/04/18 Oxycodone HCl/Acetaminophen [Percocet 5-325 mg Tablet] 1 tab PO Q6HP PRN #20 tablet 02/04/18 History of Present Illness History of Present Illness: CHAPITO LESLIE is a 62 year old male This is a 62-year-old male went to the dialysis today and the patient's oxygen saturation was low and patient was discharged to the ER at that point Emergency department patient oxygen saturation is 86% on room air patient was put on 2 L nasal cannula and patients go up to the 98%'s Recently discharged from the rehab facility with the patient is requiring oxygens especially at nighttime to 2 L She was recently admitting in the hospital extensive evaluation done by the pulmonary and cardiology patient have a history of the recurrent pleural effusions which last CT angiogram was done 2 weeks but was negative for any PE and very minimal effusions Patient's currently follow the [place] [facility] not seen after came from the [facility] Patient's denied any chest pain except when patient's cough no mild chest wall pain She is denied any fever or chills Patient's denied any abdominal pain no nausea no vomiting When I saw the patient in the emergency department comfortable lying in the bed denied any complaints as usual feeling weak This with the patient and the and the bedside to decided to admit in the hospital with a multiple risk factors Patient's 2 sets of the troponin was so for no acute finding Hospital Course Hospital Course: Patient was seen by physician practice administrator and hemodialysis session did assist with reliving his fluid overload issue with improvement in his breathing. He did demonstrate serum elevation of Troponin-I that may be due to his ESRD state. He continue to denied any chest pain. No palpitation, nausea or vomiting. He request discharge home today and will follow up at [facility] for his schedule hemodialysis on Tuesday, Tuesday and Tuesday. His oxygenation evaluation did confirm need for home supplemental oxygen. he will be discharged home today on supplemental oxygen at 2L/min via nasal cannula. He was instructed to follow up with Valorie Preciado, and Jassi as instructed upon discharge. Physical Exam Vital Signs: Temp Pulse Resp BP Pulse Ox 98.0 F 69 16 134/93 H 99 02/04/18 07:33 02/04/18 07:33 02/04/18 07:33 02/04/18 07:33 02/04/18 07:33 Intake & Output 02/03/18 02/04/18 02/05/18 06:59 06:59 06:59 Intake Total 1024 1090 Output Total 4700 2600 Balance -3676 1510 Weight 82.4 kg Results Laboratory Results: 02/03/18 04:34 02/04/18 04:34 02/04/18 04:34 Sodium 141.7 Potassium 4.0 Chloride 97 L Carbon Dioxide 33 H Anion Gap 12 BUN 20 Creatinine 5.02 H Est GFR ( Amer) 14 L Est GFR (Non-Af Amer) 12 L Glucose 159 H Calcium 9.6 01/31/18 01/31/18 07:53 07:53 Creatine Kinase 48 L CK-MB (CK-2) 1.65 Troponin I 0.163 Impressions: Chest Ultrasound 01/30/18 00:00 IMPRESSION: Pleural effusions as described. Chest X-Ray 02/03/18 13:00 IMPRESSION: Bilateral pleural effusions, improved on the left. Airspace disease in the lung bases, atelectasis versus pneumonia. Cardiomegaly without CHF. Qualifiers - * PATIENT BEING DISCHARGED WITH ANY OF THE FOLLOWING DIAGNOSIS: Heart Failure Reason(s) for not prescribing ACEI/ARBS:: Not indicated HF Pt being discharged on ACEI for LVEF less than 40%?: No Reason(s) for not prescribing ACEI:: Not indicated HF Pt being discharged on ARBS for LVEF less than 40%?: No Reason(s) for not prescribing ARBS:: Not indicated HF Pt with Afib discharged with Warfarin?: No Reason(s) for not prescribing Warfarin:: Not indicated HF Pt discharged on evidence-based Beta Gabby:: No Reason(s) for not prescribing evidence-based Beta Gabby:: Not indicated Plan Discharge Plan: Discharge home today and follow up with PCP and specialists as instructed upon discharge. Time Spent: Greater than 30 Minutes - in care coordination and post discharge instructions.
[2018-02-04 13:38] VITALS: BP 129/62
--- NOTE | 2018-02-04 14:46 | PROGRESS NOTE E ---
Progress Note NAME: CHAPITO LESLIE : 1955 AGE: 62Y DATE: 02/04/2018 ROOM: 538 SUBJECTIVE: Patient is a 62-year-old male who came in with pleural effusion, shortness of breath, COPD/asthma. Patient appeared to be feeling better over the last 3 to 4 hours. No fever or chills. Denies any chest pain, increased cough. No purulent sputum production or hemoptysis. Patient needs oxygen during this hospitalization. OBJECTIVE: GENERAL: Patient appeared sleepy, but not in apparent respiratory distress, lying comfortably on 1 pillow. VITAL SIGNS: Temperature is 98 degrees Fahrenheit with a T-max of 98.9, blood pressure is 134/93, pulse rate 69, respirations 16, saturation is 99% on 2 liters nasal cannula. EYES: No jaundice or pallor. EARS, NOSE AND THROAT: No ear drainage. No nasal discharge. CHEST AND LUNGS: No wheezing, no rhonchi, no coarse crackles. CARDIOVASCULAR: S1, S2 distant. Normal rate, regular rhythm. ABDOMEN: Flabby. EXTREMITIES: No joint swelling or cellulitis. LABORATORY DATA: No CBC done today. No PT or PTT. Chemistry done today showed sodium of 141, potassium is 4, chloride 97, CO2 is 33, BUN 20, creatinine is 5, glucose 159, calcium is 9.6. ASSESSMENT: 1. COPD/ASTHMA, CURRENTLY STABLE, NOT IN ACUTE EXACERBATION. 2. PLEURAL EFFUSION, BILATERAL, LEFT MORE THAN RIGHT, LOCULATED. May be due to a trapped lung. High risk of recurrence after thoracentesis. If the pleural effusion gets worse and patient gets more and more short of breath, will consider urgent thoracentesis, ultrasound-guided, after holding the Plavix and Eliquis at least for 5 days. The patient has high risk for excessive bleeding if thoracentesis is done with Eliquis and Plavix on. If Plavix and Eliquis are withheld, patient is also at high risk of having a stroke. Currently, patient is doing well, breathing comfortably. Had a few dialyses this hospitalization. The patient's breathing is improving. The patient does not need an urgent thoracentesis at this time. PLAN/RECOMMENDATIONS: 1. Patient may be able to go home. Recommend home oxygen therapy evaluation. Patient may need oxygen at home. 2. Continue Advair 500 via inhaler 1 puff daily and Spiriva inhaler 1 puff daily. Pulmonary clinic followup in 2 weeks following hospital discharge. DICTATING PHYSICIAN: MARYAM CARDONA MD,HIEN,MPH [id number] PHY#: [id number] ID: [id number] JOB#: [id number] ACCT: [id number] cc: > MTDD
== END 2018-02-04 13:45 | disposition home or self-care (01) | DRG 291 ==
LOC: ER 13:13 → EH 20:21 → 5 01-31 03:04
PROVIDERS: ADMIT Family Medicine; ATTEND Family Medicine
PROC: 5A1D70Z Performance of Urinary Filtration, Intermittent, Less than 6 Hours Per Day (ICD-10-PCS; 2018-02-01)
PROC: 5A1D70Z Performance of Urinary Filtration, Intermittent, Less than 6 Hours Per Day (ICD-10-PCS; 2018-02-02)
PROC: 5A1D70Z Performance of Urinary Filtration, Intermittent, Less than 6 Hours Per Day (ICD-10-PCS; principal; 2018-02-03)
DX: I13.0 Hypertensive heart and chronic kidney disease with heart failure and stage 1 through stage 4 chronic kidney disease, or unspecified chronic kidney disease (principal); I50.33 Acute on chronic diastolic (congestive) heart failure; J18.9 Pneumonia, unspecified organism; N18.4 Chronic kidney disease, stage 4 (severe); J90 Pleural effusion, not elsewhere classified; D63.1 Anemia in chronic kidney disease; E11.22 Type 2 diabetes mellitus with diabetic chronic kidney disease; I48.2 Chronic atrial fibrillation; I25.10 Atherosclerotic heart disease of native coronary artery without angina pectoris; R09.02 Hypoxemia; K21.9 Gastro-esophageal reflux disease without esophagitis; F32.9 Major depressive disorder, single episode, unspecified; Z79.02 Long term (current) use of antithrombotics/antiplatelets; Z79.899 Other long term (current) drug therapy; Z99.2 Dependence on renal dialysis; Z95.1 Presence of aortocoronary bypass graft; Z88.1 Allergy status to other antibiotic agents
CPT/HCPCS: 36415; 71046; 76604; 80048; 80053; 82550; 82553; 82962; 83735; 84484; 85025; 85027; 85610; 93005; 93010; 93306; 99285; G8978-GP; G8979-GP; J0696; J3490; J7620

== ENCOUNTER 2018-03-14 18:35 | Emergency (ER) | payer OTHER, MEDICARE ==
--- NOTE | 2018-03-14 19:54 | EKG REPORT ---
SEVERITY:- ABNORMAL ECG - SINUS RHYTHM FIRST DEGREE AV BLOCK RIGHT BUNDLE BRANCH BLOCK : Confirmed by: Shraddha Angel MD 14-Mar-2018 19:53:06
--- NOTE | 2018-03-14 19:55 | ER Document Report ---
ED General - General Chief Complaint: Chest Pain Stated Complaint: CHEST PAIN Time Seen by Provider: 03/14/18 19:32 Mode of Arrival: Ambulatory Information source: Patient Notes: 62-year-old male with congestive heart failure, coronary artery disease, atrial fibrillation, hypertension, end-stage renal disease, type 2 diabetes presents with complaint of a lump on his anterior chest wall. Patient states this occurred 2 days prior to arrival. He also states that 4 days prior to arrival he had a trip and fall where he landed on the ground and struck his chest. Patient denies head injury, loss of consciousness, preceding shortness of breath dizziness or chest pain. He also denies any fever, chills, nausea, vomiting. Patient has discomfort in the area of swelling. TRAVEL OUTSIDE OF THE [place] IN LAST 30 DAYS: No - HPI Onset: Other Onset/Duration: Gradual, Persistent Quality of pain: Achy Severity: Mild Associated symptoms: Chest pain - Chest wall pain secondary to swelling. denies : Nonproductive cough, Productive cough, Fever, Leg swelling, Nausea, Vomiting, Shortness of breath Exacerbated by: Denies Relieved by: Denies Similar symptoms previously: No Recently seen / treated by doctor: No - Related Data Allergies/Adverse Reactions: vancomycin [Vancomycin] Adverse Reaction (Unknown, Verified 10/19/17 07:42) molina syndrome Past Medical History - General Information source: Patient, [facility] Records - Social History Smoking Status: Never Smoker Frequency of alcohol use: None Drug Abuse: None Lives with: Family, Spouse/Significant other Family History: CAD, Hypertension, Malignancy. denies: DM Patient has suicidal ideation: No Patient has homicidal ideation: No - Past Medical History Cardiac Medical History: Reports: Hx Atrial Fibrillation, Hx Congestive Heart Failure, Hx Coronary Artery Disease, Hx Peripheral Vascular Disease Denies: Hx Heart Attack, Hx Hypertension - SOMETIMES,NO MEDS Pulmonary Medical History: Denies: Hx Asthma, Hx Bronchitis, Hx COPD, Hx Pneumonia Neurological Medical History: Denies: Hx Cerebrovascular Accident, Hx Seizures Endocrine Medical History: Reports: Hx Diabetes Mellitus Type 2 Renal/ Medical History: Reports: Hx End Stage Renal Disease - Dialysis dependent, Hx Hemodialysis, Hx Renal Insufficiency. Denies: Hx Peritoneal Dialysis GI Medical History: Reports: Hx Gastroesophageal Reflux Disease. Denies: Hx Hepatitis, Hx Hiatal Hernia, Hx Ulcer Musculoskeletal Medical History: Denies Hx Arthritis Skin Medical History: Denies Hx Psoriasis Psychiatric Medical History: Reports: Hx Depression Traumatic Medical History: Denies: Hx Traumatic Brain Injury Infectious Medical History: Denies: Hx Hepatitis Past Surgical History: Reports: Hx Cardiac Catheterization, Hx Coronary Artery Bypass Graft - X3 vessel on October 26, 2017, Hx Orthopedic Surgery - Right big toe amputation in 2014, left third and fourth toe amputation, Hx Vascular Surgery, Other - Cervical laminectomy in 2012. Denies: Hx Open Heart Surgery, Hx Pacemaker - Immunizations Hx Diphtheria, Pertussis, Tetanus Vaccination: Yes Hx Pneumococcal Vaccination: 02/05/15 Review of Systems - Review of Systems Notes: REVIEW OF SYSTEMS: CONSTITUTIONAL : Denies fever, chills, or sweats. Denies recent illness. Denies weight loss, recent hospitalizations. EENT: Denies visual changes, eye pain. Denies sore throat, oral lesions, difficulty swallowing. CARDIOVASCULAR: Denies palpitations. Denies lower extremity edema. RESPIRATORY: Denies cough. Denies shortness of breath, wheezing. GASTROINTESTINAL: Denies abdominal pain or distention. Denies nausea, vomiting , or diarrhea. Denies blood in vomitus, stools, or per rectum. Denies black, tarry stools. Denies constipation. GENITOURINARY: Denies difficulty urinating, painful urination, frequency, blood in urine, testicular pain or penile discharge. MUSCULOSKELETAL: Denies back or neck pain or stiffness. Denies joint pain or swelling. SKIN: Denies rash, lesions or sores. HEMATOLOGIC : Denies easy bruising or bleeding. LYMPHATIC: Denies swollen glands. NEUROLOGICAL: Denies confusion or altered mental status. Denies loss of consciousness. Denies dizziness or lightheadedness. Denies headache. Denies weakness or paralysis. Denies problems difficulty with ambulation, slurred speech. Denies sensory loss, numbness, or tingling. Denies seizures. PSYCHIATRIC: Denies anxiety or stress. Denies depression, suicidal ideation, or Physical Exam - Vital signs Vitals: Temp Pulse Resp BP Pulse Ox 99.0 F 67 16 136/58 H 96 03/14/18 18:49 03/14/18 18:49 03/14/18 18:49 03/14/18 18:49 03/14/18 18:49 - Notes Notes: PHYSICAL EXAMINATION: GENERAL: Well-appearing, well-nourished and in no acute distress. HEAD: Atraumatic, normocephalic. EYES: Pupils equal round and reactive to light, extraocular movements intact, sclera anicteric, conjunctiva are normal. ENT: Nares patent, oropharynx clear without exudates. Moist mucous membranes. NECK: Normal range of motion, supple without lymphadenopathy LUNGS: Breath sounds clear to auscultation bilaterally and equal. No wheezes rales or rhonchi. 4 x 4 centimeter area of swelling on the anterior chest wall superior to the xiphoid. Mild tenderness with palpation of this area. No induration, fluctuance. Mild associated erythema HEART: Regular rate and rhythm without murmurs ABDOMEN: Soft, nontender, nondistended abdomen. No guarding, no rebound. No masses appreciated. Musculoskeletal: Normal range of motion, no pitting or edema. No cyanosis. NEUROLOGICAL: Cranial nerves grossly intact. Normal speech, normal gait. Normal sensory, motor exams PSYCH: Normal mood, normal affect. SKIN: Warm, Dry, normal turgor, no rashes or lesions noted. Course - Re-evaluation Re-evalutation: Chest CT 03/14/18 20:45 IMPRESSION: There is median sternotomy. Anterior to the inferior aspect of the sternum there is a 3.1 x 3.0 x 5.0 cm soft tissue swelling most likely representing a postsurgical seroma or developing subcutaneous abscess in this region There is cardiomegaly. Mild bilateral lower lobe and minimal right upper lobe infiltrate/atelectasis is noted, worse in the left lower lobe of the lung. There is tiny right-sided pleural effusion. There is mild aneurysmal dilatation of the ascending thoracic aorta measuring 4.1 cm. TECHNICAL DOCUMENTATION: Quality ID # 436: Final reports with documentation of one or more dose reduction techniques (e.g., Automated exposure control, adjustment of the mA and/or kV according to patient size, use of iterative reconstruction technique) 2010 [employer]- All Rights Reserved 62-year-old male with congestive heart failure, coronary artery disease, atrial fibrillation, hypertension, end-stage renal disease, type 2 diabetes presents with complaint of a lump on his anterior chest wall. Patient states this occurred 2 days prior to arrival. He also states that 4 days prior to arrival he had a trip and fall where he landed on the ground and struck his chest. Vital signs reviewed upon arrival. Patient is afebrile, mildly hypertensive and not hypoxic. He does not appear toxic or dehydrated. He is in no acute distress. Physical exam is significant for a small area of swelling just superior to the patient's scaphoid that is mildly tender with palpation. CT of the chest was obtained and showed a 3 x 5 cm area of soft tissue swelling which could represent seroma versus abscess. I think with the patient's recent trauma to the chest this is more likely to be a seroma and abscess. Patient's procedure was performed over 5 months ago. 03/14/18 23:06 Dr. Nestor o[address] for [address] findings. 03/14/18 23:[address] Zuleta who agrees that this is likely not an abscess but more of a seroma due to the patient's recent fall. I will provide the patient with a CAT scan report. Patient was evaluated and treated as appropriate for the patient' s presenting symptoms and complaint, with consideration of any critical or life threatening conditions that may be associated with their obtained history and exam as noted above. All results were discussed with patient and patient was provided a copy of they are CAT scan report to bring to their primary care physician. Patient provided the opportunity to ask questions, and express concerns. Patient was educated on treatments based on their presumed diagnosis as noted above. At this time we will discharge the patient with return precautions and follow-up recommendations. Verbal discharge instructions given a the bedside. Medication warnings reviewed. Patient is in agreement with this plan and has verbalized understanding of return precautions. After careful consideration I feel that that patient can be safely discharged from the emergency department, they were advised to followup with a primary care physician in 2-3 days. Dictation on this chart was performed using voice recognition software and may result in unintended grammatical, spelling, syntax or errors. 03/15/18 04:41 03/15/18 04:42 - Vital Signs Vital signs: Temp Pulse Resp BP Pulse Ox 99.0 F 74 18 157/75 H 95 03/14/18 18:49 03/14/18 23:18 03/14/18 23:18 03/14/18 23:18 03/14/18 23:18 - Diagnostic Test Radiology reviewed: Image reviewed, Reports reviewed - EKG Interpretation by Me EKG shows normal: Sinus rhythm Rate: Normal Rhythm: NSR Heart block present: 1st Degree When compared to previous EKG there are: Changes noted Discharge - Discharge Clinical Impression: Seroma due to trauma, End stage renal disease, Elevated blood pressure reading , Bilateral pulmonary infiltrates on chest x-ray Chest wall contusion Qualifiers: Encounter type: initial encounter Laterality: unspecified laterality Qualified Code(s): S20.219A - Contusion of unspecified front wall of thorax, initial encounter Fall Qualifiers: Encounter type: initial encounter Qualified Code(s): W19.XXXA - Unspecified fall, initial encounter Condition: Good Disposition: HOME, SELF-CARE Instructions: Chest Wall Pain ([facility]), Contusion ([facility]) Additional Instructions: Your CAT scan today showed a fluid collection that is likely due to your fall. I did speak to your primary care physician who agrees that this is unlikely an infection. Please follow-up with Dr. Zuleta in the next 3-5 days and bring him the CAT scan report. Prescriptions: Doxycycline Hyclate 100 mg PO BID #14 capsule Forms: Elevated Blood Pressure Referrals: FEI ZULETA MD [Primary Care Provider] - Follow up as needed
--- NOTE | 2018-03-14 21:20 | RADIOLOGY REPORT (SQ) ---
EXAM DESCRIPTION: CT CHEST WITHOUT IV CONTRAST COMPLETED DATE/TME: 03/14/2018 20:45 CLINICAL HISTORY: 62 years, Male, mass ant chest COMPARISON: Chest x-ray done on 02/03/2018 TECHNIQUE: CT of the chest was done without intravenous contrast in orthogonal planes Images stored on PACS. All CT scanners at this facility use dose modulation, iterative reconstruction, and/or weight based dosing when appropriate to reduce radiation dose to as low as reasonably achievable (ALARA). [facility]: Dose Right [facility]: CareDose [facility]: Dose Right [facility]: Teradose 4D [facility]: [employer] LIMITATIONS: None. FINDINGS: There is median sternotomy. Anterior to the inferior aspect of the sternum there is a 3.1 x 3.0 x 5.0 cm soft tissue swelling most likely representing a postsurgical seroma or developing subcutaneous abscess in this region There is cardiomegaly. Mild bilateral lower lobe and minimal right upper lobe infiltrate/atelectasis is noted, worse in the left lower lobe of the lung. There is tiny right-sided pleural effusion. There is mild aneurysmal dilatation of the ascending thoracic aorta measuring 4.1 cm. There is no pericardial effusion. Coronary artery calcifications are noted. There is no pathological lymphadenopathy in the mediastinum or the bilateral hilar regions.. Multilevel degenerative changes seen in the thoracic spine. Extensive atherosclerotic vascular wall calcifications are seen in the evaluated upper abdomen IMPRESSION: There is median sternotomy. Anterior to the inferior aspect of the sternum there is a 3.1 x 3.0 x 5.0 cm soft tissue swelling most likely representing a postsurgical seroma or developing subcutaneous abscess in this region There is cardiomegaly. Mild bilateral lower lobe and minimal right upper lobe infiltrate/atelectasis is noted, worse in the left lower lobe of the lung. There is tiny right-sided pleural effusion. There is mild aneurysmal dilatation of the ascending thoracic aorta measuring 4.1 cm. TECHNICAL DOCUMENTATION: Quality ID # 436: Final reports with documentation of one or more dose reduction techniques (e.g., Automated exposure control, adjustment of the mA and/or kV according to patient size, use of iterative reconstruction technique) 2010 [employer]- All Rights Reserved
[2018-03-14] MEDS ORDERED: HYDROMORPHONE HCL INJ/PF 2 MG/ML AMPULE IM ONE (21:25)
[2018-03-14] MEDS ORDERED: CEPHALEXIN 500 MG CAPSULE PO ONE (23:02)
[2018-03-14] MEDS ORDERED: SULFAMETHOXAZOLE/TRIMETHOPRIM 800-160 MG TABLET PO ONE (23:02)
[2018-03-14] MEDS ORDERED: OXYCODONE-ACETAMINOPHEN 5-325 MG TABLET PO ONE (23:06)
[2018-03-14 23:20] VITALS: BP 157/75
== END 2018-03-14 23:29 | disposition home or self-care (01) ==
LOC: ER 18:35
DX: S20.219A Contusion of unspecified front wall of thorax, initial encounter (principal); W19.XXXA Unspecified fall, initial encounter; I13.2 Hypertensive heart and chronic kidney disease with heart failure and with stage 5 chronic kidney disease, or end stage renal disease; I50.9 Heart failure, unspecified; E11.22 Type 2 diabetes mellitus with diabetic chronic kidney disease; N18.6 End stage renal disease; Z99.2 Dependence on renal dialysis; I25.10 Atherosclerotic heart disease of native coronary artery without angina pectoris; R91.8 Other nonspecific abnormal finding of lung field; Z95.1 Presence of aortocoronary bypass graft
CPT/HCPCS: 93005; 99285; 96372; 71250; 93010; J1170

== ENCOUNTER 2018-06-13 05:45 | Day surgery (SDC) | payer MEDICARE ==
[~2018-06-13 05:45] MED LIST: DIAZEPAM 5 MG TABLET ONE; DIAZEPAM 5 MG TABLET PO PRN; OXYCODONE-ACETAMINOPHEN 5-325 MG TABLET ONE; OXYCODONE-ACETAMINOPHEN 5-325 MG TABLET PO PRN
[2018-06-13 06:39] LABS: HEMATOCRIT 36.6 % (37.9-51.0); HEMOGLOBIN 11.7 g/dL (13.5-17.0); MEAN CORPUSCULAR HEMOGLOBIN 30.7 pg (27.0-33.4); MEAN CORPUSCULAR HGB CONC 31.9 g/dL (32.0-36.0); MEAN CORPUSCULAR VOLUME 96 fl (80-97); PLATELET COUNT 171 10^3/uL (150-450); RED CELL DISTRIBUTION WIDTH 25.5 % (11.5-14.0); WHITE BLOOD COUNT 4.9 10^3/uL (4.0-10.5)
[2018-06-13 06:46] LABS: ANION GAP 10 (5-19); BLOOD UREA NITROGEN 32 mg/dL (7-20); CALCIUM 8.7 mg/dL (8.4-10.2); CARBON DIOXIDE 30 mmol/L (22-30); CHLORIDE 100 mmol/L (98-107); GLUCOSE 100 mg/dL (75-110); POTASSIUM 5.1 mmol/L (3.6-5.0); SODIUM 139.6 mmol/L (137-145)
[2018-06-13] MEDS ORDERED: LIDOCAINE 0.5% INJ-PF (5 MG/ML) 50 ML SDV ONE (07:24)
[2018-06-13] MEDS ORDERED: FENTANYL CITRATE INJ/PF 100 MCG/2 ML AMPUL ONE (07:25)
[2018-06-13] MEDS ORDERED: MIDAZOLAM 2 MG/2 ML INJ ONE (07:25)
[2018-06-13] MEDS ORDERED: HEPARIN SOD (PORCINE) 5,000 UNIT/ML 1 ML SYRINGE ONE (07:25)
--- NOTE | 2018-06-13 10:29 | RADIOLOGY REPORT (SQ) ---
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 FLUOROSCOPY TIME: 4.1 minute. 115 images saved to PACS. TECHNIQUE: Intra-operative images acquired during surgical procedure to evaluate progress. NUMBER OF IMAGES: 115 images. LIMITATIONS: None. FINDINGS: Imaging in fluoroscopy during left upper extremity dialysis access evaluation and plasty b y Dr. Ocampo . Please refer to the operative report for further details. IMPRESSION: INTRA PROCEDURAL IMAGING ABOVE . COMMENT: Quality ID 145: Final reports for procedures using fluoroscopy that document radiation exp osure indices, or exposure time and number of fluorographic images (if radiation exposure indices are not available) Please consult full operative report of the attending physician for description of the procedure. TECHNICAL DOCUMENTATION: JOB ID: [id number] [employer]- All Rights Reserved Reading location - IP/workstation name: [email or web address]
--- NOTE | 2018-06-13 10:29 | RADIOLOGY REPORT (SQ) ---
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 FLUOROSCOPY TIME: 4.1 minute. 115 images saved to PACS. TECHNIQUE: Intra-operative images acquired during surgical procedure to evaluate progress. NUMBER OF IMAGES: 115 images. LIMITATIONS: None. FINDINGS: Imaging in fluoroscopy during left upper extremity dialysis access evaluation and plasty b y Dr. Ocampo . Please refer to the operative report for further details. IMPRESSION: INTRA PROCEDURAL IMAGING ABOVE . COMMENT: Quality ID 145: Final reports for procedures using fluoroscopy that document radiation exp osure indices, or exposure time and number of fluorographic images (if radiation exposure indices are not available) Please consult full operative report of the attending physician for description of the procedure. TECHNICAL DOCUMENTATION: JOB ID: [id number] [employer]- All Rights Reserved Reading location - IP/workstation name: [email or web address]
[2018-06-13 11:17] VITALS: BP 143/88
--- NOTE | 2018-06-13 11:34 | Discharge Summary ---
Discharge Summary (SDC) - Discharge Final Diagnosis: #1 malfunctioning AV fistula, left brachiobasilic. 2. End-stage renal disease on hemodialysis. 3. Coronary artery disease. 4. Diabetes mellitus type 2. Date of Surgery: 06/13/18 Discharge Date: 06/13/18 Condition: Fair Forms: ASU Anesthesia D/C Instruction, Discharge POC-Surgical Service Treatment or Instructions: Discharge home [after recovery per ASU criteria]. Diet , [renal],as tolerated, when fully awake advance as tolerated. Activities within moderation encouraged. Follow up in my office by appointment in about 2 months. Call for appointment. Leave wounds [covered], [keep clean and dry, until hemodialysis. Meds per med rec. May shower [in 48 hrs], [try to keep operated area as dry as possible]. Referrals: FEI ZULETA MD [Primary Care Provider] - ADIA ROWE MD [ACTIVE STAFF] - 06/22/18 9:15 am (Keep your scheduled follow-up appointment.) Discharge Diet: Other (Comments) - Renal. Diabetic. Respiratory Treatments at Home: Deep Breathing/Coughing Discharge Activity: Activity As Tolerated Report the Following to Your Physician Immediately: Shortness of Breath, Unusual Bleeding
--- NOTE | 2018-06-13 11:38 | PDOC H&P ---
General Chief Complaint: This patient was referred because of decreased fistula flows. - Diagnosis (1) Dialysis AV fistula malfunction Is this a Current Diagnosis?: Yes (2) End stage renal disease Is this a Current Diagnosis?: Yes (3) Atrial fibrillation Is this a Current Diagnosis?: Yes (4) CAD (coronary artery disease) Is this a Current Diagnosis?: Yes (5) Diabetes mellitus Is this a Current Diagnosis?: Yes (6) Hypertension Is this a Current Diagnosis?: Yes - Current Medications/Allergies Home Medications: Clopidogrel Bisulfate [Plavix 75 mg Tablet] 75 mg PO DAILY 01/30/18 Mirtazapine [Remeron] 30 mg PO QHS 01/30/18 Nitroglycerin [Nitrostat 0.4 mg (1/150 Gr) Tabs 25/Bottle] 1 tab SL Q5MP PRN 01/30/18 Pantoprazole Sodium [Protonix] 40 mg PO DAILY 01/30/18 Ramelteon [Rozerem] 8 mg PO QHS 01/30/18 Midodrine HCl [Proamatine 5 mg Tablet] 10 mg PO DAILY 06/13/18 Sevelamer Carbonate [Renvela] 800 mg PO QID 06/13/18 Allergies/Adverse Reactions: vancomycin [Vancomycin] Adverse Reaction (Unknown, Verified 10/19/17 07:42) molina syndrome Past Medical History Cardiac Medical History: Reports: Atrial Fibrillation, Congestive Heart Failure, Coronary Artery Disease, Myocardial Infarction - x 3,triple bypass in october, Hypertension, Peripheral Vascular Disease Pulmonary Medical History: Denies: Asthma, Bronchitis, Chronic Obstructive Pulmonary Disease (COPD), Pneumonia Neurological Medical History: Denies: Seizures Endocrine Medical History: Reports: Diabetes Mellitus Type 2 Renal/ Medical History: Reports: End Stage Renal Disease - Dialysis dependent GI Medical History: Reports: Gastroesophageal Reflux Disease Denies: Hepatitis, Hiatal Hernia Musculoskeltal Medical History: Denies: Arthritis Skin Medical History: Denies: Psoriasis Psychiatric Medical History: Reports: Depression Traumatic Medical History: Denies: Traumatic Brain Injury Hematology: Denies: Anemia, Sickle Cell Disease Past Surgical History Past Surgical History: Reports: Cardiac Catheterization, Coronary Artery Bypass Graft - X3 vessel on October 26, 2017, Orthopedic Surgery - Right big toe amputation in 2014, left third and fourth toe amputation, Vascular Surgery, Other - Cervical laminectomy in 2012 Denies: Pacemaker Family History Family History: CAD, Hypertension, Malignancy. denies: DM Parental Family History Reviewed: No Children Family History Reviewed: No Sibling(s) Family History Reviewed.: No Social History Smoking Status: Former Smoker Frequency of Alcohol Use: Rare Hx Recreational Drug Use: No Drugs: None Hx Prescription Drug Abuse: No Physical Exam Vital Signs: Temp Pulse Resp BP Pulse Ox 98.3 F 62 16 143/88 H 98 06/13/18 10:55 06/13/18 10:55 06/13/18 10:55 06/13/18 10:55 06/13/18 10:55 Intake & Output 06/12/18 06/13/18 06/14/18 06:59 06:59 06:59 Weight 82.4 kg 82.4 kg Additional comments: Constitutional: Well-developed well-nourished [place] gentleman. No apparent acute distress. Eyes: Mucous membranes pink and moist, pupils equal and reactive to light. Conjunctiva normal. Cornea normal. ENT: Hearing grossly normal. External pinna normal to inspection. Teeth mostly intact. Tongue normal to inspection. Cardiac: Heart sounds normal. Respiratory: Normal respiratory effort. Psychiatric: Judgment, memory, insight seem normal. Mood is pleasant and appropriate. Extremities: Upper extremities show normal range of movement. Pulses present noted to the radial arteries. Capillary refill normal. No cyanosis noted. No muscle wasting noted. Left arm has a ectatic firm brachiobasilic fistula with excellent normal bruit. Impression/Plan Plan: This patient with a malfunctioning left brachiocephalic fistula is indicated for intervention and possible angioplasty.
--- NOTE | 2018-06-13 11:45 | Operative Report ---
Operative Report DATE OF SURGERY: 06/13/18 PREOPERATIVE DIAGNOSIS: #1 malfunctioning AV fistula, left brachiobasilic. 2. End-stage renal disease on hemodialysis. 3. Coronary artery disease. 4. Diabetes mellitus type 2 POSTOPERATIVE DIAGNOSIS: #1 [address] AV fistula, left brachiobasilic. 2. End-stage renal disease on hemodialysis. 3. Coronary artery disease. 4. Diabetes mellitus type 2 OPERATION: 1. Intrauterine fistula left brachiocephalic. 2. Angioplasty, central. 3. Angioplasty with drug-eluting. 4. Angiogram and interpretation. SURGEON: ADIA MORENO STRATEGY ANALYST: None. ANESTHESIA: Moderate Sedation TISSUE REMOVED OR ALTERED: Not applicable. COMPLICATIONS: None. ESTIMATED BLOOD LOSS: 5 mL. INTRAOPERATIVE FINDINGS: Of a well founded, ectatic left arm brachiobasilic fistula. Angiogram was pertinent for a stenosis at the cephalic to subclavian junction into separate stenoses in the left innominate vein. These anastomosis are between 80 and 90% of the adjacent lumen. There were corrected with angioplasty with about 5% remaining stenosis of the cephalic subclavian junction, elimination of the visual gradient in the left innominate. Collaterals were noted from the mid subclavian and these persisted although are less prominent after the procedure. The fistula itself was quite firm initially, softer and more appropriate at the end of the procedure. A drug- eluting balloon was used centrally in the hope of reducing the need for intervention at this position. PROCEDURE: PROCEDURE: After verifying the procedure and having obtained informed consent, the patient's left arm was prepared with Chlorhexidine and draped out with sterile linen. Local anesthesia infiltrated. Percutaneous access into the fistula ,[ antegrade], obtained about [6 cm] from the arteriovenous anastomosis using a micro puncture needle followed by micro puncture wire and then a micro puncture catheter. A 0.035 [place] wire was inserted, and over this, a 7 Arabic short introducer was placed. Angiogram demonstrated the aforementioned findings. Angioplasty was elected. This was followed by a [8 -mm] angioplasty balloon . Angioplasty was Done at the culprit areas using a Clean [employer] 8 cm long high-pressure balloon. Inflating inflating using a 3 mils syringe and later on, an insufflator. Pressures were as needed and up to 10 josefina with an insufflator]. A 10 mm 4 cm long angioplasty balloon was now used to inflated these areas. Up to 10 josefina essentially and up to 6 josefina at the cephalic subclavian junction. The latter in deference to the relative size mismatch. Completion angiogram was done which demonstrated adequate result. A drug- eluting balloon was now brought onto the table, 6 cm long. It was used to inflate primarily over the stenotic area in the left innominate. It was inflated for 4 minutes up to the burst of the level of 11 josefina. Once this was done it was also reinflated for a minute each more centrally and also over the cephalic subclavian junction. This is not in an effort to use every bit of medication as optimally as possible. Completion angiogram demonstrated [satisfactory result]. The instrumentation was now withdrawn over hand pressure for 10 minutes . Dressings applied, procedure concluded. Exposure time: 4.1 minutes. Radiation: 68.13 Raquel Vega. Contrast: 25 mL of Isovue-300, low osmolality. DICTATING PHYSICIAN: ADIA ROWE M.D. cc: ADIA ROWE M.D. ([id number]) >>
== END 2018-06-13 10:55 | disposition home or self-care (01) ==
LOC: CCL 05:45
PROVIDERS: ATTEND Surgery
DX: T82.858A Stenosis of other vascular prosthetic devices, implants and grafts, initial encounter (principal); Y83.2 Surgical operation with anastomosis, bypass or graft as the cause of abnormal reaction of the patient, or of later complication, without mention of misadventure at the time of the procedure; I13.2 Hypertensive heart and chronic kidney disease with heart failure and with stage 5 chronic kidney disease, or end stage renal disease; I50.9 Heart failure, unspecified; E11.22 Type 2 diabetes mellitus with diabetic chronic kidney disease; N18.6 End stage renal disease; I73.9 Peripheral vascular disease, unspecified; Z99.2 Dependence on renal dialysis; I25.10 Atherosclerotic heart disease of native coronary artery without angina pectoris; I25.2 Old myocardial infarction; I48.91 Unspecified atrial fibrillation; K21.9 Gastro-esophageal reflux disease without esophagitis; Z88.1 Allergy status to other antibiotic agents; Z79.899 Other long term (current) drug therapy; Z89.411 Acquired absence of right great toe; Z89.422 Acquired absence of other left toe(s)
CPT/HCPCS: 36415; 85027; 80048; 36907; 36902; C1725 ×2; C2623; C1752; C1887; C1894; C1769; J2250; J1644 ×2; A9270 ×2; J3010; J3490

== ENCOUNTER 2018-07-11 13:20 | Emergency (ER) | payer MEDICARE ==
--- NOTE | 2018-07-11 14:51 | ER Document Report ---
ED Medical Screen (RME) - General Chief Complaint: Chest Pain > 30 Stated Complaint: CHEST PAIN Time Seen by Provider: 07/11/18 14:43 Primary Care Provider: FEI ZULETA MD [Primary Care Provider] - Follow up as needed Notes: 63-year-old male to the emergency department chief complaint of chest pain. Patient has hypertension, diabetes, renal failure on dialysis. Having pain on the right side of his chest with some shortness of breath. Pain with deep inspiration. Also having redness on his post open heart surgery site. Skin is red around the scar. I have greeted and performed a rapid initial assessment of this patient. A comprehensive ED assessment and evaluation of the patient, analysis of test results and completion of the medical decision making process will be conducted by additional ED providers. TRAVEL OUTSIDE OF THE [place] IN LAST 30 DAYS: No - Related Data Allergies/Adverse Reactions: vancomycin [Vancomycin] Adverse Reaction (Unknown, Verified 07/11/18 13:27) molina syndrome Past Medical History - Past Medical History Cardiac Medical History: Reports: Hx Atrial Fibrillation, Hx Congestive Heart Failure, Hx Coronary Artery Disease, Hx Heart Attack - x 3,triple bypass in october, Hx Hypertension, Hx Peripheral Vascular Disease Pulmonary Medical History: Denies: Hx Asthma, Hx Bronchitis, Hx COPD, Hx Pneumonia Neurological Medical History: Denies: Hx Cerebrovascular Accident, Hx Seizures Endocrine Medical History: Reports: Hx Diabetes Mellitus Type 2 Renal/ Medical History: Reports: Hx End Stage Renal Disease - Dialysis dependent, Hx Hemodialysis, Hx Renal Insufficiency. Denies: Hx Peritoneal Dialysis GI Medical History: Reports: Hx Gastroesophageal Reflux Disease. Denies: Hx Hepatitis, Hx Hiatal Hernia, Hx Ulcer Musculoskeltal Medical History: Denies Hx Arthritis Skin Medical History: Denies Hx Psoriasis Psychiatric Medical History: Reports: Hx Depression Traumatic Medical History: Denies: Hx Traumatic Brain Injury Infectious Medical History: Denies: Hx Hepatitis Past Surgical History: Reports: Hx Cardiac Catheterization, Hx Coronary Artery Bypass Graft - X3 vessel on October 26, 2017, Hx Orthopedic Surgery - Right big toe amputation in 2014, left third and fourth toe amputation, Hx Vascular Surgery, Other - Cervical laminectomy in 2012. Denies: Hx Open Heart Surgery, Hx Pacemaker - Immunizations Hx Diphtheria, Pertussis, Tetanus Vaccination: Yes History of Influenza Vaccine for 03/2017 - 08/2017 Season: Yes Influenza Administration Date for 03/2017 - 08/2017 Season: 03/06/18 Physical Exam - Vital signs Vitals: Temp Pulse Resp BP Pulse Ox 98.8 F 69 18 156/104 H 94 07/11/18 13:45 07/11/18 13:45 07/11/18 13:45 07/11/18 13:45 07/11/18 13:45 - Notes Notes: Tender to palpation on the right side of the chest. The midline thoracotomy scar looks red and inflamed. Course - Vital Signs Vital signs: Temp Pulse Resp BP Pulse Ox 98.8 F 69 18 156/104 H 94 07/11/18 13:45 07/11/18 13:45 07/11/18 13:45 07/11/18 13:45 07/11/18 13:45 Doctor's Discharge - Discharge Referrals: FEI ZULETA MD [Primary Care Provider] - Follow up as needed
[2018-07-11] MEDS ORDERED: MORPHINE SULFATE 10 MG/ML INJ IV ONE (14:52)
[2018-07-11 15:24] LABS: ABSOLUTE EOSINOPHILS # (AUTO) 0.8 10^3/uL (0.0-0.6); ABSOLUTE LYMPHOCYTES (AUTO) 0.5 10^3/uL (0.5-4.7); ABSOLUTE MONOCYTES (AUTO) 1.1 10^3/uL (0.1-1.4); ABSOLUTE NEUT (AUTO) 4.8 10^3/uL (1.7-8.2); BASOPHILS % (AUTO) 0.5 % (0-2); EOSINOPHILS % (AUTO) 11.6 % (0-6); HEMATOCRIT 33.1 % (37.9-51.0); LYMPHOCYTES % (AUTO) 7.2 % (13-45); MEAN CORPUSCULAR HEMOGLOBIN 30.8 pg (27.0-33.4); MEAN CORPUSCULAR HGB CONC 33.2 g/dL (32.0-36.0); MEAN CORPUSCULAR VOLUME 93 fl (80-97); MONOCYTES % (AUTO) 14.7 % (3-13); PLATELET COUNT 268 10^3/uL (150-450); RED BLOOD COUNT 3.57 10^6/uL (4.35-5.55); RED CELL DISTRIBUTION WIDTH 25.7 % (11.5-14.0); TOTAL CELLS COUNTED % (AUTO) 100 %; WHITE BLOOD COUNT 7.2 10^3/uL (4.0-10.5)
--- NOTE | 2018-07-11 15:36 | RADIOLOGY REPORT (SQ) ---
EXAM DESCRIPTION: CHEST 2 VIEWS COMPLETED DATE/TIME: 07/11/2018 3:21 pm REASON FOR STUDY: chest pain COMPARISON: 02/03/2018 EXAM PARAMETERS: NUMBER OF VIEWS: two views TECHNIQUE: Digital Frontal and Lateral radiographic views of the chest acquired. RADIATION DOSE: NA LIMITATIONS: none FINDINGS: LUNGS AND PLEURA: Persistent small left-sided effusion with patchy left basilar opacities, not significantly changed from prior. Decreased size of the right-sided pleural effusion with mild residual effusion and associated basilar hazy opacification. No pneumothorax. MEDIASTINUM AND HILAR STRUCTURES: No masses or contour abnormalities. HEART AND VASCULAR STRUCTURES: Enlarged cardiac silhouette, stable. Evidence of prior CABG. Atheros clerotic aorta. BONES: Median sternotomy changes. Evidence of prior kyphoplasty at T12. HARDWARE: Post CABG changes. Kyphoplasty cement. Prior cholecystectomy. OTHER: No other significant finding. IMPRESSION: Small bilateral pleural effusion with associated bibasilar hazy opacities, likely atelec tasis although infection is not excluded. Reduction in the size of the right pleural effusion compare d to prior exam. TECHNICAL DOCUMENTATION: JOB ID: [id number] [employer]- All Rights Reserved Reading location - IP/workstation name: [email or web address]
[2018-07-11 15:49] LABS: ANISOCYTOSIS 3+; OVALOCYTES SLIGHT; PLATELET COMMENT ADEQUATE; POIKILOCYTOSIS SLIGHT; SCHISTOCYTES 1+; TARGET CELLS SLIGHT
[2018-07-11] MEDS ORDERED: ONDANSETRON HCL INJ/PF 4 MG/2 ML SDV IV ONE (17:40)
--- NOTE | 2018-07-11 17:44 | ER Document Report ---
ED General - General Chief Complaint: Chest Pain > 30 Stated Complaint: CHEST PAIN Time Seen by Provider: 07/11/18 14:43 Primary Care Provider: FEI ZULETA MD [Primary Care Provider] - Follow up as needed Mode of Arrival: Ambulatory Information source: Patient, Parent, [facility] Records Notes: 63-year-old male with congestive heart failure, coronary artery disease, per ipheral vascular disease, atrial fibrillation, hypertension, with history of CABG in October 2017 performed at [facility] presents with complaint of 3 days of right-sided chest pain that he describes as a constant pressure like pain with intermittent stabbing, pain that radiates down his right arm. Patient admits to associated diaphoresis, shortness of breath. Patient also reports 3 days of a nonproductive cough. Patient denies any fever, chills, abdominal pain, nausea, vomiting. Patient does take oxycodone chronically for chronic neck and back pain. TRAVEL OUTSIDE OF THE [place] IN LAST 30 DAYS: No - HPI Onset: Other Onset/Duration: Intermittent Quality of pain: Stabbing Severity: Moderate Associated symptoms: Chest pain, Nonproductive cough, Shortness of breath, Sweating. denies: Body/muscle aches, Chills, Fever, Leg swelling Exacerbated by: Movement Relieved by: Denies Similar symptoms previously: No Recently seen / treated by doctor: No - Related Data Allergies/Adverse Reactions: vancomycin [Vancomycin] Adverse Reaction (Unknown, Verified 07/11/18 13:27) molina syndrome Past Medical History - General Information source: Patient, Relative, [facility] Records - Social History Smoking Status: Never Smoker Chew tobacco use (# tins/day): No Frequency of alcohol use: None Drug Abuse: None Lives with: Family Family History: CAD, Hypertension, Malignancy. denies: DM Patient has suicidal ideation: No Patient has homicidal ideation: No - Past Medical History Cardiac Medical History: Reports: Hx Atrial Fibrillation, Hx Congestive Heart Failure, Hx Coronary Artery Disease, Hx Heart Attack - x 3,triple bypass in october, Hx Hypertension, Hx Peripheral Vascular Disease Pulmonary Medical History: Denies: Hx Asthma, Hx Bronchitis, Hx COPD, Hx Pneumonia Neurological Medical History: Denies: Hx Cerebrovascular Accident, Hx Seizures Endocrine Medical History: Reports: Hx Diabetes Mellitus Type 2 Renal/ Medical History: Reports: Hx End Stage Renal Disease - Dialysis dependent, Hx Hemodialysis, Hx Renal Insufficiency. Denies: Hx Peritoneal Dialysis GI Medical History: Reports: Hx Gastroesophageal Reflux Disease. Denies: Hx Hepatitis, Hx Hiatal Hernia, Hx Ulcer Musculoskeletal Medical History: Denies Hx Arthritis Skin Medical History: Denies Hx Psoriasis Psychiatric Medical History: Reports: Hx Depression Traumatic Medical History: Denies: Hx Traumatic Brain Injury Infectious Medical History: Denies: Hx Hepatitis Past Surgical History: Reports: Hx Cardiac Catheterization, Hx Coronary Artery Bypass Graft - X3 vessel on October 26, 2017, Hx Orthopedic Surgery - Right big toe amputation in 2014, left third and fourth toe amputation, Hx Vascular Surgery, Other - Cervical laminectomy in 2012. Denies: Hx Open Heart Surgery, Hx Pacemaker - Immunizations Hx Diphtheria, Pertussis, Tetanus Vaccination: Yes Hx Pneumococcal Vaccination: 02/05/15 Review of Systems - Review of Systems Constitutional: denies: Chills, Fever, Weakness EENT: denies: Blurred vision Cardiovascular: Chest pain, Dyspnea. denies: Dizziness, Edema Respiratory: Cough, Short of breath Gastrointestinal: denies: Abdominal pain, Nausea, Vomiting, Poor appetite Genitourinary: denies: Dysuria Male Genitourinary: denies: Testicular pain Musculoskeletal: Back pain - Chronic Skin: Change in color - Erythema associated with sternotomy scar Neurological/Psychological: denies: Weakness, Headaches -: Yes All other systems reviewed and negative Physical Exam - Vital signs Vitals: Temp Pulse Resp BP Pulse Ox 98.8 F 69 18 156/104 H 94 07/11/18 13:45 07/11/18 13:45 07/11/18 13:45 07/11/18 13:45 07/11/18 13:45 - Notes Notes: PHYSICAL EXAMINATION: GENERAL: Well-appearing, well-nourished and in no acute distress. HEAD: Atraumatic, normocephalic. EYES: Pupils equal round and reactive to light, extraocular movements intact, sclera anicteric, conjunctiva are normal. ENT: Nares patent, oropharynx clear without exudates. Moist mucous membranes. NECK: Normal range of motion, supple without lymphadenopathy LUNGS: Breath sounds clear to auscultation bilaterally and equal. No wheezes rales or rhonchi. Surgical scar clean dry and intact but with associated erythema. HEART: Regular rate and rhythm without murmurs ABDOMEN: Soft, nontender, nondistended abdomen. No guarding, no rebound. No masses appreciated. Musculoskeletal: Normal range of motion, no pitting or edema. No cyanosis. NEUROLOGICAL: Cranial nerves grossly intact. Normal speech, normal gait. N ormal sensory, motor exams PSYCH: Normal mood, normal affect. SKIN: Warm, Dry, normal turgor, no rashes or lesions noted. Course - Re-evaluation Re-evalutation: 07/11/18 22:04 Laboratory 07/11/18 07/11/18 07/11/18 15:08 15:08 15:08 WBC 7.2 RBC 3.57 L Hgb 11.0 L Hct 33.1 L MCV 93 MCH 30.8 MCHC 33.2 RDW 25.7 H Plt Count 268 Seg Neutrophils % 66.0 Lymphocytes % 7.2 L Monocytes % 14.7 H Eosinophils % 11.6 H Basophils % 0.5 Absolute Neutrophils 4.8 Absolute Lymphocytes 0.5 Absolute Monocytes 1.1 Absolute Eosinophils 0.8 H Absolute Basophils 0.0 Platelet Comment ADEQUATE Poikilocytosis SLIGHT Anisocytosis 3+ Target Cells SLIGHT Ovalocytes SLIGHT Schistocytes 1+ PT INR APTT Sodium Cancelled Potassium Cancelled Chloride Cancelled Carbon Dioxide Cancelled Anion Gap Cancelled BUN Cancelled Creatinine Cancelled Est GFR ( Amer) Cancelled Est GFR (Non-Af Amer) Cancelled Glucose Cancelled Calcium Cancelled Total Bilirubin Cancelled Direct Bilirubin Cancelled Neonat Total Bilirubin Cancelled Neonat Direct Bilirubin Cancelled Neonat Indirect Bili Cancelled AST Cancelled ALT Cancelled Alkaline Phosphatase Cancelled Troponin I Cancelled NT-Pro-B Natriuret Pep Total Protein Cancelled Albumin Cancelled 07/11/18 07/11/18 07/11/18 17:26 17:26 17:26 WBC RBC Hgb Hct MCV MCH MCHC RDW Plt Count Seg Neutrophils % Lymphocytes % Monocytes % Eosinophils % Basophils % Absolute Neutrophils Absolute Lymphocytes Absolute Monocytes Absolute Eosinophils Absolute Basophils Platelet Comment Poikilocytosis Anisocytosis Target Cells Ovalocytes Schistocytes PT INR APTT Sodium 138.5 Potassium 5.3 H Chloride 98 Carbon Dioxide 24 Anion Gap 17 BUN 58 H Creatinine 10.08 H Est GFR ( Amer) 6 L Est GFR (Non-Af Amer) 5 L Glucose 113 H Calcium 8.8 Total Bilirubin 0.5 Direct Bilirubin 0.5 H Neonat Total Bilirubin Not Reportable Neonat Direct Bilirubin Not Reportable Neonat Indirect Bili Not Reportable AST 22 ALT 24 Alkaline Phosphatase 77 Troponin I 0.330 NT-Pro-B Natriuret Pep 76179 H Total Protein 7.9 Albumin 3.9 07/11/18 07/11/18 17:26 19:54 WBC RBC Hgb Hct MCV MCH MCHC RDW Plt Count Seg Neutrophils % Lymphocytes % Monocytes % Eosinophils % Basophils % Absolute Neutrophils Absolute Lymphocytes Absolute Monocytes Absolute Eosinophils Absolute Basophils Platelet Comment Poikilocytosis Anisocytosis Target Cells Ovalocytes Schistocytes PT 14.6 INR 1.09 APTT 36.2 H Sodium Potassium Chloride Carbon Dioxide Anion Gap BUN Creatinine Est GFR ( Amer) Est GFR (Non-Af Amer) Glucose Calcium Total Bilirubin Direct Bilirubin Neonat Total Bilirubin Neonat Direct Bilirubin Neonat Indirect Bili AST ALT Alkaline Phosphatase Troponin I 0.466 NT-Pro-B Natriuret Pep Total Protein Albumin Chest X-Ray 07/11/18 14:51 IMPRESSION: Small bilateral pleural effusion with associated bibasilar hazy opacities, likely atelectasis although infection is not excluded. Reduction in the size of the right pleural effusion compared to prior exam. Chest CT 07/11/18 18:14 IMPRESSION: 1. There is bibasilar consolidation, increased compared to prior examination, particularly in the left lung. At least some component of this is chronic given the presence of bronchiectasis although there may be acutely superimposed airspace disease. There is a small right pleural effusion. 2. 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 There is extensive edema about the anterior chest. Temp Pulse Resp BP Pulse Ox 98.8 F 69 20 169/80 H 93 07/11/18 13:45 07/11/18 13:45 07/11/18 21:02 07/11/18 21:02 07/11/18 21:02 07/11/18 22:05 63-year-old male with congestive heart failure, coronary artery disease, peripheral vascular disease, atrial fibrillation, hypertension, with history of CABG in October 2017 performed at [facility] presents with complaint of 3 days of right-sided chest pain that he describes as a constant pressure like pain with intermittent stabbing pain that radiates down his right arm. Patient admits to associated diaphoresis, shortness of breath. Patient also reports 3 days of a nonproductive cough. Upon arrival patient was placed on awake overnight monitor and EKG was obtained. Patient received aspirin, morphine and reported no improvement of his pain. Sublingual nitro was then administered without alleviation of pain. Patient did receive 0.5 mg of Dilaudid and on reevaluation still reports pain. CBC shows no leukocytosis and a stable anemia. CMP consistent with end-stage renal disease. Patient's troponin is elevated at 0.31 with his delta troponin being 0.41. Patient's BNP is almost 100,000. Heparin drip initiated. Patient's marble mechanic helper is located at [facility]. Because of the patient's complex cardiac history, renal failure, heart failure he will be transferred. Accepting physician is Dr. Herrera. Patient is agreeable with transfer. 07/11/18 22:07 - Vital Signs Vital signs: Temp Pulse Resp BP Pulse Ox 98.8 F 69 20 169/80 H 93 07/11/18 13:45 07/11/18 13:45 07/11/18 21:02 07/11/18 21:02 07/11/18 21:02 - Laboratory Result Diagrams: 07/11/18 15:08 07/11/18 17:26 Laboratory results interpreted by me: 07/11/18 07/11/18 07/11/18 15:08 17:26 17:26 RBC 3.57 L Hgb 11.0 L Hct 33.1 L RDW 25.7 H Lymphocytes % 7.2 L Monocytes % 14.7 H Eosinophils % 11.6 H Absolute Eosinophils 0.8 H APTT Potassium 5.3 H BUN 58 H Creatinine 10.08 H Est GFR ( Amer) 6 L Est GFR (Non-Af Amer) 5 L Glucose 113 H Direct Bilirubin 0.5 H NT-Pro-B Natriuret Pep 47084 H 07/11/18 17:26 RBC Hgb Hct RDW Lymphocytes % Monocytes % Eosinophils % Absolute Eosinophils APTT 36.2 H Potassium BUN Creatinine Est GFR ( Amer) Est GFR (Non-Af Amer) Glucose Direct Bilirubin NT-Pro-B Natriuret Pep - Diagnostic Test Radiology reviewed: Image reviewed, Reports reviewed - EKG Interpretation by Me EKG shows normal: Sinus rhythm Rate: Normal Rhythm: NSR [place]/QRS: RBBB Heart block present: 1st Degree When compared to previous EKG there are: No significant change Critical Care Note - Critical Care Note Total time excluding time spent on procedures (mins): 40 - Minutes of critical care time spent in direct contact evaluating and reevaluating the patient, treating symptoms, reviewing labs and studies and speaking with family and consultants excluding any procedures Discharge - Discharge Clinical Impression: Unstable angina, Elevated troponin, End stage renal disease, Pleural effusion, right, CKD (chronic kidney disease) stage V requiring chronic dialysis, NSTEMI (non-ST elevated myocardial infarction) Congestive heart failure Qualifiers: Heart failure type: unspecified Heart failure chronicity: chronic Qualified Code(s): I50.9 - Heart failure, unspecified Coronary artery disease Qualifiers: Coronary Disease-Associated Artery/Lesion type: unspecified vessel or lesion type [place] vs. transplanted heart: [place] heart Associated angina: with unstable angina Qualified Code(s): I25.110 - Atherosclerotic heart disease of [place] coronary artery with unstable angina pectoris Hypertension Qualifiers: Hypertension type: unspecified Qualified Code(s): I10 - Essential (primary) hypertension Chest pain Qualifiers: Chest pain type: unspecified Qualified Code(s): R07.9 - Chest pain, unspecified Condition: Good Disposition: [facility] Forms: Elevated Blood Pressure Referrals: FEI ZULETA MD [Primary Care Provider] - Follow up as needed
[2018-07-11] MEDS: NITROGLYCERIN 0.4 MG/TAB 25 TAB/BOTTLE SL PRN ×2 (17:46→17:55)
[2018-07-11] MEDS ORDERED: HYDROMORPHONE HCL INJ/PF 2 MG/ML AMPULE IV ONE (18:25)
[2018-07-11 18:28] LABS: ALANINE AMINOTRANSFERASE 24 U/L (21-72); ALBUMIN 3.9 g/dL (3.5-5.0); ALKALINE PHOSPHATASE 77 U/L (38-126); ANION GAP 17 (5-19); ASPARTATE AMINO TRANSFERASE 22 U/L (17-59); BILIRUBIN,DIRECT 0.5 mg/dL (0.0-0.4); BILIRUBIN,TOTAL 0.5 mg/dL (0.2-1.3); BLOOD UREA NITROGEN 58 mg/dL (7-20); CALCIUM 8.8 mg/dL (8.4-10.2); CARBON DIOXIDE 24 mmol/L (22-30); CHLORIDE 98 mmol/L (98-107); GLUCOSE 113 mg/dL (75-110); POTASSIUM 5.3 mmol/L (3.6-5.0); SODIUM 138.5 mmol/L (137-145); TOTAL PROTEIN 7.9 g/dL (6.3-8.2)
--- NOTE | 2018-07-11 18:46 | RADIOLOGY REPORT (SQ) ---
EXAM DESCRIPTION: CT CHEST WITHOUT COMPLETED DATE/TIME: 07/11/2018 6:28 pm REASON FOR STUDY: Pleural effusion COMPARISON: Same day chest radiograph, CT chest, 03/14/2018 TECHNIQUE: CT scan performed of the chest without intravenous contrast. Images reviewed with lung, soft tissue and bone windows. Reconstructed coronal and sagittal MPR images reviewed. All images st ored on PACS. All CT scanners at this facility use dose modulation, iterative reconstruction, and/or weight based d osing when appropriate to reduce radiation dose to as low as reasonably achievable (ALARA). [facility]: Dose Right [facility]: CareDose [facility]: Dose Right [facility]: Teradose 4D [facility]: [employer] RADIATION DOSE: CT Rad equipment meets quality standard of care and radiation dose reduction techniq ues were employed. CTDIvol: 13.1 mGy. DLP: 493 mGy-cm. mGy. LIMITATIONS: No technical limitations. FINDINGS: LUNGS AND PLEURA: There is bibasilar consolidation, increased compared to prior examinatio n, particularly in the left lung. At least some component of this is chronic given the presence of b ronchiectasis. There is a small right pleural effusion. HILAR AND MEDIASTINAL STRUCTURES: No identified masses or abnormal nodes. No obvious aneurysm. HEART AND VASCULAR STRUCTURES: Cardiomegaly status post median sternotomy with extensive three vessel coronary artery calcification and stents. 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 There is extensive edema about the anterior chest. UPPER ABDOMEN: No significant findings. Limited exam. THYROID AND OTHER SOFT TISSUES: No masses. No adenopathy. BONES: No significant finding. HARDWARE: None in the chest. OTHER: No other significant findings. IMPRESSION: 1. There is bibasilar consolidation, increased compared to prior examination, particular ly in the left lung. At least some component of this is chronic given the presence of bronchiectasis although there may be acutely superimposed airspace disease. There is a small right pleural effusio n. 2. 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 There is extensive edema about the anterior chest. TECHNICAL DOCUMENTATION: JOB ID: [id number] Quality ID # [id number]: Final reports with documentation of one or more dose reduction techniques (e.g., Au tomated exposure control, adjustment of the mA and/or kV according to patient size, use of iterative reconstruction technique) 2010 [employer]- All Rights Reserved Reading location - IP/workstation name: [email or web address]
[2018-07-11] MEDS ORDERED: HEPARIN SODIUM,PORCINE/D5W 25,000 UNIT/250 ML RTUINJ IV PRN (19:32)
[2018-07-11 19:46] LABS: INTERNATIONAL RATION (INR) 1.09; PARTIAL THROMBOPLASTIN TIME 36.2 SEC (23.5-35.8); PROTHROMBIN TIME 14.6 SEC (11.4-15.4)
[2018-07-11] MEDS ORDERED: HYDROMORPHONE HCL INJ/PF 2 MG/ML AMPULE IV PRN (20:16)
--- NOTE | 2018-07-11 21:50 | EKG REPORT ---
SEVERITY:- ABNORMAL ECG - SINUS OR ECTOPIC ATRIAL RHYTHM FIRST DEGREE AV BLOCK RIGHT BUNDLE BRANCH BLOCK CONSIDER INFERIOR VT : Confirmed by: Rachid Eugene 11-Jul-2018 21:50:16
--- NOTE | 2018-07-11 21:51 | EKG REPORT ---
SEVERITY:- ABNORMAL ECG - SINUS RHYTHM FIRST DEGREE AV BLOCK RBBB AND LPFB : Confirmed by: Rachid Eugene 11-Jul-2018 21:50:58
[2018-07-11] MEDS ORDERED: GABAPENTIN 100 MG CAPSULE PO ONE (23:12)
[2018-07-11 23:47] VITALS: BP 168/93
== END 2018-07-11 23:53 | disposition short-term general hospital (02) ==
LOC: ER 13:20
DX: I25.110 Atherosclerotic heart disease of native coronary artery with unstable angina pectoris (principal); I13.2 Hypertensive heart and chronic kidney disease with heart failure and with stage 5 chronic kidney disease, or end stage renal disease; I50.9 Heart failure, unspecified; I21.4 Non-ST elevation (NSTEMI) myocardial infarction; E11.22 Type 2 diabetes mellitus with diabetic chronic kidney disease; N18.6 End stage renal disease; E11.51 Type 2 diabetes mellitus with diabetic peripheral angiopathy without gangrene; I44.0 Atrioventricular block, first degree; J90 Pleural effusion, not elsewhere classified; I45.10 Unspecified right bundle-branch block; R61 Generalized hyperhidrosis; R06.02 Shortness of breath; R05 Cough; M54.2 Cervicalgia; M54.9 Dorsalgia, unspecified; G89.29 Other chronic pain; Z79.891 Long term (current) use of opiate analgesic; Z95.1 Presence of aortocoronary bypass graft; Z82.49 Family history of ischemic heart disease and other diseases of the circulatory system
CPT/HCPCS: 93005; 96376; 99291; 96375; 96365; 96366; 36415; 85025; 85610; 85730; 80053; 84484; 83880; 71046; 71250; 93010; J1644; J2270; J1170; J2405; A9270

== ENCOUNTER 2018-07-18 22:27 | Emergency (ER) | payer OTHER, MEDICARE ==
[2018-07-18] MEDS ORDERED: ASPIRIN 81 MG TABLET, CHEWABLE PO ONE (23:00)
--- NOTE | 2018-07-18 23:41 | RADIOLOGY REPORT (SQ) ---
EXAM DESCRIPTION: XR CHEST 2 VIEWS COMPLETED DATE/TME: 07/18/2018 23:01 CLINICAL HISTORY: 63 years Male, chest pain COMPARISON: 07/11/18 NUMBER OF VIEWS/TECHNIQUE: 1/AP FINDINGS: Small patchy and streaky opacity of the left lung base. Sternotomy. Cardiac/mediastinal hardware/clips. Upper abdominal clips. Atherosclerotic vascular disease. No pneumothorax. Stable bony thorax. IMPRESSION: No significant change.
[2018-07-19] MEDS ORDERED: MORPHINE SULFATE 10 MG/ML INJ IV ONE (01:16)
[2018-07-19] MEDS ORDERED: ONDANSETRON HCL INJ/PF 4 MG/2 ML SDV IV ONE (01:16)
[2018-07-19 01:18] LABS: HEMATOCRIT 34.4 % (37.9-51.0); HEMOGLOBIN 11.1 g/dL (13.5-17.0); MEAN CORPUSCULAR HEMOGLOBIN 30.2 pg (27.0-33.4); MEAN CORPUSCULAR HGB CONC 32.4 g/dL (32.0-36.0); MEAN CORPUSCULAR VOLUME 93 fl (80-97); PLATELET COUNT 223 10^3/uL (150-450); RED BLOOD COUNT 3.68 10^6/uL (4.35-5.55); RED CELL DISTRIBUTION WIDTH 25.1 % (11.5-14.0); WHITE BLOOD COUNT 7.2 10^3/uL (4.0-10.5)
[2018-07-19 01:36] LABS: ALANINE AMINOTRANSFERASE 18 U/L (21-72); ALBUMIN 4.5 g/dL (3.5-5.0); ALKALINE PHOSPHATASE 102 U/L (38-126); ANION GAP 19 (5-19); ASPARTATE AMINO TRANSFERASE 22 U/L (17-59); BILIRUBIN,DIRECT 0.6 mg/dL (0.0-0.4); BILIRUBIN,TOTAL 0.7 mg/dL (0.2-1.3); BLOOD UREA NITROGEN 39 mg/dL (7-20); CALCIUM 9.2 mg/dL (8.4-10.2); CARBON DIOXIDE 27 mmol/L (22-30); CHLORIDE 93 mmol/L (98-107); CREATINE KINASE 91 U/L (55-170); GLUCOSE 147 mg/dL (75-110); POTASSIUM 4.5 mmol/L (3.6-5.0); SODIUM 138.5 mmol/L (137-145); TOTAL PROTEIN 9.3 g/dL (6.3-8.2)
[2018-07-19 01:45] LABS: ABSOLUTE LYMPHOCYTES# (MANUAL) 1.4 10^3/uL (0.5-4.7); ABSOLUTE MONOCYTES # (MANUAL) 0.6 10^3/uL (0.1-1.4); ABSOLUTE NEUTROPHILS# (MANUAL) 4.5 10^3/uL (1.7-8.2); BASOPHILS % (MANUAL) 0 % (0-2); EOSINOPHILS % (MANUAL) 8 % (0-6); LYMPHOCYTES % (MANUAL) 19 % (13-45); MONOCYTES % (MANUAL) 9 % (3-13); NUCLEATED RED BLOOD CELLS 1 /100 WBC (0); SEGMENTED NEUTROPHILS % (MAN) 63 % (42-78); TOTAL CELLS COUNTED 100
[2018-07-19 01:47] LABS: ANISOCYTOSIS 3+; CREATINE KINASE MB 1.8 ng/mL (<4.55); OVALOCYTES SLIGHT; PLATELET COMMENT ADEQUATE; POIKILOCYTOSIS SLIGHT; TARGET CELLS SLIGHT; TOXIC VACUOLATION PRESENT
[2018-07-19 01:52] LABS: TROPONIN I 0.408 ng/mL
[2018-07-19] MEDS ORDERED: HYDROMORPHONE HCL INJ/PF 2 MG/ML AMPULE IV ONE (02:12)
--- NOTE | 2018-07-19 03:02 | ER Document Report ---
ED General - General TRAVEL OUTSIDE OF THE [place] IN LAST 30 DAYS: No <LUCINA MOYER - Last Filed: 07/19/18 02:33> <TONY MEZA - Last Filed: 07/19/18 04:09> - General Chief Complaint: Chest Pain Stated Complaint: CHEST PAIN Time Seen by Provider: 07/19/18 01:08 Primary Care Provider: FEI ZULETA MD [Primary Care Provider] - Follow up as needed - [facility] Notes: Patient presents to the emergency department for evaluation of right-sided chest pain. He describes it as an aching and sharp pain. He has had pain like this similarly in the past. He actually notes he had it a few weeks ago. He was seen here and transferred to [place] where his public relations assistant was. He states he had a cardiac MRI. He was discharged home without any sort of intervention. He states the pain that he has today has been present for over 2 days. His last episode lasted over 3 days. He denies any associated shortness of breath, nausea, diaphoresis, near syncope. 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 denies: DM - Past Medical History Cardiac Medical History: Reports: Hx Atrial Fibrillation, Hx Congestive Heart Failure, Hx Coronary Artery Disease, Hx Heart Attack - x 3,triple bypass in october, Hx Hypertension, Hx Peripheral Vascular Disease Pulmonary Medical History: Denies: Hx Asthma, Hx Bronchitis, Hx COPD, Hx Pneumonia Neurological Medical History: Denies: Hx Cerebrovascular Accident, Hx Seizures Endocrine Medical History: Reports: Hx Diabetes Mellitus Type 2 Renal/ Medical History: Reports: Hx End Stage Renal Disease - Dialysis dependent, Hx Hemodialysis, Hx Renal Insufficiency. Denies: Hx Peritoneal Dialysis GI Medical History: Reports: Hx Gastroesophageal Reflux Disease. Denies: Hx Hepatitis, Hx Hiatal Hernia, Hx Ulcer Musculoskeletal Medical History: Denies Hx Arthritis Skin Medical History: Denies Hx Psoriasis Psychiatric Medical History: Reports: Hx Depression Traumatic Medical History: Denies: Hx Traumatic Brain Injury Infectious Medical History: Denies: Hx Hepatitis Past Surgical History: Reports: Hx Cardiac Catheterization, Hx Coronary Artery Bypass Graft - X3 vessel on October 26, 2017, Hx Orthopedic Surgery - Right big toe amputation in 2014, left third and fourth toe amputation, Hx Vascular Surgery, Other - Cervical laminectomy in 2012. Denies: Hx Open Heart Surgery, Hx Pacemaker - Immunizations Hx Diphtheria, Pertussis, Tetanus Vaccination: Yes Hx Pneumococcal Vaccination: 02/05/15 <LUCINA MOYER - Last Filed: 07/19/18 02:33> Review of Systems - Review of Systems Constitutional: No symptoms reported EENT: No symptoms reported Cardiovascular: See HPI Respiratory: No symptoms reported Gastrointestinal: No symptoms reported Skin: No symptoms reported Neurological/Psychological: No symptoms reported <LUCINA MOYER - Last Filed: 07/19/18 02:33> Physical Exam <LUCINA MOYER - Last Filed: 07/19/18 02:33> - Vital signs Vitals: Temp Pulse Resp BP Pulse Ox 99.3 F 62 16 139/100 H 92 07/18/18 23:02 07/18/18 23:02 07/18/18 23:02 07/18/18 23:02 07/18/18 23:02 Notes: Mildly hypertensive, otherwise unremarkable (LUCINA MOYER) - Notes Notes: Vital signs reviewed, please refer to chart. Patient is normocephalic, atraumatic. Pupils equal round, reactive to light. Neck is supple without meningismus. Heart is regular rate and rhythm. Examination of the chest wall reveals a well-healed surgical scar from former CABG. Patient is markedly tender over the anterior pectoralis muscle on the right. No fluctuance, induration, or edema noted. Lungs are clear to auscultation bilaterally. Abdomen is soft, nontender, normoactive bowel sounds throughout. Extremities without cyanosis, clubbing, edema. Peripheral pulses are equal. Skin is warm and dry. Patient is awake, alert, neurological exam is nonfocal. (LUCINA MOYER) Course - Laboratory Result Diagrams: 07/19/18 00:52 07/19/18 00:52 <LUCINA MOYER - Last Filed: 07/19/18 02:33> - Laboratory Result Diagrams: 07/19/18 00:52 07/19/18 00:52 <TONY MEZA - Last Filed: 07/19/18 04:09> - Re-evaluation Re-evalutation: 07/19/18 03:06 Patient presents to the emergency department for evaluation of right-sided chest pain. This patient has had this pain for over 2 days during this episode. He has had similar pain for which she was evaluated in the recent past. He was sent to [facility] and had a negative cardiac MRI per patient. His pain is reproducible pain. It is nonexertional. It has no associated symptoms. The patient himself asks repeatedly for "stronger pain medication." His troponin is elevated but I believe this is secondary to his end-stage renal disease status. He is actually due for dialysis tomorrow morning. His troponin is lower than it had been recently. Serial troponin ordered. Assuming it does not rise significantly, patient will be discharged with close follow-up. He is to return to the emergency department with worsening or new concerning symptoms of any sort. (LUCINA MOYER) 07/19/18 03:53 Patient received in sign out with repeat troponin pending. Patient reevaluated ending of chest wall pain which patient has had on multiple previous visits and was recently admitted. 07/19/18 04:09 Repeated troponin is downtrending. Patient will be discharged home in stable condition. (TONY MEZA) - Vital Signs Vital signs: Temp Pulse Resp BP Pulse Ox 98.3 F 62 16 139/50 H 95 07/19/18 02:35 07/18/18 23:02 07/19/18 03:02 07/19/18 03:02 07/19/18 03:02 - Laboratory Laboratory results interpreted by me: 07/19/18 07/19/18 00:52 00:52 RBC 3.68 L Hgb 11.1 L Hct 34.4 L RDW 25.1 H Eosinophils % (Manual) 8 H Chloride 93 L BUN 39 H Creatinine 8.33 H Est GFR ( Amer) 8 L Est GFR (Non-Af Amer) 6 L Glucose 147 H Direct Bilirubin 0.6 H ALT 18 L Total Protein 9.3 H - EKG Interpretation by Me Additional EKG results interpreted by me: 07/19/18 03:08 Sinus mechanism with rate of 69 bpm. Right bundle branch block. No significant change from prior. (LUCINA MOYER) Discharge <LUCINA MOYER - Last Filed: 07/19/18 02:33> <MEZATONYALINE - Last Filed: 07/19/18 04:09> - Discharge Clinical Impression: Chest wall pain Condition: Good Disposition: HOME, SELF-CARE Instructions: Chest Wall Pain ([facility]) Additional Instructions: Follow-up with your primary care physician next week and your public relations assistant as soon as possible. Return to the emergency department with worsening or new concerning symptoms. Referrals: FEI ZULETA MD [Primary Care Provider] - Follow up as needed
[2018-07-19 04:21] VITALS: BP 149/58
--- NOTE | 2018-07-19 07:37 | EKG REPORT ---
SEVERITY:- ABNORMAL ECG - SINUS RHYTHM ATRIAL PREMATURE COMPLEX FIRST DEGREE AV BLOCK RIGHT BUNDLE BRANCH BLOCK : Confirmed by: Shraddha Angel MD 19-Jul-2018 07:36:08
== END 2018-07-19 04:21 | disposition home or self-care (01) ==
LOC: ER 22:27
DX: R07.89 Other chest pain (principal); I12.0 Hypertensive chronic kidney disease with stage 5 chronic kidney disease or end stage renal disease; N18.6 End stage renal disease; E11.22 Type 2 diabetes mellitus with diabetic chronic kidney disease; E11.51 Type 2 diabetes mellitus with diabetic peripheral angiopathy without gangrene; Z99.2 Dependence on renal dialysis; I45.10 Unspecified right bundle-branch block; I25.10 Atherosclerotic heart disease of native coronary artery without angina pectoris; R74.8 Abnormal levels of other serum enzymes; I25.2 Old myocardial infarction; Z95.1 Presence of aortocoronary bypass graft
CPT/HCPCS: 93005; 99284; 96374; 96375; 36415; 82553; 82550; 85025; 80053; 84484; 71046; 93010; J2270; J1170; J2405

== ENCOUNTER 2018-07-27 01:37 | Emergency (ER) | payer OTHER, MEDICARE ==
--- NOTE | 2018-07-27 02:03 | ER Document Report ---
ED Medical Screen (RME) - General Chief Complaint: Chest Pain Stated Complaint: CHEST PAIN Time Seen by Provider: 07/27/18 02:00 Primary Care Provider: FEI ZULETA MD [Primary Care Provider] - Follow up as needed Notes: 63-year-old gentleman coming in today with mid chest pain. States this is his third time to this hospital for the exact same thing. Multiple workups. Transfer to [place]. No cause for the pain is found. Patient states was not given anything to manage the pain with. I have treated and performed a rapid initial assessment of this patient. A comprehensive ED assessment and evaluation of the patient, analysis of test results and completion of medical decision making process will be conducted by additional ED providers. PHYSICAL EXAMINATION: GENERAL: Well-appearing, well-nourished and in no acute distress. A&Ox4. Answers questions appropriately. LUNGS: Breath sounds clear to auscultation bilaterally and equal. No wheezes rales or rhonchi. HEART: Regular rate and rhythm without murmurs, rubs, gallops. ABDOMEN: non-tender Extremities: No cyanosis, clubbing, or edema b/l. NEUROLOGICAL: Normal speech, normal gait. PSYCH: Normal mood, normal affect. TRAVEL OUTSIDE OF THE [place] IN LAST 30 DAYS: No - Related Data Allergies/Adverse Reactions: vancomycin [Vancomycin] Adverse Reaction (Unknown, Verified 07/19/18 00:57) molina syndrome Past Medical History - Social History Chew tobacco use (# tins/day): No Frequency of alcohol use: None Drug Abuse: None - Past Medical History Cardiac Medical History: Reports: Hx Atrial Fibrillation, Hx Congestive Heart Failure, Hx Coronary Artery Disease, Hx Heart Attack - x 3,triple bypass in october, Hx Hypertension, Hx Peripheral Vascular Disease Pulmonary Medical History: Denies: Hx Asthma, Hx Bronchitis, Hx COPD, Hx Pneumonia Neurological Medical History: Denies: Hx Cerebrovascular Accident, Hx Seizures Endocrine Medical History: Reports: Hx Diabetes Mellitus Type 2 Renal/ Medical History: Reports: Hx End Stage Renal Disease - Dialysis dependent, Hx Hemodialysis, Hx Renal Insufficiency. Denies: Hx Peritoneal Dialysis GI Medical History: Reports: Hx Gastroesophageal Reflux Disease. Denies: Hx Hepatitis, Hx Hiatal Hernia, Hx Ulcer Musculoskeltal Medical History: Denies Hx Arthritis Skin Medical History: Denies Hx Psoriasis Psychiatric Medical History: Reports: Hx Depression Traumatic Medical History: Denies: Hx Traumatic Brain Injury Infectious Medical History: Denies: Hx Hepatitis Past Surgical History: Reports: Hx Cardiac Catheterization, Hx Cardiac Surgery - triple bypass, Hx Coronary Artery Bypass Graft - X3 vessel on October 26, 2017, Hx Orthopedic Surgery - Right big toe amputation in 2014, left third and fourth toe amputation, Hx Vascular Surgery, Other - Cervical laminectomy in 2012. Denies: Hx Open Heart Surgery, Hx Pacemaker - Immunizations Hx Diphtheria, Pertussis, Tetanus Vaccination: Yes History of Influenza Vaccine for 03/2017 - 08/2017 Season: Yes Influenza Administration Date for 03/2017 - 08/2017 Season: 03/06/18 Physical Exam - Vital signs Vitals: Temp Pulse Resp BP Pulse Ox 99.6 F 65 18 149/45 H 95 07/27/18 01:43 07/27/18 01:43 07/27/18 01:43 07/27/18 01:43 07/27/18 01:43 Course - Vital Signs Vital signs: Temp Pulse Resp BP Pulse Ox 99.6 F 65 18 149/45 H 95 07/27/18 01:43 07/27/18 01:43 07/27/18 01:43 07/27/18 01:43 07/27/18 01:43 Doctor's Discharge - Discharge Referrals: FEI ZULETA MD [Primary Care Provider] - Follow up as needed
[2018-07-27 05:16] LABS: ALANINE AMINOTRANSFERASE 11 U/L (21-72); ALBUMIN 4.4 g/dL (3.5-5.0); ALKALINE PHOSPHATASE 89 U/L (38-126); ANION GAP 12 (5-19); ASPARTATE AMINO TRANSFERASE 29 U/L (17-59); BILIRUBIN,DIRECT 0.7 mg/dL (0.0-0.4); BILIRUBIN,TOTAL 0.7 mg/dL (0.2-1.3); BLOOD UREA NITROGEN 28 mg/dL (7-20); CALCIUM 9.2 mg/dL (8.4-10.2); CARBON DIOXIDE 33 mmol/L (22-30); CHLORIDE 96 mmol/L (98-107); GLUCOSE 116 mg/dL (75-110); POTASSIUM 4.8 mmol/L (3.6-5.0); SODIUM 140.8 mmol/L (137-145); TOTAL PROTEIN 9.5 g/dL (6.3-8.2)
[2018-07-27 05:20] LABS: ABSOLUTE BASOPHILS # (AUTO) 0.1 10^3/uL (0.0-0.2); ABSOLUTE EOSINOPHILS # (AUTO) 0.6 10^3/uL (0.0-0.6); ABSOLUTE LYMPHOCYTES (AUTO) 0.6 10^3/uL (0.5-4.7); ABSOLUTE MONOCYTES (AUTO) 0.9 10^3/uL (0.1-1.4); ABSOLUTE NEUT (AUTO) 5.1 10^3/uL (1.7-8.2); BASOPHILS % (AUTO) 1.4 % (0-2); EOSINOPHILS % (AUTO) 8.7 % (0-6); HEMATOCRIT 34.6 % (37.9-51.0); HEMOGLOBIN 11.3 g/dL (13.5-17.0); LYMPHOCYTES % (AUTO) 7.8 % (13-45); MEAN CORPUSCULAR HEMOGLOBIN 30.8 pg (27.0-33.4); MEAN CORPUSCULAR HGB CONC 32.8 g/dL (32.0-36.0); MEAN CORPUSCULAR VOLUME 94 fl (80-97); MONOCYTES % (AUTO) 12.6 % (3-13); PLATELET COUNT 213 10^3/uL (150-450); RED BLOOD COUNT 3.68 10^6/uL (4.35-5.55); RED CELL DISTRIBUTION WIDTH 23.8 % (11.5-14.0); SEGMENTED NEUTROPHILS % (AUTO) 69.5 % (42-78); TOTAL CELLS COUNTED % (AUTO) 100 %; WHITE BLOOD COUNT 7.3 10^3/uL (4.0-10.5)
[2018-07-27 05:50] LABS: ANISOCYTOSIS 3+; HYPOCHROMASIA 1+; PLATELET COMMENT ADEQUATE; POLYCHROMASIA 1+; TEAR DROP CELLS 1+
[2018-07-27 06:17] VITALS: BP 124/61
--- NOTE | 2018-07-27 06:30 | RADIOLOGY REPORT (SQ) ---
EXAM DESCRIPTION: XR CHEST 1 VIEW COMPLETED DATE/TME: 07/27/2018 05:05 CLINICAL HISTORY: cp COMPARISON: 07/18/2018 FINDINGS: Single frontal view of the chest. Atherosclerotic calcification of the thoracic aorta. Prior median sternotomy. Cardiomegaly. Elevation left hemidiaphragm. Patchy bibasilar opacities. No large effusion. No pneumothorax. No acute osseous abnormalities. Upper abdominal soft tissues are unremarkable. IMPRESSION: 1. Cardiomegaly. 2. Patchy bibasilar opacities slightly increased from the comparison study. This may be related to atelectasis however developing pneumonic process could produce a similar appearance. Continued radiographic follow-up to resolution recommended.
[2018-07-27] MEDS ORDERED: LIDOCAINE 5% (700 MG) TRANSDERMAL ADH..PATCH TP ONE (06:38)
--- NOTE | 2018-07-27 06:44 | ER Document Report ---
ED General - General Chief Complaint: Chest Pain Stated Complaint: CHEST PAIN Time Seen by Provider: 07/27/18 02:00 Primary Care Provider: FEI ZULETA MD [Primary Care Provider] - Follow up as needed TRAVEL OUTSIDE OF THE [place] IN LAST 30 DAYS: No - HPI Patient complains to provider of: Chest pain Notes: Patient coming in for evaluation of chest wall pain ongoing for approximately 1 month. Patient states painful to touch painful movement. Patient is end-stage renal disease patient with hemodialysis scheduled every Tuesday. Patient states he did receive his dialysis day prior to arrival. Patient denies any trauma. Patient states he has been seen by his primary care physician and cardiology notes ablation of his pain. Patient otherwise is resting comfortably upon my evaluation denies any recent travel denies any nausea vomiting fevers chills diarrhea. Patient points to the middle of his chest as the area that hurts - Related Data Allergies/Adverse Reactions: vancomycin [Vancomycin] Adverse Reaction (Unknown, Verified 07/19/18 00:57) molina syndrome Past Medical History - Social History Smoking Status: Never Smoker Chew tobacco use (# tins/day): No Frequency of alcohol use: None Drug Abuse: None Family History: CAD, Hypertension, Malignancy. denies: DM Patient has suicidal ideation: No Patient has homicidal ideation: No - Past Medical History Cardiac Medical History: Reports: Hx Atrial Fibrillation, Hx Congestive Heart Failure, Hx Coronary Artery Disease, Hx Heart Attack - x 3,triple bypass in october, Hx Hypertension, Hx Peripheral Vascular Disease Pulmonary Medical History: Denies: Hx Asthma, Hx Bronchitis, Hx COPD, Hx Pneumonia Neurological Medical History: Denies: Hx Cerebrovascular Accident, Hx Seizures Endocrine Medical History: Reports: Hx Diabetes Mellitus Type 2 Renal/ Medical History: Reports: Hx End Stage Renal Disease - Dialysis dependent, Hx Hemodialysis, Hx Renal Insufficiency. Denies: Hx Peritoneal Dialysis GI Medical History: Reports: Hx Gastroesophageal Reflux Disease. Denies: Hx Hepatitis, Hx Hiatal Hernia, Hx Ulcer Musculoskeletal Medical History: Denies Hx Arthritis Skin Medical History: Denies Hx Psoriasis Psychiatric Medical History: Reports: Hx Depression Traumatic Medical History: Denies: Hx Traumatic Brain Injury Infectious Medical History: Denies: Hx Hepatitis Past Surgical History: Reports: Hx Cardiac Catheterization, Hx Cardiac Surgery - triple bypass, Hx Coronary Artery Bypass Graft - X3 vessel on October 26, 2017, Hx Orthopedic Surgery - Right big toe amputation in 2014, left third and fourth toe amputation, Hx Vascular Surgery, Other - Cervical laminectomy in 2013. Denies: Hx Open Heart Surgery, Hx Pacemaker - Immunizations Hx Diphtheria, Pertussis, Tetanus Vaccination: Yes Hx Pneumococcal Vaccination: 02/05/15 Review of Systems - Review of Systems Constitutional: No symptoms reported EENT: No symptoms reported Cardiovascular: Chest pain Respiratory: No symptoms reported Gastrointestinal: No symptoms reported Genitourinary: No symptoms reported Male Genitourinary: No symptoms reported Musculoskeletal: No symptoms reported Skin: No symptoms reported Hematologic/Lymphatic: No symptoms reported Neurological/Psychological: No symptoms reported -: Yes All other systems reviewed and negative Physical Exam - Vital signs Vitals: Temp Pulse Resp BP Pulse Ox 99.6 F 65 18 149/45 H 95 07/27/18 01:43 07/27/18 01:43 07/27/18 01:43 07/27/18 01:43 07/27/18 01:43 Interpretation: Normal - General General appearance: Appears well, Alert - HEENT Head: Normocephalic, Atraumatic Eyes: Normal Pupils: PERRL - Respiratory Respiratory status: No respiratory distress Chest status: Tender - Tenderness to palpation of the patient anterior chest wall reproducing the patient's pain Breath sounds: Normal Chest palpation: Normal - Cardiovascular Rhythm: Regular Heart sounds: Normal auscultation Murmur: No - Abdominal Inspection: Normal Distension: No distension Bowel sounds: Normal Tenderness: Nontender Organomegaly: No organomegaly - Back Back: Normal, Nontender - Extremities General upper extremity: Normal inspection, Nontender, Normal color, Normal ROM, Normal temperature General lower extremity: Normal inspection, Nontender, Normal color, Normal ROM, Normal temperature, Normal weight bearing. No: Mercedes's sign - Neurological Neuro grossly intact: Yes Cognition: Normal Orientation: AAOx4 [place] Coma Scale Eye Opening: Spontaneous [place] Coma Scale Verbal: Oriented [place] Coma Scale Motor: Obeys Commands Doug Coma Scale Total: 15 Speech: Normal Motor strength normal: LUE, RUE, LLE, RLE Sensory: Normal - Psychological Associated symptoms: Normal affect, Normal mood - Skin Skin Temperature: Warm Skin Moisture: Dry Skin Color: Normal Course - Re-evaluation Re-evalutation: 07/27/18 13:33 Laboratory studies not show any signs of any acute disease. Patient's chest wall pain is reproducible on examination. EKG does not show any concerning etiology. Recommend patient follow back up with his PCP for pain control we will try lidocaine patches Tylenol. Patient states understanding was discharged home. - Vital Signs Vital signs: Temp Pulse Resp BP Pulse Ox 99.6 F 65 16 124/61 95 07/27/18 01:43 07/27/18 01:43 07/27/18 06:00 07/27/18 05:28 07/27/18 01:43 - Laboratory Result Diagrams: 07/27/18 03:15 07/27/18 03:15 Laboratory results interpreted by me: 07/27/18 07/27/18 03:15 03:15 RBC 3.68 L Hgb 11.3 L Hct 34.6 L RDW 23.8 H Lymphocytes % 7.8 L Eosinophils % 8.7 H Chloride 96 L Carbon Dioxide 33 H BUN 28 H Creatinine 6.07 H Est GFR ( Amer) 11 L Est GFR (Non-Af Amer) 9 L Glucose 116 H Direct Bilirubin 0.7 H ALT 11 L Total Protein 9.5 H Discharge - Discharge Clinical Impression: Chest wall pain, Diabetes mellitus, ESRD (end stage renal disease) Condition: Good Disposition: HOME, SELF-CARE Instructions: Chest Wall Pain ([facility]), Chest Pain of Unclear Cause ([facility]) Additional Instructions: Your evaluation is very consistent with chest wall pain costochondritis. I would highly recommend using the lidocaine patches as prescribed these are also available [id number] and recommend taking Tylenol for your pain control following up with your primary care physician for further evaluation and pain control Prescriptions: Lidocaine [Lidoderm 5% (700 mg) Transdermal Patch] 1 patch TP DAILY #30 adh..patch Referrals: FEI ZULETA MD [Primary Care Provider] - Follow up as needed
--- NOTE | 2018-07-27 07:43 | EKG REPORT ---
SEVERITY:- ABNORMAL ECG - SINUS RHYTHM FIRST DEGREE AV BLOCK RIGHT BUNDLE BRANCH BLOCK : Confirmed by: Marco Antonio Padilla MD 27-Jul-2018 07:42:32
== END 2018-07-27 06:57 | disposition home or self-care (01) ==
LOC: ER 01:37
DX: R07.89 Other chest pain (principal); I13.2 Hypertensive heart and chronic kidney disease with heart failure and with stage 5 chronic kidney disease, or end stage renal disease; E11.22 Type 2 diabetes mellitus with diabetic chronic kidney disease; N18.6 End stage renal disease; I50.9 Heart failure, unspecified; Z99.2 Dependence on renal dialysis
CPT/HCPCS: 36415; 71045; 80053; 84484; 85025; 93005; 93010; 99284

== ENCOUNTER → 2018-08-08 | Outpatient (CLI) | payer MEDICARE ==
--- NOTE | 2018-08-08 16:23 | RADIOLOGY REPORT (SQ) ---
EXAM DESCRIPTION: CHEST PA/LATERAL COMPLETED DATE/TIME: 08/08/2018 4:11 pm REASON FOR STUDY: CHEST WALL PAIN COMPARISON: No previous EXAM PARAMETERS: NUMBER OF VIEWS: two views TECHNIQUE: Digital Frontal and Lateral radiographic views of the chest acquired. RADIATION DOSE: NA LIMITATIONS: none FINDINGS: LUNGS AND PLEURA: On the right side, few Brandon lines are present at the right lung base, question fluid overload or congestive failure. Mild pulmonary vascular congestion without pleural ef fusion or pneumothorax. On the left side, chronic appearing volume loss with partial collapse of the left lower lobe is prese nt. Bandlike consolidation just above the left hemidiaphragm. No pleural effusion. No pneumothorax . Left upper lobe is hyperlucent. MEDIASTINUM AND HILAR STRUCTURES: No masses or contour abnormalities. HEART AND VASCULAR STRUCTURES: Moderate cardiomegaly with old sternotomy for CABG BONES: No acute findings. HARDWARE: None in the chest. OTHER: Diffuse arterial vascular calcification throughout the soft tissues IMPRESSION: Chronic bandlike volume loss and consolidation at the left lung base. Right lung is well inflated with pulmonary vascular prominence and few Brandon lines worrisome for flu id overload or congestive failure. TECHNICAL DOCUMENTATION: JOB ID: [id number] [employer]- All Rights Reserved Reading location - IP/workstation name: [email or web address]
== END ==
LOC: OD 15:56 → MERGE 15:56
PROVIDERS: ATTEND Family Medicine
DX: R07.89 Other chest pain (principal)
CPT/HCPCS: 71046

== ENCOUNTER 2018-08-13 17:25 | Emergency (ER) | payer OTHER, MEDICARE ==
--- NOTE | 2018-08-13 18:45 | ER Document Report ---
ED Medical Screen (RME) - General Chief Complaint: Syncope Stated Complaint: SYNCOPE Time Seen by Provider: 08/13/18 18:44 Primary Care Provider: FEI ZULETA MD [Primary Care Provider] - Follow up as needed Mode of Arrival: Medic Information source: Patient, Relative TRAVEL OUTSIDE OF THE [place] IN LAST 30 DAYS: No - HPI Patient complains to provider of: syncope Onset: This afternoon - pt. with possible syncopal episode earllier this afternoon. Is ESRD pt. with last HD 2 days ago - Related Data Allergies/Adverse Reactions: vancomycin [Vancomycin] Adverse Reaction (Unknown, Verified 08/08/18 20:43) molina syndrome Past Medical History - Past Medical History Cardiac Medical History: Reports: Hx Atrial Fibrillation, Hx Congestive Heart Failure, Hx Coronary Artery Disease, Hx Heart Attack - x 3,triple bypass in october, Hx Hypertension, Hx Peripheral Vascular Disease Pulmonary Medical History: Denies: Hx Asthma, Hx Bronchitis, Hx COPD, Hx Pneumonia Neurological Medical History: Denies: Hx Cerebrovascular Accident, Hx Seizures Endocrine Medical History: Reports: Hx Diabetes Mellitus Type 2 Renal/ Medical History: Reports: Hx End Stage Renal Disease - Dialysis dependent, Hx Hemodialysis, Hx Renal Insufficiency. Denies: Hx Peritoneal Dialysis GI Medical History: Reports: Hx Gastroesophageal Reflux Disease. Denies: Hx Hepatitis, Hx Hiatal Hernia, Hx Ulcer Musculoskeltal Medical History: Denies Hx Arthritis Skin Medical History: Denies Hx Psoriasis Psychiatric Medical History: Reports: Hx Depression Traumatic Medical History: Denies: Hx Traumatic Brain Injury Infectious Medical History: Denies: Hx Hepatitis Past Surgical History: Reports: Hx Cardiac Catheterization, Hx Cardiac Surgery - triple bypass, Hx Coronary Artery Bypass Graft - X3 vessel on October 26, 2017, Hx Orthopedic Surgery - Right big toe amputation in 2014, left third and fourth toe amputation, Hx Vascular Surgery, Other - Cervical laminectomy in 2012. Denies: Hx Open Heart Surgery, Hx Pacemaker - Immunizations Hx Diphtheria, Pertussis, Tetanus Vaccination: Yes History of Influenza Vaccine for 03/2017 - 08/2017 Season: Yes Influenza Administration Date for 03/2017 - 08/2017 Season: 03/06/18 Physical Exam - Vital signs Vitals: Temp Pulse Resp BP Pulse Ox 98.3 F 66 16 132/83 H 93 08/13/18 18:24 08/13/18 18:24 08/13/18 18:24 08/13/18 18:24 08/13/18 18:24 Course - Vital Signs Vital signs: Temp Pulse Resp BP Pulse Ox 98.3 F 66 16 132/83 H 93 08/13/18 18:24 08/13/18 18:24 08/13/18 18:24 08/13/18 18:24 08/13/18 18:24 Doctor's Discharge - Discharge Referrals: FEI ZULETA MD [Primary Care Provider] - Follow up as needed
[2018-08-13 19:39] LABS: ABSOLUTE BASOPHILS # (AUTO) 0.1 10^3/uL (0.0-0.2); ABSOLUTE EOSINOPHILS # (AUTO) 0.2 10^3/uL (0.0-0.6); ABSOLUTE LYMPHOCYTES (AUTO) 0.5 10^3/uL (0.5-4.7); ABSOLUTE MONOCYTES (AUTO) 0.5 10^3/uL (0.1-1.4); ABSOLUTE NEUT (AUTO) 5.7 10^3/uL (1.7-8.2); BASOPHILS % (AUTO) 0.9 % (0-2); EOSINOPHILS % (AUTO) 2.2 % (0-6); HEMATOCRIT 30.2 % (37.9-51.0); HEMOGLOBIN 9.7 g/dL (13.5-17.0); LYMPHOCYTES % (AUTO) 7.2 % (13-45); MEAN CORPUSCULAR HEMOGLOBIN 29.6 pg (27.0-33.4); MEAN CORPUSCULAR HGB CONC 32.1 g/dL (32.0-36.0); MEAN CORPUSCULAR VOLUME 92 fl (80-97); MONOCYTES % (AUTO) 7.1 % (3-13); PLATELET COUNT 273 10^3/uL (150-450); RED BLOOD COUNT 3.28 10^6/uL (4.35-5.55); RED CELL DISTRIBUTION WIDTH 24.3 % (11.5-14.0); SEGMENTED NEUTROPHILS % (AUTO) 82.6 % (42-78); TOTAL CELLS COUNTED % (AUTO) 100 %
[2018-08-13 19:52] LABS: ALANINE AMINOTRANSFERASE 21 U/L (21-72); ALBUMIN 4.5 g/dL (3.5-5.0); ALKALINE PHOSPHATASE 145 U/L (38-126); ANION GAP 16 (5-19); ASPARTATE AMINO TRANSFERASE 27 U/L (17-59); BILIRUBIN,DIRECT 0.7 mg/dL (0.0-0.4); BILIRUBIN,TOTAL 0.8 mg/dL (0.2-1.3); BLOOD UREA NITROGEN 51 mg/dL (7-20); CALCIUM 9.8 mg/dL (8.4-10.2); CARBON DIOXIDE 26 mmol/L (22-30); CHLORIDE 93 mmol/L (98-107); CREATINE KINASE 53 U/L (55-170); GLUCOSE 139 mg/dL (75-110); SODIUM 134.5 mmol/L (137-145); TOTAL PROTEIN 9.9 g/dL (6.3-8.2)
[2018-08-13 20:00] LABS: ANISOCYTOSIS 3+; HYPOCHROMASIA 1+; POIKILOCYTOSIS 1+; POLYCHROMASIA 2+; TEAR DROP CELLS SLIGHT
[2018-08-13 20:01] LABS: PLATELET COMMENT ADEQUATE
--- NOTE | 2018-08-13 20:01 | ER Document Report ---
ED General - General Chief Complaint: Syncope Stated Complaint: SYNCOPE Time Seen by Provider: 08/13/18 18:44 Primary Care Provider: FEI ZULETA MD [Primary Care Provider] - Follow up tomorrow Mode of Arrival: Medic Notes: The patient is a 63-year-old male with dialysis dependence, history of coronary artery disease status post triple-vessel bypass in October 2017, presents with complaints of either syncope or falling asleep. reports that the patient was sitting in the chair today, was effectively leaning over the chair, looks extremely tired and then actually fell out of the chair. The patient and the report that when he hit the ground he immediately woke up. Since arriving here in the emergency permit the patient has had repeated episodes where he appears to just not off to sleep witnessed by multiple staff members including me. The patient reports that he has chronic chest pain that is a aching, continuous diffuse chest pain that is not new or different today. He notes that he had some nausea and one episode of vomiting today. He denies any shortness of breath. No pleuritic pain. Uncertain of whether or not he has had similar symptoms in the past. He is due for dialysis tomorrow morning. TRAVEL OUTSIDE OF THE [place] 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 Past Medical History - General Information source: Patient, Relative - Social History Smoking Status: Former Smoker Chew tobacco use (# tins/day): No Frequency of alcohol use: None Drug Abuse: None Lives with: Spouse/Significant other Family History: Malignancy, CAD, Hypertension Patient has suicidal ideation: No Patient has homicidal ideation: No - Past Medical History Cardiac Medical History: Reports: Hx Atrial Fibrillation, Hx Congestive Heart Failure, Hx Coronary Artery Disease, Hx Heart Attack - x 3,triple bypass in october, Hx Hypertension, Hx Peripheral Vascular Disease Pulmonary Medical History: Denies: Hx Asthma, Hx Bronchitis, Hx COPD, Hx Pneumonia Neurological Medical History: Denies: Hx Cerebrovascular Accident, Hx Seizures Endocrine Medical History: Reports: Hx Diabetes Mellitus Type 2 Renal/ Medical History: Reports: Hx End Stage Renal Disease - Dialysis dependent, Hx Hemodialysis, Hx Renal Insufficiency. Denies: Hx Peritoneal Dialysis GI Medical History: Reports: Hx Gastroesophageal Reflux Disease. Denies: Hx Hepatitis, Hx Hiatal Hernia, Hx Ulcer Musculoskeletal Medical History: Denies Hx Arthritis Skin Medical History: Denies Hx Psoriasis Psychiatric Medical History: Reports: Hx Depression Traumatic Medical History: Denies: Hx Traumatic Brain Injury Infectious Medical History: Denies: Hx Hepatitis Past Surgical History: Reports: Hx Cardiac Catheterization, Hx Cardiac Surgery - triple bypass, Hx Coronary Artery Bypass Graft - X3 vessel on October 26, 2017, Hx Orthopedic Surgery - Right big toe amputation in 2014, left third and fourth toe amputation, Hx Vascular Surgery, Other - Cervical laminectomy in 2012. Denies: Hx Open Heart Surgery, Hx Pacemaker - Immunizations Hx Diphtheria, Pertussis, Tetanus Vaccination: Yes Hx Pneumococcal Vaccination: 02/05/15 Review of Systems - Review of Systems Notes: Constitutional: Negative for fever. Positive for fatigue HENT: Negative for sore throat. Eyes: Negative for visual changes. Cardiovascular: Positive for chronic chest pain Respiratory: Negative for shortness of breath. Gastrointestinal: Negative for abdominal pain, positive for nausea Genitourinary: Negative for dysuria. Musculoskeletal: Negative for back pain. Skin: Negative for rash. Neurological: Negative for headaches, weakness or numbness. 10 point ROS negative except as marked above and in HPI. Physical Exam - Vital signs Vitals: Temp Pulse Resp BP Pulse Ox 98.3 F 66 16 132/83 H 93 08/13/18 18:24 08/13/18 18:24 08/13/18 18:24 08/13/18 18:24 08/13/18 18:24 Interpretation: Normal Notes: PHYSICAL EXAMINATION: GENERAL: Somewhat unwell in appearance but in no acute distress. Appears fatigued. HEAD: Atraumatic, normocephalic. EYES: Pupils equal round and reactive to light, extraocular movements intact, sclera anicteric, conjunctiva are normal. ENT: nares patent, oropharynx clear without exudates. Moderate dry mucous membranes. NECK: Normal range of motion, supple without lymphadenopathy LUNGS: Breath sounds clear to auscultation bilaterally and equal. No wheezes rales or rhonchi. HEART: Regular rate and rhythm without murmurs ABDOMEN: Soft, nontender, normoactive bowel sounds. No guarding, no rebound. No masses appreciated. EXTREMITIES: Normal range of motion, no pitting or edema. No cyanosis. NEUROLOGICAL: No focal neurological deficits. Moves all extremities spontaneously and on command. PSYCH: Somewhat lethargic, oriented x3. SKIN: Warm, Dry, normal turgor, no rashes or lesions noted. Course - Re-evaluation Re-evalutation: 08/13/18 19:58 Patient presents with reports of possible syncopal episode but it actually appears that he simply falling asleep. The reports that it appeared like the patient was falling asleep and then fell out of his chair when he hit the ground he woke up immediately. During conversation here the patient does fall asleep mid conversation, eyes become droopy and then he falls asleep and wakes up easily when I asked him to do so with a loud voice. The patient admits that he is not sleeping at all at night, has not been doing so for at least the past month due to chronic pain. His EKG is unchanged from previous. Labs are pending. 08/13/18 20:19 Laboratories revealed moderate hypokalemia at 6.3. Patient is due for dialysis in the next 12 hours. Troponin is however significantly elevated at 1.3 much higher than has been previously although he does have chronic troponin elevations. Previous troponin elevations do not appear to have ever reach this level. Patient continues to deny any acute chest pain, states that he has chronic unchanged chest pain. Aspirin, heparin have been administered. 08/13/18 20:31 Patient continues to deny any chest pain that is different than his baseline discomfort. I have contacted [facility] where he had a triple bypass in October 2017 after being transferred for similar troponin elevations. Awaiting callback. 08/13/18 2100 I did discuss this case with the accepting physician at [facility] who has accepted the patient. Patient remains clinically unchanged. 2300 Patient remains clinically unchanged, stable and appropriate for transport. - Vital Signs Vital signs: Temp Pulse Resp BP Pulse Ox 98.0 F 66 19 108/48 L 94 08/13/18 22:52 08/13/18 18:24 08/13/18 22:44 08/13/18 22:44 08/13/18 22:42 - Laboratory Result Diagrams: 08/13/18 20:54 08/13/18 19:00 Laboratory results interpreted by me: 08/13/18 08/13/18 08/13/18 19:00 19:00 20:54 RBC 3.28 L 3.16 L Hgb 9.7 L 9.3 L Hct 30.2 L 28.9 L RDW 24.3 H 24.0 H Seg Neutrophils % 82.6 H 82.6 H Lymphocytes % 7.2 L 8.0 L PT APTT Sodium 134.5 L Potassium 6.3 H* Chloride 93 L BUN 51 H Creatinine 9.03 H Est GFR ( Amer) 7 L Est GFR (Non-Af Amer) 6 L Glucose 139 H Direct Bilirubin 0.7 H Alkaline Phosphatase 145 H Creatine Kinase 53 L Total Protein 9.9 H 08/13/18 22:48 RBC Hgb Hct RDW Seg Neutrophils % Lymphocytes % PT 18.3 H APTT 61.1 H Sodium Potassium Chloride BUN Creatinine Est GFR ( Amer) Est GFR (Non-Af Amer) Glucose Direct Bilirubin Alkaline Phosphatase Creatine Kinase Total Protein - Diagnostic Test Radiology reviewed: Image reviewed, Reports reviewed Radiology results interpreted by me: 08/13/18 20:32 Chest x-ray: Bilateral pulmonary edema - EKG Interpretation by Me Additional EKG results interpreted by me: 08/13/18 19:59 Sinus rhythm, rate 69. No ST elevations or depressions. Right bundle branch block. Unchanged from previous. First-degree AV block, unchanged from previous Critical Care Note - Critical Care Note Total time excluding time spent on procedures (mins): 38 Comments: Critical care time spent obtaining history from patient or surrogate, discussions with consultants, development of treatment plan with patient or s urrogate, evaluation of patient's response to treatment, examination of patient, ordering and performing treatments and interventions, ordering and review of laboratory studies, re-evaluation of patient's condition, ordering and review of radiographic studies and review of old charts Discharge - Discharge Clinical Impression: CKD (chronic kidney disease) stage V requiring chronic dialysis, NSTEMI (non-ST elevated myocardial infarction), Elevated troponin I level Disposition: [facility] Referrals: FEI ZULETA MD [Primary Care Provider] - Follow up tomorrow
[2018-08-13 20:04] LABS: CREATINE KINASE MB 2.42 ng/mL (<4.55)
[2018-08-13 20:06] LABS: POTASSIUM 6.3 mmol/L (3.6-5.0); TROPONIN I 1.38 ng/mL
[2018-08-13] MEDS ORDERED: HEPARIN SOD (PORCINE) 1,000 UNIT/ML 10 ML VIAL IV ONE (20:23)
[2018-08-13] MEDS ORDERED: ASPIRIN 81 MG TABLET, CHEWABLE PO ONE (20:23)
[2018-08-13] MEDS ORDERED: HEPARIN SODIUM,PORCINE/D5W 25,000 UNIT/250 ML RTUINJ IV PRN (20:23)
[2018-08-13 21:07] LABS: ABSOLUTE EOSINOPHILS # (AUTO) 0.1 10^3/uL (0.0-0.6); ABSOLUTE LYMPHOCYTES (AUTO) 0.5 10^3/uL (0.5-4.7); ABSOLUTE MONOCYTES (AUTO) 0.5 10^3/uL (0.1-1.4); ABSOLUTE NEUT (AUTO) 5.7 10^3/uL (1.7-8.2); BASOPHILS % (AUTO) 0.7 % (0-2); EOSINOPHILS % (AUTO) 1.3 % (0-6); HEMATOCRIT 28.9 % (37.9-51.0); HEMOGLOBIN 9.3 g/dL (13.5-17.0); MEAN CORPUSCULAR HEMOGLOBIN 29.5 pg (27.0-33.4); MEAN CORPUSCULAR HGB CONC 32.4 g/dL (32.0-36.0); MEAN CORPUSCULAR VOLUME 91 fl (80-97); MONOCYTES % (AUTO) 7.4 % (3-13); PLATELET COUNT 274 10^3/uL (150-450); RED BLOOD COUNT 3.16 10^6/uL (4.35-5.55); SEGMENTED NEUTROPHILS % (AUTO) 82.6 % (42-78); TOTAL CELLS COUNTED % (AUTO) 100 %; WHITE BLOOD COUNT 6.9 10^3/uL (4.0-10.5)
[2018-08-13 22:51] VITALS: BP 108/48
[2018-08-13 23:02] LABS: INTERNATIONAL RATION (INR) 1.44; PROTHROMBIN TIME 18.3 SEC (11.4-15.4)
[2018-08-13 23:03] LABS: PARTIAL THROMBOPLASTIN TIME 61.1 SEC (23.5-35.8)
--- NOTE | 2018-08-14 01:28 | EKG REPORT ---
SEVERITY:- ABNORMAL ECG - SINUS RHYTHM FIRST DEGREE AV BLOCK RIGHT BUNDLE BRANCH BLOCK : Confirmed by: Shraddha Angel MD 14-Aug-2018 01:27:02
== END 2018-08-13 23:10 | disposition short-term general hospital (02) ==
LOC: ER 17:25
DX: I21.4 Non-ST elevation (NSTEMI) myocardial infarction (principal); I13.2 Hypertensive heart and chronic kidney disease with heart failure and with stage 5 chronic kidney disease, or end stage renal disease; E11.22 Type 2 diabetes mellitus with diabetic chronic kidney disease; N18.5 Chronic kidney disease, stage 5; I11.0 Hypertensive heart disease with heart failure; R79.89 Other specified abnormal findings of blood chemistry; I50.9 Heart failure, unspecified; E87.6 Hypokalemia; Z99.2 Dependence on renal dialysis; R55 Syncope and collapse; R53.83 Other fatigue; Z95.1 Presence of aortocoronary bypass graft; Z87.891 Personal history of nicotine dependence; I25.10 Atherosclerotic heart disease of native coronary artery without angina pectoris
CPT/HCPCS: 93005; 96376; 99291; 96365; 36415; 82553; 82550; 85025; 85610; 85730; 80053; 84484; 93010; J1644 ×2

== ENCOUNTER 2018-08-28 16:02 | Emergency (ER) | payer OTHER, MEDICARE ==
--- NOTE | 2018-08-28 16:56 | ER Document Report ---
ED Extremity Problem, Lower - General Stated Complaint: TOE PAIN Time Seen by Provider: 08/28/18 16:36 Primary Care Provider: FEI ZULETA MD [Primary Care Provider] - Follow up as needed Notes: Patient had his right middle toe removed at [facility] in [place] about a week ago. He has been recovering at [facility] for this past week. He is getting the dressing changed twice a day. Patient reports that the nurse noted some drainage from the site of the amputation yesterday. She sent him here for evaluation today for possible infection. Has not had any fever. Patient is an insulin-dependent diabetic. Patient and his both say that [place] call them to tell them that he has an appointment to see his surgeon in his office tomorrow in [place] and the transportation has been arranged. Patient has previously had his great toe and second toe removed. He is a dialysis patient on Tuesday, Tuesday, and Tuesday and did go to dialysis today. TRAVEL OUTSIDE OF THE [place] 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 Past Medical History - Social History Smoking Status: Unknown if Ever Smoked Frequency of alcohol use: None Family History: Reviewed & Not Pertinent, CAD, Hypertension, Malignancy - Past Medical History Cardiac Medical History: Reports: Hx Atrial Fibrillation, Hx Congestive Heart Failure, Hx Coronary Artery Disease, Hx Heart Attack - x 3,triple bypass in october, Hx Hypertension, Hx Peripheral Vascular Disease Neurological Medical History: Denies: Hx Cerebrovascular Accident, Hx Seizures Endocrine Medical History: Reports: Hx Diabetes Mellitus Type 1, Hx Diabetes Mellitus Type 2 Renal/ Medical History: Reports: Hx End Stage Renal Disease - Dialysis dependent, Hx Hemodialysis, Hx Renal Insufficiency GI Medical History: Reports: Hx Gastroesophageal Reflux Disease Musculoskeletal Medical History: Denies Hx Arthritis Psychiatric Medical History: Reports: Hx Depression Past Surgical History: Reports: Hx Cardiac Catheterization, Hx Cardiac Surgery - triple bypass, Hx Coronary Artery Bypass Graft - X3 vessel on October 26, 2017, Hx Orthopedic Surgery - Right big toe amputation in 2014, left third and fourth toe amputation, Hx Vascular Surgery, Other - Cervical laminectomy in 2012 - Immunizations Hx Diphtheria, Pertussis, Tetanus Vaccination: Yes Hx Pneumococcal Vaccination: 02/05/15 Review of Systems - Review of Systems Notes: CONSTITUTIONAL : Denies fever. CARDIOVASCULAR: Denies chest pain. RESPIRATORY: Denies cough, chest congestion, or shortness of breath. GASTROINTESTINAL: Denies abdominal pain or nausea, vomiting, or diarrhea. GENITOURINARY: Patient is a dialysis patient does not make any urine. Physical Exam - Vital signs Vitals: Temp Pulse Resp BP Pulse Ox 98.4 F 64 16 138/47 H 94 08/28/18 16:18 08/28/18 16:18 08/28/18 16:18 08/28/18 16:18 08/28/18 16:18 Interpretation: Normal Notes: PHYSICAL EXAMINATION: GENERAL: Well-appearing, no acute distress. HEAD: Atraumatic, normocephalic. NECK: Normal range of motion, supple. LUNGS: Breath sounds clear and equal bilaterally. HEART: Regular rate and rhythm without murmurs heard. ABDOMEN: Soft, nontender. No guarding or rebound or masses felt. Extremities: Patient is missing his right great toe and second toe from previous surgery. He has a fresh looking amputation site for the third toe on the right foot. There are multiple sutures around this area of the foot. There is some very small amount of white drainage from between the sutures when pressure is applied. There is some swelling of the distal pad of the foot which is warm to the touch. Course - Re-evaluation Re-evalutation: 08/28/18 18:50 Discussed this case with Dr. Zuleta, patient's primary care provider. Also spoke to the doctor Edwige, configuration specialist for this patient's surgeon, Andrew Edwards, and discussed treating the patient with a dose of antibiotic here this evening and have him keep his appointment to be seen tomorrow in [place] Dr. Gibbons was agreeable with that treatment plan. Patient is allergic to vancomycin so he was given 2 g of Rocephin IV. He and his understand that he is to travel to [place] tomorrow to see his surgeon as scheduled. If anything happens with this plan of follow-up, they are advised to bring the patient back to the emergency department tomorrow and we will work on an alternate disposition at that time. - Vital Signs Vital signs: Temp Pulse Resp BP Pulse Ox 98.4 F 64 16 138/47 H 94 08/28/18 16:18 08/28/18 16:18 08/28/18 16:18 08/28/18 16:18 08/28/18 16:18 Discharge - Discharge Clinical Impression: Amputation toe, Wound infection after surgery Condition: Stable Disposition: HOME, SELF-CARE Additional Instructions: Infected surgical wound. Cellulitis You have an infection of your skin and underlying soft tissues called cellulitis. This is due to bacteria, which can enter through any break in the skin, or even through an irritated hair follicle. Untreated, cellulitis will usually worsen. Antibiotics are required. Usually, warm packs or warm soaks, and elevation of the infected area are recommended. You should start getting better within 24 to 36 hours. Most infections respond quickly to the right medication. Follow-up care is important, however, to check for abscess (boil) formation, unsuspected foreign body, or resistant infection. If you develop fever, chills, or if the area of infection is becoming rapidly more swollen or painful, call the doctor at once. Rocephin You have been given an injection of an antibiotic called Rocephin (ceftriaxone). Sometimes the injection must be combined with antibiotic pills. For some infections, such as an uncomplicated ear infection, Rocephin provides all the antibiotic that's needed. The antibiotic will be in your body for about two days. For serious infections, we usually repeat doses of Rocephin daily. Side effects are very unusual following a shot. Women may develop vaginal yeast infections, and babies can get yeast (thrush) in the mouth following the use of antibiotics. Contact your physician if you have symptoms with this medication. Allergy to this antibiotic can result in hives, wheezing, faintness, or itching. If symptoms of allergy occur, call the doctor at once. You are to keep your appointment to be seen by your surgeon, , in [place] tomorrow. If something does not work out and there is no appointment to go to, come back to this emergency department tomorrow for reevaluation. FOLLOW-UP CARE: If you have been referred to a physician for follow-up care, call the physicians office for an appointment as you were instructed or within the next two days. If you experience worsening or a significant change in your symptoms, notify the physician immediately or return to the Emergency Department at any time for re-evaluation.
[2018-08-28] MEDS ORDERED: CEFTRIAXONE 2 GM/D5W RTU 2 GM/50 ML RTUPB IV ONE (17:06)
[2018-08-28 19:46] VITALS: BP 143/50
== END 2018-08-28 19:54 | disposition home or self-care (01) ==
LOC: ER 16:02
DX: T81.49XA Infection following a procedure, other surgical site, initial encounter (principal); Z89.411 Acquired absence of right great toe; Z89.421 Acquired absence of other right toe(s); I13.2 Hypertensive heart and chronic kidney disease with heart failure and with stage 5 chronic kidney disease, or end stage renal disease; E11.22 Type 2 diabetes mellitus with diabetic chronic kidney disease; N18.6 End stage renal disease; I50.9 Heart failure, unspecified; Z79.4 Long term (current) use of insulin; Z99.2 Dependence on renal dialysis
CPT/HCPCS: 99283; 96365; 96366; 87070; 87205; 87077; J0696; 87186

== ENCOUNTER 2018-09-05 20:38 | Emergency (ER) | payer OTHER, MEDICARE ==
[~2018-09-05 20:38] MED LIST changes: -DIAZEPAM 5 MG TABLET ONE; -DIAZEPAM 5 MG TABLET PO PRN; -OXYCODONE-ACETAMINOPHEN 5-325 MG TABLET ONE; -OXYCODONE-ACETAMINOPHEN 5-325 MG TABLET PO PRN; +ROCURONIUM BROMIDE INJ 50 MG/5 ML VIAL IV ONE
[2018-09-05] MEDS ORDERED: FENTANYL CITRATE INJ/PF 100 MCG/2 ML AMPUL ONE (20:44)
[2018-09-05] MEDS ORDERED: FENTANYL CITRATE INJ/PF 100 MCG/2 ML AMPUL IV ONE (20:44)
[2018-09-05] MEDS ORDERED: ROCURONIUM BROMIDE INJ 50 MG/5 ML VIAL IV ONE (20:45)
[2018-09-05] MEDS ORDERED: ALBUTEROL SULFATE 0.083% NEB 2.5 MG/3 ML AMPUL NEB ONE (20:47)
[2018-09-05] MEDS ORDERED: DEXTROSE 50%-WATER 25 GM/50 ML DISP.SYRIN IV ONE ×3 (20:48→22:46)
[2018-09-05] MEDS ORDERED: SODIUM BICARBONATE 8.4% INJ 50 MEQ/50 ML DISP.SYRIN ONE (20:48)
--- NOTE | 2018-09-05 20:55 | ER Document Report ---
ED Cardiac - General Stated Complaint: POST ARREST Time Seen by Provider: 09/05/18 20:54 Primary Care Provider: FEI ZULETA MD [Primary Care Provider] - Follow up as needed Mode of Arrival: Medic Information source: Emergency Med Personnel Cannot obtain history due to: Intubated Notes: HISTORY OF PRESENT ILLNESS: Patient is a 63-year-old male with a past medical history of coronary artery disease, chronic renal failure on dialysis, as well as several chronic health conditions who presents with respiratory distress after having a witnessed cardiac arrest in front of EMS prior to arrival. EMS reports the patient called 911 for respiratory distress, when they arrived he arrested in front of them and received 2 cycles of CPR totaling approximately 4 minutes before return of spontaneous circulation. His initial EKG after this was described as a wide-complex wave like pattern. He was intubated and sedated prehospital then placed on norepinephrine drip for hypotension. He received a total of 1 g of IV calcium gluconate, as well as 250 mEq of sodium bicarbonate. Location: Global Onset: Sudden Alleviation: None Provocation: Unknown Quality: Unresponsive Radiation: Global Severity: Severe Timing: Constant History of CAD: Yes Associated symptoms: Difficulty breathing REVIEW OF SYSTEMS: CONSTITUTIONAL : Denies fever or chills, no sweats. Denies recent illness. EENT: Denies eye, ear, throat, or mouth pain or symptoms. Denies nasal or sinus congestion. CARDIOVASCULAR: Denies chest pain. Denies swelling of the legs. RESPIRATORY: Denies cough, cold, or chest congestion. Positive for shortness of breath and difficulty breathing. Denies wheezing. GASTROINTESTINAL: Denies abdominal pain. Denies nausea, vomiting, or diarrhea. Denies constipation. GENITOURINARY: Denies difficulty urinating, painful urination, burning, frequency, or blood in urine. MUSCULOSKELETAL: Denies neck or back pain or joint pain or swelling. SKIN: Denies rash or skin lesions. HEMATOLOGIC : Denies easy bruising or bleeding. LYMPHATIC: Denies swollen, enlarged glands. NEUROLOGICAL: Denies altered mental status or loss of consciousness. Denies headache. Denies weakness or paralysis or loss of use of either side. Denies problems with gait or speech. Denies sensory or motor loss. PSYCHIATRIC: Denies anxiety or stress or depression. All other systems reviewed and negative. PHYSICAL EXAMINATION: GENERAL: Ill-appearing, intubated, and in significant acute distress. HEAD: Atraumatic, normocephalic. No scalp deformity, depression, or crepitance. EYES: Pupils are 2mm and equal/round/reactive to light, extraocular movements intact, sclera anicteric, conjunctiva are normal. ENT: Nares patent bilaterally, oropharynx. Moist mucous membranes. No tonsil hypertrophy. NECK: Normal range of motion, supple without lymphadenopathy. LUNGS: Breath sounds present, equal, and clear to auscultation bilaterally. No wheezes, rales, or rhonchi. HEART: Regular rate and rhythm without murmurs, rubs, or gallops. 2+ peripheral pulses. Normal capillary refill. ABDOMEN: Soft, nontender, nondistended. Normoactive bowel sounds. No guarding, no rebound. No masses appreciated. BACK: Normal contour, no midline tenderness. Rectal exam deferred. GENITAL/PELVIC: Deferred. EXTREMITIES: Bilateral intraosseous lines in the anterior tibias. Normal range o f motion, no pitting or edema. No cyanosis. NEUROLOGICAL: Intubated and sedated, limited exam. PSYCH: Normal mood, normal affect. No suicidal thoughts/ideations. No homocidal thoughts/ideations. No hallucinations. SKIN: Warm, dry, normal turgor, no rashes or lesions noted. ASSESSMENT AND PLAN: This patient is a 63-year-old male who presents with witnessed out of hospital cardiac arrest likely secondary to respiratory distress versus hyperkalemia versus acute on chronic renal failure. 1. Will secure central line for access and continue aggressive temporizing measures. 2. Will obtain blood work, blood cultures, lactic acid, cardiac enzymes, portable chest x-ray, continue norepinephrine drip as necessary, maintain sedation, and attempt transfer for emergent dialysis. TRAVEL OUTSIDE OF THE [place] 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 Past Medical History - General Information source: Emergency Med Personnel Cannot obtain history due to: Intubated - Social History Smoking Status: Never Smoker Chew tobacco use (# tins/day): No Frequency of alcohol use: None Drug Abuse: None Lives with: Family Family History: Reviewed & Not Pertinent, CAD, Hypertension, Malignancy - Past Medical History Cardiac Medical History: Reports: Hx Atrial Fibrillation, Hx Congestive Heart Failure, Hx Coronary Artery Disease, Hx Heart Attack - x 3,triple bypass in october, Hx Hypertension, Hx Peripheral Vascular Disease Pulmonary Medical History: Denies: Hx Asthma, Hx Bronchitis, Hx COPD, Hx Pneumonia EENT Medical History: Reports: None Neurological Medical History: Reports: None. Denies: Hx Cerebrovascular Accident, Hx Seizures Endocrine Medical History: Reports: Hx Diabetes Mellitus Type 1, Hx Diabetes Mellitus Type 2 Renal/ Medical History: Reports: Hx End Stage Renal Disease - Dialysis dependent, Hx Hemodialysis, Hx Renal Insufficiency. Denies: Hx Peritoneal Dialysis Malignancy Medical History: Reports None GI Medical History: Reports: Hx Gastroesophageal Reflux Disease. Denies: Hx Hepatitis, Hx Hiatal Hernia, Hx Ulcer Musculoskeletal Medical History: Reports None, Denies Hx Arthritis Skin Medical History: Reports None, Denies Hx Psoriasis Psychiatric Medical History: Reports: Hx Depression Traumatic Medical History: Reports: None. Denies: Hx Traumatic Brain Injury Infectious Medical History: Reports: None. Denies: Hx Hepatitis Past Surgical History: Reports: Hx Cardiac Catheterization, Hx Cardiac Surgery - triple bypass, Hx Coronary Artery Bypass Graft - X3 vessel on October 26, 2017, Hx Orthopedic Surgery - Right big toe amputation in 2014, left third and fourth toe amputation, Hx Vascular Surgery, Other - Cervical laminectomy in 2012. Denies: Hx Open Heart Surgery, Hx Pacemaker - Immunizations Hx Diphtheria, Pertussis, Tetanus Vaccination: Yes Hx Pneumococcal Vaccination: 02/05/15 Physical Exam - Vital signs Vitals: Resp BP 22 H 115/96 H 09/05/18 20:41 09/05/18 20:41 Course - Re-evaluation Re-evalutation: 09/05/18 21:54 Right femoral central line has been established, please see procedure note for details. Blood work is still pending at this time. Patient has improved on sodium bicarbonate drip and is being weaned off of norepinephrine. 09/05/18 23:04 Potassium is elevated at 7.5 with a mildly elevated troponin of 0.10, likely fro m CPR. Patient has already been given albuterol through the ventilator, has been given insulin/glucose and we will add Kayexalate per the orogastric tube. Patient is already on bicarbonate drip and has received a gram of calcium for cardiac stabilization. I have spoken with transfer center at [facility] who has accepted the patient however they do not currently have an intensive care unit bed. Plan will be to seek transfer to another facility but keep the patient on the transfer list at [facility]. 09/06/18 00:06 Due to [facility] not having a bed, the patient will now be transferred to [facility] in [place] and has been accepted by the pet caretaker there. - Vital Signs Vital signs: Temp Pulse Resp BP Pulse Ox 96.2 F L 16 146/32 H 100 09/05/18 23:40 09/05/18 23:40 09/05/18 23:40 09/05/18 23:40 - Laboratory Result Diagrams: 09/05/18 21:50 09/05/18 21:50 Laboratory results interpreted by me: 09/05/18 09/05/18 09/05/18 21:06 21:50 21:50 WBC 12.4 H RBC 3.03 L Hgb 8.5 L Hct 27.3 L MCHC 31.3 L RDW 24.3 H Seg Neuts % (Manual) 92 H Lymphocytes % (Manual) 6 L Monocytes % (Manual) 2 L Abs Neuts (Manual) 11.4 H PT 18.4 H ABG pH 7.28 L ABG pO2 399.4 H ABG HCO3 16.3 L ABG Total CO2 17.4 L ABG O2 Saturation 99.8 H Potassium Carbon Dioxide Anion Gap BUN Creatinine Est GFR ( Amer) Est GFR (Non-Af Amer) Glucose Direct Bilirubin AST ALT Alkaline Phosphatase Total Protein 09/05/18 21:50 WBC RBC Hgb Hct MCHC RDW Seg Neuts % (Manual) Lymphocytes % (Manual) Monocytes % (Manual) Abs Neuts (Manual) PT ABG pH ABG pO2 ABG HCO3 ABG Total CO2 ABG O2 Saturation Potassium 7.5 H* Carbon Dioxide 18 L Anion Gap 25 H BUN 102 H Creatinine 13.81 H Est GFR ( Amer) 4 L Est GFR (Non-Af Amer) 4 L Glucose 150 H Direct Bilirubin 1.0 H AST 252 H ALT 115 H Alkaline Phosphatase 219 H Total Protein 8.3 H - Diagnostic Test Radiology reviewed: Image reviewed, Reports reviewed - EKG Interpretation by Me EKG shows normal: Sinus rhythm Rate: Normal Rhythm: NSR Marked Tree/QRS: RBBB Voltage: No: Increased voltage, Consistant with LVH, Decreased voltage, Throughout, Limb leads P Waves: No: JOE, LAE, Absent, AV Dissociation, Other Heart block present: No: 1st Degree, Mobitz 1, Mobitz 2, CHB (3rd degree block) When compared to previous EKG there are: Changes noted, Other - QRS is slightly widened - Consults Dr. Travis ([facility] ICU) Time consulted: 00:07 - will accept transfer Procedures - Central Line Right Femoral Time completed: 21:53 Consent obtained: No - Emergent Central line pre-insertion: Sterile PPE donned, Chloraprep applied, Sterile drapes applied Central line size (Fr.): 7 Central line lumen type: Triple Ultrasound guided: No Line secured with sutures: Yes Central line post-insertion: Blood return from lumens, Biopatch applied, Sutured, Sterile dressing applied Number of attempts: 1 Complications: No Critical Care Note - Critical Care Note Total time excluding time spent on procedures (mins): 120 Comments: Critical care time spent obtaining history from patient or surrogate, discussions with consultants, development of treatment plan with patient or surrogate, evaluation of patient's response to treatment, examination of patient, ordering and performing treatments and interventions, ordering and review of laboratory studies, re-evaluation of patient's condition, ordering and review of radiographic studies and review of old charts Discharge - Discharge Clinical Impression: Metabolic acidosis, Cardiac arrest, Hyperkalemia, Elevated troponin Chronic renal failure Qualifiers: Chronic kidney disease stage: unspecified stage Qualified Code(s): N18.9 - Chronic kidney disease, unspecified Respiratory failure Qualifiers: Chronicity: acute Respiratory failure complication: unspecified whether with hypoxia or hypercapnia Qualified Code(s): J96.00 - Acute respiratory failure, unspecified whether with hypoxia or hypercapnia Condition: Critical Disposition: [facility] Referrals: FEI ZULETA MD [Primary Care Provider] - Follow up as needed
[2018-09-05] MEDS ORDERED: DEXTROSE 5%-WATER 1000 ML 1,000 ML with SODIUM BICARBONATE 150 MEQ IV PRN ×2 (20:56)
--- NOTE | 2018-09-05 21:18 | RADIOLOGY REPORT (SQ) ---
EXAM DESCRIPTION: XR CHEST 1 VIEW COMPLETED DATE/TME: 09/05/2018 20:43 CLINICAL HISTORY: 63 years, Male, post arrest COMPARISON: 07/27/2018 chest NUMBER OF VIEWS: 1 TECHNIQUE: Portable chest LIMITATIONS: None. FINDINGS: Cardiomegaly. Sternotomy wires with postsurgical changes, as before. Osteopenia. No discrete pneumothorax. Artifact overlies the right hemithorax. Mild elevation of left hemidiaphragm with minor consolidative change in the left lung base. Enteric tube partially visualized. Endotracheal tube with the tip approximately 4 cm above the ambrosio. IMPRESSION: Postsurgical changes. Endotracheal and enteric tubes are in place. Cardiomegaly. Consolidative change left lung base copyright 2010 [employer]- All Rights Reserved
[2018-09-05 21:22] LABS: ARTERIAL BLOOD BASE EXCESS -9.6 mmol/L; ARTERIAL BLOOD FIO2 100%; ARTERIAL BLOOD H2CO3 1.07 mmol/L (1.05-1.35); ARTERIAL BLOOD HCO3 16.3 mmol/L (20-24); ARTERIAL BLOOD O2 SATURATION 99.8 % (94-98); ARTERIAL BLOOD PCO2 35.6 mmHg (35-45); ARTERIAL BLOOD PH 7.28 (7.35-7.45); ARTERIAL BLOOD PO2 399.4 mmHg (80-100); ARTERIAL BLOOD TOTAL CO2 17.4 mmol/L (23-27)
[2018-09-05 22:01] LABS: HEMATOCRIT 27.3 % (37.9-51.0); HEMOGLOBIN 8.5 g/dL (13.5-17.0); MEAN CORPUSCULAR HEMOGLOBIN 28.2 pg (27.0-33.4); MEAN CORPUSCULAR HGB CONC 31.3 g/dL (32.0-36.0); MEAN CORPUSCULAR VOLUME 90 fl (80-97); PLATELET COUNT 298 10^3/uL (150-450); RED BLOOD COUNT 3.03 10^6/uL (4.35-5.55); RED CELL DISTRIBUTION WIDTH 24.3 % (11.5-14.0); WHITE BLOOD COUNT 12.4 10^3/uL (4.0-10.5)
[2018-09-05 22:10] LABS: INTERNATIONAL RATION (INR) 1.45; PROTHROMBIN TIME 18.4 SEC (11.4-15.4)
[2018-09-05 22:11] LABS: ALANINE AMINOTRANSFERASE 115 U/L (21-72); ALBUMIN 3.6 g/dL (3.5-5.0); ALKALINE PHOSPHATASE 219 U/L (38-126); ASPARTATE AMINO TRANSFERASE 252 U/L (17-59); BLOOD UREA NITROGEN 102 mg/dL (7-20); CALCIUM 8.9 mg/dL (8.4-10.2); CREATINE KINASE 86 U/L (55-170); GLUCOSE 150 mg/dL (75-110); TOTAL PROTEIN 8.3 g/dL (6.3-8.2)
[2018-09-05 22:17] LABS: CARBON DIOXIDE 18 mmol/L (22-30); CHLORIDE 98 mmol/L (98-107); SODIUM 141.1 mmol/L (137-145)
[2018-09-05 22:20] LABS: CREATINE KINASE MB 2.43 ng/mL (<4.55)
[2018-09-05] MEDS ORDERED: MIDAZOLAM HCL 50 MG/100 ML RTUINJ IV PRN (22:25)
[2018-09-05 22:26] LABS: ABSOLUTE LYMPHOCYTES# (MANUAL) 0.7 10^3/uL (0.5-4.7); ABSOLUTE MONOCYTES # (MANUAL) 0.2 10^3/uL (0.1-1.4); ABSOLUTE NEUTROPHILS# (MANUAL) 11.4 10^3/uL (1.7-8.2); BASOPHILS % (MANUAL) 0 % (0-2); EOSINOPHILS % (MANUAL) 0 % (0-6); LYMPHOCYTES % (MANUAL) 6 % (13-45); MONOCYTES % (MANUAL) 2 % (3-13); SEGMENTED NEUTROPHILS % (MAN) 92 % (42-78); TOTAL CELLS COUNTED 100
[2018-09-05 22:27] LABS: POTASSIUM 7.5 mmol/L (3.6-5.0); TROPONIN I 0.082 ng/mL
[2018-09-05 22:28] LABS: ANION GAP 25 (5-19); ANISOCYTOSIS 3+; OVALOCYTES SLIGHT; PLATELET COMMENT ADEQUATE; POIKILOCYTOSIS SLIGHT; TARGET CELLS SLIGHT; TEAR DROP CELLS SLIGHT
[2018-09-05 22:29] LABS: HYPOCHROMASIA SLIGHT
[2018-09-05] MEDS ORDERED: MIDAZOLAM 2 MG/2 ML INJ IV ONE (22:29)
[2018-09-05] MEDS ORDERED: SODIUM BICARBONATE 8.4% INJ 50 MEQ/50 ML DISP.SYRIN IV ONE (22:41)
[2018-09-05] MEDS ORDERED: INSULIN REG, HUMAN 100 UNIT/ML 3 ML VIAL (PYX) IV ONE (22:46)
[2018-09-05] MEDS ORDERED: SODIUM POLYSTYRENE SULFONATE 15 GM/60 ML NG ONE (22:46)
[2018-09-06 02:00] VITALS: BP 131/50
--- NOTE | 2018-09-06 07:51 | EKG REPORT ---
SEVERITY:- ABNORMAL ECG - ACCELERATED JUNCTIONAL RHYTHM RBBB AND LPFB : Confirmed by: Marco Antonio Padilla MD 06-Sep-2018 07:51:29
== END 2018-09-06 01:45 | disposition short-term general hospital (02) ==
LOC: ER 20:38
DX: I46.9 Cardiac arrest, cause unspecified (principal); E87.2 Acidosis; E87.5 Hyperkalemia; R79.89 Other specified abnormal findings of blood chemistry; J96.00 Acute respiratory failure, unspecified whether with hypoxia or hypercapnia; K21.9 Gastro-esophageal reflux disease without esophagitis; E11.22 Type 2 diabetes mellitus with diabetic chronic kidney disease; I13.2 Hypertensive heart and chronic kidney disease with heart failure and with stage 5 chronic kidney disease, or end stage renal disease; N18.6 End stage renal disease; I50.9 Heart failure, unspecified; Z95.1 Presence of aortocoronary bypass graft; Z99.2 Dependence on renal dialysis
CPT/HCPCS: 36556; 93005; 94640; 99291; 99292; 96374; 96375; 36415; 82553; 82962; 82803; 82550; 85025; 85610; 80053; 84484; 71045; 94660; 93010; J2250 ×2; J3490 ×3; J3010; J1815; J7060; 94002

== ENCOUNTER 2018-09-20 12:05 | Emergency (ER) | payer OTHER, MEDICARE ==
[2018-09-20 12:40] VITALS: BP 117/50
[2018-09-20] MEDS ORDERED: ACETAMINOPHEN 325 MG TABLET PO ONE (12:44)
--- NOTE | 2018-09-20 12:49 | ER Document Report ---
ED Medical Screen (RME) - General Chief Complaint: Fever Stated Complaint: BLOOD PRESSURE Time Seen by Provider: 09/20/18 12:40 TRAVEL OUTSIDE OF THE [place] IN LAST 30 DAYS: No - HPI Notes: 09/20/18 12:47 Patient is a 63-year-old male with a history of end-stage renal disease (dialysis Tuesday/Tuesday/Tuesday), coronary artery disease, type 2 diabetes, hypertension who presents by EMS from dialysis for low blood pressure, cough, and fever. They took approximately 1900 cc out and noticed blood pressure 90 systolic so they gave him 1 L of fluid which helped. He was given 325 mg of Tylenol by EMS. Patient states that he has been coughing and has had a fever for the past couple days. He is otherwise able to eat and drink without difficulty. He does not produce any urine. He is having normal bowel movements. Denies FORDE, neck pain, URI, CP, SOB, Abd pain, n/v/d, or rash. I have treated and performed a rapid initial assessment of this patient. A comprehensive ED assessment and evaluation of the patient, analysis of test results and completion of medical decision making process will be conducted by additional ED providers. PHYSICAL EXAMINATION: GENERAL: Well-appearing, well-nourished and in no acute distress. A&Ox4. Answers questions appropriately. LUNGS: Scant rhonchi bilaterally. No retractions. HEART: Regular rate and rhythm without murmurs, rubs, gallops. NEUROLOGICAL: Normal speech, normal gait. PSYCH: Normal mood, normal affect. - Related Data Allergies/Adverse Reactions: vancomycin [Vancomycin] Adverse Reaction (Unknown, Verified 09/20/18 12:07) molina syndrome Past Medical History - Past Medical History Cardiac Medical History: Reports: Hx Atrial Fibrillation, Hx Congestive Heart Failure, Hx Coronary Artery Disease, Hx Heart Attack - x 3,triple bypass in october, Hx Hypertension, Hx Peripheral Vascular Disease Pulmonary Medical History: Denies: Hx Asthma, Hx Bronchitis, Hx COPD, Hx Pneumonia Neurological Medical History: Denies: Hx Cerebrovascular Accident, Hx Seizures Endocrine Medical History: Reports: Hx Diabetes Mellitus Type 1, Hx Diabetes Mellitus Type 2 Renal/ Medical History: Reports: Hx End Stage Renal Disease - Dialysis dependent, Hx Hemodialysis, Hx Renal Insufficiency. Denies: Hx Peritoneal Dialysis GI Medical History: Reports: Hx Gastroesophageal Reflux Disease. Denies: Hx Hepatitis, Hx Hiatal Hernia, Hx Ulcer Musculoskeltal Medical History: Denies Hx Arthritis Skin Medical History: Denies Hx Psoriasis Psychiatric Medical History: Reports: Hx Depression Traumatic Medical History: Denies: Hx Traumatic Brain Injury Infectious Medical History: Denies: Hx Hepatitis Past Surgical History: Reports: Hx Cardiac Catheterization, Hx Cardiac Surgery - triple bypass, Hx Coronary Artery Bypass Graft - X3 vessel on October 26, 2017, Hx Orthopedic Surgery - Right big toe amputation in 2014, left third and fourth toe amputation, Hx Vascular Surgery, Other - Cervical laminectomy in 2012. Denies: Hx Open Heart Surgery, Hx Pacemaker - Immunizations Hx Diphtheria, Pertussis, Tetanus Vaccination: Yes History of Influenza Vaccine for 03/2017 - 08/2017 Season: Yes Influenza Administration Date for 03/2017 - 08/2017 Season: 03/06/18 Physical Exam - Vital signs Vitals: Temp Pulse Resp BP Pulse Ox 100.0 F 77 18 117/50 L 95 09/20/18 12:39 09/20/18 12:39 09/20/18 12:39 09/20/18 12:39 09/20/18 12:39 Course - Vital Signs Vital signs: Temp Pulse Resp BP Pulse Ox 100.0 F 77 18 117/50 L 95 09/20/18 12:39 09/20/18 12:39 09/20/18 12:39 09/20/18 12:39 09/20/18 12:39
--- NOTE | 2018-09-20 13:33 | RADIOLOGY REPORT (SQ) ---
EXAM DESCRIPTION: CHEST SINGLE VIEW COMPLETED DATE/TIME: 09/20/2018 1:21 pm REASON FOR STUDY: fever/cough COMPARISON: 09/05/2018 EXAM PARAMETERS: NUMBER OF VIEWS: One view. TECHNIQUE: Single frontal radiographic view of the chest acquired. RADIATION DOSE: NA LIMITATIONS: None. FINDINGS: LUNGS AND PLEURA: Lungs demonstrate improved with persistent left basilar opacities with u nchanged elevation of the left hemidiaphragm. Possible small left effusion. Unremarkable right laxmi thorax. No pneumothorax. MEDIASTINUM AND HILAR STRUCTURES: Stable. HEART AND VASCULAR STRUCTURES: Enlarged, stable. Aortic atherosclerosis. BONES: Median sternotomy changes. No acute findings. HARDWARE: Median sternotomy hardware. Patient has been extubated compared to prior exam. OTHER: No other significant finding. IMPRESSION: Improved but persistent minimal left basilar opacities likely atelectasis. TECHNICAL DOCUMENTATION: JOB ID: [id number] [employer]- All Rights Reserved Reading location - IP/workstation name: [email or web address]
[2018-09-20 14:43] LABS: INTERNATIONAL RATION (INR) 1.07; PROTHROMBIN TIME 14.5 SEC (11.4-15.4)
[2018-09-20 14:48] LABS: A TYPE INFLUENZA AG NEGATIVE (NEGATIVE); B INFLUENZA AG NEGATIVE (NEGATIVE)
[2018-09-20 15:22] LABS: HEMATOCRIT 27.5 % (37.9-51.0); HEMOGLOBIN 8.7 g/dL (13.5-17.0); MEAN CORPUSCULAR HEMOGLOBIN 28.1 pg (27.0-33.4); MEAN CORPUSCULAR HGB CONC 31.6 g/dL (32.0-36.0); MEAN CORPUSCULAR VOLUME 89 fl (80-97); PLATELET COUNT 296 10^3/uL (150-450); RED BLOOD COUNT 3.09 10^6/uL (4.35-5.55); RED CELL DISTRIBUTION WIDTH 24.1 % (11.5-14.0)
--- NOTE | 2018-09-20 15:26 | ER Document Report ---
ED General - General Chief Complaint: Fever Stated Complaint: BLOOD PRESSURE Time Seen by Provider: 09/20/18 12:40 Notes: Patient is a 53-year-old male, end-stage renal disease on dialysis, diabetes mellitus that presents to the emergency department for chief complaint of lightheadedness, low blood pressure dialysis. Patient reports his been having a cough recently, and had a low blood pressure after dialysis today, he had 1900 mL was removed, because his blood pressure was low he was given thousand mL's back. He states that he has been having some chest discomfort and back pain, but that is been chronic since he received CPR as he states inappropriately a few weeks ago. He states he has had a cough, but denies any new shortness of breath, nausea, vomiting or abdominal pain. He is noticed that his wound has been draining more pus recently, from his right foot. Past Medical History: CAD, end-stage renal disease on dialysis, diabetes mellitus, poorly controlled, hypertension, hyperlipidemia Past Surgical History: 3 toe amputations, dialysis fistula placement Social History: Denies current tobacco, alcohol or drug use. Family History: Reviewed and noncontributory for presenting illness Allergies: Reviewed, see documented allergy list. REVIEW OF SYSTEMS: Other than noted above, the 12 point review of systems was reviewed with the patient and were negative, all pertinent findings are included in the HPI. PHYSICAL EXAMINATION: Vital signs reviewed, nursing noted reviewed. GENERAL: Chronically ill-appearing male HEAD: Atraumatic, normocephalic. EYES: Eyes appear normal, extraocular movements intact, sclera anicteric, conjunctiva are normal. ENT: nares patent, oropharynx clear without exudates. Moist mucous membranes. NECK: Normal range of motion, supple without lymphadenopathy LUNGS: Breath sounds clear to auscultation bilaterally and equal. No wheezes rales or rhonchi. Mild chest wall tenderness. HEART: Regular rate and rhythm without murmurs ABDOMEN: Soft, nontender, normoactive bowel sounds. No rebound, guarding, or rigidity. No masses appreciated. EXTREMITIES: 3 toe amputations noted to the right foot, there is a deep wound, the probes to the bone on the distal portion of the right foot, with pus drainage noted. He also has a large callus noted medially of the foot that is also draining pus. Distal pulses are weak but palpable bilaterally in the lower extremities, patient states he has chronic vascular issues. Left upper extremity AV fistula present, positive thrill and bruit. NEUROLOGICAL: No focal neurological deficits. Moves all extremities spontaneously Motor and sensory grossly intact on exam. PSYCH: Normal mood, normal affect. SKIN: Warm, Dry, normal turgor, no rashes or lesions noted on exposed skin TRAVEL OUTSIDE OF THE [place] IN LAST 30 DAYS: No - Related Data Allergies/Adverse Reactions: vancomycin [Vancomycin] Adverse Reaction (Unknown, Verified 09/20/18 12:07) molina syndrome Past Medical History - Social History Smoking Status: Unknown if Ever Smoked Family History: Reviewed & Not Pertinent, CAD, Hypertension, Malignancy Patient has suicidal ideation: No Patient has homicidal ideation: No - Past Medical History Cardiac Medical History: Reports: Hx Atrial Fibrillation, Hx Congestive Heart Failure, Hx Coronary Artery Disease, Hx Heart Attack - x 3,triple bypass in october, Hx Hypertension, Hx Peripheral Vascular Disease Pulmonary Medical History: Denies: Hx Asthma, Hx Bronchitis, Hx COPD, Hx Pneumonia Neurological Medical History: Denies: Hx Cerebrovascular Accident, Hx Seizures Endocrine Medical History: Reports: Hx Diabetes Mellitus Type 1, Hx Diabetes Mellitus Type 2 Renal/ Medical History: Reports: Hx End Stage Renal Disease - Dialysis dependent, Hx Hemodialysis, Hx Renal Insufficiency. Denies: Hx Peritoneal Dialysis GI Medical History: Reports: Hx Gastroesophageal Reflux Disease. Denies: Hx Hepatitis, Hx Hiatal Hernia, Hx Ulcer Musculoskeletal Medical History: Denies Hx Arthritis Skin Medical History: Denies Hx Psoriasis Psychiatric Medical History: Reports: Hx Depression Traumatic Medical History: Denies: Hx Traumatic Brain Injury Infectious Medical History: Denies: Hx Hepatitis Past Surgical History: Reports: Hx Cardiac Catheterization, Hx Cardiac Surgery - triple bypass, Hx Coronary Artery Bypass Graft - X3 vessel on October 26, 2017, Hx Orthopedic Surgery - Right big toe amputation in 2014, left third and fourth toe amputation, Hx Vascular Surgery, Other - Cervical laminectomy in 2012. Denies: Hx Open Heart Surgery, Hx Pacemaker - Immunizations Hx Diphtheria, Pertussis, Tetanus Vaccination: Yes Hx Pneumococcal Vaccination: 02/05/15 Physical Exam - Vital signs Vitals: Temp Pulse Resp BP Pulse Ox 100.0 F 77 18 117/50 L 95 09/20/18 12:39 09/20/18 12:39 09/20/18 12:39 09/20/18 12:39 09/20/18 12:39 Course - Re-evaluation Re-evalutation: Patient seen and examined vital signs reviewed. Laboratory data and imaging were ordered as appropriate for the patient's pre senting symptoms and complaint, with consideration of any critical or life threatening conditions that may be associated with their obtained history and exam as noted above. Patient was treated with IV vancomycin, IV Zosyn Results were reviewed when available and demonstrated significant leukocytosis, on my exam, it was most consistent with a wound that probed deep to the bone, most likely osteomyelitis, he did have an elevation in his CRP and ESR, as well as a high leukocytosis, concerning for this infection. Patient was not given fluids at this time, given that he is a dialysis patient just received dialysis today, his blood pressure has remained stable in the emergency department, as w ell as a normal heart rate. The patient was re-evaluated and was stable, understood plan of care Evaluation was most consistent with osteomyelitis of the right foot, with significant leukocytosis, qualifying for sepsis criteria. Results were discussed with the patient at this point after careful consideration I feel that that patient should be transferred to [facility] due to need for surgical services, anesthesiology, as the patient is a complex cardiac history, and will need tertiary center services for surgery for his infected foot if needed. This was discussed with the patient that it is in the best interest for their care to be transferred, the risks and benefits of transfer were discussed, including but not limited to clinical deterioration during transport, respiratory distress, and potential for traumatic injuries. Patient agreed with this plan of care. Patient accepted by Dr. George at [facility]. Patient examined at 1710 prior to transport, was stable for transport, patient ready for transport. *Note is created using voice recognition software and may contain spelling, syntax or grammatical errors. Laboratory 09/20/18 09/20/18 09/20/18 13:27 13:42 13:42 WBC Cancelled RBC Cancelled Hgb Cancelled Hct Cancelled MCV Cancelled MCH Cancelled MCHC Cancelled RDW Cancelled Plt Count Cancelled Total Counted Seg Neutrophils % Cancelled Seg Neuts % (Manual) Band Neutrophils % Lymphocytes % Cancelled Lymphocytes % (Manual) Monocytes % Cancelled Monocytes % (Manual) Eosinophils % Cancelled Eosinophils % (Manual) Basophils % Cancelled Basophils % (Manual) Absolute Neutrophils Cancelled Abs Neuts (Manual) Absolute Lymphocytes Cancelled Abs Lymphs (Manual) Absolute Monocytes Cancelled Abs Monocytes (Manual) Absolute Eosinophils Cancelled Absolute Eos (Manual) Absolute Basophils Cancelled Abs Basophils (Manual) Toxic Granulation Platelet Estimate Cancelled Large Platelets Giant Platelets Platelet Comment Polychromasia Poikilocytosis Anisocytosis Ovalocytes ESR PT INR Sodium Cancelled Potassium Cancelled Chloride Cancelled Carbon Dioxide Cancelled Anion Gap Cancelled BUN Cancelled Creatinine Cancelled Est GFR ( Amer) Cancelled Est GFR (Non-Af Amer) Cancelled Glucose Cancelled POC Glucose 152 H Lactic Acid Calcium Cancelled Total Bilirubin Cancelled Direct Bilirubin Cancelled Neonat Total Bilirubin Cancelled Neonat Direct Bilirubin Cancelled Neonat Indirect Bili Cancelled AST Cancelled ALT Cancelled Alkaline Phosphatase Cancelled C-Reactive Protein Total Protein Cancelled Albumin Cancelled Influenza A (Rapid) Influenza B (Rapid) Slides for Path Review Cancelled 09/20/18 09/20/18 09/20/18 13:42 13:42 13:42 WBC RBC Hgb Hct MCV MCH MCHC RDW Plt Count Total Counted Seg Neutrophils % Seg Neuts % (Manual) Band Neutrophils % Lymphocytes % Lymphocytes % (Manual) Monocytes % Monocytes % (Manual) Eosinophils % Eosinophils % (Manual) Basophils % Basophils % (Manual) Absolute Neutrophils Abs Neuts (Manual) Absolute Lymphocytes Abs Lymphs (Manual) Absolute Monocytes Abs Monocytes (Manual) Absolute Eosinophils Absolute Eos (Manual) Absolute Basophils Abs Basophils (Manual) Toxic Granulation Platelet Estimate Large Platelets Giant Platelets Platelet Comment Polychromasia Poikilocytosis Anisocytosis Ovalocytes ESR PT 14.5 INR 1.07 Sodium Potassium Chloride Carbon Dioxide Anion Gap BUN Creatinine Est GFR ( Amer) Est GFR (Non-Af Amer) Glucose POC Glucose Lactic Acid 3.4 H Calcium Total Bilirubin Direct Bilirubin Neonat Total Bilirubin Neonat Direct Bilirubin Neonat Indirect Bili AST ALT Alkaline Phosphatase C-Reactive Protein Total Protein Albumin Influenza A (Rapid) NEGATIVE Influenza B (Rapid) NEGATIVE Slides for Path Review 09/20/18 09/20/18 09/20/18 15:02 15:02 15:02 WBC 36.4 H* RBC 3.09 L Hgb 8.7 L Hct 27.5 L MCV 89 MCH 28.1 MCHC 31.6 L RDW 24.1 H Plt Count 296 Total Counted 100 Seg Neutrophils % Not Reportable Seg Neuts % (Manual) 86 H Band Neutrophils % 8 H Lymphocytes % Not Reportable Lymphocytes % (Manual) 3 L Monocytes % Not Reportable Monocytes % (Manual) 3 Eosinophils % Not Reportable Eosinophils % (Manual) 0 Basophils % Not Reportable Basophils % (Manual) 0 Absolute Neutrophils Not Reportable Abs Neuts (Manual) 34.2 H Absolute Lymphocytes Not Reportable Abs Lymphs (Manual) 1.1 Absolute Monocytes Not Reportable Abs Monocytes (Manual) 1.1 Absolute Eosinophils Not Reportable Absolute Eos (Manual) 0.0 Absolute Basophils Not Reportable Abs Basophils (Manual) 0.0 Toxic Granulation SLIGHT Platelet Estimate Large Platelets PRESENT Giant Platelets PRESENT Platelet Comment ADEQUATE Polychromasia SLIGHT Poikilocytosis SLIGHT Anisocytosis 3+ Ovalocytes SLIGHT ESR 95 H PT INR Sodium 137.0 Potassium 3.3 L Chloride 99 Carbon Dioxide 28 Anion Gap 10 BUN 15 Creatinine 4.62 H Est GFR ( Amer) 16 L Est GFR (Non-Af Amer) 13 L Glucose 132 H POC Glucose Lactic Acid Calcium 8.5 Total Bilirubin 0.8 Direct Bilirubin 0.7 H Neonat Total Bilirubin Not Reportable Neonat Direct Bilirubin Not Reportable Neonat Indirect Bili Not Reportable AST 17 ALT 14 L Alkaline Phosphatase 122 C-Reactive Protein Total Protein 8.7 H Albumin 3.5 Influenza A (Rapid) Influenza B (Rapid) Slides for Path Review 09/20/18 15:02 WBC RBC Hgb Hct MCV MCH MCHC RDW Plt Count Total Counted Seg Neutrophils % Seg Neuts % (Manual) Band Neutrophils % Lymphocytes % Lymphocytes % (Manual) Monocytes % Monocytes % (Manual) Eosinophils % Eosinophils % (Manual) Basophils % Basophils % (Manual) Absolute Neutrophils Abs Neuts (Manual) Absolute Lymphocytes Abs Lymphs (Manual) Absolute Monocytes Abs Monocytes (Manual) Absolute Eosinophils Absolute Eos (Manual) Absolute Basophils Abs Basophils (Manual) Toxic Granulation Platelet Estimate Large Platelets Giant Platelets Platelet Comment Polychromasia Poikilocytosis Anisocytosis Ovalocytes ESR PT INR Sodium Potassium Chloride Carbon Dioxide Anion Gap BUN Creatinine Est GFR ( Amer) Est GFR (Non-Af Amer) Glucose POC Glucose Lactic Acid Calcium Total Bilirubin Direct Bilirubin Neonat Total Bilirubin Neonat Direct Bilirubin Neonat Indirect Bili AST ALT Alkaline Phosphatase C-Reactive Protein 68.5 H Total Protein Albumin Influenza A (Rapid) Influenza B (Rapid) Slides for Path Review Chest X-Ray 09/20/18 12:44 IMPRESSION: Improved but persistent minimal left basilar opacities likely atelectasis. Foot X-Ray 09/20/18 15:42 IMPRESSION: There is no evidence of osteomyelitis. - Vital Signs Vital signs: Temp Pulse Resp BP Pulse Ox 98.4 F 77 18 117/50 L 95 09/20/18 15:13 09/20/18 12:39 09/20/18 12:39 09/20/18 12:39 09/20/18 12:39 - Laboratory Result Diagrams: 09/20/18 15:02 09/20/18 15:02 Laboratory results interpreted by me: 09/20/18 09/20/18 09/20/18 13:27 13:42 15:02 WBC 36.4 H* RBC 3.09 L Hgb 8.7 L Hct 27.5 L MCHC 31.6 L RDW 24.1 H Seg Neuts % (Manual) 86 H Band Neutrophils % 8 H Lymphocytes % (Manual) 3 L Abs Neuts (Manual) 34.2 H ESR Potassium Creatinine Est GFR ( Amer) Est GFR (Non-Af Amer) Glucose POC Glucose 152 H Lactic Acid 3.4 H Direct Bilirubin ALT C-Reactive Protein Total Protein 09/20/18 09/20/18 09/20/18 15:02 15:02 15:02 WBC RBC Hgb Hct MCHC RDW Seg Neuts % (Manual) Band Neutrophils % Lymphocytes % (Manual) Abs Neuts (Manual) ESR 95 H Potassium 3.3 L Creatinine 4.62 H Est GFR ( Amer) 16 L Est GFR (Non-Af Amer) 13 L Glucose 132 H POC Glucose Lactic Acid Direct Bilirubin 0.7 H ALT 14 L C-Reactive Protein 68.5 H Total Protein 8.7 H Discharge - Discharge Clinical Impression: CKD (chronic kidney disease) stage V requiring chronic dialysis Foot osteomyelitis, right Qualifiers: Osteomyelitis type: unspecified type Qualified Code(s): M86.9 - Osteomyelitis, unspecified Sepsis Qualifiers: Sepsis type: sepsis due to unspecified organism Qualified Code(s): A41.9 - Sepsis, unspecified organism Leukocytosis Qualifiers: Leukocytosis type: unspecified Qualified Code(s): D72.829 - Elevated white blood cell count, unspecified Condition: Stable Disposition: [facility]
[2018-09-20] MEDS ORDERED: PIPERACILLIN/TAZOBACTAM 3.375 GM VIAL IV ONE (15:29)
[2018-09-20 15:40] LABS: ALANINE AMINOTRANSFERASE 14 U/L (21-72); ALBUMIN 3.5 g/dL (3.5-5.0); ALKALINE PHOSPHATASE 122 U/L (38-126); ANION GAP 10 (5-19); ASPARTATE AMINO TRANSFERASE 17 U/L (17-59); BILIRUBIN,DIRECT 0.7 mg/dL (0.0-0.4); BILIRUBIN,TOTAL 0.8 mg/dL (0.2-1.3); BLOOD UREA NITROGEN 15 mg/dL (7-20); CALCIUM 8.5 mg/dL (8.4-10.2); CARBON DIOXIDE 28 mmol/L (22-30); CHLORIDE 99 mmol/L (98-107); GLUCOSE 132 mg/dL (75-110); POTASSIUM 3.3 mmol/L (3.6-5.0); TOTAL PROTEIN 8.7 g/dL (6.3-8.2)
[2018-09-20 16:01] LABS: ABSOLUTE LYMPHOCYTES# (MANUAL) 1.1 10^3/uL (0.5-4.7); ABSOLUTE MONOCYTES # (MANUAL) 1.1 10^3/uL (0.1-1.4); ABSOLUTE NEUTROPHILS# (MANUAL) 34.2 10^3/uL (1.7-8.2); BAND NEUTROPHILS % (MANUAL) 8 % (3-5); BASOPHILS % (MANUAL) 0 % (0-2); EOSINOPHILS % (MANUAL) 0 % (0-6); LYMPHOCYTES % (MANUAL) 3 % (13-45); MONOCYTES % (MANUAL) 3 % (3-13); SEGMENTED NEUTROPHILS % (MAN) 86 % (42-78); TOTAL CELLS COUNTED 100
[2018-09-20 16:03] LABS: ANISOCYTOSIS 3+; POIKILOCYTOSIS SLIGHT; POLYCHROMASIA SLIGHT; TOXIC GRANULATION SLIGHT
[2018-09-20 16:04] LABS: OVALOCYTES SLIGHT; PLATELET COMMENT ADEQUATE; PLATELET GIANT PRESENT; PLATELET LARGE PRESENT
[2018-09-20 16:07] LABS: WHITE BLOOD COUNT 36.4 10^3/uL (4.0-10.5)
[2018-09-20] MEDS ORDERED: VANCOMYCIN HCL INJ 1000 MG VIAL IV ONE (16:17)
--- NOTE | 2018-09-20 16:17 | RADIOLOGY REPORT (SQ) ---
EXAM DESCRIPTION: FOOT RIGHT COMPLETE COMPLETED DATE/TIME: 09/20/2018 4:06 pm REASON FOR STUDY: foot wound, probes to bone COMPARISON: None. NUMBER OF VIEWS: Three views. TECHNIQUE: AP, lateral and oblique radiographic images acquired of the right foot. LIMITATIONS: None. FINDINGS: MINERALIZATION: Normal. BONES: Amputations of the 1st through 3rd digits. No bone destruction. JOINTS: No effusions. SOFT TISSUES: No soft tissue swelling. No foreign body. OTHER: No other significant finding. IMPRESSION: There is no evidence of osteomyelitis. TECHNICAL DOCUMENTATION: JOB ID: [id number] [employer]- All Rights Reserved Reading location - IP/workstation name: [email or web address]
[2018-09-21 12:06] LABS: PATH REVIEW PATHOLOGIST REVIEWED
== END 2018-09-20 19:00 | disposition short-term general hospital (02) ==
LOC: ER 12:05
DX: D72.829 Elevated white blood cell count, unspecified (principal); A41.9 Sepsis, unspecified organism; M86.9 Osteomyelitis, unspecified; E11.22 Type 2 diabetes mellitus with diabetic chronic kidney disease; I13.0 Hypertensive heart and chronic kidney disease with heart failure and stage 1 through stage 4 chronic kidney disease, or unspecified chronic kidney disease; R50.9 Fever, unspecified; N18.4 Chronic kidney disease, stage 4 (severe); I48.91 Unspecified atrial fibrillation; I50.9 Heart failure, unspecified; Z95.1 Presence of aortocoronary bypass graft; Z99.2 Dependence on renal dialysis; Z88.3 Allergy status to other anti-infective agents
CPT/HCPCS: 99285; 96365; 96366; 96367; 36415; 87040; 87070; 87205; 82962; 85025; 85652; 85610; 86140; 87077; 80053; 87186; 83605; 87804; 71045; 73630; J3370; J2543

== ENCOUNTER 2018-11-08 21:53 | Inpatient (IN) | payer OTHER, MEDICARE ==
[2018-11-08] MEDS ORDERED: ACETAMINOPHEN 325 MG SUPP.RECT PR ONE (22:25)
[2018-11-08] MEDS ORDERED: CEFEPIME 1 GM/D5W RTU 1 GM/50 ML RTUPB IV ONE (22:33)
[2018-11-08] MEDS ORDERED: CLINDAMYCIN 600 MG/D5W RTU 600 MG/50 ML RTUPB IV ONE (22:34)
--- NOTE | 2018-11-08 22:40 | ER Document Report ---
ED General - General Chief Complaint: Blood Pressure Problem Stated Complaint: HYPOTENSION Time Seen by Provider: 11/08/18 22:17 Primary Care Provider: STEFANIE JOSHI MD [Primary Care Provider] - Follow up as needed Mode of Arrival: Medic Information source: Emergency Med Personnel Notes: This is a 63-year-old man with a complicated medical history including end-stage renal disease (hemodialysis, left arm shunt), osteomyelitis (right BKA), history of septic shock (Pseudomonas) obstructive sleep apnea, diabetes, hypertension, coronary artery disease, atrial fibrillation. [facility] because of generalized weakness and a low blood pressure in addition to fever of 1012. EMS noted a blood pressure of 105/49 in the field. In the ER, the patient is noted to have a cough and he is febrile to 103.2. Note: Patient had dialysis today. TRAVEL OUTSIDE OF THE [place] IN LAST 30 DAYS: No - HPI Onset: Just prior to arrival Onset/Duration: Gradual Quality of pain: No pain Severity: None Pain Level: Denies Associated symptoms: Nonproductive cough, Fever Exacerbated by: Denies Relieved by: Denies Similar symptoms previously: No Recently seen / treated by doctor: Yes - Related Data Allergies/Adverse Reactions: vancomycin [Vancomycin] Adverse Reaction (Unknown, Verified 11/08/18 23: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 Past Medical History - General Information source: Emergency Med Personnel - Social History Smoking Status: Unknown if Ever Smoked Cigarette use (# per day): No Chew tobacco use (# tins/day): No Frequency of alcohol use: None Drug Abuse: None Lives with: Intermediate Family History: Reviewed & Not Pertinent, CAD, Hypertension, Malignancy Patient has suicidal ideation: No Patient has homicidal ideation: No - Past Medical History Cardiac Medical History: Reports: Hx Atrial Fibrillation, Hx Congestive Heart Failure, Hx Coronary Artery Disease, Hx Heart Attack - x 3,triple bypass in october, Hx Hypertension, Hx Peripheral Vascular Disease Pulmonary Medical History: Denies: Hx Asthma, Hx Bronchitis, Hx COPD, Hx Pneumonia Neurological Medical History: Denies: Hx Cerebrovascular Accident, Hx Seizures Endocrine Medical History: Reports: Hx Diabetes Mellitus Type 1, Hx Diabetes Mellitus Type 2 Renal/ Medical History: Reports: Hx End Stage Renal Disease - Dialysis dependent, Hx Hemodialysis, Hx Renal Insufficiency. Denies: Hx Peritoneal Dialysis GI Medical History: Reports: Hx Gastroesophageal Reflux Disease. Denies: Hx Hepatitis, Hx Hiatal Hernia, Hx Ulcer Musculoskeletal Medical History: Denies Hx Arthritis Skin Medical History: Denies Hx Psoriasis Psychiatric Medical History: Reports: Hx Depression Traumatic Medical History: Denies: Hx Traumatic Brain Injury Infectious Medical History: Denies: Hx Hepatitis Past Surgical History: Reports: Hx Cardiac Catheterization, Hx Cardiac Surgery - triple bypass, Hx Coronary Artery Bypass Graft - X3 vessel on October 26, 2017, Hx Orthopedic Surgery - Right big toe amputation in 2014, left third and fourth toe amputation, Hx Vascular Surgery, Other - Cervical laminectomy in 2012. Denies: Hx Open Heart Surgery, Hx Pacemaker - Immunizations Hx Diphtheria, Pertussis, Tetanus Vaccination: Yes Hx Pneumococcal Vaccination: 02/05/15 Review of Systems - Review of Systems Constitutional: denies: Chills, Fever EENT: See HPI Cardiovascular: No symptoms reported Respiratory: See HPI Gastrointestinal: No symptoms reported Genitourinary: No symptoms reported Male Genitourinary: No symptoms reported Musculoskeletal: No symptoms reported Skin: No symptoms reported Hematologic/Lymphatic: No symptoms reported Neurological/Psychological: No symptoms reported Physical Exam - Vital signs Vitals: Temp Resp BP Pulse Ox 103.1 F H 30 H 147/73 H 94 11/08/18 21:53 11/08/18 21:53 11/08/18 21:53 11/08/18 21:53 Notes: Physical exam: GENERAL: This is a 63-year-old man is lying in the stretcher, no acute distress, his eyes are open and he does respond. He is febrile (103.2). Does have a cough. HEAD: Atraumatic, normocephalic. EYES: Pupils equal round and reactive to light, extraocular movements intact, sclera anicteric, conjunctiva are normal. ENT: oropharynx clear without exudates. Moist mucous membranes. NECK: Normal range of motion, supple without obvious mass or JVD. LUNGS: Breath sounds clear to auscultation bilaterally and equal. No wheezes rales or rhonchi. Chest: Sternotomy scar healed and intact HEART: Regular rate and rhythm without murmurs, rubs or gallops. Back: No obvious skin lesions ABDOMEN: Soft, normoactive bowel sounds. No tenderness to palpation. No guarding, no rebound. No masses appreciated. EXTREMITIES: Right BKA. There is no erythema or discharge from the stump. The tissue is sof t. There is no obvious fluctuance. Left upper extremity: Shunt with good thrill. Left hand: He does have mild erythema and tenderness along the proximal and mid phalanx of the middle finger. There is degeneration of the finger nail bed. No obvious fluctuance or abscess. There is minimal erythema over the second left finger but no significant tenderness to palpation. NEUROLOGICAL: His eyes are open, is not conversant, he does not appear in significant distress SKIN: As noted above Course - Re-evaluation Re-evalutation: 11/08/18 22:40 Note: Due to the fact that he is a dialysis patient, we will be cautious with the IV fluids. She did receive 500 cc of fluid. IV cefepime and IV clindamycin ordered. Tylenol rectally already given. Labs with lactic acid pending. - Vital Signs Vital signs: Temp Pulse Resp BP Pulse Ox 103.1 F H 22 H 148/54 H 98 11/08/18 21:53 11/09/18 00:01 11/09/18 00:01 11/09/18 00:01 - Laboratory Result Diagrams: 11/08/18 22:40 11/08/18 22:40 Laboratory results interpreted by me: 11/08/18 11/08/18 22:40 22:40 RBC 3.51 L Hgb 10.3 L Hct 32.7 L MCHC 31.4 L RDW 23.2 H Seg Neutrophils % 79.4 H Lymphocytes % 8.7 L Potassium 5.1 H Chloride 97 L BUN 25 H Creatinine 5.28 H Est GFR ( Amer) 13 L Est GFR (Non-Af Amer) 11 L Glucose 130 H Direct Bilirubin 0.6 H ALT 12 L Alkaline Phosphatase 129 H Creatine Kinase 33 L - EKG Interpretation by Me Rate: Normal Rhythm: A.Fib - EKG shows atrial fibrillation with a ventricular rate of 97, there is a right bundle branch block. EKG is uncut change from 09/05/2018 Critical Care Note - Critical Care Note Total time excluding time spent on procedures (mins): 60 Discharge - Discharge Clinical Impression: Sepsis, Pneumonia Condition: Stable Disposition: ADMITTED INPATIENT Admitting Provider: [facility] Unit Admitted: Telemetry Referrals: STEFANIE JOSHI MD [Primary Care Provider] - Follow up as needed
[2018-11-08 22:56] LABS: ABSOLUTE BASOPHILS # (AUTO) 0.1 10^3/uL (0.0-0.2); ABSOLUTE EOSINOPHILS # (AUTO) 0.3 10^3/uL (0.0-0.6); ABSOLUTE LYMPHOCYTES (AUTO) 0.8 10^3/uL (0.5-4.7); ABSOLUTE MONOCYTES (AUTO) 0.8 10^3/uL (0.1-1.4); ABSOLUTE NEUT (AUTO) 7.4 10^3/uL (1.7-8.2); BASOPHILS % (AUTO) 0.9 % (0-2); EOSINOPHILS % (AUTO) 2.9 % (0-6); HEMATOCRIT 32.7 % (37.9-51.0); HEMOGLOBIN 10.3 g/dL (13.5-17.0); LYMPHOCYTES % (AUTO) 8.7 % (13-45); MEAN CORPUSCULAR HEMOGLOBIN 29.4 pg (27.0-33.4); MEAN CORPUSCULAR HGB CONC 31.4 g/dL (32.0-36.0); MEAN CORPUSCULAR VOLUME 93 fl (80-97); MONOCYTES % (AUTO) 8.1 % (3-13); PLATELET COUNT 249 10^3/uL (150-450); RED BLOOD COUNT 3.51 10^6/uL (4.35-5.55); RED CELL DISTRIBUTION WIDTH 23.2 % (11.5-14.0); SEGMENTED NEUTROPHILS % (AUTO) 79.4 % (42-78); TOTAL CELLS COUNTED % (AUTO) 100 %; WHITE BLOOD COUNT 9.4 10^3/uL (4.0-10.5)
[2018-11-08 23:12] LABS: ALANINE AMINOTRANSFERASE 12 U/L (21-72); ALKALINE PHOSPHATASE 129 U/L (38-126); ANION GAP 11 (5-19); ASPARTATE AMINO TRANSFERASE 26 U/L (17-59); BILIRUBIN,DIRECT 0.6 mg/dL (0.0-0.4); BILIRUBIN,TOTAL 0.7 mg/dL (0.2-1.3); BLOOD UREA NITROGEN 25 mg/dL (7-20); CALCIUM 9.1 mg/dL (8.4-10.2); CARBON DIOXIDE 30 mmol/L (22-30); CHLORIDE 97 mmol/L (98-107); CREATINE KINASE 33 U/L (55-170); GLUCOSE 130 mg/dL (75-110); POTASSIUM 5.1 mmol/L (3.6-5.0); SODIUM 138.3 mmol/L (137-145)
--- NOTE | 2018-11-08 23:20 | RADIOLOGY REPORT (SQ) ---
EXAM DESCRIPTION: XR HAND 3 OR MORE VIEWS COMPLETED DATE/TME: 11/08/2018 22:33 CLINICAL HISTORY: 63 years, Male, erythema-middle finger COMPARISON: None. NUMBER OF VIEWS: Three TECHNIQUE: Frontal, oblique, and lateral radiographs of the left hand were obtained. LIMITATIONS: None. FINDINGS: Arterial calcinosis. Ulnar positive variance. Remaining visualized osseous structures appear normal without acute fracture or dislocation. Joint spaces are overall well-maintained. However, there is soft tissue swelling about the third digit. IMPRESSION: Soft tissue swelling about the third digit without underlying acute osseous anomaly. copyright 2010 [employer]- All Rights Reserved
--- NOTE | 2018-11-08 23:23 | RADIOLOGY REPORT (SQ) ---
2 VIEWS OF RIGHT KNEE HISTORY: Fever, right knee stump. COMPARISON: None. FINDINGS: There has been a prior below the knee amputation with swelling at the stump site. There is no cortical erosion or periosteal reaction to suggest acute osteomyelitis. No acute fracture or dislocation. Vascular calcifications are present. No knee joint effusion. Generalized osteopenia is present. IMPRESSION: 1. No radiographic evidence of osteomyelitis. If there is high clinical concern, consider MRI or bone scintigraphy for further evaluation. 2. Mild swelling at the stump site.
[2018-11-08 23:24] LABS: CREATINE KINASE MB 0.54 ng/mL (<4.55)
[2018-11-08 23:27] LABS: TROPONIN I 0.106 ng/mL
--- NOTE | 2018-11-08 23:29 | RADIOLOGY REPORT (SQ) ---
EXAM DESCRIPTION: XR CHEST 1 VIEW COMPLETED DATE/TME: 11/08/2018 00:00 CLINICAL HISTORY: 63 years Male, weakness COMPARISON: None. NUMBER OF VIEWS/TECHNIQUE: 1/AP FINDINGS: Moderate opacity with possible effusion of the right lower 40% hemithorax. Small bandlike opacity of the left lung base. Moderate to severe cardiac enlargement. Sternotomy. Moderate lung volume, moderate-severe enlargement of the cardiac silhouette, and intact bony thorax. IMPRESSION: 1. Moderate right lower lobar pneumonia. Recommend CR/CT surveillance including at 7-12 weeks following initiation of any clinically warranted therapy. 2. Moderate to severe cardiac enlargement.
[2018-11-09] MEDS ORDERED: PIPERACILLIN/TAZOBACTAM 4.5 GM VIAL IV PRN (00:36)
[2018-11-09] MEDS ORDERED: HEPARIN SOD (PORCINE) 5,000 UNIT/ML 1 ML SYRINGE SUBCUT ONE (00:45)
[2018-11-09 00:55] LABS: ALANINE AMINOTRANSFERASE 16 U/L (21-72); ALBUMIN 3.8 g/dL (3.5-5.0); ALKALINE PHOSPHATASE 129 U/L (38-126); ANION GAP 11 (5-19); ASPARTATE AMINO TRANSFERASE 26 U/L (17-59); BILIRUBIN,DIRECT 0.6 mg/dL (0.0-0.4); BILIRUBIN,TOTAL 0.6 mg/dL (0.2-1.3); BLOOD UREA NITROGEN 25 mg/dL (7-20); CARBON DIOXIDE 29 mmol/L (22-30); CHLORIDE 97 mmol/L (98-107); GLUCOSE 131 mg/dL (75-110); POTASSIUM 5.2 mmol/L (3.6-5.0); SODIUM 137.4 mmol/L (137-145); TOTAL PROTEIN 7.8 g/dL (6.3-8.2)
[2018-11-09 01:01] LABS: INTERNATIONAL RATION (INR) 1.19; PROTHROMBIN TIME 15.7 SEC (11.4-15.4)
[2018-11-09 01:04] LABS: ABSOLUTE BASOPHILS # (AUTO) 0.1 10^3/uL (0.0-0.2); ABSOLUTE EOSINOPHILS # (AUTO) 0.2 10^3/uL (0.0-0.6); ABSOLUTE LYMPHOCYTES (AUTO) 0.8 10^3/uL (0.5-4.7); ABSOLUTE MONOCYTES (AUTO) 0.8 10^3/uL (0.1-1.4); ABSOLUTE NEUT (AUTO) 8.1 10^3/uL (1.7-8.2); BASOPHILS % (AUTO) 0.5 % (0-2); HEMATOCRIT 33.1 % (37.9-51.0); HEMOGLOBIN 10.4 g/dL (13.5-17.0); MEAN CORPUSCULAR HEMOGLOBIN 29.1 pg (27.0-33.4); MEAN CORPUSCULAR HGB CONC 31.4 g/dL (32.0-36.0); MEAN CORPUSCULAR VOLUME 93 fl (80-97); MONOCYTES % (AUTO) 7.6 % (3-13); PLATELET COUNT 237 10^3/uL (150-450); RED BLOOD COUNT 3.57 10^6/uL (4.35-5.55); SEGMENTED NEUTROPHILS % (AUTO) 81.9 % (42-78); TOTAL CELLS COUNTED % (AUTO) 100 %; WHITE BLOOD COUNT 9.9 10^3/uL (4.0-10.5)
[2018-11-09 01:09] LABS: TOTAL PROTEIN 7.9 g/dL (6.3-8.2)
[2018-11-09] MEDS: PIPERACILLIN SODIUM/TAZOBACTAM 4.5 GM in NORMAL SALINE 100 ML IV SCH ×4 (02:53→22:09)
[2018-11-09] MEDS ORDERED: HEPARIN SOD (PORCINE) 5,000 UNIT/ML 1 ML SYRINGE SUBCUT SCH (06:00)
--- NOTE | 2018-11-09 07:44 | EKG REPORT ---
SEVERITY:- ABNORMAL ECG - SINUS RHYTHM RBBB AND LPFB : Confirmed by: Marco Antonio Padilla MD 09-Nov-2018 07:43:51
[2018-11-09] MEDS ORDERED: DEXTROSE 40% GEL 15 GM TUBE PO PRN ×2 (09:50)
[2018-11-09] MEDS ORDERED: DEXTROSE 50%-WATER 25 GM/50 ML DISP.SYRIN IV PRN ×2 (09:50)
[2018-11-09] MEDS ORDERED: GLUCAGON,HUMAN RECOMB 1 MG INJ IM PRN (09:50)
[2018-11-09] MEDS: INSULIN LISPRO 100 UNIT/ML 3 ML VIAL SUBCUT SCH ×3 (13:17→22:13)
[2018-11-09] MEDS ORDERED: ONDANSETRON 4 MG TAB.RAPDIS PO PRN (13:26)
[2018-11-09] MEDS ORDERED: AMINO AC PO SCH (13:30)
[2018-11-09] MEDS ORDERED: PROTEIN HYDR PO SCH (13:30)
[2018-11-09] MEDS ORDERED: [UNRECOGNIZED DRUG - OTHER] PO SCH (13:30)
[2018-11-09] MEDS ORDERED: WHEY PRO PO SCH (13:30)
[2018-11-09] MEDS ORDERED: MIDODRINE HCL 2.5 MG PO SCH (14:00)
[2018-11-09] MEDS: APIXABAN 2.5 MG TABLET PO SCH ×2 (15:54→17:44)
[2018-11-09] MEDS: LACTULOSE SYRUP 20 GM/30 ML UDCUP PO SCH (16:17)
[2018-11-09] MEDS: AMIODARONE HCL 200 MG TABLET PO SCH (16:17)
[2018-11-09] MEDS: CALCIUM ACETATE 667 MG CAPSULE PO SCH ×2 (16:17→17:43)
[2018-11-09] MEDS: GABAPENTIN 100 MG CAPSULE PO SCH ×2 (16:20→22:11)
[2018-11-09] MEDS: MIDODRINE HCL 5 MG TABLET PO SCH (17:49)
[2018-11-09] MEDS: OXYCODONE HCL IR 5 MG TABLET PO PRN (17:53)
--- NOTE | 2018-11-09 19:42 | PDOC H&P ---
History of Present Illness Admission Date/PCP: 11/09/18 00:53 VONDA JIMENEZ MD History of Present Illness: CHAPITO LESLIE is a 63 year old male,He has end-stage renal disease on main tenance hemodialysis, status post right below-knee amputation presently in the group home undergoing rehabilitation he was transferred from the group home to the emergency room for evaluation of low blood pressure and possible sepsis. The temperature recorded by EMS was 1-1.2 but when he arrived in the emergency room his temperature recorded was 103.1. A chest x-ray was done it demonstrated moderate opacity with possible effusion of the right lower hemithorax he has a moderate right lower lobe pneumonia. Past Medical History Cardiac Medical History: Reports: Atrial Fibrillation, Congestive Heart Failure, Coronary Artery Disease, Myocardial Infarction - x 3,triple bypass in october, Hypertension, Peripheral Vascular Disease Endocrine Medical History: Reports: Diabetes Mellitus Type 2 Renal/ Medical History: Reports: End Stage Renal Disease - Dialysis dependent GI Medical History: Reports: Gastroesophageal Reflux Disease Psychiatric Medical History: Reports: Depression Traumatic Medical History: Denies: Traumatic Brain Injury Past Surgical History Past Surgical History: Reports: Cardiac Catheterization, Coronary Artery Bypass Graft - X3 vessel on October 26, 2017, Orthopedic Surgery - Right big toe amputation in 2014, left third and fourth toe amputation, Vascular Surgery, Other - Cervical laminectomy in 2012 Social History Lives with: Long-Term Smoking Status: Unknown if Ever Smoked Frequency of Alcohol Use: Rare Hx Recreational Drug Use: No Drugs: None Hx Prescription Drug Abuse: No Family History Family History: Reviewed & Not Pertinent, CAD, Hypertension, Malignancy Parental Family History Reviewed: Yes Children Family History Reviewed: Yes Sibling(s) Family History Reviewed.: Yes Medication/Allergy Home Medications: Clopidogrel Bisulfate [Plavix 75 mg Tablet] 75 mg PO DAILY 01/30/18 Amino AC/Protein Hydr/Whey Pro [Prosource Plus Liquid Packet] 1 pkt PO BID 11/09/18 Amiodarone HCl [Cordarone 200 mg Tablet] 200 mg PO DAILY 11/09/18 Apixaban [Eliquis 2.5 mg Tablet] 2.5 mg PO BID 11/09/18 Aspirin [Aspirin 81 mg Chewable Tablet] 81 mg PO DAILY 11/09/18 Atorvastatin Calcium [Lipitor 40 mg Tablet] 40 mg PO QHS 11/09/18 Calcium Acetate [Phoslo 667 Mg Capsule] 667 mg PO MEALS 11/09/18 Doxercalciferol [Hectorol] 0.5 mcg IV MOWEFR@1000 11/09/18 Gabapentin [Neurontin 100 mg Capsule] 100 mg PO Q12 11/09/18 Lactulose [Cephulac 20 gm/30 ml Syrup UD Cup] 20 gm PO DAILY 11/09/18 Midodrine HCl 2.5 mg PO Q8 11/09/18 Mirtazapine [Remeron] 30 mg PO QHS 11/09/18 Ondansetron [Zofran Odt 4 mg Tablet] 4 mg PO Q6HP PRN 11/09/18 Oxycodone HCl [Oxy-Ir 5 mg Tablet] 10 mg PO Q8HP PRN 11/09/18 Allergies/Adverse Reactions: vancomycin [Vancomycin] Adverse Reaction (Unknown, 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 ABSENT: hemoptysis Gastrointestinal: ABSENT: abdominal pain, constipation, diarrhea, hematemesis, hematochezia, nausea, vomiting Genitourinary: ABSENT: dysuria, hematuria Musculoskeletal: ABSENT: joint swelling Integumentary: ABSENT: rash, wounds Neurological: ABSENT: abnormal gait, abnormal speech, confusion, dizziness, focal weakness, syncope Psychiatric: ABSENT: anxiety, depression, homidical ideation, suicidal ideation Endocrine: ABSENT: cold intolerance, heat intolerance, menstrual abnormalities, polydipsia, polyuria Hematologic/Lymphatic: ABSENT: easy bleeding, easy bruising, lymphadenopathy Physical Exam Vital Signs: Temp Pulse Resp BP Pulse Ox 98.5 F 66 18 147/50 H 98 11/09/18 15:17 11/09/18 15:45 11/09/18 15:17 11/09/18 15:17 11/09/18 15:17 Intake & Output 11/08/18 11/09/18 11/10/18 06:59 06:59 06:59 Intake Total 200 300 Balance 200 300 Weight 68.039 kg General appearance: PRESENT: no acute distress Head exam: PRESENT: atraumatic, normocephalic Eye exam: PRESENT: PERRLA Ear exam: PRESENT: normal external ear exam Mouth exam: PRESENT: moist, tongue midline Neck exam: PRESENT: full ROM Respiratory exam: PRESENT: decreased breath sounds Cardiovascular exam: PRESENT: RRR, +S1, +S2 Pulses: PRESENT: normal dorsalis pedis pul, +2 pedal pulses bilateral Vascular exam: PRESENT: normal capillary refill GI/Abdominal exam: PRESENT: normal bowel sounds, soft Rectal exam: PRESENT: deferred Extremities exam: PRESENT: right BKA, other - There is erythema affecting the middle finger of the left hand, the nailbed looks roughened and necrotic Neurological exam: PRESENT: alert Skin exam: PRESENT: dry, intact, warm Results Laboratory Results: 11/08/18 23:41 11/08/18 23:41 11/08/18 11/08/18 11/08/18 22:40 22:40 22:40 WBC 9.4 RBC 3.51 L Hgb 10.3 L Hct 32.7 L MCV 93 MCH 29.4 MCHC 31.4 L RDW 23.2 H Plt Count 249 Seg Neutrophils % 79.4 H Lymphocytes % 8.7 L Monocytes % 8.1 Eosinophils % 2.9 Basophils % 0.9 Absolute Neutrophils 7.4 Absolute Lymphocytes 0.8 Absolute Monocytes 0.8 Absolute Eosinophils 0.3 Absolute Basophils 0.1 Sodium 138.3 Potassium 5.1 H Chloride 97 L Carbon Dioxide 30 Anion Gap 11 BUN 25 H Creatinine 5.28 H Est GFR ( Amer) 13 L Est GFR (Non-Af Amer) 11 L Glucose 130 H Lactic Acid 1.5 Calcium 9.1 Total Bilirubin 0.7 AST 26 ALT 12 L Alkaline Phosphatase 129 H Total Protein 8.0 Albumin 4.0 11/08/18 11/08/18 11/08/18 22:40 23:41 23:41 WBC 9.9 RBC 3.57 L Hgb 10.4 L Hct 33.1 L MCV 93 MCH 29.1 MCHC 31.4 L RDW 23.0 H Plt Count 237 Seg Neutrophils % 81.9 H Lymphocytes % 8.0 L Monocytes % 7.6 Eosinophils % 2.0 Basophils % 0.5 Absolute Neutrophils 8.1 Absolute Lymphocytes 0.8 Absolute Monocytes 0.8 Absolute Eosinophils 0.2 Absolute Basophils 0.1 Sodium 137.4 Potassium 5.2 H Chloride 97 L Carbon Dioxide 29 Anion Gap 11 BUN 25 H Creatinine 5.23 H Est GFR ( Amer) 13 L Est GFR (Non-Af Amer) 11 L Glucose 131 H Lactic Acid Calcium 9.0 Total Bilirubin 0.6 AST 26 ALT 16 L Alkaline Phosphatase 129 H Total Protein 7.9 7.8 Albumin 3.8 11/09/18 03:59 WBC RBC Hgb Hct MCV MCH MCHC RDW Plt Count Seg Neutrophils % Lymphocytes % Monocytes % Eosinophils % Basophils % Absolute Neutrophils Absolute Lymphocytes Absolute Monocytes Absolute Eosinophils Absolute Basophils Sodium Potassium Chloride Carbon Dioxide Anion Gap BUN Creatinine Est GFR ( Amer) Est GFR (Non-Af Amer) Glucose Lactic Acid 1.0 Calcium Total Bilirubin AST ALT Alkaline Phosphatase Total Protein Albumin 11/08/18 11/08/18 22:40 22:40 Creatine Kinase 33 L CK-MB (CK-2) 0.54 Troponin I 0.106 Impressions: Chest X-Ray 11/08/18 00:00 IMPRESSION: 1. Moderate right lower lobar pneumonia. Recommend CR/CT surveillance including at 7-12 weeks following initiation of any clinically warranted therapy. 2. Moderate to severe cardiac enlargement. Hand X-Ray 11/08/18 22:33 IMPRESSION: Soft tissue swelling about the third digit without underlying acute osseous anomaly. copyright 2010 [employer]- All Rights Reserved Knee X-Ray 11/08/18 22:33 IMPRESSION: 1. No radiographic evidence of osteomyelitis. If there is high clinical concern, consider MRI or bone scintigraphy for further evaluation. 2. Mild swelling at the stump site. Assessment & Plan - Diagnosis (1) Right lower lobe pneumonia Qualifiers: Pneumonia type: due to unspecified organism Qualified Code(s): J18.1 - Lobar pneumonia, unspecified organism Is this a current diagnosis for this admission?: Yes Plan: Patient have allergy to vancomycin, resident of the group home, also recently discharged from inpatient care when he underwent amputation of his right leg he has Health care associated pneumonia, he will need antibiotic that will have a broad-spectrum coverage against gram-negative organisms, MRSA (2) End stage renal disease Is this a current diagnosis for this admission?: Yes Plan: Patient will need hemodialysis while in the hospital, consultation will be obtained from nephrology (3) Chronic atrial fibrillation Is this a current diagnosis for this admission?: Yes (4) Type 2 diabetes mellitus Qualifiers: Diabetes mellitus prison insulin use: with oil heaterman use Diabetes mellit complication status: with other specified complication Qualified Code(s): E11.69 - Type 2 diabetes mellitus with other specified complication; Z79.4 - oil heaterman (current) use of insulin; Z79.4 - [facility] (current) use of insulin; Z79.4 - oil heaterman (current) use of insulin; Z79.4 - [facility] (current) use of insulin Is this a current diagnosis for this admission?: Yes
[2018-11-09] MEDS: MIRTAZAPINE 15 MG TABLET PO SCH (22:10)
[2018-11-09] MEDS: ATORVASTATIN CALCIUM 40 MG TABLET PO SCH (22:12)
[2018-11-10] MEDS: PIPERACILLIN SODIUM/TAZOBACTAM 4.5 GM in NORMAL SALINE 100 ML IV SCH ×4 (03:01→20:45)
[2018-11-10] MEDS ORDERED: NORMAL SALINE 1000 ML 1,000 ML IV PRN (05:00)
[2018-11-10 05:29] LABS: HEMATOCRIT 30.9 % (37.9-51.0); HEMOGLOBIN 9.7 g/dL (13.5-17.0); MEAN CORPUSCULAR HEMOGLOBIN 29.2 pg (27.0-33.4); MEAN CORPUSCULAR HGB CONC 31.2 g/dL (32.0-36.0); MEAN CORPUSCULAR VOLUME 94 fl (80-97); PLATELET COUNT 212 10^3/uL (150-450); RED CELL DISTRIBUTION WIDTH 22.5 % (11.5-14.0); WHITE BLOOD COUNT 5.9 10^3/uL (4.0-10.5)
[2018-11-10 05:42] LABS: ANION GAP 13 (5-19); BLOOD UREA NITROGEN 42 mg/dL (7-20); CALCIUM 9.1 mg/dL (8.4-10.2); CARBON DIOXIDE 27 mmol/L (22-30); CHLORIDE 99 mmol/L (98-107); GLUCOSE 110 mg/dL (75-110); POTASSIUM 5.3 mmol/L (3.6-5.0); SODIUM 139.3 mmol/L (137-145)
[2018-11-10 06:35] LABS: ABSOLUTE LYMPHOCYTES# (MANUAL) 0.6 10^3/uL (0.5-4.7); ABSOLUTE MONOCYTES # (MANUAL) 0.8 10^3/uL (0.1-1.4); ABSOLUTE NEUTROPHILS# (MANUAL) 3.6 10^3/uL (1.7-8.2); BASOPHILS % (MANUAL) 4 % (0-2); EOSINOPHILS % (MANUAL) 12 % (0-6); LYMPHOCYTES % (MANUAL) 10 % (13-45); MONOCYTES % (MANUAL) 13 % (3-13); SEGMENTED NEUTROPHILS % (MAN) 61 % (42-78); TOTAL CELLS COUNTED 100
[2018-11-10 06:37] LABS: ANISOCYTOSIS 3+; HYPOCHROMASIA 1+; OVALOCYTES 1+; PLATELET COMMENT ADEQUATE; SCHISTOCYTES SLIGHT; TARGET CELLS SLIGHT
[2018-11-10] MEDS: INSULIN LISPRO 100 UNIT/ML 3 ML VIAL SUBCUT SCH ×4 (08:05→22:22)
[2018-11-10] MEDS: CALCIUM ACETATE 667 MG CAPSULE PO SCH ×3 (08:06→18:31)
[2018-11-10] MEDS ORDERED: DOXERCALCIFEROL 0.5 MCG IV SCH (10:00)
[2018-11-10] MEDS ORDERED: EPOETIN ALFA 5,000 UNIT in SYRINGE, DISPOSABLE, 1 EACH IV ONE (11:00)
--- NOTE | 2018-11-10 11:35 | CONSULTATION REPORT E ---
Consultation Report NAME: CHAPITO LESLIE : 1955 AGE: 63Y DATE: 11/10/2018 332 A TO: LINH RENAE M.D. FROM: VONDA JIMENEZ M.D. Requesting Physician REASON FOR CONSULTATION: Left middle finger infection. HISTORY OF PRESENT ILLNESS: The patient is a 63-year-old man with endstage renal disease, on dialysis, who has recently undergone a below-knee amputation at [facility]. The patient was in a 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 facility rehabilitation. He was transferred to [facility] due to hypotension and septicemia. He was admitted to the medical service with a right lower lobe pneumonia. He is currently on Zosyn and is receiving dialysis this morning. PAST MEDICAL HISTORY: 1. Atrial fibrillation. 2. Congestive heart failure. 3. Endstage renal disease, on hemodialysis. 4. Coronary artery disease. 5. Myocardial infarction. 6. Peripheral vascular disease. 7. Type 2 diabetes mellitus. PAST SURGICAL HISTORY: 1. Recent below-knee amputation. 2. Coronary artery bypass graft 2017. 3. Right great toe amputation 2014. 4. Cervical laminectomy 2012. 5. Left third and fourth toe amputation. SOCIAL HISTORY: Denies use of alcohol, tobacco, or recreational drugs. PHYSICAL EXAMINATION: GENERAL: He is currently undergoing dialysis. He is a pleasant, well-appearing man in no acute distress. He is alert and appropriate. VITAL SIGNS: Temperature 98.6, blood pressure 125/65, pulse 68, respirations 16. HEENT: Normocephalic, atraumatic. Extraocular movements intact. NECK: Supple. PULMONARY: He is able to take deep breaths with an intermittent cough. EXTREMITIES: Examination of the left hand, the patient has chronic findings of ischemia of the left long finger with a necrotic nail bed. There is some mild erythema and mild fluctuance of the distal aspect of the dorsal middle phalanx. There is no discomfort or swelling of the flexor sheath. He has full motion of the MP and PIP joints of the digit without discomfort. RADIOGRAPHS: Radiographs of the hand, 3 views, independently reviewed. There is no evidence of bone infection. IMPRESSION: Left middle finger cellulitis in the setting of vascular insufficiency in a patient with endstage renal disease. RECOMMENDATIONS: The patient is currently on a broad-spectrum antibiotic, Zosyn, for his right lower lobe pneumonia. I would recommend evaluating the digit over the next several days while he is on this antibiotic as there is a good chance that this mild soft tissue infection will resolve on this broad spectrum antibiotic. If the infection of the digit fails to resolve, he may require an amputation of the digit at the level of the proximal interphalangeal joint. I have discussed this with the patient. I will continue to follow the patient as an inpatient. DICTATING PHYSICIAN: LINH RENAE M.D. [id number] PHY#: [id number] ID: [id number] JOB#: [id number] ACCT: [id number] cc:LINH RENAE M.D. > MTDD
[2018-11-10] MEDS: MIDODRINE HCL 5 MG TABLET PO SCH ×3 (12:04→18:31)
[2018-11-10] MEDS: GABAPENTIN 100 MG CAPSULE PO SCH ×2 (12:04→21:53)
[2018-11-10] MEDS: AMIODARONE HCL 200 MG TABLET PO SCH (12:04)
[2018-11-10] MEDS: LACTULOSE SYRUP 20 GM/30 ML UDCUP PO SCH (12:05)
[2018-11-10] MEDS: APIXABAN 2.5 MG TABLET PO SCH (12:10)
[2018-11-10] MEDS: OXYCODONE HCL IR 5 MG TABLET PO PRN ×2 (12:13→21:59)
[2018-11-10] MEDS: ACETAMINOPHEN 325 MG TABLET PO PRN (16:18)
--- NOTE | 2018-11-10 20:26 | PDOC PROGRESS REPORT ---
Subjective Progress Note for:: 11/10/18 Subjective:: Patient seen by the bedside he was dialyzed today, he was also seen by the surgeon, the thoracentesis could not be done because he had Eliquis anticoagulant Reason For Visit: PNEUMONIA Physical Exam Vital Signs: Temp Pulse Resp BP Pulse Ox 98.8 F 63 16 130/55 H 93 11/10/18 15:01 11/10/18 15:01 11/10/18 15:01 11/10/18 15:01 11/10/18 15:01 Intake & Output 11/09/18 11/10/18 11/11/18 06:59 06:59 06:59 Intake Total 200 600 775 Output Total 0 0 Balance 200 600 775 Weight 68.039 kg 76.5 kg General appearance: PRESENT: no acute distress Eye exam: PRESENT: PERRLA Respiratory exam: PRESENT: rhonchi Cardiovascular exam: PRESENT: +S1, +S2 GI/Abdominal exam: PRESENT: soft Neurological exam: PRESENT: alert Results Laboratory Results: 11/10/18 05:08 11/10/18 05:08 11/10/18 11/10/18 05:08 05:08 WBC 5.9 RBC 3.30 L Hgb 9.7 L Hct 30.9 L MCV 94 MCH 29.2 MCHC 31.2 L RDW 22.5 H Plt Count 212 Seg Neutrophils % Not Reportable Lymphocytes % Not Reportable Monocytes % Not Reportable Eosinophils % Not Reportable Basophils % Not Reportable Absolute Neutrophils Not Reportable Absolute Lymphocytes Not Reportable Absolute Monocytes Not Reportable Absolute Eosinophils Not Reportable Absolute Basophils Not Reportable Sodium 139.3 Potassium 5.3 H Chloride 99 Carbon Dioxide 27 Anion Gap 13 BUN 42 H Creatinine 7.53 H Est GFR ( Amer) 9 L Est GFR (Non-Af Amer) 7 L Glucose 110 Calcium 9.1 11/08/18 11/08/18 22:40 22:40 Creatine Kinase 33 L CK-MB (CK-2) 0.54 Troponin I 0.106 Impressions: Chest X-Ray 11/08/18 00:00 IMPRESSION: 1. Moderate right lower lobar pneumonia. Recommend CR/CT surveillance including at 7-12 weeks following initiation of any clinically warranted therapy. 2. Moderate to severe cardiac enlargement. Hand X-Ray 11/08/18 22:33 IMPRESSION: Soft tissue swelling about the third digit without underlying acute osseous anomaly. copyright 2011 [employer]- All Rights Reserved Knee X-Ray 11/08/18 22:33 IMPRESSION: 1. No radiographic evidence of osteomyelitis. If there is high clinical concern, consider MRI or bone scintigraphy for further evaluation. 2. Mild swelling at the stump site. Assessment & Plan - Diagnosis (1) Right lower lobe pneumonia Qualifiers: Pneumonia type: due to unspecified organism Qualified Code(s): J18.1 - Lobar pneumonia, unspecified organism Is this a current diagnosis for this admission?: Yes Plan: Continue the antibiotic (2) End stage renal disease Is this a current diagnosis for this admission?: Yes Plan: Per nephrology (3) Chronic atrial fibrillation Is this a current diagnosis for this admission?: Yes (4) Type 2 diabetes mellitus Qualifiers: Diabetes mellitus terminal system operator insulin use: with detention use Diabetes mellitus complication status: with other specified complication Qualified Code(s): E11.69 - Type 2 diabetes mellitus with other specified complication; Z79.4 - skilled nursing (current) use of insulin; Z79.4 - skilled nursing (current) use of insulin; Z79.4 - keno terminal operator (current) use of insulin; Z79.4 - keno terminal operator (current) use of insulin Is this a current diagnosis for this admission?: Yes
[2018-11-10] MEDS: MIRTAZAPINE 15 MG TABLET PO SCH (21:52)
[2018-11-10] MEDS: ATORVASTATIN CALCIUM 40 MG TABLET PO SCH (21:53)
--- NOTE | 2018-11-10 22:05 | PDOC CONSULTATION ---
Consultation Consult Date: 11/10/18 Provider Consulted: SHEN AZUL Consult reason:: Hemodialysis treatment while in the hospital. History of Present Illness Admission Date/PCP: 11/09/18 00:53 VONDA JIMENEZ MD History of Present Illness: CHAPITO LESLIE is a 63 year old male known to me with history of end-stage renal disease on maintenance hemodialysis 3 times a week, coronary artery disease status post CABG x3, peripheral vascular disease status post right below-knee amputation, diabetes mellitus type 2 and hypertension who was brought to the emergency room for the [facility] last night because of low blood pressure and fever. In the emergency room he was found to have a temperature of 103.1. Chest x-ray showed right lower lobe pneumonia and pleural effusion. Patient was admitted for treatment of pneumonia. Patient's last hemodialysis was last Tuesday. I saw the patient during dialysis around 7:35 AM today. He tells me that he just started coughing with clear phlegm yesterday. He denies any shortness of breath nor chest pains. He knew that he had fever yesterday. When I saw him he was tolerating dialysis without any problems no new complaints. Past Medical History Cardiac Medical History: Reports: Atrial Fibrillation, CHF-Diastolic, Coronary Artery Disease, Hypertension-primary, Myocardial Infarction - x 3,triple bypass in october, Peripheral Vascular Disease Endocrine Medical History: Reports: Diabetes Mellitus Type 2 Complications of Diabetes: Reports: Nephropathy Renal/ Medical History: Reports: End Stage Renal Disease - Dialysis dependent, Hyperphosphatemia, Secondary Hyperparathyroidism GI Medical History: Reports: Gastroesophageal Reflux Disease Psychiatric Medical History: Reports: Depression Hematology Medical History: Reports Anemia of Chronic Kidney Disease Past Surgical History Past Surgical History: Reports: Cardiac Catheterization, Coronary Artery Bypass Graft - X3 vessel on October 26, 2017, Dialysis Access Surgery AVF, Orthopedic Surgery - Right big toe amputation in 2014, left third and fourth toe amputation, Vascular Surgery, Other - Cervical laminectomy in 2012; right AKA Social History Information Source: [facility] Records Lives with: [facility] Smoking Status: Former Smoker Frequency of Alcohol Use: Rare Hx Recreational Drug Use: No Drugs: None Hx Prescription Drug Abuse: No Family History Family History: Reviewed & Not Pertinent Parental Family History Reviewed: Yes Children Family History Reviewed: Yes Sibling(s) Family History Reviewed.: Yes Medication/Allergy Home Medications: Clopidogrel Bisulfate [Plavix 75 mg Tablet] 75 mg PO DAILY 01/30/18 Amino AC/Protein Hydr/Whey Pro [Prosource Plus Liquid Packet] 1 pkt PO BID 11/09/18 Amiodarone HCl [Cordarone 200 mg Tablet] 200 mg PO DAILY 11/09/18 Apixaban [Eliquis 2.5 mg Tablet] 2.5 mg PO BID 11/09/18 Aspirin [Aspirin 81 mg Chewable Tablet] 81 mg PO DAILY 11/09/18 Atorvastatin Calcium [Lipitor 40 mg Tablet] 40 mg PO QHS 11/09/18 Calcium Acetate [Phoslo 667 Mg Capsule] 667 mg PO MEALS 11/09/18 Doxercalciferol [Hectorol] 0.5 mcg IV MOWEFR@1000 11/09/18 Gabapentin [Neurontin 100 mg Capsule] 100 mg PO Q12 11/09/18 Lactulose [Cephulac 20 gm/30 ml Syrup UD Cup] 20 gm PO DAILY 11/09/18 Midodrine HCl 2.5 mg PO Q8 11/09/18 Mirtazapine [Remeron] 30 mg PO QHS 11/09/18 Ondansetron [Zofran Odt 4 mg Tablet] 4 mg PO Q6HP PRN 11/09/18 Oxycodone HCl [Oxy-Ir 5 mg Tablet] 10 mg PO Q8HP PRN 11/09/18 Allergies/Adverse Reactions: vancomycin [Vancomycin] Adverse Reaction (Unknown, Verified 11/08/18 23: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 Review of Systems All systems: reviewed and no additional remarkable complaints except as stated Review of Systems: Constitutional: ABSENT: chills, fatigue, headache(s), weight gain, weight loss; admits fever Eyes: ABSENT: visual disturbances Ears: ABSENT: hearing changes Cardiovascular: ABSENT: chest pain, dyspnea on exertion, edema, orthropnea, palpitations Respiratory: ABSENT: dyspnea, hemoptysis; admits cough Gastrointestinal: ABSENT: abdominal pain, constipation, diarrhea, hematemesis, hematochezia, nausea, vomiting Genitourinary: ABSENT: dysuria, hematuria Musculoskeletal: ABSENT: joint swelling Integumentary: ABSENT: rash, wounds Neurological: ABSENT: abnormal gait, abnormal speech, confusion, dizziness, focal weakness, numbness, syncope Psychiatric: ABSENT: anxiety, depression Endocrine: ABSENT: cold intolerance, heat intolerance, polydipsia, polyuria Hematologic/Lymphatic: ABSENT: easy bleeding, easy bruising, lymphadenopathy Physical Exam Vital Signs: Temp Pulse Resp BP Pulse Ox 98.2 F 60 17 92/53 L 91 L 11/10/18 02:59 11/10/18 03:05 11/10/18 02:59 11/10/18 03:05 11/10/18 02:59 Intake & Output 11/09/18 11/10/18 11/11/18 06:59 06:59 06:59 Intake Total 200 600 Output Total 0 Balance 200 600 Weight 68.039 kg 76.5 kg Vitals during dialysis treatment: Blood pressure 135/59, heart rate of 63, respiratory rate of 18, blood flow rate of 450 mL/min, dialysate flow rate of 800 mL/min. Exam: General appearance: No acute distress, cooperative, well-developed, well- nourished Head exam: PRESENT: atraumatic, normocephalic Eye exam: PRESENT: Conjunctiva [place], EOMI, PERRLA. ABSENT: conjunctival inj ection, scleral icterus Mouth exam: PRESENT: moist, neck supple, tongue midline Neck exam: PRESENT: full ROM. ABSENT: carotid bruit, JVD, lymphadenopathy, thyromegaly Respiratory exam: PRESENT: Diminished to auscultation bilaterally. Positive bibasilar crackles ABSENT: rhonchi, stridor, wheezes Cardiovascular exam: PRESENT: RRR, +S1, +S2. ABSENT: systolic murmur Pulses: PRESENT: normal radial pulses, normal dorsalis pedis pulses GI/Abdominal exam: PRESENT: normal bowel sounds, soft. ABSENT: guarding, mass, tenderness Rectal exam: Deferred Extremities exam: PRESENT: full ROM. Necrotic nailbed on left middle finger, right AKA ABSENT: calf tenderness, pedal edema Musculoskeletal: PRESENT: full ROM. ABSENT: deformity Neurological exam: PRESENT: alert, Awake, Oriented to person, Oriented to place, Oriented to time, reflexes normal, CN II-XII grossly intact. ABSENT: motor sensory deficit Psychiatric exam: PRESENT: appropriate affect, normal mood. ABSENT: homicidal ideation, suicidal ideation Skin exam: PRESENT: intact, dry, warm. ABSENT: rash Results Laboratory Results: 11/10/18 05:08 11/10/18 05:08 11/10/18 11/10/18 05:08 05:08 WBC 5.9 RBC 3.30 L Hgb 9.7 L Hct 30.9 L MCV 94 MCH 29.2 MCHC 31.2 L RDW 22.5 H Plt Count 212 Seg Neutrophils % Not Reportable Lymphocytes % Not Reportable Monocytes % Not Reportable Eosinophils % Not Reportable Basophils % Not Reportable Absolute Neutrophils Not Reportable Absolute Lymphocytes Not Reportable Absolute Monocytes Not Reportable Absolute Eosinophils Not Reportable Absolute Basophils Not Reportable Sodium 139.3 Potassium 5.3 H Chloride 99 Carbon Dioxide 27 Anion Gap 13 BUN 42 H Creatinine 7.53 H Est GFR ( Amer) 9 L Est GFR (Non-Af Amer) 7 L Glucose 110 Calcium 9.1 11/08/18 11/08/18 22:40 22:40 Creatine Kinase 33 L CK-MB (CK-2) 0.54 Troponin I 0.106 Impressions: Chest X-Ray 11/08/18 00:00 IMPRESSION: 1. Moderate right lower lobar pneumonia. Recommend CR/CT surveillance including at 7-12 weeks following initiation of any clinically warranted therapy. 2. Moderate to severe cardiac enlargement. Hand X-Ray 11/08/18 22:33 IMPRESSION: Soft tissue swelling about the third digit without underlying acute osseous anomaly. copyright 2011 [employer]- All Rights Reserved Knee X-Ray 11/08/18 22:33 IMPRESSION: 1. No radiographic evidence of osteomyelitis. If there is high clinical concern, consider MRI or bone scintigraphy for further evaluation. 2. Mild swelling at the stump site. Assessment & Plan - Diagnosis (1) End stage renal disease Is this a current diagnosis for this admission?: Yes Plan: We did dialysis today for 3 hours, using the patient's AV fistula, with 2 pota ssium bath, blood flow rate of 450 mL per minute, dialysate flow rate of 800 mL per minute, ultrafiltration 1 L, no heparin and Procrit with 5000 units during dialysis intravenously. Patient was monitored throughout dialysis treatment. We will continue hemodialysis support while here in the hospital. (2) Right lower lobe pneumonia Qualifiers: Pneumonia type: due to unspecified organism Qualified Code(s): J18.1 - Lobar pneumonia, unspecified organism Is this a current diagnosis for this admission?: Yes Plan: Currently on IV Zosyn. (3) Anemia in chronic kidney disease (CKD) Qualifiers: Chronic kidney disease stage: on chronic dialysis Qualified Code(s): N18.6 - End stage renal disease; D63.1 - Anemia in chronic kidney disease; D63.1 - Anemia in chronic kidney disease; Z99.2 - Dependence on renal dialysis; Z99.2 - Dependence on renal dialysis; Z99.2 - Dependence on renal dialysis; Z99.2 - D ependence on renal dialysis Is this a current diagnosis for this admission?: Yes Plan: Procrit to be given during dialysis as needed. (4) CAD (coronary artery disease) Qualifiers: Coronary Disease-Associated Artery/Lesion type: unspecified vessel or lesion type [place] vs. transplanted heart: [place] heart Associated angina: with unstable angina Qualified Code(s): I25.110 - Atherosclerotic heart disease of [place] coronary artery with unstable angina pectoris Is this a current diagnosis for this admission?: Yes (5) Diabetes mellitus Qualifiers: Diabetes mellitus type: type 2 Chronic kidney disease stage: on chronic dialysis Is this a current diagnosis for this admission?: Yes (6) Hypertension Qualifiers: Hypertension type: unspecified Qualified Code(s): I10 - Essential (primary) hypertension Is this a current diagnosis for this admission?: Yes - Notes Notes: Thank you very much for this consultation. We will continue to supervise hemo dialysis while here in the hospital. - Time Time Spent: 50 to 70 Minutes
[2018-11-11] MEDS: PIPERACILLIN SODIUM/TAZOBACTAM 4.5 GM in NORMAL SALINE 100 ML IV SCH ×4 (02:19→21:11)
[2018-11-11] MEDS: CALCIUM ACETATE 667 MG CAPSULE PO SCH ×3 (07:40→17:20)
[2018-11-11] MEDS: INSULIN LISPRO 100 UNIT/ML 3 ML VIAL SUBCUT SCH ×4 (07:41→22:05)
[2018-11-11] MEDS: AMIODARONE HCL 200 MG TABLET PO SCH (10:36)
[2018-11-11] MEDS: GABAPENTIN 100 MG CAPSULE PO SCH ×2 (10:36→21:13)
[2018-11-11] MEDS: MIDODRINE HCL 5 MG TABLET PO SCH ×3 (10:36→17:21)
[2018-11-11] MEDS: LACTULOSE SYRUP 20 GM/30 ML UDCUP PO SCH (10:38)
--- NOTE | 2018-11-11 13:52 | PDOC PROGRESS REPORT ---
Subjective Progress Note for:: 11/11/18 Subjective:: Patient denied any chest pain or difficulty with breathing. Not very compliant with use of supplemental oxygen via nasal cannula. He remain on IV Zosyn coverage and pending right thoracentesis for pleural effusion. No fever or chills. No abdominal pain, nausea or vomiting. Reason For Visit: PNEUMONIA Physical Exam Vital Signs: Temp Pulse Resp BP Pulse Ox 97.9 F 62 14 153/63 H 93 11/11/18 11:54 11/11/18 11:54 11/11/18 11:54 11/11/18 11:54 11/11/18 11:54 Intake & Output 11/10/18 11/11/18 11/12/18 06:59 06:59 06:59 Intake Total 600 975 268 Output Total 0 1100 0 Balance 600 -125 268 Weight 76.5 kg 77.4 kg General appearance: PRESENT: no acute distress, well-developed, well-nourished Head exam: PRESENT: atraumatic, normocephalic Eye exam: PRESENT: conjunctiva pink. ABSENT: scleral icterus Ear exam: PRESENT: normal external ear exam Mouth exam: PRESENT: moist Respiratory exam: PRESENT: decreased breath sounds - at lung bases Cardiovascular exam: PRESENT: RRR. ABSENT: diastolic murmur, rubs, systolic murmur Vascular exam: ABSENT: pallor GI/Abdominal exam: PRESENT: normal bowel sounds, soft. ABSENT: distended, guarding, mass, organolmegaly, rebound, tenderness Extremities exam: PRESENT: other - s/p right BKA and multiple toe amputation left foot. Multiple fingers involvement woith vascular insufficnecy and chnages.. ABSENT: pedal edema Musculoskeletal exam: PRESENT: other - Right BKA stump, necrotic changes to distal phalanx of left middle finger, the 2nd left finger and right 4th finger erythema and swelling. Neurological exam: PRESENT: alert, awake, oriented to person, oriented to place, oriented to time, oriented to situation, CN II-XII grossly intact. ABSENT: motor sensory deficit Psychiatric exam: PRESENT: appropriate affect, normal mood. ABSENT: homicidal ideation, suicidal ideation Skin exam: PRESENT: dry, warm, other - necrotic changes to distal phalanx of left middle finger, the 2nd left finger and right 4th finger erythema and swelling. Results Laboratory Results: 11/10/18 05:08 11/10/18 05:08 11/08/18 11/08/18 22:40 22:40 Creatine Kinase 33 L CK-MB (CK-2) 0.54 Troponin I 0.106 Impressions: Chest X-Ray 11/08/18 00:00 IMPRESSION: 1. Moderate right lower lobar pneumonia. Recommend CR/CT surveillance including at 7-12 weeks following initiation of any clinically warranted therapy. 2. Moderate to severe cardiac enlargement. Hand X-Ray 11/08/18 22:33 IMPRESSION: Soft tissue swelling about the third digit without underlying acute osseous anomaly. copyright 2010 [employer]- All Rights Reserved Knee X-Ray 11/08/18 22:33 IMPRESSION: 1. No radiographic evidence of osteomyelitis. If there is high clinical concern, consider MRI or bone scintigraphy for further evaluation. 2. Mild swelling at the stump site. Assessment & Plan - Diagnosis (1) Right lower lobe pneumonia Qualifiers: Pneumonia type: due to unspecified organism Qualified Code(s): J18.1 - Lobar pneumonia, unspecified organism Is this a current diagnosis for this admission?: Yes Plan: Continue IV Zosyn coverage. Follow up on thoracentesis schedule for 11/13/18. (2) Chronic atrial fibrillation Is this a current diagnosis for this admission?: Yes Plan: Continue current medication management. (3) Diabetes mellitus Qualifiers: Diabetes mellitus type: type 2 Chronic kidney disease stage: on chronic dialysis Is this a current diagnosis for this admission?: Yes Plan: Continue current medication management. (4) CKD (chronic kidney disease) stage V requiring chronic dialysis Is this a current diagnosis for this admission?: Yes Plan: Continue current medication management. - Time Time Spent with patient: 25-34 minutes Medications reviewed and adjusted accordingly: Yes Anticipated discharge: Home with Homehealth, SNF Within: Other - Inpatient Certification Based on my medical assessment, after consideration of the patient's comorbidities, presenting symptoms, or acuity I expect that the services needed warrant INPATIENT care.: Yes I certify that my determination is in accordance with my understanding of Medicare's requirements for reasonable and necessary INPATIENT services [42 CFR 412.3e].: Yes Medical Necessity: Significant Comorbidiites Make Outpatient Treatment Too Risky, Need Close Monitoring Due to Risk of Patient Decompensation, Need For IV Fluids, Need for Pain Control, Need for IV Antibiotics, Risk of Complication if Not Cared For in Hospital, Risk of Diagnosis Which Will Require Inpatient Eval/Care/Monitoring Post Hospital Care: D/C or Transfer Summary - Plan Summary Plan Summary: Continue current medication management.
[2018-11-11] MEDS: MIRTAZAPINE 15 MG TABLET PO SCH (21:12)
[2018-11-11] MEDS: ATORVASTATIN CALCIUM 40 MG TABLET PO SCH (21:13)
[2018-11-11] MEDS: OXYCODONE HCL IR 5 MG TABLET PO PRN (22:05)
[2018-11-12] MEDS: PIPERACILLIN SODIUM/TAZOBACTAM 4.5 GM in NORMAL SALINE 100 ML IV SCH ×4 (02:49→20:59)
[2018-11-12] MEDS: CALCIUM ACETATE 667 MG CAPSULE PO SCH ×3 (08:35→17:20)
[2018-11-12] MEDS: INSULIN LISPRO 100 UNIT/ML 3 ML VIAL SUBCUT SCH ×4 (08:38→22:28)
[2018-11-12] MEDS: AMIODARONE HCL 200 MG TABLET PO SCH (09:40)
[2018-11-12] MEDS: GABAPENTIN 100 MG CAPSULE PO SCH ×2 (09:40→21:43)
[2018-11-12] MEDS: MIDODRINE HCL 5 MG TABLET PO SCH ×3 (09:40→17:18)
[2018-11-12] MEDS: OXYCODONE HCL IR 5 MG TABLET PO PRN ×2 (09:42→17:50)
--- NOTE | 2018-11-12 15:33 | PDOC PROGRESS REPORT ---
Subjective Progress Note for:: 11/12/18 Subjective:: He denied any fever or chills. He reported discharge from his infected fingers lesion. No chest pain or difficulty with breathing. I discussed case with orthopedic surgeon and spouse at bedside today. Reason For Visit: PNEUMONIA Physical Exam Vital Signs: Temp Pulse Resp BP Pulse Ox 97.9 F 56 L 16 121/65 100 11/12/18 11:00 11/12/18 14:00 11/12/18 11:00 11/12/18 11:00 11/12/18 11:00 Intake & Output 11/11/18 11/12/18 11/13/18 06:59 06:59 06:59 Intake Total 975 708 200 Output Total 1100 0 Balance -125 708 200 Weight 77.4 kg 77.2 kg Physical Exam: General appearance: PRESENT: no acute distress, well-developed, well-nourished Head exam: PRESENT: atraumatic, normocephalic Eye exam: PRESENT: conjunctiva pink. ABSENT: pallor, scleral icterus Ear exam: PRESENT: normal external ear exam Mouth exam: PRESENT: moist Respiratory exam: PRESENT: decreased breath sounds - at lung bases Cardiovascular exam: PRESENT: RRR. ABSENT: diastolic murmur, rubs, systolic murmur GI/Abdominal exam: PRESENT: normal bowel sounds, soft. ABSENT: distended, guarding, mass, organomegaly, rebound, tenderness Extremities exam: PRESENT: other - s/p right BKA and multiple toe amputation left foot. Multiple fingers involvement with vascular insufficiency and changes.. ABSENT: pedal edema Musculoskeletal exam: PRESENT: other - Right BKA stump, necrotic changes to distal phalanx of left middle finger, the 2nd left finger and right 4th finger erythema and swelling. Neurological exam: PRESENT: alert, awake, oriented to person, oriented to place, oriented to time, oriented to situation, CN II-XII grossly intact. ABSENT: motor sensory deficit Psychiatric exam: PRESENT: appropriate affect, normal mood. ABSENT: homicidal ideation, suicidal ideation Skin exam: PRESENT: dry, warm, other - necrotic changes to distal phalanx of left middle finger, the 2nd left finger and right 4th finger erythema and swelling. Results Laboratory Results: 11/10/18 05:08 11/10/18 05:08 11/08/18 11/08/18 22:40 22:40 Creatine Kinase 33 L CK-MB (CK-2) 0.54 Troponin I 0.106 Impressions: Chest X-Ray 11/08/18 00:00 IMPRESSION: 1. Moderate right lower lobar pneumonia. Recommend CR/CT surveillance including at 7-12 weeks following initiation of any clinically warranted therapy. 2. Moderate to severe cardiac enlargement. Hand X-Ray 11/08/18 22:33 IMPRESSION: Soft tissue swelling about the third digit without underlying acute osseous anomaly. copyright 2010 [employer]- All Rights Reserved Knee X-Ray 11/08/18 22:33 IMPRESSION: 1. No radiographic evidence of osteomyelitis. If there is high clinical concern, consider MRI or bone scintigraphy for further evaluation. 2. Mild swelling at the stump site. Assessment & Plan - Diagnosis (1) Right lower lobe pneumonia Qualifiers: Pneumonia type: due to unspecified organism Qualified Code(s): J18.1 - Lobar pneumonia, unspecified organism Is this a current diagnosis for this admission?: Yes (2) Chronic atrial fibrillation Is this a current diagnosis for this admission?: Yes (3) Diabetes mellitus Qualifiers: Diabetes mellitus type: type 2 Chronic kidney disease stage: on chronic dialysis Is this a current diagnosis for this admission?: Yes (4) CKD (chronic kidney disease) stage V requiring chronic dialysis Is this a current diagnosis for this admission?: Yes - Time Time Spent with patient: 25-34 minutes Medications reviewed and adjusted accordingly: Yes Anticipated discharge: Home with Homehealth Within: Other - Inpatient Certification Based on my medical assessment, after consideration of the patient's comorbidities, presenting symptoms, or acuity I expect that the services needed warrant INPATIENT care.: Yes I certify that my determination is in accordance with my understanding of Medicare's requirements for reasonable and necessary INPATIENT services [42 CFR 412.3e].: Yes Medical Necessity: Significant Comorbidiites Make Outpatient Treatment Too Risky, Need Close Monitoring Due to Risk of Patient Decompensation, Need For IV Fluids, Need For Continuous Telemetry Monitoring, Need for IV Antibiotics, Need for Surgery, Risk of Complication if Not Cared For in Hospital, Risk of Diagnosis Which Will Require Inpatient Eval/Care/Monitoring Post Hospital Care: D/C Assistant Chief Nursing Officer Documentation - Plan Summary Plan Summary: Continue IV Zosyn coverage. Leave fingers to air and allow patient to wash as needed with soap and water. Lesion review will be done in the next couple of days by orthopedic team for possible amputation if there is no improvement.
[2018-11-12] MEDS: LACTULOSE SYRUP 20 GM/30 ML UDCUP PO SCH (17:23)
[2018-11-12] MEDS: MIRTAZAPINE 15 MG TABLET PO SCH (21:43)
[2018-11-12] MEDS: ATORVASTATIN CALCIUM 40 MG TABLET PO SCH (21:44)
[2018-11-13] MEDS: PIPERACILLIN SODIUM/TAZOBACTAM 4.5 GM in NORMAL SALINE 100 ML IV SCH ×4 (02:38→22:00)
[2018-11-13] MEDS ORDERED: EPOETIN ALFA INJ 20000 UNIT/1 ML VIAL (RENAL) IV PRN (05:00)
[2018-11-13 06:09] LABS: HEMATOCRIT 31.9 % (37.9-51.0); MEAN CORPUSCULAR HEMOGLOBIN 29.3 pg (27.0-33.4); MEAN CORPUSCULAR HGB CONC 31.4 g/dL (32.0-36.0); MEAN CORPUSCULAR VOLUME 93 fl (80-97); PLATELET COUNT 220 10^3/uL (150-450); RED BLOOD COUNT 3.42 10^6/uL (4.35-5.55); RED CELL DISTRIBUTION WIDTH 22.3 % (11.5-14.0)
[2018-11-13 06:31] LABS: ANION GAP 19 (5-19); BLOOD UREA NITROGEN 39 mg/dL (7-20); CALCIUM 9.2 mg/dL (8.4-10.2); CARBON DIOXIDE 27 mmol/L (22-30); CHLORIDE 95 mmol/L (98-107); GLUCOSE 113 mg/dL (75-110); POTASSIUM 5.1 mmol/L (3.6-5.0); SODIUM 141.1 mmol/L (137-145)
[2018-11-13] MEDS ORDERED: EPOETIN ALFA 10,000 UNIT in SYRINGE, DISPOSABLE, 1 EACH IV PRN (07:12)
[2018-11-13 07:27] LABS: ABSOLUTE LYMPHOCYTES# (MANUAL) 1.5 10^3/uL (0.5-4.7); ABSOLUTE MONOCYTES # (MANUAL) 0.6 10^3/uL (0.1-1.4); ABSOLUTE NEUTROPHILS# (MANUAL) 2.2 10^3/uL (1.7-8.2); EOSINOPHILS % (MANUAL) 12 % (0-6); LYMPHOCYTES % (MANUAL) 29 % (13-45); MONOCYTES % (MANUAL) 12 % (3-13); SEGMENTED NEUTROPHILS % (MAN) 43 % (42-78); TOTAL CELLS COUNTED 100
[2018-11-13 07:28] LABS: PLATELET COMMENT ADEQUATE
[2018-11-13 07:30] LABS: ANISOCYTOSIS 1+; HYPOCHROMASIA 1+; OVALOCYTES 1+
[2018-11-13 07:32] LABS: BASOPHILS % (MANUAL) 4 % (0-2)
--- NOTE | 2018-11-13 11:23 | PDOC PROGRESS REPORT ---
Subjective Progress Note for:: 11/13/18 Reason For Visit: Patient seen this morning. He is undergoing dialysis without any issues. He feels weak. No severe pain. Patient denies history of chest pain or shortness of breath. No history of any fever or chills. Labs and medications are reviewed. Dialysis orders were reviewed with the treating dialysis nurse. Physical Exam Vital Signs: Temp Pulse Resp BP Pulse Ox 98.6 F 57 L 18 155/56 H 96 11/13/18 03:34 11/13/18 03:34 11/13/18 03:34 11/13/18 03:34 11/13/18 03:34 Intake & Output 11/12/18 11/13/18 11/14/18 06:59 06:59 06:59 Intake Total 708 500 Output Total 0 Balance 708 500 Weight 77.2 kg 80.8 kg General appearance: PRESENT: no acute distress Respiratory exam: PRESENT: clear to auscultation john, decreased breath sounds. ABSENT: crackles Cardiovascular exam: PRESENT: +S1, +S2 GI/Abdominal exam: PRESENT: normal bowel sounds, soft. ABSENT: organomegaly, tenderness Extremities exam: PRESENT: pedal edema Neurological exam: PRESENT: awake, oriented to person, oriented to place Psychiatric exam: PRESENT: appropriate affect Results Laboratory Results: 11/13/18 05:09 11/13/18 05:09 11/13/18 11/13/18 05:09 05:09 WBC 5.0 RBC 3.42 L Hgb 10.0 L Hct 31.9 L MCV 93 MCH 29.3 MCHC 31.4 L RDW 22.3 H Plt Count 220 Seg Neutrophils % Not Reportable Lymphocytes % Not Reportable Monocytes % Not Reportable Eosinophils % Not Reportable Basophils % Not Reportable Absolute Neutrophils Not Reportable Absolute Lymphocytes Not Reportable Absolute Monocytes Not Reportable Absolute Eosinophils Not Reportable Absolute Basophils Not Reportable Sodium 141.1 Potassium 5.1 H Chloride 95 L Carbon Dioxide 27 Anion Gap 19 BUN 39 H Creatinine 8.47 H Est GFR ( Amer) 8 L Est GFR (Non-Af Amer) 6 L Glucose 113 H Calcium 9.2 11/08/18 11/08/18 22:40 22:40 Creatine Kinase 33 L CK-MB (CK-2) 0.54 Troponin I 0.106 Impressions: Chest X-Ray 11/08/18 00:00 IMPRESSION: 1. Moderate right lower lobar pneumonia. Recommend CR/CT surveillance including at 7-12 weeks following initiation of any clinically warranted therapy. 2. Moderate to severe cardiac enlargement. Hand X-Ray 11/08/18 22:33 IMPRESSION: Soft tissue swelling about the third digit without underlying acute osseous anomaly. copyright 2010 [employer]- All Rights Reserved Knee X-Ray 11/08/18 22:33 IMPRESSION: 1. No radiographic evidence of osteomyelitis. If there is high clinical concern, consider MRI or bone scintigraphy for further evaluation. 2. Mild swelling at the stump site. Assessment & Plan - Diagnosis (1) End stage renal disease Is this a current diagnosis for this admission?: Yes Plan: Patient currently undergoing dialysis without any issues. Dialysis is being supervised to ensure safe and smooth procedure. Vital signs are stable. Plan to remove approximately 2 L as tolerated. Erythropoietin has been ordered. Dialysis orders were reviewed with the treating dialysis nurse. (2) Right lower lobe pneumonia Qualifiers: Pneumonia type: due to unspecified organism Qualified Code(s): J18.1 - Lobar pneumonia, unspecified organism Is this a current diagnosis for this admission?: Yes Plan: On antibiotics and improving. (3) Chronic atrial fibrillation Is this a current diagnosis for this admission?: Yes Plan: Rate controlled. (4) Anemia in chronic kidney disease (CKD) Qualifiers: Chronic kidney disease stage: on chronic dialysis Qualified Code(s): N18.6 - End stage renal disease; D63.1 - Anemia in chronic kidney disease; D63.1 - Anemia in chronic kidney disease; Z99.2 - Dependence on renal dialysis; Z99.2 - Dependence on renal dialysis; Z99.2 - Dependence on renal dialysis; Z99.2 - Depe ndence on renal dialysis Is this a current diagnosis for this admission?: Yes Plan: Will adjust erythropoietin. 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
[2018-11-13] MEDS: MIDODRINE HCL 5 MG TABLET PO SCH ×3 (12:21→19:08)
[2018-11-13] MEDS: CALCIUM ACETATE 667 MG CAPSULE PO SCH ×3 (12:22→16:29)
[2018-11-13] MEDS: AMIODARONE HCL 200 MG TABLET PO SCH (12:22)
[2018-11-13] MEDS: GABAPENTIN 100 MG CAPSULE PO SCH ×4 (12:22→22:44)
[2018-11-13] MEDS: LACTULOSE SYRUP 20 GM/30 ML UDCUP PO SCH (12:22)
[2018-11-13] MEDS: INSULIN LISPRO 100 UNIT/ML 3 ML VIAL SUBCUT SCH ×3 (12:34→22:44)
[2018-11-13 13:44] LABS: PATH REVIEW PATHOLOGIST REVIEWED
--- NOTE | 2018-11-13 14:42 | RADIOLOGY REPORT (SQ) ---
EXAM DESCRIPTION: U/S CHEST COMPLETED DATE/TIME: 11/13/2018 2:32 pm REASON FOR STUDY: PLEURAL EFFUSION COMPARISON: None. TECHNIQUE: Sonographic images of the right and left chest acquired to evaluate for possible pleural effusions. LIMITATIONS: None. FINDINGS: Tiny right pleural effusion present. No left pleural effusion. No abnormal sonographic f indings. IMPRESSION: TINY RIGHT PLEURAL EFFUSION PRESENT. THORACENTESIS NOT PERFORMED. TECHNICAL DOCUMENTATION: JOB ID: [id number] [employer]- All Rights Reserved Reading location - IP/workstation name: [email or web address]
[2018-11-13] MEDS: OXYCODONE HCL IR 5 MG TABLET PO PRN (16:29)
--- NOTE | 2018-11-13 17:05 | PDOC PROGRESS REPORT ---
Subjective Progress Note for:: 11/13/18 Subjective:: Patient seen by the bedside, he had dialysis today Reason For Visit: PNEUMONIA Physical Exam Vital Signs: Temp Pulse Resp BP Pulse Ox 98.1 F 63 17 172/63 H 86 L 11/13/18 16:24 11/13/18 16:24 11/13/18 16:24 11/13/18 16:24 11/13/18 16:24 Intake & Output 11/12/18 11/13/18 11/14/18 06:59 06:59 06:59 Intake Total 708 500 100 Output Total 0 2000 Balance 708 500 -1900 Weight 77.2 kg 80.8 kg General appearance: PRESENT: no acute distress Eye exam: PRESENT: PERRLA Respiratory exam: PRESENT: symmetrical Cardiovascular exam: PRESENT: +S1, +S2 GI/Abdominal exam: PRESENT: soft Neurological exam: PRESENT: alert Results Laboratory Results: 11/13/18 05:09 11/13/18 05:09 11/13/18 11/13/18 05:09 05:09 WBC 5.0 RBC 3.42 L Hgb 10.0 L Hct 31.9 L MCV 93 MCH 29.3 MCHC 31.4 L RDW 22.3 H Plt Count 220 Seg Neutrophils % Not Reportable Lymphocytes % Not Reportable Monocytes % Not Reportable Eosinophils % Not Reportable Basophils % Not Reportable Absolute Neutrophils Not Reportable Absolute Lymphocytes Not Reportable Absolute Monocytes Not Reportable Absolute Eosinophils Not Reportable Absolute Basophils Not Reportable Sodium 141.1 Potassium 5.1 H Chloride 95 L Carbon Dioxide 27 Anion Gap 19 BUN 39 H Creatinine 8.47 H Est GFR ( Amer) 8 L Est GFR (Non-Af Amer) 6 L Glucose 113 H Calcium 9.2 11/08/18 11/08/18 22:40 22:40 Creatine Kinase 33 L CK-MB (CK-2) 0.54 Troponin I 0.106 Impressions: Chest X-Ray 11/08/18 00:00 IMPRESSION: 1. Moderate right lower lobar pneumonia. Recommend CR/CT surveillance including at 7-12 weeks following initiation of any clinically warranted therapy. 2. Moderate to severe cardiac enlargement. Hand X-Ray 11/08/18 22:33 IMPRESSION: Soft tissue swelling about the third digit without underlying acute osseous anomaly. copyright 2011 [employer]- All Rights Reserved Knee X-Ray 11/08/18 22:33 IMPRESSION: 1. No radiographic evidence of osteomyelitis. If there is high clinical concern, consider MRI or bone scintigraphy for further evaluation. 2. Mild swelling at the stump site. Chest Ultrasound 11/13/18 00:00 IMPRESSION: TINY RIGHT PLEURAL EFFUSION PRESENT. THORACENTESIS NOT PERFORMED. Assessment & Plan - Diagnosis (1) Right lower lobe pneumonia Qualifiers: Pneumonia type: due to unspecified organism Qualified Code(s): J18.1 - Lobar pneumonia, unspecified organism Is this a current diagnosis for this admission?: Yes Plan: Continue IV antibiotic (2) End stage renal disease Is this a current diagnosis for this admission?: Yes (3) Chronic atrial fibrillation Is this a current diagnosis for this admission?: Yes (4) Type 2 diabetes mellitus Qualifiers: Diabetes mellitus halfway insulin use: with terminal manager use Diabetes mellitus complication status: with other specified complication Qualified Code(s): E11.69 - Type 2 diabetes mellitus with other specified complication; Z79.4 - custodial (current) use of insulin; Z79.4 - watermaster (current) use of insulin; Z79.4 - custodial (current) use of insulin; Z79.4 - watermaster (current) use of insulin Is this a current diagnosis for this admission?: Yes
[2018-11-13] MEDS: ACETAMINOPHEN 325 MG TABLET PO PRN (17:10)
[2018-11-13] MEDS: ATORVASTATIN CALCIUM 40 MG TABLET PO SCH (22:44)
[2018-11-14] MEDS: PIPERACILLIN SODIUM/TAZOBACTAM 4.5 GM in NORMAL SALINE 100 ML IV SCH ×4 (03:55→21:17)
[2018-11-14] MEDS: CALCIUM ACETATE 667 MG CAPSULE PO SCH ×3 (07:51→17:10)
[2018-11-14] MEDS: INSULIN LISPRO 100 UNIT/ML 3 ML VIAL SUBCUT SCH ×4 (07:51→22:18)
[2018-11-14] MEDS: OXYCODONE HCL IR 5 MG TABLET PO PRN ×2 (07:58→21:28)
[2018-11-14] MEDS: GABAPENTIN 100 MG CAPSULE PO SCH ×2 (09:39→21:17)
[2018-11-14] MEDS: MIDODRINE HCL 5 MG TABLET PO SCH ×3 (09:39→17:10)
[2018-11-14] MEDS: LACTULOSE SYRUP 20 GM/30 ML UDCUP PO SCH (09:40)
[2018-11-14] MEDS: AMIODARONE HCL 200 MG TABLET PO SCH (09:40)
--- NOTE | 2018-11-14 20:58 | PDOC PROGRESS REPORT ---
Subjective Progress Note for:: 11/14/18 Subjective:: Patient was seen by the bedside admitted for pneumonia management Reason For Visit: PNEUMONIA Physical Exam Vital Signs: Temp Pulse Resp BP Pulse Ox 98.0 F 61 18 155/72 H 90 L 11/14/18 16:03 11/14/18 18:50 11/14/18 16:03 11/14/18 16:03 11/14/18 16:03 Intake & Output 11/13/18 11/14/18 11/15/18 06:59 06:59 06:59 Intake Total 500 1030 740 Output Total 2000 Balance 500 -970 740 Weight 80.8 kg 80 kg General appearance: PRESENT: no acute distress Head exam: PRESENT: atraumatic, normocephalic Eye exam: PRESENT: conjunctiva pink, EOMI, PERRLA Ear exam: PRESENT: normal external ear exam Mouth exam: PRESENT: moist, tongue midline Neck exam: PRESENT: full ROM Respiratory exam: PRESENT: clear to auscultation john Cardiovascular exam: PRESENT: RRR, +S1, +S2 Pulses: PRESENT: normal dorsalis pedis pul, +2 pedal pulses bilateral Vascular exam: PRESENT: normal capillary refill GI/Abdominal exam: PRESENT: normal bowel sounds, soft Rectal exam: PRESENT: deferred Neurological exam: PRESENT: alert, CN II-XII grossly intact Psychiatric exam: PRESENT: appropriate affect, normal mood Skin exam: PRESENT: dry, intact, warm Results Laboratory Results: 11/13/18 05:09 11/13/18 05:09 11/08/18 23:41 Blood Blood Culture - Final NO GROWTH IN 5 DAYS 11/08/18 22:40 Blood Blood Culture - Final NO GROWTH IN 5 DAYS 11/08/18 11/08/18 22:40 22:40 Creatine Kinase 33 L CK-MB (CK-2) 0.54 Troponin I 0.106 Impressions: Chest X-Ray 11/08/18 00:00 IMPRESSION: 1. Moderate right lower lobar pneumonia. Recommend CR/CT surveillance including at 7-12 weeks following initiation of any clinically warranted therapy. 2. Moderate to severe cardiac enlargement. Hand X-Ray 11/08/18 22:33 IMPRESSION: Soft tissue swelling about the third digit without underlying acute osseous anomaly. copyright 2011 [employer]- All Rights Reserved Knee X-Ray 11/08/18 22:33 IMPRESSION: 1. No radiographic evidence of osteomyelitis. If there is high clinical concern, consider MRI or bone scintigraphy for further evaluation. 2. Mild swelling at the stump site. Chest Ultrasound 11/13/18 00:00 IMPRESSION: TINY RIGHT PLEURAL EFFUSION PRESENT. THORACENTESIS NOT PERFORMED. Assessment & Plan - Diagnosis (1) Right lower lobe pneumonia Qualifiers: Pneumonia type: due to unspecified organism Qualified Code(s): J18.1 - Lobar pneumonia, unspecified organism Is this a current diagnosis for this admission?: Yes Plan: Continue IV antibiotic (2) End stage renal disease Is this a current diagnosis for this admission?: Yes (3) Chronic atrial fibrillation Is this a current diagnosis for this admission?: Yes (4) Type 2 diabetes mellitus Qualifiers: Diabetes mellitus technician terminal and repeater insulin use: with skilled nursing use Diabetes mellitus complication status: with other specified complication Qualified Code(s): E11.69 - Type 2 diabetes mellitus with other specified complication; Z79.4 - exterminator termite (current) use of insulin; Z79.4 - exterminator termite (current) use of insulin; Z79.4 - [facility] (current) use of insulin; Z79.4 - [facility] (current) use of insulin Is this a current diagnosis for this admission?: Yes
[2018-11-14] MEDS: ATORVASTATIN CALCIUM 40 MG TABLET PO SCH (21:17)
[2018-11-15] MEDS: PIPERACILLIN SODIUM/TAZOBACTAM 4.5 GM in NORMAL SALINE 100 ML IV SCH ×3 (03:37→14:02)
[2018-11-15] MEDS ORDERED: EPOETIN ALFA INJ 20000 UNIT/1 ML VIAL (RENAL) IV PRN (05:00)
[2018-11-15] MEDS ORDERED: EPOETIN ALFA 10,000 UNIT in SYRINGE, DISPOSABLE, 1 EACH IV PRN (05:00)
[2018-11-15 05:07] LABS: HEMATOCRIT 30.1 % (37.9-51.0); HEMOGLOBIN 9.4 g/dL (13.5-17.0); MEAN CORPUSCULAR HEMOGLOBIN 29.1 pg (27.0-33.4); MEAN CORPUSCULAR HGB CONC 31.3 g/dL (32.0-36.0); MEAN CORPUSCULAR VOLUME 93 fl (80-97); PLATELET COUNT 171 10^3/uL (150-450); RED BLOOD COUNT 3.24 10^6/uL (4.35-5.55); RED CELL DISTRIBUTION WIDTH 22.9 % (11.5-14.0); WHITE BLOOD COUNT 4.8 10^3/uL (4.0-10.5)
[2018-11-15 05:31] LABS: ANION GAP 16 (5-19); BLOOD UREA NITROGEN 31 mg/dL (7-20); CARBON DIOXIDE 27 mmol/L (22-30); CHLORIDE 97 mmol/L (98-107); POTASSIUM 4.5 mmol/L (3.6-5.0); SODIUM 139.9 mmol/L (137-145)
[2018-11-15 05:36] LABS: GLUCOSE 67 mg/dL (75-110)
[2018-11-15] MEDS: INSULIN LISPRO 100 UNIT/ML 3 ML VIAL SUBCUT SCH ×3 (07:53→16:44)
[2018-11-15] MEDS: CALCIUM ACETATE 667 MG CAPSULE PO SCH ×3 (07:54→16:46)
[2018-11-15] MEDS: LACTULOSE SYRUP 20 GM/30 ML UDCUP PO SCH (11:24)
[2018-11-15] MEDS: MIDODRINE HCL 5 MG TABLET PO SCH ×3 (12:00→17:16)
[2018-11-15] MEDS: AMIODARONE HCL 200 MG TABLET PO SCH (12:09)
[2018-11-15] MEDS: GABAPENTIN 100 MG CAPSULE PO SCH (12:09)
--- NOTE | 2018-11-15 15:40 | PDOC TRANSFER SUMMARY ---
General - Admit/Disc Date/PCP Admission Date/Primary Care Provider: 11/09/18 00:53 VONDA JIMENEZ MD Discharge Date: 11/15/18 - Discharge Diagnosis (1) Right lower lobe pneumonia Is this a current diagnosis for this admission?: Yes (2) End stage renal disease Is this a current diagnosis for this admission?: Yes (3) Chronic atrial fibrillation Is this a current diagnosis for this admission?: Yes (4) Type 2 diabetes mellitus Is this a current diagnosis for this admission?: Yes (5) Cellulitis and abscess of finger, unspecified Is this a current diagnosis for this admission?: Yes (6) Calciphylaxis cutis Is this a current diagnosis for this admission?: Yes - Additional Information Discharge Diet: Diabetic Discharge Activity: Activity As Tolerated Prescriptions: Oxycodone HCl [Oxy-Ir 5 mg Tablet] 10 mg PO Q8HP PRN #90 tablet PRN Reason: For Pain Clindamycin HCl 300 mg PO Q8H #15 capsule Sodium Thiosulfate 1 gm SUBCUT DAILY #100 powder Home Medications: Amino AC/Protein Hydr/Whey Pro [Prosource Plus Liquid Packet] 1 pkt PO BID 11/09/18 Amiodarone HCl [Cordarone 200 mg Tablet] 200 mg PO DAILY 11/09/18 Apixaban [Eliquis 2.5 mg Tablet] 2.5 mg PO BID 11/09/18 Atorvastatin Calcium [Lipitor 40 mg Tablet] 40 mg PO QHS 11/09/18 Doxercalciferol [Hectorol] 0.5 mcg IV MOWEFR@1000 11/09/18 Lactulose [Cephulac Syrup 20 gm/30 ml Udcup] 20 gm PO DAILY 11/09/18 Midodrine HCl 2.5 mg PO Q8 11/09/18 Mirtazapine [Remeron] 30 mg PO QHS 11/09/18 Ondansetron [Zofran Odt 4 mg Tablet] 4 mg PO Q6HP PRN 11/09/18 Calcium Acetate [Phoslo 667 mg Capsule] 667 mg PO MEALS capsule 11/15/18 Clindamycin HCl 300 mg PO Q8H #15 capsule 11/15/18 Oxycodone HCl [Oxy-Ir 5 mg Tablet] 10 mg PO Q8HP PRN #90 tablet 11/15/18 Sodium Thiosulfate 1 gm SUBCUT DAILY #100 powder 11/15/18 History of Present Illness Admission Date/PCP: 11/09/18 00:53 VONDA JIMENEZ MD History of Present Illness: CHAPITO LESLIE is a 63 year old male,He has end-stage renal disease on maintenance hemodialysis, status post right below-knee amputation presently in the 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 undergoing rehabilitation he was transferred from the 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 to the emergency room for evaluation of low blood pressure and possible sepsis. The temperature recorded by EMS was 1-1.2 but when he arrived in the emergency room his temperature recorded was 103.1. A chest x-ray was done it demonstrated moderate opacity with possible effusion of the right lower hemithorax he has a moderate right lower lobe pneumonia. Hospital Course Hospital Course: Patient was admitted for the management of right lower lobe pneumonia, he was treated with IV antibiotic. He has end-stage renal disease on maintenance hemodialysis, he was seen by nephrology on this admission, he required hemodialysis sessions. He also complained of excessive shakiness, felt to be due to gabapentin, gabapentin was discontinued on this admission. He has ulcer at the tip of the middle finger of the left and with overlying eschar there is also superimposed cellulitis, many other fingers are involved suggesting this could be calciphylaxis the antibiotic regimen that was used for the IV antibiotic also help the cellulitis. He was treated with IV antibiotic, a broad-spectrum Zosyn, he has vancomycin allergy. He was seen by the surgeon, he felt that he may need amputation of the middle finger of the left hand but because the cellulitis improved with antibiotic, amputation was deferred Physical Exam Vital Signs: Temp Pulse Resp BP Pulse Ox 98.7 F 66 16 164/48 H 95 11/15/18 03:47 11/15/18 14:00 11/15/18 03:47 11/15/18 03:47 11/15/18 03:47 Intake & Output 11/14/18 11/15/18 11/16/18 06:59 06:59 06:59 Intake Total 1030 1580 340 Output Total 1999 2600 Balance -970 1580 -2260 Weight 80 kg 82.4 kg General appearance: PRESENT: no acute distress Eye exam: PRESENT: PERRLA Respiratory exam: PRESENT: clear to auscultation john Cardiovascular exam: PRESENT: +S1, +S2 GI/Abdominal exam: PRESENT: soft Extremities exam: PRESENT: other - There is ulcer at the tip of the middle finger of the left hand with an eschar, multiple other fingers are affected Neurological exam: PRESENT: alert Results Laboratory Results: 11/15/18 04:48 11/15/18 04:48 11/15/18 11/15/18 04:48 04:48 WBC 4.8 RBC 3.24 L Hgb 9.4 L Hct 30.1 L MCV 93 MCH 29.1 MCHC 31.3 L RDW 22.9 H Plt Count 171 Sodium 139.9 Potassium 4.5 Chloride 97 L Carbon Dioxide 27 Anion Gap 16 BUN 31 H Creatinine 7.72 H Est GFR ( Amer) 9 L Est GFR (Non-Af Amer) 7 L Glucose 67 L Calcium 9.0 11/08/18 11/08/18 22:40 22:40 Creatine Kinase 33 L CK-MB (CK-2) 0.54 Troponin I 0.106 Impressions: Chest X-Ray 11/08/18 00:00 IMPRESSION: 1. Moderate right lower lobar pneumonia. Recommend CR/CT surveillance including at 7-12 weeks following initiation of any clinically warranted therapy. 2. Moderate to severe cardiac enlargement. Hand X-Ray 11/08/18 22:33 IMPRESSION: Soft tissue swelling about the third digit without underlying acute osseous anomaly. copyright 2010 [employer]- All Rights Reserved Knee X-Ray 11/08/18 22:33 IMPRESSION: 1. No radiographic evidence of osteomyelitis. If there is high clinical concern, consider MRI or bone scintigraphy for further evaluation. 2. Mild swelling at the stump site. Chest Ultrasound 11/13/18 00:00 IMPRESSION: TINY RIGHT PLEURAL EFFUSION PRESENT. THORACENTESIS NOT PERFORMED. Transfer Plan - Time Spent with Patient Time spent with patient: Greater than 30 Minutes Qualifiers - * PATIENT BEING DISCHARGED WITH ANY OF THE FOLLOWING DIAGNOSIS: No VTE patient discharged on overlapping Therapy?: No Stroke Pt being discharged on Anti-thrombolytic therapy?: No Reason(s) for not prescribing Anti-thrombolytic therapy:: Tx not tolerated Stroke Pt being discharged on Anti-coagulation therapy?: No Reason(s) for not prescribing Anti-coagulation therapy:: Tx not tolerated Stroke Pt being discharged on Statins?: No Reason(s) for not prescribing Statins therapy:: Tx not tolerated MD Pt being discharged on Aspirin therapy?: No Reason(s) for not prescribing Aspirin therapy:: Tx not tolerated MD Pt being discharged on Statins?: No Reason(s) for not prescribing Statin therapy:: Tx not tolerated MD Pt discharged ACEI/ARBS?: No Acute Heart Failure - Is this a Heart Failure Patient?: No LVEF < 40%?: No- if no continue to question #3 3. Anticoagulant therapy for permanect/persistent/paraoxysmal Afib or Aflutter: N/A
--- NOTE | 2018-11-15 16:17 | Progress Note ---
Provider Note Provider Note: ID Telephone Consult Note Asked to review patient's chart by pharmacy regarding dose/duration of Zosyn for pneumonia. Pt has ESRD on HD. Zosyn 2.25 g IV q8h infused over 30 minutes would be appropriate if needed, but he has improved to the point of being ready for discharge to SNF today. Adolfo Verma MD [facility] Infectious Diseases pager [phone]
[2018-11-15 16:50] VITALS: BP 160/80
--- NOTE | 2018-11-15 17:19 | PDOC PROGRESS REPORT ---
Subjective Progress Note for:: 11/15/18 Reason For Visit: Patient seen on dialysis today. Undergoing dialysis without any issues. Denies any such chest pain or shortness of breath. No history of any fever, chills. Vital signs are stable. Dialysis orders were reviewed with the treating dialysis nurse. Labs and medications were reviewed. Physical Exam Vital Signs: Temp Pulse Resp BP Pulse Ox 98.6 F 53 L 17 160/80 H 88 L 11/15/18 15:20 11/15/18 15:20 11/15/18 15:20 11/15/18 15:20 11/15/18 15:20 Intake & Output 11/14/18 11/15/18 11/16/18 06:59 06:59 06:59 Intake Total 1030 1580 340 Output Total 2000 2600 Balance -970 1580 -2260 Weight 80 kg 82.4 kg General appearance: PRESENT: no acute distress Respiratory exam: PRESENT: clear to auscultation john. ABSENT: crackles Cardiovascular exam: PRESENT: +S1, +S2 GI/Abdominal exam: PRESENT: normal bowel sounds, soft. ABSENT: organomegaly, tenderness Extremities exam: PRESENT: pedal edema Neurological exam: PRESENT: alert, awake, oriented to person, oriented to place Psychiatric exam: PRESENT: appropriate affect Results Laboratory Results: 11/15/18 04:48 11/15/18 04:48 11/15/18 11/15/18 04:48 04:48 WBC 4.8 RBC 3.24 L Hgb 9.4 L Hct 30.1 L MCV 93 MCH 29.1 MCHC 31.3 L RDW 22.9 H Plt Count 171 Sodium 139.9 Potassium 4.5 Chloride 97 L Carbon Dioxide 27 Anion Gap 16 BUN 31 H Creatinine 7.72 H Est GFR ( Amer) 9 L Est GFR (Non-Af Amer) 7 L Glucose 67 L Calcium 9.0 11/08/18 11/08/18 22:40 22:40 Creatine Kinase 33 L CK-MB (CK-2) 0.54 Troponin I 0.106 Impressions: Chest X-Ray 11/08/18 00:00 IMPRESSION: 1. Moderate right lower lobar pneumonia. Recommend CR/CT surveillance including at 7-12 weeks following initiation of any clinically warranted therapy. 2. Moderate to severe cardiac enlargement. Hand X-Ray 11/08/18 22:33 IMPRESSION: Soft tissue swelling about the third digit without underlying acute osseous anomaly. copyright 2010 [employer]- All Rights Reserved Knee X-Ray 11/08/18 22:33 IMPRESSION: 1. No radiographic evidence of osteomyelitis. If there is high clinical concern, consider MRI or bone scintigraphy for further evaluation. 2. Mild swelling at the stump site. Chest Ultrasound 11/13/18 00:00 IMPRESSION: TINY RIGHT PLEURAL EFFUSION PRESENT. THORACENTESIS NOT PERFORMED. Assessment & Plan - Diagnosis (1) End stage renal disease Is this a current diagnosis for this admission?: Yes Plan: Patient currently undergoing dialysis without any issues. Dialysis is being supervised to ensure safe and smooth procedure. Vital signs are stable. Plan to remove approximately 2 L as tolerated. Erythropoietin has been ordered. Dialysis orders were reviewed with the treating dialysis nurse. (2) Right lower lobe pneumonia Qualifiers: Pneumonia type: due to unspecified organism Qualified Code(s): J18.1 - Lobar pneumonia, unspecified organism Is this a current diagnosis for this admission?: Yes Plan: On antibiotics and improving. (3) Chronic atrial fibrillation Is this a current diagnosis for this admission?: Yes Plan: Rate controlled. (4) Anemia in chronic kidney disease (CKD) Qualifiers: Chronic kidney disease stage: on chronic dialysis Qualified Code(s): N18.6 - End stage renal disease; D63.1 - Anemia in chronic kidney disease; D63.1 - Anemia in chronic kidney disease; Z99.2 - Dependence on renal dialysis; Z99.2 - Dependence on renal dialysis; Z99.2 - Dependence on renal dialysis; Z99.2 - Dependence on renal dialysis Is this a current diagnosis for this admission?: Yes Plan: Will adjust erythropoietin. 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: Diabetes mellitus [facility] insulin use: with enroute controller use Diabetes mellitus complication status: with other specified complication Qualified Code(s): E11.69 - Type 2 diabetes mellitus with other specified complication; Z79.4 - custodial (current) use of insulin; Z79.4 - shank stitcher (current) use of insulin; Z79.4 - shank stitcher (current) use of insulin; Z79.4 - shank stitcher (current) use of insulin Is this a current diagnosis for this admission?: Yes Plan: Long-standing and poorly controlled unfortunately.
[2018-11-15] MEDS: OXYCODONE HCL IR 5 MG TABLET PO PRN (17:50)
[2018-11-15] MEDS ORDERED: PIPERACILLIN SODIUM/TAZOBACTAM 2.25 GM in NORMAL SALINE 50 ML IV SCH (22:00)
== END 2018-11-15 19:48 | DRG 193 ==
LOC: ER 21:53 → EH 11-09 00:53 → 3S 11-09 15:29
PROVIDERS: ADMIT Internal Medicine; ATTEND Internal Medicine
PROC: 5A1D70Z Performance of Urinary Filtration, Intermittent, Less than 6 Hours Per Day (ICD-10-PCS; principal; 2018-11-10)
DX: J18.1 Lobar pneumonia, unspecified organism (principal); N18.6 End stage renal disease; I13.2 Hypertensive heart and chronic kidney disease with heart failure and with stage 5 chronic kidney disease, or end stage renal disease; I95.9 Hypotension, unspecified; I50.9 Heart failure, unspecified; E11.22 Type 2 diabetes mellitus with diabetic chronic kidney disease; I48.2 Chronic atrial fibrillation; K21.9 Gastro-esophageal reflux disease without esophagitis; L03.012 Cellulitis of left finger; D63.1 Anemia in chronic kidney disease; G47.33 Obstructive sleep apnea (adult) (pediatric); E83.59 Other disorders of calcium metabolism; Z99.2 Dependence on renal dialysis; Z89.511 Acquired absence of right leg below knee; Z95.1 Presence of aortocoronary bypass graft; Z79.01 Long term (current) use of anticoagulants; Z79.02 Long term (current) use of antithrombotics/antiplatelets; Z79.82 Long term (current) use of aspirin; Z79.899 Other long term (current) drug therapy
CPT/HCPCS: 36415; 71045; 76604; 80048; 80053; 82550; 82553; 82962; 83036; 83605; 83615; 84155; 84484; 85025; 85027; 85610; 85730; 87040; 93005; 93010; 96365; 96375; 99285; J0692; J1644; J1815; J2543; J3490; J7050; Q4081

== ENCOUNTER 2018-11-29 23:37 | Observation (INO) | payer OTHER, MEDICARE ==
--- NOTE | 2018-11-30 03:21 | RADIOLOGY REPORT (SQ) ---
EXAM DESCRIPTION: XR HAND 3 OR MORE VIEWS COMPLETED DATE/TME: 11/29/2018 23:55 CLINICAL HISTORY: 63 years, Male, PAIN COMPARISON: 11/08/2018 left hand NUMBER OF VIEWS: 3 TECHNIQUE: 3 view left hand LIMITATIONS: None. FINDINGS: Osteopenia. Extensive vascular calcifications. Soft tissue ulceration of the distal second digit. No underlying acute osseous abnormality. IMPRESSION: Soft tissue ulceration of the second digit. No acute osseous abnormality copyright 2010 [employer]- All Rights Reserved
[2018-11-30 03:24] LABS: HEMATOCRIT 34.4 % (37.9-51.0); HEMOGLOBIN 11.1 g/dL (13.5-17.0); MEAN CORPUSCULAR HEMOGLOBIN 29.6 pg (27.0-33.4); MEAN CORPUSCULAR HGB CONC 32.2 g/dL (32.0-36.0); MEAN CORPUSCULAR VOLUME 92 fl (80-97); PLATELET COUNT 211 10^3/uL (150-450); RED BLOOD COUNT 3.74 10^6/uL (4.35-5.55); WHITE BLOOD COUNT 4.6 10^3/uL (4.0-10.5)
[2018-11-30 03:42] LABS: ANION GAP 12 (5-19); BLOOD UREA NITROGEN 28 mg/dL (7-20); CALCIUM 8.8 mg/dL (8.4-10.2); CARBON DIOXIDE 29 mmol/L (22-30); CHLORIDE 98 mmol/L (98-107); GLUCOSE 113 mg/dL (75-110); POTASSIUM 5.1 mmol/L (3.6-5.0); SODIUM 139.1 mmol/L (137-145)
[2018-11-30 03:47] LABS: ABSOLUTE LYMPHOCYTES# (MANUAL) 1.4 10^3/uL (0.5-4.7); ABSOLUTE MONOCYTES # (MANUAL) 0.6 10^3/uL (0.1-1.4); BASOPHILS % (MANUAL) 2 % (0-2); EOSINOPHILS % (MANUAL) 17 % (0-6); LYMPHOCYTES % (MANUAL) 31 % (13-45); MONOCYTES % (MANUAL) 13 % (3-13); SEGMENTED NEUTROPHILS % (MAN) 37 % (42-78); TOTAL CELLS COUNTED 100
[2018-11-30 03:48] LABS: ANISOCYTOSIS 3+; OVALOCYTES 1+
[2018-11-30 03:49] LABS: PLATELET COMMENT ADEQUATE
[2018-11-30] MEDS ORDERED: PIPERACILLIN/TAZOBACTAM 3.375 GM VIAL IV ONE (04:14)
--- NOTE | 2018-11-30 04:19 | ER Document Report ---
ED General - General Chief Complaint: Finger Injury Stated Complaint: FINGER PAIN Time Seen by Provider: 11/30/18 02:35 Primary Care Provider: FEI ZULETA MD [Primary Care Provider] - Follow up as needed Notes: Patient is a pleasant 63-year-old male who presents with complaint of worsening pain and swelling to fingers of his left hand. Is also given some swelling and pain to the fingers of his right hand. He was admitted few weeks ago and treated for cellulitis of the hand. They did consider amputation but decided against it at that time. He says his fingers have worsened. She denies any fevers. No vomiting. He is currently on antibiotic but does not remember the name. He does have end-stage renal disease and is followed by Dr. Elizondo for his dialysis. He gets dialysis Tuesday. TRAVEL OUTSIDE OF THE [place] 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 Past Medical History - Social History Smoking Status: Unknown if Ever Smoked Frequency of alcohol use: None Drug Abuse: None Family History: Reviewed & Not Pertinent, CAD, Hypertension, Malignancy Patient has suicidal ideation: No Patient has homicidal ideation: No - Past Medical History Cardiac Medical History: Reports: Hx Atrial Fibrillation, Hx Congestive Heart Failure, Hx Coronary Artery Disease, Hx Heart Attack - x 3,triple bypass in october, Hx Hypertension, Hx Peripheral Vascular Disease Pulmonary Medical History: Denies: Hx Asthma, Hx Bronchitis, Hx COPD, Hx Pneumonia Neurological Medical History: Denies: Hx Cerebrovascular Accident, Hx Seizures Endocrine Medical History: Reports: Hx Diabetes Mellitus Type 1, Hx Diabetes Mellitus Type 2 Renal/ Medical History: Reports: Hx End Stage Renal Disease - Dialysis dependent, Hx Hemodialysis, Hx Renal Insufficiency. Denies: Hx Peritoneal Dialysis GI Medical History: Reports: Hx Gastroesophageal Reflux Disease. Denies: Hx Hepatitis, Hx Hiatal Hernia, Hx Ulcer Musculoskeletal Medical History: Denies Hx Arthritis Skin Medical History: Denies Hx Psoriasis Psychiatric Medical History: Reports: Hx Depression Traumatic Medical History: Denies: Hx Traumatic Brain Injury Infectious Medical History: Denies: Hx Hepatitis Past Surgical History: Reports: Hx Cardiac Catheterization, Hx Cardiac Surgery - triple bypass, Hx Coronary Artery Bypass Graft - X3 vessel on October 26, 2017, Hx Orthopedic Surgery - Right big toe amputation in 2015, left third and fourth toe amputation, Hx Vascular Surgery, Other - Cervical laminectomy in 2013; right AKA. Denies: Hx Open Heart Surgery, Hx Pacemaker - Immunizations Hx Diphtheria, Pertussis, Tetanus Vaccination: Yes Hx Pneumococcal Vaccination: 02/05/15 Review of Systems - Review of Systems Notes: My Normal Review Basic REVIEW OF SYSTEMS: CONSTITUTIONAL : Denies fever, chills, or sweats. Denies recent illness. EENT: Denies eye, ear, throat, or mouth pain or symptoms. Denies nasal or sinus congestion. CARDIOVASCULAR: Denies chest pain. RESPIRATORY: Denies cough, cold, or chest congestion. Denies shortness of breath, difficulty breathing, or wheezing. GASTROINTESTINAL: Denies abdominal pain. Denies nausea, vomiting, or diarrhea. MUSCULOSKELETAL: necrosis of the 2nd or third digitis on the left hand SKIN: Denies rash or skin lesions. NEUROLOGICAL: Denies altered mental status or loss of consciousness. Denies headache. Denies weakness or paralysis or loss of use of either side. Denies problems with gait or speech. Denies sensory or motor loss. ALL OTHER SYSTEMS REVIEWED AND NEGATIVE. Physical Exam - Vital signs Vitals: Temp Pulse Resp BP Pulse Ox 98.9 F 61 20 128/47 H 93 11/30/18 00:03 11/30/18 00:03 11/30/18 00:03 11/30/18 00:03 11/30/18 00:03 - Notes Notes: General Appearance: Well nourished, alert, cooperative, no acute distress, no obvious discomfort. well appearing Vitals: reviewed, See vital signs table. Head: no swelling or tenderness to the head Eyes: PERRL, EOMI, Conjuctiva clear Mouth: No decreasd moisture Lungs: No wheezing, No rales, No rhonci, No accessory muscle use, good air exchange bilaterally. Heart: Normal rate, Regular rythm, No murmur, no rub Abdomen: Normal BS, soft, No rigidity, No abdominal tenderness, No guarding, no rebound, no abdominal masses, no organomegaly Extremities: strength 5/5 in all extremities, good pulses in all extremities, patient has obvious necrosis of the second digit on left hand and also start to get necrosis of the third digit of left hand. Swelling extends down to almost the base of the digit in the left hand. Patient has a little bit of redness and swelling to few distal aspects of digits on the right hand. The remainder of the hand otherwise has good perfusion he has good radial and ulnar pulses on both sides. Skin: warm, dry, appropriate color, no rash Neuro: speech clear, oriented x 3, normal affect, responds appropriately to questions. Course - Re-evaluation Re-evalutation: 11/30/18 04:26 Patient unfortunately has what appears to be necrosis with possible dry gangrene of the distal aspect of the digits 2 and 3 on his hand. I suspect that this will continue to get worse until he is or potentially amputated. I did speak with his primary care physician, Dr. Gray, who agrees to admit the patient and I have put a consult to our orthopedics on-call in the system. Dictation of this chart was performed using voice recognition software; therefore, there may be some unintended grammatical errors. - Vital Signs Vital signs: Temp Pulse Resp BP Pulse Ox 98.9 F 61 20 128/47 H 93 11/30/18 00:03 11/30/18 00:03 11/30/18 00:03 11/30/18 00:03 11/30/18 00:03 - Laboratory Result Diagrams: 11/30/18 03:16 11/30/18 03:16 Laboratory results interpreted by me: 11/30/18 11/30/18 03:16 03:16 RBC 3.74 L Hgb 11.1 L Hct 34.4 L RDW 24.0 H Seg Neuts % (Manual) 37 L Eosinophils % (Manual) 17 H Absolute Eos (Manual) 0.8 H Potassium 5.1 H BUN 28 H Creatinine 6.44 H Est GFR ( Amer) 11 L Est GFR (Non-Af Amer) 9 L Glucose 113 H Discharge - Discharge Clinical Impression: End stage renal disease, Necrosis of finger Condition: Stable Disposition: ADMITTED INPATIENT Admitting Provider: [facility] Admitted: Medical Floor
[2018-11-30 05:17] LABS: INTERNATIONAL RATION (INR) 1.27
[2018-11-30 05:18] LABS: PARTIAL THROMBOPLASTIN TIME 42.7 SEC (23.5-35.8)
[2018-11-30 05:31] LABS: LIPASE 52.3 U/L (23-300)
[2018-11-30 05:44] LABS: CREATINE KINASE MB 1.25 ng/mL (<4.55)
[2018-11-30 05:48] LABS: FREE T4 (FREE THYROXINE) 1.41 ng/dL (0.78-2.19)
[2018-11-30 05:52] LABS: TROPONIN I 0.064 ng/mL
[2018-11-30] MEDS ORDERED: HEPARIN SOD (PORCINE) 5,000 UNIT/ML 1 ML SYRINGE SUBCUT SCH (06:00)
[2018-11-30 06:02] LABS: THYROID STIMULATING HORMONE 2.28 uIU/mL (0.47-4.68)
--- NOTE | 2018-11-30 07:33 | PDOC CONSULTATION ---
Consultation Consult Date: 11/30/18 Provider Consulted: OMARI AGUILERA Consult reason:: dry gangrene left 3rd finger History of Present Illness Admission Date/PCP: 11/30/18 04:48 FEI ZULETA MD History of Present Illness: CHAPITO LESLIE is a 63 year old male who is diabetic on Hemodialysis with A-V fistula on the left arm noted pains along left 3rd and 2nd fingers for the past month. Surgery is being consulted for this. Denies fever/chills. Able to have some function with his left hand. Past Medical History Cardiac Medical History: Reports: Atrial Fibrillation, Congestive Heart Failure, Coronary Artery Disease, Myocardial Infarction - x 3,triple bypass in october, Hypertension, Peripheral Vascular Disease Pulmonary Medical History: Denies: Asthma, Bronchitis, Chronic Obstructive Pulmonary Disease (COPD), Pneumonia Neurological Medical History: Denies: Seizures Endocrine Medical History: Reports: Diabetes Mellitus Type 1, Diabetes Mellitus Type 2 Renal/ Medical History: Reports: End Stage Renal Disease - Dialysis dependent GI Medical History: Reports: Gastroesophageal Reflux Disease Denies: Hepatitis, Hiatal Hernia Musculoskeltal Medical History: Denies: Arthritis Skin Medical History: Denies: Psoriasis Psychiatric Medical History: Reports: Depression Traumatic Medical History: Denies: Traumatic Brain Injury Hematology: Past Surgical History Past Surgical History: Reports: Cardiac Catheterization, Coronary Artery Bypass Graft - X3 vessel on October 26, 2017, Orthopedic Surgery - Right big toe amputation in 2014, left third and fourth toe amputation, Vascular Surgery, Other - Cervical laminectomy in 2012; right AKA Denies: Pacemaker Social History Smoking Status: Unknown if Ever Smoked Frequency of Alcohol Use: Rare Hx Recreational Drug Use: No Drugs: None Hx Prescription Drug Abuse: No - Advance Directive Resuscitation Status: Full Code Family History Family History: Reviewed & Not Pertinent, CAD, Hypertension, Malignancy Parental Family History Reviewed: Yes Children Family History Reviewed: No Medication/Allergy Home Medications: Acetaminophen [Tylenol 325 mg Tablet] 650 mg PO Q4HP PRN 11/30/18 Amiodarone HCl [Pacerone] 200 mg PO QAM 11/30/18 Apixaban [Eliquis 2.5 mg Tablet] 2.5 mg PO BID 11/30/18 Aspirin [Aspirin 81 mg Chewable Tablet] 81 mg PO QAM 11/30/18 Atorvastatin Calcium [Lipitor 40 mg Tablet] 40 mg PO QHS 11/30/18 Calcium Acetate [Phoslo 667 mg Capsule] 667 mg PO MEALS 11/30/18 Clopidogrel Bisulfate [Plavix 75 mg Tablet] 75 mg PO QAM 11/30/18 Doxercalciferol [Hectorol] 5 mcg IV MOWEFR 11/30/18 Gabapentin [Neurontin 100 mg Capsule] 100 mg PO Q12 11/30/18 Ibuprofen 200 mg PO Q8HP PRN 11/30/18 Lactulose [Constulose 10 gm/15 mL Oral Solution] 20 gm PO QAM 11/30/18 Midodrine HCl [Proamatine 5 mg Tablet] 2.5 mg PO TID MDD HOLD FOR SBP 130 11/30/18 Mirtazapine [Remeron] 30 mg PO QHS 11/30/18 Nitroglycerin [Nitrostat 0.4 mg (1/150 Gr) Tabs 25/Bottle] 0.4 mg SL Q5MP PRN 11/30/18 Ondansetron HCl [Zofran 4 mg Tablet] 4 mg PO Q6HP PRN 11/30/18 Oxycodone HCl [Oxycodone HCl 10 MG Tablet] 10 mg PO Q8HP PRN 11/30/18 Prostat 30 ml PO BID MDD STOP ON 12-24-18 11/30/18 Sennosides/Docusate 8.6-50 mg [Senna Plus Tablet] 1 tab PO BIDP PRN 11/30/18 Allergies/Adverse Reactions: vancomycin [Vancomycin] Adverse Reaction (Unknown, Verified 11/08/18 23: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 Review of Systems Constitutional: PRESENT: as per HPI Cardiovascular: PRESENT: other - no chest pains/cough Gastrointestinal: PRESENT: other - no pains Musculoskeletal: PRESENT: other - pains left 3rd and 4th fingers Physical Exam Vital Signs: Temp Pulse Resp BP Pulse Ox 98.2 F 58 L 18 122/42 L 93 11/30/18 05:16 11/30/18 05:16 11/30/18 05:16 11/30/18 05:16 11/30/18 00:03 Intake & Output 11/29/18 11/30/18 12/01/18 06:59 06:59 06:59 Weight 77.7 kg General appearance: PRESENT: mild distress Head exam: PRESENT: atraumatic Eye exam: PRESENT: conjunctiva pink Mouth exam: PRESENT: moist Neck exam: PRESENT: full ROM Respiratory exam: PRESENT: clear to auscultation john Cardiovascular exam: PRESENT: RRR Pulses: PRESENT: other - unable to palpate left radial and ulnar arteries despite manually occluding left arm fistula Hand and rest of fingers warm and able to flex well Left 3rd finger tip with dry gangrene and cool, 4th finfer tip cool. Base of fingers warm GI/Abdominal exam: PRESENT: soft Rectal exam: PRESENT: deferred Extremities exam: PRESENT: full ROM Musculoskeletal exam: PRESENT: ambulatory Neurological exam: PRESENT: alert, oriented to person, oriented to place, oriented to time, oriented to situation Psychiatric exam: PRESENT: appropriate affect Skin exam: PRESENT: dry - gangrene tip of left 3rd finger. Some cyanosis of tip left 4th finger Results Laboratory Results: 11/30/18 03:16 11/30/18 03:16 11/30/18 11/30/18 11/30/18 03:16 03:16 03:16 WBC 4.6 RBC 3.74 L Hgb 11.1 L Hct 34.4 L MCV 92 MCH 29.6 MCHC 32.2 RDW 24.0 H Plt Count 211 Seg Neutrophils % Not Reportable Lymphocytes % Not Reportable Monocytes % Not Reportable Eosinophils % Not Reportable Basophils % Not Reportable Absolute Neutrophils Not Reportable Absolute Lymphocytes Not Reportable Absolute Monocytes Not Reportable Absolute Eosinophils Not Reportable Absolute Basophils Not Reportable Sodium 139.1 Potassium 5.1 H Chloride 98 Carbon Dioxide 29 Anion Gap 12 BUN 28 H Creatinine 6.44 H Est GFR ( Amer) 11 L Est GFR (Non-Af Amer) 9 L Glucose 113 H Calcium 8.8 Magnesium 2.1 Ammonia Lipase 52.3 TSH Free T4 11/30/18 11/30/18 03:16 05:43 WBC RBC Hgb Hct MCV MCH MCHC RDW Plt Count Seg Neutrophils % Lymphocytes % Monocytes % Eosinophils % Basophils % Absolute Neutrophils Absolute Lymphocytes Absolute Monocytes Absolute Eosinophils Absolute Basophils Sodium Potassium Chloride Carbon Dioxide Anion Gap BUN Creatinine Est GFR ( Amer) Est GFR (Non-Af Amer) Glucose Calcium Magnesium Ammonia < 8.7 L Lipase TSH 2.28 Free T4 1.41 11/30/18 11/30/18 03:16 03:16 Creatine Kinase 50 L CK-MB (CK-2) 1.25 Troponin I 0.064 Impressions: Hand X-Ray 11/29/18 23:55 IMPRESSION: Soft tissue ulceration of the second digit. No acute osseous abnormality copyright 2010 [employer]- All Rights Reserved Assessment & Plan - Diagnosis (1) End stage renal disease Is this a current diagnosis for this admission?: Yes (2) Necrosis of finger Is this a current diagnosis for this admission?: Yes (3) Diabetes mellitus Qualifiers: Diabetes mellitus type: type 2 Chronic kidney disease stage: on chronic dialysis Is this a current diagnosis for this admission?: Yes (4) CKD (chronic kidney disease) stage V requiring chronic dialysis Is this a current diagnosis for this admission?: Yes - Time Time Spent: 30 to 50 Minutes - Inpatient Certification Medical Necessity: Need Close Monitoring Due to Risk of Patient Decompensation, Need for Pain Control, Risk of Complication if Not Cared For in Hospital - Plan Summary Plan Summary: Will need more time for 3rd and 2nd finger lesions to demarcate Question of healing with amputation at this time Would like to defer decision of timing of amputation with Dr Ocampo Have just discussed this patient with Dr Ocampo who suggested avoiding amputation at this time because of potential healing problems of amputation site. Dr Ocampo is willing to follow up patient in his office. He is familiar with t he patient.
[2018-11-30] MEDS ORDERED: SENNOSIDES/DOCUSATE 8.6-50 MG 1 EACH TABLET PO PRN (08:03)
[2018-11-30] MEDS ORDERED: ACETAMINOPHEN 325 MG TABLET PO PRN ×2 (08:03→12:20)
[2018-11-30] MEDS ORDERED: NITROGLYCERIN 0.4 MG/TAB 25 TAB/BOTTLE SL PRN (08:03)
[2018-11-30] MEDS ORDERED: LACTULOSE 20 GM PO SCH (08:15)
[2018-11-30] MEDS ORDERED: ASPIRIN 81 MG TABLET, CHEWABLE PO SCH (09:00)
[2018-11-30] MEDS ORDERED: AMIODARONE HCL 200 MG TABLET PO SCH (09:00)
[2018-11-30] MEDS ORDERED: LACTULOSE SYRUP 20 GM/30 ML UDCUP PO SCH (09:00)
[2018-11-30] MEDS: APIXABAN 2.5 MG TABLET PO SCH ×2 (09:01→17:04)
[2018-11-30] MEDS: MIDODRINE HCL 5 MG TABLET PO SCH ×3 (09:01→17:05)
[2018-11-30] MEDS: OXYCODONE HCL IR 5 MG TABLET PO PRN ×2 (09:34→19:53)
--- NOTE | 2018-11-30 09:38 | PDOC PROGRESS REPORT ---
Subjective Progress Note for:: 11/30/18 Subjective:: Painful fingers Reason For Visit: ESRD, GANGRENE OF FINGERS Physical Exam Vital Signs: Temp Pulse Resp BP Pulse Ox 98.2 F 58 L 18 122/42 L 93 11/30/18 05:16 11/30/18 05:16 11/30/18 05:16 11/30/18 05:16 11/30/18 00:03 Intake & Output 11/29/18 11/30/18 12/01/18 06:59 06:59 06:59 Weight 77.7 kg General appearance: PRESENT: no acute distress, cooperative Respiratory exam: PRESENT: clear to auscultation john Cardiovascular exam: PRESENT: RRR Extremities exam: PRESENT: other - I do not feel pulses in his bilateral radial and ulnar arteries. Both of his hands are warm with the exception of his left third finger and his right index finger which have distal dry necrosis and his left index finger is cool distally and tender. On his left upper arm he has a arteriovenous fistula with a thrill. And a palpable left brachial pulse. I am unable to palpate a right brachial pulse. Patient has had a right below-knee amputation and the stump is healed well. Patient's left foot is warm but I do not palpate any pedal pulses. There are no palpable popliteal pulses. He does have bilateral palpable femoral pulses. Results Laboratory Results: 11/30/18 03:16 11/30/18 03:16 11/30/18 11/30/18 11/30/18 03:16 03:16 03:16 WBC 4.6 RBC 3.74 L Hgb 11.1 L Hct 34.4 L MCV 92 MCH 29.6 MCHC 32.2 RDW 24.0 H Plt Count 211 Seg Neutrophils % Not Reportable Lymphocytes % Not Reportable Monocytes % Not Reportable Eosinophils % Not Reportable Basophils % Not Reportable Absolute Neutrophils Not Reportable Absolute Lymphocytes Not Reportable Absolute Monocytes Not Reportable Absolute Eosinophils Not Reportable Absolute Basophils Not Reportable Sodium 139.1 Potassium 5.1 H Chloride 98 Carbon Dioxide 29 Anion Gap 12 BUN 28 H Creatinine 6.44 H Est GFR ( Amer) 11 L Est GFR (Non-Af Amer) 9 L Glucose 113 H Calcium 8.8 Magnesium 2.1 Ammonia Lipase 52.3 TSH Free T4 11/30/18 11/30/18 03:16 05:43 WBC RBC Hgb Hct MCV MCH MCHC RDW Plt Count Seg Neutrophils % Lymphocytes % Monocytes % Eosinophils % Basophils % Absolute Neutrophils Absolute Lymphocytes Absolute Monocytes Absolute Eosinophils Absolute Basophils Sodium Potassium Chloride Carbon Dioxide Anion Gap BUN Creatinine Est GFR ( Amer) Est GFR (Non-Af Amer) Glucose Calcium Magnesium Ammonia < 8.7 L Lipase TSH 2.28 Free T4 1.41 11/30/18 11/30/18 03:16 03:16 Creatine Kinase 50 L CK-MB (CK-2) 1.25 Troponin I 0.064 Impressions: Hand X-Ray 11/29/18 23:55 IMPRESSION: Soft tissue ulceration of the second digit. No acute osseous abnormality copyright 2010 [employer]- All Rights Reserved Assessment & Plan - Diagnosis (1) Necrosis of finger Is this a current diagnosis for this admission?: Yes Plan: Dry gangrene of multiple fingers in the vasculopath patient with no palpable radial nor ulnar pulses. Patient also has history of atrial fib. Recommend transfer to facility with vascular surgery. Patient will also require cardiac echo to rule out thrombotic source in the heart. I have discussed my recommendation to admitting physician who will arrange transfer.
[2018-11-30] MEDS ORDERED: PROSTAT PO SCH (10:00)
[2018-11-30] MEDS ORDERED: GABAPENTIN 100 MG CAPSULE PO SCH (10:00)
[2018-11-30 11:08] LABS: CREATINE KINASE MB 1.09 ng/mL (<4.55); TROPONIN I 0.063 ng/mL
[2018-11-30] MEDS: CALCIUM ACETATE 667 MG CAPSULE PO SCH ×2 (13:01→17:46)
--- NOTE | 2018-11-30 15:51 | PDOC H&P ---
History of Present Illness Admission Date/PCP: 11/30/18 04:48 FEI ZULETA MD History of Present Illness: CHAPITO LESLIE is a 63 year old male, He has history of end-stage renal disease on maintenance hemodialysis, coronary artery disease status post coronary artery bypass grafting, presently in longterm for rehabilitation. He came to the emergency room for evaluation of pain involving multiple fingers of both hands, he has gangrene of the fingers, specifically the second and third finger of the left and and the second finger of the right and. He was recently admitted in 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 He was treated with IV antibiotic at the time with some improvement of the cellulitis of the hand. Patient was seen by the surgeon, the radial pulse was not palpable, the surgeon felt patient needed to be transferred to a facility with vascular surgery capabilities Past Medical History Cardiac Medical History: Reports: Atrial Fibrillation, Congestive Heart Failure, Coronary Artery Disease, Myocardial Infarction - x 3,triple bypass in october, Hypertension, Peripheral Vascular Disease Endocrine Medical History: Reports: Diabetes Mellitus Type 2 Renal/ Medical History: Reports: End Stage Renal Disease - Dialysis dependent GI Medical History: Reports: Gastroesophageal Reflux Disease Psychiatric Medical History: Reports: Depression Hematology: Past Surgical History Past Surgical History: Reports: Cardiac Catheterization, Coronary Artery Bypass Graft - X3 vessel on October 26, 2017, Orthopedic Surgery - Right big toe amputation in 2014, left third and fourth toe amputation, Vascular Surgery, Other - Cervical laminectomy in 2012; right AKA Denies: Pacemaker Social History Smoking Status: Unknown if Ever Smoked Frequency of Alcohol Use: Rare Hx Recreational Drug Use: No Drugs: None Hx Prescription Drug Abuse: No - Advance Directive Resuscitation Status: Full Code Family History Family History: Reviewed & Not Pertinent, CAD, Hypertension, Malignancy Parental Family History Reviewed: Yes Children Family History Reviewed: Yes Sibling(s) Family History Reviewed.: Yes Medication/Allergy Home Medications: Acetaminophen [Tylenol 325 mg Tablet] 650 mg PO Q4HP PRN 11/30/18 Amino AC/Protein Hydr/Whey Pro [Prosource Plus Liquid Packet] 30 ml PO BID 11/30/18 Amiodarone HCl [Pacerone] 200 mg PO QAM 11/30/18 Apixaban [Eliquis 2.5 mg Tablet] 2.5 mg PO BID 11/30/18 Aspirin [Aspirin 81 mg Chewable Tablet] 81 mg PO QAM 11/30/18 Atorvastatin Calcium [Lipitor 40 mg Tablet] 40 mg PO QHS 11/30/18 Calcium Acetate [Phoslo 667 mg Capsule] 667 mg PO MEALS 11/30/18 Cefepime 2 gm/D5w RTU [Maxipime RTU 2 gm-D5w 50 ml Premix Bag] 2 gm IV MOWEFR MDD AFTER HD 11/30/18 Clindamycin HCl [Cleocin 300 mg Capsule] 300 mg PO Q8 MDD X5DAYS 11/30/18 Clopidogrel Bisulfate [Plavix 75 mg Tablet] 75 mg PO QAM 11/30/18 Doxercalciferol [Hectorol] 5 mcg IV MOWEFR 11/30/18 Gabapentin [Neurontin 100 mg Capsule] 100 mg PO Q12 11/30/18 Ibuprofen 200 mg PO Q8HP PRN 11/30/18 Lactulose [Constulose 10 gm/15 mL Oral Solution] 20 gm PO QAM 11/30/18 Midodrine HCl [Proamatine 5 mg Tablet] 2.5 mg PO TID MDD HOLD FOR SBP 130 11/30/18 Mirtazapine [Remeron] 30 mg PO QHS 11/30/18 Nitroglycerin [Nitrostat 0.4 mg (1/150 Gr) Tabs 25/Bottle] 0.4 mg SL Q5MP PRN 11/30/18 Ondansetron HCl [Zofran 4 mg Tablet] 4 mg PO Q6HP PRN 11/30/18 Oxycodone HCl [Oxycodone HCl 10 MG Tablet] 10 mg PO Q8HP PRN 11/30/18 Sennosides/Docusate 8.6-50 mg [Senna Plus Tablet] 1 tab PO BIDP PRN 11/30/18 Sodium Thiosulfate Inj 1 gm SQ DAILY 11/30/18 Allergies/Adverse Reactions: vancomycin [Vancomycin] Adverse Reaction (Unknown, Verified 11/08/18 23: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 Review of Systems Constitutional: ABSENT: chills, fever(s), headache(s), weight gain, weight loss Eyes: ABSENT: visual disturbances Ears: ABSENT: hearing changes Cardiovascular: ABSENT: chest pain, dyspnea on exertion, edema, orthropnea, palpitations Respiratory: ABSENT: cough, hemoptysis Gastrointestinal: ABSENT: abdominal pain, constipation, diarrhea, hematemesis, hematochezia, nausea, vomiting Genitourinary: ABSENT: dysuria, hematuria Musculoskeletal: ABSENT: joint swelling Integumentary: ABSENT: rash, wounds Neurological: ABSENT: abnormal gait, abnormal speech, confusion, dizziness, focal weakness, syncope Psychiatric: ABSENT: anxiety, depression, homidical ideation, suicidal ideation Endocrine: ABSENT: cold intolerance, heat intolerance, menstrual abnormalities, polydipsia, polyuria Hematologic/Lymphatic: ABSENT: easy bleeding, easy bruising, lymphadenopathy Physical Exam Vital Signs: Temp Pulse Resp BP Pulse Ox 98.3 F 59 L 18 151/46 H 93 11/30/18 11:15 11/30/18 14:00 11/30/18 11:15 11/30/18 11:15 11/30/18 11:15 Intake & Output 11/29/18 11/30/18 12/01/18 06:59 06:59 06:59 Weight 77.7 kg General appearance: PRESENT: no acute distress, well-developed, well-nourished Head exam: PRESENT: atraumatic, normocephalic Eye exam: PRESENT: conjunctiva pink, EOMI, PERRLA Ear exam: PRESENT: normal external ear exam Mouth exam: PRESENT: moist, tongue midline Neck exam: PRESENT: full ROM Respiratory exam: PRESENT: clear to auscultation john Cardiovascular exam: PRESENT: RRR, +S1, +S2 Pulses: PRESENT: normal dorsalis pedis pul, +2 pedal pulses bilateral Vascular exam: PRESENT: normal capillary refill GI/Abdominal exam: PRESENT: normal bowel sounds, soft Rectal exam: PRESENT: deferred Extremities exam: PRESENT: right BKA, other - Gangrene of multiple fingers of both hands Neurological exam: PRESENT: alert, awake, oriented to person, oriented to place, oriented to time, oriented to situation, CN II-XII grossly intact Psychiatric exam: PRESENT: appropriate affect, normal mood Skin exam: PRESENT: dry, intact, warm Results Laboratory Results: 11/30/18 03:16 11/30/18 03:16 11/30/18 11/30/18 11/30/18 03:16 03:16 03:16 WBC 4.6 RBC 3.74 L Hgb 11.1 L Hct 34.4 L MCV 92 MCH 29.6 MCHC 32.2 RDW 24.0 H Plt Count 211 Seg Neutrophils % Not Reportable Lymphocytes % Not Reportable Monocytes % Not Reportable Eosinophils % Not Reportable Basophils % Not Reportable Absolute Neutrophils Not Reportable Absolute Lymphocytes Not Reportable Absolute Monocytes Not Reportable Absolute Eosinophils Not Reportable Absolute Basophils Not Reportable Sodium 139.1 Potassium 5.1 H Chloride 98 Carbon Dioxide 29 Anion Gap 12 BUN 28 H Creatinine 6.44 H Est GFR ( Amer) 11 L Est GFR (Non-Af Amer) 9 L Glucose 113 H Calcium 8.8 Magnesium 2.1 Ammonia Lipase 52.3 TSH Free T4 11/30/18 11/30/18 03:16 05:43 WBC RBC Hgb Hct MCV MCH MCHC RDW Plt Count Seg Neutrophils % Lymphocytes % Monocytes % Eosinophils % Basophils % Absolute Neutrophils Absolute Lymphocytes Absolute Monocytes Absolute Eosinophils Absolute Basophils Sodium Potassium Chloride Carbon Dioxide Anion Gap BUN Creatinine Est GFR ( Amer) Est GFR (Non-Af Amer) Glucose Calcium Magnesium Ammonia < 8.7 L Lipase TSH 2.28 Free T4 1.41 11/30/18 11/30/18 11/30/18 03:16 03:16 09:33 Creatine Kinase 50 L 41 L CK-MB (CK-2) 1.25 Troponin I 0.064 11/30/18 09:33 Creatine Kinase CK-MB (CK-2) 1.09 Troponin I 0.063 Impressions: Hand X-Ray 11/29/18 23:55 IMPRESSION: Soft tissue ulceration of the second digit. No acute osseous abnormality copyright 2011 [employer]- All Rights Reserved Assessment & Plan - Diagnosis (1) Gangrene of finger of both hands Is this a current diagnosis for this admission?: Yes Plan: The differential diagnosis includes thromboembolic occlusive disease, calciphylaxis, vasculopathy, it is unlikely to be thromboembolic occlusive from A. fib because patient is on anticoagulants with Eliquis (2) Chronic atrial fibrillation Is this a current diagnosis for this admission?: Yes
[2018-11-30 16:38] LABS: CREATINE KINASE MB 1.15 ng/mL (<4.55); TROPONIN I 0.062 ng/mL
--- NOTE | 2018-11-30 17:11 | PDOC TRANSFER SUMMARY ---
General Admission Date/PCP: 11/30/18 04:48 FEI ZULETA MD Admission Date: 11/30/18 Transfer Date: 11/30/18 Accepting Facility: [facility] Resuscitation Status: Full Code - Transfer Diagnosis (1) Gangrene of finger of both hands Is this a current diagnosis for this admission?: Yes (2) Chronic atrial fibrillation Is this a current diagnosis for this admission?: Yes (3) End stage renal disease Is this a current diagnosis for this admission?: Yes (4) Anemia in chronic kidney disease (CKD) Is this a current diagnosis for this admission?: Yes - Transfer Medications Home Medications: Acetaminophen [Tylenol 325 mg Tablet] 650 mg PO Q4HP PRN 11/30/18 Amino AC/Protein Hydr/Whey Pro [Prosource Plus Liquid Packet] 30 ml PO BID 11/30/18 Amiodarone HCl [Pacerone] 200 mg PO QAM 11/30/18 Apixaban [Eliquis 2.5 mg Tablet] 2.5 mg PO BID 11/30/18 Aspirin [Aspirin 81 mg Chewable Tablet] 81 mg PO QAM 11/30/18 Atorvastatin Calcium [Lipitor 40 mg Tablet] 40 mg PO QHS 11/30/18 Calcium Acetate [Phoslo 667 mg Capsule] 667 mg PO MEALS 11/30/18 Cefepime 2 gm/D5w RTU [Maxipime RTU 2 gm-D5w 50 ml Premix Bag] 2 gm IV MOWEFR MDD AFTER HD 11/30/18 Clindamycin HCl [Cleocin 300 mg Capsule] 300 mg PO Q8 MDD X5DAYS 11/30/18 Clopidogrel Bisulfate [Plavix 75 mg Tablet] 75 mg PO QAM 11/30/18 Doxercalciferol [Hectorol] 5 mcg IV MOWEFR 11/30/18 Gabapentin [Neurontin 100 mg Capsule] 100 mg PO Q12 11/30/18 Ibuprofen 200 mg PO Q8HP PRN 11/30/18 Lactulose [Constulose 10 gm/15 mL Oral Solution] 20 gm PO QAM 11/30/18 Midodrine HCl [Proamatine 5 mg Tablet] 2.5 mg PO TID MDD HOLD FOR SBP 130 11/30/18 Mirtazapine [Remeron] 30 mg PO QHS 11/30/18 Nitroglycerin [Nitrostat 0.4 mg (1/150 Gr) Tabs 25/Bottle] 0.4 mg SL Q5MP PRN 11/30/18 Ondansetron HCl [Zofran 4 mg Tablet] 4 mg PO Q6HP PRN 11/30/18 Oxycodone HCl [Oxycodone HCl 10 MG Tablet] 10 mg PO Q8HP PRN 11/30/18 Sennosides/Docusate 8.6-50 mg [Senna Plus Tablet] 1 tab PO BIDP PRN 11/30/18 Sodium Thiosulfate Inj 1 gm SQ DAILY 11/30/18 Transfer Medications: Current Medications Acetaminophen (Tylenol 325 Mg Tablet) 650 mg PO Q8HP PRN PRN Reason: FOR PAIN OR FEVER Stop: 12/30/18 12:19 Amiodarone HCl (Cordarone 200 Mg Tablet) 200 mg PO QAM [facility] Stop: 12/30/18 08:59 Last Admin: 11/30/18 08:46 Dose: Not Given Documented by: Apixaban (Eliquis 2.5 Mg Tablet) 2.5 mg PO BID [facility] Stop: 12/30/18 09:59 Last Admin: 11/30/18 09:01 Dose: Not Given Documented by: Aspirin (Aspirin 81 Mg Chewable Tablet) 81 mg PO QAM [facility] Stop: 12/30/18 08:59 Last Admin: 11/30/18 08:26 Dose: Not Given Documented by: Atorvastatin Calcium (Lipitor 40 Mg Tablet) 40 mg PO QHS [facility] Stop: 12/30/18 21:59 Calcium Acetate (Phoslo 667 Mg Capsule) 667 mg PO MEALS [facility] Stop: 12/30/18 11:59 Last Admin: 11/30/18 13:01 Dose: 667 mg Documented by: Gabapentin (Neurontin 100 Mg Capsule) 100 mg PO Q12 [facility] Stop: 12/30/18 09:59 Last Admin: 11/30/18 09:01 Dose: Not Given Documented by: Lactulose (Cephulac Syrup 20 Gm/30 Ml Udcup) 20 gm PO QAM [facility] Stop: 12/30/18 08:59 Last Admin: 11/30/18 08:26 Dose: Not Given Documented by: Midodrine (Proamatine 5 Mg Tablet) 2.5 mg PO TID [facility] Stop: 12/30/18 09:59 Last Admin: 11/30/18 12:59 Dose: Not Given Documented by: Mirtazapine (Remeron 15 Mg Tablet) 30 mg PO QHS [facility] Stop: 12/30/18 21:59 Nitroglycerin (Nitrostat 0.4 Mg (1/150 Gr) Tabs 25/Bottle) 1 tab SL Q5MP PRN PRN Reason: FOR CHEST PAIN Stop: 12/30/18 08:02 Oxycodone HCl (Oxy-Ir 5 Mg Tablet) 10 mg PO Q8HP PRN PRN Reason: PAIN Stop: 12/07/18 08:22 Last Admin: 11/30/18 09:34 Dose: 10 mg Documented by: Patient Own Medication (Doxercalciferol [Hectorol]) 5 mcg IV .MOWEFR [facility] Stop: 12/31/18 08:02 Patient Own Medication (Prostat) 30 ml PO .BID [facility] Stop: 12/30/18 09:59 Senna/Docusate Sodium (Senna Plus Tablet) 1 each PO BIDP PRN PRN Reason: FOR CONSTIPATION Stop: 12/30/18 08:02 - Allergies Allergies/Adverse Reactions: vancomycin [Vancomycin] Adverse Reaction (Unknown, Verified 11/08/18 23: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 Hospital Course Hospital Course: 63-year-old male, he has a history of end-stage renal disease on maintenance hemodialysis, coronary artery disease status post coronary bypass grafting pre sently in the [facility] for rehabilitation. He came to the emergency room for evaluation of pain involving multiple fingers of both hands. 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 He was transferred to the hospital because of continued pain, he was seen by the surgeon the radial pulse was not palpable, the surgeon felt patient needed to be transferred to a facility with vascular surgical capabilities. It is unlikely that this is a thromboembolic phenomena from A. fib because patient is on anticoagulant Eliquis Physical Exam Vital Signs: Temp Pulse Resp BP Pulse Ox 97.9 F 55 L 18 152/83 H 100 11/30/18 16:08 11/30/18 16:08 11/30/18 11:15 11/30/18 16:08 11/30/18 16:08 Intake & Output 11/29/18 11/30/18 12/01/18 06:59 06:59 06:59 Weight 77.7 kg General appearance: PRESENT: no acute distress Eye exam: PRESENT: PERRLA Respiratory exam: PRESENT: clear to auscultation john Cardiovascular exam: PRESENT: +S1, +S2 GI/Abdominal exam: PRESENT: soft Extremities exam: PRESENT: other - Right below-knee amputation, gangrene of multiple fingers Neurological exam: PRESENT: alert Results Laboratory Results: 11/30/18 03:16 11/30/18 03:16 11/30/18 11/30/18 11/30/18 03:16 03:16 03:16 WBC 4.6 RBC 3.74 L Hgb 11.1 L Hct 34.4 L MCV 92 MCH 29.6 MCHC 32.2 RDW 24.0 H Plt Count 211 Seg Neutrophils % Not Reportable Lymphocytes % Not Reportable Monocytes % Not Reportable Eosinophils % Not Reportable Basophils % Not Reportable Absolute Neutrophils Not Reportable Absolute Lymphocytes Not Reportable Absolute Monocytes Not Reportable Absolute Eosinophils Not Reportable Absolute Basophils Not Reportable Sodium 139.1 Potassium 5.1 H Chloride 98 Carbon Dioxide 29 Anion Gap 12 BUN 28 H Creatinine 6.44 H Est GFR ( Amer) 11 L Est GFR (Non-Af Amer) 9 L Glucose 113 H Calcium 8.8 Magnesium 2.1 Ammonia Lipase 52.3 TSH Free T4 11/30/18 11/30/18 03:16 05:43 WBC RBC Hgb Hct MCV MCH MCHC RDW Plt Count Seg Neutrophils % Lymphocytes % Monocytes % Eosinophils % Basophils % Absolute Neutrophils Absolute Lymphocytes Absolute Monocytes Absolute Eosinophils Absolute Basophils Sodium Potassium Chloride Carbon Dioxide Anion Gap BUN Creatinine Est GFR ( Amer) Est GFR (Non-Af Amer) Glucose Calcium Magnesium Ammonia < 8.7 L Lipase TSH 2.28 Free T4 1.41 11/30/18 11/30/18 11/30/18 03:16 03:16 09:33 Creatine Kinase 50 L 41 L CK-MB (CK-2) 1.25 Troponin I 0.064 11/30/18 11/30/18 11/30/18 09:33 15:28 15:28 Creatine Kinase 40 L CK-MB (CK-2) 1.09 1.15 Troponin I 0.063 0.062 Impressions: Hand X-Ray 11/29/18 23:55 IMPRESSION: Soft tissue ulceration of the second digit. No acute osseous abnormality copyright 2010 [employer]- All Rights Reserved
[2018-11-30 21:27] VITALS: BP 135/82
[2018-11-30] MEDS ORDERED: MIRTAZAPINE 15 MG TABLET PO SCH (22:00)
[2018-11-30] MEDS ORDERED: ATORVASTATIN CALCIUM 40 MG TABLET PO SCH (22:00)
[2018-12-01] MEDS ORDERED: DOXERCALCIFEROL IV SCH (08:03)
== END 2018-11-30 21:34 | disposition short-term general hospital (02) ==
LOC: ER 23:37 → INTOOBSV 11-30 04:48 → EH 11-30 04:48 → 5 11-30 07:12
PROVIDERS: ADMIT Internal Medicine; ATTEND Internal Medicine
DX: E11.52 Type 2 diabetes mellitus with diabetic peripheral angiopathy with gangrene (principal); I96 Gangrene, not elsewhere classified; I13.2 Hypertensive heart and chronic kidney disease with heart failure and with stage 5 chronic kidney disease, or end stage renal disease; E11.22 Type 2 diabetes mellitus with diabetic chronic kidney disease; N18.6 End stage renal disease; I50.9 Heart failure, unspecified; D63.1 Anemia in chronic kidney disease; Z99.2 Dependence on renal dialysis; I25.10 Atherosclerotic heart disease of native coronary artery without angina pectoris; I48.2 Chronic atrial fibrillation; I73.9 Peripheral vascular disease, unspecified; K21.9 Gastro-esophageal reflux disease without esophagitis; F32.9 Major depressive disorder, single episode, unspecified; Z79.82 Long term (current) use of aspirin; Z79.899 Other long term (current) drug therapy; Z79.02 Long term (current) use of antithrombotics/antiplatelets; Z95.1 Presence of aortocoronary bypass graft; I25.2 Old myocardial infarction; Z89.611 Acquired absence of right leg above knee; Z89.411 Acquired absence of right great toe; Z89.422 Acquired absence of other left toe(s); Z88.1 Allergy status to other antibiotic agents
CPT/HCPCS: 36415; 87040; 84439; 82553; 82140; 82550; 83690; 83735; 84443; 85025; 85610; 85730; 80048; 84484; 73130; J2543; 99284; G0378

== ENCOUNTER → 2018-12-19 | Outpatient (CLI) | payer MEDICARE ==
--- NOTE | 2018-12-19 13:41 | RADIOLOGY REPORT (SQ) ---
EXAM DESCRIPTION: HAND LEFT 3 VIEWS COMPLETED DATE/TIME: 12/19/2018 1:12 pm REASON FOR STUDY: LOCAL INFECTION OF THE SKIN AND SUBCUTANEOUS TISSUE, UNSP,ERYTHEMATOUS COND E11.62 1 TYPE 2 DIABETES MELLITUS WITH FOOT ULCER J93.9 PNEUMOTHORAX, UNSPECIFIED L53.9 ERYTHEMATOUS COND ITION, UNSPECIFIED COMPARISON: 11/30/2018 EXAM PARAMETERS: NUMBER OF VIEWS: Three views. TECHNIQUE: AP, lateral and oblique radiographic images acquired of the left hand. LIMITATIONS: None. FINDINGS: MINERALIZATION: Normal. BONES: Surgical changes amputation of the 3rd digit at the mid aspect of the proximal phalanx. There is small associated ossific densities with irregular distal cortex. There is a small fracture of th e volar aspect of the 3rd proximal phalanx diaphysis. No other evidence of fracture or dislocation. Scattered small osteophytes at the interphalangeal joints. JOINTS: No large effusion. SOFT TISSUES: Soft tissue swelling about the distal 3rd digit. Extensive vascular calcifications. OTHER: No other significant finding. IMPRESSION: 1. Postsurgical change from the 3rd digit amputation at the mid aspect of the proximal phalanx. Small fracture fragment with adjacent calcific densities, likely postsurgical. Associated soft tissue swelling. 2. No other evidence of acute bony abnormality. TECHNICAL DOCUMENTATION: JOB ID: [id number] [employer]- All Rights Reserved Reading location - IP/workstation name: [email or web address]
[2018-12-19 14:04] LABS: ABSOLUTE LYMPHOCYTES (AUTO) 0.8 10^3/uL (0.5-4.7); ABSOLUTE MONOCYTES (AUTO) 0.5 10^3/uL (0.1-1.4); ABSOLUTE NEUT (AUTO) 4.3 10^3/uL (1.7-8.2); BASOPHILS % (AUTO) 0.7 % (0-2); EOSINOPHILS % (AUTO) 15.3 % (0-6); HEMATOCRIT 33.1 % (37.9-51.0); HEMOGLOBIN 10.6 g/dL (13.5-17.0); LYMPHOCYTES % (AUTO) 12.1 % (13-45); MEAN CORPUSCULAR HEMOGLOBIN 29.1 pg (27.0-33.4); MEAN CORPUSCULAR HGB CONC 31.9 g/dL (32.0-36.0); MEAN CORPUSCULAR VOLUME 91 fl (80-97); MONOCYTES % (AUTO) 7.5 % (3-13); PLATELET COUNT 234 10^3/uL (150-450); RED BLOOD COUNT 3.64 10^6/uL (4.35-5.55); RED CELL DISTRIBUTION WIDTH 23.8 % (11.5-14.0); SEGMENTED NEUTROPHILS % (AUTO) 64.4 % (42-78); TOTAL CELLS COUNTED % (AUTO) 100 %; WHITE BLOOD COUNT 6.6 10^3/uL (4.0-10.5)
--- NOTE | 2018-12-19 14:05 | RADIOLOGY REPORT (SQ) ---
EXAM DESCRIPTION: CHEST PA/LATERAL COMPLETED DATE/TIME: 12/19/2018 1:12 pm REASON FOR STUDY: PNEUMOTHORAX, UNSPECIFIED COMPARISON: 11/08/2018 EXAM PARAMETERS: NUMBER OF VIEWS: two views TECHNIQUE: Digital Frontal and Lateral radiographic views of the chest acquired. RADIATION DOSE: NA LIMITATIONS: none FINDINGS: LUNGS AND PLEURA: Interval resolution of the right lower lobe pneumonia. Persistent decr easing in bandlike opacity at the left lung base. No evidence of pneumothorax or pleural effusion. MEDIASTINUM AND HILAR STRUCTURES: No masses or contour abnormalities. HEART AND VASCULAR STRUCTURES: Cardiomegaly, stable finding. No evidence for failure. BONES: The osseous structures are stable in appearance. HARDWARE: Prior anterior median sternotomy. OTHER: Soft tissue vascular calcifications at the base of the neck bilaterally and axilla--upper for earms. IMPRESSION: 1. Since the previous examination dated 11/08/2018, interval resolution of the right lowe r lung pneumonia. Persistent decreasing band-like opacity at the left lung base. No evidence of pne umothorax. 2. Cardiomegaly, stable finding. TECHNICAL DOCUMENTATION: JOB ID: [id number] [employer]- All Rights Reserved Reading location - IP/workstation name: [email or web address]
[2018-12-19 14:44] LABS: ERYTHROCYTE SEDIMENTATION RATE 77 mm/hr (0-20)
== END ==
LOC: WC 12:40
PROVIDERS: ATTEND Nurse Practitioner Family
DX: E11.621 Type 2 diabetes mellitus with foot ulcer (principal); J93.9 Pneumothorax, unspecified; S62.618A Displaced fracture of proximal phalanx of other finger, initial encounter for closed fracture; X58.XXXA Exposure to other specified factors, initial encounter; L53.9 Erythematous condition, unspecified
CPT/HCPCS: 36415; 71046; 83036; 85025; 85652; 86140

== ENCOUNTER 2018-12-27 13:22 | Emergency (ER) | payer MEDICARE ==
[2018-12-27 14:27] VITALS: BP 162/40
--- NOTE | 2018-12-27 14:42 | ER Document Report ---
ED Medical Screen (RME) - General Chief Complaint: Hand Pain Stated Complaint: FINGER PAIN Time Seen by Provider: 12/27/18 14:39 Primary Care Provider: GILDARDO AGUAYO NP, [employer] [Primary Care Provider] - Follow up as needed Mode of Arrival: Ambulatory Information source: Patient Notes: 63-year-old male presented to ED for complaint of severe pain to the left hand. He states he had the left middle finger amputated 3 weeks ago for diabetes infection. The hand looks very infected at this time. It is very red swollen and warm to the touch. He states he came to the emergency room today due to the pain. He states that the hand is look the same for the last 3 weeks and that he has a follow-up appointment with his surgeon on . Patient is alert oriented, respirations regular and unlabored, and speaking in full sentences. He is here with his and granddaughter. I have greeted and performed a rapid initial assessment of this patient. A comprehensive ED assessment and evaluation of the patient, analysis of test results and completion of medical decision making process will be conducted by an additional ED providers. Dictation of this chart was performed using voice recognition software; therefore, there may be some unintended grammatical errors. TRAVEL OUTSIDE OF THE [place] IN LAST 30 DAYS: No - Related Data Allergies/Adverse Reactions: vancomycin [Vancomycin] Adverse Reaction (Unknown, Verified 12/27/18 13:22) molina syndrome Past Medical History - Past Medical History Cardiac Medical History: Reports: Hx Atrial Fibrillation, Hx Congestive Heart Failure, Hx Coronary Artery Disease, Hx Heart Attack - x 3,triple bypass in october, Hx Hypertension, Hx Peripheral Vascular Disease Pulmonary Medical History: Denies: Hx Asthma, Hx Bronchitis, Hx COPD, Hx Pneumonia Neurological Medical History: Denies: Hx Cerebrovascular Accident, Hx Seizures Endocrine Medical History: Reports: Hx Diabetes Mellitus Type 1, Hx Diabetes Mellitus Type 2 Renal/ Medical History: Reports: Hx End Stage Renal Disease - Dialysis dependent, Hx Hemodialysis, Hx Renal Insufficiency. Denies: Hx Peritoneal Dialysis GI Medical History: Reports: Hx Gastroesophageal Reflux Disease. Denies: Hx Hepatitis, Hx Hiatal Hernia, Hx Ulcer Musculoskeltal Medical History: Denies Hx Arthritis Skin Medical History: Denies Hx Psoriasis Psychiatric Medical History: Reports: Hx Depression Traumatic Medical History: Denies: Hx Traumatic Brain Injury Infectious Medical History: Denies: Hx Hepatitis Past Surgical History: Reports: Hx Cardiac Catheterization, Hx Cardiac Surgery - triple bypass, Hx Coronary Artery Bypass Graft - X3 vessel on October 26, 2017, Hx Orthopedic Surgery - Right big toe amputation in 2014, left third and fourth toe amputation, Hx Vascular Surgery, Other - Cervical laminectomy in 2012; right AKA. Denies: Hx Open Heart Surgery, Hx Pacemaker - Immunizations Hx Diphtheria, Pertussis, Tetanus Vaccination: Yes History of Influenza Vaccine for 03/2017 - 08/2017 Season: Yes Influenza Administration Date for 03/2017 - 08/2017 Season: 03/06/18 Physical Exam - Vital signs Vitals: Temp Pulse Resp BP Pulse Ox 98.0 F 51 L 16 162/40 H 98 12/27/18 14:25 12/27/18 14:25 12/27/18 14:25 12/27/18 14:25 12/27/18 14:25 Course - Vital Signs Vital signs: Temp Pulse Resp BP Pulse Ox 98.0 F 51 L 16 162/40 H 98 12/27/18 14:25 12/27/18 14:25 12/27/18 14:25 12/27/18 14:25 12/27/18 14:25 Doctor's Discharge - Discharge Referrals: GILDARDO AGUAYO [employer], [employer] [Primary Care Provider] - Follow up as needed
[2018-12-27 15:03] LABS: ABSOLUTE BASOPHILS # (AUTO) 0.1 10^3/uL (0.0-0.2); ABSOLUTE EOSINOPHILS # (AUTO) 0.7 10^3/uL (0.0-0.6); ABSOLUTE LYMPHOCYTES (AUTO) 0.7 10^3/uL (0.5-4.7); ABSOLUTE MONOCYTES (AUTO) 0.7 10^3/uL (0.1-1.4); ABSOLUTE NEUT (AUTO) 5.1 10^3/uL (1.7-8.2); BASOPHILS % (AUTO) 1.2 % (0-2); EOSINOPHILS % (AUTO) 9.2 % (0-6); HEMATOCRIT 38.2 % (37.9-51.0); HEMOGLOBIN 12.1 g/dL (13.5-17.0); LYMPHOCYTES % (AUTO) 9.6 % (13-45); MEAN CORPUSCULAR HEMOGLOBIN 28.8 pg (27.0-33.4); MEAN CORPUSCULAR HGB CONC 31.8 g/dL (32.0-36.0); MEAN CORPUSCULAR VOLUME 90 fl (80-97); MONOCYTES % (AUTO) 9.5 % (3-13); PLATELET COUNT 272 10^3/uL (150-450); RED BLOOD COUNT 4.22 10^6/uL (4.35-5.55); SEGMENTED NEUTROPHILS % (AUTO) 70.5 % (42-78); TOTAL CELLS COUNTED % (AUTO) 100 %; WHITE BLOOD COUNT 7.2 10^3/uL (4.0-10.5)
[2018-12-27 15:21] LABS: ALANINE AMINOTRANSFERASE 14 U/L (21-72); ALKALINE PHOSPHATASE 113 U/L (38-126); ANION GAP 9 (5-19); ASPARTATE AMINO TRANSFERASE 17 U/L (17-59); BILIRUBIN,DIRECT 0.5 mg/dL (0.0-0.4); BILIRUBIN,TOTAL 0.7 mg/dL (0.2-1.3); BLOOD UREA NITROGEN 16 mg/dL (7-20); CALCIUM 8.8 mg/dL (8.4-10.2); CARBON DIOXIDE 33 mmol/L (22-30); CHLORIDE 95 mmol/L (98-107); GLUCOSE 103 mg/dL (75-110); POTASSIUM 3.9 mmol/L (3.6-5.0); TOTAL PROTEIN 8.8 g/dL (6.3-8.2)
--- NOTE | 2018-12-27 15:55 | RADIOLOGY REPORT (SQ) ---
EXAM DESCRIPTION: HAND LEFT 3 VIEWS COMPLETED DATE/TIME: 12/27/2018 3:44 pm REASON FOR STUDY: Red swollen painful. Recent amputation of middle COMPARISON: 12/19/2018 EXAM PARAMETERS: NUMBER OF VIEWS: Three views. TECHNIQUE: AP, lateral and oblique radiographic images acquired of the left hand. LIMITATIONS: None. FINDINGS: MINERALIZATION: Normal. BONES: Redemonstrated postoperative findings of trans proximal phalangeal amputation of the left 3rd digit. There are subtle fractures of the phalangeal stump as seen on prior examination. JOINTS: No effusions. SOFT TISSUES: Extensive vascular calcinosis. Soft tissue swelling of the 3rd digit amputation stump. OTHER: No other significant finding. IMPRESSION: Redemonstrated postoperative findings of trans proximal phalangeal amputation of the lef t 3rd digit. There are subtle fractures of the phalangeal stump as seen on prior examination. Soft t issue swelling of the 3rd digit amputation stump. There is no significant interval change compared t o prior examination. TECHNICAL DOCUMENTATION: JOB ID: [id number] [employer]- All Rights Reserved Reading location - IP/workstation name: [email or web address]
--- NOTE | 2018-12-27 18:29 | ER Document Report ---
ED General - General Chief Complaint: Hand Pain Stated Complaint: FINGER PAIN Time Seen by Provider: 12/27/18 14:39 Primary Care Provider: GILDARDO AGUAYO VP [facility] GENERAL COUNSEL, VP [facility] GENERAL COUNSEL [NURSE PRACTITIONER] - Follow up as needed Mode of Arrival: Ambulatory TRAVEL OUTSIDE OF THE [place] IN LAST 30 DAYS: No - HPI Notes: 63-year-old male to the emergency department with complaints of left middle finger pain and redness that is been getting worse over the past week. He had the left middle finger amputated about 3 weeks ago in [place] by a vascular specialist when he had an infected finger ulcer that would not get better despite antibiotics. He states that he has been on antibiotics until last week. Not currently on antibiotics. He is currently being followed by Dr. Rowe for wound care. He states that Dr. Rowe took out a couple of sutures last week but was going to see him this week and finished taking out sutures. He denies any fevers, chills, chest pain, nausea, vomiting, diarrhea. He states that he has redness to the back of his hand and to the palmar aspect. He states this is not particularly new or worsening but it is persistent. He states that he is in end-stage renal disease patient and he gets his dialysis every Tuesday, Tuesday, Tuesday. He did get his dialysis today. States that he is currently on 5 mg [place] but they are not helping control his pain. - Related Data Allergies/Adverse Reactions: vancomycin [Vancomycin] Adverse Reaction (Unknown, Verified 12/27/18 19:16) molina syndrome morphine Adverse Reaction (Verified 12/27/18 19:16) Past Medical History - General Information source: Patient - Social History Smoking Status: Never Smoker Chew tobacco use (# tins/day): No Frequency of alcohol use: None Drug Abuse: None Family History: Reviewed & Not Pertinent, CAD, Hypertension, Malignancy Patient has suicidal ideation: No Patient has homicidal ideation: No - Past Medical History Cardiac Medical History: Reports: Hx Atrial Fibrillation, Hx Congestive Heart Failure, Hx Coronary Artery Disease, Hx Heart Attack - x 3,triple bypass in october, Hx Hypertension, Hx Peripheral Vascular Disease Pulmonary Medical History: Denies: Hx Asthma, Hx Bronchitis, Hx COPD, Hx Pneumonia Neurological Medical History: Denies: Hx Cerebrovascular Accident, Hx Seizures Endocrine Medical History: Reports: Hx Diabetes Mellitus Type 1, Hx Diabetes Mellitus Type 2 Renal/ Medical History: Reports: Hx End Stage Renal Disease - Dialysis dependent, Hx Hemodialysis, Hx Renal Insufficiency. Denies: Hx Peritoneal Dialysis GI Medical History: Reports: Hx Gastroesophageal Reflux Disease. Denies: Hx Hepatitis, Hx Hiatal Hernia, Hx Ulcer Musculoskeletal Medical History: Denies Hx Arthritis Skin Medical History: Denies Hx Psoriasis Psychiatric Medical History: Reports: Hx Depression Traumatic Medical History: Denies: Hx Traumatic Brain Injury Infectious Medical History: Denies: Hx Hepatitis Past Surgical History: Reports: Hx Cardiac Catheterization, Hx Cardiac Surgery - triple bypass, Hx Coronary Artery Bypass Graft - X3 vessel on October 26, 2017, Hx Orthopedic Surgery - Right big toe amputation in 2014, left third and fourth toe amputation, Hx Vascular Surgery, Other - Cervical laminectomy in 2012; right AKA. Denies: Hx Open Heart Surgery, Hx Pacemaker - Immunizations Hx Diphtheria, Pertussis, Tetanus Vaccination: Yes Hx Pneumococcal Vaccination: 02/05/15 Review of Systems - Review of Systems Constitutional: denies: Chills, Fever EENT: No symptoms reported Cardiovascular: denies: Chest pain, Palpitations, Dyspnea, Syncope, Dizziness, Lightheaded Respiratory: denies: Cough, Short of breath Gastrointestinal: denies: Abdominal pain, Diarrhea, Nausea, Vomiting Musculoskeletal: See HPI, Joint pain, Joint swelling Skin: See HPI, Change in color Neurological/Psychological: No symptoms reported -: Yes All other systems reviewed and negative Physical Exam - Vital signs Vitals: Temp Pulse Resp BP Pulse Ox 98.0 F 51 L 16 162/40 H 98 12/27/18 14:25 12/27/18 14:25 12/27/18 14:25 12/27/18 14:25 12/27/18 14:25 Interpretation: Hypertensive - General General appearance: Appears well, Alert - HEENT Head: Normocephalic, Atraumatic Eyes: Normal Pupils: PERRL - Respiratory Respiratory status: No respiratory distress Chest status: Nontender Breath sounds: Normal Chest palpation: Normal - Cardiovascular Rhythm: Regular Heart sounds: Normal auscultation Murmur: No Notes: AV fistula to the left upper arm - Abdominal Inspection: Normal Distension: No distension Bowel sounds: Normal Tenderness: Nontender Organomegaly: No organomegaly - Back Back: Normal, Nontender - Extremities Hand: Tender, Other - There is noted edema, erythema, tenderness to palpation over the left middle finger where it has been amputated. The distal portion of the amputation has several sutures still in place and is crusted over with scab. It is very tender to palpation. There is no active purulence on inspection. There is erythema to the stump of the finger and then to the back of the hand and a small amount to the palmar aspect. There is no caro abscess. Radial and ulnar pulses are not palpable on exam and not discernible with Doppler. Cap refill to the remaining fingers is approximately 4 seconds. Fingers are not dusky or cold. - Neurological Neuro grossly intact: Yes Cognition: Normal Orientation: AAOx4 Doug Coma Scale Eye Opening: Spontaneous [place] Coma Scale Verbal: Oriented Doug Coma Scale Motor: Obeys Commands Doug Coma Scale Total: 15 Speech: Normal Motor strength normal: LUE, RUE, LLE, RLE Sensory: Normal - Psychological Associated symptoms: Normal affect, Normal mood - Skin Skin Temperature: Warm - See musculoskeletal for further discussion on left hand Skin Moisture: Dry Skin Color: Normal Course - Re-evaluation Re-evalutation: 12/27/[address] Nascimento, ER attending. We discussed patient's presentation and how he is supposed to see Dr. Rowe on Tuesday. He suggest trying to obtain Doppler pulses and to call Dr. Rowe. Attempted to find pulses by Doppler but was not successful. Of important note his cap refill in his fingers to the left hand is approximately [address] Rowe, patient's wound care physician. We discussed patient's labs to include his normal white count, his reassuring vital signsshe is not febrile, not hypotensive, not tachypnea, not hypoxic, not tachycardic. Discussed x-ray reading which did not suggest any gas or osteo-in his remaining bone to the left middle finger. Dr. Rowe knows this patient well and saw him last week in his office. He thinks that it is reasonable to go ahead and start the patient on some clindamycin and have him see him outpatient on Tuesday. He suggest to go ahead and remove the remaining stitches and see if I cannot culture any discharge that comes from the stitches. He also suggest pain contro l. 2 sutures were removed from the wound and there was some slight purulent discharge. The discharge was cultured. Patient was given clindamycin and pain control here in the emergency department. Discussed with patient and his about conversation with Dr. Rowe and they agree. Have marked the redness on his hand. I have encouraged to return immediately if redness gets beyond the marking, any fevers, any worsening pain, duskiness or coolness of the fingers, or any other concerning symptoms. Patient and his agree with the plan. - Vital Signs Vital signs: Temp Pulse Resp BP Pulse Ox 98.0 F 51 L 16 162/40 H 98 12/27/18 14:25 12/27/18 14:25 12/27/18 14:25 12/27/18 14:25 12/27/18 14:25 - Laboratory Result Diagrams: 12/27/18 14:53 12/27/18 14:53 Laboratory results interpreted by me: 12/27/18 12/27/18 14:53 14:53 RBC 4.22 L Hgb 12.1 L MCHC 31.8 L RDW 24.0 H Lymphocytes % 9.6 L Eosinophils % 9.2 H Absolute Eosinophils 0.7 H Chloride 95 L Carbon Dioxide 33 H Creatinine 4.28 H Est GFR ( Amer) 17 L Est GFR (Non-Af Amer) 14 L Direct Bilirubin 0.5 H ALT 14 L Total Protein 8.8 H - Diagnostic Test Radiology reviewed: Image reviewed, Reports reviewed Discharge - Discharge Clinical Impression: Cellulitis of hand, left, Left hand pain, Peripheral arterial disease Condition: Stable Disposition: HOME, SELF-CARE Instructions: Cellulitis ([facility]), Peripheral Vascular Disease ([facility]) Additional Instructions: TAKE ALL ANTIBIOTICS PRESCRIBED. SEE DR. ROWE ON TUESDAY WITHOUT FAIL. RETURN HERE IF THE REDNESS INCREASES OUT OF THE AREA MARKED, IF YOU HAVE FEVERS, IF YOUR PAIN GETS WORSE, OR ANY OTHER CONCERNS. Prescriptions: Clindamycin HCl 300 mg PO TID #30 capsule Oxycodone HCl/Acetaminophen [Percocet 10-325 Mg Tablet] 1 each PO Q6H #10 tablet Referrals: GILDARDO AGUAYO NP, [facility] GENERAL COUNSEL [NURSE PRACTITIONER] - Follow up as needed
[2018-12-27] MEDS ORDERED: MORPHINE SULFATE 10 MG/ML INJ IM ONE (18:40)
[2018-12-27] MEDS ORDERED: HYDROMORPHONE HCL INJ/PF 2 MG/ML AMPULE IM ONE (19:06)
[2018-12-27] MEDS ORDERED: CLINDAMYCIN HCL 150 MG CAPSULE PO ONE (20:07)
[2018-12-27] MEDS ORDERED: HYDROMORPHONE HCL 2 MG TABLET PO ONE (20:28)
== END 2018-12-27 21:00 | disposition home or self-care (01) ==
LOC: ER 13:22
DX: L03.114 Cellulitis of left upper limb (principal); E11.51 Type 2 diabetes mellitus with diabetic peripheral angiopathy without gangrene; I12.0 Hypertensive chronic kidney disease with stage 5 chronic kidney disease or end stage renal disease; N18.6 End stage renal disease; E11.22 Type 2 diabetes mellitus with diabetic chronic kidney disease; Z99.2 Dependence on renal dialysis; Z89.022 Acquired absence of left finger(s); I25.10 Atherosclerotic heart disease of native coronary artery without angina pectoris; Z95.1 Presence of aortocoronary bypass graft
CPT/HCPCS: 99283; 96372; 36415; 87040; 87070; 87205; 85025; 87077; 80053; 87186; 73130; A9270 ×2; J1170

== ENCOUNTER 2019-01-01 14:56 | Emergency (ER) | payer MEDICARE ==
[2019-01-01] MEDS ORDERED: ASPIRIN 81 MG TABLET, CHEWABLE PO ONE (14:58)
[2019-01-01] MEDS ORDERED: OXYCODONE HCL IR 5 MG TABLET PO ONE (15:25)
--- NOTE | 2019-01-01 15:25 | ER Document Report ---
Addendum entered and electronically signed by LINDA MESSER DO 01/02/19 01:59: Course - Re-evaluation Re-evalutation: 01/02/19 01:59 Patient reevaluated just prior to transfer, flight team was at bedside. Patient stable for transfer. Repeat EKG was unchanged from initial. Laboratory 01/01/19 01/01/19 01/01/19 15:50 15:50 15:50 WBC 7.4 RBC 3.93 L Hgb 11.3 L Hct 35.4 L MCV 90 MCH 28.9 MCHC 32.0 RDW 23.9 H Plt Count 253 Seg Neutrophils % 67.4 Lymphocytes % 8.5 L Monocytes % 9.4 Eosinophils % 14.2 H Basophils % 0.5 Absolute Neutrophils 5.0 Absolute Lymphocytes 0.6 Absolute Monocytes 0.7 Absolute Eosinophils 1.1 H Absolute Basophils 0.0 APTT Sodium Cancelled Potassium Cancelled Chloride Cancelled Carbon Dioxide Cancelled Anion Gap Cancelled BUN Cancelled Creatinine Cancelled Est GFR ( Amer) Cancelled Est GFR (Non-Af Amer) Cancelled Glucose Cancelled Calcium Cancelled Total Bilirubin Cancelled Direct Bilirubin Cancelled Neonat Total Bilirubin Cancelled Neonat Direct Bilirubin Cancelled Neonat Indirect Bili Cancelled AST Cancelled ALT Cancelled Alkaline Phosphatase Cancelled Creatine Kinase Cancelled CK-MB (CK-2) Cancelled Troponin I Cancelled Total Protein Cancelled Albumin Cancelled 01/01/19 01/01/19 01/01/19 18:58 18:58 21:20 WBC RBC Hgb Hct MCV MCH MCHC RDW Plt Count Seg Neutrophils % Lymphocytes % Monocytes % Eosinophils % Basophils % Absolute Neutrophils Absolute Lymphocytes Absolute Monocytes Absolute Eosinophils Absolute Basophils APTT 66.3 H Sodium 137.9 Potassium 4.3 Chloride 95 L Carbon Dioxide 29 Anion Gap 14 BUN 24 H Creatinine 5.04 H Est GFR ( Amer) 14 L Est GFR (Non-Af Amer) 12 L Glucose 103 Calcium 8.9 Total Bilirubin 0.7 Direct Bilirubin 0.6 H Neonat Total Bilirubin Not Reportable Neonat Direct Bilirubin Not Reportable Neonat Indirect Bili Not Reportable AST 23 ALT 10 L Alkaline Phosphatase 110 Creatine Kinase 75 CK-MB (CK-2) 1.75 Troponin I 0.345 Total Protein 8.7 H Albumin 4.0 01/01/19 01/02/19 22:45 00:10 WBC RBC Hgb Hct MCV MCH MCHC RDW Plt Count Seg Neutrophils % Lymphocytes % Monocytes % Eosinophils % Basophils % Absolute Neutrophils Absolute Lymphocytes Absolute Monocytes Absolute Eosinophils Absolute Basophils APTT Sodium Potassium Chloride Carbon Dioxide Anion Gap BUN Creatinine Est GFR ( Amer) Est GFR (Non-Af Amer) Glucose Calcium Total Bilirubin Direct Bilirubin Neonat Total Bilirubin Neonat Direct Bilirubin Neonat Indirect Bili AST ALT Alkaline Phosphatase Creatine Kinase CK-MB (CK-2) Troponin I Cancelled 0.366 Total Protein Albumin 01/02/19 01:59 - Vital Signs Vital signs: Temp Pulse Resp BP Pulse Ox 13 143/50 H 96 01/02/19 01:31 01/02/19 01:31 01/02/19 01:31 - Laboratory Result Diagrams: 01/01/19 15:50 01/01/19 18:58 Laboratory results interpreted by me: 01/01/19 01/01/19 01/01/19 15:50 18:58 21:20 RBC 3.93 L Hgb 11.3 L Hct 35.4 L RDW 23.9 H Lymphocytes % 8.5 L Eosinophils % 14.2 H Absolute Eosinophils 1.1 H APTT 66.3 H Chloride 95 L BUN 24 H Creatinine 5.04 H Est GFR ( Amer) 14 L Est GFR (Non-Af Amer) 12 L Direct Bilirubin 0.6 H ALT 10 L Total Protein 8.7 H Original Note: ED General - General TRAVEL OUTSIDE OF THE [place] IN LAST 30 DAYS: No <CAITIE MESSER C - Last Filed: 01/01/19 20:44> <LINDA MESSER - Last Filed: 01/01/19 22:43> - General Chief Complaint: Chest Pain Stated Complaint: CHEST PAIN Time Seen by Provider: 01/01/19 15:06 Primary Care Provider: FEI ZULETA MD [Primary Care Provider] - Follow up as needed Notes: Patient is a 63-year-old male with CAD, end-stage renal disease on dialysis, GERD, hypertension and hyperlipidemia, and severe peripheral vascular disease that presents to the emergency department for chief complaint of chest pain and diaphoresis. Patient states he was at wound care to get hyperbaric treatment today, while he was there he developed chest pain, became short of breath and was diaphoretic, and they advised him to come to the emergency department. He felt a heavy pressure in the middle of his chest, lasted a few minutes and is since resolved. He did receive dialysis today, and a total of 4 L removed. He is complaining of pain at this time in his left hand where he had an amputation of his third digit, due to severe peripheral vascular disease. And notes that he was at wound care for. He currently rates the pain as a 9 out of 10 describes as a constant and throbbing sensation in his left hand. Denies any recent fevers, chills, night sweats, abdominal pain, nausea or vomiting. Past Medical History: End-stage renal disease on dialysis, peripheral vascular disease, hypertension, depression, GERD, diabetes mellitus Past Surgical History: Multiple amputations, right below the knee amputation, multiple toe amputations, left third digit amputation, CABG x3 Social History: Denies current tobacco, alcohol or drug use. Family History: Reviewed and noncontributory for presenting illness Allergies: Reviewed, see documented allergy list. REVIEW OF SYSTEMS: Other than noted above, the 12 point review of systems was reviewed with the patient and were negative, all pertinent findings are included in the HPI. PHYSICAL EXAMINATION: Vital signs reviewed, nursing noted reviewed. GENERAL: Chronically ill-appearing male, but no acute distress HEAD: Atraumatic, normocephalic. EYES: Eyes appear normal, extraocular movements intact, sclera anicteric, conjunctiva are normal. ENT: nares patent, oropharynx clear without exudates. Moist mucous membranes. NECK: Normal range of motion, supple without lymphadenopathy, no jvd LUNGS: Breath sounds clear to auscultation bilaterally and equal. No wheezes rales or rhonchi. HEART: Heart rate bradycardic, regular rhythm, no audible murmur ABDOMEN: Soft, nontender, normoactive bowel sounds. No rebound, guarding, or rigidity. No masses appreciated. EXTREMITIES: Right below-knee amputation, stump appears to be healing well, left middle finger amputation, there is some granulation tissue and a mild amount of drainage noted from the wound site. Distal pulses are intact, patient noted to have rubra of most of his digits, due to chronic peripheral vascular disease in both upper extremities. Cap refill is sluggish in most digits, which is chronic for this patient NEUROLOGICAL: No focal neurological deficits. Moves all extremities spontaneously Motor and sensory grossly intact on exam. PSYCH: Flat affect, otherwise normal, and answering questions appropriately, not agitated SKIN: Warm, Dry, normal turgor (CAITIE MESSER) - Related Data Allergies/Adverse Reactions: vancomycin [Vancomycin] Adverse Reaction (Unknown, Verified 12/27/18 19:16) molina syndrome morphine Adverse Reaction (Verified 12/27/18 19:16) Past Medical History - Social History Smoking Status: Former Smoker Family History: Reviewed & Not Pertinent, CAD, Hypertension, Malignancy - Past Medical History Cardiac Medical History: Reports: Hx Atrial Fibrillation, Hx Congestive Heart Failure, Hx Coronary Artery Disease, Hx Heart Attack - x 3,triple bypass in october, Hx Hypertension, Hx Peripheral Vascular Disease Pulmonary Medical History: Denies: Hx Asthma, Hx Bronchitis, Hx COPD, Hx Pneumonia Neurological Medical History: Denies: Hx Cerebrovascular Accident, Hx Seizures Endocrine Medical History: Reports: Hx Diabetes Mellitus Type 1, Hx Diabetes Charity litus Type 2 Renal/ Medical History: Reports: Hx End Stage Renal Disease - Dialysis dependent, Hx Hemodialysis, Hx Renal Insufficiency. Denies: Hx Peritoneal Dialysis GI Medical History: Reports: Hx Gastroesophageal Reflux Disease. Denies: Hx Hep atitis, Hx Hiatal Hernia, Hx Ulcer Musculoskeletal Medical History: Denies Hx Arthritis Skin Medical History: Denies Hx Psoriasis Psychiatric Medical History: Reports: Hx Depression Traumatic Medical History: Denies: Hx Traumatic Brain Injury Infectious Medical History: Denies: Hx Hepatitis Past Surgical History: Reports: Hx Cardiac Catheterization, Hx Cardiac Surgery - triple bypass, Hx Coronary Artery Bypass Graft - X3 vessel on October 26, 2017, Hx Orthopedic Surgery - Right big toe amputation in 2014, left third and fourth toe amputation, Hx Vascular Surgery, Other - Cervical laminectomy in 2012; right AKA. Denies: Hx Open Heart Surgery, Hx Pacemaker - Immunizations Hx Diphtheria, Pertussis, Tetanus Vaccination: Yes Hx Pneumococcal Vaccination: 02/05/15 <CAITIE MESSER - Last Filed: 01/01/19 20:44> - Vital signs Vitals: Pulse Ox 93 01/01/19 15:15 Course - Laboratory Result Diagrams: 01/01/19 15:50 01/01/19 18:58 <CAITIE MESSER - Last Filed: 01/01/19 20:44> - Laboratory Result Diagrams: 01/01/19 15:50 01/01/19 18:58 <LINDA MESSER - Last Filed: 01/01/19 22:43> - Re-evaluation Re-evalutation: Patient seen and examined vital signs reviewed. Laboratory data and imaging were ordered as appropriate for the patient's presenting symptoms and complaint, with consideration of any critical or life threatening conditions that may be associated with their obtained history and exam as noted above. Patient was treated with aspirin, oxycodone for his hand pain, and started on heparin infusion, once his troponin came back at 0.3, which is elevated from his baseline troponin level. Results were reviewed when available and demonstrated elevated troponin, EKG demonstrated T wave inversions in leads V2, V3, V4, with baseline artifact noted. This is compared with a prior EKG from 11/18/2018, where the T wave inversions seem to be more prominent, and a flipped T wave in V4. The patient was re-evaluated and was stable, still chest pain-free, started on the heparin, I did discuss his case with his primary care Dr. Zuleta who recommended transfer to higher level of care, or interventional cardiology is available if needed. Which is reasonable, given patient's strong history of advanced peripheral vascular disease, CABG, and end-stage renal disease on dialysis. He does seem to have new EKG changes as well. Evaluation was most consistent with NSTEMI I did call [facility] in [facility], however there on complete regional deferment, and not accepting any transfers at this time. Results were discussed with the patient at this point after careful consideration I feel that that patient should be transferred to [facility] due to need for interventional cardiology evaluation. This was discussed with the patient that it is in the best interest for their care to be transferred, the risks and benefits of transfer were discussed, including but not limited to clinical deterioration during transport, respiratory distress, and potential for traumatic injuries. Patient agreed with this plan of care. *Note is created using voice recognition software and may contain spelling, syntax or grammatical errors. Laboratory 01/01/19 01/01/19 01/01/19 15:50 15:50 15:50 WBC 7.4 RBC 3.93 L Hgb 11.3 L Hct 35.4 L MCV 90 MCH 28.9 MCHC 32.0 RDW 23.9 H Plt Count 253 Seg Neutrophils % 67.4 Lymphocytes % 8.5 L Monocytes % 9.4 Eosinophils % 14.2 H Basophils % 0.5 Absolute Neutrophils 5.0 Absolute Lymphocytes 0.6 Absolute Monocytes 0.7 Absolute Eosinophils 1.1 H Absolute Basophils 0.0 Sodium Cancelled Potassium Cancelled Chloride Cancelled Carbon Dioxide Cancelled Anion Gap Cancelled BUN Cancelled Creatinine Cancelled Est GFR ( Amer) Cancelled Est GFR (Non-Af Amer) Cancelled Glucose Cancelled Calcium Cancelled Total Bilirubin Cancelled Direct Bilirubin Cancelled Neonat Total Bilirubin Cancelled Neonat Direct Bilirubin Cancelled Neonat Indirect Bili Cancelled AST Cancelled ALT Cancelled Alkaline Phosphatase Cancelled Creatine Kinase Cancelled CK-MB (CK-2) Cancelled Troponin I Cancelled Total Protein Cancelled Albumin Cancelled 01/01/19 01/01/19 18:58 18:58 WBC RBC Hgb Hct MCV MCH MCHC RDW Plt Count Seg Neutrophils % Lymphocytes % Monocytes % Eosinophils % Basophils % Absolute Neutrophils Absolute Lymphocytes Absolute Monocytes Absolute Eosinophils Absolute Basophils Sodium 137.9 Potassium 4.3 Chloride 95 L Carbon Dioxide 29 Anion Gap 14 BUN 24 H Creatinine 5.04 H Est GFR ( Amer) 14 L Est GFR (Non-Af Amer) 12 L Glucose 103 Calcium 8.9 Total Bilirubin 0.7 Direct Bilirubin 0.6 H Neonat Total Bilirubin Not Reportable Neonat Direct Bilirubin Not Reportable Neonat Indirect Bili Not Reportable AST 23 ALT 10 L Alkaline Phosphatase 110 Creatine Kinase 75 CK-MB (CK-2) 1.75 Troponin I 0.345 Total Protein 8.7 H Albumin 4.0 Chest X-Ray 01/01/19 14:58 IMPRESSION: Improved aeration left base. Possible developing atelectasis or infiltrate the right base. (CAITIE MESSER) 01/01/19 22:43 Patient evaluated by myself. He is sitting up in bed. He currently is asymptomatic and not experience any chest pain. He is getting anxious to be transferred to [facility]. I have discussed patient's case with Dr. Sagastume who accepts patient for transfer. Repeat troponin has been obtained now. We will continue to monitor. Patient is stable for transfer at this time. (LINDA MESSER) - Vital Signs Vital signs: Temp Pulse Resp BP Pulse Ox 11 L 138/72 H 97 01/01/19 19:01 01/01/19 19:01 01/01/19 19:01 - Laboratory Laboratory results interpreted by me: 01/01/19 01/01/19 01/01/19 15:50 18:58 21:20 RBC 3.93 L Hgb 11.3 L Hct 35.4 L RDW 23.9 H Lymphocytes % 8.5 L Eosinophils % 14.2 H Absolute Eosinophils 1.1 H APTT 66.3 H Chloride 95 L BUN 24 H Creatinine 5.04 H Est GFR ( Amer) 14 L Est GFR (Non-Af Amer) 12 L Direct Bilirubin 0.6 H ALT 10 L Total Protein 8.7 H - EKG Interpretation by Me Additional EKG results interpreted by me: EKG demonstrates sinus rhythm with a ventricular rate of 57 bpm, first-degree AV block with right bundle branch block, left axis deviation, QTC prolonged at 530 ms, noted are T wave inversions in leads V2, V3, V4, and lead III, this is compared to prior EKG from 11/08/2018, were the T wave appears to be flipped in leads V3 and V4. 01/01/19 20:44 EKG #2 demonstrates sinus bradycardia with a ventricular rate of 53 bpm, again with first-degree AV block right bundle branch block, this is performed at 2038, demonstrated on this EKG, or T wave inversions in leads III, II, V2, V3 and V4 and now in V5, V5 inversion not present on his earlier EKG, performed at 1511 (CAITIE MESSER) Critical Care Note - Critical Care Note Total time excluding time spent on procedures (mins): 38 <CAITIE MESSER - Last Filed: 01/01/19 20:44> - Critical Care Note Comments: Critical care time 38 minutes exclusive from separate billable procedures for a patient requiring complex medical decision making, and high potential for clinical deterioration. In a patient with end-stage renal disease on dialysis, NSTEMI, requiring close monitoring, and transfer to higher level of care. Time spent obtaining history from patient or surrogate, discussions with consultants, development of treatment plan with patient or surrogate, evaluation of patient's response to treatment, examination of patient, ordering and performing treatments and interventions, ordering and review of laboratory studies, re- evaluation of patient's condition, ordering and review of radiographic studies and review of old charts (CAITIE MESSER) Discharge <CAITIE MESSER - Last Filed: 01/01/19 20:44> <LINDA MESSER - Last Filed: 01/01/19 22:43> - Discharge Clinical Impression: NSTEMI (non-ST elevated myocardial infarction), CKD (chronic kidney disease) stage V requiring chronic dialysis Chest pain Qualifiers: Chest pain type: unspecified Qualified Code(s): R07.9 - Chest pain, unspecified Condition: Stable Disposition: [facility] Referrals: FEI ZULETA MD [Primary Care Provider] - Follow up as needed
[2019-01-01 16:10] LABS: ABSOLUTE EOSINOPHILS # (AUTO) 1.1 10^3/uL (0.0-0.6); ABSOLUTE LYMPHOCYTES (AUTO) 0.6 10^3/uL (0.5-4.7); ABSOLUTE MONOCYTES (AUTO) 0.7 10^3/uL (0.1-1.4); BASOPHILS % (AUTO) 0.5 % (0-2); EOSINOPHILS % (AUTO) 14.2 % (0-6); HEMATOCRIT 35.4 % (37.9-51.0); HEMOGLOBIN 11.3 g/dL (13.5-17.0); LYMPHOCYTES % (AUTO) 8.5 % (13-45); MEAN CORPUSCULAR HEMOGLOBIN 28.9 pg (27.0-33.4); MEAN CORPUSCULAR VOLUME 90 fl (80-97); MONOCYTES % (AUTO) 9.4 % (3-13); PLATELET COUNT 253 10^3/uL (150-450); RED BLOOD COUNT 3.93 10^6/uL (4.35-5.55); RED CELL DISTRIBUTION WIDTH 23.9 % (11.5-14.0); SEGMENTED NEUTROPHILS % (AUTO) 67.4 % (42-78); TOTAL CELLS COUNTED % (AUTO) 100 %; WHITE BLOOD COUNT 7.4 10^3/uL (4.0-10.5)
--- NOTE | 2019-01-01 16:50 | RADIOLOGY REPORT (SQ) ---
EXAM DESCRIPTION: CHEST SINGLE VIEW COMPLETED DATE/TIME: 01/01/2019 4:34 pm REASON FOR STUDY: cp COMPARISON: 12/19/2018, 11/08/2018 EXAM PARAMETERS: NUMBER OF VIEWS: One view. TECHNIQUE: Single frontal radiographic view of the chest acquired. RADIATION DOSE: NA LIMITATIONS: None. FINDINGS: LUNGS AND PLEURA: Slight further resolution of the bandlike atelectasis or infiltrate the left base on the previous study. Possible developing minimal atelectasis or infiltrate right base. Round lucency right mid lung zone most likely represents a bleb rather than cavity. MEDIASTINUM AND HILAR STRUCTURES: No masses. Contour normal. HEART AND VASCULAR STRUCTURES: Heart normal in size. Normal vasculature. BONES: No acute findings. HARDWARE: None in the chest. OTHER: No other significant finding. IMPRESSION: Improved aeration left base. Possible developing atelectasis or infiltrate the right ba se. TECHNICAL DOCUMENTATION: JOB ID: [id number] [employer]- All Rights Reserved Reading location - IP/workstation name: [email or web address]
[2019-01-01] MEDS ORDERED: NORMAL SALINE 1000 ML 250 ML IV ONE (18:10)
[2019-01-01] MEDS ORDERED: ONDANSETRON HCL INJ/PF 4 MG/2 ML SDV IV ONE (18:10)
[2019-01-01 19:43] LABS: ALANINE AMINOTRANSFERASE 10 U/L (21-72); ALKALINE PHOSPHATASE 110 U/L (38-126); ANION GAP 14 (5-19); ASPARTATE AMINO TRANSFERASE 23 U/L (17-59); BILIRUBIN,DIRECT 0.6 mg/dL (0.0-0.4); BILIRUBIN,TOTAL 0.7 mg/dL (0.2-1.3); BLOOD UREA NITROGEN 24 mg/dL (7-20); CALCIUM 8.9 mg/dL (8.4-10.2); CARBON DIOXIDE 29 mmol/L (22-30); CHLORIDE 95 mmol/L (98-107); CREATINE KINASE 75 U/L (55-170); GLUCOSE 103 mg/dL (75-110); POTASSIUM 4.3 mmol/L (3.6-5.0); TOTAL PROTEIN 8.7 g/dL (6.3-8.2)
[2019-01-01 19:55] LABS: CREATINE KINASE MB 1.75 ng/mL (<4.55)
[2019-01-01 19:58] LABS: TROPONIN I 0.345 ng/mL
[2019-01-01] MEDS ORDERED: HEPARIN SODIUM,PORCINE/D5W 25,000 UNIT/250 ML RTUINJ IV PRN (20:20)
[2019-01-01] MEDS ORDERED: HEPARIN SOD (PORCINE) 1,000 UNIT/ML 10 ML VIAL IV ONE (20:20)
[2019-01-01] MEDS ORDERED: HEPARIN SOD (PORCINE) 1,000 UNIT/ML 10 ML VIAL IV PRN (22:00)
--- NOTE | 2019-01-01 23:58 | EKG REPORT ---
SEVERITY:- ABNORMAL ECG - SINUS RHYTHM FIRST DEGREE AV BLOCK RIGHT BUNDLE BRANCH BLOCK : Confirmed by: Shraddha Angel MD 01-Jan-2019 23:58:21
--- NOTE | 2019-01-01 23:59 | EKG REPORT ---
SEVERITY:- ABNORMAL ECG - SINUS RHYTHM FIRST DEGREE AV BLOCK RIGHT BUNDLE BRANCH BLOCK : Confirmed by: Shraddha Angel MD 01-Jan-2019 23:58:25
[2019-01-02 01:56] VITALS: BP 143/50
--- NOTE | 2019-01-02 17:37 | EKG REPORT ---
SEVERITY:- ABNORMAL ECG - SINUS RHYTHM FIRST DEGREE AV BLOCK RIGHT BUNDLE BRANCH BLOCK : Confirmed by: Shraddha Angel MD 02-Jan-2019 15:05:17
== END 2019-01-02 01:40 | disposition short-term general hospital (02) ==
LOC: ER 14:56
DX: I21.4 Non-ST elevation (NSTEMI) myocardial infarction (principal); R07.9 Chest pain, unspecified; E11.22 Type 2 diabetes mellitus with diabetic chronic kidney disease; I13.2 Hypertensive heart and chronic kidney disease with heart failure and with stage 5 chronic kidney disease, or end stage renal disease; I50.9 Heart failure, unspecified; N18.6 End stage renal disease; I48.91 Unspecified atrial fibrillation; Z99.2 Dependence on renal dialysis; Z95.1 Presence of aortocoronary bypass graft; Z89.611 Acquired absence of right leg above knee; I25.2 Old myocardial infarction
CPT/HCPCS: 93005 ×2; 99291; 96361; 96374; 96375; 36415; 82553; 82550; 85025; 85730; 80053; 84484; 71045; 93010 ×2; A9270 ×2; J1644; J2405; J7030

== ENCOUNTER → 2019-01-16 | Outpatient (CLI) | payer MEDICARE ==
--- NOTE | 2019-01-16 13:21 | RADIOLOGY REPORT (SQ) ---
EXAM DESCRIPTION: CHEST PA/LATERAL COMPLETED DATE/TIME: 01/16/2019 1:02 pm REASON FOR STUDY: COUGH COMPARISON: 01/01/2019 EXAM PARAMETERS: NUMBER OF VIEWS: two views TECHNIQUE: Digital Frontal and Lateral radiographic views of the chest acquired. RADIATION DOSE: NA LIMITATIONS: none FINDINGS: LUNGS AND PLEURA: Persistent bibasilar airspace disease. Left greater than right. Small effusions. MEDIASTINUM AND HILAR STRUCTURES: No masses or contour abnormalities. HEART AND VASCULAR STRUCTURES: Heart is enlarged. There is central vascular prominence. BONES: No acute findings. HARDWARE: Sternotomy wires are in place. OTHER: No other significant finding. IMPRESSION: Cardiomegaly probable vascular congestion. Findings have increased when compared to petra or study. There are small effusions. TECHNICAL DOCUMENTATION: JOB ID: [id number] [employer]- All Rights Reserved Reading location - IP/workstation name: [email or web address]
== END ==
LOC: OD 12:40
PROVIDERS: ATTEND Family Medicine
DX: J90 Pleural effusion, not elsewhere classified (principal); I51.7 Cardiomegaly; R05 Cough
CPT/HCPCS: 71046

== ENCOUNTER 2019-02-23 14:28 | Emergency (ER) | payer OTHER, MEDICARE ==
--- NOTE | 2019-02-23 14:59 | ER Document Report ---
ED Medical Screen (RME) - General Chief Complaint: Shortness Of Breath Stated Complaint: SHORT OF BREATH Time Seen by Provider: 02/23/19 14:52 Primary Care Provider: FEI ZULETA MD [Primary Care Provider] - Follow up as needed Mode of Arrival: Wheelchair Information source: Patient, Relative Notes: This 63-year-old diabetic patient presents emergency department with complaints of left hand pain. Patient reports recent amputation. He reports the pain is increasing. Makes him feel short of breath. Patient is currently being treated by Dr. Clay Smith for pain management reports his oxycodone is not helping. He was instructed to come to the emergency department if he was still hurting. No fevers vomiting diarrhea. I have greeted and performed a rapid initial assessment of this patient. A comprehensive ED assessment and evaluation of the patient, analysis of test results and completion of the medical decision making process will be conducted by additional ED providers. Dictation of this chart was performed using voice recognition software; therefore, there may be some unintended grammatical errors. TRAVEL OUTSIDE OF THE [place] IN LAST 30 DAYS: No - Related Data Allergies/Adverse Reactions: vancomycin [Vancomycin] Adverse Reaction (Unknown, Verified 02/23/19 14:30) molina syndrome morphine Adverse Reaction (Verified 02/23/19 14:30) Past Medical History - Past Medical History Cardiac Medical History: Reports: Hx Atrial Fibrillation, Hx Congestive Heart Failure, Hx Coronary Artery Disease, Hx Heart Attack - x 3,triple bypass in october, Hx Hypertension, Hx Peripheral Vascular Disease Pulmonary Medical History: Denies: Hx Asthma, Hx Bronchitis, Hx COPD, Hx Pneumonia Neurological Medical History: Denies: Hx Cerebrovascular Accident, Hx Seizures Endocrine Medical History: Reports: Hx Diabetes Mellitus Type 1, Hx Diabetes Mellitus Type 2 Renal/ Medical History: Reports: Hx End Stage Renal Disease - Dialysis dependent, Hx Hemodialysis, Hx Renal Insufficiency. Denies: Hx Peritoneal Dialysis GI Medical History: Reports: Hx Gastroesophageal Reflux Disease. Denies: Hx Hepatitis, Hx Hiatal Hernia, Hx Ulcer Musculoskeltal Medical History: Denies Hx Arthritis Skin Medical History: Denies Hx Psoriasis Psychiatric Medical History: Reports: Hx Depression Traumatic Medical History: Denies: Hx Traumatic Brain Injury Infectious Medical History: Denies: Hx Hepatitis Past Surgical History: Reports: Hx Cardiac Catheterization, Hx Cardiac Surgery - triple bypass, Hx Coronary Artery Bypass Graft - X3 vessel on October 26, 2017, Hx Orthopedic Surgery - Right big toe amputation in 2014, left third and fourth toe amputation, Hx Vascular Surgery, Other - Cervical laminectomy in 2012; right AKA. Denies: Hx Open Heart Surgery, Hx Pacemaker - Immunizations Hx Diphtheria, Pertussis, Tetanus Vaccination: Yes History of Influenza Vaccine for 03/2017 - 08/2017 Season: Yes Influenza Administration Date for 03/2017 - 08/2017 Season: 03/06/18 Physical Exam - Vital signs Vitals: Temp Pulse Resp BP Pulse Ox 98.6 F 64 16 133/69 H 94 02/23/19 14:30 02/23/19 14:30 02/23/19 14:30 02/23/19 14:30 02/23/19 14:30 Course - Vital Signs Vital signs: Temp Pulse Resp BP Pulse Ox 98.6 F 64 16 133/69 H 94 02/23/19 14:30 02/23/19 14:30 02/23/19 14:30 02/23/19 14:30 02/23/19 14:30 Doctor's Discharge - Discharge Referrals: FEI ZULETA MD [Primary Care Provider] - Follow up as needed
[2019-02-23 15:30] LABS: ABSOLUTE BASOPHILS # (AUTO) 0.1 10^3/uL (0.0-0.2); ABSOLUTE EOSINOPHILS # (AUTO) 0.2 10^3/uL (0.0-0.6); ABSOLUTE LYMPHOCYTES (AUTO) 0.4 10^3/uL (0.5-4.7); ABSOLUTE MONOCYTES (AUTO) 0.6 10^3/uL (0.1-1.4); ABSOLUTE NEUT (AUTO) 3.8 10^3/uL (1.7-8.2); BASOPHILS % (AUTO) 1.4 % (0-2); EOSINOPHILS % (AUTO) 4.6 % (0-6); HEMATOCRIT 30.7 % (37.9-51.0); HEMOGLOBIN 9.7 g/dL (13.5-17.0); LYMPHOCYTES % (AUTO) 8.7 % (13-45); MEAN CORPUSCULAR HGB CONC 31.6 g/dL (32.0-36.0); MEAN CORPUSCULAR VOLUME 92 fl (80-97); MONOCYTES % (AUTO) 12.1 % (3-13); PLATELET COUNT 180 10^3/uL (150-450); RED BLOOD COUNT 3.35 10^6/uL (4.35-5.55); RED CELL DISTRIBUTION WIDTH 24.6 % (11.5-14.0); SEGMENTED NEUTROPHILS % (AUTO) 73.2 % (42-78); TOTAL CELLS COUNTED % (AUTO) 100 %; WHITE BLOOD COUNT 5.1 10^3/uL (4.0-10.5)
--- NOTE | 2019-02-23 15:35 | RADIOLOGY REPORT (SQ) ---
EXAM DESCRIPTION: HAND LEFT 3 VIEWS COMPLETED DATE/TIME: 02/23/2019 3:19 pm REASON FOR STUDY: pain, recent amb COMPARISON: 12/27/2018, 12/19/2018, and 11/30/2018 EXAM PARAMETERS: NUMBER OF VIEWS: Three views. TECHNIQUE: AP, lateral and oblique radiographic images acquired of the left hand. LIMITATIONS: None. FINDINGS: MINERALIZATION: Focally diminished mineralization of the 3rd metacarpal head with similar, less pronounced finding seen of the 3rd digit proximal phalanx base. Patch that Otherwise stable. BONES: Status post 3rd digit amputation at the level of the proximal phalanx proximal diaphysis. No evidence of fracture or dislocation. JOINTS: No effusions. SOFT TISSUES: Increased circumferential soft tissue swelling. Lucency seen at the surgical site may represent subcutaneous gas. Re- demonstration of diffuse vascular calcifications. OTHER: No other significant finding. IMPRESSION: Increased soft tissue swelling overlying a largely demineralized 3rd metacarpal phalange al joint with cortical discontinuity, suggests osteomyelitis. Likely subcutaneous gas at the amputat ion site. TECHNICAL DOCUMENTATION: JOB ID: [id number]- All Rights Reserved Reading location - IP/workstation name: [email or web address]
[2019-02-23 15:48] LABS: ALBUMIN 3.9 g/dL (3.5-5.0); ALKALINE PHOSPHATASE 95 U/L (38-126); ANION GAP 11 (5-19); ASPARTATE AMINO TRANSFERASE 20 U/L (17-59); BILIRUBIN,DIRECT 0.5 mg/dL (0.0-0.4); BILIRUBIN,TOTAL 0.7 mg/dL (0.2-1.3); BLOOD UREA NITROGEN 23 mg/dL (7-20); CALCIUM 8.7 mg/dL (8.4-10.2); CARBON DIOXIDE 29 mmol/L (22-30); CHLORIDE 95 mmol/L (98-107); GLUCOSE 161 mg/dL (75-110); POTASSIUM 4.5 mmol/L (3.6-5.0); TOTAL PROTEIN 8.3 g/dL (6.3-8.2)
[2019-02-23 15:54] LABS: ANISOCYTOSIS 2+; HYPOCHROMASIA 1+; OVALOCYTES SLIGHT; PLATELET COMMENT ADEQUATE; POIKILOCYTOSIS SLIGHT
[2019-02-23 18:05] VITALS: BP 142/35
[2019-02-23] MEDS ORDERED: LIDOCAINE 2% URO-JET 5 ML KIT MM ONE (18:16)
--- NOTE | 2019-02-23 18:20 | ER Document Report ---
ED General - General Chief Complaint: Shortness Of Breath Stated Complaint: SHORT OF BREATH Time Seen by Provider: 02/23/19 14:52 Primary Care Provider: FEI ZULETA MD [Primary Care Provider] - Follow up as needed Mode of Arrival: Wheelchair Notes: 63-year-old male presents emergency department complaining of intractable pain to his fingers, particularly in his left third finger since a partial amputation 1 month ago in [place]. Patient cannot recall the physician's name. Patient is currently being treated through Dr. Clay Waite for pain management. Patient states he was told that if his pain persisted he should come to the emergency department. Patient also states that he has not followed up with Dr. Mendoza but has been going to wound care locally. States that on Tue the wound doc "cut bones inside his hand" but gave him no other feedback. Patient denies fevers, sweats, chills. Admits drainage and states he does not know how long it has been going on but states it has been quite some time. Biggest concern is the increased pain not just in his left third digit at the amputation site but also in the tips of his other fingers. Patient is a diabetic and a Tuesday dialysis patient. - Related Data Allergies/Adverse Reactions: vancomycin [Vancomycin] Adverse Reaction (Unknown, Verified 02/23/19 14:30) molina syndrome morphine Adverse Reaction (Verified 02/23/19 14:30) Past Medical History - General Information source: Patient, Relative - Social History Smoking Status: Former Smoker Frequency of alcohol use: None Drug Abuse: None Family History: Reviewed & Not Pertinent, CAD, Hypertension, Malignancy Patient has suicidal ideation: No Patient has homicidal ideation: No - Past Medical History Cardiac Medical History: Reports: Hx Atrial Fibrillation, Hx Congestive Heart Failure, Hx Coronary Artery Disease, Hx Heart Attack - x 3,triple bypass in october, Hx Hypertension, Hx Peripheral Vascular Disease Pulmonary Medical History: Denies: Hx Asthma, Hx Bronchitis, Hx COPD, Hx Pneumonia Neurological Medical History: Denies: Hx Cerebrovascular Accident, Hx Seizures Endocrine Medical History: Reports: Hx Diabetes Mellitus Type 1, Hx Diabetes Mellitus Type 2 Renal/ Medical History: Reports: Hx End Stage Renal Disease - Dialysis dependent, Hx Hemodialysis, Hx Renal Insufficiency. Denies: Hx Peritoneal Dialysis GI Medical History: Reports: Hx Gastroesophageal Reflux Disease. Denies: Hx Hepatitis, Hx Hiatal Hernia, Hx Ulcer Musculoskeletal Medical History: Denies Hx Arthritis Skin Medical History: Denies Hx Psoriasis Psychiatric Medical History: Reports: Hx Depression Traumatic Medical History: Denies: Hx Traumatic Brain Injury Infectious Medical History: Denies: Hx Hepatitis Past Surgical History: Reports: Hx Cardiac Catheterization, Hx Cardiac Surgery - triple bypass, Hx Coronary Artery Bypass Graft - X3 vessel on October 26, 2017, Hx Orthopedic Surgery - Right big toe amputation in 2014, left third and fourth toe amputation, Hx Vascular Surgery, Other - Cervical laminectomy in 2012; right AKA. Denies: Hx Open Heart Surgery, Hx Pacemaker - Immunizations Hx Diphtheria, Pertussis, Tetanus Vaccination: Yes Hx Pneumococcal Vaccination: 02/05/15 Review of Systems - Review of Systems Constitutional: No symptoms reported Musculoskeletal: See HPI Skin: See HPI -: Yes All other systems reviewed and negative Physical Exam - Vital signs Vitals: Temp Pulse Resp BP Pulse Ox 98.6 F 64 16 133/69 H 94 02/23/19 14:30 02/23/19 14:30 02/23/19 14:30 02/23/19 14:30 02/23/19 14:30 Interpretation: Normal - Notes Notes: GENERAL: Alert, interacts well. No acute distress. HEAD: Normocephalic, atraumatic EYES: Pupils equal, round and reactive to light, extraocular movements intact. ENT: Oral mucosa moist, tongue midline. NECK: Full range of motion, supple, trachea midline. LUNGS: Clear to auscultation bilaterally, no wheezes, rales or rhonchi, no respiratory distress. HEART: Regular rate and rhythm, no murmurs, gallops, rubs. ABDOMEN: Soft, nontender, nondistended, bowel sounds present in all 4 quadrants. NEUROLOGICAL: Alert and oriented x3, normal speech, biceps and patellar DTRs 2+ bilaterally. PSYCH: Normal mood, normal affect. SKIN: Warm, Dry, third digit of left hand is partially amputated below the PIP joint, remaining digit is erythematous, tender to palpation, mildly swollen but nonfluctuant, there is an open draining wound that is draining yellow thin discharge. Probing with a Q-tip probes to bone. 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 Course - Re-evaluation Re-evalutation: 02/23/19 18:20 CBC shows anemia with a hemoglobin of 9.7, this is acute on chronic anemia, platelets normal, no leukocytosis, ESR and CRP are both elevated at 59 and greater than 15 respectively. The CRP is high-sensitivity. There is chronic renal failure consistent with end-stage renal disease. Glucose is 161. Wound culture of the left middle finger was sent after the area was cleansed with alcohol and new drainage was expressed. Hand x-ray shows post amputation changes and likely osteomyelitis of the third metacarpal phalangeal joint. The subcutaneous air at the amputation site seen on x-ray is not actually subcutaneous air it is an open wound. There is no evidence of necrotizing fasciitis at this time. Discussed the case with Dr. Mendoza the vascular surgeon from [facility] who performed the surgery and as there is no sign of sepsis, no fever no leukocytosi s he is agreeable to placing the patient on oral Augmentin and discharged home, he will follow-up with patient on Tuesday after his dialysis session. Patient is agreeable to this plan as well and will return for fever or confusion. - Vital Signs Vital signs: Temp Pulse Resp BP Pulse Ox 98.6 F 64 17 142/35 H 96 02/23/19 14:30 02/23/19 14:30 02/23/19 18:01 02/23/19 18:01 02/23/19 18:01 - Laboratory Result Diagrams: 02/23/19 15:04 02/23/19 15:04 Laboratory results interpreted by me: 02/23/19 02/23/19 02/23/19 15:04 15:04 15:04 RBC 3.35 L Hgb 9.7 L Hct 30.7 L MCHC 31.6 L RDW 24.6 H Lymph % (Auto) 8.7 L Absolute Lymphs (auto) 0.4 L ESR 59 H Sodium 134.9 L Chloride 95 L BUN 23 H Creatinine 5.06 H Est GFR ( Amer) 14 L Est GFR (MDRD) Non-Af 12 L Glucose 161 H Direct Bilirubin 0.5 H C-React Prot High Sens Total Protein 8.3 H 02/23/19 15:04 RBC Hgb Hct MCHC RDW Lymph % (Auto) Absolute Lymphs (auto) ESR Sodium Chloride BUN Creatinine Est GFR ( Amer) Est GFR (MDRD) Non-Af Glucose Direct Bilirubin C-React Prot High Sens > 15.0000 H Total Protein Discharge - Discharge Clinical Impression: Osteomyelitis left third MCP joint, CKD (chronic kidney disease) stage V requiring chronic dialysis, Cellulitis of left middle finger Osteomyelitis Qualifiers: Osteomyelitis type: unspecified type Osteomyelitis location: hand Laterality: left Qualified Code(s): M86.9 - Osteomyelitis, unspecified Condition: Stable Disposition: HOME, SELF-CARE Additional Instructions: Please take the Augmentin which is an antibiotic as directed until it is gone. Please follow-up with Dr. Mendoza's office in [place] on Tuesday after dialysis. Please do not miss this appointment. You will need another surgery to help get rid of the infection in your bone. If you missed the appointment your infection could worsen and you could . Please return to the emergency department for fevers or any new or concerning symptoms. Please start taking your gabapentin 100 milligrams twice a day for the next 3 days then increase to 3 times a day if you are still having pain. I have also written for lidocaine jelly/cream which you can apply to the tip of that left finger once a day for pain. Prescriptions: Amox Tr/Potassium Clavulanate [Augmentin 875-125 Tablet] 1 tab PO BID 10 Days tablet Lidocaine 15 gm TP DAILY #1 cream..g. Gabapentin [Neurontin 100 mg Capsule] 100 mg PO TID #30 capsule Referrals: FEI ZULETA MD [Primary Care Provider] - Follow up as needed MAKENZIE MENDOZA MD [NO LOCAL MD] - 02/26/19
--- NOTE | 2019-02-23 21:34 | PDOC CONSULTATION ---
Consultation Consult Date: 02/23/19 Provider Consulted: TRACIE HUNT JR History of Present Illness Admission Date/PCP: FEI ZULETA MD History of Present Illness: CHAPITO LESLIE is a 63 year old male who presents with left hand pain, swelling and drainage. He and a family member are present but both are poor historians. They are not sure when he had surgery, with whom, but he had an amputation 2-3 months ago of his left middle finger at the PIP. (after searching the chart, it was with a vascular surgeon in [place]). Since that time he has been following with wound care in [place]. He said he followed with his surgeon on one occasion but cannot recall what was discussed with that plan and why he has not followed up since. He has necrosis of all fingertips and he does not know why though it is likely associated with his CKD on dialysis. He reports significant pain that prevents him from sleeping and is not responding to over the counter pain medication. He denies fevers, chills. He said that he last saw his wound care about a week ago but cannot describe the progression since that time or what it looked like then. Past Medical History Cardiac Medical History: Reports: Atrial Fibrillation, Congestive Heart Failure, Coronary Artery Disease, Myocardial Infarction - x 3,triple bypass in october, Hypertension, Peripheral Vascular Disease Pulmonary Medical History: Denies: Asthma, Bronchitis, Chronic Obstructive Pulmonary Disease (COPD), Pneumonia Neurological Medical History: Denies: Seizures Endocrine Medical History: Reports: Diabetes Mellitus Type 1, Diabetes Mellitus Type 2 Renal/ Medical History: Reports: End Stage Renal Disease - Dialysis dependent GI Medical History: Reports: Gastroesophageal Reflux Disease Denies: Hepatitis, Hiatal Hernia Musculoskeltal Medical History: Denies: Arthritis Skin Medical History: Denies: Psoriasis Psychiatric Medical History: Reports: Depression Traumatic Medical History: Denies: Traumatic Brain Injury Hematology: Past Surgical History Past Surgical History: Reports: Cardiac Catheterization, Coronary Artery Bypass Graft - X3 vessel on October 26, 2017, Orthopedic Surgery - Right big toe amputation in 2014, left third and fourth toe amputation, Vascular Surgery, Other - Cervical laminectomy in 2012; right AKA Denies: Pacemaker Social History Information Source: Patient Smoking Status: Former Smoker Frequency of Alcohol Use: Rare Hx Recreational Drug Use: No Drugs: None Hx Prescription Drug Abuse: No Family History Family History: Reviewed & Not Pertinent, CAD, Hypertension, Malignancy Parental Family History Reviewed: No Children Family History Reviewed: No Sibling(s) Family History Reviewed.: No Medication/Allergy Home Medications: Acetaminophen [Tylenol 325 mg Tablet] 650 mg PO Q4HP PRN 11/30/18 Amino AC/Protein Hydr/Whey Pro [Prosource Plus Liquid Packet] 30 ml PO BID 11/30/18 Amiodarone HCl [Pacerone] 200 mg PO QAM 11/30/18 Apixaban [Eliquis 2.5 mg Tablet] 2.5 mg PO BID 11/30/18 Aspirin [Aspirin 81 mg Chewable Tablet] 81 mg PO QAM 11/30/18 Atorvastatin Calcium [Lipitor 40 mg Tablet] 40 mg PO QHS 11/30/18 Calcium Acetate [Phoslo 667 mg Capsule] 667 mg PO MEALS 11/30/18 Cefepime 2 gm/D5w RTU [Maxipime RTU 2 gm-D5w 50 ml Premix Bag] 2 gm IV MOWEFR MDD AFTER HD 11/30/18 Clindamycin HCl [Cleocin 300 mg Capsule] 300 mg PO Q8 MDD X5DAYS 11/30/18 Clopidogrel Bisulfate [Plavix 75 mg Tablet] 75 mg PO QAM 11/30/18 Doxercalciferol [Hectorol] 5 mcg IV MOWEFR 11/30/18 Gabapentin [Neurontin 100 mg Capsule] 100 mg PO Q12 11/30/18 Ibuprofen 200 mg PO Q8HP PRN 11/30/18 Lactulose [Constulose 10 gm/15 mL Oral Solution] 20 gm PO QAM 11/30/18 Midodrine HCl [Proamatine 5 mg Tablet] 2.5 mg PO TID MDD HOLD FOR SBP 130 11/30/18 Mirtazapine [Remeron] 30 mg PO QHS 11/30/18 Nitroglycerin [Nitrostat 0.4 mg (1/150 Gr) Tabs 25/Bottle] 0.4 mg SL Q5MP PRN 11/30/18 Ondansetron HCl [Zofran 4 mg Tablet] 4 mg PO Q6HP PRN 11/30/18 Oxycodone HCl [Oxycodone HCl 10 MG Tablet] 10 mg PO Q8HP PRN 11/30/18 Sennosides/Docusate 8.6-50 mg [Senna Plus Tablet] 1 tab PO BIDP PRN 11/30/18 Sodium Thiosulfate Inj 1 gm SQ DAILY 11/30/18 Clindamycin HCl 300 mg PO TID #30 capsule 12/27/18 Oxycodone HCl/Acetaminophen [Percocet 10-325 Mg Tablet] 1 each PO Q6H #10 tablet 12/27/18 Amox Tr/Potassium Clavulanate [Augmentin 875-125 Tablet] 1 tab PO BID 10 Days tablet 02/23/19 Gabapentin [Neurontin 100 mg Capsule] 100 mg PO TID #30 capsule 02/23/19 Lidocaine 15 gm TP DAILY #1 cream..g. 02/23/19 Allergies/Adverse Reactions: vancomycin [Vancomycin] Adverse Reaction (Unknown, Verified 02/23/19 14:30) molina syndrome morphine Adverse Reaction (Verified 02/23/19 14:30) Review of Systems Constitutional: ABSENT: anorexia Ears: ABSENT: hearing changes Nose, Mouth, and Throat: ABSENT: sore throat Cardiovascular: ABSENT: chest pain Respiratory: ABSENT: cough Gastrointestinal: ABSENT: abdominal pain Genitourinary: ABSENT: difficulty urinating Musculoskeletal: PRESENT: deformity Integumentary: PRESENT: erythema, wounds Neurological: PRESENT: numbness Psychiatric: ABSENT: anxiety Endocrine: ABSENT: heat intolerance Hematologic/Lymphatic: PRESENT: easy bruising Physical Exam Vital Signs: Temp Pulse Resp BP Pulse Ox 98.6 F 64 17 142/35 H 96 02/23/19 14:30 02/23/19 14:30 02/23/19 18:01 02/23/19 18:01 02/23/19 18:01 Intake & Output 02/22/19 02/23/19 02/24/19 06:59 06:59 06:59 Weight 77.111 kg Physical Exam: General appearance: PRESENT: no acute distress, cooperative, well-nourished Head exam: PRESENT: atraumatic, normocephalic Eye exam: PRESENT: EOMI Ear exam: PRESENT: normal external ear exam Mouth exam: PRESENT: neck supple Neck exam: ABSENT: tracheal deviation Respiratory exam: PRESENT: symmetrical, unlabored. ABSENT: accessory muscle use, wheezes Pulses: PRESENT: normal radial pulses GI/Abdominal exam: ABSENT: distended, firm Extremities exam: PRESENT: Amputated RLE Above knee Musculoskeletal exam: PRESENT: full ROM, normal inspection Neurological exam: PRESENT: alert, awake, oriented to person, oriented to place, oriented to time Psychiatric exam: PRESENT: appropriate affect. ABSENT: agitated Focused psych exam: ABSENT: catatonic Skin exam: PRESENT: intact. ABSENT: dry All as above aside from that noted in the HPI and the following: Diffuse Swelling about the 3rd MCP on the left. Amputation at the 3rd PIP on the left with an open wound with purulent drainage. Much tenderness to MCP with limited ROM due to pain. No proximal tracking of erythema. Diffuse necrosis to all fingertips. Results Laboratory Results: 02/23/19 15:04 02/23/19 15:04 02/23/19 02/23/19 15:04 15:04 WBC 5.1 RBC 3.35 L Hgb 9.7 L Hct 30.7 L MCV 92 MCH 29.0 MCHC 31.6 L RDW 24.6 H Plt Count 180 Seg Neutrophils % 73.2 Sodium 134.9 L Potassium 4.5 Chloride 95 L Carbon Dioxide 29 Anion Gap 11 BUN 23 H Creatinine 5.06 H Est GFR ( Amer) 14 L Glucose 161 H Calcium 8.7 Total Bilirubin 0.7 AST 20 Alkaline Phosphatase 95 Total Protein 8.3 H Albumin 3.9 Impressions: Hand X-Ray 02/23/19 14:58 IMPRESSION: Increased soft tissue swelling overlying a largely demineralized 3rd metacarpal phalangeal joint with cortical discontinuity, suggests osteomyeli tis. Likely subcutaneous gas at the amputation site. Assessment & Plan - Diagnosis (1) CAD (coronary artery disease) Qualifiers: Coronary Disease-Associated Artery/Lesion type: unspecified vessel or lesion type [place] vs. transplanted heart: [place] heart Associated angina: with unstable angina Qualified Code(s): I25.110 - Atherosclerotic heart disease of [place] coronary artery with unstable angina pectoris (8) Osteomyelitis Qualifiers: Osteomyelitis type: unspecified type Osteomyelitis location: hand Laterality: left Qualified Code(s): M86.9 - Osteomyelitis, unspecified Plan: At this time the patient does not appear septic and the wound drainage has been chronic. I discussed with the ER provider that I would be happy to follow the patient while in house if he were admitted, and if operative management was needed urgently, I would provide care. The primary surgeon was contacted and he provided suggestion and at this time is planning to follow the patient on Tuesday. - He was placed on Augmentin until follow up.
== END 2019-02-23 18:34 | disposition home or self-care (01) ==
LOC: ER 14:28
DX: M86.142 Other acute osteomyelitis, left hand (principal); M86.9 Osteomyelitis, unspecified; I13.2 Hypertensive heart and chronic kidney disease with heart failure and with stage 5 chronic kidney disease, or end stage renal disease; E11.22 Type 2 diabetes mellitus with diabetic chronic kidney disease; N18.5 Chronic kidney disease, stage 5; I50.9 Heart failure, unspecified; Z99.2 Dependence on renal dialysis; R06.02 Shortness of breath; Z87.891 Personal history of nicotine dependence; I25.10 Atherosclerotic heart disease of native coronary artery without angina pectoris; I48.91 Unspecified atrial fibrillation
CPT/HCPCS: 99285; 36415; 87070; 87205; 85025; 85652; 87077; 80053; 87186; 86141; 73130; J3490

== ENCOUNTER 2019-03-12 07:00 | Inpatient (IN) | payer OTHER, MEDICARE ==
[2019-03-12 08:20] LABS: HEMATOCRIT 31.3 % (37.9-51.0); HEMOGLOBIN 9.8 g/dL (13.5-17.0); MEAN CORPUSCULAR HEMOGLOBIN 29.8 pg (27.0-33.4); MEAN CORPUSCULAR HGB CONC 31.4 g/dL (32.0-36.0); MEAN CORPUSCULAR VOLUME 95 fl (80-97); PLATELET COUNT 145 10^3/uL (150-450); RED BLOOD COUNT 3.29 10^6/uL (4.35-5.55); RED CELL DISTRIBUTION WIDTH 24.4 % (11.5-14.0); WHITE BLOOD COUNT 4.8 10^3/uL (4.0-10.5)
[2019-03-12 08:26] LABS: VENOUS BLOOD BASE EXCESS -11.1 mmol/L; VENOUS BLOOD HCO3 16.8 mmol/L (20-32); VENOUS BLOOD PCO2 44.6 mmHg (35-63)
[2019-03-12 08:29] LABS: VENOUS BLOOD PH 7.19 (7.30-7.42)
[2019-03-12 08:37] LABS: ABSOLUTE LYMPHOCYTES# (MANUAL) 0.6 10^3/uL (0.5-4.7); ABSOLUTE MONOCYTES # (MANUAL) 0.6 10^3/uL (0.1-1.4); BASOPHILS % (MANUAL) 3 % (0-2); EOSINOPHILS % (MANUAL) 4 % (0-6); LYMPHOCYTES % (MANUAL) 12 % (13-45); MONOCYTES % (MANUAL) 12 % (3-13); SEGMENTED NEUTROPHILS % (MAN) 69 % (42-78); TOTAL CELLS COUNTED 100
[2019-03-12 08:38] LABS: ALBUMIN 4.4 g/dL (3.5-5.0); ALKALINE PHOSPHATASE 99 U/L (38-126); ANION GAP 18 (5-19); ASPARTATE AMINO TRANSFERASE 22 U/L (17-59); BILIRUBIN,DIRECT 0.7 mg/dL (0.0-0.4); BILIRUBIN,TOTAL 0.8 mg/dL (0.2-1.3); BLOOD UREA NITROGEN 60 mg/dL (7-20); CALCIUM 8.5 mg/dL (8.4-10.2); CARBON DIOXIDE 19 mmol/L (22-30); CHLORIDE 98 mmol/L (98-107); CREATINE KINASE 153 U/L (55-170); GLUCOSE 93 mg/dL (75-110); TOTAL PROTEIN 9.3 g/dL (6.3-8.2)
[2019-03-12 08:39] LABS: ANISOCYTOSIS 3+; OVALOCYTES SLIGHT; PLATELET COMMENT DECREASED; POIKILOCYTOSIS SLIGHT; POLYCHROMASIA SLIGHT
[2019-03-12 08:48] LABS: POTASSIUM 7.1 mmol/L (3.6-5.0)
--- NOTE | 2019-03-12 08:52 | ER Document Report ---
Entered by HUSEYIN GOMEZ SCRIBE 03/12/19 0736 Acting as scribe for:ANDREA KURTZ MD ED General - General Chief Complaint: Fall Stated Complaint: FALL, ALETERED MENTAL STATUS Time Seen by Provider: 03/12/19 07:28 Primary Care Provider: FEI BAEZ MD [Primary Care Provider] - Follow up as needed Mode of Arrival: Medic Information source: Patient, Emergency Med Personnel Cannot obtain history due to: Other - Patient does not remember what happened Notes: 63-year-old male who presents to the emergency department today secondary to a fall according to EMS. Patient states that he feels "okay". Patient states he does not remember the fall or anything that occurred prior to arrival. Patient is a very poor historian and answers all questions with vague answers such as "might have" and "i guess so". EMS run sheet mentions "confusion starting last night" per family. Patient denies any shortness of breath. Patient is a MWF dialysis patient, stating he usually goes at 7 in the morning. Patient did not go to dialysis today. The patient's family arrived. The spouse reports that she has to help him to the restroom at night. She states that 2 nights ago he was up multiple times to the bathroom for diarrhea. She states he was not up to the bathroom last night. The patient woke up while we were talking, and stated that he went to the bathroom several times last night that he went by himself by hopping on his one foot and leaning against the wall. The states that he is not capable of d oing that, she pushes him in a wheelchair to the bathroom and then he gets up and hops only a very short distance to get to the sink and toilet. She also tells me that he did not go to dialysis Tuesday. This morning the patient's found him on the floor and there bedroom and he was somnolent. She called her son who came over and helped pick him up and placed him back in the bed. She states she did not seem to really get fully awake at all during that time. TRAVEL OUTSIDE OF THE [place] IN LAST 30 DAYS: No - Related Data Allergies/Adverse Reactions: erythromycin base Allergy (Verified 03/12/19 07:04) vancomycin [Vancomycin] Adverse Reaction (Unknown, Verified 03/12/19 07:04) molina syndrome morphine Adverse Reaction (Verified 03/12/19 07:04) Past Medical History - General Information source: Patient, [facility] Records - Social History Smoking Status: Unknown if Ever Smoked Frequency of alcohol use: None Drug Abuse: None Occupation: unemployed Lives with: Family Family History: Reviewed & Not Pertinent, CAD, Hypertension, Malignancy Patient has suicidal ideation: No Patient has homicidal ideation: No - Past Medical History Cardiac Medical History: Reports: Hx Atrial Fibrillation, Hx Congestive Heart Failure, Hx Coronary Artery Disease, Hx Heart Attack - x3, Hx Hypertension, Hx Peripheral Vascular Disease Endocrine Medical History: Reports: Hx Diabetes Mellitus Type 1, Hx Diabetes Mellitus Type 2 Renal/ Medical History: Reports: Hx End Stage Renal Disease, Hx Hemodialysis GI Medical History: Reports: Hx Gastroesophageal Reflux Disease Psychiatric Medical History: Reports: Hx Depression Past Surgical History: Reports: Hx Cardiac Catheterization, Hx Coronary Artery Bypass Graft - X3 vessel on October 26, 2017, Hx Orthopedic Surgery - R great toe amp. L 3rd/4th toe amp. R BKA. L 3rd finger amp., Hx Vascular Surgery, Other - Cervical laminectomy in 2012 - Immunizations Hx Diphtheria, Pertussis, Tetanus Vaccination: Yes Hx Pneumococcal Vaccination: 02/05/15 Review of Systems - Review of Systems -: Yes ROS unobtainable due to patient's medical condition - states he does not remember anything Physical Exam - Vital signs Vitals: Temp Pulse Resp BP Pulse Ox 98.6 F 57 L 18 148/34 H 94 03/12/19 07:13 03/12/19 07:13 03/12/19 07:13 03/12/19 07:13 03/12/19 07:13 - Notes Notes: Physical Exam: General: Somnolent but arousable. Sleeping, wakes up and converses appropriately, then nods off again. HEENT: Normocephalic. Atraumatic. PERRL. Extraocular movements intact. Oropharynx clear. Neck: Supple. Non-tender. Respiratory: No respiratory distress. Clear and equal breath sounds bilaterally. Cardiovascular: Slightly irregular, not tachycardic. Abdominal: Normal Inspection. Non-tender. No distension. Normal Bowel Sounds. Back: No gross abnormalities. Extremities: Upper extremities: Left third finger amputation. Wound vac on left hand. Left hand is somewhat swollen. The right volar fingertips have scaling and blistering away of the epidermis with the appearance of significant peripheral vascular disease. Lower extremities: Right BKA. Neurological: Normal cognition. AAOx3. Normal speech. No motor deficits noted. Psychological: Normal affect. Normal Mood. Skin: See extremity exam Course - Vital Signs Vital signs: Temp Pulse Resp BP Pulse Ox 98.6 F 57 L 11 L 155/34 H 100 03/12/19 07:13 03/12/19 07:13 03/12/19 10:14 03/12/19 10:14 03/12/19 10:14 - Laboratory Result Diagrams: 03/12/19 07:53 03/12/19 07:53 Laboratory results interpreted by me: 03/12/19 03/12/19 03/12/19 07:53 07:53 07:53 RBC 3.29 L Hgb 9.8 L Hct 31.3 L MCHC 31.4 L RDW 24.4 H Plt Count 145 L Lymphocytes % (Manual) 12 L Basophils % (Manual) 3 H VBG pH 7.19 L* VBG HCO3 16.8 L Sodium 135.4 L Potassium 7.1 H* Carbon Dioxide 19 L BUN 60 H Creatinine 13.78 H Est GFR ( Amer) 4 L Est GFR (MDRD) Non-Af 4 L Direct Bilirubin 0.7 H Total Protein 9.3 H - EKG Interpretation by Me EKG shows normal: [place], Intervals, QRS Complexes, ST-T Waves Rhythm: A.Fib [place]/QRS: RBBB - Consults Dr. Elizondo Consulted provider: will see as inpatient - Will be able to dialyze the patient as soon as he is admitted to the hospital. Dr. Baez Consulted provider: will see as inpatient - Will accept the patient so that he can get dialyzed, and then continue the work-up for his lethargy and syncope. Critical Care Note - Critical Care Note Total time excluding time spent on procedures (mins): 45 Discharge - Discharge Clinical Impression: Hyperkalemia, Chronic atrial fibrillation, CKD (chronic kidney disease) stage V requiring chronic dialysis Anemia in chronic kidney disease (CKD) Qualifiers: Chronic kidney disease stage: on chronic dialysis Qualified Code(s): N18.6 - End stage renal disease Altered mental status Qualifiers: Altered mental status type: unspecified Qualified Code(s): R41.82 - Altered mental status, unspecified Disposition: ADMITTED INPATIENT Admitting Provider: [facility] Admitted: Telemetry Referrals: FEI BAEZ MD [Primary Care Provider] - Follow up as needed Scribe Attestation: 03/12/19 08:05 I personally performed the services described in the documentation, reviewed and edited the documentation which was dictated to the scribe in my presence, and it accurately records my words and actions. I personally performed the services described in the documentation, reviewed and edited the documentation which was dictated to the scribe in my presence, and it accurately records my words and actions.
[2019-03-12] MEDS ORDERED: SODIUM BICARBONATE 8.4% INJ 50 MEQ/50 ML DISP.SYRIN IV ONE (08:53)
[2019-03-12] MEDS ORDERED: SODIUM POLYSTYRENE SULFONATE 15 GM/60 ML PO ONE (08:53)
[2019-03-12] MEDS ORDERED: CALCIUM GLUCONATE 1000 MG/10 ML INJ IV ONE (08:53)
[2019-03-12] MEDS ORDERED: ALBUTEROL SULFATE 0.083% NEB 2.5 MG/3 ML AMPUL NEB ONE (08:54)
[2019-03-12] MEDS ORDERED: IPRATROPIUM/ALBUTEROL 0.5-2.5 MG/3 ML AMPUL NEB PRN (12:02)
[2019-03-12] MEDS ORDERED: ACETAMINOPHEN 325 MG TABLET PO PRN (12:02)
[2019-03-12] MEDS ORDERED: ONDANSETRON HCL INJ/PF 4 MG/2 ML SDV IV PRN (12:02)
--- NOTE | 2019-03-12 12:23 | RADIOLOGY REPORT (SQ) ---
EXAM DESCRIPTION: CHEST SINGLE VIEW COMPLETED DATE/TIME: 03/12/2019 11:40 am REASON FOR STUDY: ESRD, hyperkalemia COMPARISON: 01/16/2019 EXAM PARAMETERS: NUMBER OF VIEWS: One view. TECHNIQUE: Single frontal radiographic view of the chest acquired. RADIATION DOSE: NA LIMITATIONS: None. FINDINGS: LUNGS AND PLEURA: Subsegmental atelectasis in the left base. No acute infiltrate, effusio n, or mass. MEDIASTINUM AND HILAR STRUCTURES: No masses. Contour normal. HEART AND VASCULAR STRUCTURES: Cardiomegaly. BONES: No acute findings. HARDWARE: None in the chest. OTHER: No other significant finding. IMPRESSION: Cardiomegaly without pulmonary edema. Subsegmental atelectasis. TECHNICAL DOCUMENTATION: JOB ID: [id number] [employer]- All Rights Reserved Reading location - IP/workstation name: [email or web address]
--- NOTE | 2019-03-12 13:13 | RADIOLOGY REPORT (SQ) ---
EXAM DESCRIPTION: CT HEAD WITHOUT COMPLETED DATE/TIME: 03/12/2019 1:03 pm REASON FOR STUDY: ams COMPARISON: 10/19/2017 TECHNIQUE: Axial images acquired through the brain without intravenous contrast. Images reviewed wi th bone, brain and subdural windows. Additional sagittal and coronal reconstructions were generated. Images stored on PACS. All CT scanners at this facility use dose modulation, iterative reconstruction, and/or weight based d osing when appropriate to reduce radiation dose to as low as reasonably achievable (ALARA). [facility]: Dose Right [facility]: CareDose [facility]: Dose Right [facility]: Teradose 4D [facility]: Smart DipJar RADIATION DOSE: CT Rad equipment meets quality standard of care and radiation dose reduction techniq ues were employed. CTDIvol: 53.2 mGy. DLP: 1044 mGy-cm. mGy. LIMITATIONS: None. FINDINGS: VENTRICLES: Normal size and contour. CEREBRUM: No masses. No hemorrhage. No midline shift. No evidence for acute infarction. Normal gra y/white matter differentiation. No areas of low density in the white matter. CEREBELLUM: No masses. No hemorrhage. No alteration of density. No evidence for acute infarction. EXTRAAXIAL SPACES: No fluid collections. No masses. ORBITS AND GLOBE: No intra- or extraconal masses. Normal contour of globe without masses. CALVARIUM: No fracture. PARANASAL SINUSES: No fluid or mucosal thickening. SOFT TISSUES: No mass or hematoma. Extensive vascular calcinosis. OTHER: No other significant finding. IMPRESSION: No acute intracranial pathology. EVIDENCE OF ACUTE STROKE: NO. COMMENT: Quality ID # [id number]: Final reports with documentation of one or more dose reduction techniques (e.g., Automated exposure control, adjustment of the mA and/or kV according to patient size, use of iterative reconstruction technique) TECHNICAL DOCUMENTATION: JOB ID: [id number] [email or web address]- All Rights Reserved Reading location - IP/workstation name: [email or web address]
[2019-03-12] MEDS ORDERED: EPOETIN ALFA-EPBX 10,000 UNIT in SYRINGE, DISPOSABLE, 1 EACH IV PRN (13:14)
[2019-03-12] MEDS ORDERED: NORMAL SALINE 1000 ML 1,000 ML IV PRN (13:14)
--- NOTE | 2019-03-12 13:16 | EKG REPORT ---
SEVERITY:- ABNORMAL ECG - ATRIAL FIBRILLATION RIGHT BUNDLE BRANCH BLOCK : Confirmed by: Marco Antonio Padilla MD 12-Mar-2019 13:16:19
[2019-03-12 13:21] LABS: ANION GAP 17 (5-19); BLOOD UREA NITROGEN 61 mg/dL (7-20); CALCIUM 7.9 mg/dL (8.4-10.2); CARBON DIOXIDE 23 mmol/L (22-30); CHLORIDE 101 mmol/L (98-107); CREATINE KINASE 134 U/L (55-170); GLUCOSE 72 mg/dL (75-110)
[2019-03-12 13:25] LABS: CREATINE KINASE MB 3.57 ng/mL (<4.55)
[2019-03-12] MEDS ORDERED: GLUCAGON,HUMAN RECOMB 1 MG INJ IM PRN (13:31)
[2019-03-12] MEDS ORDERED: DEXTROSE 40% GEL 15 GM TUBE PO PRN ×2 (13:31)
[2019-03-12] MEDS ORDERED: DEXTROSE 50%-WATER 25 GM/50 ML DISP.SYRIN IV PRN ×2 (13:31)
[2019-03-12 13:34] LABS: POTASSIUM 6.1 mmol/L (3.6-5.0)
[2019-03-12 13:35] LABS: TROPONIN I 0.045 ng/mL
--- NOTE | 2019-03-12 14:14 | PDOC CONSULTATION ---
Consultation Consult Date: 03/12/19 Provider Consulted: SHEN AZUL Consult reason:: I was asked by emergency room physician Dr. Tyler for emergency hemodialysis treatment due hyperkalemia. History of Present Illness Admission Date/PCP: 03/12/19 12:10 FEI ZULETA MD History of Present Illness: CHAPITO LESLIE is a 63 year old male known to me with history of ESRD on maintenance hemodialysis on MWF at [facility], history of coronary artery disease status post CABG x3, peripheral arterial disease status post right below-knee amputation and left middle finger amputation last week on antibiotics, diabetes mellitus type 2 and hypertension who was brought to the emergency room by EMS because of a fall. Patient could not remember him falling or how he fell. In the emergency room the states that she found the patient on the floor and has to get her son to help him back to the bed. They called EMS. Initial evaluation in the emergency room revealed a potassium of 7.1, BUN of 60 and creatinine of 13.78. Patient reports that he did not go for his dialysis treatment last Tuesday and had to shortened treatment prior to that on Tuesday. He states that he did not go for dialysis on Tuesday because he was having diarrhea at least since of last week. His also states that the patient had to get up go to the bathroom for the last couple of nights due to the diarrhea. This morning he also had a little bit of nausea but no vomiting. He said he is eating fine. He admits to drinking fluids including juices including lynn juice. He denies any new onset shortness of breath nor any chest pains except for the surgical incision pain which he always had. In the emergency room he was given a cocktail of albuterol, IV calcium gluconate, sodium bicarbonate and Kayexalate of 15 g prior to bringing him up here for dialysis. I am seeing him now this afternoon during initiation of dialysis treatment. He is awake and answers questions. In addition to above patient told me that he is taking antibiotics given by the surgeon who did his left middle finger amputatio n last week. He is uncertain of what now oral antibiotics is. Currently he is on dialysis and is so far tolerating it well. He otherwise does not have any other complaints. Past Medical History Cardiac Medical History: Reports: Atrial Fibrillation, CHF-Diastolic, Coronary Artery Disease, Hypertension-primary, Myocardial Infarction - x3, Peripheral Vascular Disease Endocrine Medical History: Reports: Diabetes Mellitus Type 2 Complications of Diabetes: Reports: Nephropathy Renal/ Medical History: Reports: End Stage Renal Disease, Hyperphosphatemia, Secondary Hyperparathyroidism GI Medical History: Reports: Gastroesophageal Reflux Disease Psychiatric Medical History: Reports: Depression Traumatic Medical History: Denies: Traumatic Brain Injury Hematology Medical History: Reports Anemia of Chronic Kidney Disease Past Surgical History Past Surgical History: Reports: Cardiac Catheterization, Coronary Artery Bypass Graft - X3 vessel on October 26, 2017, Dialysis Access Surgery AVF, Orthopedic Surgery - R great toe amp. L 3rd/4th toe amp. R BKA. L 3rd finger amp., Vascular Surgery, Other - Cervical laminectomy in 2012 Social History Information Source: Patient, [facility] Records Lives with: Family Smoking Status: Former Smoker Frequency of Alcohol Use: Rare Hx Recreational Drug Use: No Drugs: None Hx Prescription Drug Abuse: No Family History Family History: Reviewed & Not Pertinent Parental Family History Reviewed: Yes Children Family History Reviewed: Yes Sibling(s) Family History Reviewed.: Yes Medication/Allergy Allergies/Adverse Reactions: erythromycin base Allergy (Verified 03/12/19 07:04) vancomycin [Vancomycin] Adverse Reaction (Unknown, Verified 03/12/19 07:04) molina syndrome morphine Adverse Reaction (Verified 03/12/19 07:04) Review of Systems All systems: reviewed and no additional remarkable complaints except as stated Review of Systems: Constitutional: ABSENT: chills, fatigue, fever(s), headache(s), weight gain, weight loss Eyes: ABSENT: visual disturbances Ears: ABSENT: hearing changes Cardiovascular: ABSENT: chest pain, dyspnea on exertion, edema, orthropnea, palpitations Respiratory: ABSENT: cough, dyspnea, hemoptysis Gastrointestinal: ABSENT: abdominal pain, constipation, hematemesis, hematochezia, vomiting; admits diarrhea nausea Genitourinary: ABSENT: dysuria, hematuria Musculoskeletal: ABSENT: joint swelling Integumentary: ABSENT: rash, wounds Neurological: ABSENT: abnormal gait, abnormal speech, confusion, dizziness, focal weakness, numbness, syncope Psychiatric: ABSENT: anxiety, depression Endocrine: ABSENT: cold intolerance, heat intolerance, polydipsia, polyuria Hematologic/Lymphatic: ABSENT: easy bleeding, easy bruising, lymphadenopathy Physical Exam Vital Signs: Temp Pulse Resp BP Pulse Ox 98.6 F 57 L 11 L 155/34 H 100 03/12/19 07:13 03/12/19 07:13 03/12/19 10:14 03/12/19 10:14 03/12/19 10:14 Intake & Output 03/11/19 03/12/19 03/13/19 06:59 06:59 06:59 Weight 74.843 kg Vitals during dialysis: Blood pressure 148/36, heart rate of 69, blood flow rate of 400 mL/min and dialysate flow rate of 800 mL/min. Exam: General appearance: No acute distress, cooperative, well-developed, well- nourished Head exam: PRESENT: atraumatic, normocephalic Eye exam: PRESENT: Conjunctiva pale, EOMI, PERRLA. ABSENT: conjunctival injection, scleral icterus Mouth exam: PRESENT: moist, neck supple, tongue midline Neck exam: PRESENT: full ROM. ABSENT: carotid bruit, JVD, lymphadenopathy, thyromegaly Respiratory exam: PRESENT: clear to auscultation bilaterally. ABSENT: rales, rhonchi, stridor, wheezes Cardiovascular exam: PRESENT: RRR, +S1, +S2. ABSENT: systolic murmur Pulses: PRESENT: normal radial pulses, normal dorsalis pedis pulses GI/Abdominal exam: PRESENT: normal bowel sounds, soft. ABSENT: guarding, mass, tenderness Rectal exam: Deferred Extremities exam: PRESENT: full ROM. Absent left finger with wound VAC on. ABSENT: calf tenderness, pedal edema Musculoskeletal: PRESENT: full ROM. Right BKA. Right second third and fourth distal phalangeal dry ulcers ABSENT: deformity Neurological exam: PRESENT: alert, Awake, Oriented to person, Oriented to place, Oriented to time, reflexes normal, CN II-XII grossly intact. ABSENT: motor sensory deficit Psychiatric exam: PRESENT: appropriate affect, normal mood. ABSENT: homicidal ideation, suicidal ideation Skin exam: PRESENT: intact, dry, warm. ABSENT: rash Results Laboratory Results: 03/12/19 07:53 03/12/19 12:28 03/12/19 03/12/19 03/12/19 07:53 07:53 07:53 WBC 4.8 RBC 3.29 L Hgb 9.8 L Hct 31.3 L MCV 95 MCH 29.8 MCHC 31.4 L RDW 24.4 H Plt Count 145 L Seg Neutrophils % Not Reportable VBG pH VBG pCO2 VBG HCO3 VBG Base Excess Sodium 135.4 L Potassium 7.1 H* Chloride 98 Carbon Dioxide 19 L Anion Gap 18 BUN 60 H Creatinine 13.78 H Est GFR ( Amer) 4 L Glucose 93 Lactic Acid 1.9 Calcium 8.5 Total Bilirubin 0.8 AST 22 Alkaline Phosphatase 99 Total Protein 9.3 H Albumin 4.4 03/12/19 03/12/19 07:53 12:28 WBC RBC Hgb Hct MCV MCH MCHC RDW Plt Count Seg Neutrophils % VBG pH 7.19 L* VBG pCO2 44.6 VBG HCO3 16.8 L VBG Base Excess -11.1 Sodium 140.6 Potassium 6.1 H* D Chloride 101 Carbon Dioxide 23 Anion Gap 17 BUN 61 H Creatinine 11.66 H Est GFR ( Amer) 5 L Glucose 72 L Lactic Acid Calcium 7.9 L Total Bilirubin AST Alkaline Phosphatase Total Protein Albumin 03/12/19 03/12/19 03/12/19 07:53 07:53 12:28 Creatine Kinase 153 134 CK-MB (CK-2) Troponin I 0.043 03/12/19 12:28 Creatine Kinase CK-MB (CK-2) 3.57 Troponin I 0.045 Impressions: Head CT 03/12/19 00:00 IMPRESSION: No acute intracranial pathology. EVIDENCE OF ACUTE STROKE: NO. Chest X-Ray 03/12/19 11:10 IMPRESSION: Cardiomegaly without pulmonary edema. Subsegmental atelectasis. Assessment & Plan - Diagnosis (1) Hyperkalemia Is this a current diagnosis for this admission?: Yes Plan: This is likely a result of patient missing and shortening his dialysis treatments as an outpatient. His potassium is initially very elevated requiring emergent dialysis. Anti-hyperkalemia cocktail is been given in the emergency room prior to dialysis treatment. (2) End stage renal disease Is this a current diagnosis for this admission?: Yes Plan: We will do dialysis today for 3 hours, using the patient's left AV fistula, with 1K bath for the first hour followed by 2K/3.0 calcium for the next 2 hours, blood flow rate of 400 mL per minute, dialysate flow rate of 800 mL per minute, ultrafiltration 500-1000 MLS tolerated, no heparin and Procrit with 10,000 units during dialysis intravenously. Patient volume will be monitored throughout dialysis treatment. Treatment orders discussed with our dialysis nurse. (3) Acute diarrhea Is this a current diagnosis for this admission?: Yes Plan: Check stool for C. difficile since the patient has been on antibiotics. (4) Anemia in chronic kidney disease (CKD) Qualifiers: Chronic kidney disease stage: on chronic dialysis Qualified Code(s): N18.6 - End stage renal disease; D63.1 - Anemia in chronic kidney disease; Z99.2 - Dependence on renal dialysis Is this a current diagnosis for this admission?: Yes Plan: Procrit to be given during dialysis as needed. (5) CAD (coronary artery disease) Qualifiers: Coronary Disease-Associated Artery/Lesion type: unspecified vessel or lesion type [place] vs. transplanted heart: barrow heart Associated angina: with unstable angina Qualified Code(s): I25.110 - Atherosclerotic heart disease of [place] coronary artery with unstable angina pectoris Is this a current diagnosis for this admission?: Yes Plan: Status post CABG x3. (6) Hypertension Qualifiers: Hypertension type: unspecified Qualified Code(s): I10 - Essential (primary) hypertension Is this a current diagnosis for this admission?: Yes (7) PVD (peripheral vascular disease) Is this a current diagnosis for this admission?: Yes Plan: Recent left middle finger amputation currently on wound VAC. (8) Type 2 diabetes mellitus Qualifiers: Diabetes mellitus usp insulin use: with usp use Diabetes mellitus complication status: with other specified complication Qualified Code(s): E11.69 - Type 2 diabetes mellitus with other specified complication; Z79.4 - long term care pharmacist (current) use of insulin; Z79.4 - long term care pharmacist (current) use of insulin; Z79.4 - long term care pharmacist (current) use of insulin; Z79.4 - [facility] (current) use of insulin Is this a current diagnosis for this admission?: Yes - Notes Notes: Thank you very much for this consultation. We will continue to supervise dialysis while here in the hospital. - Time Time Spent: 50 to 70 Minutes
[2019-03-12] MEDS ORDERED: NITROGLYCERIN 0.4 MG/TAB 25 TAB/BOTTLE SL PRN (15:27)
[2019-03-12] MEDS ORDERED: (PENDING PHARMACY ID) (Ondansetron Hcl [Zofran 4 Mg Tablet] 4 MG) PO PRN (15:27)
[2019-03-12] MEDS ORDERED: ONDANSETRON 4 MG TAB.RAPDIS PO PRN (15:47)
--- NOTE | 2019-03-12 16:15 | PDOC CONSULTATION ---
Consultation Consult Date: 03/12/19 Attending physician:: RICARDO ZULETA Provider Consulted: CRESENCIO STORM Consult reason:: Wound left hand History of Present Illness Admission Date/PCP: 03/12/19 12:10 FEI ZULETA MD History of Present Illness: CHAPITO LESLIE is a 63 year old male Presents to the emergency department via ground rescue following episodes of collapse, nonresponsiveness, and evidence of embolic derangement. He was admitted to the internal medicine service and taken directly to dialysis. We do not have complete medical records, but apparently underwent a left third digit amputation, wound left open, treated with a wound VAC. He has been going to the advanced wound [facility] in [place] with VAC changes for several weeks. The wound VAC is currently on, and according to patient, last changed March 09 Past Medical History Cardiac Medical History: Reports: Atrial Fibrillation, Congestive Heart Failure, Coronary Artery Disease, Myocardial Infarction - x3, Hypertension, Peripheral Vascular Disease Pulmonary Medical History: Reports: Chronic Obstructive Pulmonary Disease (COPD), Respiratory Failure Denies: Asthma, Bronchitis, Pneumonia Neurological Medical History: Denies: Seizures Endocrine Medical History: Reports: Diabetes Mellitus Type 1, Diabetes Mellitus Type 2 Renal/ Medical History: Reports: End Stage Renal Disease GI Medical History: Reports: Gastroesophageal Reflux Disease Denies: Hepatitis, Hiatal Hernia Musculoskeltal Medical History: Denies: Arthritis Skin Medical History: Denies: Psoriasis Psychiatric Medical History: Reports: Depression Traumatic Medical History: Denies: Traumatic Brain Injury Hematology: Past Surgical History Past Surgical History: Reports: Cardiac Catheterization, Coronary Artery Bypass Graft - X3 vessel on October 26, 2017, Coronary Stent, Orthopedic Surgery - R great toe amp. L 3rd/4th toe amp. R BKA. L 3rd finger amp., Vascular Surgery, Other - Cervical laminectomy in 2012 Denies: Pacemaker Social History Information Source: Patient Lives with: Family Smoking Status: Unknown if Ever Smoked Frequency of Alcohol Use: Rare Hx Recreational Drug Use: No Drugs: None Hx Prescription Drug Abuse: No - Advance Directive Resuscitation Status: Full Code Family History Family History: Reviewed & Not Pertinent, CAD, Hypertension, Malignancy Parental Family History Reviewed: No Children Family History Reviewed: No Sibling(s) Family History Reviewed.: No Medication/Allergy Home Medications: Aspirin [Adult Low Dose Aspirin EC] 81 mg PO DAILY 03/12/19 Atorvastatin Calcium [Lipitor 40 mg Tablet] 40 mg PO QHS 03/12/19 Calcium Acetate [Phoslo 667 mg Capsule] 667 mg PO MEALS 03/12/19 Clopidogrel Bisulfate [Plavix 75 mg Tablet] 75 mg PO DAILY 03/12/19 Diclofenac Sodium [Voltaren] 4 gm TD QID 03/12/19 Gabapentin [Neurontin 100 mg Capsule] 100 mg PO Q12 03/12/19 Hydrocodone/Acetaminophen [[place] 10-325 mg Tablet] 1 tab PO Q8HP PRN 03/12/19 Insulin Glargine,Hum.rec.anlog [Lantus Insulin 100 Unit/1 ml 10 ml] 5 units SQ DAILY 03/12/19 Midodrine HCl 2.5 mg PO TID 03/12/19 Mupirocin [Bactroban 2% Ointment 22 gm] 1 applic TOP BID 03/12/19 Nitroglycerin [Nitrostat 0.4 mg (1/150 Gr) Tabs 25/Bottle] 0.4 ml SL Q5MP PRN 03/12/19 Ondansetron HCl [Zofran 4 mg Tablet] 4 mg PO Q6HP PRN 03/12/19 Allergies/Adverse Reactions: erythromycin base Allergy (Verified 03/12/19 07:04) vancomycin [Vancomycin] Adverse Reaction (Unknown, Verified 03/12/19 07:04) molina syndrome morphine Adverse Reaction (Verified 03/12/19 07:04) Review of Systems ROS unobtainable: Other - See review of systems from H&P Physical Exam Vital Signs: Temp Pulse Resp BP Pulse Ox 98.6 F 57 L 11 L 155/34 H 100 03/12/19 07:13 03/12/19 07:13 03/12/19 10:14 03/12/19 10:14 03/12/19 10:14 Intake & Output 03/11/19 03/12/19 03/13/19 06:59 06:59 06:59 Weight 74.843 kg General appearance: PRESENT: other - On dialysis sitting upright, listing anteriorly with alertness fluctuating Eye exam: PRESENT: other - Disconjugate gaze Mouth exam: PRESENT: dry mucosa Neck exam: PRESENT: other - No palpable masses Respiratory exam: PRESENT: rhonchi - Rhonchi bilaterally Pulses: PRESENT: other - No palpable pulses at the wrist or ankles. Musculoskeletal exam: PRESENT: other - Right hand examined; room temperature; ischemic changes to distal phalanges 2 3 and 4 with early mummification; no moist gangrene. Left hand with wound VAC on suction black sponge in the mid position consistent with recent left third digit amputation Right BKA stump well-healed Left foot with shortening digits 3 and 4 consistent with partial amputation Neurological exam: PRESENT: awake Results Laboratory Results: 03/12/19 07:53 03/12/19 12:28 03/12/19 03/12/19 03/12/19 07:53 07:53 07:53 WBC 4.8 RBC 3.29 L Hgb 9.8 L Hct 31.3 L MCV 95 MCH 29.8 MCHC 31.4 L RDW 24.4 H Plt Count 145 L Seg Neutrophils % Not Reportable VBG pH VBG pCO2 VBG HCO3 VBG Base Excess Sodium 135.4 L Potassium 7.1 H* Chloride 98 Carbon Dioxide 19 L Anion Gap 18 BUN 60 H Creatinine 13.78 H Est GFR ( Amer) 4 L Glucose 93 Lactic Acid 1.9 Calcium 8.5 Total Bilirubin 0.8 AST 22 Alkaline Phosphatase 99 Total Protein 9.3 H Albumin 4.4 03/12/19 03/12/19 07:53 12:28 WBC RBC Hgb Hct MCV MCH MCHC RDW Plt Count Seg Neutrophils % VBG pH 7.19 L* VBG pCO2 44.6 VBG HCO3 16.8 L VBG Base Excess -11.1 Sodium 140.6 Potassium 6.1 H* D Chloride 101 Carbon Dioxide 23 Anion Gap 17 BUN 61 H Creatinine 11.66 H Est GFR ( Amer) 5 L Glucose 72 L Lactic Acid Calcium 7.9 L Total Bilirubin AST Alkaline Phosphatase Total Protein Albumin 03/12/19 03/12/19 03/12/19 07:53 07:53 12:28 Creatine Kinase 153 134 CK-MB (CK-2) Troponin I 0.043 03/12/19 12:28 Creatine Kinase CK-MB (CK-2) 3.57 Troponin I 0.045 Impressions: Head CT 03/12/19 00:00 IMPRESSION: No acute intracranial pathology. EVIDENCE OF ACUTE STROKE: NO. Chest X-Ray 03/12/19 11:10 IMPRESSION: Cardiomegaly without pulmonary edema. Subsegmental atelectasis. Assessment & Plan - Diagnosis (1) Open wound of left hand Qualifiers: Encounter type: initial encounter Foreign body presence: unspecified Is this a current diagnosis for this admission?: Yes Plan: Impression: Status post third ray amputation of the hand, wound left open with wound VAC in position. [facility] at [facility]. 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 We will have nursing staff change wound VAC sponge today, replace every 3 da ys thereafter 2. Patient can follow-up with advanced wound [facility] upon discharge tomorrow hospital. 3. These Recom consult general surgery as needed. (2) Altered mental status Qualifiers: Altered mental status type: unspecified Qualified Code(s): R41.82 - Altered mental status, unspecified Is this a current diagnosis for this admission?: Yes (3) Anemia in chronic kidney disease (CKD) Qualifiers: Chronic kidney disease stage: on chronic dialysis Qualified Code(s): N18.6 - End stage renal disease Is this a current diagnosis for this admission?: Yes (4) Atrial fibrillation Qualifiers: Atrial fibrillation type: chronic (5) Diabetes mellitus Qualifiers: Diabetes mellitus type: type 2 Chronic kidney disease stage: on chronic dialysis Is this a current diagnosis for this admission?: Yes (6) Hyperkalemia Is this a current diagnosis for this admission?: Yes - Time Time Spent: 30 to 50 Minutes Smoking Cessation Education: 3 to 10 minutes Medications reviewed and adjusted accordingly: Yes Anticipated discharge: Home
--- NOTE | 2019-03-12 17:17 | PDOC H&P ---
History of Present Illness Admission Date/PCP: 03/12/19 12:10 FEI ZULETA MD Patient complains of: fall/ams History of Present Illness: CHAPITO LESLIE is a 63 year old male This is a 63-year-old male's with the history of the type 2 diabetes mellitusHistory of the end-stage renal disease on hemodialysisHistory of the significant peripheral vascular disease status post right knee amputations and also have a left third metacarpal amputations last week due to the osteomyelitisWith a history of the significant coronary artery disease status post bypass stent and multiple hospital admissions history of cardiac arrest chronic respiratory failures on home oxygen's and currently multiple hospital admission at [facility] to the emergency department by EMS because of the fall and altered mental status this morning According to the patient's was very weak and fall and EMS brought to the ER while patient appropriate answer the questions patient is very poor historian per ER physicians but patient always scant very depressed and answering the questions very slowly In the emergency department patient's potassium was 7.1And patient supposed to have scheduled for dialysis this morning underwent for the emergency dialysis today currently doing better Recent CT head was negative for any acute strokes Being the [facility] discharge summary with the patient MRI of the left hand was negative. Osteomyelitis patient seen by the infectious disease and patient seen by the vascular surgeon Patient was giving cefepime vancomycin and Flagyl empirically in the hospital but I do not think so to give any antibiotic on the discharge patient is currently have a wound VAC and follow-up with the wound care Patient also have ongoing problems with the chest wall pain with the wire status post bypass have a follow-up appointment to the CT surgeon to remove it in [place] in the next week Patient is otherwise denied any chest pain to than any shortness of the breath Past Medical History Cardiac Medical History: Reports: Atrial Fibrillation, Congestive Heart Failure, Coronary Artery Disease, Myocardial Infarction - x3, Hypertension, Peripheral Vascular Disease Pulmonary Medical History: Reports: Chronic Obstructive Pulmonary Disease (COPD), Respiratory Failure Denies: Asthma, Bronchitis, Pneumonia Neurological Medical History: Denies: Seizures Endocrine Medical History: Reports: Diabetes Mellitus Type 2 Renal/ Medical History: Reports: End Stage Renal Disease GI Medical History: Reports: Gastroesophageal Reflux Disease Denies: Hepatitis, Hiatal Hernia Musculoskeltal Medical History: Denies: Arthritis Skin Medical History: Denies: Psoriasis Psychiatric Medical History: Reports: Depression Traumatic Medical History: Denies: Traumatic Brain Injury Hematology: Past Surgical History Past Surgical History: Reports: Cardiac Catheterization, Coronary Artery Bypass Graft - X3 vessel on October 26, 2017, Coronary Stent, Orthopedic Surgery - R great toe amp. L 3rd/4th toe amp. R BKA. L 3rd finger amp., Vascular Surgery, Other - Cervical laminectomy in 2012 Denies: Pacemaker Social History Information Source: Patient, Relative Lives with: Family Smoking Status: Unknown if Ever Smoked Frequency of Alcohol Use: Rare Hx Recreational Drug Use: No Drugs: None Hx Prescription Drug Abuse: No - Advance Directive Resuscitation Status: Full Code Family History Family History: Reviewed & Not Pertinent, CAD, Hypertension, Malignancy Parental Family History Reviewed: Yes Children Family History Reviewed: Yes Sibling(s) Family History Reviewed.: Yes Medication/Allergy Home Medications: Aspirin [Adult Low Dose Aspirin EC] 81 mg PO DAILY 03/12/19 Atorvastatin Calcium [Lipitor 40 mg Tablet] 40 mg PO QHS 03/12/19 Calcium Acetate [Phoslo 667 mg Capsule] 667 mg PO MEALS 03/12/19 Clopidogrel Bisulfate [Plavix 75 mg Tablet] 75 mg PO DAILY 03/12/19 Diclofenac Sodium [Voltaren] 4 gm TD QID 03/12/19 Gabapentin [Neurontin 100 mg Capsule] 100 mg PO Q12 03/12/19 Hydrocodone/Acetaminophen [[place] 10-325 mg Tablet] 1 tab PO Q8HP PRN 03/12/19 Insulin Glargine,Hum.rec.anlog [Lantus Insulin 100 Unit/1 ml 10 ml] 5 units SQ DAILY 03/12/19 Midodrine HCl 2.5 mg PO TID 03/12/19 Mupirocin [Bactroban 2% Ointment 22 gm] 1 applic TOP BID 03/12/19 Nitroglycerin [Nitrostat 0.4 mg (1/150 Gr) Tabs 25/Bottle] 0.4 ml SL Q5MP PRN 03/12/19 Ondansetron HCl [Zofran 4 mg Tablet] 4 mg PO Q6HP PRN 03/12/19 Allergies/Adverse Reactions: erythromycin base Allergy (Verified 03/12/19 07:04) vancomycin [Vancomycin] Adverse Reaction (Unknown, Verified 03/12/19 07:04) molina syndrome morphine Adverse Reaction (Verified 03/12/19 07:04) Review of Systems Constitutional: PRESENT: fatigue, weakness. ABSENT: chills, fever(s), he adache(s), weight gain, weight loss Eyes: ABSENT: visual disturbances Ears: ABSENT: hearing changes Cardiovascular: ABSENT: chest pain, dyspnea on exertion, edema, orthropnea, palpitations Respiratory: ABSENT: cough, hemoptysis Gastrointestinal: ABSENT: abdominal pain, constipation, diarrhea, hematemesis, hematochezia, nausea, vomiting Genitourinary: ABSENT: dysuria, hematuria Musculoskeletal: ABSENT: joint swelling Integumentary: ABSENT: rash, wounds Neurological: ABSENT: abnormal gait, abnormal speech, confusion, dizziness, focal weakness, syncope Psychiatric: ABSENT: anxiety, depression, homidical ideation, suicidal ideation Endocrine: ABSENT: cold intolerance, heat intolerance, menstrual abnormalities, polydipsia, polyuria Hematologic/Lymphatic: ABSENT: easy bleeding, easy bruising, lymphadenopathy Physical Exam Vital Signs: Temp Pulse Resp BP Pulse Ox 98.6 F 57 L 11 L 155/34 H 100 03/12/19 07:13 03/12/19 07:13 03/12/19 10:14 03/12/19 10:14 03/12/19 10:14 Intake & Output 03/11/19 03/12/19 03/13/19 06:59 06:59 06:59 Weight 74.843 kg General appearance: PRESENT: no acute distress, well-developed, well-nourished Head exam: PRESENT: atraumatic, normocephalic Eye exam: PRESENT: conjunctiva pink, EOMI, PERRLA. ABSENT: scleral icterus Ear exam: PRESENT: normal external ear exam Mouth exam: PRESENT: moist, tongue midline Neck exam: PRESENT: full ROM. ABSENT: carotid bruit, JVD, lymphadenopathy, thyromegaly Cardiovascular exam: PRESENT: RRR. ABSENT: diastolic murmur, rubs, systolic murmur Vascular exam: PRESENT: normal capillary refill GI/Abdominal exam: PRESENT: normal bowel sounds, soft. ABSENT: distended, guarding, mass, organolmegaly, rebound, tenderness Rectal exam: PRESENT: deferred Extremities exam: PRESENT: right BKA. ABSENT: pedal edema Additional comments: Left second third metacarpal amputations status post wound VAC Neurological exam: PRESENT: alert, awake, oriented to person, oriented to place, oriented to time. ABSENT: motor sensory deficit Psychiatric exam: PRESENT: appropriate affect, normal mood. ABSENT: homicidal ideation, suicidal ideation Skin exam: PRESENT: dry, intact, warm. ABSENT: cyanosis, rash Results Laboratory Results: 03/12/19 07:53 03/12/19 12:28 03/12/19 03/12/19 03/12/19 07:53 07:53 07:53 WBC 4.8 RBC 3.29 L Hgb 9.8 L Hct 31.3 L MCV 95 MCH 29.8 MCHC 31.4 L RDW 24.4 H Plt Count 145 L Seg Neutrophils % Not Reportable VBG pH VBG pCO2 VBG HCO3 VBG Base Excess Sodium 135.4 L Potassium 7.1 H* Chloride 98 Carbon Dioxide 19 L Anion Gap 18 BUN 60 H Creatinine 13.78 H Est GFR ( Amer) 4 L Glucose 93 Lactic Acid 1.9 Calcium 8.5 Total Bilirubin 0.8 AST 22 Alkaline Phosphatase 99 Total Protein 9.3 H Albumin 4.4 03/12/19 03/12/19 07:53 12:28 WBC RBC Hgb Hct MCV MCH MCHC RDW Plt Count Seg Neutrophils % VBG pH 7.19 L* VBG pCO2 44.6 VBG HCO3 16.8 L VBG Base Excess -11.1 Sodium 140.6 Potassium 6.1 H* D Chloride 101 Carbon Dioxide 23 Anion Gap 17 BUN 61 H Creatinine 11.66 H Est GFR ( Amer) 5 L Glucose 72 L Lactic Acid Calcium 7.9 L Total Bilirubin AST Alkaline Phosphatase Total Protein Albumin 03/12/19 03/12/19 03/12/19 07:53 07:53 12:28 Creatine Kinase 153 134 CK-MB (CK-2) Troponin I 0.043 03/12/19 12:28 Creatine Kinase CK-MB (CK-2) 3.57 Troponin I 0.045 Impressions: Head CT 03/12/19 00:00 IMPRESSION: No acute intracranial pathology. EVIDENCE OF ACUTE STROKE: NO. Chest X-Ray 03/12/19 11:10 IMPRESSION: Cardiomegaly without pulmonary edema. Subsegmental atelectasis. Assessment & Plan - Diagnosis (1) Altered mental status Qualifiers: Altered mental status type: unspecified Qualified Code(s): R41.82 - Altered mental status, unspecified Is this a current diagnosis for this admission?: Yes Plan: Most likely a possible from the metabolic encephalopathy due to the hyperkalemia end-stage renal disease and possible sepsis Will check the lactic acids check the blood work checked all culture check the stool for C. difficile (2) Acute diarrhea Is this a current diagnosis for this admission?: Yes Plan: Due to the recent antibiotics will check the stool for C. difficile empirically put the patient on a Flagyl (3) Chronic atrial fibrillation Is this a current diagnosis for this admission?: Yes Plan: Currently on amiodarone no anticoagulation due to the multiple falls currently follows a cardiology at [facility] (4) Hyperkalemia Is this a current diagnosis for this admission?: Yes Plan: Currently on hemodialysis going 1 follow with the nephrology (5) CKD (chronic kidney disease) stage V requiring chronic dialysis Is this a current diagnosis for this admission?: Yes Plan: Consult the nephrology for dialysis (6) CAD (coronary artery disease) Qualifiers: Coronary Disease-Associated Artery/Lesion type: unspecified vessel or lesion type [place] vs. transplanted heart: [place] heart Associated angina: with unstable angina Qualified Code(s): I25.110 - Atherosclerotic heart disease of [place] coronary artery with unstable angina pectoris Is this a current diagnosis for this admission?: Yes Plan: With the patient with multiple coronary disease we will consult the cardiology (7) Chest wall pain following surgery Is this a current diagnosis for this admission?: Yes Plan: Schedule appointment to see CT surgeon removing the wire (8) Chronic pain syndrome Is this a current diagnosis for this admission?: Yes Plan: She is currently follow with the pain management (9) Congestive heart failure Qualifiers: Heart failure type: combined systolic and diastolic Heart failure chronicity: chronic Qualified Code(s): I50.42 - Chronic combined systolic (congestive) and diastolic (congestive) heart failure Is this a current diagnosis for this admission?: Yes Plan: Currently on hemodialysis (10) Diabetes mellitus Qualifiers: Diabetes mellitus type: type 2 Chronic kidney disease stage: on chronic dialysis Is this a current diagnosis for this admission?: Yes Plan: Continues to sliding scale's (11) PVD (peripheral vascular disease) Is this a current diagnosis for this admission?: Yes Plan: Patient is already seen the vascular surgeon in [place] (12) Open wound of left hand Qualifiers: Encounter type: initial encounter Foreign body presence: unspecified Is this a current diagnosis for this admission?: Yes Plan: Patient have a Second third metacarpal amputations due to the osteomyelitis according to the discharge summary MRI of the left hand is negative for osteomyelitis currently on wound VAC we will consult the surgery - Time Time Spent: 50 to 70 Minutes Medications reviewed and adjusted accordingly: Yes Anticipated discharge: Home with Homehealth Within: Other - Inpatient Certification Based on my medical assessment, after consideration of the patient's comorbidities, presenting symptoms, or acuity I expect that the services needed warrant INPATIENT care.: Yes I certify that my determination is in accordance with my understanding of Medicare's requirements for reasonable and necessary INPATIENT services [42 CFR 412.3e].: Yes Medical Necessity: Failure to Improve With Outpatient Therapy, Significant Com orbidiites Make Outpatient Treatment Too Risky, Need Close Monitoring Due to Risk of Patient Decompensation, Need for Pain Control, Need for IV Antibiotics Post Hospital Care: D/C [employer]ulation Documentation - Plan Summary Plan Summary: Admit the patient in IMCU Going further dialysis for the nephrology right now We will check the stool for C. difficile empirically start the cefepime and Flagyl The lactic acids Multiple comorbidity multiple hospital admissions overall prognosis is very poor very extensive discussed with the patient and the several times
[2019-03-12] MEDS: INSULIN LISPRO 100 UNIT/ML 3 ML VIAL SUBCUT SCH ×2 (17:36→22:51)
[2019-03-12] MEDS: HEPARIN SOD (PORCINE) 5,000 UNIT/ML 1 ML VIAL SUBCUT SCH ×2 (17:36→22:50)
[2019-03-12] MEDS: CALCIUM ACETATE 667 MG CAPSULE PO SCH (17:36)
[2019-03-12] MEDS ORDERED: MIDODRINE HCL 2.5 MG PO SCH (18:00)
[2019-03-12] MEDS: MIDODRINE HCL 5 MG TABLET PO SCH (18:26)
[2019-03-12 19:09] LABS: ARTERIAL BLOOD BASE EXCESS -0.1 mmol/L; ARTERIAL BLOOD H2CO3 1.28 mmol/L (1.05-1.35); ARTERIAL BLOOD HCO3 24.9 mmol/L (20-24); ARTERIAL BLOOD O2 SATURATION 95.3 % (94-98); ARTERIAL BLOOD PCO2 42.4 mmHg (35-45); ARTERIAL BLOOD PH 7.39 (7.35-7.45); ARTERIAL BLOOD PO2 77.5 mmHg (80-100); ARTERIAL BLOOD TOTAL CO2 26.2 mmol/L (23-27)
[2019-03-12 19:10] LABS: ARTERIAL BLOOD FIO2 21%
[2019-03-12 19:10] LABS: C DIFFICILE GDH POSITIVE (NEGATIVE)
[2019-03-12 19:17] LABS: ANION GAP 17 (5-19); CALCIUM 9.1 mg/dL (8.4-10.2); CARBON DIOXIDE 22 mmol/L (22-30); CHLORIDE 96 mmol/L (98-107); GLUCOSE 112 mg/dL (75-110)
[2019-03-12 19:29] LABS: CREATINE KINASE MB 3.26 ng/mL (<4.55); TROPONIN I 0.06 ng/mL
[2019-03-12 19:33] LABS: BLOOD UREA NITROGEN 33 mg/dL (7-20); POTASSIUM 4.5 mmol/L (3.6-5.0)
[2019-03-12] MEDS: METRONIDAZOLE 500 MG/NS RTU 500 MG/100 ML RTUPB IV SCH (22:50)
[2019-03-12] MEDS: ATORVASTATIN CALCIUM 40 MG TABLET PO SCH (22:51)
[2019-03-12] MEDS: CEFEPIME 1 GM/D5W RTU 1 GM/50 ML RTUPB IV SCH (22:51)
[2019-03-12] MEDS: GABAPENTIN 100 MG CAPSULE PO SCH (22:51)
[2019-03-12] MEDS: MUPIROCIN 2% OINTMENT 22 GM TOP SCH (22:52)
[2019-03-13 01:39] LABS: CREATINE KINASE MB 3.51 ng/mL (<4.55)
[2019-03-13 01:54] LABS: TROPONIN I 0.197 ng/mL
[2019-03-13] MEDS: METRONIDAZOLE 500 MG/NS RTU 500 MG/100 ML RTUPB IV SCH ×3 (06:18→22:21)
[2019-03-13] MEDS: HEPARIN SOD (PORCINE) 5,000 UNIT/ML 1 ML VIAL SUBCUT SCH ×3 (06:18→22:20)
[2019-03-13] MEDS: INSULIN LISPRO 100 UNIT/ML 3 ML VIAL SUBCUT SCH ×4 (08:19→22:19)
[2019-03-13] MEDS: CALCIUM ACETATE 667 MG CAPSULE PO SCH ×3 (08:22→16:53)
[2019-03-13 09:12] LABS: HEMATOCRIT 30.4 % (37.9-51.0); HEMOGLOBIN 9.9 g/dL (13.5-17.0); MEAN CORPUSCULAR HEMOGLOBIN 30.4 pg (27.0-33.4); MEAN CORPUSCULAR HGB CONC 32.4 g/dL (32.0-36.0); MEAN CORPUSCULAR VOLUME 94 fl (80-97); PLATELET COUNT 104 10^3/uL (150-450); RED BLOOD COUNT 3.25 10^6/uL (4.35-5.55); RED CELL DISTRIBUTION WIDTH 24.3 % (11.5-14.0); WHITE BLOOD COUNT 3.2 10^3/uL (4.0-10.5)
[2019-03-13] MEDS: MIDODRINE HCL 5 MG TABLET PO SCH ×3 (09:14→17:11)
[2019-03-13] MEDS: GABAPENTIN 100 MG CAPSULE PO SCH ×2 (09:14→22:21)
[2019-03-13] MEDS: OXYCODONE-ACETAMINOPHEN 5-325 MG TABLET PO PRN (09:15)
[2019-03-13] MEDS: ASPIRIN 81 MG TABLET, ENT COATED PO SCH (09:15)
[2019-03-13] MEDS: CLOPIDOGREL BISULFATE 75 MG TABLET PO SCH (09:15)
[2019-03-13] MEDS: CEFEPIME 1 GM/D5W RTU 1 GM/50 ML RTUPB IV SCH (09:18)
[2019-03-13 09:49] LABS: ABSOLUTE LYMPHOCYTES# (MANUAL) 0.6 10^3/uL (0.5-4.7); ABSOLUTE MONOCYTES # (MANUAL) 0.6 10^3/uL (0.1-1.4); BAND NEUTROPHILS % (MANUAL) 1 % (3-5); BASOPHILS % (MANUAL) 0 % (0-2); EOSINOPHILS % (MANUAL) 1 % (0-6); LYMPHOCYTES % (MANUAL) 18 % (13-45); MONOCYTES % (MANUAL) 20 % (3-13); SEGMENTED NEUTROPHILS % (MAN) 60 % (42-78); TOTAL CELLS COUNTED 100
[2019-03-13 09:52] LABS: ANISOCYTOSIS 3+; OVALOCYTES SLIGHT; PLATELET COMMENT DECREASED; POIKILOCYTOSIS SLIGHT; TARGET CELLS SLIGHT
--- NOTE | 2019-03-13 13:40 | PDOC PROGRESS REPORT ---
Subjective Progress Note for:: 03/13/19 Subjective:: Patient is currently doing fair She is denied any chest pain to than any shortness of the breath Patient troponin is elevated discussed with the Dr. Angel is going to look at the patient's today Is an appointment to see a vascular surgeon tomorrow at [facility] no chills Reason For Visit: ESRD/AMS Physical Exam Vital Signs: Temp Pulse Resp BP Pulse Ox 97.8 F 71 14 140/41 H 90 L 03/13/19 11:34 03/13/19 12:38 03/13/19 12:38 03/13/19 11:34 03/13/19 12:38 Intake & Output 03/12/19 03/13/19 03/14/19 06:59 06:59 06:59 Intake Total 450 Output Total 1001 Balance -551 Weight 73.3 kg General appearance: PRESENT: no acute distress, well-developed, well-nourished Head exam: PRESENT: atraumatic, normocephalic Eye exam: PRESENT: conjunctiva pink, EOMI, PERRLA. ABSENT: scleral icterus Ear exam: PRESENT: normal external ear exam Mouth exam: PRESENT: moist, tongue midline Neck exam: PRESENT: full ROM. ABSENT: carotid bruit, JVD, lymphadenopathy, thyromegaly Respiratory exam: PRESENT: clear to auscultation john Cardiovascular exam: PRESENT: RRR. ABSENT: diastolic murmur, rubs, systolic murmur Vascular exam: PRESENT: normal capillary refill GI/Abdominal exam: PRESENT: normal bowel sounds, soft. ABSENT: distended, guarding, mass, organolmegaly, rebound, tenderness Rectal exam: PRESENT: deferred Extremities exam: PRESENT: right BKA Additional comments: Left hand the wound VAC is present Neurological exam: PRESENT: alert, awake, oriented to person, oriented to place, oriented to time, oriented to situation, CN II-XII grossly intact. ABSENT: motor sensory deficit Psychiatric exam: PRESENT: appropriate affect, normal mood. ABSENT: homicidal ideation, suicidal ideation Skin exam: PRESENT: dry, intact, warm. ABSENT: cyanosis, rash Results Laboratory Results: 03/13/19 08:47 03/12/19 18:38 03/12/19 03/12/19 03/12/19 18:05 18:30 18:38 WBC RBC Hgb Hct MCV MCH MCHC RDW Plt Count Seg Neutrophils % Carbonic Acid 1.28 HCO3/H2CO3 Ratio 19:1 ABG pH 7.39 ABG pCO2 42.4 ABG pO2 77.5 L ABG HCO3 24.9 H ABG O2 Saturation 95.3 ABG Base Excess -0.1 FiO2 21% Sodium 135.1 L Potassium 4.5 D Chloride 96 L Carbon Dioxide 22 Anion Gap 17 BUN 33 H D Creatinine 7.79 H Est GFR ( Amer) 8 L Glucose 112 H Calcium 9.1 Magnesium Stl C.difficile Tox PCR NEGATIVE 03/13/19 03/13/19 08:47 08:47 WBC 3.2 L RBC 3.25 L Hgb 9.9 L Hct 30.4 L MCV 94 MCH 30.4 MCHC 32.4 RDW 24.3 H Plt Count 104 L Seg Neutrophils % Not Reportable Carbonic Acid HCO3/H2CO3 Ratio ABG pH ABG pCO2 ABG pO2 ABG HCO3 ABG O2 Saturation ABG Base Excess FiO2 Sodium Potassium Chloride Carbon Dioxide Anion Gap BUN Creatinine Est GFR ( Amer) Glucose Calcium Magnesium 2.2 Stl C.difficile Tox PCR 03/12/19 03/12/19 03/12/19 07:53 07:53 12:28 Creatine Kinase 153 134 CK-MB (CK-2) Troponin I 0.043 03/12/19 03/12/19 03/12/19 12:28 18:38 18:38 Creatine Kinase 188 H CK-MB (CK-2) 3.57 3.26 Troponin I 0.045 0.060 03/13/19 03/13/19 01:02 01:02 Creatine Kinase 202 H CK-MB (CK-2) 3.51 Troponin I 0.197 Impressions: Head CT 03/12/19 00:00 IMPRESSION: No acute intracranial pathology. EVIDENCE OF ACUTE STROKE: NO. Chest X-Ray 03/12/19 11:10 IMPRESSION: Cardiomegaly without pulmonary edema. Subsegmental atelectasis. Assessment & Plan - Diagnosis (1) Altered mental status Qualifiers: Altered mental status type: unspecified Qualified Code(s): R41.82 - Altered mental status, unspecified Is this a current diagnosis for this admission?: Yes Plan: Most likely a encephalopathy due to the metabolicDue to the patient's missed the dialysis currently all resolving (2) Acute diarrhea Is this a current diagnosis for this admission?: Yes Plan: Due to the recent antibiotics will check the stool for C. difficile empirically put the patient on a Flagyl (3) Chronic atrial fibrillation Is this a current diagnosis for this admission?: Yes Plan: Currently on amiodarone no anticoagulation due to the multiple falls currently follows a cardiology at [place] (4) Hyperkalemia Is this a current diagnosis for this admission?: Yes Plan: Currently all resolved (5) CKD (chronic kidney disease) stage V requiring chronic dialysis Is this a current diagnosis for this admission?: Yes Plan: Consult the nephrology for dialysis (6) CAD (coronary artery disease) Qualifiers: Coronary Disease-Associated Artery/Lesion type: unspecified vessel or lesion type [place] vs. transplanted heart: [place] heart Associated angina: with unstable angina Qualified Code(s): I25.110 - Atherosclerotic heart disease of [place] coronary artery with unstable angina pectoris Is this a current diagnosis for this admission?: Yes Plan: Since troponin was elevated but denied any chest pain we will consult the cardiology (7) Chest wall pain following surgery Is this a current diagnosis for this admission?: Yes Plan: Schedule appointment to see CT surgeon removing the wire (8) Chronic pain syndrome Is this a current diagnosis for this admission?: Yes Plan: She is currently follow with the pain management (9) Congestive heart failure Qualifiers: Heart failure type: combined systolic and diastolic Heart failure chronicity: chronic Qualified Code(s): I50.42 - Chronic combined systolic (congestive) and diastolic (congestive) heart failure Is this a current diagnosis for this admission?: Yes Plan: Currently on hemodialysis (10) Diabetes mellitus Qualifiers: Diabetes mellitus type: type 2 Chronic kidney disease stage: on chronic dialysis Is this a current diagnosis for this admission?: Yes Plan: Continues to sliding scale's (11) PVD (peripheral vascular disease) Is this a current diagnosis for this admission?: Yes (12) Open wound of left hand Qualifiers: Encounter type: initial encounter Foreign body presence: unspecified Is this a current diagnosis for this admission?: Yes - Time Time Spent with patient: 25-34 minutes Medications reviewed and adjusted accordingly: Yes Anticipated discharge: Home with Homehealth Within: Other - Plan Summary Plan Summary: Discussed with the and the bedside regarding the patient's current condit ions and discussed with the patient's with the multiple comorbidities patient have a very poor prognosis patients do not want to go to the nursing facilities wants to go home with the home health
[2019-03-13] MEDS: MUPIROCIN 2% OINTMENT 22 GM TOP SCH ×2 (17:11→17:51)
[2019-03-13] MEDS ORDERED: HYDRALAZINE HCL INJ/PF 20 MG/1 ML SDV ONE (20:32)
[2019-03-13] MEDS: ATORVASTATIN CALCIUM 40 MG TABLET PO SCH ×2 (22:21→22:34)
[2019-03-14] MEDS ORDERED: HYDRALAZINE HCL INJ/PF 20 MG/1 ML SDV ONE (04:12)
[2019-03-14] MEDS ORDERED: HYDRALAZINE HCL INJ/PF 20 MG/1 ML SDV IV PRN (04:54)
[2019-03-14] MEDS ORDERED: NORMAL SALINE 1000 ML 1,000 ML IV PRN (05:00)
[2019-03-14] MEDS ORDERED: EPOETIN ALFA-EPBX 10,000 UNIT in SYRINGE, DISPOSABLE, 1 EACH IV PRN (05:00)
[2019-03-14] MEDS: METRONIDAZOLE 500 MG/NS RTU 500 MG/100 ML RTUPB IV SCH ×3 (05:12→21:48)
[2019-03-14] MEDS: HEPARIN SOD (PORCINE) 5,000 UNIT/ML 1 ML VIAL SUBCUT SCH ×3 (05:13→21:44)
[2019-03-14 06:27] LABS: HEMATOCRIT 32.6 % (37.9-51.0); HEMOGLOBIN 10.4 g/dL (13.5-17.0); MEAN CORPUSCULAR HEMOGLOBIN 29.9 pg (27.0-33.4); MEAN CORPUSCULAR HGB CONC 31.8 g/dL (32.0-36.0); MEAN CORPUSCULAR VOLUME 94 fl (80-97); PLATELET COUNT 119 10^3/uL (150-450); RED BLOOD COUNT 3.46 10^6/uL (4.35-5.55); WHITE BLOOD COUNT 4.3 10^3/uL (4.0-10.5)
[2019-03-14 06:42] LABS: PHOSPHORUS 9.4 mg/dL (2.5-4.5)
[2019-03-14 06:59] LABS: ABSOLUTE LYMPHOCYTES# (MANUAL) 0.9 10^3/uL (0.5-4.7); ABSOLUTE MONOCYTES # (MANUAL) 0.9 10^3/uL (0.1-1.4); BAND NEUTROPHILS % (MANUAL) 3 % (3-5); BASOPHILS % (MANUAL) 1 % (0-2); EOSINOPHILS % (MANUAL) 2 % (0-6); LYMPHOCYTES % (MANUAL) 20 % (13-45); METAMYELOCYTES % (MANUAL) 1 % (0); MONOCYTES % (MANUAL) 20 % (3-13); NUCLEATED RED BLOOD CELLS 3 /100 WBC (0); SEGMENTED NEUTROPHILS % (MAN) 53 % (42-78); TOTAL CELLS COUNTED 100
[2019-03-14 07:00] LABS: ANISOCYTOSIS 3+; HYPOCHROMASIA SLIGHT; OVALOCYTES 1+; PLATELET COMMENT ADEQUATE; POIKILOCYTOSIS 1+; SCHISTOCYTES SLIGHT
[2019-03-14] MEDS: CALCIUM ACETATE 667 MG CAPSULE PO SCH ×3 (07:45→17:12)
[2019-03-14] MEDS: INSULIN LISPRO 100 UNIT/ML 3 ML VIAL SUBCUT SCH ×4 (07:56→22:02)
[2019-03-14 08:19] LABS: ANION GAP 16 (5-19); BLOOD UREA NITROGEN 54 mg/dL (7-20); CALCIUM 8.7 mg/dL (8.4-10.2); CARBON DIOXIDE 21 mmol/L (22-30); CHLORIDE 98 mmol/L (98-107); GLUCOSE 81 mg/dL (75-110); POTASSIUM 5.6 mmol/L (3.6-5.0)
[2019-03-14] MEDS ORDERED: EPOETIN ALFA-EPBX 10,000 UNIT/ML VIAL (RENAL) IV PRN (09:21)
[2019-03-14] MEDS: MIDODRINE HCL 5 MG TABLET PO SCH ×3 (12:14→17:12)
[2019-03-14] MEDS: GABAPENTIN 100 MG CAPSULE PO SCH ×2 (12:14→21:48)
[2019-03-14] MEDS: ASPIRIN 81 MG TABLET, ENT COATED PO SCH (12:14)
[2019-03-14] MEDS: CEFEPIME 1 GM/D5W RTU 1 GM/50 ML RTUPB IV SCH (12:15)
[2019-03-14] MEDS: CLOPIDOGREL BISULFATE 75 MG TABLET PO SCH (12:15)
[2019-03-14] MEDS: MUPIROCIN 2% OINTMENT 22 GM TOP SCH ×2 (12:18→17:13)
[2019-03-14] MEDS: OXYCODONE-ACETAMINOPHEN 5-325 MG TABLET PO PRN (12:19)
--- NOTE | 2019-03-14 12:36 | PDOC PROGRESS REPORT ---
Subjective Progress Note for:: 03/14/19 Subjective:: Patient is currently doing fair Denied any chest pain no short of breath [facility] Physical Exam Vital Signs: Temp Pulse Resp BP Pulse Ox 98.6 F 91 16 113/48 L 95 03/14/19 07:36 03/14/19 07:36 03/14/19 07:36 03/14/19 07:36 03/14/19 07:36 Intake & Output 03/13/19 03/14/19 03/15/19 06:59 06:59 06:59 Intake Total 450 300 150 Output Total 1001 Balance -551 300 150 Weight 73.3 kg 73.3 kg General appearance: PRESENT: no acute distress Head exam: PRESENT: atraumatic, normocephalic Eye exam: PRESENT: conjunctiva pink, EOMI, PERRLA. ABSENT: scleral icterus Ear exam: PRESENT: normal external ear exam Mouth exam: PRESENT: moist, tongue midline Neck exam: PRESENT: full ROM. ABSENT: carotid bruit, JVD, lymphadenopathy, thyromegaly Respiratory exam: PRESENT: clear to auscultation john Cardiovascular exam: PRESENT: RRR. ABSENT: diastolic murmur, rubs, systolic murmur Vascular exam: PRESENT: normal capillary refill GI/Abdominal exam: PRESENT: normal bowel sounds, soft. ABSENT: distended, guarding, mass, organolmegaly, rebound, tenderness Rectal exam: PRESENT: deferred Neurological exam: PRESENT: alert, awake, oriented to person, oriented to place. ABSENT: motor sensory deficit Psychiatric exam: PRESENT: appropriate affect, normal mood. ABSENT: homicidal ideation, suicidal ideation Skin exam: PRESENT: dry, intact, warm. ABSENT: cyanosis, rash Results Laboratory Results: 03/14/19 05:46 03/14/19 05:46 03/14/19 03/14/19 03/14/19 05:46 05:46 05:46 WBC 4.3 RBC 3.46 L Hgb 10.4 L Hct 32.6 L MCV 94 MCH 29.9 MCHC 31.8 L RDW 24.0 H Plt Count 119 L Seg Neutrophils % Not Reportable Sodium 135.3 L Potassium 5.6 H Chloride 98 Carbon Dioxide 21 L Anion Gap 16 BUN 54 H Creatinine 10.76 H Est GFR ( Amer) 6 L Glucose 81 Calcium 8.7 Phosphorus 9.4 H Magnesium 2.4 H 03/12/19 18:05 Stool - Stool - Final 03/12/19 18:05 Stool - Stool Stool Culture - Final NO SALMONELLA, SHIGELLA, CAMPYLOBACTER, OR E.COLI 0157 RECOVERED. NEGATIVE FOR SHIGA TOXINS 1&2. 03/12/19 03/12/19 03/12/19 07:53 07:53 12:28 Creatine Kinase 153 134 CK-MB (CK-2) Troponin I 0.043 03/12/19 03/12/19 03/12/19 12:28 18:38 18:38 Creatine Kinase 188 H CK-MB (CK-2) 3.57 3.26 Troponin I 0.045 0.060 03/13/19 03/13/19 01:02 01:02 Creatine Kinase 202 H CK-MB (CK-2) 3.51 Troponin I 0.197 Impressions: Head CT 03/12/19 00:00 IMPRESSION: No acute intracranial pathology. EVIDENCE OF ACUTE STROKE: NO. Chest X-Ray 03/12/19 11:10 IMPRESSION: Cardiomegaly without pulmonary edema. Subsegmental atelectasis. Assessment & Plan - Diagnosis (1) Altered mental status Qualifiers: Altered mental status type: unspecified Qualified Code(s): R41.82 - Altered mental status, unspecified Is this a current diagnosis for this admission?: Yes Plan: Most likely a encephalopathy due to the metabolicDue to the patient's missed the dialysis currently all resolving (2) Acute diarrhea Is this a current diagnosis for this admission?: Yes Plan: Due to the recent antibiotics will check the stool for C. difficile empirically put the patient on a Flagyl (3) Chronic atrial fibrillation Is this a current diagnosis for this admission?: Yes Plan: Currently on amiodarone no anticoagulation due to the multiple falls currently follows a cardiology at [place] (4) Hyperkalemia Is this a current diagnosis for this admission?: Yes Plan: Currently all resolved (5) CKD (chronic kidney disease) stage V requiring chronic dialysis Is this a current diagnosis for this admission?: Yes Plan: Consult the nephrology for dialysis (6) CAD (coronary artery disease) Qualifiers: Coronary Disease-Associated Artery/Lesion type: unspecified vessel or lesion type [place] vs. 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 installer supervisor currently stable no need for further evaluation in this hospital setting right now (7) Chest wall pain following surgery Is this a current diagnosis for this admission?: Yes Plan: Schedule appointment to see CT surgeon removing the wire (8) Chronic pain syndrome Is this a current diagnosis for this admission?: Yes Plan: She is currently follow with the pain management (9) Congestive heart failure Qualifiers: Heart failure type: combined systolic and diastolic Heart failure chronicity: chronic Qualified Code(s): I50.42 - Chronic combined systolic (congestive) and diastolic (congestive) heart failure Is this a current diagnosis for this admission?: Yes Plan: Currently on hemodialysis (10) Diabetes mellitus Qualifiers: Diabetes mellitus type: type 2 Chronic kidney disease stage: on chronic dialysis Is this a current diagnosis for this admission?: Yes (11) PVD (peripheral vascular disease) Is this a current diagnosis for this admission?: Yes Plan: Patient is already seen the vascular surgeon in [place] (12) Open wound of left hand Qualifiers: Encounter type: initial encounter Foreign body presence: unspecified Is this a current diagnosis for this admission?: Yes Plan: Patient have a Second third metacarpal amputations due to the osteomyelitis according to the discharge summary MRI of the left hand is negative for osteomyelitis currently on wound VAC we will consult the surgery - Time Time Spent with patient: 25-34 minutes Medications reviewed and adjusted accordingly: Yes Anticipated discharge: Home with Homehealth Within: within 24 hours - Plan Summary Plan Summary: Patient is currently doing fair I think patients back to the baseline we will discharge the patient in the next 24 hours at home's
--- NOTE | 2019-03-14 20:54 | PDOC PROGRESS REPORT ---
Subjective Progress Note for:: 03/14/19 Subjective:: I saw the patient during dialysis treatment. He is awake and is his usual mental state. He does not have any new complaints. He indicates that he is almost ready to go home. He is currently tolerating dialysis. Reason For Visit: ESRD/AMS Physical Exam Vital Signs: Temp Pulse Resp BP Pulse Ox 98.6 F 91 16 113/48 L 95 03/14/19 07:36 03/14/19 07:36 03/14/19 07:36 03/14/19 07:36 03/14/19 07:36 Intake & Output 03/13/19 03/14/19 03/15/19 06:59 06:59 06:59 Intake Total 450 300 150 Output Total 1001 Balance -551 300 150 Weight 73.3 kg 73.3 kg Vitals during dialysis treatment: Blood pressure 163/63, pulse rate of 58, blood flow rate of 450 mL/min and dialysate flow rate of 800 mL/min. Exam: General appearance: PRESENT: no acute distress, cooperative, well-developed, well-nourished Head exam: PRESENT: atraumatic, normocephalic Eye exam: PRESENT: conjunctiva pale, PERRLA. ABSENT: scleral icterus Neck exam: ABSENT: JVD Respiratory exam: PRESENT: Normal breath sounds. ABSENT: crackles, rales, r honchi, unlabored, wheezes Cardiovascular exam: PRESENT: Regular rate rhythm -+S1, +S2. ABSENT: diastolic murmur, systolic murmur GI/Abdominal exam: PRESENT: normal bowel sounds, soft. ABSENT: guarding, mass, tenderness Extremities exam: ABSENT: No edema; left hand with wound VAC over the left mid dle finger site; right second third and fourth fingernails with dry necrotic ulcer. Neurological exam: PRESENT: alert, awake, oriented to person, place and time. Skin exam: PRESENT: dry, warm, Results Laboratory Results: 03/14/19 05:46 03/14/19 05:46 03/14/19 03/14/19 03/14/19 05:46 05:46 05:46 WBC 4.3 RBC 3.46 L Hgb 10.4 L Hct 32.6 L MCV 94 MCH 29.9 MCHC 31.8 L RDW 24.0 H Plt Count 119 L Seg Neutrophils % Not Reportable Sodium 135.3 L Potassium 5.6 H Chloride 98 Carbon Dioxide 21 L Anion Gap 16 BUN 54 H Creatinine 10.76 H Est GFR ( Amer) 6 L Glucose 81 Calcium 8.7 Phosphorus 9.4 H Magnesium 2.4 H 03/12/19 03/12/19 03/12/19 07:53 07:53 12:28 Creatine Kinase 153 134 CK-MB (CK-2) Troponin I 0.043 03/12/19 03/12/19 03/12/19 12:28 18:38 18:38 Creatine Kinase 188 H CK-MB (CK-2) 3.57 3.26 Troponin I 0.045 0.060 03/13/19 03/13/19 01:02 01:02 Creatine Kinase 202 H CK-MB (CK-2) 3.51 Troponin I 0.197 Impressions: Head CT 03/12/19 00:00 IMPRESSION: No acute intracranial pathology. EVIDENCE OF ACUTE STROKE: NO. Chest X-Ray 03/12/19 11:10 IMPRESSION: Cardiomegaly without pulmonary edema. Subsegmental atelectasis. Assessment & Plan - Diagnosis (1) End stage renal disease Is this a current diagnosis for this admission?: Yes Plan: We will do dialysis today for 3 hours, using the patient's AV fistula, with 2 potassium bath, blood flow rate of 450 mL per minute, dialysate flow rate of 800 mL per minute, ultrafiltration 500 MLS tolerated, no heparin and no Procrit. Patient is monitored throughout dialysis treatment. (2) Hyperkalemia Is this a current diagnosis for this admission?: Yes Plan: Due to missing dialysis treatments. Improved. (3) Acute diarrhea Is this a current diagnosis for this admission?: Yes Plan: C. difficile serology suggests no acute infection. (4) Anemia in chronic kidney disease (CKD) Qualifiers: Chronic kidney disease stage: on chronic dialysis Qualified Code(s): N18.6 - End stage renal disease Is this a current diagnosis for this admission?: Yes (5) CAD (coronary artery disease) Qualifiers: Coronary Disease-Associated Artery/Lesion type: unspecified vessel or lesion type [place] vs. transplanted heart: [place] heart Associated angina: with unstable angina Qualified Code(s): I25.110 - Atherosclerotic heart disease of [place] coronary artery with unstable angina pectoris Is this a current diagnosis for this admission?: Yes (6) Hypertension Qualifiers: Hypertension type: unspecified Qualified Code(s): I10 - Essential (primary) hypertension Is this a current diagnosis for this admission?: Yes (7) PVD (peripheral vascular disease) Is this a current diagnosis for this admission?: Yes Plan: Status post left middle finger amputation currently on wound VAC. (8) Type 2 diabetes mellitus Qualifiers: Diabetes mellitus terminal superintendent insulin use: with terminal superintendent use Diabetes mellitus complication status: with other specified complication Qualified Code(s): E11.69 - Type 2 diabetes mellitus with other specified complication; Z79.4 - long term acute care registered nurse (current) use of insulin; Z79.4 - [facility] (current) use of insulin; Z79.4 - long term acute care registered nurse (current) use of insulin; Z79.4 - [facility] (current) use of insulin Is this a current diagnosis for this admission?: Yes - Time Time with patient: 15-25 minutes
[2019-03-14] MEDS: ATORVASTATIN CALCIUM 40 MG TABLET PO SCH (21:47)
[2019-03-15] MEDS: METRONIDAZOLE 500 MG/NS RTU 500 MG/100 ML RTUPB IV SCH (05:13)
[2019-03-15] MEDS: HEPARIN SOD (PORCINE) 5,000 UNIT/ML 1 ML VIAL SUBCUT SCH (05:18)
[2019-03-15 05:27] LABS: HEMATOCRIT 31.5 % (37.9-51.0); HEMOGLOBIN 10.1 g/dL (13.5-17.0); MEAN CORPUSCULAR HEMOGLOBIN 30.2 pg (27.0-33.4); MEAN CORPUSCULAR HGB CONC 32.1 g/dL (32.0-36.0); MEAN CORPUSCULAR VOLUME 94 fl (80-97); PLATELET COUNT 143 10^3/uL (150-450); RED BLOOD COUNT 3.34 10^6/uL (4.35-5.55); RED CELL DISTRIBUTION WIDTH 24.2 % (11.5-14.0); WHITE BLOOD COUNT 3.6 10^3/uL (4.0-10.5)
[2019-03-15] MEDS: OXYCODONE-ACETAMINOPHEN 5-325 MG TABLET PO PRN (05:49)
[2019-03-15 05:58] LABS: ABSOLUTE LYMPHOCYTES# (MANUAL) 0.5 10^3/uL (0.5-4.7); ABSOLUTE MONOCYTES # (MANUAL) 0.4 10^3/uL (0.1-1.4); BAND NEUTROPHILS % (MANUAL) 2 % (3-5); BASOPHILS % (MANUAL) 2 % (0-2); EOSINOPHILS % (MANUAL) 8 % (0-6); LYMPHOCYTES % (MANUAL) 14 % (13-45); MONOCYTES % (MANUAL) 12 % (3-13); SEGMENTED NEUTROPHILS % (MAN) 62 % (42-78); TOTAL CELLS COUNTED 50
[2019-03-15 05:59] LABS: ANISOCYTOSIS 3+; OVALOCYTES SLIGHT; PLATELET COMMENT ADEQUATE; POIKILOCYTOSIS 1+; TARGET CELLS SLIGHT; TEAR DROP CELLS SLIGHT
--- NOTE | 2019-03-15 07:44 | EKG REPORT ---
SEVERITY:- ABNORMAL ECG - SINUS RHYTHM FIRST DEGREE AV BLOCK RIGHT BUNDLE BRANCH BLOCK : Confirmed by: Marco Antonio Padilla MD 15-Mar-2019 07:42:57
[2019-03-15] MEDS ORDERED: CALCIUM ACETATE 667 MG CAPSULE PO SCH (08:00)
[2019-03-15] MEDS: INSULIN LISPRO 100 UNIT/ML 3 ML VIAL SUBCUT SCH (08:26)
[2019-03-15] MEDS: CEFEPIME 1 GM/D5W RTU 1 GM/50 ML RTUPB IV SCH (09:07)
[2019-03-15] MEDS: MIDODRINE HCL 5 MG TABLET PO SCH (09:11)
[2019-03-15] MEDS: MUPIROCIN 2% OINTMENT 22 GM TOP SCH (09:11)
[2019-03-15] MEDS: ASPIRIN 81 MG TABLET, ENT COATED PO SCH (09:11)
[2019-03-15] MEDS: CLOPIDOGREL BISULFATE 75 MG TABLET PO SCH (09:11)
[2019-03-15] MEDS: GABAPENTIN 100 MG CAPSULE PO SCH (09:11)
[2019-03-15 09:38] VITALS: BP 168/74
--- NOTE | 2019-03-15 16:28 | PDOC DISCHARGE SUMMARY ---
Impression - Admit/DC Date/PCP Admission Date/Primary Care Provider: 03/12/19 12:10 FEI ZULETA MD Discharge Date: 03/15/19 - Discharge Diagnosis (1) Altered mental status Is this a current diagnosis for this admission?: Yes (2) Acute diarrhea Is this a current diagnosis for this admission?: Yes (3) Chronic atrial fibrillation Is this a current diagnosis for this admission?: Yes (4) Hyperkalemia Is this a current diagnosis for this admission?: Yes (5) CKD (chronic kidney disease) stage V requiring chronic dialysis Is this a current diagnosis for this admission?: Yes (6) CAD (coronary artery disease) Is this a current diagnosis for this admission?: Yes (7) Chest wall pain following surgery Is this a current diagnosis for this admission?: Yes (8) Chronic pain syndrome Is this a current diagnosis for this admission?: Yes (9) Congestive heart failure Is this a current diagnosis for this admission?: Yes (10) Diabetes mellitus Is this a current diagnosis for this admission?: Yes (11) PVD (peripheral vascular disease) Is this a current diagnosis for this admission?: Yes (12) Open wound of left hand Is this a current diagnosis for this admission?: Yes - Assessment Summary: This is 63-year-old male's with end-stage renal disease on hemodialysis with the multiple medical problems multiple hospital admissions with the noncompliance recently have a left hand osteomyelitis status post amputations in the [facility] several cardiac work-up done significant coronary diseaseMissed dialysis on Tuesday because he does not like to go came to the emergency department with the not feeling well altered mental status and patient's potassium was 7.1 and patient underwent for the hemodialysis emergently Patient was admitting in the hospital to rule out any infectious process patient's culture is all negative's patient's C. difficile 1 is +2 is negative the PCR is negative patient does not have any diarrhea anymore Patient has a wound VAC was seen by the general surgery in the hospital continues to current management Patient's most likely altered mental status due to the encephalopathy due to the missing the dialysis patient's cultures all negative CT of the head was negative Patient seen by the cardiology Dr. Angel suggest no need for cardiac interventions continues to current medications Very extensive discussions with the regarding the patient's current conditions with the multiple hospital admissions patients does not want to go to the rehab facility patients wants to go to the home with home health Overall prognosis is very poor discussed with the regarding the patient's current conditions Patient seen by nephrology Dr. Elizondo seen by the Dr. Angel and general surgery - Additional Information Resuscitation Status: Full Code Discharge Diet: Diabetic Discharge Activity: Activity As Tolerated, Balance Activity w/Rest Referrals: SHAWNA ULLOA MD [NO LOCAL MD] - 03/21/19 2:45 pm FEI ZULETA MD [Primary Care Provider] - 03/20/19 2:15 pm (f/u with cardilogy f/u with surgery home [facility] ) Home Medications: Aspirin [Adult Low Dose Aspirin EC] 81 mg PO DAILY 03/12/19 Atorvastatin Calcium [Lipitor 40 mg Tablet] 40 mg PO QHS 03/12/19 Calcium Acetate [Phoslo 667 mg Capsule] 667 mg PO MEALS 03/12/19 Clopidogrel Bisulfate [Plavix 75 mg Tablet] 75 mg PO DAILY 03/12/19 Diclofenac Sodium [Voltaren] 4 gm TD QID 03/12/19 Gabapentin [Neurontin 100 mg Capsule] 100 mg PO Q12 03/12/19 Hydrocodone/Acetaminophen [[place] 10-325 mg Tablet] 1 tab PO Q8HP PRN 03/12/19 Insulin Glargine,Hum.rec.anlog [Lantus Insulin 100 Unit/1 ml 10 ml] 5 units SQ DAILY 03/12/19 Midodrine HCl 2.5 mg PO TID 03/12/19 Mupirocin [Bactroban 2% Ointment 22 gm] 1 applic TOP BID 03/12/19 Nitroglycerin [Nitrostat 0.4 mg (1/150 Gr) Tabs 25/Bottle] 0.4 ml SL Q5MP PRN 03/12/19 Ondansetron HCl [Zofran 4 mg Tablet] 4 mg PO Q6HP PRN 03/12/19 History of Present Illiness History of Present Illness: CHAPITO LESLIE is a 63 year old male This is a 63-year-old male's with the history of the type 2 diabetes mellitusHistory of the end-stage renal disease on hemodialysisHistory of the significant peripheral vascular disease status post right knee amputations and also have a left third metacarpal amputations last week due to the osteomyelitisWith a history of the significant coronary artery disease status post bypass stent and multiple hospital admissions history of cardiac arrest chronic respiratory failures on home oxygen's and currently multiple hospital admission at [facility] to the emergency department by EMS because of the fall and altered mental status this morning According to the patient's was very weak and fall and EMS brought to the ER while patient appropriate answer the questions patient is very poor historian per ER physicians but patient always scant very depressed and answering the questions very slowly In the emergency department patient's potassium was 7.1And patient supposed to have scheduled for dialysis this morning underwent for the emergency dialysis today currently doing better Recent CT head was negative for any acute strokes Being the [place] discharge summary with the patient MRI of the left hand was negative. Osteomyelitis patient seen by the infectious disease and patient seen by the vascular surgeon Patient was giving cefepime vancomycin and Flagyl empirically in the hospital but I do not think so to give any antibiotic on the discharge patient is currently have a wound VAC and follow-up with the wound care Patient also have ongoing problems with the chest wall pain with the wire status post bypass have a follow-up appointment to the CT surgeon to remove it in [place] in the next week Patient is otherwise denied any chest pain to than any shortness of the breath Physical Exam Vital Signs: Temp Pulse Resp BP Pulse Ox 98.6 F 50 L 20 150/68 H 100 03/15/19 08:36 03/15/19 08:36 03/15/19 08:36 03/15/19 08:36 03/15/19 08:36 Intake & Output 03/14/19 03/15/19 03/16/19 06:59 06:59 06:59 Intake Total 300 650 Output Total 500 Balance 300 150 Weight 73.3 kg 78.1 kg Results Laboratory Results: WBC 3.6 10^3/uL (4.0-10.5) L 03/15/19 04:19 RBC 3.34 10^6/uL (4.35-5.55) L 03/15/19 04:19 Hgb 10.1 g/dL (13.5-17.0) L 03/15/19 04:19 Hct 31.5 % (37.9-51.0) L 03/15/19 04:19 MCV 94 fl (80-97) 03/15/19 04:19 MCH 30.2 pg (27.0-33.4) 03/15/19 04:19 MCHC 32.1 g/dL (32.0-36.0) 03/15/19 04:19 RDW 24.2 % (11.5-14.0) H 03/15/19 04:19 Plt Count 143 10^3/uL (150-450) L 03/15/19 04:19 Lymph % (Auto) Not Reportable 03/15/19 04:19 [place] % (Auto) Not Reportable 03/15/19 04:19 Eos % (Auto) Not Reportable 03/15/19 04:19 Baso % (Auto) Not Reportable 03/15/19 04:19 Absolute Neuts (auto) Not Reportable 03/15/19 04:19 Absolute Lymphs (auto) Not Reportable 03/15/19 04:19 Absolute Monos (auto) Not Reportable 03/15/19 04:19 Absolute Eos (auto) Not Reportable 03/15/19 04:19 Absolute Basos (auto) Not Reportable 03/15/19 04:19 Total Counted 50 03/15/19 04:19 Seg Neutrophils % Not Reportable 03/15/19 04:19 Seg Neuts % (Manual) 62 % (42-78) 03/15/19 04:19 Band Neutrophils % 2 % (3-5) L 03/15/19 04:19 Lymphocytes % (Manual) 14 % (13-45) 03/15/19 04:19 Monocytes % (Manual) 12 % (3-13) 03/15/19 04:19 Eosinophils % (Manual) 8 % (0-6) H 03/15/19 04:19 Basophils % (Manual) 2 % (0-2) 03/15/19 04:19 Metamyelocytes % 1 % (0) H 03/14/19 05:46 Abs Neuts (Manual) 2.3 10^3/uL (1.7-8.2) 03/15/19 04:19 Abs Lymphs (Manual) 0.5 10^3/uL (0.5-4.7) 03/15/19 04:19 Abs Monocytes (Manual) 0.4 10^3/uL (0.1-1.4) 03/15/19 04:19 Absolute Eos (Manual) 0.3 10^3/uL (0.0-0.6) 03/15/19 04:19 Abs Basophils (Manual) 0.1 10^3/uL (0.0-0.2) 03/15/19 04:19 Nucleated RBCs 3 /100 WBC (0) 03/14/19 05:46 Platelet Comment ADEQUATE 03/15/19 04:19 Polychromasia SLIGHT 03/12/19 07:53 Hypochromasia SLIGHT 03/14/19 05:46 Poikilocytosis 1+ 03/15/19 04:19 Anisocytosis 3+ 03/15/19 04:19 Target Cells SLIGHT 03/15/19 04:19 Tear Drop Cells SLIGHT 03/15/19 04:19 Ovalocytes SLIGHT 03/15/19 04:19 Schistocytes SLIGHT 03/14/19 05:46 Carbonic Acid 1.28 mmol/L (1.05-1.35) 03/12/19 18:30 HCO3/H2CO3 Ratio 19:1 03/12/19 18:30 ABG pH 7.39 (7.35-7.45) 03/12/19 18:30 ABG pCO2 42.4 mmHg (35-45) 03/12/19 18:30 ABG pO2 77.5 mmHg (80-100) L 03/12/19 18:30 ABG HCO3 24.9 mmol/L (20-24) H 03/12/19 18:30 ABG Total CO2 26.2 mmol/L (23-27) 03/12/19 18:30 ABG O2 Saturation 95.3 % (94-98) 03/12/19 18:30 ABG Base Excess -0.1 mmol/L 03/12/19 18:30 VBG pH 7.19 (7.30-7.42) L* 03/12/19 07:53 VBG pCO2 44.6 mmHg (35-63) 03/12/19 07:53 VBG HCO3 16.8 mmol/L (20-32) L 03/12/19 07:53 VBG Base Excess -11.1 mmol/L 03/12/19 07:53 FiO2 21% 03/12/19 18:30 Sodium 135.3 mmol/L (137-145) L 03/14/19 05:46 Potassium 5.6 mmol/L (3.6-5.0) H 03/14/19 05:46 Chloride 98 mmol/L (98-107) 03/14/19 05:46 Carbon Dioxide 21 mmol/L (22-30) L 03/14/19 05:46 Anion Gap 16 (5-19) 03/14/19 05:46 BUN 54 mg/dL (7-20) H 03/14/19 05:46 Creatinine 10.76 mg/dL (0.52-1.25) H 03/14/19 05:46 Est GFR ( Amer) 6 (>60) L 03/14/19 05:46 Est GFR (MDRD) Non-Af 5 (>60) L 03/14/19 05:46 Glucose 81 mg/dL (75-110) 03/14/19 05:46 POC Glucose 80 mg/dL (70-110) 03/15/19 07:56 Lactic Acid 1.9 mmol/L (0.7-2.1) 03/12/19 07:53 Calcium 8.7 mg/dL (8.4-10.2) 03/14/19 05:46 Phosphorus 9.4 mg/dL (2.5-4.5) H 03/14/19 05:46 Magnesium 2.3 mg/dL (1.6-2.3) 03/15/19 04:19 Total Bilirubin 0.8 mg/dL (0.2-1.3) 03/12/19 07:53 Direct Bilirubin 0.7 mg/dL (0.0-0.4) H 03/12/19 07:53 Neonat Total Bilirubin Not Reportable 03/12/19 07:53 Neonat Direct Bilirubin Not Reportable 03/12/19 07:53 Neonat Indirect Bili Not Reportable 03/12/19 07:53 AST 22 U/L (17-59) 03/12/19 07:53 ALT 9 U/L (<50) 03/12/19 07:53 Alkaline Phosphatase 99 U/L (38-126) 03/12/19 07:53 Creatine Kinase 202 U/L (55-170) H 03/13/19 01:02 CK-MB (CK-2) 3.51 ng/mL (<4.55) 03/13/19 01:02 Troponin I 0.197 ng/mL 03/13/19 01:02 Total Protein 9.3 g/dL (6.3-8.2) H 03/12/19 07:53 Albumin 4.4 g/dL (3.5-5.0) 03/12/19 07:53 Stl C. Difficile GDH Ag POSITIVE (NEGATIVE) 03/12/19 18:05 Stl C.difficile Tox A&B NEGATIVE (NEGATIVE) 03/12/19 18:05 Stl C.difficile Tox PCR NEGATIVE (NEGATIVE) 03/12/19 18:05 03/12/19 03/12/19 03/12/19 07:53 12:28 18:38 CK-MB (CK-2) 3.57 3.26 Troponin I 0.043 0.045 0.060 03/13/19 01:02 CK-MB (CK-2) 3.51 Troponin I 0.197 Impressions: Head CT 03/12/19 00:00 IMPRESSION: No acute intracranial pathology. EVIDENCE OF ACUTE STROKE: NO. Chest X-Ray 03/12/19 11:10 IMPRESSION: Cardiomegaly without pulmonary edema. Subsegmental atelectasis. Plan Goals: Patient has appt with Fabrizio Carbajal PA-C, PA at [address] [place] [address] ([phone]) Stroke Is this a Stroke Patient?: No Acute Heart Failure - Is this a Heart Failure Patient?: No
== END 2019-03-15 11:03 | disposition home health service (06) | DRG 640 ==
LOC: ER 07:00 → EH 12:10 → 3N 16:47
PROVIDERS: ADMIT Family Medicine; ATTEND Family Medicine
PROC: 5A1D70Z Performance of Urinary Filtration, Intermittent, Less than 6 Hours Per Day (ICD-10-PCS; principal; 2019-03-12)
DX: E87.5 Hyperkalemia (principal); G93.41 Metabolic encephalopathy; N18.6 End stage renal disease; I48.20 Chronic atrial fibrillation, unspecified; I50.42 Chronic combined systolic (congestive) and diastolic (congestive) heart failure; I13.2 Hypertensive heart and chronic kidney disease with heart failure and with stage 5 chronic kidney disease, or end stage renal disease; G89.4 Chronic pain syndrome; I25.10 Atherosclerotic heart disease of native coronary artery without angina pectoris; E11.22 Type 2 diabetes mellitus with diabetic chronic kidney disease; Z99.2 Dependence on renal dialysis; E11.51 Type 2 diabetes mellitus with diabetic peripheral angiopathy without gangrene; K21.9 Gastro-esophageal reflux disease without esophagitis; F32.9 Major depressive disorder, single episode, unspecified; R07.89 Other chest pain; R19.7 Diarrhea, unspecified; D63.1 Anemia in chronic kidney disease; Z89.022 Acquired absence of left finger(s); Z95.1 Presence of aortocoronary bypass graft; Z89.511 Acquired absence of right leg below knee; Z79.82 Long term (current) use of aspirin; Z79.4 Long term (current) use of insulin; Z97.8 Presence of other specified devices; Z88.1 Allergy status to other antibiotic agents; Z88.5 Allergy status to narcotic agent; Z91.15 Patient's noncompliance with renal dialysis; Z79.02 Long term (current) use of antithrombotics/antiplatelets; Z91.81 History of falling; I25.2 Old myocardial infarction; Z79.899 Other long term (current) drug therapy
CPT/HCPCS: 36415; 36600; 70450; 71045; 80048; 80053; 82550; 82553; 82803; 82962; 83605; 83735; 84100; 84484; 85025; 87040; 87045; 87205; 87324; 87449; 87493; 93005; 93010; 94640; 96374; 96375; 99291; J0360; J0610; J0692; J1644; J3490; Q5105

== ENCOUNTER 2019-04-30 09:17 | Emergency (ER) | payer OTHER, MEDICARE ==
--- NOTE | 2019-04-30 10:02 | ER Document Report ---
ED Medical Screen (RME) - General Chief Complaint: Hand Pain Stated Complaint: FINGER PAIN, BODY PAIN, Time Seen by Provider: 04/30/19 09:58 Primary Care Provider: FEI ZULETA MD [Primary Care Provider] - Follow up as needed Mode of Arrival: Ambulatory Information source: Patient Notes: 64-year-old man presented to ED for diabetic ulcers to both hands all fingers and his left foot. History of kidney failure on dialysis diabetes and has ulcers to all the end of his fingers. Blood work and x-ray will be completed in pit. I have greeted and performed a rapid initial assessment of this patient. A comprehensive ED assessment and evaluation of the patient, analysis of test results and completion of medical decision making process will be conducted by an additional ED providers. TRAVEL OUTSIDE OF THE [place] IN LAST 30 DAYS: No - Related Data Allergies/Adverse Reactions: erythromycin base Allergy (Verified 03/12/19 07:04) vancomycin [Vancomycin] Adverse Reaction (Unknown, Verified 03/12/19 07:04) molina syndrome morphine Adverse Reaction (Verified 03/12/19 07:04) Past Medical History - Social History Frequency of alcohol use: None Drug Abuse: None - Past Medical History Cardiac Medical History: Reports: Hx Atrial Fibrillation, Hx Congestive Heart Failure, Hx Coronary Artery Disease, Hx Heart Attack - x3, Hx Hypertension, Hx Peripheral Vascular Disease Pulmonary Medical History: Reports: Hx COPD, Hx Respiratory Failure Denies: Hx Asthma, Hx Bronchitis, Hx Pneumonia Neurological Medical History: Denies: Hx Cerebrovascular Accident, Hx Seizures Endocrine Medical History: Reports: Hx Diabetes Mellitus Type 1, Hx Diabetes Mellitus Type 2 Renal/ Medical History: Reports: Hx End Stage Renal Disease, Hx Hemodialysis, Hx Renal Insufficiency. Denies: Hx Peritoneal Dialysis GI Medical History: Reports: Hx Gastroesophageal Reflux Disease. Denies: Hx Hepatitis, Hx Hiatal Hernia, Hx Ulcer Musculoskeltal Medical History: Denies Hx Arthritis Skin Medical History: Denies Hx Psoriasis Psychiatric Medical History: Reports: Hx Depression Traumatic Medical History: Denies: Hx Traumatic Brain Injury Infectious Medical History: Denies: Hx Hepatitis Past Surgical History: Reports: Hx Cardiac Catheterization, Hx Cardiac Surgery - triple bypass, Hx Coronary Artery Bypass Graft - X3 vessel on October 26, 2017, Hx Coronary Stent, Hx Orthopedic Surgery - R great toe amp. L 3rd/4th toe amp. R BKA. L 3rd finger amp., Hx Vascular Surgery, Other - Cervical laminectomy in 201 3. Denies: Hx Open Heart Surgery, Hx Pacemaker - Immunizations Hx Diphtheria, Pertussis, Tetanus Vaccination: Yes Physical Exam - Vital signs Vitals: Temp Pulse Resp Pulse Ox 97.7 F 70 16 100 04/30/19 09:22 04/30/19 09:22 04/30/19 09:22 04/30/19 09:22 Course - Vital Signs Vital signs: Temp Pulse Resp BP Pulse Ox 97.7 F 70 16 100 04/30/19 09:22 04/30/19 09:22 04/30/19 09:22 04/30/19 09:22 Doctor's Discharge - Discharge Referrals: FEI ZULETA MD [Primary Care Provider] - Follow up as needed
--- NOTE | 2019-04-30 10:55 | RADIOLOGY REPORT (SQ) ---
EXAM DESCRIPTION: FOOT LEFT COMPLETE COMPLETED DATE/TIME: 04/30/2019 10:44 am REASON FOR STUDY: diabetic sores COMPARISON: None. NUMBER OF VIEWS: Three views. TECHNIQUE: AP, lateral and oblique without weight bearing radiographic images acquired of the left f oot. LIMITATIONS: None. FINDINGS: MINERALIZATION: Normal. BONES: No acute fracture or dislocation. Previous amputation of the 3rd and 4th digits. No worrisom e bone lesions. Calcaneal spurs. JOINTS: No erosions. No roseanne-articular osteopenia. No chondrocalcinosis. SOFT TISSUES: No swelling. No calcifications. OTHER: No other significant finding. IMPRESSION: CHRONIC CHANGES DESCRIBED. NO ACUTE FINDINGS. TECHNICAL DOCUMENTATION: JOB ID: [id number] [employer]- All Rights Reserved Reading location - IP/workstation name: [email or web address]
--- NOTE | 2019-04-30 10:57 | RADIOLOGY REPORT (SQ) ---
EXAM DESCRIPTION: HAND BILATERAL 3 VIEWS COMPLETED DATE/TIME: 04/30/2019 10:44 am REASON FOR STUDY: diabetic sores COMPARISON: None. EXAM PARAMETERS: NUMBER OF VIEWS: Three views. TECHNIQUE: AP, lateral and oblique radiographic images acquired of the right and left hand. LIMITATIONS: None. FINDINGS: MINERALIZATION: Normal. BONES: No acute fracture or dislocation. No worrisome bone lesions. Previous amputation of the 3rd fi nger at the metacarpal level. JOINTS: No erosions. No roseanne-articular osteopenia. No chondrocalcinosis. SOFT TISSUES: Soft tissue deformities of the distal end of the right 2nd, 3rd, and 4th fingers and of the left 2nd finger. OTHER: No other significant finding. IMPRESSION: DISTAL SOFT TISSUE DEFORMITIES OF SEVERAL FINGERS DESCRIBED. NO ACUTE BONY FINDINGS. TECHNICAL DOCUMENTATION: JOB ID: [id number] [employer]- All Rights Reserved Reading location - IP/workstation name: [email or web address]
[2019-04-30 12:11] LABS: ALBUMIN 3.9 g/dL (3.5-5.0); ALKALINE PHOSPHATASE 110 U/L (38-126); ANION GAP 11 (5-19); ASPARTATE AMINO TRANSFERASE 27 U/L (17-59); BILIRUBIN,DIRECT 0.7 mg/dL (0.0-0.4); BILIRUBIN,TOTAL 1.1 mg/dL (0.2-1.3); BLOOD UREA NITROGEN 18 mg/dL (7-20); CALCIUM 8.7 mg/dL (8.4-10.2); CARBON DIOXIDE 29 mmol/L (22-30); CHLORIDE 98 mmol/L (98-107); GLUCOSE 143 mg/dL (75-110); POTASSIUM 4.4 mmol/L (3.6-5.0); TOTAL PROTEIN 8.9 g/dL (6.3-8.2)
[2019-04-30] MEDS ORDERED: OXYCODONE HCL SR 10 MG TABLET PO ONE ×2 (13:18→13:33)
--- NOTE | 2019-04-30 13:24 | ER Document Report ---
ED General - General Chief Complaint: Hand Pain Stated Complaint: FINGER PAIN, BODY PAIN, Time Seen by Provider: 04/30/19 09:58 Primary Care Provider: FEI ZULETA MD [Primary Care Provider] - Follow up as needed Mode of Arrival: Ambulatory Notes: 64-year-old male with history of diabetes and kidney disease presents for pain to bilateral hands and left foot. Patient has a history of ulcers to his fingers and left foot that are currently being treated by wound care for. Patient denies any fever or any pus drainage. Patient states he goes to pain management and ran out of his oxycodone 15 mg 3 days ago. Patient states he has an appointment with pain management tomorrow. Patient denies any chest pain, dyspnea, abdominal pain, or nausea/vomiting. TRAVEL OUTSIDE OF THE [place] IN LAST 30 DAYS: No - Related Data Allergies/Adverse Reactions: erythromycin base Allergy (Verified 03/12/19 07:04) vancomycin [Vancomycin] Adverse Reaction (Unknown, Verified 03/12/19 07:04) molina syndrome morphine Adverse Reaction (Verified 03/12/19 07:04) Past Medical History - General Information source: Patient - Social History Smoking Status: Former Smoker Frequency of alcohol use: None Drug Abuse: None Family History: Reviewed & Not Pertinent, CAD, Hypertension, Malignancy Patient has suicidal ideation: No Patient has homicidal ideation: No - Past Medical History Cardiac Medical History: Reports: Hx Atrial Fibrillation, Hx Congestive Heart Failure, Hx Coronary Artery Disease, Hx Heart Attack - x3, Hx Hypertension, Hx Peripheral Vascular Disease Pulmonary Medical History: Reports: Hx COPD, Hx Respiratory Failure Denies: Hx Asthma, Hx Bronchitis, Hx Pneumonia Neurological Medical History: Denies: Hx Cerebrovascular Accident, Hx Seizures Endocrine Medical History: Reports: Hx Diabetes Mellitus Type 1, Hx Diabetes Mellitus Type 2 Renal/ Medical History: Reports: Hx End Stage Renal Disease, Hx Hemodialysis, Hx Renal Insufficiency. Denies: Hx Peritoneal Dialysis GI Medical History: Reports: Hx Gastroesophageal Reflux Disease. Denies: Hx Hepatitis, Hx Hiatal Hernia, Hx Ulcer Musculoskeletal Medical History: Denies Hx Arthritis Skin Medical History: Denies Hx Psoriasis Psychiatric Medical History: Reports: Hx Depression Traumatic Medical History: Denies: Hx Traumatic Brain Injury Infectious Medical History: Denies: Hx Hepatitis Past Surgical History: Reports: Hx Cardiac Catheterization, Hx Cardiac Surgery - triple bypass, Hx Coronary Artery Bypass Graft - X3 vessel on October 26, 2017, Hx Coronary Stent, Hx Orthopedic Surgery - R great toe amp. L 3rd/4th toe amp. R BKA. L 3rd finger amp., Hx Vascular Surgery, Other - Cervical laminectomy in 2012. Denies: Hx Open Heart Surgery, Hx Pacemaker - Immunizations Hx Diphtheria, Pertussis, Tetanus Vaccination: Yes Hx Pneumococcal Vaccination: 02/05/15 Review of Systems - Review of Systems Notes: Constitutional: Negative for fever. HENT: Negative for sore throat. Eyes: Negative for visual changes. Cardiovascular: Negative for chest pain. Respiratory: Negative for shortness of breath. Gastrointestinal: Negative for abdominal pain, vomiting or diarrhea. Genitourinary: Negative for dysuria. Musculoskeletal: Positive for bilateral hand pain and left foot pain. Negative for back pain. Skin: Negative for rash. Neurological: Negative for headaches, weakness or numbness. 10 point ROS negative except as marked above and in HPI. Physical Exam - Vital signs Vitals: Temp Pulse Resp Pulse Ox 97.7 F 70 16 100 04/30/19 09:22 04/30/19 09:22 04/30/19 09:22 04/30/19 09:22 - Notes Notes: GENERAL: Well-appearing, well-nourished and in no acute distress. HEAD: Atraumatic, normocephalic. EYES: Extraocular movements intact, sclera anicteric, conjunctiva are normal. NECK: Normal range of motion, supple without lymphadenopathy or JVD. LUNGS: Breath sounds clear to auscultation bilaterally and equal. No wheezes rales or rhonchi. HEART: Regular rate and rhythm without murmurs, rubs or gallops. EXTREMITIES: Chronic ulcers noted to fingertips of bilateral hands. Patient does have amputation to left hand. No erythema or pus noted. Not hot to touch. Full range of motion to hand and fingers. Left foot distal pedal pulses 2+. No erythema. No pus drainage. Not hot to touch. Normal range of motion, no pitting or edema. No cyanosis. NEUROLOGICAL: Cranial nerves II through XII grossly intact. Normal speech, normal gait. PSYCH: Normal mood, normal affect. SKIN: Warm, Dry, normal turgor, no rashes or lesions noted. Course - Re-evaluation Re-evalutation: 04/30/19 64-year-old male presents for pain to bilateral hands and left foot due to chronic diabetic ulcers. Patient is currently being seen by wound care for same. Ulcers noted with no erythema or pus drainage. Not hot to touch. Patient is afebrile, not tachycardic, not hypoxic. Patient states he ran out of his pain medication 3 days ago. Patient sees pain management and receives oxycodone 15 mg. Patient has an appointment with pain management tomorrow. Explained to the patient cannot give patient prescription for pain medicine however could give 1 dose here. X-rays reveal chronic changes and ulcers. Awaiting CBC. 04/30/19 14:01 Kidney labs improved from previous. CBC shows no leukocytosis. 04/30/19 14:07 Discussed with attending, Dr. Davis, who agrees with plan of care. - Vital Signs Vital signs: Temp Pulse Resp BP Pulse Ox 97.7 F 70 16 120/62 100 04/30/19 09:22 04/30/19 09:22 04/30/19 09:22 04/30/19 10:01 04/30/19 09:22 - Laboratory Result Diagrams: 04/30/19 13:08 04/30/19 11:34 Laboratory results interpreted by me: 04/30/19 04/30/19 04/30/19 11:34 11:43 13:08 RBC 3.70 L Hgb 11.3 L Hct 35.9 L MCHC 31.5 L RDW 24.8 H Lymph % (Auto) 7.2 L Baso % (Auto) 2.1 H Seg Neutrophils % 78.3 H Creatinine 5.06 H Est GFR ( Amer) 14 L Est GFR (MDRD) Non-Af 12 L Glucose 143 H POC Glucose 144 H Direct Bilirubin 0.7 H Total Protein 8.9 H Discharge - Discharge Clinical Impression: Left foot pain Hand pain Qualifiers: Laterality: bilateral Qualified Code(s): M79.641 - Pain in right hand; M79.642 - Pain in left hand Condition: Stable Disposition: HOME, SELF-CARE Additional Instructions: Your lab work is either at baseline or improved from previous. Please follow-up with your pain management doctor tomorrow for further prescriptions for your oxycodone. Please return to ER for any worsening symptoms including fevers, pus drainage, redness, increased pain/swelling, or any other concerning symptoms to you. Referrals: FEI ZULETA MD [Primary Care Provider] - Follow up in 3-5 days
[2019-04-30 13:34] LABS: ABSOLUTE BASOPHILS # (AUTO) 0.1 10^3/uL (0.0-0.2); ABSOLUTE EOSINOPHILS # (AUTO) 0.3 10^3/uL (0.0-0.6); ABSOLUTE LYMPHOCYTES (AUTO) 0.5 10^3/uL (0.5-4.7); ABSOLUTE MONOCYTES (AUTO) 0.6 10^3/uL (0.1-1.4); ABSOLUTE NEUT (AUTO) 5.5 10^3/uL (1.7-8.2); BASOPHILS % (AUTO) 2.1 % (0-2); EOSINOPHILS % (AUTO) 4.1 % (0-6); HEMATOCRIT 35.9 % (37.9-51.0); HEMOGLOBIN 11.3 g/dL (13.5-17.0); LYMPHOCYTES % (AUTO) 7.2 % (13-45); MEAN CORPUSCULAR HEMOGLOBIN 30.6 pg (27.0-33.4); MEAN CORPUSCULAR HGB CONC 31.5 g/dL (32.0-36.0); MEAN CORPUSCULAR VOLUME 97 fl (80-97); MONOCYTES % (AUTO) 8.3 % (3-13); PLATELET COUNT 200 10^3/uL (150-450); RED CELL DISTRIBUTION WIDTH 24.8 % (11.5-14.0); SEGMENTED NEUTROPHILS % (AUTO) 78.3 % (42-78); TOTAL CELLS COUNTED % (AUTO) 100 %
[2019-04-30 13:56] LABS: ANISOCYTOSIS 3+; OVALOCYTES 1+; POIKILOCYTOSIS 1+; TARGET CELLS SLIGHT
[2019-04-30 13:57] LABS: PLATELET COMMENT ADEQUATE
[2019-04-30] MEDS ORDERED: OXYCODONE HCL IR 5 MG TABLET PO ONE (14:12)
[2019-04-30 14:40] VITALS: BP 141/62
--- NOTE | 2019-04-30 23:51 | EKG REPORT ---
SEVERITY:- ABNORMAL ECG - PROBABLE SINUS RHYTHM RIGHT BUNDLE BRANCH BLOCK REC REPEAT EKG, CAN NOT R/O A FIB : Confirmed by: Rachid Eugene 30-Apr-2019 23:51:17
== END 2019-04-30 14:38 | disposition home or self-care (01) ==
LOC: ER 09:17
DX: E11.622 Type 2 diabetes mellitus with other skin ulcer (principal); L98.499 Non-pressure chronic ulcer of skin of other sites with unspecified severity; E11.621 Type 2 diabetes mellitus with foot ulcer; L97.529 Non-pressure chronic ulcer of other part of left foot with unspecified severity; E11.51 Type 2 diabetes mellitus with diabetic peripheral angiopathy without gangrene; M79.672 Pain in left foot; M79.641 Pain in right hand; M79.642 Pain in left hand; I12.0 Hypertensive chronic kidney disease with stage 5 chronic kidney disease or end stage renal disease; E11.22 Type 2 diabetes mellitus with diabetic chronic kidney disease; N18.6 End stage renal disease; Z99.2 Dependence on renal dialysis; I25.10 Atherosclerotic heart disease of native coronary artery without angina pectoris; J44.9 Chronic obstructive pulmonary disease, unspecified; Z89.022 Acquired absence of left finger(s); Z89.511 Acquired absence of right leg below knee; Z88.1 Allergy status to other antibiotic agents; Z87.891 Personal history of nicotine dependence; Z95.1 Presence of aortocoronary bypass graft; Z95.5 Presence of coronary angioplasty implant and graft
CPT/HCPCS: 36415; 80053; 82962; 85025; 93005; 93010; 99284

== ENCOUNTER 2019-05-22 06:22 | Emergency (ER) | payer OTHER, MEDICARE ==
[2019-05-22] MEDS ORDERED: NORMAL SALINE 1000 ML 1,000 ML IV ONE ×2 (06:36→11:30)
--- NOTE | 2019-05-22 06:52 | ER Document Report ---
ED Extremity Problem, Upper - General Chief Complaint: Arm Pain Stated Complaint: CHEST PAIN Time Seen by Provider: 05/22/19 06:29 Primary Care Provider: FEI ZULETA MD [Primary Care Provider] - Follow up as needed Mode of Arrival: Medic Information source: Patient, Emergency Med Personnel TRAVEL OUTSIDE OF THE [place] IN LAST 30 DAYS: No - HPI Notes: Patient presents by ambulance. Patient has several vague complaints which makes history difficult. Patient complains of bilateral arm pain. States it was difficult to sleep last night. He is also had some chest pain and is been feeling weak. He states the arm pain is intermittent and random. He does not know of anything that makes it better or worse. He states he try shaking both arms but this is not really change the pain. The pain radiates up and down both arms. It appears to be moderate to severe in intensity. It is apparently a sharp pain. Denies any significant cough or fevers. Patient does have chronic peripheral vascular disease with multiple different amputations. He is also on dialysis and states that he did dialyze yesterday for all but 45 minutes of the run. He has had some mild shortness of breath. No known vomiting. - Related Data Allergies/Adverse Reactions: erythromycin base Allergy (Verified 03/12/19 07:04) vancomycin [Vancomycin] Adverse Reaction (Unknown, Verified 03/12/19 07:04) molina syndrome morphine Adverse Reaction (Verified 03/12/19 07:04) Past Medical History - General Information source: Patient - Social History Smoking Status: Former Smoker Frequency of alcohol use: None Drug Abuse: None Family History: Reviewed & Not Pertinent, CAD, Hypertension, Malignancy - Past Medical History Cardiac Medical History: Reports: Hx Atrial Fibrillation, Hx Congestive Heart Failure, Hx Coronary Artery Disease, Hx Heart Attack - x3, Hx Hypertension, Hx Peripheral Vascular Disease Pulmonary Medical History: Reports: Hx COPD, Hx Respiratory Failure Denies: Hx Asthma, Hx Bronchitis, Hx Pneumonia Neurological Medical History: Denies: Hx Cerebrovascular Accident, Hx Seizures Endocrine Medical History: Reports: Hx Diabetes Mellitus Type 1, Hx Diabetes Mellitus Type 2 Renal/ Medical History: Reports: Hx End Stage Renal Disease, Hx Hemodialysis, Hx Renal Insufficiency. Denies: Hx Peritoneal Dialysis GI Medical History: Reports: Hx Gastroesophageal Reflux Disease. Denies: Hx Hepatitis, Hx Hiatal Hernia, Hx Ulcer Musculoskeletal Medical History: Denies Hx Arthritis Skin Medical History: Denies Hx Psoriasis Psychiatric Medical History: Reports: Hx Depression Traumatic Medical History: Denies: Hx Traumatic Brain Injury Infectious Medical History: Denies: Hx Hepatitis Past Surgical History: Reports: Hx Cardiac Catheterization, Hx Cardiac Surgery - triple bypass, Hx Coronary Artery Bypass Graft - X3 vessel on October 26, 2017, Hx Coronary Stent, Hx Orthopedic Surgery - R great toe amp. L 3rd/4th toe amp. R BKA. L 3rd finger amp., Hx Vascular Surgery, Other - Cervical laminectomy in 2012. Denies: Hx Open Heart Surgery, Hx Pacemaker - Immunizations Hx Diphtheria, Pertussis, Tetanus Vaccination: Yes Hx Pneumococcal Vaccination: 02/05/15 Review of Systems - Review of Systems Constitutional: Malaise, Weakness Cardiovascular: Chest pain, Dyspnea Respiratory: Cough, Short of breath -: Yes All other systems reviewed and negative Physical Exam - Vital signs Vitals: Temp Resp BP 98.0 F 18 94/52 L 05/22/19 06:45 05/22/19 06:45 05/22/19 06:45 Interpretation: Hypotensive - General General appearance: Alert In distress: None - HEENT Head: Normocephalic, Atraumatic Eyes: Normal Pupils: PERRL - Respiratory Respiratory status: No respiratory distress Chest status: Nontender Breath sounds: Decreased air movement Chest palpation: Normal - Cardiovascular Rhythm: Regular Heart sounds: Normal auscultation Murmur: No - Abdominal Inspection: Normal Distension: No distension Bowel sounds: Normal Tenderness: Nontender Organomegaly: No organomegaly - Back Back: Normal, Nontender - Extremities General upper extremity: Other - Patient has multiple gangrenous fingers however the site of his arm pain is not evident on exam. All of the examination of the upper extremities appears to be consistent with chronic pathology. General lower extremity: Other - Patient's extremities have multiple gangrenous digits with amputations. The left foot has an active wound that is currently being managed by wound care. This wound does appear to be actively infected with discoloration. - Neurological Neuro grossly intact: Yes Cognition: Normal Orientation: AAOx4 Col[place] Coma Scale Eye Opening: Spontaneous Col[place] Coma Scale Verbal: Oriented Doug Coma Scale Motor: Obeys Commands Col[place] Coma Scale Total: 15 Speech: Normal Motor strength normal: LUE, RUE, LLE, RLE Sensory: Normal - Psychological Associated symptoms: Depressed, Flat affect - Skin Skin Temperature: Warm Skin Moisture: Dry Skin Color: Blackened Course - Re-evaluation Re-evalutation: 05/22/19 09:01 Patient presents with arm pain and low blood pressure. I did call and discussed the case with the patient's primary doctor, Dr. Zuleta. He asked me to have the patient transferred to [facility] is he feels that the patient is too complicated and requires vascular surgery, cardiology and ICU care that is not available here. I called [facility] but they stated that they did not have any beds. I have now called [facility] and they have accepted the patient. Patient does appear to be septic with an initial blood pressure of 75 systolic. And is currently 101 after fluids. There is no obvious source of infection although patient does have numerous peripheral gangrenous digits and a chronic foot wound that could be the source. I have treated the patient with antibiotics at this time. Patient is also receiving sepsis bolus of fluids. Initial lactate is elevated. On reexamination at 9 AM blood pressure is stable. He is not tachycardic. He is resting comfortably and has no complaints. - Vital Signs Vital signs: Temp Pulse Resp BP Pulse Ox 98.1 F 25 H 107/86 H 85 L 05/22/19 11:48 05/22/19 11:31 05/22/19 11:31 05/22/19 11:31 - Laboratory Result Diagrams: 05/22/19 06:42 05/22/19 06:42 Laboratory results interpreted by me: 05/22/19 05/22/19 05/22/19 06:42 06:42 06:42 WBC 28.7 H RBC 3.71 L Hgb 11.0 L Hct 35.3 L MCHC 31.0 L RDW 25.0 H Plt Count 148 L Seg Neuts % (Manual) 90 H Band Neutrophils % 2 L Lymphocytes % (Manual) 2 L Abs Neuts (Manual) 26.4 H PT Sodium 132.4 L Chloride 94 L BUN 37 H Creatinine 6.53 H Est GFR ( Amer) 10 L Est GFR (MDRD) Non-Af 9 L Glucose 122 H Lactic Acid (Sepsis) 2.9 H Total Bilirubin 2.3 H Direct Bilirubin 2.1 H Alkaline Phosphatase 172 H Albumin 3.0 L 05/22/19 07:40 WBC RBC Hgb Hct MCHC RDW Plt Count Seg Neuts % (Manual) Band Neutrophils % Lymphocytes % (Manual) Abs Neuts (Manual) PT 17.6 H Sodium Chloride BUN Creatinine Est GFR ( Amer) Est GFR (MDRD) Non-Af Glucose Lactic Acid (Sepsis) Total Bilirubin Direct Bilirubin Alkaline Phosphatase Albumin - Diagnostic Test Radiology reviewed: Image reviewed, Reports reviewed - EKG Interpretation by Me EKG shows normal: Sinus rhythm Rate: Bradycardia - 53 Rhythm: A.Fib [place]/QRS: RBBB Critical Care Note - Critical Care Note Total time excluding time spent on procedures (mins): 50 Comments: CC time included reviewing labs/imaging, multiple rechecks of pt, discussions with multiple consultants and with medics and patient. Discharge - Discharge Clinical Impression: Gangrene, End stage renal disease, CKD (chronic kidney disease) stage V requi ring chronic dialysis, Necrosis of finger, Gangrene of finger of both hands Sepsis Qualifiers: Sepsis type: sepsis due to unspecified organism Sepsis acute organ dysfunction status: without acute organ dysfunction Qualified Code(s): A41.9 - Sepsis, unspecified organism Atrial fibrillation Qualifiers: Atrial fibrillation type: longstanding persistent Qualified Code(s): I48.11 - Longstanding persistent atrial fibrillation Hypotension Qualifiers: Hypotension type: hemodialysis-associated hypotension Qualified Code(s): I95.3 - Hypotension of hemodialysis Condition: Critical Disposition: [facility] Referrals: FEI ZULETA MD [Primary Care Provider] - Follow up as needed
[2019-05-22 07:28] LABS: ALKALINE PHOSPHATASE 172 U/L (38-126); ANION GAP 16 (5-19); ASPARTATE AMINO TRANSFERASE 17 U/L (17-59); BILIRUBIN,DIRECT 2.1 mg/dL (0.0-0.4); BILIRUBIN,TOTAL 2.3 mg/dL (0.2-1.3); BLOOD UREA NITROGEN 37 mg/dL (7-20); CALCIUM 8.6 mg/dL (8.4-10.2); CARBON DIOXIDE 22 mmol/L (22-30); CHLORIDE 94 mmol/L (98-107); GLUCOSE 122 mg/dL (75-110); POTASSIUM 3.9 mmol/L (3.6-5.0); TOTAL PROTEIN 7.5 g/dL (6.3-8.2)
[2019-05-22 07:29] LABS: HEMATOCRIT 35.3 % (37.9-51.0); MEAN CORPUSCULAR HEMOGLOBIN 29.6 pg (27.0-33.4); MEAN CORPUSCULAR VOLUME 95 fl (80-97); PLATELET COUNT 148 10^3/uL (150-450); RED BLOOD COUNT 3.71 10^6/uL (4.35-5.55); WHITE BLOOD COUNT 28.7 10^3/uL (4.0-10.5)
[2019-05-22 07:37] LABS: ABSOLUTE LYMPHOCYTES# (MANUAL) 0.6 10^3/uL (0.5-4.7); ABSOLUTE MONOCYTES # (MANUAL) 1.4 10^3/uL (0.1-1.4); BAND NEUTROPHILS % (MANUAL) 2 % (3-5); BASOPHILS % (MANUAL) 0 % (0-2); EOSINOPHILS % (MANUAL) 1 % (0-6); LYMPHOCYTES % (MANUAL) 2 % (13-45); MONOCYTES % (MANUAL) 5 % (3-13); SEGMENTED NEUTROPHILS % (MAN) 90 % (42-78); TOTAL CELLS COUNTED 100
[2019-05-22 07:39] LABS: ANISOCYTOSIS 3+; BURR CELLS 2+; OVALOCYTES SLIGHT; PLATELET COMMENT DECREASED; POIKILOCYTOSIS 2+
[2019-05-22 07:48] LABS: VENOUS BLOOD BASE EXCESS -0.3 mmol/L; VENOUS BLOOD HCO3 25.4 mmol/L (20-32); VENOUS BLOOD PCO2 45.8 mmHg (35-63); VENOUS BLOOD PH 7.36 (7.30-7.42)
[2019-05-22 07:57] LABS: INTERNATIONAL RATION (INR) 1.43; PROTHROMBIN TIME 17.6 SEC (11.4-15.4)
[2019-05-22] MEDS ORDERED: AMPICILLIN SOD/SULBACTAM 3 GM VIAL IV ONE (08:18)
--- NOTE | 2019-05-22 08:21 | RADIOLOGY REPORT (SQ) ---
EXAM DESCRIPTION: CHEST SINGLE VIEW COMPLETED DATE/TIME: 05/22/2019 7:08 am REASON FOR STUDY: cough COMPARISON: 03/12/2019 EXAM PARAMETERS: NUMBER OF VIEWS: One view. TECHNIQUE: Single frontal radiographic view of the chest acquired. RADIATION DOSE: NA LIMITATIONS: None. FINDINGS: LUNGS AND PLEURA: Persistent atelectasis in the left base. Possible small left effusion. Lung hargrove are otherwise clear. MEDIASTINUM AND HILAR STRUCTURES: No masses. Contour normal. HEART AND VASCULAR STRUCTURES: Heart remains enlarged. No failure. BONES: No acute findings. HARDWARE: Sternotomy wires are in place. OTHER: No other significant finding. IMPRESSION: Cardiomegaly. Linear atelectasis in the left base. No other significant findings. TECHNICAL DOCUMENTATION: JOB ID: [id number] [employer]- All Rights Reserved Reading location - IP/workstation name: [email or web address]
[2019-05-22 11:48] VITALS: BP 107/86
--- NOTE | 2019-05-22 22:37 | EKG REPORT ---
SEVERITY:- ABNORMAL ECG - ATRIAL FIBRILLATION RIGHT BUNDLE BRANCH BLOCK : Confirmed by: Rachid Eugene 22-May-2019 22:36:38
== END 2019-05-22 11:49 | disposition short-term general hospital (02) ==
LOC: ER 06:22
DX: E11.52 Type 2 diabetes mellitus with diabetic peripheral angiopathy with gangrene (principal); I96 Gangrene, not elsewhere classified; R07.9 Chest pain, unspecified; M79.602 Pain in left arm; M79.601 Pain in right arm; R53.1 Weakness; A41.9 Sepsis, unspecified organism; I95.3 Hypotension of hemodialysis; R53.81 Other malaise; I48.11 Longstanding persistent atrial fibrillation; Z88.3 Allergy status to other anti-infective agents; Z88.6 Allergy status to analgesic agent; I25.2 Old myocardial infarction; E11.22 Type 2 diabetes mellitus with diabetic chronic kidney disease; I13.2 Hypertensive heart and chronic kidney disease with heart failure and with stage 5 chronic kidney disease, or end stage renal disease; I50.9 Heart failure, unspecified; N18.6 End stage renal disease; Z99.2 Dependence on renal dialysis; Z95.1 Presence of aortocoronary bypass graft; Z89.511 Acquired absence of right leg below knee
CPT/HCPCS: 93005; 99285; 96361; 96374; 36415; 87040; 85025; 85610; 80053; 84484; 82803; 83605; 71045; 93010; J0295; J7030

== ENCOUNTER 2019-07-12 09:01 | Day surgery (SDC) | payer MEDICARE, MEDICAID ==
[2019-07-12 09:53] LABS: HEMATOCRIT 31.3 % (37.9-51.0); HEMOGLOBIN 9.8 g/dL (13.5-17.0); MEAN CORPUSCULAR HEMOGLOBIN 31.3 pg (27.0-33.4); MEAN CORPUSCULAR HGB CONC 31.4 g/dL (32.0-36.0); MEAN CORPUSCULAR VOLUME 100 fl (80-97); PLATELET COUNT 153 10^3/uL (150-450); RED BLOOD COUNT 3.15 10^6/uL (4.35-5.55); RED CELL DISTRIBUTION WIDTH 22.3 % (11.5-14.0); WHITE BLOOD COUNT 3.6 10^3/uL (4.0-10.5)
[2019-07-12] MEDS ORDERED: OXYCODONE-ACETAMINOPHEN 5-325 MG TABLET ONE (09:58)
[2019-07-12] MEDS ORDERED: DIAZEPAM 5 MG TABLET ONE (09:59)
[2019-07-12 10:19] LABS: ANION GAP 8 (5-19); BLOOD UREA NITROGEN 20 mg/dL (7-20); CALCIUM 8.8 mg/dL (8.4-10.2); CARBON DIOXIDE 28 mmol/L (22-30); CHLORIDE 101 mmol/L (98-107); GLUCOSE 85 mg/dL (75-110)
[2019-07-12] MEDS ORDERED: LIDOCAINE 0.5% INJ-PF (5 MG/ML) 50 ML SDV ONE (10:48)
[2019-07-12] MEDS ORDERED: FENTANYL CITRATE INJ/PF 100 MCG/2 ML AMPUL ONE (10:52)
[2019-07-12] MEDS ORDERED: MIDAZOLAM 2 MG/2 ML INJ ONE (10:52)
[2019-07-12] MEDS ORDERED: HEPARIN SOD (PORCINE) 5,000 UNIT/ML 1 ML VIAL ONE (10:53)
--- NOTE | 2019-07-12 12:58 | RADIOLOGY REPORT (SQ) ---
EXAM DESCRIPTION: FISTULAGRAM COMPLETED DATE/TIME: 07/12/2019 12:11 pm REASON FOR STUDY: T82.858A T82.858A STENOSIS OF OTHER VASCULAR PROSTH DEV/GRFT, INIT COMPARISON: 06/13/2018 FLUOROSCOPY TIME: 3.3 minutes 2 series of digital fluoroscopic images saved to PACS. TECHNIQUE: Intra-operative images acquired during surgical procedure to evaluate progress. NUMBER OF IMAGES: 2 series of digital fluoroscopic images LIMITATIONS: None. FINDINGS: Intra procedural imaging during left upper extremity dialysis graft evaluation by Dr. Asif yuan. Please see the operative report for further details IMPRESSION: IMAGE(S) OBTAINED DURING PROCEDURE. COMMENT: Quality ID [id number]: Final reports for procedures using fluoroscopy that document radiation exp osure indices, or exposure time and number of fluorographic images (if radiation exposure indices are not available) Please consult full operative report of the attending physician for description of the procedure. TECHNICAL DOCUMENTATION: JOB ID: [id number] [employer]- All Rights Reserved Reading location - IP/workstation name: [email or web address]
--- NOTE | 2019-07-12 14:31 | PDOC H&P ---
General Chief Complaint: The patient referred from hemodialysis because of malfunction of his AV fistula, high pressures. - Diagnosis (1) Dialysis AV fistula malfunction Is this a Current Diagnosis?: Yes (2) End stage renal disease Is this a Current Diagnosis?: Yes (3) Gangrene of finger of both hands Is this a Current Diagnosis?: Yes (4) Hypertension Is this a Current Diagnosis?: Yes (5) Type 2 diabetes mellitus Is this a Current Diagnosis?: Yes (6) Unstable angina Is this a Current Diagnosis?: Yes - Current Medications/Allergies Home Medications: Aspirin [Adult Low Dose Aspirin EC] 81 mg PO DAILY 03/12/19 Atorvastatin Calcium [Lipitor 40 mg Tablet] 40 mg PO QHS 03/12/19 Calcium Acetate [Phoslo 667 mg Capsule] 667 mg PO MEALS 03/12/19 Clopidogrel Bisulfate [Plavix 75 mg Tablet] 75 mg PO DAILY 03/12/19 Gabapentin [Neurontin 100 mg Capsule] 100 mg PO Q12 03/12/19 Hydrocodone/Acetaminophen [[place] 10-325 mg Tablet] 1 tab PO Q8HP PRN 03/12/19 Insulin Glargine,Hum.rec.anlog [Lantus Insulin 100 Unit/1 ml 10 ml] 5 units SQ DAILY 03/12/19 Midodrine HCl 2.5 mg PO TID 03/12/19 Mupirocin [Bactroban 2% Ointment 22 gm] 1 applic TOP BID 03/12/19 Allergies/Adverse Reactions: erythromycin base Allergy (Verified 03/12/19 07:04) vancomycin [Vancomycin] Adverse Reaction (Unknown, Verified 03/12/19 07:04) molina syndrome morphine Adverse Reaction (Verified 03/12/19 07:04) Past Medical History Cardiac Medical History: Reports: Atrial Fibrillation, Congestive Heart Failure, Coronary Artery Disease, Myocardial Infarction - x3, Hypertension, Peripheral Vascular Disease Pulmonary Medical History: Reports: Chronic Obstructive Pulmonary Disease (COPD), Respiratory Failure Denies: Asthma, Bronchitis, Pneumonia Neurological Medical History: Denies: Seizures Endocrine Medical History: Reports: Diabetes Mellitus Type 1, Diabetes Mellitus Type 2 Renal/ Medical History: Reports: End Stage Renal Disease GI Medical History: Reports: Gastroesophageal Reflux Disease Denies: Hepatitis, Hiatal Hernia Musculoskeltal Medical History: Denies: Arthritis Skin Medical History: Denies: Psoriasis Psychiatric Medical History: Reports: Depression Traumatic Medical History: Denies: Traumatic Brain Injury Hematology: Past Surgical History Past Surgical History: Reports: Cardiac Catheterization, Coronary Artery Bypass Graft - X3 vessel on October 26, 2017, Coronary Stent, Orthopedic Surgery - R great toe amp. L 3rd/4th toe amp. R BKA. L 3rd finger amp., Vascular Surgery, Other - Cervical laminectomy in 2012 Denies: Pacemaker Family History Family History: Reviewed & Not Pertinent, CAD, Hypertension, Malignancy Parental Family History Reviewed: No Children Family History Reviewed: No Sibling(s) Family History Reviewed.: No Social History Smoking Status: Never Smoker Frequency of Alcohol Use: Rare Hx Recreational Drug Use: No Drugs: None Hx Prescription Drug Abuse: No Physical Exam Vital Signs: Temp Pulse Resp BP Pulse Ox 98 F 63 16 120/47 L 94 07/12/19 14:11 07/12/19 14:11 07/12/19 14:11 07/12/19 14:11 07/12/19 14:11 Additional comments: Constitutional: Well-developed well-nourished Polyn[place] gentleman. No apparent acute distress. Eyes: Mucous membranes pink and moist, pupils equal and reactive to light. Conjunctiva normal. Cornea normal. ENT: Hearing grossly normal. External pinna normal to inspection. Teeth partly intact. Tongue normal to inspection. Cardiac: Heart sounds 1 and 2 normal,. Chest: Midline thoracotomy scar noted. Old. Respiratory: breath sounds are present bilaterally, normal. Normal respiratory effort. Skin: Normal to inspection. No ulcers, normal turgor. Psychiatric: Judgment, memory, insight seem normal. Mood is pleasant and appropriate. Extremities: Upper extremities show reduced range of movement. Pulses not present at the radial arteries. Capillary refill below no cyanosis noted. Muscle wasting noted. Amputated left middle digits, chronic necrosis in the tips of the remaining fingers especially on the right. A left brachiocephalic fistula in place, ectatic, aneurysmal and firm suggesting cephalad stenosis. Lower extremities show amputations. Neurovascular: No apparent tremors, gets around in a wheelchair. Sensation grossly intact. Hearing grossly normal. Vison grossly intact. Impression/Plan Plan: In this patient with end-stage renal disease who requires access to the presence of a malfunctioning fistula is is problematic. He does have chronic steal syndrome and necrosis, thus far accepted because there is no good alternatives. Angiogram, possible angioplasty is recommended. The patient is agreeable and we will proceed.
--- NOTE | 2019-07-12 14:37 | Operative Report ---
Operative Report DATE OF SURGERY: 07/12/19 PREOPERATIVE DIAGNOSIS: 1. Malfunctioning AV fistula, left brachiobasilic. 2. End-stage renal disease on hemodialysis. 3. Peripheral arterial disease. 4. Coronary artery disease. 5. Hypertension. POSTOPERATIVE DIAGNOSIS: 1. Malfunctioning AV fistula, left brachiobasilic. 2. End-stage renal disease on hemodialysis. 3. Peripheral arterial disease. 4. Coronary artery disease. 5. Hypertension. 6. 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 OPERATION: Fistula and central venous angiogram. Needle introduction into the fistula. SURGEON: ADIA MORENO PATIENT ACCOUNTING REPRESENTATIVE: None. ANESTHESIA: Moderate Sedation TISSUE REMOVED OR ALTERED: Not applicable. COMPLICATIONS: None. ESTIMATED BLOOD LOSS: 5 mL. INTRAOPERATIVE FINDINGS: Of a well-established left brachiocephalic fistula ectatic, aneurysmal, firm. Angiogram demonstrates normal fistula normal flow up to the subclavian. At the proximal subclavian there is a complete obstruction. Outflow is through the left jugular veins and through the collateral systems. Diligent active efforts at getting passes obstruction with a Glidewire use of a torque device, use of a Kumpe catheter were unsuccessful after several minutes. The obstruction seems to be firm and not amenable to ordinary measurements. The procedure was stopped at that point. The patient will need to be referred to a tertiary center for considering an attempt at sharp bypass of this area. This was explained to the patient. PROCEDURE: PROCEDURE: After verifying the procedure and having obtained informed consent, the patient's left arm was prepared with Chlorhexidine and draped out with sterile linen. Local anesthesia infiltrated. Percutaneous access into the fistula ,[ antegrade], obtained about [4 cm] from the arteriovenous anastomosis using a micro puncture needle followed by micro puncture wire and then a micro puncture catheter. A 0.035 [place] wire was inserted, and over this, a 8 [place] short introducer was placed.Angiogram demonstrated the aforementioned findings. , this was followed by a Kumpe catheter. A considerable time was spent trying to get past this obstruction using various techniques such as a torque wire and seeking an opening using it 0.3035 Glidewire. After diligent efforts this was abandoned. The instrumentation was now withdrawn over a short piece of catheter and a 5-0 Prolene suture. Dressings applied, procedure concluded. DICTATING PHYSICIAN: ADIA ROWE M.D. cc: ADIA ROWE M.D. ([id number]) >>
--- NOTE | 2019-07-12 14:39 | Discharge Summary ---
Discharge Summary (SDC) - Discharge Final Diagnosis: #1 malfunctioning AV fistula left brachiocephalic. 2. End-stage renal disease on hemodialysis. 3. Peripheral arterial disease. 4. Coronary artery disease. 5. Diabetes mellitus type 2. 6. Hypertension. 7. 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 Date of Surgery: 07/12/19 Discharge Date: 07/12/19 Condition: Poor Forms: Discharge POC-Surgical Service Treatment or Instructions: Discharge home [after recovery per ASU criteria]. Diet , [renal],as tolerated, when fully awake advance as tolerated. Activities within moderation encouraged. Follow up in my office by appointment in about [1 week]. Call for appointment. Leave wounds [covered], [keep clean and dry, until office visit in 1 week]. Meds per med rec. The blue tube loosely on the suture may be removed and hemodialysis. May shower [in 48 hrs], [try to keep operated area as dry as possible]. Referrals: FEI ZULETA MD [Primary Care Provider] - ADIA OCAMPO MD [ACTIVE STAFF] - (Follow up with Dr Ocampo in 07/18/19, call for appointment time.) Respiratory Treatments at Home: Deep Breathing/Coughing Discharge Activity: Activity As Tolerated Home Care Assistance: Provided by Family Adaptive Devices on Discharge: Wheelchair Report the Following to Your Physician Immediately: Shortness of Breath, Increase in Pain, Fever over 101 Degrees, Unusual Bleeding, Redness, Swelling, Warmth, IV Site Infection Signs
[2019-07-12 19:06] VITALS: BP 120/75
== END 2019-07-12 14:23 | disposition home or self-care (01) ==
LOC: CCL 09:01
PROVIDERS: ATTEND Surgery
DX: T82.858A Stenosis of other vascular prosthetic devices, implants and grafts, initial encounter (principal); Y83.2 Surgical operation with anastomosis, bypass or graft as the cause of abnormal reaction of the patient, or of later complication, without mention of misadventure at the time of the procedure; I13.2 Hypertensive heart and chronic kidney disease with heart failure and with stage 5 chronic kidney disease, or end stage renal disease; E11.22 Type 2 diabetes mellitus with diabetic chronic kidney disease; Z99.2 Dependence on renal dialysis; I25.10 Atherosclerotic heart disease of native coronary artery without angina pectoris; I73.9 Peripheral vascular disease, unspecified; Z79.82 Long term (current) use of aspirin; Z79.899 Other long term (current) drug therapy; Z79.4 Long term (current) use of insulin; I20.0 Unstable angina; Z88.1 Allergy status to other antibiotic agents; Z88.5 Allergy status to narcotic agent
CPT/HCPCS: 36415; 85027; 80048; 36901; 76700; C1894; C1752; C1887; Q9967; C1769; J1644 ×2; A9270 ×2; J3490; J2250; J3010

== ENCOUNTER → 2019-07-12 | Outpatient (CLI) | payer MEDICARE, MEDICAID ==
[~2019-07-12] MED LIST changes: +DIAZEPAM 5 MG TABLET PO PRN; +OXYCODONE-ACETAMINOPHEN 5-325 MG TABLET PO PRN; -ROCURONIUM BROMIDE INJ 50 MG/5 ML VIAL IV ONE
[2019-07-12 11:14] VITALS: BP 123/40
--- NOTE | 2019-07-12 16:58 | RADIOLOGY REPORT (SQ) ---
EXAM DESCRIPTION: U/S ABDOMEN COMPLETE W/O DOP COMPLETED DATE/TIME: 07/12/2019 3:42 pm REASON FOR STUDY: R10.13 EPIGASTRIC PAIN R10.13 EPIGASTRIC PAIN COMPARISON: Abdominal ultrasound 08/18/2017 CT chest 07/11/2018 TECHNIQUE: Dynamic and static grayscale images acquired of the abdomen and recorded on PACS. Additio nal selected color Doppler and spectral images recorded. Note: Study does not meet criteria for complete doppler/duplex scan LIMITATIONS: Midline bowel gas FINDINGS: PANCREAS: Not well seen LIVER: No masses. Echotexture normal. LIVER VASCULATURE: Normal directional flow of the main portal vein and hepatic veins. GALLBLADDER: Contracted, poorly visualized ULTRASOUND-DETECTED HAMILTON'S SIGN: Negative. INTRAHEPATIC DUCTS AND COMMON DUCT: No intrahepatic biliary ductal dilatation. Common bile duct at t he karen hepatis 4 mm in diameter. Distal most common duct not well seen INFERIOR VENA CAVA: Normal flow. AORTA: No aneurysm. RIGHT KIDNEY: 10 cm in length with diffuse cortical thinning and increased echogenicity. Diffuse ar terial vascular calcification. No hydronephrosis LEFT KIDNEY: 10 cm in length with diffuse cortical thinning and increased echogenicity. Diffuse art erial vascular calcification. No hydronephrosis. SPLEEN: Normal size. No solid masses. PERITONEAL AND PLEURAL SPACES: Trace upper abdominal free fluid OTHER: No other significant finding. IMPRESSION: Gallbladder is suboptimally visualized. Pancreas not visualized. Trace upper abdominal free fluid Echogenic kidneys with cortical thinning and increased echogenicity from medical renal disease. TECHNICAL DOCUMENTATION: JOB ID: [id number] [employer]- All Rights Reserved Reading location - IP/workstation name: [email or web address]
== END ==
LOC: EDBD → RAD 17:16
PROVIDERS: ATTEND Internal Medicine Nephrology
DX: R10.13 Epigastric pain (principal); N28.9 Disorder of kidney and ureter, unspecified
CPT/HCPCS: 76700

== ENCOUNTER 2019-07-28 13:00 | Inpatient (IN) | payer OTHER, MEDICARE, MEDICAID ==
--- NOTE | 2019-07-28 13:26 | ER Document Report ---
ED Medical Screen (RME) - General Stated Complaint: LEFT AND RIGHT HAND PAIN Time Seen by Provider: 07/28/19 13:20 Primary Care Provider: FEI ZULETA MD [Primary Care Provider] - Follow up as needed TRAVEL OUTSIDE OF THE [place] IN LAST 30 DAYS: No - HPI Notes: 07/28/19 13:24 Patient is a 64-year-old male with a history of peripheral vascular disease, diabetes, below-knee amputations, hypertension presents complaining of bilateral hand swelling/finger swelling and pain chronically, but more acute over the past couple weeks. Patient is noncompliant with his blood thinners. No fever or chest pain. I have treated and performed a rapid initial assessment of this patient. A comprehensive ED assessment and evaluation of the patient, analysis of test results and completion of medical decision making process will be conducted by additional ED providers. PHYSICAL EXAMINATION: GENERAL: Well-appearing, well-nourished and in no acute distress. A&Ox4. Answers questions appropriately. Hands: There is bilateral swelling and tenderness mostly to the right hand with necrotic appearing fingertips bilaterally. I cannot palpate a strong pulse at this time bilaterally. - Related Data Allergies/Adverse Reactions: erythromycin base Allergy (Verified 03/12/19 07:04) vancomycin [Vancomycin] Adverse Reaction (Unknown, Verified 03/12/19 07:04) molina syndrome morphine Adverse Reaction (Verified 03/12/19 07:04) Past Medical History - Past Medical History Cardiac Medical History: Reports: Hx Atrial Fibrillation, Hx Congestive Heart Failure, Hx Coronary Artery Disease, Hx Heart Attack - x3, Hx Hypertension, Hx Peripheral Vascular Disease Pulmonary Medical History: Reports: Hx COPD, Hx Respiratory Failure Denies: Hx Asthma, Hx Bronchitis, Hx Pneumonia Neurological Medical History: Denies: Hx Cerebrovascular Accident, Hx Seizures Endocrine Medical History: Reports: Hx Diabetes Mellitus Type 1, Hx Diabetes Mellitus Type 2 Renal/ Medical History: Reports: Hx End Stage Renal Disease, Hx Hemodialysis, Hx Renal Insufficiency. Denies: Hx Peritoneal Dialysis GI Medical History: Reports: Hx Gastroesophageal Reflux Disease. Denies: Hx Hepatitis, Hx Hiatal Hernia, Hx Ulcer Musculoskeltal Medical History: Denies Hx Arthritis Skin Medical History: Denies Hx Psoriasis Psychiatric Medical History: Reports: Hx Depression Traumatic Medical History: Denies: Hx Traumatic Brain Injury Infectious Medical History: Denies: Hx Hepatitis Past Surgical History: Reports: Hx Cardiac Catheterization, Hx Cardiac Surgery - triple bypass, Hx Coronary Artery Bypass Graft - X3 vessel on October 26, 2017, Hx Coronary Stent, Hx Orthopedic Surgery - R great toe amp. L 3rd/4th toe amp. R BKA. L 3rd finger amp., Hx Vascular Surgery, Other - Cervical laminectomy in 2012. Denies: Hx Open Heart Surgery, Hx Pacemaker - Immunizations Hx Diphtheria, Pertussis, Tetanus Vaccination: Yes Physical Exam - Vital signs Vitals: Temp Pulse Resp BP Pulse Ox 98.4 F 66 20 138/64 H 95 07/28/19 13:17 07/28/19 13:17 07/28/19 13:17 07/28/19 13:17 07/28/19 13:17 Course - Vital Signs Vital signs: Temp Pulse Resp BP Pulse Ox 98.4 F 66 20 138/64 H 95 07/28/19 13:17 07/28/19 13:17 07/28/19 13:17 07/28/19 13:17 07/28/19 13:17 Doctor's Discharge - Discharge Referrals: FEI ZULETA MD [Primary Care Provider] - Follow up as needed
[2019-07-28 14:34] LABS: HEMATOCRIT 31.7 % (37.9-51.0); HEMOGLOBIN 10.1 g/dL (13.5-17.0); INTERNATIONAL RATION (INR) 1.36; MEAN CORPUSCULAR HEMOGLOBIN 31.7 pg (27.0-33.4); MEAN CORPUSCULAR HGB CONC 31.9 g/dL (32.0-36.0); MEAN CORPUSCULAR VOLUME 99 fl (80-97); PLATELET COUNT 140 10^3/uL (150-450); PROTHROMBIN TIME 16.9 SEC (11.4-15.4); RED BLOOD COUNT 3.19 10^6/uL (4.35-5.55); RED CELL DISTRIBUTION WIDTH 22.9 % (11.5-14.0); WHITE BLOOD COUNT 3.7 10^3/uL (4.0-10.5)
[2019-07-28 14:35] LABS: PARTIAL THROMBOPLASTIN TIME 43.2 SEC (23.5-35.8)
--- NOTE | 2019-07-28 14:40 | RADIOLOGY REPORT (SQ) ---
EXAM DESCRIPTION: HAND BILATERAL 3 VIEWS COMPLETED DATE/TIME: 07/28/2019 1:54 pm REASON FOR STUDY: hand pain b/l, swelling, no palp pulses COMPARISON: None. EXAM PARAMETERS: NUMBER OF VIEWS: Three views right hand. Three views left hand TECHNIQUE: AP, lateral and oblique radiographic images acquired of the right and left hand. LIMITATIONS: None. FINDINGS: MINERALIZATION: Severe osteopenia, particular right periarticular. . Trans metacarpal am putation 3rd ray on the left. No fracture. No obvious osteomyelitis. BONES: No acute fracture or dislocation. No worrisome bone lesions. No significant osteophytes. JOINTS: No erosions. Periarticular osteopenia particularly prominent on the right. . No chondrocal cinosis. SOFT TISSUES: Extensive vascular calcification. OTHER: No other significant finding. IMPRESSION: No plain film evidence for osteomyelitis. No acute fracture. Prior amputation 3rd ray on the left. Extensive vascular calcification. TECHNICAL DOCUMENTATION: JOB ID: [id number] [employer]- All Rights Reserved Reading location - IP/workstation name: [email or web address]
[2019-07-28 14:45] LABS: ALKALINE PHOSPHATASE 106 U/L (38-126); ANION GAP 10 (5-19); ASPARTATE AMINO TRANSFERASE 17 U/L (17-59); BILIRUBIN,TOTAL 1.4 mg/dL (0.2-1.3); BLOOD UREA NITROGEN 17 mg/dL (7-20); CALCIUM 9.7 mg/dL (8.4-10.2); CARBON DIOXIDE 28 mmol/L (22-30); CHLORIDE 98 mmol/L (98-107); GLUCOSE 118 mg/dL (75-110); POTASSIUM 4.3 mmol/L (3.6-5.0); TOTAL PROTEIN 7.9 g/dL (6.3-8.2)
[2019-07-28 15:26] LABS: ABSOLUTE LYMPHOCYTES# (MANUAL) 0.8 10^3/uL (0.5-4.7); ABSOLUTE MONOCYTES # (MANUAL) 0.5 10^3/uL (0.1-1.4); ANISOCYTOSIS 3+; BASOPHILS % (MANUAL) 2 % (0-2); EOSINOPHILS % (MANUAL) 4 % (0-6); LYMPHOCYTES % (MANUAL) 22 % (13-45); MONOCYTES % (MANUAL) 14 % (3-13); PLATELET COMMENT DECREASED; PLATELET GIANT PRESENT; POIKILOCYTOSIS 1+; POLYCHROMASIA SLIGHT; SCHISTOCYTES SLIGHT; SEGMENTED NEUTROPHILS % (MAN) 58 % (42-78); TARGET CELLS SLIGHT; TOTAL CELLS COUNTED 100
[2019-07-28] MEDS ORDERED: CLINDAMYCIN 600 MG/D5W RTU 600 MG/50 ML RTUPB IV ONE (16:03)
--- NOTE | 2019-07-28 16:09 | ER Document Report ---
ED General - General Chief Complaint: Wound Infection Stated Complaint: LEFT AND RIGHT HAND PAIN Time Seen by Provider: 07/28/19 13:20 Primary Care Provider: FEI ZULETA MD [Primary Care Provider] - Follow up as needed Notes: 64-year-old diabetic male presents emergency department complaining of increasing pain to his right hand for the past month that peaked and became its worst today and is now no longer controllable with oxycodone 15 mg every 6 hours at home. It is also associated with increased redness on the hand that is now progressing proximally past his wrist. States that he does not feel like the swelling is significantly worse than usual. Denies any fevers. Denies any changes to his left hand. TRAVEL OUTSIDE OF THE [place] IN LAST 30 DAYS: No - Related Data Allergies/Adverse Reactions: erythromycin base Allergy (Verified 03/12/19 07:04) vancomycin [Vancomycin] Adverse Reaction (Unknown, Verified 03/12/19 07:04) molina syndrome morphine Adverse Reaction (Verified 03/12/19 07:04) Home Medications: Oxycodone, Clopidogrel, Gabapentin Past Medical History - General Information source: Patient, Relative - Social History Smoking Status: Former Smoker Chew tobacco use (# tins/day): No Frequency of alcohol use: None Drug Abuse: None Family History: Reviewed & Not Pertinent, CAD, Hypertension, Malignancy Patient has suicidal ideation: No Patient has homicidal ideation: No - Past Medical History Cardiac Medical History: Reports: Hx Atrial Fibrillation, Hx Congestive Heart Failure, Hx Coronary Artery Disease, Hx Heart Attack - x3, Hx Hypertension, Hx Peripheral Vascular Disease Pulmonary Medical History: Reports: Hx COPD, Hx Respiratory Failure Denies: Hx Asthma, Hx Bronchitis, Hx Pneumonia Neurological Medical History: Denies: Hx Cerebrovascular Accident, Hx Seizures Endocrine Medical History: Reports: Hx Diabetes Mellitus Type 1, Hx Diabetes Mellitus Type 2 Renal/ Medical History: Reports: Hx End Stage Renal Disease, Hx Hemodialysis, Hx Renal Insufficiency. Denies: Hx Peritoneal Dialysis GI Medical History: Reports: Hx Gastroesophageal Reflux Disease. Denies: Hx Hepatitis, Hx Hiatal Hernia, Hx Ulcer Musculoskeletal Medical History: Denies Hx Arthritis Skin Medical History: Denies Hx Psoriasis Psychiatric Medical History: Reports: Hx Depression Traumatic Medical History: Denies: Hx Traumatic Brain Injury Infectious Medical History: Denies: Hx Hepatitis Past Surgical History: Reports: Hx Cardiac Catheterization, Hx Cardiac Surgery - triple bypass, Hx Coronary Artery Bypass Graft - X3 vessel on October 26, 2017, Hx Coronary Stent, Hx Orthopedic Surgery - R great toe amp. L 3rd/4th toe amp. R BKA. L 3rd finger amp., Hx Vascular Surgery, Other - Cervical laminectomy in 2012. Denies: Hx Open Heart Surgery, Hx Pacemaker - Immunizations Hx Diphtheria, Pertussis, Tetanus Vaccination: Yes Hx Pneumococcal Vaccination: 02/05/15 Review of Systems - Review of Systems Constitutional: No symptoms reported. denies: Fever EENT: No symptoms reported Musculoskeletal: See HPI - Increased pain to the right hand. Skin: See HPI - Increased redness to the right hand. -: Yes All other systems reviewed and negative Physical Exam - Vital signs Vitals: Temp Pulse Resp BP Pulse Ox 98.4 F 66 20 138/64 H 95 07/28/19 13:17 07/28/19 13:17 07/28/19 13:17 07/28/19 13:17 07/28/19 13:17 Interpretation: Normal - Notes Notes: GENERAL: Alert, interacts well. No acute distress. HEAD: Normocephalic, atraumatic EYES: Pupils equal, round and reactive to light, extraocular movements intact. ENT: Oral mucosa moist, tongue midline. NECK: Full range of motion, supple, trachea midline. LUNGS: Clear to auscultation bilaterally, no wheezes, rales or rhonchi, no respiratory distress. HEART: Regular rate and rhythm, no murmurs, gallops, rubs. ABDOMEN: Soft, nontender, nondistended, bowel sounds present in all 4 quadrants. EXTREMITIES: Moves all 4 extremities spontaneously, right hand is grossly swollen with swelling progressing proximally past the wrist by approximately 3 cm, erythema also progresses past the wrist proximally by about 3 cm, the area of erythema is hot to the touch compared to the left hand. He does have si gnificant necrosis of the tips of the second third and fourth digits almost down to the bone, small amount of necrosis started on the tip of the fifth finger on the right hand, consistent with dry gangrene, no gangrene noted to digit 1. Hand is tender to palpation across the palm and dorsal aspect of the right hand, left hand has no similar swelling or erythema, there is similar dry gangrene to the of the digits of the left hand, no erythema and no swelling. Radial pulses diminished and very difficult to palpate bilaterally, they are present with Doppler. Full range of motion noted to the right hand though there is pain with flexion and extension of the digits. AV fistula in the left upper extremity with palpable thrill. NEUROLOGICAL: Alert and oriented x3, normal speech. PSYCH: Normal mood, normal affect. Course - Re-evaluation Re-evalutation: 07/28/19 16:19 CBC shows chronic pancytopenia with a white blood cell count of 3.7, hemoglobin at 10.1, platelets at 140, CMP also shows chronic findings with chronically low sodium at 136.2, chronically elevated creatinine at 5.61, BUN is quite normal at 17, patient has not missed any dialysis, glucose relatively good at 118 which is nonfasting, lactic acid is slightly elevated at 2.7, hand x-ray does not show any subcu emphysema or evidence of osteomyelitis. Arterial Doppler shows poor blood for flow bilaterally, patient does have blood flow through the radial arteries but is quite decreased equally on both sides. Looking at the erythema that is progressing proximally past the wrist that the patient has never had before in addition to the increasing swelling I am concerned for cellulitis, I have called Dr. Zuleta and I am awaiting a phone call back to discuss this patient with him for admission for IV antibiotics. He currently have started clindamycin. 07/28/19 17:07 Dr. Zuleta agrees to accept the patient to his service. I did confirm with nursing mold making plastics sheets supervisor that there is a dialysis bed available. Per Dr. Zuleta's request I did consult Dr. Chaparro who kindly saw the patient in the emergency department. Recommends moving IV from right arm to the EJ if possible. This will be done. - Vital Signs Vital signs: Temp Pulse Resp BP Pulse Ox 98.4 F 66 14 138/64 H 99 07/28/19 13:17 07/28/19 13:17 07/28/19 17:00 07/28/19 13:17 07/28/19 17:00 - Laboratory Result Diagrams: 07/28/19 14:16 07/28/19 14:16 Laboratory results interpreted by me: 07/28/19 07/28/19 07/28/19 14:16 14:16 14:16 WBC 3.7 L RBC 3.19 L Hgb 10.1 L Hct 31.7 L MCV 99 H MCHC 31.9 L RDW 22.9 H Plt Count 140 L Monocytes % (Manual) 14 H PT 16.9 H APTT 43.2 H Sodium 136.2 L Creatinine 5.61 H Est GFR ( Amer) 12 L Est GFR (MDRD) Non-Af 10 L Glucose 118 H Lactic Acid Total Bilirubin 1.4 H Direct Bilirubin 1.0 H Albumin 3.0 L 07/28/19 14:16 WBC RBC Hgb Hct MCV MCHC RDW Plt Count Monocytes % (Manual) PT APTT Sodium Creatinine Est GFR ( Amer) Est GFR (MDRD) Non-Af Glucose Lactic Acid 2.7 H Total Bilirubin Direct Bilirubin Albumin Discharge - Discharge Clinical Impression: PVD (peripheral vascular disease), Cellulitis of right hand, Cellulitis of right wrist Type 2 diabetes mellitus Qualifiers: Diabetes mellitus penitentiary insulin use: with termite inspector use Diabetes mellitus complication status: with circulatory complication Diabetes mellitus complication detail: with peripheral angiopathy with gangrene Qualified Code(s): E11.52 - Type 2 diabetes mellitus with diabetic peripheral angiopathy with gangrene; Z79.4 - FPC (current) use of insulin Condition: Fair Disposition: ADMITTED INPATIENT Admitting Provider: [facility] Unit Admitted: IMCU Referrals: FEI ZULETA MD [Primary Care Provider] - Follow up as needed
[2019-07-28] MEDS ORDERED: IPRATROPIUM/ALBUTEROL 0.5-2.5 MG/3 ML AMPUL NEB PRN (17:51)
--- NOTE | 2019-07-28 17:55 | PDOC CONSULTATION ---
Consultation Consult Date: 07/28/19 Attending physician:: FEI ZULETA Provider Consulted: CRESENCIO STORM Consult reason:: Cellulitis right arm History of Present Illness Admission Date/PCP: 07/28/19 17:13 FEI ZULETA MD History of Present Illness: CHAPITO LESLIE is a 64 year old male With history of multiple chronic medical problems who presents emergency department complaining of intractable pain right upper extremity above and behind his chronic pain. 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 He was evaluated emergency department found to have cellulitis of the wrist, and was admitted for intravenous antibiotics. Surgical evaluation was requested. Past Medical History Cardiac Medical History: Reports: Atrial Fibrillation, Congestive Heart Failure, Coronary Artery Disease, Myocardial Infarction - x3, Hypertension, Peripheral Vascular Disease Pulmonary Medical History: Reports: Chronic Obstructive Pulmonary Disease (COPD), Respiratory Failure Denies: Asthma, Bronchitis, Pneumonia Neurological Medical History: Denies: Seizures Endocrine Medical History: Reports: Diabetes Mellitus Type 1, Diabetes Mellitus Type 2 Renal/ Medical History: Reports: End Stage Renal Disease GI Medical History: Reports: Gastroesophageal Reflux Disease Denies: Hepatitis, Hiatal Hernia Musculoskeltal Medical History: Denies: Arthritis Skin Medical History: Denies: Psoriasis Psychiatric Medical History: Reports: Depression Traumatic Medical History: Denies: Traumatic Brain Injury Hematology: Past Surgical History Past Surgical History: Amputation left middle finger; cervical spine surgery Past Surgical History: Reports: Cardiac Catheterization, Coronary Artery Bypass Graft - X3 vessel on October 26, 2017, Coronary Stent, Orthopedic Surgery - R great toe amp. L 3rd/4th toe amp. R BKA. L 3rd finger amp., Vascular Surgery, Other - Cervical laminectomy in 2012 Denies: Pacemaker Social History Information Source: Patient Smoking Status: Former Smoker Electronic Cigarette use?: No Frequency of Alcohol Use: Rare Hx Recreational Drug Use: No Drugs: None Hx Prescription Drug Abuse: No Family History Family History: None, Reviewed & Not Pertinent, CAD, Hypertension, Malignancy Parental Family History Reviewed: No Children Family History Reviewed: No Sibling(s) Family History Reviewed.: No Medication/Allergy Home Medications: Aspirin [Adult Low Dose Aspirin EC] 81 mg PO DAILY 03/12/19 Atorvastatin Calcium [Lipitor 40 mg Tablet] 40 mg PO QHS 03/12/19 Calcium Acetate [Phoslo 667 mg Capsule] 667 mg PO MEALS 03/12/19 Clopidogrel Bisulfate [Plavix 75 mg Tablet] 75 mg PO DAILY 03/12/19 Gabapentin [Neurontin 100 mg Capsule] 100 mg PO Q12 03/12/19 Hydrocodone/Acetaminophen [[place] 10-325 mg Tablet] 1 tab PO Q8HP PRN 03/12/19 Insulin Glargine,Hum.rec.anlog [Lantus Insulin 100 Unit/1 ml 10 ml] 5 units SQ DAILY 03/12/19 Midodrine HCl 2.5 mg PO TID 03/12/19 Mupirocin [Bactroban 2% Ointment 22 gm] 1 applic TOP BID 03/12/19 Docusate Sodium [Colace 100 mg Capsule] 1 tab PO PRN PRN 07/12/19 Folic Acid/Vit Bcomp,C/Cu/Zinc [Folbee Plus Cz Tablet] 1 each PO DAILY 07/12/19 Polyethylene Glycol 3350 [Glycolax] 119 gm PO DAILY 07/12/19 Allergies/Adverse Reactions: erythromycin base Allergy (Verified 03/12/19 07:04) vancomycin [Vancomycin] Adverse Reaction (Unknown, Verified 03/12/19 07:04) molina syndrome morphine Adverse Reaction (Verified 03/12/19 07:04) Review of Systems Constitutional: PRESENT: weakness, other - Patient essentially bedridden Eyes: PRESENT: other - Poor eyesight Ears: ABSENT: hearing changes Gastrointestinal: PRESENT: other - No complaints Genitourinary: ABSENT: dysuria, hematuria Musculoskeletal: PRESENT: other - Patient bedridden Integumentary: PRESENT: other - Dry skin Neurological: PRESENT: other - Chronic neuropathy Physical Exam Vital Signs: Temp Pulse Resp BP Pulse Ox 98.4 F 66 14 138/64 H 99 07/28/19 13:17 07/28/19 13:17 07/28/19 17:00 07/28/19 13:17 07/28/19 17:00 Intake & Output 07/27/19 07/28/19 07/29/19 06:59 06:59 06:59 Intake Total 50 Balance 50 Weight 78.1 kg General appearance: PRESENT: other - Disheveled male, [place] descent, no acute distress Head exam: PRESENT: normocephalic Eye exam: PRESENT: EOMI Mouth exam: PRESENT: dry mucosa Neck exam: PRESENT: full ROM, other - Visible external jugular veins Respiratory exam: PRESENT: rhonchi Cardiovascular exam: PRESENT: RRR, other - Well-healed median sternotomy scar Pulses: PRESENT: other - Unable to palpate pulses in the upper extremities; barely palpable groin pulses GI/Abdominal exam: PRESENT: other - Soft, nontender scars consistent with previous surgery Rectal exam: PRESENT: deferred Extremities exam: PRESENT: other - Upper extremities: Palpable left proximal AV fistula with thrill; unable to palpate brachial or radial pulse Right upper extremity with Hep-Lock just distal to antecubital fossa. Clotted AV fistula right upper arm; unable to palpate pulses at the elbow or wrist; moderate cellulitis dorsal aspect of the wrist. Chronic ischemic, dry gangrenous changes to all 5 fingertips. No active drainage. Skin is extremely dry. Musculoskeletal exam: PRESENT: other - Bed ridden; moves upper and lower extremities proximally without difficulty Neurological exam: PRESENT: oriented to person, oriented to time, oriented to situation Focused psych exam: PRESENT: other - Appropriate Skin exam: PRESENT: dry Results Laboratory Results: 07/28/19 14:16 07/28/19 14:16 07/28/19 07/28/19 07/28/19 14:16 14:16 14:16 WBC 3.7 L RBC 3.19 L Hgb 10.1 L Hct 31.7 L MCV 99 H MCH 31.7 MCHC 31.9 L RDW 22.9 H Plt Count 140 L Seg Neutrophils % Not Reportable Sodium 136.2 L Potassium 4.3 Chloride 98 Carbon Dioxide 28 Anion Gap 10 BUN 17 Creatinine 5.61 H Est GFR ( Amer) 12 L Glucose 118 H Lactic Acid 2.7 H Calcium 9.7 Total Bilirubin 1.4 H AST 17 Alkaline Phosphatase 106 Total Protein 7.9 Albumin 3.0 L 07/28/19 16:00 WBC RBC Hgb Hct MCV MCH MCHC RDW Plt Count Seg Neutrophils % Sodium Potassium Chloride Carbon Dioxide Anion Gap BUN Creatinine Est GFR ( Amer) Glucose Lactic Acid 1.6 Calcium Total Bilirubin AST Alkaline Phosphatase Total Protein Albumin Impressions: Hand X-Ray 07/28/19 13:24 IMPRESSION: No plain film evidence for osteomyelitis. No acute fracture. Prior amputation 3rd ray on the left. Extensive vascular calcification. 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 Agree with intravenous antibiotics, arm elevation; suggested removing IV from right upper extremity and transferring to right external jugular vein. 2. No indication for surgical intervention at this time. 3. If patient's condition deteriorates, serious consideration to right upper extremity amputation may need to take place. This was not discussed at bedside this afternoon. 4. We will follow patient in consultation. 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 (6) Anemia in chronic kidney disease (CKD) Qualifiers: Is this a current diagnosis for this admission?: Yes (7) Atrial fibrillation Qualifiers: Is this a current diagnosis for this admission?: Yes (8) CAD (coronary artery disease) Qualifiers: Is this a current diagnosis for this admission?: Yes - Time Time Spent: 30 to 50 Minutes Smoking Cessation Education: 3 to 10 minutes Medications reviewed and adjusted accordingly: Yes Anticipated discharge: Home - Inpatient Certification Based on my medical assessment, after consideration of the patient's comorbidities, presenting symptoms, or acuity I expect that the services needed warrant INPATIENT care.: Yes I certify that my determination is in accordance with my understanding of Medicare's requirements for reasonable and necessary INPATIENT services [42 CFR 412.3e].: Yes Medical Necessity: Need For IV Fluids, Need for Pain Control, Need for IV Antibiotics
[2019-07-28] MEDS ORDERED: GLUCAGON,HUMAN RECOMB 1 MG INJ IM PRN (17:56)
[2019-07-28] MEDS ORDERED: DEXTROSE 40% GEL 15 GM TUBE PO PRN ×2 (17:56)
[2019-07-28] MEDS ORDERED: DEXTROSE 50%-WATER 25 GM/50 ML DISP.SYRIN IV PRN ×2 (17:56)
--- NOTE | 2019-07-28 18:12 | PDOC H&P ---
History of Present Illness Admission Date/PCP: 07/28/19 17:13 FEI ZULETA MD Patient complains of: Right hand swelling History of Present Illness: CHAPITO LESLIE is a 64 year old male This is a 64-year-old male with a significant history of the end-stage renal disease on hemodialysis history of the type 2 diabetes with multiple complications including the chronic kidney disease peripheral vascular disease history of the significant coronary artery disease status post bypass and multiple other comorbidities amputations in the both lower extremity recently and the left one at [facility] also see a vascular surgery at [facility] for ongoing finger problems with a dry gangrene's and also see a wound care clinic here. Patients came to the emergency department with a complaint of right hand swelling and the pain and initial work-up suggest the most likely right hand cellulitis and suggest the repeat in the hospital Patient seen by the general surgery and suggest continues to IV antibiotic patient have a significant record including the significant gangrene and a peripheral vascular disease which is ongoing problems nothing else needs to be do at this point Patient also with significant coronary artery disease status post cardiac arrest bypass surgery in the past currently see Dr. WATKINS locally here in [place] cardiology Patient also see Dr. Merino with end-stage renal disease Patient seen and examined in the emergency department denied any chest pain no short of breath no abdominal pain no nausea no vomiting no fever Past Medical History Cardiac Medical History: Reports: Atrial Fibrillation, Congestive Heart Failure, Coronary Artery Disease, Myocardial Infarction - x3, Hypertension, Peripheral Vascular Disease Pulmonary Medical History: Reports: Chronic Obstructive Pulmonary Disease (COPD), Respiratory Failure Denies: Asthma, Bronchitis, Pneumonia Neurological Medical History: Denies: Seizures Endocrine Medical History: Reports: Diabetes Mellitus Type 2 Renal/ Medical History: Reports: End Stage Renal Disease GI Medical History: Reports: Gastroesophageal Reflux Disease Denies: Hepatitis, Hiatal Hernia Musculoskeltal Medical History: Denies: Arthritis Skin Medical History: Denies: Psoriasis Psychiatric Medical History: Reports: Depression Traumatic Medical History: Denies: Traumatic Brain Injury Hematology: Past Surgical History Past Surgical History: Reports: Cardiac Catheterization, Coronary Artery Bypass Graft - X3 vessel on October 26, 2017, Coronary Stent, Orthopedic Surgery - R great toe amp. L 3rd/4th toe amp. R BKA. L 3rd finger amp., Vascular Surgery, Other - Cervical laminectomy in 2012 Denies: Pacemaker Social History Information Source: Patient Smoking Status: Former Smoker Electronic Cigarette use?: No Frequency of Alcohol Use: Rare Hx Recreational Drug Use: No Drugs: None Hx Prescription Drug Abuse: No Family History Family History: None, Reviewed & Not Pertinent, CAD, Hypertension, Malignancy Parental Family History Reviewed: Yes Children Family History Reviewed: Yes Sibling(s) Family History Reviewed.: Yes Medication/Allergy Home Medications: Aspirin [Adult Low Dose Aspirin EC] 81 mg PO DAILY 03/12/19 Atorvastatin Calcium [Lipitor 40 mg Tablet] 40 mg PO QHS 03/12/19 Calcium Acetate [Phoslo 667 mg Capsule] 667 mg PO MEALS 03/12/19 Clopidogrel Bisulfate [Plavix 75 mg Tablet] 75 mg PO DAILY 03/12/19 Gabapentin [Neurontin 100 mg Capsule] 100 mg PO Q12 03/12/19 Hydrocodone/Acetaminophen [[place] 10-325 mg Tablet] 1 tab PO Q8HP PRN 03/12/19 Insulin Glargine,Hum.rec.anlog [Lantus Insulin 100 Unit/1 ml 10 ml] 5 units SQ DAILY 03/12/19 Midodrine HCl 2.5 mg PO TID 03/12/19 Mupirocin [Bactroban 2% Ointment 22 gm] 1 applic TOP BID 03/12/19 Docusate Sodium [Colace 100 mg Capsule] 1 tab PO PRN PRN 07/12/19 Folic Acid/Vit Bcomp,C/Cu/Zinc [Folbee Plus Cz Tablet] 1 each PO DAILY 07/12/19 Polyethylene Glycol 3350 [Glycolax] 119 gm PO DAILY 07/12/19 Allergies/Adverse Reactions: erythromycin base Allergy (Verified 03/12/19 07:04) vancomycin [Vancomycin] Adverse Reaction (Unknown, Verified 03/12/19 07:04) molina syndrome morphine Adverse Reaction (Verified 03/12/19 07:04) Review of Systems Constitutional: PRESENT: weakness. ABSENT: chills, fever(s), headache(s), weight gain, weight loss Eyes: ABSENT: visual disturbances Ears: ABSENT: hearing changes Cardiovascular: ABSENT: chest pain, dyspnea on exertion, edema, orthropnea, p alpitations Respiratory: ABSENT: cough, hemoptysis Gastrointestinal: ABSENT: abdominal pain, constipation, diarrhea, hematemesis, hematochezia, nausea, vomiting Genitourinary: ABSENT: dysuria, hematuria Musculoskeletal: ABSENT: joint swelling Integumentary: ABSENT: rash, wounds Neurological: ABSENT: abnormal gait, abnormal speech, confusion, dizziness, focal weakness, syncope Psychiatric: ABSENT: anxiety, depression, homidical ideation, suicidal ideation Endocrine: ABSENT: cold intolerance, heat intolerance, menstrual abnormalities, polydipsia, polyuria Hematologic/Lymphatic: ABSENT: easy bleeding, easy bruising, lymphadenopathy Physical Exam Vital Signs: Temp Pulse Resp BP Pulse Ox 98.4 F 66 16 139/73 H 98 07/28/19 13:17 07/28/19 13:17 07/28/19 17:45 07/28/19 17:45 07/28/19 17:45 Intake & Output 07/27/19 07/28/19 07/29/19 06:59 06:59 06:59 Intake Total 50 Balance 50 Weight 78.1 kg General appearance: PRESENT: no acute distress Head exam: PRESENT: atraumatic, normocephalic Eye exam: PRESENT: conjunctiva pink, EOMI, PERRLA. ABSENT: scleral icterus Ear exam: PRESENT: normal external ear exam Mouth exam: PRESENT: moist, tongue midline Neck exam: PRESENT: full ROM. ABSENT: carotid bruit, JVD, lymphadenopathy, thyromegaly Respiratory exam: PRESENT: clear to auscultation john Cardiovascular exam: PRESENT: RRR. ABSENT: diastolic murmur, rubs, systolic murmur Additional comments: Poor peripheral pulses in upper extremities with a capillary refill is very poor as usual Vascular exam: PRESENT: normal capillary refill GI/Abdominal exam: PRESENT: normal bowel sounds, soft. ABSENT: distended, guarding, mass, organolmegaly, rebound, tenderness Rectal exam: PRESENT: deferred Extremities exam: PRESENT: left BKA, right BKA Neurological exam: PRESENT: alert, awake, oriented to person, oriented to place, oriented to time, oriented to situation. ABSENT: motor sensory deficit Psychiatric exam: PRESENT: appropriate affect, normal mood. ABSENT: homicidal ideation, suicidal ideation Skin exam: PRESENT: dry, intact, warm. ABSENT: cyanosis, rash Results Laboratory Results: 07/28/19 14:16 07/28/19 14:16 07/28/19 07/28/19 07/28/19 14:16 14:16 14:16 WBC 3.7 L RBC 3.19 L Hgb 10.1 L Hct 31.7 L MCV 99 H MCH 31.7 MCHC 31.9 L RDW 22.9 H Plt Count 140 L Seg Neutrophils % Not Reportable Sodium 136.2 L Potassium 4.3 Chloride 98 Carbon Dioxide 28 Anion Gap 10 BUN 17 Creatinine 5.61 H Est GFR ( Amer) 12 L Glucose 118 H Lactic Acid 2.7 H Calcium 9.7 Total Bilirubin 1.4 H AST 17 Alkaline Phosphatase 106 Total Protein 7.9 Albumin 3.0 L 07/28/19 16:00 WBC RBC Hgb Hct MCV MCH MCHC RDW Plt Count Seg Neutrophils % Sodium Potassium Chloride Carbon Dioxide Anion Gap BUN Creatinine Est GFR ( Amer) Glucose Lactic Acid 1.6 Calcium Total Bilirubin AST Alkaline Phosphatase Total Protein Albumin Impressions: Hand X-Ray 07/28/19 13:24 IMPRESSION: No plain film evidence for osteomyelitis. No acute fracture. Prior amputation 3rd ray on the left. Extensive vascular calcification. 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 insulin use: with assisted use Diabetes bubba litus complication status: with circulatory complication Diabetes mellitus complication detail: with peripheral angiopathy with gangrene Qualified Code(s): E11.52 - Type 2 diabetes mellitus with diabetic peripheral angiopathy with gangrene; Z79.4 - snf (current) use of insulin Is this a current diagnosis for this admission?: Yes Plan: Sliding scale (6) Anemia in chronic kidney disease (CKD) Qualifiers: Chronic kidney disease stage: on chronic dialysis Is this a current diagnosis for this admission?: Yes (7) Atrial fibrillation Qualifiers: Atrial fibrillation type: unspecified Qualified Code(s): I48.91 - Unspecified atrial fibrillation Is this a current diagnosis for this admission?: Yes (8) CAD (coronary artery disease) Qualifiers: Coronary Disease-Associated Artery/Lesion type: bypass graft Associated angina: without angina Is this a current diagnosis for this admission?: Yes Plan: Get the EKG consult the cardiology he denied any symptoms with a significant coronary disease if the patients need any surgery will evaluate the patient's by cardiology (9) Chronic pain syndrome Is this a current diagnosis for this admission?: Yes Plan: She is currently see a pain management Dr. Smith (10) Congestive heart failure Qualifiers: Heart failure type: combined systolic and diastolic Heart failure chronicity: chronic Qualified Code(s): I50.42 - Chronic combined systolic (congestive) and diastolic (congestive) heart failure Is this a current diagnosis for this admission?: Yes (11) Coronary artery disease Qualifiers: Coronary Disease-Associated Artery/Lesion type: unspecified vessel or lesion type Is this a current diagnosis for this admission?: Yes (12) End stage renal disease Is this a current diagnosis for this admission?: Yes Plan: on hemodialysis we will consult the Dr. Merino schedule on Tuesday for routine d ialysis currently all electrolytes stable (13) Hypertension Qualifiers: Hypertension type: essential hypertension Qualified Code(s): I10 - Essential (primary) hypertension Is this a current diagnosis for this admission?: Yes - Time Time Spent: 50 to 70 Minutes Medications reviewed and adjusted accordingly: Yes Anticipated discharge: Home Within: Other - Inpatient Certification Based on my medical assessment, after consideration of the patient's comorbid ities, presenting symptoms, or acuity I expect that the services needed warrant INPATIENT care.: Yes I certify that my determination is in accordance with my understanding of Medicare's requirements for reasonable and necessary INPATIENT services [42 CFR 412.3e].: Yes Medical Necessity: Significant Comorbidiites Make Outpatient Treatment Too Risky, Need for Pain Control, Need for IV Antibiotics Post Hospital Care: D/C Tenter Documentation - Plan Summary Plan Summary: Admit the patient in the IMCU Discussed with the patient and her regarding the patient's current conditions Again patient with significant comorbidity very poor prognosis so many time discussed with the patient and the in the past regarding the patient's poor prognosis patient and her understand very well
[2019-07-28] MEDS: OXYCODONE-ACETAMINOPHEN 5-325 MG TABLET PO PRN (20:55)
[2019-07-28] MEDS: DOCUSATE SODIUM 100 MG CAPSULE PO SCH (21:01)
[2019-07-28] MEDS: ACETAMINOPHEN 325 MG TABLET PO PRN (21:41)
[2019-07-28] MEDS: HEPARIN SOD (PORCINE) 5,000 UNIT/ML 1 ML VIAL SUBCUT SCH (22:15)
[2019-07-28] MEDS: INSULIN LISPRO 100 UNIT/ML 3 ML VIAL SUBCUT SCH (23:18)
[2019-07-29] MEDS: CLINDAMYCIN 600 MG/D5W RTU 600 MG/50 ML RTUPB IV SCH ×3 (02:31→17:34)
[2019-07-29] MEDS: OXYCODONE-ACETAMINOPHEN 5-325 MG TABLET PO PRN ×2 (02:32→19:16)
[2019-07-29] MEDS: ACETAMINOPHEN 325 MG TABLET PO PRN ×2 (02:47→19:16)
[2019-07-29] MEDS: HEPARIN SOD (PORCINE) 5,000 UNIT/ML 1 ML VIAL SUBCUT SCH ×3 (06:29→23:09)
[2019-07-29 06:56] LABS: ANION GAP 8 (5-19); BLOOD UREA NITROGEN 21 mg/dL (7-20); CALCIUM 9.5 mg/dL (8.4-10.2); CARBON DIOXIDE 27 mmol/L (22-30); CHLORIDE 99 mmol/L (98-107); GLUCOSE 112 mg/dL (75-110); HEMATOCRIT 31.1 % (37.9-51.0); MEAN CORPUSCULAR HEMOGLOBIN 31.7 pg (27.0-33.4); MEAN CORPUSCULAR HGB CONC 32.1 g/dL (32.0-36.0); MEAN CORPUSCULAR VOLUME 99 fl (80-97); PLATELET COUNT 138 10^3/uL (150-450); POTASSIUM 4.5 mmol/L (3.6-5.0); RED BLOOD COUNT 3.15 10^6/uL (4.35-5.55); RED CELL DISTRIBUTION WIDTH 23.1 % (11.5-14.0); WHITE BLOOD COUNT 3.2 10^3/uL (4.0-10.5)
[2019-07-29 07:30] LABS: ABSOLUTE LYMPHOCYTES# (MANUAL) 0.9 10^3/uL (0.5-4.7); ABSOLUTE MONOCYTES # (MANUAL) 0.4 10^3/uL (0.1-1.4); ANISOCYTOSIS 1+; BAND NEUTROPHILS % (MANUAL) 2 % (3-5); BASOPHILS % (MANUAL) 0 % (0-2); EOSINOPHILS % (MANUAL) 16 % (0-6); LYMPHOCYTES % (MANUAL) 27 % (13-45); MONOCYTES % (MANUAL) 13 % (3-13); SEGMENTED NEUTROPHILS % (MAN) 42 % (42-78); TOTAL CELLS COUNTED 100
[2019-07-29 07:31] LABS: PLATELET COMMENT DECREASED
--- NOTE | 2019-07-29 09:49 | PDOC PROGRESS REPORT ---
Subjective Progress Note for:: 07/29/19 Subjective:: Patient is currently doing better Patient's right hand swelling and the redness is also improving No chest pain no short of breath Reason For Visit: RT UPPER CELLULITIS Physical Exam Vital Signs: Temp Pulse Resp BP Pulse Ox 98.1 F 56 L 16 117/82 96 07/29/19 03:01 07/29/19 07:00 07/29/19 03:01 07/29/19 03:01 07/29/19 03:01 Intake & Output 07/28/19 07/29/19 07/30/19 06:59 06:59 06:59 Intake Total 582 Output Total 0 Balance 582 Weight 76.7 kg General appearance: PRESENT: no acute distress, well-developed, well-nourished Head exam: PRESENT: atraumatic, normocephalic Eye exam: PRESENT: conjunctiva pink, EOMI, PERRLA. ABSENT: scleral icterus Ear exam: PRESENT: normal external ear exam Mouth exam: PRESENT: moist, tongue midline Neck exam: PRESENT: full ROM. ABSENT: carotid bruit, JVD, lymphadenopathy, thyromegaly Respiratory exam: PRESENT: clear to auscultation john Cardiovascular exam: PRESENT: RRR. ABSENT: diastolic murmur, rubs, systolic murmur Vascular exam: PRESENT: normal capillary refill GI/Abdominal exam: PRESENT: normal bowel sounds, soft. ABSENT: distended, guarding, mass, organolmegaly, rebound, tenderness Rectal exam: PRESENT: deferred Additional comments: Right hand swelling and the redness is markedly improved other exam is same Neurological exam: PRESENT: alert, awake, oriented to person, oriented to place. ABSENT: motor sensory deficit Psychiatric exam: PRESENT: appropriate affect, normal mood. ABSENT: homicidal ideation, suicidal ideation Skin exam: PRESENT: dry, intact, warm. ABSENT: cyanosis, rash Results Laboratory Results: 07/29/19 06:07 07/29/19 06:07 07/28/19 07/28/19 07/28/19 14:16 14:16 14:16 WBC 3.7 L RBC 3.19 L Hgb 10.1 L Hct 31.7 L MCV 99 H MCH 31.7 MCHC 31.9 L RDW 22.9 H Plt Count 140 L Seg Neutrophils % Not Reportable Sodium 136.2 L Potassium 4.3 Chloride 98 Carbon Dioxide 28 Anion Gap 10 BUN 17 Creatinine 5.61 H Est GFR ( Amer) 12 L Glucose 118 H Lactic Acid 2.7 H Calcium 9.7 Total Bilirubin 1.4 H AST 17 Alkaline Phosphatase 106 Total Protein 7.9 Albumin 3.0 L 07/28/19 07/28/19 07/29/19 16:00 20:00 06:07 WBC 3.2 L RBC 3.15 L Hgb 10.0 L Hct 31.1 L MCV 99 H MCH 31.7 MCHC 32.1 RDW 23.1 H Plt Count 138 L Seg Neutrophils % Not Reportable Sodium Potassium Chloride Carbon Dioxide Anion Gap BUN Creatinine Est GFR ( Amer) Glucose Lactic Acid 1.6 2.1 Calcium Total Bilirubin AST Alkaline Phosphatase Total Protein Albumin 07/29/19 06:07 WBC RBC Hgb Hct MCV MCH MCHC RDW Plt Count Seg Neutrophils % Sodium 134.2 L Potassium 4.5 Chloride 99 Carbon Dioxide 27 Anion Gap 8 BUN 21 H Creatinine 6.13 H Est GFR ( Amer) 11 L Glucose 112 H Lactic Acid Calcium 9.5 Total Bilirubin AST Alkaline Phosphatase Total Protein Albumin Impressions: Hand X-Ray 07/28/19 13:24 IMPRESSION: No plain film evidence for osteomyelitis. No acute fracture. Prior amputation 3rd ray on the left. Extensive vascular calcification. 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 Diabetes mellitus complication status: with circulatory complication Diabetes mellitus complication detail: with peripheral angiopathy with gangrene Qualified Code(s): E11.52 - Type 2 diabetes mellitus with diabetic peripheral angiopathy with gangrene; Z79.4 - roasterman (current) use of insulin Is this a current diagnosis for this admission?: Yes (6) Anemia in chronic kidney disease (CKD) Qualifiers: Chronic kidney disease stage: on chronic dialysis Is this a current diagnosis for this admission?: Yes (7) Atrial fibrillation Qualifiers: Atrial fibrillation type: unspecified Qualified Code(s): I48.91 - Unspecified atrial fibrillation Is this a current diagnosis for this admission?: Yes (8) CAD (coronary artery disease) Qualifiers: Coronary Disease-Associated Artery/Lesion type: bypass graft Associated angina: without angina Is this a current diagnosis for this admission?: Yes (9) Chronic pain syndrome Is this a current diagnosis for this admission?: Yes (10) Congestive heart failure Qualifiers: Heart failure type: combined systolic and diastolic Heart failure chronicity: chronic Qualified Code(s): I50.42 - Chronic combined systolic (congestive) and diastolic (congestive) heart failure Is this a current diagnosis for this admission?: Yes (11) Coronary artery disease Qualifiers: Coronary Disease-Associated Artery/Lesion type: unspecified vessel or lesion type Is this a current diagnosis for this admission?: Yes (12) End stage renal disease Is this a current diagnosis for this admission?: Yes (13) Hypertension Qualifiers: Hypertension type: essential hypertension Qualified Code(s): I10 - Essential (primary) hypertension Is this a current diagnosis for this admission?: Yes - Time Time Spent with patient: 15-24 minutes Level of Care: IMCU Medications reviewed and adjusted accordingly: Yes Anticipated discharge: Other Within: Other - Plan Summary Plan Summary: Continues the IV antibiotic Discussed with the patient and the
[2019-07-29] MEDS: INSULIN LISPRO 100 UNIT/ML 3 ML VIAL SUBCUT SCH ×4 (10:10→23:09)
[2019-07-29] MEDS: DOCUSATE SODIUM 100 MG CAPSULE PO SCH ×2 (10:14→17:34)
--- NOTE | 2019-07-29 10:57 | PDOC PROGRESS REPORT ---
Subjective Progress Note for:: 07/29/19 Reason For Visit: RT UPPER CELLULITIS Patient says his right arm feels better. Physical Exam Vital Signs: Temp Pulse Resp BP Pulse Ox 98.2 F 56 L 16 103/32 L 97 07/29/19 07:50 07/29/19 09:00 07/29/19 09:00 07/29/19 07:50 07/29/19 09:00 Intake & Output 07/28/19 07/29/19 07/30/19 06:59 06:59 06:59 Intake Total 582 Output Total 0 Balance 582 Weight 76.7 kg General appearance: PRESENT: other - Chronically ill bedridden male, significant other at bedside. Musculoskeletal exam: PRESENT: other - Right upper extremity examined. Erythema and edema have subsided but not resolved. Hep-Lock still in right upper extrem ity. Results Laboratory Results: 07/29/19 06:07 07/29/19 06:07 07/28/19 07/28/19 07/28/19 14:16 14:16 14:16 WBC 3.7 L RBC 3.19 L Hgb 10.1 L Hct 31.7 L MCV 99 H MCH 31.7 MCHC 31.9 L RDW 22.9 H Plt Count 140 L Seg Neutrophils % Not Reportable Sodium 136.2 L Potassium 4.3 Chloride 98 Carbon Dioxide 28 Anion Gap 10 BUN 17 Creatinine 5.61 H Est GFR ( Amer) 12 L Glucose 118 H Lactic Acid 2.7 H Calcium 9.7 Total Bilirubin 1.4 H AST 17 Alkaline Phosphatase 106 Total Protein 7.9 Albumin 3.0 L 07/28/19 07/28/19 07/29/19 16:00 20:00 06:07 WBC 3.2 L RBC 3.15 L Hgb 10.0 L Hct 31.1 L MCV 99 H MCH 31.7 MCHC 32.1 RDW 23.1 H Plt Count 138 L Seg Neutrophils % Not Reportable Sodium Potassium Chloride Carbon Dioxide Anion Gap BUN Creatinine Est GFR ( Amer) Glucose Lactic Acid 1.6 2.1 Calcium Total Bilirubin AST Alkaline Phosphatase Total Protein Albumin 07/29/19 06:07 WBC RBC Hgb Hct MCV MCH MCHC RDW Plt Count Seg Neutrophils % Sodium 134.2 L Potassium 4.5 Chloride 99 Carbon Dioxide 27 Anion Gap 8 BUN 21 H Creatinine 6.13 H Est GFR ( Amer) 11 L Glucose 112 H Lactic Acid Calcium 9.5 Total Bilirubin AST Alkaline Phosphatase Total Protein Albumin Impressions: Hand X-Ray 07/28/19 13:24 IMPRESSION: No plain film evidence for osteomyelitis. No acute fracture. Prior amputation 3rd ray on the left. Extensive vascular calcification. Assessment & Plan - Diagnosis (1) Cellulitis of right wrist Is this a current diagnosis for this admission?: Yes Plan: Impression: Clinical improvement in right upper extremity cellulitis, with reduction in erythema and edema; no indication for surgical prevention Recommendations: 1. Continue intravenous antimicrobial therapy 2. Surgery will sign off at this time; reconsult if clinically indicated. 3. I discussed the above with Dr. 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 care use Diabetes mellitus complication status: with circulatory complication Diabetes mellitus complication detail: with peripheral angiopathy with gangrene Qualified Code(s): E11.52 - Type 2 diabetes mellitus with diabetic peripheral angiopathy with gangrene; Z79.4 - detention (current) use of insulin Is this a current diagnosis for this admission?: Yes (6) Anemia in chronic kidney disease (CKD) Qualifiers: Chronic kidney disease stage: on chronic dialysis Is this a current diagnosis for this admission?: Yes (7) Atrial fibrillation Qualifiers: Atrial fibrillation type: unspecified Qualified Code(s): I48.91 - Unspe cified atrial fibrillation Is this a current diagnosis for this admission?: Yes (8) CAD (coronary artery disease) Qualifiers: Coronary Disease-Associated Artery/Lesion type: bypass graft Associated angina: without angina Is this a current diagnosis for this admission?: Yes
--- NOTE | 2019-07-29 11:56 | EKG REPORT ---
SEVERITY:- ABNORMAL ECG - SINUS RHYTHM FIRST DEGREE AV BLOCK RIGHT BUNDLE BRANCH BLOCK : Confirmed by: Rachid Eugene 29-Jul-2019 11:56:15
--- NOTE | 2019-07-29 13:58 | PDOC CONSULTATION ---
Consultation-Blank Consultation: CARDIOLOGY CONSULTATION by Dr. Shraddha Angel on 07/29/2019. Patient seen at 10 AM. 60 minutes spent as patient more than 50% of time spent in direct patient care. REASON FOR CONSULTATION: Patient with significant cardiac history with the patient having a history of coronary artery disease old myocardial infarction history of coronary bypass graft surgery, and ischemic cardiomyopathy. Hence for cardiac management. CONSULT REQUESTING PHYSICIAN: Dr. Baez. HISTORY OF PRESENT ILLNESS: Patient is a 64-year-old [place] male who was admitted with pain and swelling of his right hand. He was diagnosed as having cellulitis and gangrene of the right extremity. General surgery saw the patient and since the patient has significant peripheral vascular disease it is recommended continue antibiotics intravenously. The patient has a significant history of coronary artery disease. History of myocardial infarction history of coronary artery bypass Surgery and history of ischemic cardiomyopathy. He also since surgery has had chest wall pain at the site of the suture of the bypass Surgery. He also has end-stage renal disease on hemodialysis. He also has a history of hypertension and severe peripheral vascular disease. He has bilateral amputations of his legs. The patient states that he has known anginal symptoms. There is no shortness of breath. There is no PND orthopnea. All his complaints are pain and swelling of the right hand which shows dry gangrene of the tips of the fingers all fingers of the right hand and also some swelling and some early cellulitis of the proximal portion of his fingers and hand. He denies any palpitations. Past Medical History Cardiac Medical History: Reports: Atrial Fibrillation, Congestive Heart Failure, Coronary Artery Disease, Myocardial Infarction - x3, Hypertension, Peripheral Vascular Disease Pulmonary Medical History: Reports: Chronic Obstructive Pulmonary Disease (COPD), Respiratory Failure Denies: Asthma, Bronchitis, Pneumonia Neurological Medical History: Denies: Seizures Endocrine Medical History: Reports: Diabetes Mellitus Type 2 Renal/ Medical History: Reports: End Stage Renal Disease GI Medical History: Reports: Gastroesophageal Reflux Disease Denies: Hepatitis, Hiatal Hernia Musculoskeltal Medical History: Denies: Arthritis Skin Medical History: Denies: Psoriasis Psychiatric Medical History: Reports: Depression Traumatic Medical History: Denies: Traumatic Brain Injury Hematology: Past Surgical History Past Surgical History: Reports: Cardiac Catheterization, Coronary Artery Bypass Graft - X3 vessel on October 26, 2017, Coronary Stent, Orthopedic Surgery - R great toe amp. L 3rd/4th toe amp. R BKA. L 3rd finger amp., Vascular Surgery, Other - Cervical laminectomy in 2013 Denies: Pacemaker Social History Information Source: Patient Smoking Status: Former Smoker Electronic Cigarette use?: No Frequency of Alcohol Use: Rare Hx Recreational Drug Use: No Drugs: None Hx Prescription Drug Abuse: No Family History Family History: None, Reviewed & Not Pertinent, CAD, Hypertension, Malignancy Parental Family History Reviewed: Yes Children Family History Reviewed: Yes Sibling(s) Family History Reviewed.: Yes Medication/Allergy Home Medications: Aspirin [Adult Low Dose Aspirin EC] 81 mg PO DAILY 03/12/19 Atorvastatin Calcium [Lipitor 40 mg Tablet] 40 mg PO QHS 03/12/19 Calcium Acetate [Phoslo 667 mg Capsule] 667 mg PO MEALS 03/12/19 Clopidogrel Bisulfate [Plavix 75 mg Tablet] 75 mg PO DAILY 03/12/19 Gabapentin [Neurontin 100 mg Capsule] 100 mg PO Q12 03/12/19 Hydrocodone/Acetaminophen [[place] 10-325 mg Tablet] 1 tab PO Q8HP PRN 03/12/19 Insulin Glargine,Hum.rec.anlog [Lantus Insulin 100 Unit/1 ml 10 ml] 5 units SQ DAILY 03/12/19 Midodrine HCl 2.5 mg PO TID 03/12/19 Mupirocin [Bactroban 2% Ointment 22 gm] 1 applic TOP BID 03/12/19 Docusate Sodium [Colace 100 mg Capsule] 1 tab PO PRN PRN 07/12/19 Folic Acid/Vit Bcomp,C/Cu/Zinc [Folbee Plus Cz Tablet] 1 each PO DAILY 07/12/19 Polyethylene Glycol 3350 [Glycolax] 119 gm PO DAILY 07/12/19 Allergies/Adverse Reactions: erythromycin base Allergy (Verified 03/12/19 07:04) vancomycin [Vancomycin] Adverse Reaction (Unknown, Verified 03/12/19 07:04) molina syndrome morphine Adverse Reaction (Verified 03/12/19 07:04) RESUSCITATION STATUS: The patient is a full code. His is his surrogate healthcare decision maker. Current Medications Generic Name Dose Route Start Last Admin Trade Name Freq PRN Reason Stop Dose Admin Acetaminophen 650 mg 07/28/19 17:51 07/29/19 02:47 Tylenol 325 Mg Tablet PO 08/27/19 17:50 650 mg Q4HP PRN Administration FOR PAIN OR TEMP Albuterol/Ipratropium 3 ml 07/28/19 17:51 Duoneb 3 Ml Ampul NEB 08/27/19 17:50 RTQ6HP PRN SHORTNESS OF BREATH Aspirin 81 mg 07/30/19 10:00 Ecotrin 81 Mg Ec Tablet PO 08/29/19 09:59 DAILY [facility] Atorvastatin Calcium 40 mg 07/29/19 22:00 Lipitor 40 Mg Tablet PO 08/28/19 21:59 QHS [facility] Clopidogrel Bisulfate 75 mg 07/30/19 10:00 Plavix 75 Mg Tablet PO 08/29/19 09:59 DAILY [facility] Dextrose 12.5 gm 07/28/19 17:56 Dextrose Inj 50% Syringe (25 Gm/50 Ml) IV 08/27/19 17:55 PRN PRN FOR BG 50-69 IN ALERT PATIENT Protocol Dextrose 25 gm 07/28/19 17:56 Dextrose Inj 50% Syringe (25 Gm/50 Ml) IV 08/27/19 17:55 PRN PRN PER PROTOCOL Protocol Docusate Sodium 100 mg 07/28/19 18:00 07/29/19 10:14 Colace 100 Mg Capsule PO 08/27/19 17:59 100 mg BID DAMIEN Administration Gabapentin 100 mg 07/29/19 13:11 Neurontin 100 Mg Capsule PO 08/28/19 13:10 Q12HP PRN FOR NEUROPATHY Glucagon 1 mg 07/28/19 17:56 Glucagen Inj 1 Mg Vial IM 08/27/19 17:55 PRN PRN Evaluate for BG < 70 Protocol Glucose 15 gm 07/28/19 17:56 Glutose 40% Gel 15 Gm Tube PO 08/27/19 17:55 PRN PRN FOR BG 50-69 IN ALERT PATIENT Protocol Glucose 30 gm 07/28/19 17:56 Glutose 40% Gel 15 Gm Tube PO 08/27/19 17:55 PRN PRN FOR BG < 50 IN ALERT PATIENT Protocol Heparin Sodium (Porcine) 5,000 unit 07/28/19 22:00 07/29/19 06:29 Heparin Inj 5,000 Units/Ml 1 Ml Vial SUBCUT 08/27/19 21:59 Not Given Q8 [facility] Clindamycin Phosphate/Dextrose 600 mg in 50 mls @ 50 mls/hr 07/29/19 02:00 07/29/19 10:15 Cleocin Rtu 600 Mg/D5w 50 Ml Premix IV 08/05/19 01:59 100 mls/hr Q8A DAMIEN 100 mls/hr Administration Insulin Human Lispro 0 - 12 unit 07/28/19 22:00 07/29/19 10:10 Humalog Insulin 100 Unit/1 Ml 3 Ml Vial SUBCUT 08/27/19 21:59 Not Given ACHS [facility] Protocol Midodrine 5 mg 07/29/19 14:00 Proamatine 5 Mg Tablet PO 08/28/19 13:59 Q8 DAMIEN Oxycodone HCl 15 mg 07/29/19 13:11 Oxy-Ir 5 Mg Tablet PO 08/05/19 13:10 Q6HP PRN PHANTOM&STUMP PAIN Oxycodone/Acetaminophen 1 tab 07/28/19 17:51 07/29/19 02:32 Percocet 5-325 Mg Tablet PO 08/04/19 17:50 1 tab Q4HP PRN Administration FOR PAIN Patient Own Medication 1 each 07/30/19 10:00 Folic Acid/Vit Bcomp,C/Cu/Zinc [Folbee Plus Cz Tablet] PO 08/29/19 09:59 DAILY [facility] Discontinued Medications Generic Name Dose Route Start Last Admin Trade Name Freq PRN Reason Stop Dose Admin Clindamycin Phosphate/Dextrose 600 mg in 50 mls @ 50 mls/hr 07/28/19 16:03 07/28/19 17:40 Cleocin Rtu 600 Mg/D5w 50 Ml Premix IV 07/28/19 17:02 Infused NOW ONE Infusion Review of Systems Constitutional: PRESENT: weakness. ABSENT: chills, fever(s), headache(s), weight gain, weight loss Eyes: ABSENT: visual disturbances Ears: ABSENT: hearing changes Cardiovascular: ABSENT: chest pain, dyspnea on exertion, edema, orthropnea, palpitations Respiratory: ABSENT: cough, hemoptysis Gastrointestinal: ABSENT: abdominal pain, constipation, diarrhea, hematemesis, hematochezia, nausea, vomiting Genitourinary: ABSENT: dysuria, hematuria Musculoskeletal: ABSENT: joint swelling Integumentary: ABSENT: rash, wounds Neurological: ABSENT: abnormal gait, abnormal speech, confusion, dizziness, focal weakness, syncope Psychiatric: ABSENT: anxiety, depression, homidical ideation, suicidal ideation Endocrine: ABSENT: cold intolerance, heat intolerance, menstrual abnormalities, polydipsia, polyuria Hematologic/Lymphatic: ABSENT: easy bleeding, easy bruising, lymphadenopathy PHYSICAL EXAMINATION: The patient appears to be chronically ill. And appears to be a frail build. Selected Entries 07/29/19 07:50 Temperature 98.2 F Temperature Oral Source Pulse Rate 112 H Respiratory 18 Rate Blood Pressure 103/32 L Blood Pressure 55 Mean BP Position Supine O2 Sat by Pulse 97 Oximetry Oxygen Delivery Room Air Method General appearance: PRESENT: no acute distress, well-developed, well-nourished Head exam: PRESENT: atraumatic, normocephalic Eye exam: PRESENT: conjunctiva pink, EOMI, PERRLA. ABSENT: scleral icterus Ear exam: PRESENT: normal external ear exam Mouth exam: PRESENT: moist, tongue midline Neck exam: PRESENT: full ROM. ABSENT: carotid bruit, JVD, lymphadenopathy, thyromegaly LUNGS: There is diminished air entry and prolonged expiration. There is no rhonchi rales or wheezing. Chest wall palpation shows a flail sternotomy incision. Cardiovascular exam: PRESENT: RRR. ABSENT: diastolic murmur, rubs, systolic murmur Vascular exam: There is dry gangrene of the fingers of the right hand. There is severely diminished femoral pulses. He has left and right BKA. GI/Abdominal exam: PRESENT: normal bowel sounds, soft. ABSENT: distended, guarding, mass, organolmegaly, rebound, tenderness Rectal exam: PRESENT: deferred Extremities exam: PRESENT: right and left BKA. ABSENT: pedal edema. There is cellulitis of the right hand with dry gangrene at the ends of all fingers of his right hand. EKG:SINUS RHYTHM [1AVB] . FIRST DEGREE AV BLOCK [RBBB] . RIGHT BUNDLE BRANCH BLOCK. Labs- All tests 24 hr 07/28/19 07/28/19 07/28/19 14:16 14:16 14:16 WBC 3.7 L RBC 3.19 L Hgb 10.1 L Hct 31.7 L MCV 99 H MCH 31.7 MCHC 31.9 L RDW 22.9 H Plt Count 140 L Lymph % (Auto) Not Reportable [place] % (Auto) Not Reportable Eos % (Auto) Not Reportable Baso % (Auto) Not Reportable Absolute Neuts (auto) Not Reportable Absolute Lymphs (auto) Not Reportable Absolute Monos (auto) Not Reportable Absolute Eos (auto) Not Reportable Absolute Basos (auto) Not Reportable Total Counted 100 Seg Neutrophils % Not Reportable Seg Neuts % (Manual) 58 Band Neutrophils % Lymphocytes % (Manual) 22 Monocytes % (Manual) 14 H Eosinophils % (Manual) 4 Basophils % (Manual) 2 Abs Neuts (Manual) 2.1 Abs Lymphs (Manual) 0.8 Abs Monocytes (Manual) 0.5 Absolute Eos (Manual) 0.1 Abs Basophils (Manual) 0.1 Giant Platelets PRESENT Platelet Comment DECREASED Polychromasia SLIGHT Poikilocytosis 1+ Anisocytosis 3+ Macrocytosis SLIGHT Target Cells SLIGHT Schistocytes SLIGHT PT 16.9 H INR 1.36 APTT 43.2 H Sodium 136.2 L Potassium 4.3 Chloride 98 Carbon Dioxide 28 Anion Gap 10 BUN 17 Creatinine 5.61 H Est GFR ( Amer) 12 L Est GFR (MDRD) Non-Af 10 L Glucose 118 H POC Glucose Lactic Acid Calcium 9.7 Total Bilirubin 1.4 H Direct Bilirubin 1.0 H Neonat Total Bilirubin Not Reportable Neonat Direct Bilirubin Not Reportable Neonat Indirect Bili Not Reportable AST 17 ALT 6 Alkaline Phosphatase 106 Total Protein 7.9 Albumin 3.0 L 07/28/19 07/28/19 07/28/19 14:16 16:00 20:00 WBC RBC Hgb Hct MCV MCH MCHC RDW Plt Count Lymph % (Auto) [place] % (Auto) Eos % (Auto) Baso % (Auto) Absolute Neuts (auto) Absolute Lymphs (auto) Absolute Monos (auto) Absolute Eos (auto) Absolute Basos (auto) Total Counted Seg Neutrophils % Seg Neuts % (Manual) Band Neutrophils % Lymphocytes % (Manual) Monocytes % (Manual) Eosinophils % (Manual) Basophils % (Manual) Abs Neuts (Manual) Abs Lymphs (Manual) Abs Monocytes (Manual) Absolute Eos (Manual) Abs Basophils (Manual) Giant Platelets Platelet Comment Polychromasia Poikilocytosis Anisocytosis Macrocytosis Target Cells Schistocytes PT INR APTT Sodium Potassium Chloride Carbon Dioxide Anion Gap BUN Creatinine Est GFR ( Amer) Est GFR (MDRD) Non-Af Glucose POC Glucose Lactic Acid 2.7 H 1.6 2.1 Calcium Total Bilirubin Direct Bilirubin Neonat Total Bilirubin Neonat Direct Bilirubin Neonat Indirect Bili AST ALT Alkaline Phosphatase Total Protein Albumin 07/28/19 07/29/19 07/29/19 21:34 06:07 06:07 WBC 3.2 L RBC 3.15 L Hgb 10.0 L Hct 31.1 L MCV 99 H MCH 31.7 MCHC 32.1 RDW 23.1 H Plt Count 138 L Lymph % (Auto) Not Reportable [place] % (Auto) Not Reportable Eos % (Auto) Not Reportable Baso % (Auto) Not Reportable Absolute Neuts (auto) Not Reportable Absolute Lymphs (auto) Not Reportable Absolute Monos (auto) Not Reportable Absolute Eos (auto) Not Reportable Absolute Basos (auto) Not Reportable Total Counted 100 Seg Neutrophils % Not Reportable Seg Neuts % (Manual) 42 Band Neutrophils % 2 L Lymphocytes % (Manual) 27 Monocytes % (Manual) 13 Eosinophils % (Manual) 16 H D Basophils % (Manual) 0 Abs Neuts (Manual) 1.4 L Abs Lymphs (Manual) 0.9 Abs Monocytes (Manual) 0.4 Absolute Eos (Manual) 0.5 Abs Basophils (Manual) 0.0 Giant Platelets Platelet Comment DECREASED Polychromasia Poikilocytosis Anisocytosis 1+ Macrocytosis Target Cells Schistocytes PT INR APTT Sodium 134.2 L Potassium 4.5 Chloride 99 Carbon Dioxide 27 Anion Gap 8 BUN 21 H Creatinine 6.13 H Est GFR ( Amer) 11 L Est GFR (MDRD) Non-Af 9 L Glucose 112 H POC Glucose 150 H Lactic Acid Calcium 9.5 Total Bilirubin Direct Bilirubin Neonat Total Bilirubin Neonat Direct Bilirubin Neonat Indirect Bili AST ALT Alkaline Phosphatase Total Protein Albumin 07/29/19 07/29/19 07:47 12:12 WBC RBC Hgb Hct MCV MCH MCHC RDW Plt Count Lymph % (Auto) [place] % (Auto) Eos % (Auto) Baso % (Auto) Absolute Neuts (auto) Absolute Lymphs (auto) Absolute Monos (auto) Absolute Eos (auto) Absolute Basos (auto) Total Counted Seg Neutrophils % Seg Neuts % (Manual) Band Neutrophils % Lymphocytes % (Manual) Monocytes % (Manual) Eosinophils % (Manual) Basophils % (Manual) Abs Neuts (Manual) Abs Lymphs (Manual) Abs Monocytes (Manual) Absolute Eos (Manual) Abs Basophils (Manual) Giant Platelets Platelet Comment Polychromasia Poikilocytosis Anisocytosis Macrocytosis Target Cells Schistocytes PT INR APTT Sodium Potassium Chloride Carbon Dioxide Anion Gap BUN Creatinine Est GFR ( Amer) Est GFR (MDRD) Non-Af Glucose POC Glucose 113 H 130 H Lactic Acid Calcium Total Bilirubin Direct Bilirubin Neonat Total Bilirubin Neonat Direct Bilirubin Neonat Indirect Bili AST ALT Alkaline Phosphatase Total Protein Albumin IMPRESSION/RECOMMENDATION: 1. Cellulitis and gangrene of fingers of the right hand. Continue IV antibiotics. 2. Ischemic cardia myopathy.: The patient was referred for AICD. But he has not cardia done as yet. 3. Coronary artery disease history of myocardial infarction. History of coronary bypass graft surgery. At present no anginal symptoms. Continue current medication. 4. Severe peripheral vascular disease. 5. Hypertension. 6. Diabetes mellitus with peripheral vascular disease and diabetic nephropathy. 7. End-stage renal disease on dialysis. 8. A past history of atrial fibrillation. At present patient is sinus rhythm. Continue current medication, 9. Right bundle branch block pattern. 10. Chronic obstructive pulmonary disease.: Stable no evidence of acute exacerbation. 11.Flail sternotomy wound healing. At present no chest wall pain Medications reviewed. Medical regimen and management plan discussed with attending patient on the case. Medical decision making hours of moderate complexity. 60 minutes spent as patient more than 50% of time spent direct patient care. Will follow.
[2019-07-29] MEDS: OXYCODONE HCL IR 5 MG TABLET PO PRN (15:45)
[2019-07-29] MEDS: MIDODRINE HCL 5 MG TABLET PO SCH ×2 (15:46→17:34)
--- NOTE | 2019-07-29 16:17 | XCELERA REPORT ---
[address] [address] Upper Extremity Arterial Evaluation Name: CHAPITO LESLIE Age: 64 yrs Gender: Male : 1955 Patient Status: Inpatient Patient Location: [place] [address]^A Study Date: 07/28/2019 02:26 PM Procedure: A duplex scan of the upper extremity arteries was performed bilaterally. Reason For Study: hand pain b/l, swelling, no palp pulses Ordering Physician: MEG ESCALANTE Performed By: Giuliana Moncada Measurements and Calculations Right Left Prox SCLA PSV 79.6 214.1 cm/sec Prox SCLA EDV 62.9 cm/sec Mid SCLA PSV -75.6 cm/sec Ax A PSV -46.3 104.1 cm/sec Prox Brach A PSV 190.3 cm/sec Dist Brach A PSV 69.9 286.3 cm/sec Dist Rad A PSV -95.8 41.2 cm/sec Dist Ulnar A PSV 23.8 22.5 cm/sec Ax A PSV -46.3 104.1 cm/sec Dist Brach A PSV 69.9 286.3 cm/sec Dist Rad A PSV -95.8 41.2 cm/sec Dist Ulnar A PSV 23.8 22.5 cm/sec Mid SCLA PSV -75.6 cm/sec Prox Brach A PSV 190.3 cm/sec Right Side Arterial Evaluation Extensively calcified arteries noted. Normal velocity and triphasic waveforms noted in the Common Carotid artery. Biphasic with normal velocity, spectral broadening from the Subclavian to Brachial. Monophasic with normal velocity, spectral broadening in the Radial, low velocity in the Ulnar artery. Left Side Arterial Evaluation Extensively calcified arteries noted. Normal velocity and triphasic waveforms noted in the Common Carotid artery. Biphasic with normal velocity, spectral broadening from the Subclavian to Brachial. Increased velocity in the Brachial. Arteriovenous fistula is noted. Monophasic with normal velocity, spectral broadening in the Radial, low velocity in the Ulnar artery. Interpretation Summary Moderate hemodynamically significant lesions in the bilateral upper extremities, on duplex imaging, at rest. Duplex findings of patent AV fistula in the left upper extremity, which may distort arterial findings, Intrinsic arterial disease, calcification, impeded flow, bilaterally. : MEG ESCALANTE, Anjum Berg
[2019-07-29] MEDS: GABAPENTIN 100 MG CAPSULE PO PRN (21:28)
[2019-07-29] MEDS: ATORVASTATIN CALCIUM 40 MG TABLET PO SCH (21:28)
[2019-07-30] MEDS: OXYCODONE-ACETAMINOPHEN 5-325 MG TABLET PO PRN ×2 (00:18→19:53)
[2019-07-30] MEDS: CLINDAMYCIN 600 MG/D5W RTU 600 MG/50 ML RTUPB IV SCH ×3 (02:55→18:11)
[2019-07-30] MEDS: HEPARIN SOD (PORCINE) 5,000 UNIT/ML 1 ML VIAL SUBCUT SCH ×3 (05:20→22:24)
[2019-07-30 05:59] LABS: HEMATOCRIT 31.4 % (37.9-51.0); HEMOGLOBIN 9.9 g/dL (13.5-17.0); MEAN CORPUSCULAR HGB CONC 31.4 g/dL (32.0-36.0); MEAN CORPUSCULAR VOLUME 99 fl (80-97); PLATELET COUNT 154 10^3/uL (150-450); RED BLOOD COUNT 3.18 10^6/uL (4.35-5.55); RED CELL DISTRIBUTION WIDTH 23.4 % (11.5-14.0)
[2019-07-30 06:19] LABS: ANION GAP 13 (5-19); BLOOD UREA NITROGEN 28 mg/dL (7-20); CALCIUM 9.4 mg/dL (8.4-10.2); CARBON DIOXIDE 24 mmol/L (22-30); CHLORIDE 98 mmol/L (98-107); GLUCOSE 91 mg/dL (75-110); POTASSIUM 4.8 mmol/L (3.6-5.0)
--- NOTE | 2019-07-30 08:52 | PDOC PROGRESS REPORT ---
Subjective Progress Note for:: 07/30/19 Subjective:: Patient is currently doing better Patient's right hand swelling and the redness is also improving No chest pain no short of breath Reason For Visit: RT UPPER CELLULITIS Physical Exam Vital Signs: Temp Pulse Resp BP Pulse Ox 97.4 F 59 L 14 124/71 97 07/30/19 03:16 07/30/19 07:00 07/30/19 03:16 07/30/19 03:16 07/30/19 03:16 Intake & Output 07/29/19 07/30/19 07/31/19 06:59 06:59 06:59 Intake Total 582 710 Output Total 0 0 Balance 582 710 Weight 76.7 kg 76.8 kg General appearance: PRESENT: no acute distress, well-developed, well-nourished Head exam: PRESENT: atraumatic, normocephalic Eye exam: PRESENT: conjunctiva pink, EOMI, PERRLA. ABSENT: scleral icterus Ear exam: PRESENT: normal external ear exam Mouth exam: PRESENT: moist, tongue midline Neck exam: PRESENT: full ROM. ABSENT: carotid bruit, JVD, lymphadenopathy, thyromegaly Respiratory exam: PRESENT: clear to auscultation john Cardiovascular exam: PRESENT: RRR. ABSENT: diastolic murmur, rubs, systolic murmur Vascular exam: PRESENT: normal capillary refill GI/Abdominal exam: PRESENT: normal bowel sounds, soft. ABSENT: distended, guarding, mass, organolmegaly, rebound, tenderness Rectal exam: PRESENT: deferred Additional comments: Right hand swelling And redness is all reduce Neurological exam: PRESENT: alert, awake, oriented to person, oriented to place, oriented to time, oriented to situation, CN II-XII grossly intact. ABSENT: motor sensory deficit Psychiatric exam: PRESENT: appropriate affect, normal mood. ABSENT: homicidal ideation, suicidal ideation Skin exam: PRESENT: dry, intact, warm. ABSENT: cyanosis, rash Results Laboratory Results: 07/30/19 05:21 07/30/19 05:21 07/30/19 07/30/19 05:21 05:21 WBC 5.0 RBC 3.18 L Hgb 9.9 L Hct 31.4 L MCV 99 H MCH 31.0 MCHC 31.4 L RDW 23.4 H Plt Count 154 Sodium 135.0 L Potassium 4.8 Chloride 98 Carbon Dioxide 24 Anion Gap 13 BUN 28 H Creatinine 7.23 H Est GFR ( Amer) 9 L Glucose 91 Calcium 9.4 Impressions: Hand X-Ray 07/28/19 13:24 IMPRESSION: No plain film evidence for osteomyelitis. No acute fracture. Prior amputation 3rd ray on the left. Extensive vascular calcification. Assessment & Plan - Diagnosis (1) Cellulitis of right wrist Is this a current diagnosis for this admission?: Yes (2) PVD (peripheral vascular disease) Is this a current diagnosis for this admission?: Yes (3) S/P bilateral BKA (below knee amputation) Is this a current diagnosis for this admission?: Yes (4) Status post amputation of finger of left hand Is this a current diagnosis for this admission?: Yes 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: Diabetes mellitus senior living insulin use: with director long term care use Diabetes mellitus complication status: with circulatory complication Diabetes mellitus complication detail: with peripheral angiopathy with gangrene Qualified Code(s): E11.52 - Type 2 diabetes mellitus with diabetic peripheral angiopathy with gangrene; Z79.4 - correction (current) use of insulin Is this a current diagnosis for this admission?: Yes (6) Anemia in chronic kidney disease (CKD) Qualifiers: Chronic kidney disease stage: on chronic dialysis Is this a current diagnosis for this admission?: Yes (7) Atrial fibrillation Qualifiers: Atrial fibrillation type: unspecified Qualified Code(s): I48.91 - Unspecified atrial fibrillation Is this a current diagnosis for this admission?: Yes (8) CAD (coronary artery disease) Qualifiers: Coronary Disease-Associated Artery/Lesion type: bypass graft Associated angina: without angina Is this a current diagnosis for this admission?: Yes (9) Chronic pain syndrome Is this a current diagnosis for this admission?: Yes (10) Congestive heart failure Qualifiers: Heart failure type: combined systolic and diastolic Heart failure chronicity: chronic Qualified Code(s): I50.42 - Chronic combined systolic (congestive) and diastolic (congestive) heart failure Is this a current diagnosis for this admission?: Yes (11) Coronary artery disease Qualifiers: Coronary Disease-Associated Artery/Lesion type: unspecified vessel or lesion type Is this a current diagnosis for this admission?: Yes (12) End stage renal disease Is this a current diagnosis for this admission?: Yes (13) Hypertension Qualifiers: Hypertension type: essential hypertension Qualified Code(s): I10 - Essential (primary) hypertension Is this a current diagnosis for this admission?: Yes - Time Time Spent with patient: 15-24 minutes Level of Care: IMCU Medications reviewed and adjusted accordingly: Yes Anticipated discharge: Other Within: Other - Plan Summary Plan Summary: Continues the IV antibiotics patient is currently on dialysis
[2019-07-30] MEDS ORDERED: NORMAL SALINE 1000 ML 1,000 ML IV PRN (09:59)
[2019-07-30] MEDS ORDERED: EPOETIN ALFA-EPBX 2,000 UNIT, EPOETIN ALFA-EPBX 3,000 UNIT in SYRINGE, DISPOSABLE, 1 EACH IV PRN (09:59)
[2019-07-30] MEDS ORDERED: [UNRECOGNIZED DRUG - OTHER] PO SCH (10:00)
[2019-07-30] MEDS ORDERED: VIT BCOMP C PO SCH (10:00)
[2019-07-30] MEDS ORDERED: FOLIC ACID PO SCH (10:00)
[2019-07-30] MEDS ORDERED: ZINC PO SCH (10:00)
[2019-07-30] MEDS: INSULIN LISPRO 100 UNIT/ML 3 ML VIAL SUBCUT SCH ×4 (12:53→22:23)
[2019-07-30] MEDS: DOCUSATE SODIUM 100 MG CAPSULE PO SCH ×2 (12:54→18:00)
[2019-07-30] MEDS: ASPIRIN 81 MG TABLET, ENT COATED PO SCH (12:55)
[2019-07-30] MEDS: CLOPIDOGREL BISULFATE 75 MG TABLET PO SCH (12:55)
[2019-07-30] MEDS: MIDODRINE HCL 5 MG TABLET PO SCH ×3 (12:55→18:06)
[2019-07-30] MEDS: VITAMIN B COMPLEX TABLET PO SCH (12:56)
[2019-07-30] MEDS: OXYCODONE HCL IR 5 MG TABLET PO PRN (13:20)
[2019-07-30] MEDS: CEFEPIME 1 GM/D5W RTU 1 GM/50 ML RTUPB IV SCH ×2 (18:04→22:23)
[2019-07-30] MEDS: ACETAMINOPHEN 325 MG TABLET PO PRN (19:53)
[2019-07-30] MEDS: ATORVASTATIN CALCIUM 40 MG TABLET PO SCH ×2 (22:23→22:28)
--- NOTE | 2019-07-30 23:04 | PDOC CONSULTATION ---
Consultation Consult Date: 07/30/19 Provider Consulted: SHEN AZUL Consult reason:: ESRD on HD. 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 Patient has ongoing issues with dry gangrene on his fingers of bilateral hands. He states that he went to the emergency room because his right hand pain has gotten unbearable. X-rays were obtained in the emergency room which did not show any evidence of osteomyelitis nor fracture but notes extensive vascular calcifications. The ultrasound of the right hand also showed hemodynamically significant lesions on right upper extremity and bilateral calcifications as well. Surgery has seen him on admission recommendation was to treat the cellulitis but no surgical intervention at this time. Patient was seen by an orthopedic surgeon in [place] who contemplated doing right hand amputation because of this dry gangrene but due to logistical issue this was not pursued. Patient was started on IV antibiotics. This morning I am seeing the patient during dialysis treatment. His right hand still swollen. He reports his usual shortness of breath. He denies any current chest pains but admits to having chest pains occasionally. He is so far tolerating dialysis without any much issues today. Past Medical History Cardiac Medical History: Reports: Atrial Fibrillation, CHF-Diastolic, Coronary Artery Disease, Hypertension-primary, Myocardial Infarction - x3, Peripheral Vascular Disease Pulmonary Medical History: Reports: Chronic Obstructive Pulmonary Disease (COPD), Respiratory Failure Endocrine Medical History: Reports: Diabetes Mellitus Type 2 Complications of Diabetes: Reports: Nephropathy Renal/ Medical History: Reports: End Stage Renal Disease, Hyperphosphatemia, Secondary Hyperparathyroidism GI Medical History: Reports: Gastroesophageal Reflux Disease Psychiatric Medical History: Reports: Depression Hematology Medical History: Reports Anemia of Chronic Kidney Disease Past Surgical History Past Surgical History: Reports: Cardiac Catheterization, Coronary Artery Bypass Graft - X3 vessel on October 26, 2017, Coronary Stent, Dialysis Access Surgery AVF, Orthopedic Surgery - R great toe amp. L 3rd/4th toe amp. Bilateral BKA. L 3rd finger amp., Vascular Surgery, Other - Cervical laminectomy in 2013 Social History Information Source: Patient, H Records Lives with: Spouse/Significant other Smoking Status: Former Smoker Electronic Cigarette use?: No Frequency of Alcohol Use: Rare Hx Recreational Drug Use: No Drugs: None Hx Prescription Drug Abuse: No - Advance Directive Resuscitation Status: Full Code Family History Family History: Reviewed & Not Pertinent Parental Family History Reviewed: Yes Children Family History Reviewed: Yes Sibling(s) Family History Reviewed.: Yes Medication/Allergy Home Medications: Aspirin [Adult Low Dose Aspirin EC] 81 mg PO DAILY 03/12/19 Atorvastatin Calcium [Lipitor 40 mg Tablet] 40 mg PO QHS 03/12/19 Clopidogrel Bisulfate [Plavix 75 mg Tablet] 75 mg PO DAILY 03/12/19 Gabapentin [Neurontin 100 mg Capsule] 100 mg PO Q12HP PRN 03/12/19 Midodrine HCl 5 mg PO TID 03/12/19 Folic Acid/Vit Bcomp,C/Cu/Zinc [Folbee Plus Cz Tablet] 1 each PO DAILY 07/12/19 Hydromorphone HCl [Dilaudid] 4 mg PO QIDP PRN 07/29/19 Oxycodone HCl [Roxicodone] 15 mg PO Q6HP PRN 07/29/19 Allergies/Adverse Reactions: erythromycin base Allergy (Verified 03/12/19 07:04) vancomycin [Vancomycin] Adverse Reaction (Unknown, Verified 03/12/19 07:04) molina syndrome morphine Adverse Reaction (Verified 03/12/19 07:04) Review of Systems All systems: reviewed and no additional remarkable complaints except as stated Review of Systems: Constitutional: ABSENT: chills, fatigue, fever(s), headache(s), weight gain, weight loss Eyes: ABSENT: visual disturbances Ears: ABSENT: hearing changes Cardiovascular: ABSENT: Dyspnea on exertion, edema, orthropnea, palpitations; admits occasional chest pains Respiratory: ABSENT: cough, hemoptysis; admits baseline shortness of breath Gastrointestinal: ABSENT: abdominal pain, constipation, diarrhea, hematemesis, hematochezia, nausea, vomiting Genitourinary: ABSENT: dysuria, hematuria Musculoskeletal: ABSENT: joint swelling; right hand pain Integumentary: ABSENT: rash, wounds Neurological: ABSENT: abnormal gait, abnormal speech, confusion, dizziness, focal weakness, numbness, syncope Psychiatric: ABSENT: anxiety, depression Endocrine: ABSENT: cold intolerance, heat intolerance, polydipsia, polyuria Hematologic/Lymphatic: ABSENT: easy bleeding, easy bruising, lymphadenopathy Physical Exam Vital Signs: Temp Pulse Resp BP Pulse Ox 97.4 F 59 L 14 124/71 97 07/30/19 03:16 07/30/19 07:00 07/30/19 03:16 07/30/19 03:16 07/30/19 03:16 Intake & Output 07/29/19 07/30/19 07/31/19 06:59 06:59 06:59 Intake Total 582 710 Output Total 0 0 Balance 582 710 Weight 76.7 kg 76.8 kg Vitals during dialysis: Blood pressure 113/26, heart rate of 59, blood flow rate of 400 mL/min and dialysate flow rate of 800 mL/min. Exam: General appearance: No acute distress, cooperative, well-developed, well- nourished Head exam: PRESENT: atraumatic, normocephalic Eye exam: PRESENT: Conjunctiva Higginson, EOMI, PERRLA. ABSENT: conjunctival injection, scleral icterus Mouth exam: PRESENT: moist, neck supple, tongue midline Neck exam: PRESENT: full ROM. ABSENT: carotid bruit, JVD, lymphadenopathy, t hyromegaly Respiratory exam: PRESENT: clear to auscultation bilaterally. ABSENT: rales, rhonchi, stridor, wheezes Cardiovascular exam: PRESENT: RRR, +S1, +S2. ABSENT: systolic murmur Pulses: PRESENT: normal radial pulses, normal dorsalis pedis pulses GI/Abdominal exam: PRESENT: normal bowel sounds, soft. ABSENT: guarding, mass, tenderness Rectal exam: Deferred Extremities exam: PRESENT: full ROM. ABSENT: calf tenderness, pedal edema Musculoskeletal: PRESENT: full ROM. Right hand is still swollen with very minimal redness. His right 2nd-4th digits distal dry gangrene. In his left hand he has amputated left middle finger. Left second and fourth digit also has left distal digital gangrene. He has bilateral below-knee amputation Neurological exam: PRESENT: alert, Awake, Oriented to person, Oriented to place, Oriented to time, reflexes normal, CN II-XII grossly intact. ABSENT: motor sensory deficit Psychiatric exam: PRESENT: appropriate affect, normal mood. ABSENT: homicidal ideation, suicidal ideation Skin exam: PRESENT: intact, dry, warm. ABSENT: rash Results Laboratory Results: 07/30/19 05:21 07/30/19 05:21 07/30/19 07/30/19 05:21 05:21 WBC 5.0 RBC 3.18 L Hgb 9.9 L Hct 31.4 L MCV 99 H MCH 31.0 MCHC 31.4 L RDW 23.4 H Plt Count 154 Sodium 135.0 L Potassium 4.8 Chloride 98 Carbon Dioxide 24 Anion Gap 13 BUN 28 H Creatinine 7.23 H Est GFR ( Amer) 9 L Glucose 91 Calcium 9.4 Impressions: Hand X-Ray 07/28/19 13:24 IMPRESSION: No plain film evidence for osteomyelitis. No acute fracture. P rior amputation 3rd ray on the left. Extensive vascular calcification. Assessment & Plan - Diagnosis (1) Cellulitis of right hand Is this a current diagnosis for this admission?: Yes Plan: Patient is currently on IV clindamycin. Patient has been evaluated by surgery and no surgical intervention was recommended. (2) End stage renal disease Is this a current diagnosis for this admission?: Yes Plan: We will do dialysis today for 3 hours, using the patient's AV fistula, with 2 potassium bath, blood flow rate of 400 mL per minute, dialysate flow rate of 800 mL per minute, ultrafiltration 1.5 to 2 L as tolerated, no heparin and Procrit with 5000 units during dialysis intravenously. Patient will be monitored throu [facility] dialysis treatment. (3) PVD (peripheral vascular disease) Is this a current diagnosis for this admission?: Yes Plan: Patient has severe peripheral vascular disease with history of multiple amputations. Currently has digital dry gangrene on both of his hands. (4) Chronic kidney disease-mineral and bone disorder Is this a current diagnosis for this admission?: Yes Plan: Patient has chronic severe hyperphosphatemia as a complication of his end-stage renal disease. Unfortunately the patient has long-term history of noncompliance with medications. This cause vascular calcifications and severe peripheral vascular disease. (5) Anemia in chronic kidney disease (CKD) Qualifiers: Chronic kidney disease stage: on chronic dialysis Is this a current diagnosis for this admission?: Yes Plan: We will give Retacrit during dialysis treatment. (6) Type 2 diabetes mellitus Qualifiers: Diabetes mellitus senior care insulin use: with termination clerk use Diabetes mellitus complication status: with circulatory complication Diabetes mellitus complication detail: with peripheral angiopathy with gangrene Qualified Code(s): E11.52 - Type 2 diabetes mellitus with diabetic peripheral angiopathy with gangrene; Z79.4 - penitentiary (current) use of insulin Is this a current diagnosis for this admission?: Yes (7) Hypertension Qualifiers: Hypertension type: essential hypertension Qualified Code(s): I10 - Essential (primary) hypertension Is this a current diagnosis for this admission?: Yes Plan: Currently controlled. - Notes Notes: Thank you very much for this consultation. We will continue to support dialysis while the patient is here. - Time Time Spent: 50 to 70 Minutes
[2019-07-31] MEDS: CLINDAMYCIN 600 MG/D5W RTU 600 MG/50 ML RTUPB IV SCH ×3 (02:34→17:42)
[2019-07-31] MEDS: OXYCODONE-ACETAMINOPHEN 5-325 MG TABLET PO PRN ×2 (02:36→20:50)
[2019-07-31] MEDS: ACETAMINOPHEN 325 MG TABLET PO PRN ×2 (02:36→20:50)
[2019-07-31] MEDS: HEPARIN SOD (PORCINE) 5,000 UNIT/ML 1 ML VIAL SUBCUT SCH ×2 (05:19→13:04)
[2019-07-31] MEDS: INSULIN LISPRO 100 UNIT/ML 3 ML VIAL SUBCUT SCH ×3 (08:50→16:51)
[2019-07-31] MEDS: MIDODRINE HCL 5 MG TABLET PO SCH ×3 (09:21→17:42)
[2019-07-31] MEDS: ASPIRIN 81 MG TABLET, ENT COATED PO SCH (09:21)
[2019-07-31] MEDS: OXYCODONE HCL IR 5 MG TABLET PO PRN (09:22)
[2019-07-31] MEDS: VITAMIN B COMPLEX TABLET PO SCH (09:22)
[2019-07-31] MEDS: CLOPIDOGREL BISULFATE 75 MG TABLET PO SCH (09:22)
[2019-07-31] MEDS: DOCUSATE SODIUM 100 MG CAPSULE PO SCH ×2 (09:22→17:42)
[2019-07-31] MEDS: CEFEPIME 1 GM/D5W RTU 1 GM/50 ML RTUPB IV SCH (09:22)
--- NOTE | 2019-07-31 11:05 | PDOC PROGRESS REPORT ---
Subjective Progress Note for:: 07/31/19 Subjective:: Patient is currently doing same Patient's right hand swelling is improved Patient's 1 blood culture is +1- Patient's denied any chest pain no short of breath Reason For Visit: RT UPPER CELLULITIS Physical Exam Vital Signs: Temp Pulse Resp BP Pulse Ox 98.3 F 58 L 16 125/90 H 99 07/31/19 07:20 07/31/19 07:20 07/31/19 07:20 07/31/19 07:20 07/31/19 07:20 Intake & Output 07/30/19 07/31/19 08/01/19 06:59 06:59 06:59 Intake Total 710 920 Output Total 0 2000 Balance 710 -1080 Weight 76.8 kg 81.8 kg General appearance: PRESENT: no acute distress, other Head exam: PRESENT: atraumatic, normocephalic Eye exam: PRESENT: conjunctiva pink, EOMI, PERRLA. ABSENT: scleral icterus Ear exam: PRESENT: normal external ear exam Mouth exam: PRESENT: moist, tongue midline Neck exam: PRESENT: full ROM. ABSENT: carotid bruit, JVD, lymphadenopathy, thyromegaly Respiratory exam: PRESENT: clear to auscultation john Cardiovascular exam: PRESENT: RRR. ABSENT: diastolic murmur, rubs, systolic murmur Vascular exam: PRESENT: normal capillary refill GI/Abdominal exam: PRESENT: normal bowel sounds, soft. ABSENT: distended, guarding, mass, organolmegaly, rebound, tenderness Rectal exam: PRESENT: deferred Additional comments: Right hand swelling and the redness is all improving Neurological exam: PRESENT: alert, awake, oriented to person, oriented to place, oriented to time, oriented to situation, CN II-XII grossly intact. ABSENT: motor sensory deficit Psychiatric exam: PRESENT: appropriate affect, normal mood. ABSENT: homicidal ideation, suicidal ideation Skin exam: PRESENT: dry, intact, warm. ABSENT: cyanosis, rash Results Laboratory Results: 07/30/19 05:21 07/30/19 05:21 07/28/19 15:54 Blood Blood Culture (PCR) - Final Pseudomonas Aeruginosa Impressions: Hand X-Ray 07/28/19 13:24 IMPRESSION: No plain film evidence for osteomyelitis. No acute fracture. Prior amputation 3rd ray on the left. Extensive vascular calcification. Assessment & Plan - Diagnosis (1) Cellulitis of right wrist Is this a current diagnosis for this admission?: Yes (2) PVD (peripheral vascular disease) Is this a current diagnosis for this admission?: Yes (3) S/P bilateral BKA (below knee amputation) Is this a current diagnosis for this admission?: Yes (4) Status post amputation of finger of left hand Is this a current diagnosis for this admission?: Yes 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: Diabetes mellitus vermin exterminator insulin use: with vermin exterminator use Diabetes mellitus complication status: with circulatory complication Diabetes mellitus complication detail: with peripheral angiopathy with gangrene Qualified Code(s): E11.52 - Type 2 diabetes mellitus with diabetic peripheral angiopathy with gangrene; Z79.4 - care home (current) use of insulin Is this a current diagnosis for this admission?: Yes (6) Anemia in chronic kidney disease (CKD) Qualifiers: Chronic kidney disease stage: on chronic dialysis Is this a current diagnosis for this admission?: Yes (7) Atrial fibrillation Qualifiers: Atrial fibrillation type: unspecified Qualified Code(s): I48.91 - Unspecified atrial fibrillation Is this a current diagnosis for this admission?: Yes (8) CAD (coronary artery disease) Qualifiers: Coronary Disease-Associated Artery/Lesion type: bypass graft Associated angina: without angina Is this a current diagnosis for this admission?: Yes (9) Chronic pain syndrome Is this a current diagnosis for this admission?: Yes (10) Congestive heart failure Qualifiers: Heart failure type: combined systolic and diastolic Heart failure ch ronicity: chronic Qualified Code(s): I50.42 - Chronic combined systolic (congestive) and diastolic (congestive) heart failure Is this a current diagnosis for this admission?: Yes (11) Coronary artery disease Qualifiers: Coronary Disease-Associated Artery/Lesion type: unspecified vessel or lesion type Is this a current diagnosis for this admission?: Yes (12) End stage renal disease Is this a current diagnosis for this admission?: Yes (13) Hypertension Qualifiers: Hypertension type: essential hypertension Qualified Code(s): I10 - Essential (primary) hypertension Is this a current diagnosis for this admission?: Yes - Time Time Spent with patient: 15-24 minutes Level of Care: IMCU Medications reviewed and adjusted accordingly: Yes Anticipated discharge: Other Within: Other - Plan Summary Plan Summary: Continues the current IV antibiotics discussed with the patient and the on the bedside
[2019-07-31] MEDS: GABAPENTIN 100 MG CAPSULE PO PRN (20:50)
--- NOTE | 2019-07-31 22:49 | Progress Note ---
Provider Note Provider Note: CARDIOLOGY PROGRESS NOTE by Dr. Shraddha Angel on 07/31/2019. OBJECTIVE: The patient denies any chest pain or discomfort. There is no shortness of breath. He does have pain in the right hand due to gangrene. There is no arrhythmia seen on the monitor. There is no TIA CVA symptoms. PHYSICAL EXAMINATION: General appearance: PRESENT: Appears to be chronically ill. He is in mild distress due to pain in his hands. Selected Entries 07/31/19 12:09 Temperature 98.6 F Temperature Oral Source Pulse Rate 60 Respiratory 16 Rate Blood Pressure 113/59 L Blood Pressure 77 Mean BP Location Right Arm BP Position Sitting O2 Sat by Pulse 98 Oximetry Oxygen Delivery Room Air Method Head exam: PRESENT: atraumatic, normocephalic Eye exam: PRESENT: conjunctiva pink, EOMI, PERRLA. ABSENT: scleral icterus Ear exam: PRESENT: normal external ear exam Mouth exam: PRESENT: moist, tongue midline Neck exam: PRESENT: full ROM. ABSENT: carotid bruit, JVD, lymphadenopathy, thyromegaly LUNGS: There is diminished air entry and prolonged expiration. There is no rhonchi rales or wheezing. Chest wall palpation shows a flail sternotomy incision. Cardiovascular exam: PRESENT: RRR. ABSENT: diastolic murmur, rubs, systolic murmur Vascular exam: There is dry gangrene of the fingers of the right hand. There is severely diminished femoral pulses. He has left and right BKA. GI/Abdominal exam: PRESENT: normal bowel sounds, soft. ABSENT: distended, guarding, mass, organolmegaly, rebound, tenderness Rectal exam: PRESENT: deferred Extremities exam: PRESENT: right and left BKA. ABSENT: pedal edema. There is cellulitis of the right hand with dry gangrene at the ends of all fingers of his right hand. Labs- All tests 24 hr 07/31/19 07/31/19 07/31/19 07:55 11:11 16:39 POC Glucose 101 109 108 07/31/19 21:13 POC Glucose 161 H Hand X-Ray 07/28/19 13:24 IMPRESSION: No plain film evidence for osteomyelitis. No acute fracture. Prior amputation 3rd ray on the left. Extensive vascular calcification. IMPRESSION/RECOMMENDATION: 1. Cellulitis and gangrene of fingers of the right hand. Continue IV antibiotics. 2. Ischemic cardia myopathy.: The patient was referred for AICD. But he has not cardia done as yet. 3. Coronary artery disease history of myocardial infarction. History of coronary bypass graft surgery. At present no anginal symptoms. Continue current medication. 4. Severe peripheral vascular disease. 5. Hypertension. 6. Diabetes mellitus with peripheral vascular disease and diabetic nephropathy. 7. End-stage renal disease on dialysis. 8. A past history of atrial fibrillation. At present patient is sinus rhythm. Continue current medication, 9. Right bundle branch block pattern. 10. Chronic obstructive pulmonary disease.: Stable no evidence of acute exacerbation. 11.Flail sternotomy wound healing. At present no chest wall pain Medications reviewed. Medical regimen and management plan discussed with attending patient on the case. Medical decision making hours of moderate complexity. 60 minutes spent as patient more than 50% of time spent direct patient care. Patient's cardiac condition is as stable as can be. Hence will sign off. Will see the patient again if there should be cardiac decompensation.
[2019-08-01] MEDS: ATORVASTATIN CALCIUM 40 MG TABLET PO SCH ×2 (00:01→22:46)
[2019-08-01] MEDS: CEFEPIME 1 GM/D5W RTU 1 GM/50 ML RTUPB IV SCH ×3 (00:01→22:47)
[2019-08-01] MEDS: INSULIN LISPRO 100 UNIT/ML 3 ML VIAL SUBCUT SCH ×5 (00:02→22:56)
[2019-08-01] MEDS: HEPARIN SOD (PORCINE) 5,000 UNIT/ML 1 ML VIAL SUBCUT SCH ×4 (00:02→21:42)
[2019-08-01] MEDS: ACETAMINOPHEN 325 MG TABLET PO PRN ×4 (00:57→17:41)
[2019-08-01] MEDS: OXYCODONE-ACETAMINOPHEN 5-325 MG TABLET PO PRN ×4 (00:57→17:42)
[2019-08-01] MEDS: CLINDAMYCIN 600 MG/D5W RTU 600 MG/50 ML RTUPB IV SCH ×3 (02:30→17:44)
[2019-08-01] MEDS ORDERED: EPOETIN ALFA-EPBX 2,000 UNIT, EPOETIN ALFA-EPBX 3,000 UNIT in SYRINGE, DISPOSABLE, 1 EACH IV PRN (05:00)
[2019-08-01] MEDS ORDERED: NORMAL SALINE 1000 ML 1,000 ML IV PRN (05:00)
[2019-08-01 05:23] LABS: ANION GAP 10 (5-19); BLOOD UREA NITROGEN 28 mg/dL (7-20); CALCIUM 9.1 mg/dL (8.4-10.2); CARBON DIOXIDE 27 mmol/L (22-30); CHLORIDE 96 mmol/L (98-107); GLUCOSE 111 mg/dL (75-110); POTASSIUM 4.7 mmol/L (3.6-5.0)
[2019-08-01 05:25] LABS: HEMATOCRIT 30.3 % (37.9-51.0); HEMOGLOBIN 9.8 g/dL (13.5-17.0); MEAN CORPUSCULAR HEMOGLOBIN 31.3 pg (27.0-33.4); MEAN CORPUSCULAR HGB CONC 32.3 g/dL (32.0-36.0); MEAN CORPUSCULAR VOLUME 97 fl (80-97); PLATELET COUNT 142 10^3/uL (150-450); RED BLOOD COUNT 3.13 10^6/uL (4.35-5.55); RED CELL DISTRIBUTION WIDTH 23.4 % (11.5-14.0); WHITE BLOOD COUNT 5.8 10^3/uL (4.0-10.5)
[2019-08-01 05:50] LABS: ABSOLUTE LYMPHOCYTES# (MANUAL) 1.1 10^3/uL (0.5-4.7); BAND NEUTROPHILS % (MANUAL) 3 % (3-5); BASOPHILS % (MANUAL) 3 % (0-2); EOSINOPHILS % (MANUAL) 4 % (0-6); LYMPHOCYTES % (MANUAL) 19 % (13-45); MONOCYTES % (MANUAL) 18 % (3-13); SEGMENTED NEUTROPHILS % (MAN) 53 % (42-78); TOTAL CELLS COUNTED 100
[2019-08-01 05:51] LABS: PLATELET COMMENT DECREASED
[2019-08-01 05:52] LABS: ANISOCYTOSIS 3+; OVALOCYTES SLIGHT
[2019-08-01 05:53] LABS: TEAR DROP CELLS SLIGHT
[2019-08-01 05:55] LABS: TARGET CELLS SLIGHT
--- NOTE | 2019-08-01 09:02 | PDOC PROGRESS REPORT ---
Subjective Progress Note for:: 08/01/19 Subjective:: Patient is currently doing well According to the nursing staff patient's took the patient out of the rooms outside without informing the nurses yesterday and according to the patient have a some fall but denied any injury Discussed with the patient and her did not go outside without informing the nurses Patient's other than that denied any other symptoms Reason For Visit: RT UPPER CELLULITIS Physical Exam Vital Signs: Temp Pulse Resp BP Pulse Ox 97.9 F 57 L 16 97/55 L 91 L 08/01/19 04:06 08/01/19 04:06 08/01/19 04:06 08/01/19 04:06 08/01/19 04:06 Intake & Output 07/31/19 08/01/19 08/02/19 06:59 06:59 06:59 Intake Total 920 670 Output Total 1999 Balance -1080 670 Weight 81.8 kg 81.9 kg General appearance: PRESENT: no acute distress Head exam: PRESENT: atraumatic, normocephalic Eye exam: PRESENT: conjunctiva pink, EOMI, PERRLA. ABSENT: scleral icterus Ear exam: PRESENT: normal external ear exam Mouth exam: PRESENT: moist, tongue midline Neck exam: PRESENT: full ROM. ABSENT: carotid bruit, JVD, lymphadenopathy, thyromegaly Respiratory exam: PRESENT: clear to auscultation john Cardiovascular exam: PRESENT: RRR. ABSENT: diastolic murmur, rubs, systolic murmur Vascular exam: PRESENT: normal capillary refill GI/Abdominal exam: PRESENT: normal bowel sounds, soft. ABSENT: distended, guarding, mass, organolmegaly, rebound, tenderness Rectal exam: PRESENT: deferred Additional comments: Right hand swelling is much improved Neurological exam: PRESENT: alert, awake, oriented to person, oriented to place, oriented to time, oriented to situation, CN II-XII grossly intact. ABSENT: motor sensory deficit Psychiatric exam: PRESENT: appropriate affect, normal mood. ABSENT: homicidal ideation, suicidal ideation Skin exam: PRESENT: dry, intact, warm. ABSENT: cyanosis, rash Results Laboratory Results: 08/01/19 04:38 08/01/19 04:38 08/01/19 08/01/19 04:38 04:38 WBC 5.8 RBC 3.13 L Hgb 9.8 L Hct 30.3 L MCV 97 MCH 31.3 MCHC 32.3 RDW 23.4 H Plt Count 142 L Seg Neutrophils % Not Reportable Sodium 133.1 L Potassium 4.7 Chloride 96 L Carbon Dioxide 27 Anion Gap 10 BUN 28 H Creatinine 6.41 H Est GFR ( Amer) 11 L Glucose 111 H Calcium 9.1 07/28/19 15:54 Blood Blood Culture (PCR) - Final Pseudomonas Aeruginosa Impressions: Hand X-Ray 07/28/19 13:24 IMPRESSION: No plain film evidence for osteomyelitis. No acute fracture. Prior amputation 3rd ray on the left. Extensive vascular calcification. Assessment & Plan - Diagnosis (1) Cellulitis of right wrist Is this a current diagnosis for this admission?: Yes (2) PVD (peripheral vascular disease) Is this a current diagnosis for this admission?: Yes (3) S/P bilateral BKA (below knee amputation) Is this a current diagnosis for this admission?: Yes (4) Status post amputation of finger of left hand Is this a current diagnosis for this admission?: Yes 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: Diabetes mellitus joint terminal attack controller insulin use: with joint terminal attack controller use Diabetes mellitus complication status: with circulatory complication Diabetes mellitus complication detail: with peripheral angiopathy with gangrene Qualified Code(s): E11.52 - Type 2 diabetes mellitus with diabetic peripheral angiopathy with gangrene; Z79.4 - joint terminal attack controller (current) use of insulin Is this a current diagnosis for this admission?: Yes (6) Anemia in chronic kidney disease (CKD) Qualifiers: Chronic kidney disease stage: on chronic dialysis Is this a current diagnosis for this admission?: Yes (7) Atrial fibrillation Qualifiers: Atrial fibrillation type: unspecified Qualified Code(s): I48.91 - Unspecified atrial fibrillation Is this a current diagnosis for this admission?: Yes (8) CAD (coronary artery disease) Qualifiers: Coronary Disease-Associated Artery/Lesion type: bypass graft Associated angina: without angina Is this a current diagnosis for this admission?: Yes (9) Chronic pain syndrome Is this a current diagnosis for this admission?: Yes (10) Congestive heart failure Qualifiers: Heart failure type: combined systolic and diastolic Heart failure chronicity: chronic Qualified Code(s): I50.42 - Chronic combined systolic (congestive) and diastolic (congestive) heart failure Is this a current diagnosis for this admission?: Yes (11) Coronary artery disease Qualifiers: Coronary Disease-Associated Artery/Lesion type: unspecified vessel or lesion type Is this a current diagnosis for this admission?: Yes (12) End stage renal disease Is this a current diagnosis for this admission?: Yes (13) Hypertension Qualifiers: Hypertension type: essential hypertension Qualified Code(s): I10 - Essential (primary) hypertension Is this a current diagnosis for this admission?: Yes - Time Time Spent with patient: 25-34 minutes Level of Care: IMCU Medications reviewed and adjusted accordingly: Yes Anticipated discharge: Home with Homehealth Within: Other - Plan Summary Plan Summary: We will repeat the blood culture will get the CT of the head because of unknown fall
--- NOTE | 2019-08-01 09:45 | PDOC PROGRESS REPORT ---
Subjective Progress Note for:: 08/01/19 Subjective:: I am seeing the patient during dialysis this morning. He is tolerating dialysis except for intermittent hypotension but overall he is tolerating dialysis well. He tells me that his right hand swelling and pain seems to be subsiding slowly. He does not have any other complaints otherwise. Reason For Visit: RT UPPER CELLULITIS Physical Exam Vital Signs: Temp Pulse Resp BP Pulse Ox 97.9 F 57 L 16 97/55 L 91 L 08/01/19 04:06 08/01/19 04:06 08/01/19 04:06 08/01/19 04:06 08/01/19 04:06 Intake & Output 07/31/19 08/01/19 08/02/19 06:59 06:59 06:59 Intake Total 920 670 Output Total 2000 Balance -1080 670 Weight 81.8 kg 81.9 kg Vitals during dialysis: Blood pressure 127/70, heart rate of 52, blood flow rate of 450 mL/min and dialysate flow rate of 800 mL/min. Exam: General appearance: PRESENT: no acute distress, cooperative, well-developed, well-nourished Head exam: PRESENT: atraumatic, normocephalic Eye exam: PRESENT: conjunctiva slightly pale, PERRLA. ABSENT: scleral icterus Neck exam: ABSENT: JVD Respiratory exam: PRESENT: Diminished breath sounds. ABSENT: crackles, rales, rhonchi, unlabored, wheezes Cardiovascular exam: PRESENT: Regular rate rhythm -+S1, +S2. ABSENT: diastolic murmur, systolic murmur GI/Abdominal exam: PRESENT: normal bowel sounds, soft. 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 Skin exam: PRESENT: dry, warm, Results Laboratory Results: 08/01/19 04:38 08/01/19 04:38 08/01/19 08/01/19 04:38 04:38 WBC 5.8 RBC 3.13 L Hgb 9.8 L Hct 30.3 L MCV 97 MCH 31.3 MCHC 32.3 RDW 23.4 H Plt Count 142 L Seg Neutrophils % Not Reportable Sodium 133.1 L Potassium 4.7 Chloride 96 L Carbon Dioxide 27 Anion Gap 10 BUN 28 H Creatinine 6.41 H Est GFR ( Amer) 11 L Glucose 111 H Calcium 9.1 07/28/19 15:54 Blood Blood Culture (PCR) - Final Pseudomonas Aeruginosa Impressions: Hand X-Ray 07/28/19 13:24 IMPRESSION: No plain film evidence for osteomyelitis. No acute fracture. Prior amputation 3rd ray on the left. Extensive vascular calcification. Assessment & Plan - Diagnosis (1) Cellulitis of right hand Is this a current diagnosis for this admission?: Yes Plan: One set of blood culture is growing Pseudomonas. Patient is currently receiving IV cefepime and IV clindamycin per Dr. Baez. Clinically slowly improving. (2) End stage renal disease Is this a current diagnosis for this admission?: Yes Plan: We will do dialysis today for 3 hours, using the patient's AV fistula, with 2 potassium bath, blood flow rate of 450 mL per minute, dialysate flow rate of 800 mL per minute, ultrafiltration 1 L as tolerated, no heparin and Procrit with 5000 units during dialysis intravenously. Patient is being continuously monitored throughout dialysis treatment. (3) PVD (peripheral vascular disease) Is this a current diagnosis for this admission?: Yes (4) Chronic kidney disease-mineral and bone disorder Is this a current diagnosis for this admission?: Yes Plan: History of chronic long-term noncompliance with phosphorus binders causing consistent and constant hyperphosphatemia which likely precipitates vascular calcifications all over his body. This most likely worsened the patient's peripheral vascular disease causing amputations. We will recheck patient's phosphorus and PTH levels. (5) Anemia in chronic kidney disease (CKD) Qualifiers: Chronic kidney disease stage: on chronic dialysis Qualified Code(s): N18.6 - End stage renal disease; D63.1 - Anemia in chronic kidney disease; Z99.2 - Dependence on renal dialysis Is this a current diagnosis for this admission?: Yes Plan: Patient to be given Retacrit during dialysis treatment. (6) Type 2 diabetes mellitus Qualifiers: Diabetes mellitus mcfp insulin use: with tank terminal gauger use Diabetes mellitus complication status: with circulatory complication Diabetes mellitus complication detail: with peripheral angiopathy with gangrene Qualified Code(s): E11.52 - Type 2 diabetes mellitus with diabetic peripheral angiopathy with gangrene; Z79.4 - assisted (current) use of insulin Is this a current diagnosis for this admission?: Yes (7) Hypertension Qualifiers: Hypertension type: essential hypertension Qualified Code(s): I10 - Essential (primary) hypertension Is this a current diagnosis for this admission?: Yes Plan: Controlled. - Time Time with patient: 15-25 minutes
[2019-08-01] MEDS: ASPIRIN 81 MG TABLET, ENT COATED PO SCH (11:06)
[2019-08-01] MEDS: DOCUSATE SODIUM 100 MG CAPSULE PO SCH ×2 (11:06→17:41)
[2019-08-01] MEDS: VITAMIN B COMPLEX TABLET PO SCH (11:07)
[2019-08-01] MEDS: CLOPIDOGREL BISULFATE 75 MG TABLET PO SCH (11:07)
[2019-08-01] MEDS: MIDODRINE HCL 5 MG TABLET PO SCH ×3 (11:07→17:41)
[2019-08-01] MEDS: GABAPENTIN 100 MG CAPSULE PO PRN (22:51)
[2019-08-02] MEDS: CLINDAMYCIN 600 MG/D5W RTU 600 MG/50 ML RTUPB IV SCH (02:52)
[2019-08-02] MEDS: HEPARIN SOD (PORCINE) 5,000 UNIT/ML 1 ML VIAL SUBCUT SCH ×3 (05:05→23:14)
[2019-08-02 06:32] LABS: HEMOGLOBIN 9.6 g/dL (13.5-17.0); MEAN CORPUSCULAR HEMOGLOBIN 30.9 pg (27.0-33.4); MEAN CORPUSCULAR HGB CONC 31.8 g/dL (32.0-36.0); MEAN CORPUSCULAR VOLUME 97 fl (80-97); PLATELET COUNT 128 10^3/uL (150-450); RED BLOOD COUNT 3.09 10^6/uL (4.35-5.55); RED CELL DISTRIBUTION WIDTH 23.4 % (11.5-14.0); WHITE BLOOD COUNT 5.6 10^3/uL (4.0-10.5)
[2019-08-02 06:50] LABS: ANION GAP 12 (5-19); BLOOD UREA NITROGEN 23 mg/dL (7-20); CALCIUM 8.8 mg/dL (8.4-10.2); CARBON DIOXIDE 27 mmol/L (22-30); CHLORIDE 97 mmol/L (98-107); GLUCOSE 108 mg/dL (75-110); POTASSIUM 4.2 mmol/L (3.6-5.0)
[2019-08-02 06:51] LABS: ABSOLUTE LYMPHOCYTES# (MANUAL) 0.3 10^3/uL (0.5-4.7); BAND NEUTROPHILS % (MANUAL) 2 % (3-5); BASOPHILS % (MANUAL) 0 % (0-2); EOSINOPHILS % (MANUAL) 3 % (0-6); LYMPHOCYTES % (MANUAL) 5 % (13-45); MONOCYTES % (MANUAL) 18 % (3-13); SEGMENTED NEUTROPHILS % (MAN) 72 % (42-78); TOTAL CELLS COUNTED 100
[2019-08-02 06:55] LABS: ANISOCYTOSIS 3+; OVALOCYTES SLIGHT; POIKILOCYTOSIS 1+; TARGET CELLS SLIGHT; TEAR DROP CELLS SLIGHT
[2019-08-02 06:56] LABS: PLATELET COMMENT DECREASED
--- NOTE | 2019-08-02 09:14 | PDOC PROGRESS REPORT ---
Subjective Progress Note for:: 08/02/19 Subjective:: Patient is currently doing well Is denied any chest pain no short of breath Patient's hand swelling is much better Reason For Visit: RT UPPER CELLULITIS Physical Exam Vital Signs: Temp Pulse Resp BP Pulse Ox 97.6 F 53 L 20 95/44 L 100 08/02/19 08:13 08/02/19 08:13 08/02/19 08:13 08/02/19 08:13 08/02/19 08:13 Intake & Output 08/01/19 08/02/19 08/03/19 06:59 06:59 06:59 Intake Total 670 450 Output Total 1344 Balance 670 -894 Weight 81.9 kg General appearance: PRESENT: no acute distress, well-developed, well-nourished Head exam: PRESENT: atraumatic, normocephalic Eye exam: PRESENT: conjunctiva pink, EOMI, PERRLA. ABSENT: scleral icterus Ear exam: PRESENT: normal external ear exam Mouth exam: PRESENT: moist, tongue midline Neck exam: PRESENT: full ROM. ABSENT: carotid bruit, JVD, lymphadenopathy, thyromegaly Respiratory exam: PRESENT: clear to auscultation john Cardiovascular exam: PRESENT: RRR. ABSENT: diastolic murmur, rubs, systolic murmur Vascular exam: PRESENT: normal capillary refill GI/Abdominal exam: PRESENT: normal bowel sounds, soft. ABSENT: distended, guarding, mass, organolmegaly, rebound, tenderness Rectal exam: PRESENT: deferred Additional comments: Right hand swelling and redness is much improved Neurological exam: PRESENT: alert, awake, oriented to person, oriented to place, oriented to time, oriented to situation, CN II-XII grossly intact. ABSENT: motor sensory deficit Psychiatric exam: PRESENT: appropriate affect, normal mood. ABSENT: homicidal ideation, suicidal ideation Skin exam: PRESENT: dry, intact, warm. ABSENT: cyanosis, rash Results Laboratory Results: 08/02/19 05:32 08/02/19 05:32 08/01/19 08/01/19 08/02/19 09:50 14:45 05:32 WBC 5.6 RBC 3.09 L Hgb 9.6 L Hct 30.0 L MCV 97 MCH 30.9 MCHC 31.8 L RDW 23.4 H Plt Count 128 L Seg Neutrophils % Not Reportable Sodium Potassium Chloride Carbon Dioxide Anion Gap BUN Creatinine Est GFR ( Amer) Glucose Calcium Phosphorus 6.2 H PTH Intact 97.7 H 08/02/19 05:32 WBC RBC Hgb Hct MCV MCH MCHC RDW Plt Count Seg Neutrophils % Sodium 135.8 L Potassium 4.2 Chloride 97 L Carbon Dioxide 27 Anion Gap 12 BUN 23 H Creatinine 5.08 H Est GFR ( Amer) 14 L Glucose 108 Calcium 8.8 Phosphorus PTH Intact 07/28/19 15:54 Blood Blood Culture (PCR) - Final Pseudomonas Aeruginosa 07/28/19 15:54 Blood Blood Culture - Final Pseudomonas Aeruginosa Impressions: Hand X-Ray 07/28/19 13:24 IMPRESSION: No plain film evidence for osteomyelitis. No acute fracture. Prior amputation 3rd ray on the left. Extensive vascular calcification. Assessment & Plan - Diagnosis (1) Cellulitis of right wrist Is this a current diagnosis for this admission?: Yes Plan: Currently all improving will switch to the p.o. 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: with residential use Diabetes mellitus complication status: with circulatory complication Diabetes mellitus complication detail: with peripheral angiopathy with gangrene Qualified Code(s): E11.52 - Type 2 diabetes mellitus with diabetic peripheral angiopathy with gangrene; Z79.4 - longterm (current) use of insulin Is this a current diagnosis for this admission?: Yes (6) Anemia in chronic kidney disease (CKD) Qualifiers: Chronic kidney disease stage: on chronic dialysis Qualified Code(s): N18.6 - End stage renal disease; D63.1 - Anemia in chronic kidney disease; Z99.2 - Dependence on renal dialysis Is this a current diagnosis for this admission?: Yes (7) Atrial fibrillation Qualifiers: Atrial fibrillation type: unspecified Qualified Code(s): I48.91 - Unspecified atrial fibrillation Is this a current diagnosis for this admission?: Yes (8) CAD (coronary artery disease) Qualifiers: Coronary Disease-Associated Artery/Lesion type: bypass graft Associated angina: without angina Is this a current diagnosis for this admission?: Yes (9) Chronic pain syndrome Is this a current diagnosis for this admission?: Yes (10) Congestive heart failure Qualifiers: Heart failure type: combined systolic and diastolic Heart failure chronicity: chronic Qualified Code(s): I50.42 - Chronic combined systolic (congestive) and diastolic (congestive) heart failure Is this a current diagnosis for this admission?: Yes (11) Coronary artery disease Qualifiers: Coronary Disease-Associated Artery/Lesion type: unspecified vessel or lesion type Is this a current diagnosis for this admission?: Yes (12) End stage renal disease Is this a current diagnosis for this admission?: Yes (13) Hypertension Qualifiers: Hypertension type: essential hypertension Qualified Code(s): I10 - Essential (primary) hypertension Is this a current diagnosis for this admission?: Yes - Time Time Spent with patient: 15-24 minutes Level of Care: IMCU Medications reviewed and adjusted accordingly: Yes Anticipated discharge: Home with Homehealth Within: within 24 hours - Plan Summary Plan Summary: We will switch to the IV to the p.o. antibiotics
[2019-08-02] MEDS: INSULIN LISPRO 100 UNIT/ML 3 ML VIAL SUBCUT SCH ×4 (09:31→23:15)
[2019-08-02] MEDS: CLOPIDOGREL BISULFATE 75 MG TABLET PO SCH (09:33)
[2019-08-02] MEDS: ASPIRIN 81 MG TABLET, ENT COATED PO SCH (09:33)
[2019-08-02] MEDS: VITAMIN B COMPLEX TABLET PO SCH (09:34)
[2019-08-02] MEDS: DOCUSATE SODIUM 100 MG CAPSULE PO SCH ×2 (09:34→17:28)
[2019-08-02] MEDS: MIDODRINE HCL 5 MG TABLET PO SCH ×3 (09:34→17:28)
--- NOTE | 2019-08-02 09:34 | RADIOLOGY REPORT (SQ) ---
EXAM DESCRIPTION: CT HEAD WITHOUT COMPLETED DATE/TIME: 08/02/2019 8:45 am REASON FOR STUDY: fall COMPARISON: CT of the head without contrast from 03/12/2019. TECHNIQUE: Axial images acquired through the brain without intravenous contrast. Images reviewed wi th bone, brain and subdural windows. Additional sagittal and coronal reconstructions were generated. Images stored on PACS. All CT scanners at this facility use dose modulation, iterative reconstruction, and/or weight based d osing when appropriate to reduce radiation dose to as low as reasonably achievable (ALARA). [facility]: Dose Right [facility]: CareDose [facility]: Dose Right [facility]: Teradose 4D [facility]: Via RADIATION DOSE: CT Rad equipment meets quality standard of care and radiation dose reduction techniq ues were employed. CTDIvol: 48.7 mGy. DLP: 930 mGy-cm. LIMITATIONS: None. FINDINGS: The confluent areas of hypoattenuation within the supratentorial periventricular and subco rtical white matter could represent the sequela of chronic microvascular ischemia. There is no acute intracranial hemorrhage, vascular territorial infarct, extra-axial fluid collection , mass effect or midline shift. There is no effacement of the cerebral sulci or basal subarachnoid c isterns. The bradley-white matter differentiation is preserved. The caliber the ventricles is concordant with the degree of sulcation. The mucosal lining of the maxillary and sphenoid sinuses is thickened. There is no paranasal sinus a ir-fluid level. The globes are if a cake. The orbits are intact. There is no fracture of the calvarium. The extensive atherosclerotic calcification of the vasculature is suggestive of diabetes mellitus. IMPRESSION: No acute intracranial abnormality. EVIDENCE OF ACUTE STROKE: NO. COMMENT: Quality ID # [id number]: Final reports with documentation of one or more dose reduction techniques (e.g., Automated exposure control, adjustment of the mA and/or kV according to patient size, use of iterative reconstruction technique) TECHNICAL DOCUMENTATION: JOB ID: [id number] 2010 [facility]- All Rights Reserved Reading location - IP/workstation name: [email or web address]
[2019-08-02] MEDS: ACETAMINOPHEN 325 MG TABLET PO PRN (09:39)
[2019-08-02] MEDS: OXYCODONE-ACETAMINOPHEN 5-325 MG TABLET PO PRN ×2 (09:39→17:27)
[2019-08-02] MEDS: CIPROFLOXACIN HCL 500 MG TABLET PO SCH ×2 (10:51→21:37)
[2019-08-02] MEDS: CLINDAMYCIN HCL 150 MG CAPSULE PO SCH ×2 (13:21→21:38)
[2019-08-02] MEDS: GABAPENTIN 100 MG CAPSULE PO PRN (21:37)
[2019-08-02] MEDS: ATORVASTATIN CALCIUM 40 MG TABLET PO SCH (23:15)
[2019-08-03] MEDS ORDERED: MORPHINE SULFATE 10 MG/ML INJ ONE (02:15)
[2019-08-03] MEDS ORDERED: HYDROMORPHONE HCL INJ/PF 2 MG/ML AMPULE ONE ×2 (02:23→06:31)
[2019-08-03] MEDS ORDERED: EPOETIN ALFA-EPBX 10,000 UNIT in SYRINGE, DISPOSABLE, 1 EACH IV PRN (05:00)
[2019-08-03] MEDS ORDERED: NORMAL SALINE 1000 ML 1,000 ML IV PRN (05:00)
[2019-08-03] MEDS: HEPARIN SOD (PORCINE) 5,000 UNIT/ML 1 ML VIAL SUBCUT SCH ×3 (06:05→21:17)
[2019-08-03] MEDS: CLINDAMYCIN HCL 150 MG CAPSULE PO SCH (06:07)
[2019-08-03 06:36] LABS: ABSOLUTE BASOPHILS # (AUTO) 0.1 10^3/uL (0.0-0.2); ABSOLUTE EOSINOPHILS # (AUTO) 0.3 10^3/uL (0.0-0.6); ABSOLUTE LYMPHOCYTES (AUTO) 0.5 10^3/uL (0.5-4.7); ABSOLUTE MONOCYTES (AUTO) 0.6 10^3/uL (0.1-1.4); ABSOLUTE NEUT (AUTO) 4.2 10^3/uL (1.7-8.2); EOSINOPHILS % (AUTO) 5.7 % (0-6); HEMATOCRIT 31.6 % (37.9-51.0); LYMPHOCYTES % (AUTO) 8.8 % (13-45); MEAN CORPUSCULAR HEMOGLOBIN 30.8 pg (27.0-33.4); MEAN CORPUSCULAR HGB CONC 31.5 g/dL (32.0-36.0); MEAN CORPUSCULAR VOLUME 98 fl (80-97); PLATELET COUNT 149 10^3/uL (150-450); RED BLOOD COUNT 3.24 10^6/uL (4.35-5.55); RED CELL DISTRIBUTION WIDTH 23.6 % (11.5-14.0); SEGMENTED NEUTROPHILS % (AUTO) 74.5 % (42-78); TOTAL CELLS COUNTED % (AUTO) 100 %; WHITE BLOOD COUNT 5.6 10^3/uL (4.0-10.5)
[2019-08-03 06:56] LABS: ANION GAP 11 (5-19); BLOOD UREA NITROGEN 29 mg/dL (7-20); CALCIUM 8.9 mg/dL (8.4-10.2); CARBON DIOXIDE 27 mmol/L (22-30); CHLORIDE 97 mmol/L (98-107); GLUCOSE 101 mg/dL (75-110); POTASSIUM 4.7 mmol/L (3.6-5.0)
[2019-08-03] MEDS ORDERED: NALOXONE HCL INJ/PF 0.4 MG/1 ML SDV ONE (07:07)
[2019-08-03] MEDS ORDERED: NALOXONE HCL INJ/PF 0.4 MG/1 ML SDV IV PRN (07:32)
[2019-08-03] MEDS: INSULIN LISPRO 100 UNIT/ML 3 ML VIAL SUBCUT SCH ×4 (08:21→21:18)
--- NOTE | 2019-08-03 09:41 | PDOC PROGRESS REPORT ---
Subjective Progress Note for:: 08/03/19 Reason For Visit: RT UPPER CELLULITIS Patient was not feeling well complaining of allover body pain attended by the hospitalist service last night and the suggested patients probably need a Dilaudid because of the pain and thought may be a withdrawal from the pain medications patient received the Dilaudid feel better but again this morning patient was very sleepy on the dialysis requiring Narcan patient is back to the alert awake oriented Very extensive discussed with the patient and the on the bedside and the dialysis with the dialysis nursing staff regarding the patient overall condition is very poor patients have a significant gangrene in the both upper extremities significant peripheral vascular disease significant cardiovascular disease overall prognosis is very poor with this chronic pain Patient unable to handle the Dilaudid because that makes more sleepy I think patient should continues the oxy currently follow with the pain managementDr. Smith's office And home medications have Dilaudid 4 mg every 6 hour but I think we did not give with this medicines because patients make them sleepy And have a CT of the head done yesterday was negative for any acute findings Patient having no fever no chills no sign of sepsis Discussed with the nephrology today's regarding the patient's current episodes and conditions Patient has been evaluated in a several hospital including the [facility] regarding ongoing problems with this digit issues with a gangrene patient seen the local surgery here in the wound care clinic here Again the discussed with the and the patient With the poor prognosisAnd a CODE STATUS and the will talk to him and make decisions Physical Exam Vital Signs: Temp Pulse Resp BP Pulse Ox 97.8 F 56 L 20 116/52 L 98 08/02/19 20:14 08/03/19 02:00 08/02/19 20:14 08/02/19 20:14 08/02/19 20:14 Intake & Output 08/02/19 08/03/19 08/04/19 06:59 06:59 06:59 Intake Total 450 860 Output Total 1344 Balance -894 860 Weight 82 kg General appearance: PRESENT: no acute distress Head exam: PRESENT: atraumatic, normocephalic Eye exam: PRESENT: conjunctiva pink, EOMI, PERRLA. ABSENT: scleral icterus Ear exam: PRESENT: normal external ear exam Mouth exam: PRESENT: moist, tongue midline Neck exam: PRESENT: full ROM. ABSENT: carotid bruit, JVD, lymphadenopathy, thyromegaly Respiratory exam: PRESENT: clear to auscultation john Cardiovascular exam: PRESENT: RRR. ABSENT: diastolic murmur, rubs, systolic murmur Vascular exam: PRESENT: normal capillary refill GI/Abdominal exam: PRESENT: normal bowel sounds, soft. ABSENT: distended, guarding, mass, organolmegaly, rebound, tenderness Rectal exam: PRESENT: deferred Extremities exam: PRESENT: left BKA, right BKA Additional comments: Right hand the swelling and the redness is all improving patient have a significant dry gangrene on the both upper extremities disease Neurological exam: PRESENT: alert, awake, oriented to person, oriented to place, oriented to time, oriented to situation, CN II-XII grossly intact. ABSENT: motor sensory deficit Psychiatric exam: PRESENT: appropriate affect, normal mood. ABSENT: homicidal ideation, suicidal ideation Skin exam: PRESENT: dry, intact, warm. ABSENT: cyanosis, rash Results Laboratory Results: 08/03/19 05:24 08/03/19 05:24 08/03/19 08/03/19 05:24 05:24 WBC 5.6 RBC 3.24 L Hgb 10.0 L Hct 31.6 L MCV 98 H MCH 30.8 MCHC 31.5 L RDW 23.6 H Plt Count 149 L Seg Neutrophils % 74.5 Sodium 134.6 L Potassium 4.7 Chloride 97 L Carbon Dioxide 27 Anion Gap 11 BUN 29 H Creatinine 6.30 H Est GFR ( Amer) 11 L Glucose 101 Calcium 8.9 07/28/19 14:11 Blood Blood Culture - Final NO GROWTH IN 5 DAYS Impressions: Hand X-Ray 07/28/19 13:24 IMPRESSION: No plain film evidence for osteomyelitis. No acute fracture. Prior amputation 3rd ray on the left. Extensive vascular calcification. Head CT 08/02/19 08:00 IMPRESSION: No acute intracranial abnormality. EVIDENCE OF ACUTE STROKE: NO. 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 jail use Diabetes mellitus complication status: with circulatory complication Diabetes mellitus complication detail: with peripheral angiopathy with gangrene Qualified Cod e(s): E11.52 - Type 2 diabetes mellitus with diabetic peripheral angiopathy with gangrene; Z79.4 - halfway (current) use of insulin Is this a current diagnosis for this admission?: Yes (6) Anemia in chronic kidney disease (CKD) Qualifiers: Chronic kidney disease stage: on chronic dialysis Qualified Code(s): N18.6 - End stage renal disease; D63.1 - Anemia in chronic kidney disease; Z99.2 - Dependence on renal dialysis Is this a current diagnosis for this admission?: Yes (7) Atrial fibrillation Qualifiers: Atrial fibrillation type: unspecified Qualified Code(s): I48.91 - Unspecif ied atrial fibrillation Is this a current diagnosis for this admission?: Yes (8) CAD (coronary artery disease) Qualifiers: Coronary Disease-Associated Artery/Lesion type: bypass graft Associated angina: without angina Is this a current diagnosis for this admission?: Yes (9) Chronic pain syndrome Is this a current diagnosis for this admission?: Yes Plan: We consult the pain management to further evaluate while patient see the [facility] pain management (10) Congestive heart failure Qualifiers: Heart failure type: combined systolic and diastolic Heart failure chronicity: chronic Qualified Code(s): I50.42 - Chronic combined systolic (congestive) and diastolic (congestive) heart failure Is this a current diagnosis for this admission?: Yes (11) Coronary artery disease Qualifiers: Coronary Disease-Associated Artery/Lesion type: unspecified vessel or lesion type Is this a current diagnosis for this admission?: Yes Plan: We will get the twelve-lead EKG patient is currently seeing Dr. WATKINS (12) End stage renal disease Is this a current diagnosis for this admission?: Yes Plan: Currently on hemodialysis (13) Hypertension Qualifiers: Hypertension type: essential hypertension Qualified Code(s): I10 - Essential (primary) hypertension Is this a current diagnosis for this admission?: Yes - Time Time Spent with patient: 35 or more minutes Level of Care: IMCU Medications reviewed and adjusted accordingly: Yes Anticipated discharge: Other Within: Other - Plan Summary Plan Summary: Very extensive discussions with the patient and her regarding the patient's current conditions with overall with the multiple comorbidity poor prognosis patient has been evaluated in the several hospitals at this point I think I will continue to monitor the patient's Try to avoid the stronger pain medications Consult the palliative care services
[2019-08-03] MEDS: DOCUSATE SODIUM 100 MG CAPSULE PO SCH ×2 (11:50→17:49)
[2019-08-03] MEDS: CLOPIDOGREL BISULFATE 75 MG TABLET PO SCH (11:50)
[2019-08-03] MEDS: MIDODRINE HCL 5 MG TABLET PO SCH ×3 (11:50→17:49)
[2019-08-03] MEDS: ASPIRIN 81 MG TABLET, ENT COATED PO SCH (11:50)
[2019-08-03] MEDS: VITAMIN B COMPLEX TABLET PO SCH (11:50)
[2019-08-03] MEDS: CIPROFLOXACIN HCL 500 MG TABLET PO SCH (12:21)
--- NOTE | 2019-08-03 13:18 | PDOC PROGRESS REPORT ---
Subjective Progress Note for:: 08/03/19 Subjective:: I am seeing the patient during dialysis treatment this morning. Patient was initially sleeping but pretty much arousable. I have spoken to Dr. Baez this morning as well. He related to me what happened overnight and early this morning as well as my dialysis nurse. Apparently the patient has been complaining of body aches and generalized pain so he was given Dilaudid IV this morning. He was so lethargic and unresponsive and so our dialysis nurse called [facility] and he was given Narcan. He woke up after that. Dr. Baez has extensive discussion with the patient and his regarding his poor clinical condition and poor prognosis. He also discussed the patient cannot have Dilaudid anymore and that he is to continue the medication being given by his pain management doctor. So currently the patient is tolerating dialysis and he he is hemodynamically stable. He is awake and answering questions appropriately and coherently. I again spoke with the patient and his regarding his clinical condition as Dr. Baez has discussed earlier this morning. Basically he has poor prognosis with extensive peripheral vascular disease and dry gangrene on his fingers in both hands, worse on the right than the left. He was evaluated by surgery here in our surgical recommendation or intervention was recommended. Patient has also been following up with other surgeons apparently in [place] in [place]. And most recently the patient went to [facility] who considered the option of right hand amputation but since the patient does not have all his doctors over there they were not able to help him as well. I talked with the patient and regarding CODE STATUS and the patient continues to confirm that he wants to be a full code. I also talked to the patient and regarding possibility of comfort care and hospice since we cannot really fix his severe vascular disease and his pain is most likely get a get worse than better moving forward. The patient does not seem to be open to that idea. The seems to be just going along with what the patient wants and does not really express her opinion about planning regarding his condition. Patient indicates that until God tells him that is his time that he is going to continue on with current treatments. Reason For Visit: RT UPPER CELLULITIS Physical Exam Vital Signs: Temp Pulse Resp BP Pulse Ox 97.8 F 56 L 20 116/52 L 98 08/02/19 20:14 08/03/19 02:00 08/02/19 20:14 08/02/19 20:14 08/02/19 20:14 Intake & Output 08/02/19 08/03/19 08/04/19 06:59 06:59 06:59 Intake Total 450 860 Output Total 1344 Balance -894 860 Weight 82 kg Vitals during dialysis: Blood pressure 169/45, pulse rate of 54, blood flow rate of 400 mL/min and dialysate flow rate of 800 mL/min. Exam: General appearance: PRESENT: no acute distress, cooperative, well-developed, well-nourished Head exam: PRESENT: atraumatic, normocephalic Eye exam: PRESENT: conjunctiva pale PERRLA. ABSENT: scleral icterus Neck exam: ABSENT: JVD Respiratory exam: PRESENT: Normal breath sounds. ABSENT: crackles, rales, rhonchi, unlabored, wheezes Cardiovascular exam: PRESENT: Regular rate rhythm -+S1, +S2. ABSENT: diastolic murmur, systolic murmur GI/Abdominal exam: PRESENT: normal bowel sounds, soft. ABSENT: guarding, mass, tenderness Extremities exam: Right hand swelling is improving. Unchanged necrotic dry gangrene of his fingers in both hands but worse than the right. Neurological exam: PRESENT: alert, awake, oriented to person, place and time. Skin exam: PRESENT: dry, warm, Results Laboratory Results: 08/03/19 05:24 08/03/19 05:24 08/03/19 08/03/19 05:24 05:24 WBC 5.6 RBC 3.24 L Hgb 10.0 L Hct 31.6 L MCV 98 H MCH 30.8 MCHC 31.5 L RDW 23.6 H Plt Count 149 L Seg Neutrophils % 74.5 Sodium 134.6 L Potassium 4.7 Chloride 97 L Carbon Dioxide 27 Anion Gap 11 BUN 29 H Creatinine 6.30 H Est GFR ( Amer) 11 L Glucose 101 Calcium 8.9 07/28/19 14:11 Blood Blood Culture - Final NO GROWTH IN 5 DAYS Impressions: Hand X-Ray 07/28/19 13:24 IMPRESSION: No plain film evidence for osteomyelitis. No acute fracture. Prior amputation 3rd ray on the left. Extensive vascular calcification. Head CT 08/02/19 08:00 IMPRESSION: No acute intracranial abnormality. EVIDENCE OF ACUTE STROKE: NO. Assessment & Plan - Diagnosis (1) Cellulitis of right hand Is this a current diagnosis for this admission?: Yes Plan: One set of blood culture is growing Pseudomonas. Dr. Baez is giving the mesfin ent ciprofloxacin. I will add Ancef 1 g postdialysis and if the patient gets discharged we can continue with this postdialysis as an outpatient. Clinically it is improved from admission. (2) End stage renal disease Is this a current diagnosis for this admission?: Yes Plan: We will do dialysis today for 3 hours, using the patient's AV fistula, with 2 potassium bath, blood flow rate of 400 mL per minute, dialysate flow rate of 800 mL per minute, ultrafiltration 1 to 1.5 L as tolerated, no heparin and Procrit with 10,000 units during dialysis intravenously. Patient will be monitored throughout dialysis treatment. Mental status will also be monitored due to episode this morning. is at bedside. (3) PVD (peripheral vascular disease) Is this a current diagnosis for this admission?: Yes (4) Chronic kidney disease-mineral and bone disorder Is this a current diagnosis for this admission?: Yes Plan: History of chronic long-term noncompliance with phosphorus binders causing consistent and constant hyperphosphatemia which likely precipitates vascular calcifications all over his body. This most likely worsened the patient's peripheral vascular disease causing amputations. Phosphorus is 6.2 and PTH is 97.7. I will start his Renagel 800 mg 2 tabs with meals. (5) Anemia in chronic kidney disease (CKD) Qualifiers: Chronic kidney disease stage: on chronic dialysis Qualified Code(s): N18.6 - End stage renal disease; D63.1 - Anemia in chronic kidney disease; Z99.2 - Dependence on renal dialysis Is this a current diagnosis for this admission?: Yes Plan: Patient to be given Retacrit during dialysis treatment. (6) Type 2 diabetes mellitus Qualifiers: Diabetes mellitus terminal make up operator insulin use: with terminal make up operator use Diabetes mellitus complication status: with circulatory complication Diabetes mellitus complication detail: with peripheral angiopathy with gangrene Qualified Code(s): E11.52 - Type 2 diabetes mellitus with diabetic peripheral angiopathy w ith gangrene; Z79.4 - detention (current) use of insulin Is this a current diagnosis for this admission?: Yes (7) Hypertension Qualifiers: Hypertension type: essential hypertension Qualified Code(s): I10 - Essential (primary) hypertension Is this a current diagnosis for this admission?: Yes Plan: Controlled. - Time Time with patient: Greater than 35 minutes
[2019-08-03] MEDS: OXYCODONE HCL IR 5 MG TABLET PO PRN (13:21)
[2019-08-03] MEDS: SEVELAMER HCL 800 MG TABLET PO SCH (17:49)
[2019-08-03] MEDS ORDERED: CEFAZOLIN 1 GM/D5W RTU 1 GM/50 ML RTUPB IV SCH (18:00)
[2019-08-03] MEDS: OXYCODONE-ACETAMINOPHEN 5-325 MG TABLET PO PRN ×2 (18:46→23:20)
[2019-08-03] MEDS: ATORVASTATIN CALCIUM 40 MG TABLET PO SCH (21:18)
[2019-08-03] MEDS: ACETAMINOPHEN 325 MG TABLET PO PRN (23:24)
[2019-08-04 05:25] LABS: HEMATOCRIT 29.9 % (37.9-51.0); HEMOGLOBIN 9.5 g/dL (13.5-17.0); MEAN CORPUSCULAR HEMOGLOBIN 30.9 pg (27.0-33.4); MEAN CORPUSCULAR HGB CONC 31.8 g/dL (32.0-36.0); MEAN CORPUSCULAR VOLUME 97 fl (80-97); PLATELET COUNT 129 10^3/uL (150-450); RED BLOOD COUNT 3.07 10^6/uL (4.35-5.55); RED CELL DISTRIBUTION WIDTH 23.8 % (11.5-14.0); WHITE BLOOD COUNT 4.4 10^3/uL (4.0-10.5)
[2019-08-04] MEDS: HEPARIN SOD (PORCINE) 5,000 UNIT/ML 1 ML VIAL SUBCUT SCH ×2 (05:34→14:30)
[2019-08-04 05:36] LABS: ANION GAP 10 (5-19); BLOOD UREA NITROGEN 19 mg/dL (7-20); CALCIUM 8.9 mg/dL (8.4-10.2); CARBON DIOXIDE 29 mmol/L (22-30); CHLORIDE 97 mmol/L (98-107); GLUCOSE 104 mg/dL (75-110); POTASSIUM 4.3 mmol/L (3.6-5.0)
[2019-08-04 05:58] LABS: ABSOLUTE LYMPHOCYTES# (MANUAL) 0.4 10^3/uL (0.5-4.7); ABSOLUTE MONOCYTES # (MANUAL) 0.6 10^3/uL (0.1-1.4); BASOPHILS % (MANUAL) 0 % (0-2); EOSINOPHILS % (MANUAL) 7 % (0-6); LYMPHOCYTES % (MANUAL) 8 % (13-45); MONOCYTES % (MANUAL) 14 % (3-13); SEGMENTED NEUTROPHILS % (MAN) 71 % (42-78); TOTAL CELLS COUNTED 100
[2019-08-04 05:59] LABS: ANISOCYTOSIS 3+; PLATELET COMMENT DECREASED; POIKILOCYTOSIS 1+; TARGET CELLS 1+; TOXIC VACUOLATION PRESENT
[2019-08-04] MEDS: INSULIN LISPRO 100 UNIT/ML 3 ML VIAL SUBCUT SCH ×2 (08:05→12:00)
[2019-08-04] MEDS: SEVELAMER HCL 800 MG TABLET PO SCH ×2 (08:10→12:00)
[2019-08-04] MEDS: MIDODRINE HCL 5 MG TABLET PO SCH ×2 (09:48→14:30)
[2019-08-04] MEDS: VITAMIN B COMPLEX TABLET PO SCH (09:48)
[2019-08-04] MEDS: DOCUSATE SODIUM 100 MG CAPSULE PO SCH (09:48)
[2019-08-04] MEDS: ASPIRIN 81 MG TABLET, ENT COATED PO SCH (09:48)
[2019-08-04] MEDS: CLOPIDOGREL BISULFATE 75 MG TABLET PO SCH (09:48)
[2019-08-04 14:33] VITALS: BP 115/61
--- NOTE | 2019-08-04 17:13 | PDOC DISCHARGE SUMMARY ---
Impression - Admit/DC Date/PCP Admission Date/Primary Care Provider: 07/28/19 17:13 FEI ZULETA MD Discharge Date: 08/04/19 - Discharge Diagnosis (1) Cellulitis of right hand Is this a current diagnosis for this admission?: Yes (2) End-stage renal disease needing dialysis Is this a current diagnosis for this admission?: Yes (3) Calciphylaxis cutis Is this a current diagnosis for this admission?: Yes (4) S/P bilateral BKA (below knee amputation) Is this a current diagnosis for this admission?: Yes (5) Type 2 diabetes mellitus Is this a current diagnosis for this admission?: Yes - Additional Information Resuscitation Status: Full Code Discharge Diet: As Tolerated Discharge Activity: Activity As Tolerated Referrals: FEI ZULETA MD [Primary Care Provider] - 08/09/19 11:45 am Prescriptions: Cefuroxime Axetil [Ceftin 250 mg Tablet] 1 tab PO BID #20 tablet Home Medications: Aspirin [Adult Low Dose Aspirin EC] 81 mg PO DAILY 03/12/19 Atorvastatin Calcium [Lipitor 40 mg Tablet] 40 mg PO QHS 03/12/19 Clopidogrel Bisulfate [Plavix 75 mg Tablet] 75 mg PO DAILY 03/12/19 Gabapentin [Neurontin 100 mg Capsule] 100 mg PO Q12HP PRN 03/12/19 Midodrine HCl 5 mg PO TID 03/12/19 Folic Acid/Vit Bcomp,C/Cu/Zinc [Folbee Plus Cz Tablet] 1 each PO DAILY 07/12/19 Hydromorphone HCl [Dilaudid] 4 mg PO QIDP PRN 07/29/19 Oxycodone HCl [Roxicodone] 15 mg PO Q6HP PRN 07/29/19 Cefuroxime Axetil [Ceftin 250 mg Tablet] 1 tab PO BID #20 tablet 08/03/19 History of Present Illiness History of Present Illness: CHAPITO LESLIE is a 64 year old male with a significant history of the end- stage renal disease on hemodialysis history of the type 2 diabetes with multiple complications including the chronic kidney disease peripheral vascular disease history of the significant coronary artery disease status post bypass and multiple other comorbidities amputations of both lower extremity also see vascular surgery at [facility] for ongoing Patients came to the emergency department with a complaint of right hand swelling and the pain and initial work-up suggest the most likely right hand cellulitis Patient seen by the general surgery and suggest continues IV antibiotic patient have a significant comorbid conditions Hospital Course Hospital Course: Patient was admitted by Dr. 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 I saw patient today, the RN advised me that patient was ready for discharge. 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 Zuleta his primary care physician, the surgeon regarding regarding the calciphylaxis Physical Exam Vital Signs: Temp Pulse Resp BP Pulse Ox 98.3 F 58 L 17 115/61 100 08/04/19 14:32 08/04/19 14:32 08/04/19 14:32 08/04/19 14:32 08/04/19 14:32 Intake & Output 08/03/19 08/04/19 08/05/19 06:59 06:59 06:59 Intake Total 860 490 300 Output Total 1100 Balance 860 -610 300 Weight 82 kg 83 kg General appearance: PRESENT: no acute distress Eye exam: PRESENT: PERRLA Respiratory exam: PRESENT: clear to auscultation john Cardiovascular exam: PRESENT: +S1, +S2 GI/Abdominal exam: PRESENT: soft Extremities exam: PRESENT: other - Gangrene affecting multiple fingers of his right hand Neurological exam: PRESENT: alert Results Laboratory Results: WBC 4.4 10^3/uL (4.0-10.5) 08/04/19 04:50 RBC 3.07 10^6/uL (4.35-5.55) L 08/04/19 04:50 Hgb 9.5 g/dL (13.5-17.0) L 08/04/19 04:50 Hct 29.9 % (37.9-51.0) L 08/04/19 04:50 MCV 97 fl (80-97) 08/04/19 04:50 MCH 30.9 pg (27.0-33.4) 08/04/19 04:50 MCHC 31.8 g/dL (32.0-36.0) L 08/04/19 04:50 RDW 23.8 % (11.5-14.0) H 08/04/19 04:50 Plt Count 129 10^3/uL (150-450) L 08/04/19 04:50 Lymph % (Auto) Not Reportable 08/04/19 04:50 [place] % (Auto) Not Reportable 08/04/19 04:50 Eos % (Auto) Not Reportable 08/04/19 04:50 Baso % (Auto) Not Reportable 08/04/19 04:50 Absolute Neuts (auto) Not Reportable 08/04/19 04:50 Absolute Lymphs (auto) Not Reportable 08/04/19 04:50 Absolute Monos (auto) Not Reportable 08/04/19 04:50 Absolute Eos (auto) Not Reportable 08/04/19 04:50 Absolute Basos (auto) Not Reportable 08/04/19 04:50 Total Counted 100 08/04/19 04:50 Seg Neutrophils % Not Reportable 08/04/19 04:50 Seg Neuts % (Manual) 71 % (42-78) 08/04/19 04:50 Band Neutrophils % 2 % (3-5) L 08/02/19 05:32 Lymphocytes % (Manual) 8 % (13-45) L 08/04/19 04:50 Monocytes % (Manual) 14 % (3-13) H 08/04/19 04:50 Eosinophils % (Manual) 7 % (0-6) H 08/04/19 04:50 Basophils % (Manual) 0 % (0-2) 08/04/19 04:50 Abs Neuts (Manual) 3.1 10^3/uL (1.7-8.2) 08/04/19 04:50 Abs Lymphs (Manual) 0.4 10^3/uL (0.5-4.7) L 08/04/19 04:50 Abs Monocytes (Manual) 0.6 10^3/uL (0.1-1.4) 08/04/19 04:50 Absolute Eos (Manual) 0.3 10^3/uL (0.0-0.6) 08/04/19 04:50 Abs Basophils (Manual) 0.0 10^3/uL (0.0-0.2) 08/04/19 04:50 Toxic Vacuolation PRESENT 08/04/19 04:50 Giant Platelets PRESENT 07/28/19 14:16 Platelet Comment DECREASED 08/04/19 04:50 Polychromasia SLIGHT 07/28/19 14:16 Poikilocytosis 1+ 08/04/19 04:50 Anisocytosis 3+ 08/04/19 04:50 Macrocytosis SLIGHT 07/28/19 14:16 Target Cells 1+ 08/04/19 04:50 Tear Drop Cells SLIGHT 08/02/19 05:32 Ovalocytes SLIGHT 08/02/19 05:32 Schistocytes SLIGHT 07/28/19 14:16 PT 16.9 SEC (11.4-15.4) H 07/28/19 14:16 INR 1.36 07/28/19 14:16 APTT 43.2 SEC (23.5-35.8) H 07/28/19 14:16 Sodium 136.1 mmol/L (137-145) L 08/04/19 04:50 Potassium 4.3 mmol/L (3.6-5.0) 08/04/19 04:50 Chloride 97 mmol/L (98-107) L 08/04/19 04:50 Carbon Dioxide 29 mmol/L (22-30) 08/04/19 04:50 Anion Gap 10 (5-19) 08/04/19 04:50 BUN 19 mg/dL (7-20) 08/04/19 04:50 Creatinine 4.82 mg/dL (0.52-1.25) H 08/04/19 04:50 Est GFR ( Amer) 15 (>60) L 08/04/19 04:50 Est GFR (MDRD) Non-Af 12 (>60) L 08/04/19 04:50 Glucose 104 mg/dL (75-110) 08/04/19 04:50 POC Glucose 116 mg/dL (70-110) H 08/04/19 11:02 Lactic Acid 2.1 mmol/L (0.7-2.1) 07/28/19 20:00 Calcium 8.9 mg/dL (8.4-10.2) 08/04/19 04:50 Phosphorus 6.2 mg/dL (2.5-4.5) H 08/01/19 09:50 Total Bilirubin 1.4 mg/dL (0.2-1.3) H 07/28/19 14:16 Direct Bilirubin 1.0 mg/dL (0.0-0.4) H 07/28/19 14:16 Neonat Total Bilirubin Not Reportable 07/28/19 14:16 Neonat Direct Bilirubin Not Reportable 07/28/19 14:16 Neonat Indirect Bili Not Reportable 07/28/19 14:16 AST 17 U/L (17-59) 07/28/19 14:16 ALT 6 U/L (<50) 07/28/19 14:16 Alkaline Phosphatase 106 U/L (38-126) 07/28/19 14:16 Total Protein 7.9 g/dL (6.3-8.2) 07/28/19 14:16 Albumin 3.0 g/dL (3.5-5.0) L 07/28/19 14:16 PTH Intact 97.7 pg/mL (10.0-65.0) H 08/01/19 14:45 Impressions: Hand X-Ray 07/28/19 13:24 IMPRESSION: No plain film evidence for osteomyelitis. No acute fracture. Prior amputation 3rd ray on the left. Extensive vascular calcification. Head CT 08/02/19 08:00 IMPRESSION: No acute intracranial abnormality. EVIDENCE OF ACUTE STROKE: NO. Stroke Is this a Stroke Patient?: No Acute Heart Failure - Is this a Heart Failure Patient?: No
== END 2019-08-04 15:32 | disposition home or self-care (01) | DRG 299 ==
LOC: ER 13:00 → EH 17:13 → 3W 18:36
PROVIDERS: ADMIT Family Medicine; ATTEND Family Medicine
PROC: 5A1D70Z Performance of Urinary Filtration, Intermittent, Less than 6 Hours Per Day (ICD-10-PCS; principal; 2019-07-30)
DX: E11.52 Type 2 diabetes mellitus with diabetic peripheral angiopathy with gangrene (principal); N18.6 End stage renal disease; D61.818 Other pancytopenia; I96 Gangrene, not elsewhere classified; I12.0 Hypertensive chronic kidney disease with stage 5 chronic kidney disease or end stage renal disease; N25.81 Secondary hyperparathyroidism of renal origin; L03.113 Cellulitis of right upper limb; I50.42 Chronic combined systolic (congestive) and diastolic (congestive) heart failure; E83.59 Other disorders of calcium metabolism; E83.39 Other disorders of phosphorus metabolism; D63.1 Anemia in chronic kidney disease; E11.22 Type 2 diabetes mellitus with diabetic chronic kidney disease; I25.10 Atherosclerotic heart disease of native coronary artery without angina pectoris; I48.91 Unspecified atrial fibrillation; J44.9 Chronic obstructive pulmonary disease, unspecified; F32.9 Major depressive disorder, single episode, unspecified; I25.5 Ischemic cardiomyopathy; I45.10 Unspecified right bundle-branch block; G89.4 Chronic pain syndrome; K21.9 Gastro-esophageal reflux disease without esophagitis; Z89.512 Acquired absence of left leg below knee; Z89.511 Acquired absence of right leg below knee; Z79.82 Long term (current) use of aspirin; Z79.02 Long term (current) use of antithrombotics/antiplatelets; Z99.2 Dependence on renal dialysis; Z95.1 Presence of aortocoronary bypass graft; Z89.022 Acquired absence of left finger(s); I25.2 Old myocardial infarction; Z87.891 Personal history of nicotine dependence; Z88.3 Allergy status to other anti-infective agents; Z88.6 Allergy status to analgesic agent; Z91.14 Patient's other noncompliance with medication regimen; Z79.4 Long term (current) use of insulin; Z74.01 Bed confinement status
CPT/HCPCS: 36415; 70450; 80048; 80053; 82962; 83605; 83970; 84100; 85025; 85027; 85610; 85730; 87040; 87077; 87150; 87186; 93005; 93010; 93930; 96374; 99283; J0690; J0692; J1170; J1644; J3490; Q5105

== ENCOUNTER 2019-08-10 06:02 | Emergency (ER) | payer MEDICARE, MEDICAID ==
[2019-08-10] MEDS ORDERED: ATROPINE SULFATE INJ 1 MG/1 ML VIAL ONE (06:15)
[2019-08-10] MEDS ORDERED: SODIUM BICARBONATE 8.4% INJ 50 MEQ/50 ML DISP.SYRIN ONE (06:20)
[2019-08-10] MEDS ORDERED: MIDAZOLAM 2 MG/2 ML INJ IV ONE ×2 (06:34→07:17)
[2019-08-10] MEDS ORDERED: MIDAZOLAM HCL 50 MG/100 ML RTUINJ IV PRN (06:37)
[2019-08-10] MEDS ORDERED: MORPHINE SULFATE 10 MG/ML INJ IV ONE (07:14)
[2019-08-10 07:16] LABS: HEMOGLOBIN 11.8 g/dL (13.5-17.0); MEAN CORPUSCULAR HEMOGLOBIN 31.2 pg (27.0-33.4); MEAN CORPUSCULAR HGB CONC 31.2 g/dL (32.0-36.0); MEAN CORPUSCULAR VOLUME 100 fl (80-97); PLATELET COUNT 145 10^3/uL (150-450); RED CELL DISTRIBUTION WIDTH 23.5 % (11.5-14.0); WHITE BLOOD COUNT 15.6 10^3/uL (4.0-10.5)
[2019-08-10] MEDS ORDERED: SODIUM BICARBONATE 8.4% INJ 50 MEQ/50 ML DISP.SYRIN IV ONE (07:41)
[2019-08-10] MEDS ORDERED: ATROPINE SULFATE INJ 1 MG/1 ML VIAL IV ONE (07:41)
[2019-08-10] MEDS ORDERED: ETOMIDATE INJ/PF 20 MG/10 ML SDV IV ONE (07:42)
[2019-08-10] MEDS ORDERED: VECURONIUM BROMIDE INJ 10 MG VIAL IV ONE (07:43)
[2019-08-10] MEDS ORDERED: DEXTROSE 5%-WATER 250 ML with NOREPINEPHRINE BITARTRATE 4 MG IV PRN ×2 (07:44)
[2019-08-10] MEDS ORDERED: NORMAL SALINE 1000 ML 1,000 ML IV ONE (07:47)
[2019-08-10 07:54] LABS: ABSOLUTE LYMPHOCYTES# (MANUAL) 0.5 10^3/uL (0.5-4.7); BAND NEUTROPHILS % (MANUAL) 8 % (3-5); BASOPHILS % (MANUAL) 0 % (0-2); EOSINOPHILS % (MANUAL) 0 % (0-6); LYMPHOCYTES % (MANUAL) 0 % (13-45); MONOCYTES % (MANUAL) 0 % (3-13); SEGMENTED NEUTROPHILS % (MAN) 89 % (42-78); TOTAL CELLS COUNTED 100
[2019-08-10 07:56] LABS: ANISOCYTOSIS 3+; BURR CELLS SLIGHT; POIKILOCYTOSIS SLIGHT; POLYCHROMASIA SLIGHT; SCHISTOCYTES SLIGHT; TARGET CELLS SLIGHT; TOXIC VACUOLATION PRESENT
[2019-08-10 07:57] LABS: PAPPENHEIMER BODIES PRESENT; PLATELET COMMENT DECREASED; PLATELET LARGE PRESENT
[2019-08-10] MEDS ORDERED: ROCURONIUM BROMIDE INJ 50 MG/5 ML VIAL IV ONE ×2 (08:02→10:39)
[2019-08-10 08:15] VITALS: BP 65/55
--- NOTE | 2019-08-10 08:58 | ER Document Report ---
Entered by HUSEYIN GOMEZ SCRIBE 08/10/19 0615 Acting as scribe for:CELIA HEBERT MD ED General - General Stated Complaint: BRADYCARDIA Primary Care Provider: FEI BAEZ MD [Primary Care Provider] - Follow up as needed Mode of Arrival: Ambulatory Information source: Patient Notes: This 64 year old male patient presents to the emergency department today via EMS for concerns of bradycardia per EMS. EMS reports that they were told that the patient did not have a DNR so they began externally pacing the patient prior to arrival. Initial history is incredibly limited. About 45 minutes after the patient arrived family showed up so additional history was obtained. According to family, the patient went to dialysis on Tuesday and they were told that he was too hypotensive to undergo dialysis and Dr. Merino spoke to his primary care doctor, Dr. Baez, and it was decided that dialysis would be terminated as the patient's condition was such that there was nothing more they could offer him. According to family, because dialysis was terminated on Tuesday they did not try to go to dialysis on Tuesday and they report that a hospice nurse was supposed to come to their house yesterday but they never showed up. states that this morning the patient complained of abdominal pain so she called EMS, states that EMS asked for a "gorman piece of paper" and they did not have one to give them. Family all in agreement with making the patient comfort care and created a DNR. All current care discontinued, comfort care given. TRAVEL OUTSIDE OF THE [place] IN LAST 30 DAYS: No - Related Data Allergies/Adverse Reactions: erythromycin base Allergy (Verified 03/12/19 07:04) vancomycin [Vancomycin] Adverse Reaction (Unknown, Verified 03/12/19 07:04) molina syndrome morphine Adverse Reaction (Verified 03/12/19 07:04) Past Medical History - General Information source: Emergency Med Personnel, [facility] Records Cannot obtain history due to: Unstable vital signs, Altered mental status - Social History Smoking Status: Smoker,Current Status Unk Frequency of alcohol use: None Drug Abuse: None Lives with: Family Family History: None, Reviewed & Not Pertinent, CAD, Hypertension, Malignancy - Past Medical History Cardiac Medical History: Reports: Hx Atrial Fibrillation, Hx Congestive Heart Failure, Hx Coronary Artery Disease, Hx Heart Attack - x3, Hx Hypertension, Hx Peripheral Vascular Disease Pulmonary Medical History: Reports: Hx COPD, Hx Respiratory Failure Endocrine Medical History: Reports: Hx Diabetes Mellitus Type 2 Renal/ Medical History: Reports: Hx End Stage Renal Disease, Hx Hemodialysis, Hx Renal Insufficiency GI Medical History: Reports: Hx Gastroesophageal Reflux Disease Psychiatric Medical History: Reports: Hx Depression Past Surgical History: Reports: Hx Cardiac Catheterization, Hx Cardiac Surgery - triple bypass, Hx Coronary Artery Bypass Graft - X3 vessel on October 26, 2017, Hx Coronary Stent, Hx Orthopedic Surgery - R great toe amp. L 3rd/4th toe amp. Marcos ateral BKA. L 3rd finger amp., Hx Vascular Surgery, Other - Cervical laminectomy in 2012 - Immunizations Hx Diphtheria, Pertussis, Tetanus Vaccination: Yes Hx Pneumococcal Vaccination: 02/05/15 Review of Systems - Review of Systems -: Yes ROS unobtainable due to patient's medical condition Physical Exam - Vital signs Vitals: Resp 25 H 08/10/19 06:12 - General In distress: Severe - HEENT Head: Normocephalic, Atraumatic Eyes: Normal Conjunctiva: Normal - Respiratory Respiratory status: Tachypnea, Other - Agonal respirations - Cardiovascular Rhythm: Bradycardia Heart sounds: Normal auscultation - Abdominal Inspection: Normal Distension: No distension Bowel sounds: Normal Tenderness: Nontender - Extremities General upper extremity: Other - LUE fistula General lower extremity: Other - Bilateral BKAs - Psychological Associated symptoms: Other - unable to assess - Skin Skin Temperature: Warm Skin Moisture: Dry Skin Color: Normal Course - Re-evaluation Re-evalutation: 08/10/19 07:33 Patient is now in asystole 08/10/19 08:37 Patient presents to the emergency department via EMS EMS with cardiac pacing and hemodynamic compromise. Patient's blood pressure is marginal respirations tachypneic and bradycardic rhythm. Patient is arousable. Patient had been given medications including atropine and external pacemakers and Versed. Patient is a hemodialysis patient who recently was discontinued off dialysis due to his poor physical state. Patient had entered dialysis on Tuesday and due to his hypotension and an extreme comorbid issues patient was determined that dialysis was discontinued. Hospice was called in to visit patient and family however that visit never occurred. This a.m. patient complained of abdominal pain therefore his called EMS. Unbeknownst at this time that EMS was reported that patient was a full code. During the course of events family did arrive and I spoke with family members including his and children and learned that dialysis had been completely terminated and that hospice comfort care had been called. I discussed with family members that patient was on life support at this time including ventilator breathing support and external pacemakers just to maintain his living state at this time. After further discussion family understood after I spoke with Dr. Baez and explained to them that patient was is a DNR based on the fact that termination of dialysis services had been done already and they concurred with that and understood that. Therefore a DNR statement was created by me. We decelerated our care including ventilator support and external pacer support and IV pressor support. And patient subsequently with asystole at 7 3 3 AM. Case was discussed with Dr. Baez. - Vital Signs Vital signs: Temp Pulse Resp BP Pulse Ox 26 H 65/55 L 100 08/10/19 07:09 08/10/19 07:09 08/10/19 07:09 - Laboratory Result Diagrams: 08/10/19 06:47 08/10/19 06:47 Laboratory results interpreted by me: 08/10/19 06:47 WBC 15.6 H RBC 3.80 L Hgb 11.8 L MCV 100 H MCHC 31.2 L RDW 23.5 H Plt Count 145 L Seg Neuts % (Manual) 89 H Band Neutrophils % 8 H Lymphocytes % (Manual) 0 L Monocytes % (Manual) 0 L Abs Neuts (Manual) 15.1 H Abs Monocytes (Manual) 0.0 L Laboratory reports were minimal and that a chemistry was never obtained white b lood cell count 15.6 elevated. - Diagnostic Test Radiology results interpreted by me: 08/10/19 08:42 No twelve-lead EKG or x-rays were obtained. Procedures - Central Line Right Femoral Consent obtained: No - emergency Central line pre-insertion: Sterile PPE donned, Betadine prep applied, Chloraprep applied, Sterile drapes applied Central line lumen type: Triple Anesthetic type: 1% Lidocaine mL's of anesthesia: 5 Ultrasound guided: Yes Number of attempts: 1 - unsuccesful Complications: Yes - guide wire coiled Left Femoral Consent obtained: No - emergency Central line pre-insertion: Sterile PPE donned, Betadine prep applied, Chloraprep applied, Sterile drapes applied Central line lumen type: Triple Anesthetic type: 1% Lidocaine mL's of anesthesia: 5 Ultrasound guided: Yes Line secured with sutures: No Complications: Yes - Guide wire coiled again. No more attempts, now made DNR - Intubation Orotracheal Airway evaluation: Normal anatomy Mallampati Classification: Class 1 Medications: Etomidate, Other - rocuronium Intubation method: Orotracheal Blade type: Other - [place] scope Equipment used: Glidescope ETT size: 8.0 ETT secured at: Lips ETT secured at (cm): 23 Breath Sounds after Intubation: Equal Ventilator settings: SIMV Post Intubation Xray: No Intubation Complications: No complications Critical Care Note - Critical Care Note Total time excluding time spent on procedures (mins): 40 - Monitoring cardiovascular status of hypotension and arrhythmia of bradycardia requiring external pacemaker and pressor support. Discharge - Discharge Clinical Impression: Chronic renal failure, Bradycardia, Do not resuscitate, Hypotension Condition: Critical Disposition: Referrals: FEI BAEZ MD [Primary Care Provider] - Follow up as needed I personally performed the services described in the documentation, reviewed and edited the documentation which was dictated to the scribe in my presence, and it accurately records my words and actions.
== END 2019-08-10 09:32 | disposition expired ==
LOC: ER 06:02
DX: I13.2 Hypertensive heart and chronic kidney disease with heart failure and with stage 5 chronic kidney disease, or end stage renal disease (principal); R00.1 Bradycardia, unspecified; I95.9 Hypotension, unspecified; R10.9 Unspecified abdominal pain; I48.91 Unspecified atrial fibrillation; I50.9 Heart failure, unspecified; E11.22 Type 2 diabetes mellitus with diabetic chronic kidney disease; N18.6 End stage renal disease; Z66 Do not resuscitate; Z88.3 Allergy status to other anti-infective agents; Z88.6 Allergy status to analgesic agent; Z99.2 Dependence on renal dialysis; I25.2 Old myocardial infarction; Z95.1 Presence of aortocoronary bypass graft; Z89.512 Acquired absence of left leg below knee; Z89.511 Acquired absence of right leg below knee
CPT/HCPCS: 99291; 96375; 96365; 36415; 82962; 85025; 94003; 36556; 31500; J2250 ×2; J0461; J3490 ×3; J2270; J7060; J7030